=== PATIENT | female | born 1950 | race Two or more races ===

== ENCOUNTER 2019-04-30 10:14 | Emergency (ER) | payer MEDICARE, MEDICAID ==
[~2019-04-30] VITALS: Ht 157.5 cm; Wt 59.0 kg
[~2019-04-30 10:14] MED LIST: ACETAMINOPHEN80 M2 GT; ASCORBIC ACID500 MG GT; ATORVASTATIN CA20 MG GT; CATAPRES0.1 MG GT; DEPAKOTE ER250 MG GT; DOCUSATE SODIU100 MG GT; DUONEB 0.5-3(2.53 ML HHN; FLORANEX GRANU1 EACH GT; JANUVIA25 MG GT; LACTULOSE20 GM/301 GT; METFORMIN HCL1000 M1 GT; MULTI-VITAMIN-1 EACH PO; NEURONTIN100 MG GT; NOVOLIN R100 UNIT/1 SUBQ; SENNA-S TABLET1 EACH GT
--- NOTE | 2019-04-30 10:31 | NUR ---
ED Nurse Note: Pt brought into ED from SNF by ambulance. Ambulance states SNF said pt O2 sat was as low as 77%. Pt current O2 sat is 100% RA and lungs clear to auscultation. VSS. Pt has had perineal/pelvic pain for 4 months 01/21. Pt states burning while urinating. Pt set up on monitor. Pt states she normally uses w/c. Pt has wound abdomen CDI.
[2019-04-30 10:35] VITALS: BP 123/88
[2019-04-30] MEDS ORDERED: VALPROIC A250 MG/51 PO (10:37)
[2019-04-30] MEDS ORDERED: FERROUS SULFAT325 MG ORAL (10:37)
[2019-04-30] MEDS ORDERED: SINEMET 25-1001 EAC1 ORAL (10:37)
[2019-04-30] MEDS ORDERED: FUROSEMIDE40 MG ORAL (10:37)
[2019-04-30] MEDS ORDERED: GLUCAGEN1 M1 IJ (10:37)
[2019-04-30 11:47] LABS: HEMATOCRIT 23.8 % (37.0-47.0); HEMOGLOBIN 7.7 G/DL (12.0-16.0); MEAN CORPUSCULAR VOLUME 93 FL (80-99); PLATELET COUNT 322 K/UL (150-450); RED BLOOD COUNT 2.56 M/UL (4.20-5.40); RED CELL DISTRIBUTION WIDTH 13.4 % (11.6-14.8); WHITE BLOOD COUNT 8.3 K/UL (4.8-10.8)
[2019-04-30 11:59] LABS: ANION GAP 12 mmol/L (5-15); BLOOD UREA NITROGEN 17 mg/dL (7-18); CARBON DIOXIDE 23 MMOL/L (21-32); CHLORIDE 109 MMOL/L (98-107); CREATININE 0.9 MG/DL (0.55-1.30); POTASSIUM 4.7 MMOL/L (3.5-5.1); SODIUM 144 MMOL/L (136-145)
[2019-04-30 12:05] LABS: ALANINE AMINOTRANSFERASE 35 U/L (12-78); ALBUMIN 2.8 G/DL (3.4-5.0); ALBUMIN/GLOBULIN RATIO 0.7 (1.0-2.7); ALKALINE PHOSPHATASE 49 U/L (46-116); ASPARTATE AMINO TRANSFERASE 22 U/L (15-37); BILIRUBIN,TOTAL 0.1 MG/DL (0.2-1.0)
[2019-04-30 13:07] LABS: APPEARANCE,URINE CLEAR; BILIRUBIN, URINE NEGATIVE (NEGATIVE); COLOR,URINE PALE YELLOW; GLUCOSE, URINE (UA) NEGATIVE (NEGATIVE); KETONES,URINE 1+ (NEGATIVE); LEUKOCYTE ESTERASE ,URINE NEGATIVE (NEGATIVE); NITRITE,URINE NEGATIVE (NEGATIVE); PH,URINE 5 (4.5-8.0); PROTEIN,URINE NEGATIVE (NEGATIVE); UROBILINOGEN,URINE NORMAL MG/DL (0.0-1.0)
[2019-04-30] MEDS ORDERED: FLUCONAZOLE100 MG ORAL (13:14)
[2019-04-30] MEDS ORDERED: Fluconazole 150mg tab ORAL ONE (13:15)
--- NOTE | 2019-04-30 13:15 | NUR ---
ED Nurse Note: Report given to Claudia LINDSAY at [facility].
[2019-04-30 13:28] VITALS: BP 114/73
--- NOTE | 2019-04-30 13:30 | NUR ---
ER DISCHARGE NOTE: Patient is cleared to be discharged per ERMD, pt is aox4, on room air, with stable vital signs. pt was given dc and prescription instructions, pt was able to verbalize understanding, pt id band and iv site removed without complications. pt took all belongings. Ambulance [id number] is taking pt to SNF. Report given to Claudia LINDSAY at [facility].
--- NOTE | 2019-04-30 18:11 | Emergency Room Report ---
History of Present Illness General Chief Complaint: Female Urogenital Problems Source: Patient, Medical Record Present Illness HPI 68-year-old female presents ED for evaluation. Brought in by EMS from long-term facility. Per nursing staff patient had an episode of desaturation around 3 AM. Lasted for a few seconds then resolved. Patient satting 100% on room air on arrival. Denies any shortness of breath or chest pain. Denies fevers or chills. Patient does admit to vaginal discharge. States she is been having these symptoms for several months now. 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 Describes itchy sensation. Notes dysuria denies hematuria. Denies abdominal pain. Denies spotting. No other aggravating relieving factors. Denies any other associated symptoms Allergies: Coded Allergies: No Known Allergies (Unverified , 11/08/15) Patient History Past Medical History: HTN, COPD, seizures Past Surgical History: none Pertinent Family History: none Social History: Denies: smoking, alcohol use, drug use Now: No Immunizations: UTD Reviewed Nursing Documentation: PMH: Agreed; PSxH: Agreed Nursing Documentation-PMH Hx Hypertension: Yes Hx COPD: Yes Hx Diabetes: Yes Hx Cancer: No Hx Gastrointestinal Problems: Yes - G tube dysphagia Hx Neurological Problems: Yes Hx Dementia: Yes Hx Seizures: Yes Review of Systems All Other Systems: negative except mentioned in HPI Physical Exam Vital Signs Date Time Temp Pulse Resp B/P (MAP) Pulse Ox O2 Delivery O2 Flow Rate FiO2 04/30/19 10:17 98.1 80 16 120/80 (93) 98 Room Air Sp02 EP Interpretation: reviewed, normal General Appearance: no apparent distress, alert, GCS 15, non-toxic Head: normocephalic, atraumatic Eyes: bilateral eye normal inspection, bilateral eye PERRL ENT: hearing grossly normal, normal pharynx, no angioedema, normal voice Neck: full range of motion, supple/symm/no masses Respiratory: chest non-tender, lungs clear, normal breath sounds, speaking full sentences Cardiovascular #1: regular rate, rhythm, no edema Cardiovascular #2: 2+ carotid (R), 2+ carotid (L), 2+ radial (R), 2+ radial (L) , 2+ dorsalis pedis (R), 2+ dorsalis pedis (L) Gastrointestinal: normal bowel sounds, non tender, soft, non-distended, no guarding, no rebound Rectal: deferred Genitourinary: normal inspection, no CVA tenderness, other - 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 os closed. slight white discharge noted. no CMT. no adnexal tendeness Musculoskeletal: back normal, normal range of motion, gait/station normal, non- tender Neurologic: alert, motor strength/tone normal, oriented x3, sensory intact, responsive, speech normal Psychiatric: judgement/insight normal, memory normal, mood/affect normal, no suicidal/homicidal ideation Reflexes: 3+ bicep (R), 3+ bicep (L), 3+ tricep (R), 3+ tricep (L), 3+ knee (R) , 3+ knee (L) Lymphatic: no adenopathy Medical Decision Making Diagnostic Impression: Primary Impression: Vaginal discharge ER Course Hospital Course 68-year-old female referred to ED for vaginal discharge. Episode of shortness of breath. Asymptomatic now Differential diagnoses include: Cervicitis, UTI, yeast infection, STD Clinical course Patient placed on stretcher in ED. After initial history, physical exam reveals an elderly female in no acute distress. Rolls Baker present. On pelvic exam there is a scant white discharge noted. No CMT. No adnexal tenderness. Collection taken for wet mount. I ordered labs, IV fluids, chest x-ray Labs - no leukocytosis, hemoglobin/hematocrit stable, electrolytes okay, UA negative Wet mount No trichomonas, no clue cells, scant yeast noted chest x-ray No focal consolidation or acute process Patient remains comfortable during ED course. Stable vitals. No episodes of hypoxia. On room air. Discussed with PMD Dr. Rios. He agrees that patient can be safely discharged back to long-term facility. Given Diflucan in ED. Will prescribe Diflucan. diagnosis - vaginal discharge Stable and discharged to SNF with Rx Diflucan. Followup with PMD/EMERGENCY ROOM TECH. Return to ED if symptoms recur or worsen Labs Test 04/30/19 11:22 04/30/19 12:00 White Blood Count 8.3 K/UL (4.8-10.8) Red Blood Count 2.56 M/UL (4.20-5.40) Hemoglobin 7.7 G/DL (12.0-16.0) Hematocrit 23.8 % (37.0-47.0) Mean Corpuscular Volume 93 FL (80-99) Mean Corpuscular Hemoglobin 29.9 PG (27.0-31.0) Mean Corpuscular Hemoglobin Concent 32.1 G/DL (32.0-36.0) Red Cell Distribution Width 13.4 % (11.6-14.8) Platelet Count 322 K/UL (150-450) Mean Platelet Volume 5.4 FL (6.5-10.1) Neutrophils (%) (Auto) % (45.0-75.0) Lymphocytes (%) (Auto) % (20.0-45.0) Monocytes (%) (Auto) % (1.0-10.0) Eosinophils (%) (Auto) % (0.0-3.0) Basophils (%) (Auto) % (0.0-2.0) Differential Total Cells Counted 100 Neutrophils % (Manual) 54 % (45-75) Lymphocytes % (Manual) 41 % (20-45) Monocytes % (Manual) 4 % (1-10) Eosinophils % (Manual) 1 % (0-3) Basophils % (Manual) 0 % (0-2) Band Neutrophils 0 % (0-8) Platelet Estimate Adequate Platelet Morphology Normal Polychromasia 1+ Hypochromasia 1+ Sodium Level 144 MMOL/L (136-145) Potassium Level 4.7 MMOL/L (3.5-5.1) Chloride Level 109 MMOL/L (98-107) Carbon Dioxide Level 23 MMOL/L (21-32) Anion Gap 12 mmol/L (5-15) Blood Urea Nitrogen 17 mg/dL (7-18) Creatinine 0.9 MG/DL (0.55-1.30) Estimat Glomerular Filtration Rate > 60 mL/min (>60) Glucose Level 132 MG/DL (74-106) Calcium Level 9.0 MG/DL (8.5-10.1) Total Bilirubin 0.1 MG/DL (0.2-1.0) Aspartate Amino Transf (AST/SGOT) 22 U/L (15-37) Alanine Aminotransferase (ALT/SGPT) 35 U/L (12-78) Alkaline Phosphatase 49 U/L (46-116) Total Protein 6.6 G/DL (6.4-8.2) Albumin 2.8 G/DL (3.4-5.0) Globulin 3.8 g/dL Albumin/Globulin Ratio 0.7 (1.0-2.7) Lipase 305 U/L (73-393) Urine Color Pale yellow Urine Appearance Clear Urine pH 5 (4.5-8.0) Urine Specific [place] 1.020 (1.005-1.035) Urine Protein Negative (NEGATIVE) Urine Glucose (UA) Negative (NEGATIVE) Urine Ketones 1+ (NEGATIVE) Urine Blood Negative (NEGATIVE) Urine Nitrite Negative (NEGATIVE) Urine Bilirubin Negative (NEGATIVE) Urine Urobilinogen Normal MG/DL (0.0-1.0) Urine Leukocyte Esterase Negative (NEGATIVE) Chest X-Ray Diagnostic Results Chest X-Ray Diagnostic Results : Chest X-Ray Ordered: Yes # of Views/Limited/Complete: 1 View Indication: Shortness of Breath EP Interpretation: Yes Interpretation: no consolidation, no effusion, no pneumothorax, no acute cardiopulmonary disease Impression: No acute disease Electronically Signed by: Electronically signed by Agustin Cruz MD Last Vital Signs Date Time Temp Pulse Resp B/P (MAP) Pulse Ox O2 Delivery O2 Flow Rate FiO2 04/30/19 13:28 98.7 80 19 114/73 100 Room Air Status: improved Disposition: XFER SNF Condition: Stable Scripts Fluconazole (FLUCONAZOLE) 100 Mg Tablet 100 MG ORAL DAILY, #3 TAB 0 Refills Prov: Agustin Cruz MD 04/30/19 Referrals: Johny Williamson MD, Ali MD (PCP) Patient Instructions: Vaginal Yeast Infection, Adult, Vaginitis Agustin Cruz MD Apr 30, 2019 18:11
== END 2019-04-30 13:28 ==
LOC: EDBD 10:14 → EMR 11:10
DX: N89.8 Other specified noninflammatory disorders of vagina (principal); I10 Essential (primary) hypertension; J44.9 Chronic obstructive pulmonary disease, unspecified; E11.9 Type 2 diabetes mellitus without complications; G40.909 Epilepsy, unspecified, not intractable, without status epilepticus; F03.90 Unspecified dementia, unspecified severity, without behavioral disturbance, psychotic disturbance, mood disturbance, and anxiety; Z93.1 Gastrostomy status
CPT/HCPCS: 36415; 71045; 80053; 81003; 83690; 85007; 85025; 87210; 99284

== ENCOUNTER 2019-05-11 23:22 | Inpatient (IN) | payer MEDICARE, MEDICAID ==
[~2019-05-11] VITALS: Ht 154.9 cm; Wt 54.4 kg
[~2019-05-11 23:22] MED LIST changes: +FERROUS SULFAT325 MG ORAL; +FLUCONAZOLE100 MG ORAL; +FUROSEMIDE40 MG ORAL; +GLUCAGEN1 M1 IJ; +SINEMET 25-1001 EAC1 ORAL; +VALPROIC A250 MG/51 PO
--- NOTE | 2019-05-11 23:30 | NUR ---
ED Nurse Note: PT KATELYNN FIRST[facility] FROM [facility] D/T NVD, ABD PAIN X1DAY. PER EMS, PT HAD FEVER OF 103 AT FACILITY AND TYLENOL WAS GIVEN. OT TEMP AT TRIAGE IS 97.7. PT VSS, NAD. ERMD AT BEDSIDE. WILL CONTINUE TO MONITOR PATIENT.
[2019-05-11] MEDS ORDERED: DiphenhydrAMINE 50mg/ml Inj IVP ONE (23:45)
[2019-05-11] MEDS ORDERED: Metoclopramide 10mg/2ml Inj IVP ONE (23:45)
[2019-05-11] MEDS ORDERED: FUROSEMIDE40 MG ORAL (23:49)
[2019-05-11] MEDS ORDERED: CITALOPRAM10 MG/5 M1 ORAL (23:49)
[2019-05-11] MEDS ORDERED: MOM30 ML ORAL (23:49)
[2019-05-11] MEDS ORDERED: HUMALOG100 UNIT/3 SUBQ (23:49)
[2019-05-11] MEDS ORDERED: COLACE100 MG ORAL (23:49)
[2019-05-11] MEDS ORDERED: DULCOLAX10 MG RC (23:49)
[2019-05-11] MEDS ORDERED: MIRALAX17 G2 ORAL (23:49)
[2019-05-11] MEDS ORDERED: AMANTADINE50 MG/5 ML ORAL (23:49)
--- NOTE | 2019-05-11 23:50 | NUR ---
ED Nurse Note: BLOOD AND URINE COLLECTED AND SENT TO LAB.
[2019-05-12] VITALS (7 sets, daily range): BP systolic 94–131; BP diastolic 51–71
--- NOTE | 2019-05-12 | NUR ---
ED Nurse Note: XR AT BEDSIDE.
--- NOTE | 2019-05-12 00:04 | Emergency Room Report ---
History of Present Illness General Chief Complaint: Vomiting Source: Patient, Medical Record, EMS Present Illness HPI Patient presents with vomiting. Began earlier today. She is not been able to keep anything down. The patient has a history of insulin-dependent diabetes. She believes her blood sugars have been okay. She denies abdominal pain. She has been moving her bowels without difficulty. She denies any fevers or chills. No sore throat, chest pain, palpitations, shortness of breath, cough, joint pain , rashes, depression, anxiety, visual changes, dizziness, headache. Last admitted 2015 for sepsis. Charge diagnoses: 1. Sepsis possibly from urinary tract infection. 2. Urinary tract infection with Escherichia coli extended-spectrum beta-lactamase. 3. Seizure disorder. 4. Diabetes mellitus with hyperglycemia. 5. Dysphagia status post percutaneous endoscopic gastrostomy. 6. Chronic encephalopathy. 7. Hyperlipidemia with type 2 diabetes. 8. Elevated liver function tests with ultrasound finding of cholelithiasis and normal bilirubin. 9. Scab on the right ear and stage I decubitus ulcer on the sacral coccygeal area present on admission. Allergies: Coded Allergies: No Known Allergies (Unverified , 11/08/15) Patient History Past Medical History: see triage record, old chart reviewed Past Surgical History: other - Gastrostomy tube Social History: Denies: smoking, alcohol use, drug use Social History Narrative [facility] facility Now: No Reviewed Nursing Documentation: PMH: Agreed; PSxH: Agreed Nursing Documentation-PMH Hx Cardiac Problems: Yes - tachycardia, aterosclerosis of aorta Hx Hypertension: Yes Hx COPD: Yes Hx Diabetes: Yes - anemia Hx Gastrointestinal Problems: Yes - hepatic failure, GERD History Of Psychiatric Problem: Yes - major depression, bipolar Hx Dementia: Yes Hx Seizures: Yes Review of Systems All Other Systems: negative except mentioned in HPI Physical Exam Vital Signs Date Time Temp Pulse Resp B/P (MAP) Pulse Ox O2 Delivery O2 Flow Rate FiO2 05/11/19 23:23 97.7 95 18 127/73 (91) 98 Nasal Cannula 3.0 General Appearance: alert, non-toxic, thin, other - Frail, Chronically Ill Head: normocephalic, atraumatic Eyes: bilateral eye normal inspection, bilateral eye PERRL, bilateral eye EOMI ENT: moist mucus membranes Neck: supple, no meningismus Respiratory: lungs clear, normal breath sounds, no rhonchi, no respiratory distress Cardiovascular #1: regular rate, rhythm, no edema Cardiovascular #2: 2+ radial (R) Gastrointestinal: non tender, soft, decreased bowel sounds Genitourinary: no CVA tenderness Musculoskeletal: no calf tenderness, other - Atrophy Neurologic: alert, sensory intact, motor weakness - Diffuse Psychiatric: mood/affect normal Skin: no rash, Decubitus/Ulcer - Stage I sacrum, warm/dry Medical Decision Making Diagnostic Impression: Primary Impression: Sepsis Qualified Codes: A41.9 - Sepsis, unspecified organism; R65.20 - Severe sepsis without septic shock; N17.9 - Acute kidney failure, unspecified Additional Impressions: UTI (urinary tract infection) Qualified Codes: N39.0 - Urinary tract infection, site not specified Elevated lactic acid level Renal insufficiency Anemia Qualified Codes: D64.9 - Anemia, unspecified Type 2 diabetes mellitus Qualified Codes: E11.9 - Type 2 diabetes mellitus without complications Stage I decubitus ulcer sacrum ER Course Patient presents with vomiting. Differential includes acute myocardial infarction, small bowel obstruction, gastroenteritis, pancreatitis, poisoning amongst others. Evaluation with EKG, chest x-ray, abdominal film and labs. Patient will be treated with IV hydration, Pepcid, Reglan and Benadryl. EKG sinus rhythm with left atrial enlargement and nonspecific ST-T wave changes rate 91. Leukocytosis. Renal insufficiency. Chest x-ray no infiltrates. Hyperglycemia SEPSIS RE-EVALUATION: Lab called with elevated lactic acid. This is a surprise as the patient is been stable vital signs. Immediate ordering of 30 mill per kilogram bolus. As the patient has GI symptoms with antibiotics ordered immediately to cover GI source.v I, Walker Jennings MD, Performed the Sepsis Re- evaluation at 00:15. Improved. Urine late to be sent. Returns TNTC WBC. Levaquin added. 4:10 Level of care increased to stepdown unit due to extremely elevated lactic acid. Laboratory Tests Test 05/11/19 23:56 05/12/19 00:10 05/12/19 01:50 05/12/19 02:45 White Blood Count 18.9 K/UL (4.8-10.8) H Red Blood Count 3.41 M/UL (4.20-5.40) L Hemoglobin 9.6 G/DL (12.0-16.0) L Hematocrit 29.8 % (37.0-47.0) L Mean Corpuscular Volume 87 FL (80-99) Mean Corpuscular Hemoglobin 28.1 PG (27.0-31.0) Mean Corpuscular Hemoglobin Concent 32.2 G/DL (32.0-36.0) Red Cell Distribution Width 14.1 % (11.6-14.8) Platelet Count 463 K/UL (150-450) H Mean Platelet Volume 5.3 FL (6.5-10.1) L Neutrophils (%) (Auto) % (45.0-75.0) Lymphocytes (%) (Auto) % (20.0-45.0) Monocytes (%) (Auto) % (1.0-10.0) Eosinophils (%) (Auto) % (0.0-3.0) Basophils (%) (Auto) % (0.0-2.0) Differential Total Cells Counted 100 Neutrophils % (Manual) 85 % (45-75) H Lymphocytes % (Manual) 10 % (20-45) L Monocytes % (Manual) 5 % (1-10) Eosinophils % (Manual) 0 % (0-3) Basophils % (Manual) 0 % (0-2) Band Neutrophils 0 % (0-8) Platelet Estimate Adequate Platelet Morphology Normal Prothrombin Time 10.0 SEC (9.30-11.50) Prothrombin Time INR 0.9 (0.9-1.1) Activated Partial Thromboplast Time 24 SEC (23-33) Sodium Level 138 MMOL/L (136-145) Potassium Level 5.6 MMOL/L (3.5-5.1) H Chloride Level 97 MMOL/L (98-107) L Carbon Dioxide Level 25 MMOL/L (21-32) Anion Gap 16 mmol/L (5-15) H Blood Urea Nitrogen 47 mg/dL (7-18) H Creatinine 1.5 MG/DL (0.55-1.30) H Estimate Glomerular Filtration Rate 34.5 mL/min (>60) Glucose Level 284 MG/DL (74-106) H Calcium Level 9.1 MG/DL (8.5-10.1) Total Bilirubin 0.1 MG/DL (0.2-1.0) L Aspartate Amino Transferase (AST) 28 U/L (15-37) Alanine Aminotransferase (ALT) 37 U/L (12-78) Alkaline Phosphatase 71 U/L (46-116) Troponin I 0.000 ng/mL (0.000-0.056) Total Protein 7.8 G/DL (6.4-8.2) Albumin 3.3 G/DL (3.4-5.0) L Globulin 4.5 g/dL Albumin/Globulin Ratio 0.7 (1.0-2.7) L Lipase 211 U/L (73-393) Lactic Acid Level 7.50 mmol/L (0.4-2.0) H 6.80 mmol/L (0.66-2.22) H Urine Color Pale yellow Urine Appearance Cloudy Urine pH 5 (4.5-8.0) Urine Specific [place] 1.020 (1.005-1.035) Urine Protein 1+ (NEGATIVE) H Urine Glucose (UA) 1+ (NEGATIVE) H Urine Ketones 2+ (NEGATIVE) H Urine Blood 1+ (NEGATIVE) H Urine Nitrite Negative (NEGATIVE) Urine Bilirubin Negative (NEGATIVE) Urine Urobilinogen Normal MG/DL (0.0-1.0) Urine Leukocyte Esterase 3+ (NEGATIVE) H Urine RBC 2-4 /HPF (0 - 2) H Urine WBC Tntc /HPF (0 - 2) H Urine Squamous Epithelial Cells Many /LPF (NONE/OCC) H Urine Bacteria Moderate /HPF (NONE) H EKG Diagnostic Results Rate: normal Rhythm: NSR ST Segments: no acute changes - Left atrial enlargement Rhythm Strip Diag. Results EP Interpretation: yes Rhythm: NSR, no PVC's, no ectopy Chest X-Ray Diagnostic Results Chest X-Ray Diagnostic Results : Chest X-Ray Ordered: Yes # of Views/Limited/Complete: 1 View Indication: Other EP Interpretation: Yes Interpretation: no consolidation, no effusion, no pneumothorax, other - Aortic calcifications Impression: No acute disease Electronically Signed by: Electronically signed by Walker Jennings MD Last Vital Signs Date Time Temp Pulse Resp B/P (MAP) Pulse Ox O2 Delivery O2 Flow Rate FiO2 05/12/19 20:00 86 05/12/19 20:00 Room Air 05/12/19 20:00 98.9 20 114/57 (76) 99 05/12/19 05:27 3.0 98 Status: improved Disposition: ADMITTED INPATIENT Condition: Serious Walker Jennings MD May 12, 2019 00:04
[2019-05-12 00:19] LABS: HEMATOCRIT 29.8 % (37.0-47.0); HEMOGLOBIN 9.6 G/DL (12.0-16.0); MEAN CORPUSCULAR VOLUME 87 FL (80-99); PLATELET COUNT 463 K/UL (150-450); RED BLOOD COUNT 3.41 M/UL (4.20-5.40); RED CELL DISTRIBUTION WIDTH 14.1 % (11.6-14.8); WHITE BLOOD COUNT 18.9 K/UL (4.8-10.8)
[2019-05-12 00:25] LABS: ANION GAP 16 mmol/L (5-15); BLOOD UREA NITROGEN 47 mg/dL (7-18); CALCIUM 9.1 MG/DL (8.5-10.1); CARBON DIOXIDE 25 MMOL/L (21-32); CHLORIDE 97 MMOL/L (98-107); CREATININE 1.5 MG/DL (0.55-1.30); POTASSIUM 5.6 MMOL/L (3.5-5.1); SODIUM 138 MMOL/L (136-145)
[2019-05-12 00:27] LABS: INR 0.9 (0.9-1.1)
[2019-05-12 00:30] LABS: ALANINE AMINOTRANSFERASE 37 U/L (12-78); ALBUMIN 3.3 G/DL (3.4-5.0); ALBUMIN/GLOBULIN RATIO 0.7 (1.0-2.7); ALKALINE PHOSPHATASE 71 U/L (46-116); ASPARTATE AMINO TRANSFERASE 28 U/L (15-37); BILIRUBIN,TOTAL 0.1 MG/DL (0.2-1.0)
[2019-05-12] MEDS ORDERED: Cefepime HCl 1 GM in D5W 55 ML IVPB ONE (01:00)
--- NOTE | 2019-05-12 01:30 | NUR ---
ED Nurse Note: REFLEX LACTIC SENT TO LAB
[2019-05-12 03:03] LABS: BILIRUBIN, URINE NEGATIVE (NEGATIVE); COLOR,URINE PALE YELLOW; GLUCOSE, URINE (UA) 1+ (NEGATIVE); KETONES,URINE 2+ (NEGATIVE); NITRITE,URINE NEGATIVE (NEGATIVE); PH,URINE 5 (4.5-8.0); PROTEIN,URINE 1+ (NEGATIVE); UROBILINOGEN,URINE NORMAL MG/DL (0.0-1.0)
[2019-05-12 03:21] LABS: APPEARANCE,URINE CLOUDY; LEUKOCYTE ESTERASE ,URINE 3+ (NEGATIVE)
--- NOTE | 2019-05-12 03:30 | NUR ---
ED Nurse Note: PATIENT IS PLACED ON SHANE BED. PT VSS, NAD. WILL CONTINUE TO MONITOR PATIENT.
--- NOTE | 2019-05-12 04:00 | NUR ---
ED Nurse Note: PATIENT IS CALM AND SLEEPING. VSS, NAD. WILL CONTINUE TO MONITOR PATIENT.
--- NOTE | 2019-05-12 07:43 | NUR ---
NURSE NOTES: Received report from NEFTALI Juarez via telephone.
--- NOTE | 2019-05-12 07:58 | NUR ---
TRANSFER TO FLOOR: Patient transferred to SDU as ordered, per Dr Rios. Report given to NEFTALI Rush. Belongings and medications given to receiving nurse. Family and or S/O informed of transfer.
--- NOTE | 2019-05-12 08:05 | NUR ---
NURSE NOTES: Dr Marin at bedside.
--- NOTE | 2019-05-12 08:15 | NUR ---
NURSE NOTES: Received patient via hospital bed from ED, accompanied by RN and on call pharmacy technician. Patient is awake, verbally responsive, able to make needs known. On room air, no respiratory distress noted at this time. Patient denies n/v/d/abd pain. Placed on engine monitor, shows NSR with HR 98. Wound photos taken per protocol. Left AC IV 20g intact and patent. Safety precautions in place, bed locked, alarmed, and in lowest position, side rails up x3, and call light left within reach. Dr Rios contacted for admitting orders, awaiting for call back. Will continue to monitor patient.
--- NOTE | 2019-05-12 08:23 | NUR ---
NURSE NOTES:WOUND CARE NOTES:Pt presented on admission with Moisture intertrigo cleft of buttocks. A 4.6cm x (W)0.4cm slit that is moist with macerated and erythematous borders noted to cleft of buttocks .Scattered satellite lesions in close proximity within cleft of buttocks. Both heels are firm and blanchable. No other skin concerns noted. Pt demonstrated ability to reposition self in bed and has been educated on wound prevention. Pt encouraged to frequently turn ,at least hourly while in bed. Triad paste applied to buttocks. Pt is incontinent and encouraged to notify staff when soiled to minimize exposure to incontinence.Cavilon Skin Barrier applied to both heels and each heel covered with Optifoam drsg and floated off mattress. Tx.Plan: Apply Triad paste to cleft of buttocks with each incontinence care Cover Sacrum with Optifoam drsg to minimize friction. Apply Cavilon Skin Barrier to both heels. Cover each heel with Optifoam drsg. Change every 7 days and prn. Reposition at least every 2hours or as tolerated. Off-load heels with pillow.
--- NOTE | 2019-05-12 09:43 | NUR ---
NURSE NOTES: Dr Rios responded with admitting orders, will enter and will carry out. Addendum: 05/12/19 at 1241 by Kira Duncan RN Dr Rios ordered to d/c home meds. Notified and made aware patient is diabetic.
--- NOTE | 2019-05-12 10:08 | Diagnostic Imaging Report ---
Indication: Abdominal pain Technique: Supine view of the abdomen Comparison: none Findings: Unremarkable bowel gas pattern. No masses or unusual calcifications. Impression: Negative
--- NOTE | 2019-05-12 10:09 | Diagnostic Imaging Report ---
Indication: Abdominal pain Technique: One view of the chest Comparison: 04/30/2019 Findings: The heart size is normal. The lungs and pleural spaces are clear. There are mitral annular calcifications. No significant interim change Impression: No acute process
--- NOTE | 2019-05-12 10:45 | NUR ---
NURSE NOTES: Dr Bianchi at bedside for assessment. No new orders received at this time, will continue to monitor.
--- NOTE | 2019-05-12 11:00 | NUR ---
NURSE NOTES: Dr Calvert and Dr Rios at bedside. No new orders received at this time. Will continue to monitor patient.
--- NOTE | 2019-05-12 12:03 | Diagnostic Imaging Report ---
Indication: Bilateral leg pain Technique: Grayscale and duplex images of the bilateral lower extremity veins Comparison: none Findings: Bilaterally, grayscale and duplex images demonstrate no evidence of intraluminal thrombus. Normal phasic Doppler waveforms, demonstrating normal augmentation response and no evidence of valvular insufficiency. Patent tibial veins and saphenous veins. Normal compressibility Impression: Negative for evidence of lower extremity deep venous thrombosis
--- NOTE | 2019-05-12 13:02 | NUR ---
NURSE NOTES: Dr Olga Martinez present in the unit, notified and made aware of patient's WBC.
[2019-05-12] MEDS ORDERED: Sodium Chloride 550 ML IV SCH (14:00)
--- NOTE | 2019-05-12 14:03 | Consultation ---
Consult Note Consult Note Asked to eval for renal failure- Chief Complaint: Vomiting Patient presents with vomiting. Began earlier today. She is not been able to keep anything down. The patient has a history of insulin-dependent diabetes. She believes her blood sugars have been okay. She denies abdominal pain. She has been moving her bowels without difficulty. She denies any fevers or chills. No Known Allergies (Unverified , 11/08/15) Hx Cardiac Problems: Yes - tachycardia, aterosclerosis of aorta Hx Hypertension: Yes Hx COPD: Yes Hx Diabetes: Yes - anemia Hx Gastrointestinal Problems: Yes - hepatic failure, GERD History Of Psychiatric Problem: Yes - major depression, bipolar Hx Dementia: Yes Hx Seizures: Yes interviewed examined data reviewed . Assessment/Plan Renal failure Acute- dehydration , ? CKD underlying UTI , High Lactic HyperKalemia DM Anemia Hydrate- Anemia castro IV protonix Monitor renal parameters José Miguel Calvert MD May 12, 2019 14:03
[2019-05-12] MEDS: Piperacillin/Tazobactam 3.375 GM in NS 110 ML IVPB SCH ×2 (15:45→23:05)
--- NOTE | 2019-05-12 15:56 | NUR ---
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 97.7 HR 95 RR 18 B/P 127/73 3L NC WBC 18.9 K 5.6 BUN 47 CR 1.5 AGAP 16 UA+PROTEIN,GLUCOSE,KETONES,LEUKOCYTE ESTERASE, EPITH CELL,BACTERIA CXR= NEGATIVE IS: REGLAN IV IV BOLUS NS X 1 LITER ADMITTED TO STEP DOWN STEP DOWN STATUS DCP RETURN TO [place]
--- NOTE | 2019-05-12 18:12 | NUR ---
NURSE NOTES: Patient refused SCD's at this time; patient also removed Purewick and bilateral heel optifoam dressing. Patient refused to have straight cath for urine collection.
--- NOTE | 2019-05-12 18:15 | Consultation ---
DATE OF CONSULTATION: 05/12/2019 INFECTIOUS DISEASE CONSULTATION CONSULTING PHYSICIAN: Rogelio Martinez M.D. PRIMARY ATTENDING: Amelie Rios M.D. REASON FOR CONSULT: UTI. HISTORY OF PRESENT ILLNESS: This is a 68-year-old white female who is a [place] [facility] resident admitted early this morning because of nausea, vomiting. She was found to have leukocytosis of 18,000 and pyuria. The patient states that she could not keep anything for 3 days and currently is hungry. PAST MEDICAL HISTORY: Significant for diabetes mellitus, hypertension, COPD, major depression, hyperlipidemia. Has weakness in the right leg. ALLERGIES: No known drug allergies. MEDICATIONS: Get a dose of cefepime and Levaquin in the ER. Also a dose of Flagyl. Get a dose of metoclopramide, diphenhydramine, and getting Zofran. SOCIAL HISTORY: Single. group home resident. . No history of alcohol, drug abuse, or smoking. CODE STATUS: DNR. REVIEW OF SYSTEMS: No fever. No chills. No coughing. No shortness of breath. Nausea and vomiting resolved. The patient has urinary incontinence. Cannot walk because of weakness in the right leg. PHYSICAL EXAMINATION: VITAL SIGNS: Temperature 98.4, pulse 90, blood pressure 94/52. GENERAL APPEARANCE: No acute distress. HEAD AND NECK: Has no teeth or denture. Has moist mucous membranes. HEART: Normal rate. LUNGS: Clear. ABDOMEN: Soft and nontender. EXTREMITIES: Has no edema. NEUROLOGIC: Awake, alert, oriented. Has tremor in the upper extremity, more on the right side. LABORATORY AND DIAGNOSTIC DATA: Sodium 138, potassium 5.6, chloride 97, BUN 47, creatinine 1.5. Lactic acid is 3.3, coming down from 7.5. UA showed wbc too numerous to count, nitrite negative, leukocyte esterase 2+, bacteria moderate. Chest x-ray, no acute process. Abdominal x-ray also was negative. Venous duplex also showed no DVT. WBC 8.9, hemoglobin 9.6, hematocrit 29.8, platelets 463. IMPRESSION: UTI. The patient has leukocytosis, acute renal failure. Has diabetes mellitus, hypertension, COPD by history, anemia. Has history of UTI with ESBL organism couple of years ago. RECOMMENDATION: Start on Zosyn. We will follow up the cultures. At the end of my exam, I thank Dr. Rios for involving me in the care of this patient. Rogelio Martinez M.D. DR: ISAIAH JOB#: [id number] CC:
--- NOTE | 2019-05-12 18:57 | General Progress Note ---
Assessment/Plan Assessment/Plan: Assessment - N/V - Sepsis - lactic acidosis - Renal failure Recommendations - Abx - IVF - Clear liq - follow labs - Check OB - consider CT and/pelvis Thank you Sangeeta Bianchi MD Subjective Allergies: Coded Allergies: No Known Allergies (Unverified , 11/08/15) Objective Last 24 Hour Vital Signs Date Time Temp Pulse Resp B/P (MAP) Pulse Ox O2 Delivery O2 Flow Rate FiO2 05/12/19 16:00 Room Air 05/12/19 16:00 97.4 88 18 108/62 (77) 99 05/12/19 15:14 85 05/12/19 12:06 86 05/12/19 12:00 98.4 90 18 94/52 (66) 96 05/12/19 12:00 Room Air 05/12/19 08:15 Room Air 05/12/19 08:03 102 05/12/19 08:00 98.4 96 94/51 (65) 05/12/19 08:00 98.4 96 18 94/51 (65) 95 05/12/19 07:58 98.2 91 22 137/84 98 Room Air 05/12/19 05:27 98.3 93 20 118/56 98 Room Air 3.0 98 05/12/19 02:30 98.7 89 20 131/71 98 Room Air 3.0 98 05/12/19 00:18 98.1 92 20 127/67 98 Room Air 05/12/19 00:18 93 20 Room Air 98 05/11/19 23:23 97.7 95 18 127/73 (91) 98 Nasal Cannula 3.0 Intake and Output 05/11/19 05/12/19 19:00 07:00 Intake Total 2600 ml Balance 2600 ml Intake Oral 0 ml IV Total 2600 ml Laboratory Tests 05/11/19 23:56: White Blood Count 18.9H, Red Blood Count 3.41L, Hemoglobin 9.6L, Hematocrit 29.8L, Mean Corpuscular Volume 87, Mean Corpuscular Hemoglobin 28.1, Mean Corpuscular Hemoglobin Concent 32.2, Red Cell Distribution Width 14.1, Platelet Count 463H, Mean Platelet Volume 5.3L, Neutrophils (%) (Auto) , Lymphocytes (%) (Auto) , Monocytes (%) (Auto) , Eosinophils (%) (Auto) , Basophils (%) (Auto) , Differential Total Cells Counted 100, Neutrophils % (Manual) 85H, Lymphocytes % (Manual) 10L, Monocytes % (Manual) 5, Eosinophils % (Manual) 0, Basophils % ( Manual) 0, Band Neutrophils 0, Platelet Estimate Adequate, Platelet Morphology Normal, Prothrombin Time 10.0, Prothromb Time International Ratio 0.9, Activated Partial Thromboplast Time 24, Sodium Level 138, Potassium Level 5.6H, Chloride Level 97L, Carbon Dioxide Level 25, Anion Gap 16H, Blood Urea Nitrogen 47H, Creatinine 1.5H, Estimat Glomerular Filtration Rate 34.5, Glucose Level 284H, Calcium Level 9.1, Total Bilirubin 0.1L, Aspartate Amino Transf (AST/SGOT ) 28, Alanine Aminotransferase (ALT/SGPT) 37, Alkaline Phosphatase 71, Troponin I 0.000, Total Protein 7.8, Albumin 3.3L, Globulin 4.5, Albumin/Globulin Ratio 0.7L, Lipase 211 05/12/19 00:10: Lactic Acid Level 7.50H 05/12/19 01:50: Lactic Acid Level 6.80H 05/12/19 02:45: Urine Color Pale yellow, Urine Appearance Cloudy, Urine pH 5, Urine Specific Pruden 1.020, Urine Protein 1+H, Urine Glucose (UA) 1+H, Urine Ketones 2+H, Urine Blood 1+H, Urine Nitrite Negative, Urine Bilirubin Negative, Urine Urobilinogen Normal, Urine Leukocyte Esterase 3+H, Urine RBC 2-4H, Urine WBC TntcH, Urine Squamous Epithelial Cells ManyH, Urine Bacteria ModerateH 05/12/19 08:50: Lactic Acid Level 3.90H, Carcinoembryonic Antigen [Pending] 05/12/19 10:05: Lactic Acid Level 3.30H 05/12/19 15:55: Lactic Acid Level 3.80H Height (Feet): 5 Height (Inches): 1.00 Weight (Pounds): 120 Sangeeta Bianchi MD May 12, 2019 18:57
--- NOTE | 2019-05-12 19:18 | NUR ---
HAND-OFF: Report given to Leo Contreras RN. Endorsed plan of care. Patient in stable condition.
--- NOTE | 2019-05-12 19:30 | NUR ---
NURSE NOTES: Pt report received from Kira LINDSAY. pt remains stable. pt is alert and oriented times 1, able to follow simple commands. pt is on Room air able to sat at 97, no acute sings symptoms of acute resp distress noted. pt is on public health advisor showing NSR, no acute signs symptoms of acute cardiac distress noted. pt bed is low, locked, armed, bed rails up times 3, call light within reach. will follow plan of care.
[2019-05-12] MEDS: Pantoprazole Inj IVP SCH (20:46)
--- NOTE | 2019-05-12 23:45 | Consultation ---
DATE OF CONSULTATION: 05/12/2019 GASTROENTEROLOGY CONSULTATION CONSULTING PHYSICIAN: Sangeeta Bianchi M.D. REFERRING PHYSICIAN: Aemlie Rios M.D. CHIEF COMPLAINT: I was asked to see this patient by Dr. Amelie Rios for evaluation of vomiting and anemia. HISTORY OF PRESENT ILLNESS: The patient is a pleasant 68-year-old white woman who was brought into the hospital due to vomiting. She was soon, after diagnosis of urinary tract infection, has been placed on antibiotics. The patient states, however, that she has been vomiting intermittently for about four weeks, however, this one occurs only one to twice a week. She has occasional loose stools, but no history of any endoscopy or colonoscopy in this patient. She resides in a snf. Her only abdominal surgery was a tubal ligation. She has a defect in the epigastric area, which typically corresponds to a gastrostomy tube position, but she states this was for a different tube. PAST MEDICAL HISTORY: History of diabetes. FAMILY HISTORY: Positive for great grandfather, having some type of cancer. SOCIAL HISTORY: The patient does not smoke or drink alcohol. REVIEW OF SYSTEMS: Otherwise negative. PHYSICAL EXAMINATION: GENERAL: Elderly woman, seen in her room. HEENT: Normocephalic and atraumatic. Sclerae anicteric. Oropharynx clear. NECK: Supple. CHEST: Clear to auscultation. CARDIAC: Revealed regular rate. ABDOMEN: Soft. surgical defect in the epigastric area, which had healed. EXTREMITIES: Revealed no edema. There was some tremor. LABORATORY DATA: Noted. ASSESSMENT: This patient presents with sepsis, which is presumed to be due to urinary tract infection. She also developed lactic acidosis, which is improving. Her treatment should be supported with IV fluids and antibiotics. I will start a diet and she appears to be better now. Once she tolerates clear liquids today then her diet can be advanced tomorrow. I will check the stool for occult blood. At some point in the future, she should undergo endoscopy and colonoscopy to evaluate the GI tract. Should her symptoms not improve in initial 24 hours of antibiotics and IV fluids, then a CT scan of the abdomen and pelvis can be considered. RECOMMENDATIONS: Per above discussion and per orders from the chart. Thank you for asking me to participate in care this patient. Sangeeta Bianchi M.D. DR: CHARISSE JOB#: [id number] CC: LAVELL
[2019-05-13] VITALS: BP 127/73
--- NOTE | 2019-05-13 01:24 | NUR ---
NURSE NOTES: Called MD HADAZ to report pt feeling short of breath and pt feeling anxious. awaiting call back. awaiting possible new orders. vital signs stable. House super visor Tamika aware.
--- NOTE | 2019-05-13 01:30 | History and Physical Report ---
DATE OF ADMISSION: 05/12/2019 HISTORY OF PRESENT ILLNESS: The patient admitted for multiple reasons that includes vomiting. The patient has been vomiting for two days and also abdominal pain for two days and diarrhea for two days. The patient also had a foul-smelling urine and diarrhea at the [facility]. The patient also has had fever at the [facility], has also been admitted to rule out sepsis as well. Symptoms has been going on for about two days. The patient denies rectal bleeding. The patient's stool has been collected to rule out for C. diff. Denies orthopnea. Denies shortness of breath. Denies wheezing. Denies cough. Denies chest pain. PAST MEDICAL HISTORY: Significant for hyperlipidemia, Parkinson's, mood disorder, constipation, NIDDM. PAST SURGICAL HISTORY: Tubal ligation. SOCIAL HISTORY: Denies history of smoking. Denies history of drug or alcohol abuse. ALLERGIES: No known allergies. MEDICATIONS: Lipitor, bisacodyl, citalopram, Colace, ferrous sulfate, Lasix, insulin, metformin. FAMILY HISTORY: Noncontributory. REVIEW OF SYSTEMS: HEENT: Denies headaches. RESPIRATORY: Denies shortness of breath. Denies cough. CARDIOVASCULAR: Denies chest pain. No orthopnea. GASTROINTESTINAL: Reports vomiting, diarrhea, and abdominal pain for two days. GASTROINTESTINAL: Denies rectal bleeding. CENTRAL NERVOUS SYSTEM: Denies change in speech pattern. PHYSICAL EXAMINATION: VITAL SIGNS: Temperature is 98.4, pulse is 90, blood pressure is 94/52. HEENT: PERRLA. NECK: Supple. No lymphadenopathy CHEST: Clear to auscultation. CARDIOVASCULAR: Regular rate and rhythm. No murmurs or extra sounds. GASTROINTESTINAL: Soft, nontender, nondistended. No organomegaly. EXTREMITIES: No edema. Moves all four extremities. Sensory intact to light touch. Reflexes equal on both sides. LABORATORY DATA: WBC of , hemoglobin 9.6, and platelets of 463. Lactic acid 6.8. ASSESSMENT/PLAN: Sepsis, vomiting, and diarrhea, need to rule out C. difficile as well and causing most of her symptomatology, we need to rule that out. The patient also has fevers at the [facility], we are going to rule out sepsis. I have consulted Dr. Rogelio Martinez, Dr. Calvert, Dr. Khorrami to help with the management of the above-mentioned diagnoses and abnormalities. Amelie Rios M.D. DR: MAYANK JOB#: [id number] CC:
--- NOTE | 2019-05-13 02:22 | NUR ---
NURSE NOTES: Called MD DAVE. requested MD call back to ask for orders. pt is showing signs of anxiety, heart rate elevated to 130, other vital signs stable. awaiting call back.
[2019-05-13 04:00] VITALS: BP 132/81
[2019-05-13 05:50] LABS: BASOPHILS % (AUTO) 0.9 % (0.0-2.0); EOSINOPHILS % (AUTO) 1.3 % (0.0-3.0); HEMOGLOBIN 8.2 G/DL (12.0-16.0); LYMPHOCYTES % (AUTO) 15.7 % (20.0-45.0); MEAN CORPUSCULAR VOLUME 88 FL (80-99); MONOCYTES % (AUTO) 7.2 % (1.0-10.0); PLATELET COUNT 353 K/UL (150-450); RED BLOOD COUNT 2.84 M/UL (4.20-5.40); RED CELL DISTRIBUTION WIDTH 14.2 % (11.6-14.8); WHITE BLOOD COUNT 9.9 K/UL (4.8-10.8)
--- NOTE | 2019-05-13 07:00 | NUR ---
NURSE NOTES: inge from LAB/ CHEM is to redraw lab due to abnormal calcium.
--- NOTE | 2019-05-13 07:25 | NUR ---
NURSE NOTES: Received report from Leo Contreras RN. Patient is awake, verbally responsive, able to make needs known. On room air, no respiratory distress noted at this time. Left AC IV 20g intact and patent with IV fluids infusing at prescribed rate. Safety precautions in place, bed locked, alarmed, and in lowest position, side rails up x3, and call light left within reach. Instructed to call for assistance, verbalized understanding. Will continue to monitor and will continue plan of care.
--- NOTE | 2019-05-13 07:25 | NUR ---
HAND-OFF: Report given to WU Pandey RN. Pt remains stable.
--- NOTE | 2019-05-13 07:26 | NUR ---
NURSE NOTES: Urine collected and sent down to lab by Leo Contreras RN.
--- NOTE | 2019-05-13 07:50 | NUR ---
NURSE NOTES: Patient noted having SOB and restless.Dr Rios contacted for breathing treatment, received new orders. Will carry out.
--- NOTE | 2019-05-13 07:50 | NUR ---
NURSE NOTES: Patient appears restless and anxious at this time; Dr Ybarra contacted. Awaiting for call back/orders. Patient's HOB elevated, still SOB and restless. Reinforced teaching re: relaxation techniques; will continue to monitor patient.
[2019-05-13 08:00] VITALS: BP 165/105
[2019-05-13] MEDS: Pantoprazole Inj IVP SCH (08:09)
[2019-05-13] MEDS: Piperacillin/Tazobactam 3.375 GM in NS 110 ML IVPB SCH ×2 (08:10→16:20)
[2019-05-13] MEDS ORDERED: Albuterol/Ipratropium 3ml neb HHN PRN (08:15)
[2019-05-13] MEDS ORDERED: Morphine Sulfate 2mg/ml Inj(IV/IM USE ONLY) IVP SCH (09:00)
[2019-05-13] MEDS: Albuterol/Ipratropium 3ml neb HHN PRN (09:18)
--- NOTE | 2019-05-13 09:20 | NUR ---
NURSE NOTES: Dr Rios at bedside, notified and made aware of patient's SOB and restlessness. No new orders received at this time. Will continue to monitor.
--- NOTE | 2019-05-13 09:21 | NUR ---
NURSE NOTES: RT at bedside for breathing treatment. Patient remains on Venturi Mask 12L, 50% FiO2.
--- NOTE | 2019-05-13 09:23 | Infectious Diseases Prog Note ---
Assessment/Plan Assessment/Plan IMPRESSION: Pyuria, UTI. Resolved leukocytosis, Acute renal failure. Has diabetes mellitus, hypertension, COPD, anemia. RECOMMENDATION: Continue Zosyn. So far cultures are negative Repeat CXR Subjective ROS Limited/Unobtainable: Yes Constitutional: Reports: other - feels she is dying Respiratory: Reports: shortness of breath Cardiovascular: Denies: chest pain Allergies: Coded Allergies: No Known Allergies (Unverified , 11/08/15) Objective Vital Signs Last 24 Hour Vital Signs Date Time Temp Pulse Resp B/P (MAP) Pulse Ox O2 Delivery O2 Flow Rate FiO2 05/13/19 09:13 123 20 92 Nasal Cannula 3.0 32 135 28 90 05/13/19 08:00 Venturi Mask 05/13/19 04:00 Room Air 05/13/19 04:00 101 05/13/19 04:00 97.3 90 20 132/81 (98) 99 05/13/19 00:00 Room Air 05/13/19 00:00 97.7 80 20 127/73 (91) 100 05/13/19 00:00 93 05/12/19 20:00 86 05/12/19 20:00 Room Air 05/12/19 20:00 98.9 85 20 114/57 (76) 99 05/12/19 16:00 Room Air 05/12/19 16:00 97.4 88 18 108/62 (77) 99 05/12/19 15:14 85 05/12/19 12:06 86 05/12/19 12:00 98.4 90 18 94/52 (66) 96 05/12/19 12:00 Room Air Height (Feet): 5 Height (Inches): 1.00 Weight (Pounds): 120 HEENT: mucous membranes moist Respiratory/Chest: crackles/rales Cardiovascular: tachycardia Abdomen: soft, non tender Extremities: no edema Neurologic/Psychiatric: alert, responsive, other - tremor Microbiology Date/Time Source Procedure Growth Status 05/12/19 00:50 Blood Blood Culture - Preliminary NO GROWTH AFTER 24 HOURS Resulted 05/12/19 00:35 Blood Blood Culture - Preliminary NO GROWTH AFTER 24 HOURS Resulted 05/12/19 02:45 Urine,Clean Catch Urine Culture - Preliminary NO GROWTH Resulted 05/12/19 06:40 Rectum Received Laboratory Tests Test 1/29/20 10:05 05/12/19 15:55 05/12/19 22:20 05/13/19 04:48 Lactic Acid Level 3.30 mmol/L (0.66-2.22) H 3.80 mmol/L (0.4-2.0) H 2.00 mmol/L (0.4-2.0) White Blood Count 9.9 K/UL (4.8-10.8) Red Blood Count 2.84 M/UL (4.20-5.40) L Hemoglobin 8.2 G/DL (12.0-16.0) L Hematocrit 25.0 % (37.0-47.0) L Mean Corpuscular Volume 88 FL (80-99) Mean Corpuscular Hemoglobin 28.8 PG (27.0-31.0) Mean Corpuscular Hemoglobin Concent 32.7 G/DL (32.0-36.0) Red Cell Distribution Width 14.2 % (11.6-14.8) Platelet Count 353 K/UL (150-450) Mean Platelet Volume 5.2 FL (6.5-10.1) L Neutrophils (%) (Auto) 75.0 % (45.0-75.0) Lymphocytes (%) (Auto) 15.7 % (20.0-45.0) L Monocytes (%) (Auto) 7.2 % (1.0-10.0) Eosinophils (%) (Auto) 1.3 % (0.0-3.0) Basophils (%) (Auto) 0.9 % (0.0-2.0) Sodium Level Pending Potassium Level Pending Chloride Level Pending Carbon Dioxide Level Pending Blood Urea Nitrogen Pending Creatinine Pending Estimat Glomerular Filtration Rate Pending Glucose Level Pending Hemoglobin A1c 7.1 % (4.3-6.0) H Calcium Level Pending Iron Level Pending Unsaturated Iron Binding Pending Total Bilirubin Pending Aspartate Amino Transf (AST/SGOT) Pending Alanine Aminotransferase (ALT/SGPT) Pending Alkaline Phosphatase Pending Troponin I 0.037 ng/mL (0.000-0.056) Total Protein Pending Albumin Pending Globulin Pending Triglycerides Level Pending Cholesterol Level Pending LDL Cholesterol Pending HDL Cholesterol Pending Cholesterol/HDL Ratio Pending Cortisol AM Sample Pending Test 05/13/19 07:10 05/13/19 08:30 Urine Eosinophils None seen (NONE SEEN) Urine Random Sodium 85 mmol/L (20-110) Sodium Level Pending Potassium Level Pending Chloride Level Pending Carbon Dioxide Level Pending Blood Urea Nitrogen Pending Creatinine Pending Estimat Glomerular Filtration Rate Pending Glucose Level Pending Uric Acid Pending Calcium Level Pending Phosphorus Level Pending Magnesium Level Pending Iron Level Pending Unsaturated Iron Binding Pending Ferritin Pending Total Bilirubin Pending Gamma Glutamyl Transpeptidase Pending Aspartate Amino Transf (AST/SGOT) Pending Alanine Aminotransferase (ALT/SGPT) Pending Alkaline Phosphatase Pending C-Reactive Protein, Quantitative Pending Pro-B-Type Natriuretic Peptide Pending Total Protein Pending Albumin Pending Globulin Pending Triglycerides Level Pending Cholesterol Level Pending LDL Cholesterol Pending HDL Cholesterol Pending Cholesterol/HDL Ratio Pending Vitamin B12 Level Pending Folate Pending Thyroid Stimulating Hormone (TSH) Pending Current Medications Medications (Trade) Dose Ordered Sig/Tenzin Route PRN Reason Start Time Stop Time Status Last Admin Dose Admin Albuterol/ Ipratropium (Albuterol/ Ipratropium) 3 ml Q4H PRN HHN Shortness of Breath 05/13/19 09:00 05/18/19 08:59 Albuterol/ Ipratropium (Albuterol/ Ipratropium) 3 ml Q4HRT HHN 05/13/19 11:00 05/18/19 10:59 Morphine Sulfate (Morphine Sulfate) 1 mg ONCE IVP 05/13/19 09:00 05/13/19 10:30 05/13/19 09:02 Ondansetron HCl (Zofran) 4 mg Q6H PRN IVP Nausea & Vomiting 05/12/19 09:45 06/11/19 09:44 Pantoprazole (Protonix) 40 mg EVERY 12 HOURS IVP 05/12/19 21:00 06/11/19 20:59 05/13/19 08:09 Piperacillin Sod/ Tazobactam Sod 3.375 gm/Sodium Chloride 110 ml @ 27.5 mls/hr Q8H IVPB 05/12/19 16:00 05/19/19 15:59 05/13/19 08:10 Sodium Chloride 550 ml @ 0 mls/hr Q0M IV 05/12/19 14:00 06/11/19 13:59 Rogelio Martinez MD May 13, 2019 09:23
--- NOTE | 2019-05-13 09:51 | Pulmonology Progress Note ---
Assessment/Plan Assessment/Plan Pulmonary Consultation HPI: The patient is a 68 year old woman, Assisted resident with past medical history of Parkinsons Disease, focal weakness, Diabetes, Mood Disorder, Seizure History, Hyperlipidemia, Constipation admitted with UTI/sepsis, noted to be hypotensive on admission, have significantly elevated Lactic Acid Levels, Positive Urine Ketones, Acute Renal Insufficiency, Anemia. 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 No rectal bleeding noted. 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 Admission EKG note LA enlargement, worsening SOB since admission despite use HHN. BP improved with IV fluids PAST MEDICAL HISTORY: Parkinsons Disease, focal weakness, Diabetes, Mood Disorder, Seizure History, Hyperlipidemia, Constipation, Anemia PAST SURGICAL HISTORY: Tubal ligation. SOCIAL HISTORY: No history of smoking. Denies history of drug or alcohol abuse. ALLERGIES: No known allergies. 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 On antibiotics per ID, HHN, O2 PRN, ISS FAMILY HISTORY: Noncontributory. REVIEW OF SYSTEMS: Negative aside from above PHYSICAL EXAMINATION: VITAL SIGNS NOTED HEENT: NCAT, moist mm. NECK: No lymphadenopathy, no masses CHEST: Basal crackles, occasional rhonchi. CARDIOVASCULAR: Regular rate and rhythm. No murmurs or extra sounds. GASTROINTESTINAL: Soft, nontender, nondistended. No organomegaly. EXTREMITIES: Mild edema. 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, tremor, right arm weaker than left, no seizures, sensation intact ASSESSMENT: Sepsis, vomiting, and diarrhea UTI, possible Pneumonia Constipation Parkinsons Disease Previous h/o focal weakness Diabetes Anemia Mood Disorder Seizure History Hyperlipidemia PLAN: - Diurese PRN - Reduce IVF - HHN - O2 PRN - Echocardiogram - PPX - Antibiotics per ID - [employer] TECHNICIAN Medications - Lantus/ISS given hyperglycemia, Increased AG and Ketones - BiPAP PRN and QHS - ST evaluation of swallow - Monitor labs/ABG PRN EKG: LA enlargement CXR: No acute disease initially, currently: extensive bilateral interstitial and airspace disease, likely pneumonia although edema also possibility. Suspect small left and possible trace right pleural effusions KUB: Normal LE Dupplex: Negative BC : Negative UA: Positive for UTI NPA: >2400 Subjective ROS Limited/Unobtainable: No Allergies: Coded Allergies: No Known Allergies (Unverified , 11/08/15) Objective Last 24 Hour Vital Signs Date Time Temp Pulse Resp B/P (MAP) Pulse Ox O2 Delivery O2 Flow Rate FiO2 05/13/19 09:13 123 20 92 Nasal Cannula 3.0 32 135 28 90 05/13/19 08:00 Venturi Mask 05/13/19 08:00 97.3 122 20 165/105 (125) 96 05/13/19 04:00 Room Air 05/13/19 04:00 101 05/13/19 04:00 97.3 90 20 132/81 (98) 99 05/13/19 00:00 Room Air 05/13/19 00:00 97.7 80 20 127/73 (91) 100 05/13/19 00:00 93 05/12/19 20:00 86 05/12/19 20:00 Room Air 05/12/19 20:00 98.9 85 20 114/57 (76) 99 05/12/19 16:00 Room Air 05/12/19 16:00 97.4 88 18 108/62 (77) 99 05/12/19 15:14 85 05/12/19 12:06 86 05/12/19 12:00 98.4 90 18 94/52 (66) 96 05/12/19 12:00 Room Air Intake and Output 05/12/19 05/13/19 19:00 07:00 Intake Total 906.875 ml 935.0 ml Output Total 300 ml 400 ml Balance 606.875 ml 535.0 ml Intake Oral 500 ml IV Total 406.875 ml 935.0 ml Output Urine Total 300 ml 400 ml # Voids 3 Microbiology Date/Time Source Procedure Growth Status 05/12/19 00:50 Blood Blood Culture - Preliminary NO GROWTH AFTER 24 HOURS Resulted 05/12/19 00:35 Blood Blood Culture - Preliminary NO GROWTH AFTER 24 HOURS Resulted 05/12/19 02:45 Urine,Clean Catch Urine Culture - Preliminary NO GROWTH Resulted 05/12/19 06:40 Rectum Received Laboratory Tests 05/12/19 10:05: Lactic Acid Level 3.30H 05/12/19 15:55: Lactic Acid Level 3.80H 05/12/19 22:20: Lactic Acid Level 2.00 1/30/20 04:48: White Blood Count 9.9, Red Blood Count 2.84L, Hemoglobin 8.2L, Hematocrit 25.0L , Mean Corpuscular Volume 88, Mean Corpuscular Hemoglobin 28.8, Mean Corpuscular Hemoglobin Concent 32.7, Red Cell Distribution Width 14.2, Platelet Count 353, Mean Platelet Volume 5.2L, Neutrophils (%) (Auto) 75.0, Lymphocytes ( %) (Auto) 15.7L, Monocytes (%) (Auto) 7.2, Eosinophils (%) (Auto) 1.3, Basophils (%) (Auto) 0.9, Sodium Level [Pending], Potassium Level [Pending], Chloride Level [Pending], Carbon Dioxide Level [Pending], Blood Urea Nitrogen [ Pending], Creatinine [Pending], Estimat Glomerular Filtration Rate [Pending], Glucose Level [Pending], Hemoglobin A1c 7.1H, Calcium Level [Pending], Iron Level [Pending], Unsaturated Iron Binding [Pending], Total Bilirubin [Pending], Aspartate Amino Transf (AST/SGOT) [Pending], Alanine Aminotransferase (ALT/SGPT ) [Pending], Alkaline Phosphatase [Pending], Troponin I 0.037, Total Protein [ Pending], Albumin [Pending], Globulin [Pending], Triglycerides Level [Pending], Cholesterol Level [Pending], LDL Cholesterol [Pending], HDL Cholesterol [Pending ], Cholesterol/HDL Ratio [Pending], Cortisol AM Sample [Pending] 05/13/19 07:10: Urine Eosinophils None seen, Urine Random Sodium 85 05/13/19 08:30: Sodium Level [Pending], Potassium Level [Pending], Chloride Level [Pending], Carbon Dioxide Level [Pending], Blood Urea Nitrogen [Pending], Creatinine [ Pending], Estimat Glomerular Filtration Rate [Pending], Glucose Level [Pending] , Uric Acid [Pending], Calcium Level [Pending], Phosphorus Level [Pending], Magnesium Level [Pending], Iron Level [Pending], Unsaturated Iron Binding [ Pending], Ferritin [Pending], Total Bilirubin [Pending], Gamma Glutamyl Transpeptidase [Pending], Aspartate Amino Transf (AST/SGOT) [Pending], Alanine Aminotransferase (ALT/SGPT) [Pending], Alkaline Phosphatase [Pending], C- Reactive Protein, Quantitative [Pending], Pro-B-Type Natriuretic Peptide [ Pending], Total Protein [Pending], Albumin [Pending], Globulin [Pending], Triglycerides Level [Pending], Cholesterol Level [Pending], LDL Cholesterol [ Pending], HDL Cholesterol [Pending], Cholesterol/HDL Ratio [Pending], Vitamin B12 Level [Pending], Folate [Pending], Thyroid Stimulating Hormone (TSH) [ Pending] Current Medications Medications (Trade) Dose Ordered Sig/Etnzin Route PRN Reason Start Time Stop Time Status Last Admin Dose Admin Albuterol/ Ipratropium (Albuterol/ Ipratropium) 3 ml Q4H PRN HHN Shortness of Breath 05/13/19 09:00 05/18/19 08:59 05/13/19 09:18 Albuterol/ Ipratropium (Albuterol/ Ipratropium) 3 ml Q4HRT HHN 05/13/19 11:00 05/18/19 10:59 Morphine Sulfate (Morphine Sulfate) 1 mg ONCE IVP 05/13/19 09:00 05/13/19 10:30 05/13/19 09:02 Morphine Sulfate (Morphine Sulfate) 1 mg Q6H PRN IVP For Pain 05/13/19 09:30 05/20/19 09:29 Ondansetron HCl (Zofran) 4 mg Q6H PRN IVP Nausea & Vomiting 05/12/19 09:45 06/11/19 09:44 Pantoprazole (Protonix) 40 mg EVERY 12 HOURS IVP 05/12/19 21:00 06/11/19 20:59 05/13/19 08:09 Piperacillin Sod/ Tazobactam Sod 3.375 gm/Sodium Chloride 110 ml @ 27.5 mls/hr Q8H IVPB 05/12/19 16:00 05/19/19 15:59 05/13/19 08:10 Sodium Chloride 550 ml @ 0 mls/hr Q0M IV 05/12/19 14:00 06/11/19 13:59 Walker Blank MD May 13, 2019 09:51
[2019-05-13 09:53] LABS: ANION GAP 15 mmol/L (5-15); BLOOD UREA NITROGEN 17 mg/dL (7-18); CARBON DIOXIDE 19 MMOL/L (21-32); CHLORIDE 110 MMOL/L (98-107); CREATININE 1.2 MG/DL (0.55-1.30); POTASSIUM 3.9 MMOL/L (3.5-5.1); SODIUM 144 MMOL/L (136-145)
[2019-05-13 09:54] LABS: CALCIUM 7.1 MG/DL (8.5-10.1)
[2019-05-13 10:07] LABS: ALANINE AMINOTRANSFERASE 35 U/L (12-78); ALBUMIN 2.5 G/DL (3.4-5.0); ALBUMIN/GLOBULIN RATIO 0.7 (1.0-2.7); ALKALINE PHOSPHATASE 55 U/L (46-116); ASPARTATE AMINO TRANSFERASE 30 U/L (15-37); BILIRUBIN,TOTAL < 0.1 MG/DL (0.2-1.0); CHOLESTEROL 110 MG/DL (< 200); FERRITIN 20 NG/ML (8-388); GAMMA GLUTAMYL TRANSPEPTIDASE 30 U/L (5-85); HDL CHOLESTEROL 48 MG/DL (40-60); PHOSPHORUS 3.9 MG/DL (2.5-4.9); TRIGLYCERIDES 89 MG/DL (30-150)
--- NOTE | 2019-05-13 10:21 | Nephrology Progress Note ---
Assessment/Plan Problem List: (1) Azotemia (2) Type 2 diabetes mellitus (3) Elevated lactic acid level (4) COPD exacerbation Assessment Renal failure COPD Acute- dehydration , ? CKD underlying UTI , High Lactic HyperKalemia DM Anemia DNR Plan ABG 2D echo DC Hydrate- Lasix one dose Pulm toilet Anemia castro PO protonix Monitor renal parameters Subjective ROS Limited/Unobtainable: No Constitutional: Reports: malaise, weakness Objective Objective Last 24 Hour Vital Signs Date Time Temp Pulse Resp B/P (MAP) Pulse Ox O2 Delivery O2 Flow Rate FiO2 05/13/19 09:13 123 20 92 Nasal Cannula 3.0 32 135 28 90 05/13/19 08:00 Venturi Mask 05/13/19 08:00 97.3 122 20 165/105 (125) 96 05/13/19 07:48 110 05/13/19 04:00 Room Air 05/13/19 04:00 101 05/13/19 04:00 97.3 90 20 132/81 (98) 99 05/13/19 00:00 Room Air 05/13/19 00:00 97.7 80 20 127/73 (91) 100 05/13/19 00:00 93 05/12/19 20:00 86 05/12/19 20:00 Room Air 05/12/19 20:00 98.9 85 20 114/57 (76) 99 05/12/19 16:00 Room Air 05/12/19 16:00 97.4 88 18 108/62 (77) 99 05/12/19 15:14 85 05/12/19 12:06 86 05/12/19 12:00 98.4 90 18 94/52 (66) 96 05/12/19 12:00 Room Air Intake and Output 05/12/19 05/13/19 19:00 07:00 Intake Total 906.875 ml 935.0 ml Output Total 300 ml 400 ml Balance 606.875 ml 535.0 ml Intake Oral 500 ml IV Total 406.875 ml 935.0 ml Output Urine Total 300 ml 400 ml # Voids 3 Laboratory Tests 05/12/19 15:55: Lactic Acid Level 3.80H 05/12/19 22:20: Lactic Acid Level 2.00 05/13/19 04:48: White Blood Count 9.9, Red Blood Count 2.84L, Hemoglobin 8.2L, Hematocrit 25.0L , Mean Corpuscular Volume 88, Mean Corpuscular Hemoglobin 28.8, Mean Corpuscular Hemoglobin Concent 32.7, Red Cell Distribution Width 14.2, Platelet Count 353, Mean Platelet Volume 5.2L, Neutrophils (%) (Auto) 75.0, Lymphocytes ( %) (Auto) 15.7L, Monocytes (%) (Auto) 7.2, Eosinophils (%) (Auto) 1.3, Basophils (%) (Auto) 0.9, Sodium Level [Pending], Potassium Level [Pending], Chloride Level [Pending], Carbon Dioxide Level [Pending], Blood Urea Nitrogen [ Pending], Creatinine [Pending], Estimat Glomerular Filtration Rate [Pending], Glucose Level [Pending], Hemoglobin A1c 7.1H, Calcium Level [Pending], Iron Level [Pending], Unsaturated Iron Binding [Pending], Total Bilirubin [Pending], Aspartate Amino Transf (AST/SGOT) [Pending], Alanine Aminotransferase (ALT/SGPT ) [Pending], Alkaline Phosphatase [Pending], Troponin I 0.037, Total Protein [ Pending], Albumin [Pending], Globulin [Pending], Triglycerides Level [Pending], Cholesterol Level [Pending], LDL Cholesterol [Pending], HDL Cholesterol [Pending ], Cholesterol/HDL Ratio [Pending], Cortisol AM Sample [Pending] 05/13/19 07:10: Urine Eosinophils None seen, Urine Random Sodium 85 05/13/19 08:30: Sodium Level 144, Potassium Level 3.9, Chloride Level 110H, Carbon Dioxide Level 19L, Anion Gap 15, Blood Urea Nitrogen 17, Creatinine 1.2, Estimat Glomerular Filtration Rate 44.7, Glucose Level 401#H, Uric Acid 5.9, Calcium Level 7.1#L, Phosphorus Level 3.9, Magnesium Level 1.6L, Iron Level [Pending], Unsaturated Iron Binding [Pending], Ferritin 20, Total Bilirubin < 0.1L, Gamma Glutamyl Transpeptidase 30, Aspartate Amino Transf (AST/SGOT) 30, Alanine Aminotransferase (ALT/SGPT) 35, Alkaline Phosphatase 55, C-Reactive Protein, Quantitative 0.5, Pro-B-Type Natriuretic Peptide 5424H, Total Protein 6.3L, Albumin 2.5L, Globulin 3.8, Albumin/Globulin Ratio 0.7L, Triglycerides Level 89 , Cholesterol Level 110, LDL Cholesterol 48, HDL Cholesterol 48, Cholesterol/ HDL Ratio 2.3L, Vitamin B12 Level [Pending], Folate [Pending], Thyroid Stimulating Hormone (TSH) 1.697 Height (Feet): 5 Height (Inches): 1.00 Weight (Pounds): 120 General Appearance: mild distress Cardiovascular: tachycardia Respiratory/Chest: decreased breath sounds Abdomen: soft José Miguel Calvert MD May 13, 2019 10:21
[2019-05-13 10:29] LABS: % IRON SATURATION 4 % (15-50); IRON 15 ug/dL (50-175); TOTAL IRON BINDING CAPACITY 368 ug/dL (250-450)
[2019-05-13] MEDS: Albuterol/Ipratropium 3ml neb HHN SCH ×4 (10:57→23:18)
[2019-05-13] MEDS: Nateglinide 60mg tab ORAL SCH ×2 (11:45→16:32)
[2019-05-13 12:00] VITALS: BP 142/63
--- NOTE | 2019-05-13 12:47 | Diagnostic Imaging Report ---
Indication: Shortness of breath Technique: One view of the chest Comparison: 05/11/2019 Findings: Interim development of extensive interstitial and airspace consolidation bilaterally, with particularly dense consolidation in the inferior right upper lobe and right lower lobe. There is probably some pleural fluid on the left and possibly trace pleural fluid on the right. The heart size is normal. Impression: Extensive bilateral interstitial and airspace disease, likely pneumonia although edema also possibility. Suspect small left and possible trace right pleural effusions
--- NOTE | 2019-05-13 12:48 | NUR ---
CASE MANAGEMENT:INITIAL REVIEW 68 YR OLD FEMALE BIBA FROM [facility] CC;VOMITING IS;SEPSIS. ELEVATED LAC ACID. ANEMA. UTI. RENAL INSUFFICIENCY. DM. 98.4 102 22 94/51 98% 3L NC FIO2 @ 98% WBC 18.9 H/H 9.6/29.8 BG 401 CA 7.1 BNP 5424 CXR - NEGATIVE ABD XRAY - NEGATIVE IS;REGLAN IV X1 PEPCID IV X1 BENADRYL IV X1 IVF NS BOLUS X1 ADMITTED TO SDU SDU STATUS DCP;FROM [facility]
--- NOTE | 2019-05-13 13:00 | NUR ---
NURSE NOTES: Dr Blank at bedside. No new orders received at this time, will continue to monitor patient.
--- NOTE | 2019-05-13 13:34 | NUR ---
RADIOLOGY DEPT., CHEST X-RAY DONE.-P.DYE
--- NOTE | 2019-05-13 14:55 | NUR ---
CARDIOLOGY: 2-D ECHO Technically difficult study due to poor acoustical windows. Normal left ventricular chamber size, systolic function and wall motion to extent visualized. Left ventricular ejection fraction estimated to be 55-60%. No evidence of left ventricular hypertrophy . No evidence of pericardial effusion . Mild left atrial enlargement . Right cardiac chamber sizes are within normal limits. Focal aortic valve sclerosis with reduced cusp excursion. Heavy thickened mitral valve leaflets with normal excursion. Mitral annulus and aortic root calcification. Normal pulmonic valve structure. Normal tricuspid valve structure. IVC at normal size with physiologic collapse. A color flow and spectral Doppler study was performed and revealed: Aortic regurgitation. Peak mitral valve gradient of 15 mm Hg and a mean of 7 mmHg. Moderate mitral regurgitation. Mitral diastolic velocities suggest reduced left ventricular relaxation c/w mild LV diastolic dysfunction (Grade I ) Mild tricuspid regurgitation. Tricuspid systolic velocities suggests peak right ventricular systolic pressure of 123mmHg,consistent with severe pulmonary hypertension.
--- NOTE | 2019-05-13 14:58 | NUR ---
NURSE NOTES: Dr Blank at bedside. Addendum: 05/13/19 at 1500 by Kira Duncan RN Please disregard above charting, entered time in error.
[2019-05-13] MEDS ORDERED: NS 275ml ONE (15:00)
[2019-05-13] MEDS ORDERED: Tubing IV Secondary IV ONE (15:00)
[2019-05-13 16:00] VITALS: BP 121/80
--- NOTE | 2019-05-13 19:10 | NUR ---
HAND-OFF: Report given to Kareen Eisenberg RN. Endorsed plan of care. Patient in stable condition.
--- NOTE | 2019-05-13 19:14 | General Progress Note ---
Assessment/Plan Assessment/Plan: Assessment - N/V - improved - Sepsis - improved - lactic acidosis - improved - Renal failure Recommendations - Abx - IVF - Clear liq - advance - follow labs - Check OB - consider CT and/pelvis Subjective Allergies: Coded Allergies: No Known Allergies (Unverified , 11/08/15) Subjective Feels OK no abdominal complaints Objective Last 24 Hour Vital Signs Date Time Temp Pulse Resp B/P (MAP) Pulse Ox O2 Delivery O2 Flow Rate FiO2 05/13/19 16:00 97.8 100 20 121/80 (94) 95 05/13/19 16:00 Venturi Mask 12.0 05/13/19 15:26 104 05/13/19 14:31 96 20 97 Venturi Mask 14.0 55 95 20 95 05/13/19 12:00 97.7 108 20 142/63 (89) 95 05/13/19 12:00 Venturi Mask 05/13/19 11:50 117 05/13/19 10:52 116 24 94 Venturi Mask 14.0 55 114 24 91 05/13/19 09:13 123 20 92 Venturi Mask 15.0 55 135 28 90 05/13/19 08:00 Venturi Mask 05/13/19 08:00 97.3 122 20 165/105 (125) 96 05/13/19 07:48 110 05/13/19 04:00 Room Air 05/13/19 04:00 101 05/13/19 04:00 97.3 90 20 132/81 (98) 99 05/13/19 00:00 Room Air 05/13/19 00:00 97.7 80 20 127/73 (91) 100 05/13/19 00:00 93 05/12/19 20:00 86 05/12/19 20:00 Room Air 05/12/19 20:00 98.9 85 20 114/57 (76) 99 Intake and Output 05/12/19 05/13/19 19:00 07:00 Intake Total 906.875 ml 935.0 ml Output Total 300 ml 400 ml Balance 606.875 ml 535.0 ml Intake Oral 500 ml IV Total 406.875 ml 935.0 ml Output Urine Total 300 ml 400 ml # Voids 3 Laboratory Tests 05/12/19 22:20: Lactic Acid Level 2.00 05/13/19 04:48: White Blood Count 9.9, Red Blood Count 2.84L, Hemoglobin 8.2L, Hematocrit 25.0L , Mean Corpuscular Volume 88, Mean Corpuscular Hemoglobin 28.8, Mean Corpuscular Hemoglobin Concent 32.7, Red Cell Distribution Width 14.2, Platelet Count 353, Mean Platelet Volume 5.2L, Neutrophils (%) (Auto) 75.0, Lymphocytes ( %) (Auto) 15.7L, Monocytes (%) (Auto) 7.2, Eosinophils (%) (Auto) 1.3, Basophils (%) (Auto) 0.9, Sodium Level [Pending], Potassium Level [Pending], Chloride Level [Pending], Carbon Dioxide Level [Pending], Blood Urea Nitrogen [ Pending], Creatinine [Pending], Estimat Glomerular Filtration Rate [Pending], Glucose Level [Pending], Hemoglobin A1c 7.1H, Calcium Level [Pending], Iron Level [Pending], Unsaturated Iron Binding [Pending], Total Bilirubin [Pending], Aspartate Amino Transf (AST/SGOT) [Pending], Alanine Aminotransferase (ALT/SGPT ) [Pending], Alkaline Phosphatase [Pending], Troponin I 0.037, Total Protein [ Pending], Albumin [Pending], Globulin [Pending], Triglycerides Level [Pending], Cholesterol Level [Pending], LDL Cholesterol [Pending], HDL Cholesterol [Pending ], Cholesterol/HDL Ratio [Pending], Cortisol AM Sample 17.4 05/13/19 07:10: Urine Eosinophils None seen, Urine Random Sodium 85 05/13/19 08:30: Sodium Level 144, Potassium Level 3.9, Chloride Level 110H, Carbon Dioxide Level 19L, Blood Urea Nitrogen 17, Creatinine 1.2, Estimat Glomerular Filtration Rate 44.7, Glucose Level 401#H, Calcium Level 7.1#L, Iron Level 15L, Unsaturated Iron Binding 353H, Total Bilirubin < 0.1L, Aspartate Amino Transf ( AST/SGOT) 30, Alanine Aminotransferase (ALT/SGPT) 35, Alkaline Phosphatase 55, Total Protein 6.3L, Albumin 2.5L, Globulin 3.8, Triglycerides Level 89, Cholesterol Level 110, LDL Cholesterol 48, HDL Cholesterol 48, Cholesterol/HDL Ratio 2.3L, Anion Gap 15, Uric Acid 5.9, Phosphorus Level 3.9, Magnesium Level 1.6L, Total Iron Binding Capacity 368, Percent Iron Saturation 4L, Ferritin 20, Gamma Glutamyl Transpeptidase 30, C-Reactive Protein, Quantitative 0.5, Pro-B- Type Natriuretic Peptide 5424H, Albumin/Globulin Ratio 0.7L, Vitamin B12 Level 604, Folate 16.9, Thyroid Stimulating Hormone (TSH) 1.697 05/13/19 10:13: Arterial Blood pH 7.226*L, Arterial Blood Partial Pressure CO2 39.9, Arterial Blood Partial Pressure O2 57.6L, Arterial Blood HCO3 16.2*L, Arterial Blood Oxygen Saturation 83.9*L, Arterial Blood Base Excess -10.6*L, Mando Test Positive Height (Feet): 5 Height (Inches): 1.00 Weight (Pounds): 120 Objective WDWN AA woman NCAT supple CTA RR abd soft NT ND no edema Sangeeta Bianchi MD May 13, 2019 19:14
--- NOTE | 2019-05-13 19:15 | NUR ---
NURSE NOTES: Received report from [facility] RN using SBAR. Patient is awake, able to communicate. on Venturi mask 12L with no SOB. O2 saturation is 98-100%. vs stable. Afebrile. SR on the skull grinder. Denies any pain or discomfort at this time. call light within reach. Bed in lowest position and alarm is on. will continue to monitor.
[2019-05-13 20:00] VITALS: BP 149/81
--- NOTE | 2019-05-13 21:38 | General Progress Note ---
Assessment/Plan Problem List: (1) Constipation ICD Codes: K59.00 - Constipation, unspecified SNOMED: 42157594 (2) Renal insufficiency ICD Codes: N28.9 - Disorder of kidney and ureter, unspecified SNOMED: 771741259, 393045140 (3) COPD exacerbation ICD Codes: J44.1 - Chronic obstructive pulmonary disease with (acute) exacerbation SNOMED: 090049879 (4) UTI (urinary tract infection) ICD Codes: N39.0 - Urinary tract infection, site not specified SNOMED: 97984754 Qualifiers: Qualified Codes: N39.0 - Urinary tract infection, site not specified (5) Hyperlipidemia associated with type 2 diabetes mellitus ICD Codes: E11.69 - Type 2 diabetes mellitus with other specified complication ; E78.5 - Hyperlipidemia, unspecified SNOMED: 450166787, 014651580666 (6) Type 2 diabetes mellitus ICD Codes: E11.9 - Type 2 diabetes mellitus without complications SNOMED: 71895841, 462029355 Qualifiers: Qualified Codes: E11.9 - Type 2 diabetes mellitus without complications (7) Azotemia ICD Codes: R79.89 - Other specified abnormal findings of blood chemistry SNOMED: 407344134 (8) Cholelithiasis ICD Codes: K80.20 - Calculus of gallbladder without cholecystitis without obstruction SNOMED: 097561637 Status: progressing Assessment/Plan: copd pna consulted pulmonary resp insfuff afebrile nac niddm psych Subjective ROS Limited/Unobtainable: Yes Allergies: Coded Allergies: No Known Allergies (Unverified , 11/08/15) Objective Last 24 Hour Vital Signs Date Time Temp Pulse Resp B/P (MAP) Pulse Ox O2 Delivery O2 Flow Rate FiO2 05/13/19 20:00 98.2 87 20 149/81 (103) 96 05/13/19 19:51 96 Venturi Mask 14.0 55 05/13/19 19:48 105 20 99 Venturi Mask 14.0 55 107 20 96 05/13/19 19:43 102 05/13/19 16:00 97.8 100 20 121/80 (94) 95 05/13/19 16:00 Venturi Mask 12.0 05/13/19 15:26 104 05/13/19 14:31 96 20 97 Venturi Mask 14.0 55 95 20 95 05/13/19 12:00 97.7 108 20 142/63 (89) 95 05/13/19 12:00 Venturi Mask 05/13/19 11:50 117 05/13/19 10:52 116 24 94 Venturi Mask 14.0 55 114 24 91 05/13/19 09:13 123 20 92 Venturi Mask 15.0 55 135 28 90 05/13/19 08:00 Venturi Mask 05/13/19 08:00 97.3 122 20 165/105 (125) 96 05/13/19 07:48 110 05/13/19 04:00 Room Air 05/13/19 04:00 101 05/13/19 04:00 97.3 90 20 132/81 (98) 99 05/13/19 00:00 Room Air 05/13/19 00:00 97.7 80 20 127/73 (91) 100 05/13/19 00:00 93 Intake and Output 05/12/19 05/13/19 19:00 07:00 Intake Total 906.875 ml 935.0 ml Output Total 300 ml 400 ml Balance 606.875 ml 535.0 ml Intake Oral 500 ml IV Total 406.875 ml 935.0 ml Output Urine Total 300 ml 400 ml # Voids 3 Laboratory Tests 05/12/19 22:20: Lactic Acid Level 2.00 05/13/19 04:48: White Blood Count 9.9, Red Blood Count 2.84L, Hemoglobin 8.2L, Hematocrit 25.0L , Mean Corpuscular Volume 88, Mean Corpuscular Hemoglobin 28.8, Mean Corpuscular Hemoglobin Concent 32.7, Red Cell Distribution Width 14.2, Platelet Count 353, Mean Platelet Volume 5.2L, Neutrophils (%) (Auto) 75.0, Lymphocytes ( %) (Auto) 15.7L, Monocytes (%) (Auto) 7.2, Eosinophils (%) (Auto) 1.3, Basophils (%) (Auto) 0.9, Sodium Level [Pending], Potassium Level [Pending], Chloride Level [Pending], Carbon Dioxide Level [Pending], Blood Urea Nitrogen [ Pending], Creatinine [Pending], Estimat Glomerular Filtration Rate [Pending], Glucose Level [Pending], Hemoglobin A1c 7.1H, Calcium Level [Pending], Iron Level [Pending], Unsaturated Iron Binding [Pending], Total Bilirubin [Pending], Aspartate Amino Transf (AST/SGOT) [Pending], Alanine Aminotransferase (ALT/SGPT ) [Pending], Alkaline Phosphatase [Pending], Troponin I 0.037, Total Protein [ Pending], Albumin [Pending], Globulin [Pending], Triglycerides Level [Pending], Cholesterol Level [Pending], LDL Cholesterol [Pending], HDL Cholesterol [Pending ], Cholesterol/HDL Ratio [Pending], Cortisol AM Sample 17.4 05/13/19 07:10: Urine Eosinophils None seen, Urine Random Sodium 85 05/13/19 08:30: Sodium Level 144, Potassium Level 3.9, Chloride Level 110H, Carbon Dioxide Level 19L, Blood Urea Nitrogen 17, Creatinine 1.2, Estimat Glomerular Filtration Rate 44.7, Glucose Level 401#H, Calcium Level 7.1#L, Iron Level 15L, Unsaturated Iron Binding 353H, Total Bilirubin < 0.1L, Aspartate Amino Transf ( AST/SGOT) 30, Alanine Aminotransferase (ALT/SGPT) 35, Alkaline Phosphatase 55, Total Protein 6.3L, Albumin 2.5L, Globulin 3.8, Triglycerides Level 89, Cholesterol Level 110, LDL Cholesterol 48, HDL Cholesterol 48, Cholesterol/HDL Ratio 2.3L, Anion Gap 15, Uric Acid 5.9, Phosphorus Level 3.9, Magnesium Level 1.6L, Total Iron Binding Capacity 368, Percent Iron Saturation 4L, Ferritin 20, Gamma Glutamyl Transpeptidase 30, C-Reactive Protein, Quantitative 0.5, Pro-B- Type Natriuretic Peptide 5424H, Albumin/Globulin Ratio 0.7L, Vitamin B12 Level 604, Folate 16.9, Thyroid Stimulating Hormone (TSH) 1.697 05/13/19 10:13: Arterial Blood pH 7.226*L, Arterial Blood Partial Pressure CO2 39.9, Arterial Blood Partial Pressure O2 57.6L, Arterial Blood HCO3 16.2*L, Arterial Blood Oxygen Saturation 83.9*L, Arterial Blood Base Excess -10.6*L, Mando Test Positive Height (Feet): 5 Height (Inches): 1.00 Weight (Pounds): 120 Neck: supple Cardiovascular: normal rate Respiratory/Chest: lungs clear Amelie Rios MD May 13, 2019 21:38
--- NOTE | 2019-05-13 21:55 | NUR ---
NURSE NOTES: Dr. GEIGER called and received new orders. will carry out.
[2019-05-13] MEDS: Levemir Flexpen SUBQ SCH (22:37)
[2019-05-13] MEDS: Morphine Sulfate 2mg/ml Inj(IV/IM USE ONLY) IVP PRN (22:39)
[2019-05-14] VITALS (7 sets, daily range): BP systolic 116–147; BP diastolic 64–94
[2019-05-14] MEDS ORDERED: NovoLOG Insulin Flexpen SUBQ SCH
[2019-05-14] MEDS: Piperacillin/Tazobactam 3.375 GM in NS 110 ML IVPB SCH ×3 (00:21→17:00)
--- NOTE | 2019-05-14 01:30 | NUR ---
NURSE NOTES: Patient is asleep with no respiratory distress noted. vs stable. afebrile. no s/s of pain at this time. keep patient comfortable.
[2019-05-14] MEDS: Albuterol/Ipratropium 3ml neb HHN SCH ×6 (03:19→22:53)
--- NOTE | 2019-05-14 06:08 | Consultation ---
History of Present Illness General Chief Complaint: Vomiting Present Illness Allergies: Coded Allergies: No Known Allergies (Unverified , 11/08/15) Medication History Scheduled Acidophilus/Bulgaricus (Floranex Granules Packet), 1 EACH GT TID, (Reported) Amantadine HCl (Amantadine), 100 MG ORAL TWICE A DAY, (Reported) Ascorbic Acid* (Ascorbic Acid*), 500 MG GT DAILY, (Reported) Atorvastatin Calcium* (Atorvastatin Calcium*), 10 MG GT BEDTIME, (Reported) Carbidopa/Levodopa 25-100 Mg* (Sinemet 25-100 Mg Tablet*), 1 TAB ORAL THREE TIMES A DAY, (Reported) Citalopram Hydrobromide (Citalopram Hbr), 10 MG ORAL DAILY, (Reported) Clonidine Hcl* (Catapres*), 0.1 MG GT EVERY 6 HOURS, (Reported) Docusate Sodium* (Docusate Sodium*), 100 MG GT DAILY, (Reported) Docusate Sodium* (Colace*), 100 MG ORAL THREE TIMES A DAY, (Reported) Ferrous Sulfate* (Ferrous Sulfate*), 325 MG ORAL DAILY, (Reported) Furosemide* (Lasix*), 40 MG ORAL DAILY, (Reported) Furosemide* (Lasix*), 40 MG ORAL DAILY, (Reported) Gabapentin* (Neurontin*), 200 MG GT THREE TIMES A DAY, (Reported) Insulin Regular, Human* (Novolin R*), 0 SUBQ NEEDED, (Reported) Magnesium Hydroxide (Milk of Magnesia), 30 ML ORAL DAILY, (Reported) Metformin Hcl* (Metformin Hcl*), 1,000 MG GT BID, (Reported) Polyethylene Glycol 3350* (Miralax*), 17 GM ORAL DAILY, (Reported) Scheduled PRN Lactulose (Lactulose*), 15 ML GT BID PRN for Constipation, (Reported) Miscellaneous Medications Acetaminophen (Acetaminophen), 160 MG GT, (Reported) Bisacodyl (Dulcolax), 10 MG RC, (Reported) Glucagon,Human Recombinant (Glucagen), 1 MG IJ, (Reported) Insulin Lispro (Humalog), 0 SUBQ, (Reported) Multivit-Min/Iron Fum/Folic AC (Pqnbj-Dettlsj-Dfpsakrt Tablet), 1 EACH PO, ( Reported) Valproate Sodium (Valproic Acid), 250 MG PO, (Reported) Discontinued Medications Divalproex Sodium* (Depakote Er*), 500 MG GT EVERY 12 HOURS, (Reported) Discontinued Reason: MD discontinued med Fluconazole (Fluconazole), 100 MG ORAL DAILY Discontinued Reason: MD discontinued med Ipratropium/Albuterol Sulfate (DuoNeb 0.5-3(2.5)mg/3ml), 3 ML HHN, (Reported) Discontinued Reason: Medication dose changed Sennosides/Docusate Sodium (Senna-S Tablet), 2 EACH GT, (Reported) Discontinued Reason: MD discontinued med Sitagliptin* (Januvia*), 100 MG GT DAILY, (Reported) Discontinued Reason: Medication dose changed Patient History Healthcare decision maker Resuscitation status Advanced Directive on File No Physical Exam Last 24 Hour Vital Signs Date Time Temp Pulse Resp B/P (MAP) Pulse Ox O2 Delivery O2 Flow Rate FiO2 05/14/19 04:00 98.8 103 20 122/77 (92) 98 05/14/19 04:00 Venturi Mask 12.0 05/14/19 04:00 100 05/14/19 03:19 105 20 100 Venturi Mask 14.0 55 103 20 98 05/14/19 00:00 110 05/14/19 00:00 Venturi Mask 12.0 05/14/19 00:00 98.2 106 20 123/74 (90) 96 05/13/19 23:18 107 20 100 Venturi Mask 14.0 55 105 20 99 05/13/19 23:09 98.2 05/13/19 20:00 98.2 87 20 149/81 (103) 96 05/13/19 20:00 Venturi Mask 12.0 05/13/19 19:51 96 Venturi Mask 14.0 55 05/13/19 19:48 105 20 99 Venturi Mask 14.0 55 107 20 96 05/13/19 19:43 102 05/13/19 16:00 97.8 100 20 121/80 (94) 95 05/13/19 16:00 Venturi Mask 12.0 05/13/19 15:26 104 05/13/19 14:31 96 20 97 Venturi Mask 14.0 55 95 20 95 05/13/19 12:00 97.7 108 20 142/63 (89) 95 05/13/19 12:00 Venturi Mask 05/13/19 11:50 117 05/13/19 10:52 116 24 94 Venturi Mask 14.0 55 114 24 91 05/13/19 09:13 123 20 92 Venturi Mask 15.0 55 135 28 90 05/13/19 08:00 Venturi Mask 05/13/19 08:00 97.3 122 20 165/105 (125) 96 05/13/19 07:48 110 Intake and Output 05/13/19 05/14/19 19:00 07:00 Intake Total 665.0 ml Balance 665.0 ml Intake Oral 500 ml IV Total 165.0 ml # Voids 5 Laboratory Tests Test 05/13/19 07:10 05/13/19 08:30 05/13/19 10:13 Urine Eosinophils None seen (NONE SEEN) Urine Random Sodium 85 mmol/L (20-110) Sodium Level 144 MMOL/L (136-145) Potassium Level 3.9 MMOL/L (3.5-5.1) Chloride Level 110 MMOL/L (98-107) H Carbon Dioxide Level 19 MMOL/L (21-32) L Anion Gap 15 mmol/L (5-15) Blood Urea Nitrogen 17 mg/dL (7-18) Creatinine 1.2 MG/DL (0.55-1.30) Estimat Glomerular Filtration Rate 44.7 mL/min (>60) Glucose Level 401 MG/DL (74-106) #H Uric Acid 5.9 MG/DL (2.6-7.2) Calcium Level 7.1 MG/DL (8.5-10.1) #L Phosphorus Level 3.9 MG/DL (2.5-4.9) Magnesium Level 1.6 MG/DL (1.8-2.4) L Iron Level 15 ug/dL (50-175) L Total Iron Binding Capacity 368 ug/dL (250-450) Percent Iron Saturation 4 % (15-50) L Unsaturated Iron Binding 353 ug/dL (112-346) H Ferritin 20 NG/ML (8-388) Total Bilirubin < 0.1 MG/DL (0.2-1.0) L Gamma Glutamyl Transpeptidase 30 U/L (5-85) Aspartate Amino Transf (AST/SGOT) 30 U/L (15-37) Alanine Aminotransferase (ALT/SGPT) 35 U/L (12-78) Alkaline Phosphatase 55 U/L (46-116) C-Reactive Protein, Quantitative 0.5 mg/dL (0.00-0.90) Pro-B-Type Natriuretic Peptide 5424 pg/mL (0-125) H Total Protein 6.3 G/DL (6.4-8.2) L Albumin 2.5 G/DL (3.4-5.0) L Globulin 3.8 g/dL Albumin/Globulin Ratio 0.7 (1.0-2.7) L Triglycerides Level 89 MG/DL (30-150) Cholesterol Level 110 MG/DL (< 200) LDL Cholesterol 48 mg/dL (<100) HDL Cholesterol 48 MG/DL (40-60) Cholesterol/HDL Ratio 2.3 (3.3-4.4) L Vitamin B12 Level 604 PG/ML (193-986) Folate 16.9 NG/ML (8.6-58.9) Thyroid Stimulating Hormone (TSH) 1.697 uiU/mL (0.358-3.740) Arterial Blood pH 7.226 (7.350-7.450) Arterial Blood Partial Pressure CO2 39.9 mmHg (35.0-45.0) Arterial Blood Partial Pressure O2 57.6 mmHg (75.0-100.0) L Arterial Blood HCO3 16.2 mmol/L (22.0-26.0) *L Arterial Blood Oxygen Saturation 83.9 % (95-100) *L Arterial Blood Base Excess -10.6 (-2-2) *L Mando Test Positive Height (Feet): 5 Height (Inches): 1.00 Weight (Pounds): 120 Medications Current Medications Medications (Trade) Dose Ordered Sig/Tenzin Route PRN Reason Start Time Stop Time Status Last Admin Dose Admin Albuterol/ Ipratropium (Albuterol/ Ipratropium) 3 ml Q4H PRN HHN Shortness of Breath 05/13/19 09:00 05/18/19 08:59 05/13/19 09:18 Albuterol/ Ipratropium (Albuterol/ Ipratropium) 3 ml Q4HRT HHN 05/13/19 11:00 05/18/19 10:59 05/14/19 03:19 Dextrose (Dextrose 50%) 25 ml Q30M PRN IV Hypoglycemia 05/13/19 22:00 06/12/19 21:59 Dextrose (Dextrose 50%) 50 ml Q30M PRN IV Hypoglycemia 05/13/19 22:00 06/12/19 21:59 Insulin Aspart (NovoLOG) BEFORE MEALS AND HS SUBQ 05/14/19 06:30 06/13/19 06:29 Insulin Detemir (Levemir) 10 units Q24H SUBQ 05/13/19 22:00 06/12/19 21:59 05/13/19 22:37 Morphine Sulfate (Morphine Sulfate) 1 mg Q6H PRN IVP For Pain 05/13/19 09:30 05/20/19 09:29 05/13/19 22:39 Nateglinide (Starlix) 60 mg TIAC ORAL 05/13/19 11:30 06/12/19 11:29 05/13/19 16:32 Ondansetron HCl (Zofran) 4 mg Q6H PRN IVP Nausea & Vomiting 05/12/19 09:45 06/11/19 09:44 Pantoprazole (Protonix) 40 mg BID ORAL 05/13/19 18:00 06/13/19 08:59 05/13/19 17:11 Piperacillin Sod/ Tazobactam Sod 3.375 gm/Sodium Chloride 110 ml @ 27.5 mls/hr Q8H IVPB 05/12/19 16:00 05/19/19 15:59 05/14/19 00:21 Sodium Chloride 550 ml @ 0 mls/hr Q0M IV 05/12/19 14:00 06/11/19 13:59 Assessment/Plan Assessment/Plan: Hematology Consultation REQ : Amelie Ring RFC: Anemia of iron deficiency DOS: 05/14/19 HPI 68y old female, presents with vomiting. Began earlier today. She is not been able to keep anything down. The patient has a history of insulin-dependent diabetes. She believes her blood sugars have been okay. She denies abdominal pain. She has been moving her bowels without difficulty. She denies any fevers or chills. No sore throat, chest pain, palpitations, shortness of breath , cough, joint pain, rashes, depression, anxiety, visual changes, dizziness, headache. At this time remains anemic, reviewed anemia panel and hgb lower 8.2, ferritin is less than 100, started on iv iron this am. Last admitted 2015 for sepsis. Charge diagnoses: 1. Sepsis possibly from urinary tract infection. 2. Urinary tract infection with Escherichia coli extended-spectrum beta-lactamase. 3. Seizure disorder. 4. Diabetes mellitus with hyperglycemia. 5. Dysphagia status post percutaneous endoscopic gastrostomy. 6. Chronic encephalopathy. 7. Hyperlipidemia with type 2 diabetes. 8. Elevated liver function tests with ultrasound finding of cholelithiasis and normal bilirubin. 9. Scab on the right ear and stage I decubitus ulcer on the sacral coccygeal area present on admission. Coded Allergies: No Known Allergies (Unverified , 11/08/15) Patient History Past Medical History: see triage record, old chart reviewed Past Surgical History: other - Gastrostomy tube Social History: Denies: smoking, alcohol use, drug use Social History Narrative [facility] facility Now: No Reviewed Nursing Documentation: PMH: Agreed; PSxH: Agreed Nursing Documentation-PMH Hx Cardiac Problems: Yes - tachycardia, aterosclerosis of aorta Hx Hypertension: Yes Hx COPD: Yes Hx Diabetes: Yes - anemia Hx Gastrointestinal Problems: Yes - hepatic failure, GERD History Of Psychiatric Problem: Yes - major depression, bipolar Hx Dementia: Yes Hx Seizures: Yes Review of Systems All Other Systems: negative except mentioned in HPI Physical Exam Vitals: reviewed General: alert, non-toxic, thin, other - Frail, Chronically Ill Head: normocephalic, atraumatic Heent: bilateral eye normal inspection, bilateral eye PERRl Respiratory: lungs clear, normal breath sounds, Cardiovascular: regular rate, rhythm, no edema Gi: non tender, soft, decreased bowel sounds Gu: no CVA tenderness Msk: no calf tenderness, + Atrophy Neuro: alert, sensory intact, w motor weakness Psychiatric: mood/affect normal Skin: ++ Du Labs: noted Imaging: reviewed Assessment and Recs: # Anemia of iron deficiency -- hgb remains low, anemia panel reviewed, ferritin is 20 --> start on iv iron x 5 days --> cea is 4.9 --> no hemolysis is seen --> r/o gi bleed, gi is on board # Leukocytosis with Sepsis likely due to uti --> has now improved --> levaquin started # Ryan on admission --> per renal on ivf # Elevated lactic acid level --> sp abx lecquin # Type 2 diabetes mellitus --> acucchecks qac and qhs --> iss, consider endo # Stage I decubitus ulcer sacrum # Dvt ppx scds Appreciate consultation and dw Danie Pradhan MD May 14, 2019 06:08
[2019-05-14] MEDS: Nateglinide 60mg tab ORAL SCH ×3 (06:47→16:37)
[2019-05-14] MEDS: NovoLOG Insulin Flexpen SUBQ SCH ×4 (06:49→21:57)
--- NOTE | 2019-05-14 07:40 | NUR ---
HAND-OFF: Report given to TONEY BARTON RN.stable in conditions.
--- NOTE | 2019-05-14 07:45 | NUR ---
NURSE NOTES: Report received from Kareen LINDSAY.Pt awake,alert noted no resp distress on Venturi Mask 50%FIO2,denies any c/o pain or discomfort S-Tach on the monitor,skin warm and dry,IV site to LAC intact,incontinent of urine and stools,on diaper,SR up x2 HOB elevated,bed lock in lowest position,will continue with plans of care.
[2019-05-14 09:50] LABS: HEMATOCRIT 21.3 % (37.0-47.0); MEAN CORPUSCULAR VOLUME 85 FL (80-99); PLATELET COUNT 300 K/UL (150-450); RED CELL DISTRIBUTION WIDTH 14.1 % (11.6-14.8); WHITE BLOOD COUNT 11.8 K/UL (4.8-10.8)
--- NOTE | 2019-05-14 10:02 | Pulmonology Progress Note ---
Assessment/Plan Assessment/Plan Pulmonary Progress Note HPI: The patient is a 68 year old woman, [facility] resident with past medical history of Parkinsons Disease, focal weakness, Diabetes, Mood Disorder, Seizure History, Hyperlipidemia, Constipation admitted with UTI/sepsis, noted to be hypotensive on admission, have significantly elevated Lactic Acid Levels, Positive Urine Ketones, Acute Renal Insufficiency, Anemia. The patient has been having fevers, vomiting for two days, had c/o abdominal pain and diarrhea for two days DIRECTOR OF COMMUNICATIONS. No rectal bleeding noted. No shortness of breath, orthopnea DIRECTOR OF COMMUNICATIONS. No wheezing, cough or chest pain DIRECTOR OF COMMUNICATIONS. Admission EKG note LA enlargement, worsening SOB since admission despite use HHN. BP improved with IV fluids, being diuresed PRN. ABG improved, Glucose improved on ISS PAST MEDICAL HISTORY: Parkinsons Disease, focal weakness, Diabetes, Mood Disorder, Seizure History, Hyperlipidemia, Constipation, Anemia PAST SURGICAL HISTORY: Tubal ligation. SOCIAL HISTORY: No history of smoking. Denies history of drug or alcohol abuse. ALLERGIES: No known allergies. MEDICATIONS: DIRECTOR OF COMMUNICATIONS: Lipitor, bisacodyl, citalopram, Colace, ferrous sulfate, Lasix, insulin, metformin. On antibiotics per ID, HHN, O2 PRN, ISS FAMILY HISTORY: Noncontributory. REVIEW OF SYSTEMS: Negative aside from above PHYSICAL EXAMINATION: VITAL SIGNS NOTED HEENT: NCAT, moist mm. NECK: No lymphadenopathy, no masses CHEST: Basal crackles, occasional rhonchi. CARDIOVASCULAR: Regular rate and rhythm. No murmurs or extra sounds. GASTROINTESTINAL: Soft, nontender, nondistended. No organomegaly. EXTREMITIES: Mild edema. 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: Priented, tremor, right arm weaker than left, no seizures, sensation intact ASSESSMENT: Sepsis, vomiting, and diarrhea UTI, possible Pneumonia Constipation Parkinsons Disease Previous h/o focal weakness Diabetes Anemia Mood Disorder Seizure History Hyperlipidemia PLAN: - Diurese PRN - Reduce IVF - HHN - O2 PRN - Echocardiogram - PPX - Antibiotics per ID - DIRECTOR OF COMMUNICATIONS Medications - Lantus/ISS given hyperglycemia, Increased AG and Ketones - BiPAP PRN and QHS - ST evaluation of swallow - GI following - Monitor labs/ABG PRN - Heme following for anemia EKG: LA enlargement CXR: No acute disease initially, currently: extensive bilateral interstitial and airspace disease, likely pneumonia although edema also possibility. Suspect small left and possible trace right pleural effusions KUB: Normal LE Dupplex: Negative BC : Negative UA: Positive for UTI NPA: >2400 Subjective ROS Limited/Unobtainable: No Allergies: Coded Allergies: No Known Allergies (Unverified , 11/08/15) Objective Last 24 Hour Vital Signs Date Time Temp Pulse Resp B/P (MAP) Pulse Ox O2 Delivery O2 Flow Rate FiO2 05/14/19 08:00 97.9 107 18 147/73 (97) 94 05/14/19 07:32 113 18 100 Venturi Mask 14.0 55 108 18 98 05/14/19 07:22 98 Venturi Mask 14.0 55 05/14/19 04:00 98.8 103 20 122/77 (92) 98 05/14/19 04:00 Venturi Mask 12.0 05/14/19 04:00 100 05/14/19 03:19 105 20 100 Venturi Mask 14.0 55 103 20 98 05/14/19 00:00 110 05/14/19 00:00 Venturi Mask 12.0 05/14/19 00:00 98.2 106 20 123/74 (90) 96 05/13/19 23:18 107 20 100 Venturi Mask 14.0 55 105 20 99 05/13/19 23:09 98.2 05/13/19 20:00 98.2 87 20 149/81 (103) 96 05/13/19 20:00 Venturi Mask 12.0 05/13/19 19:51 96 Venturi Mask 14.0 55 05/13/19 19:48 105 20 99 Venturi Mask 14.0 55 107 20 96 05/13/19 19:43 102 05/13/19 16:00 97.8 100 20 121/80 (94) 95 05/13/19 16:00 Venturi Mask 12.0 05/13/19 15:26 104 05/13/19 14:31 96 20 97 Venturi Mask 14.0 55 95 20 95 05/13/19 12:00 97.7 108 20 142/63 (89) 95 05/13/19 12:00 Venturi Mask 05/13/19 11:50 117 05/13/19 10:52 116 24 94 Venturi Mask 14.0 55 114 24 91 Intake and Output 05/13/19 05/14/19 19:00 07:00 Intake Total 665.0 ml 310.0 ml Balance 665.0 ml 310.0 ml Intake Oral 500 ml 200 ml IV Total 165.0 ml 110.0 ml # Voids 5 4 Microbiology Date/Time Source Procedure Growth Status 05/12/19 00:50 Blood Blood Culture - Preliminary NO GROWTH AFTER 48 HOURS Resulted 05/12/19 00:35 Blood Blood Culture - Preliminary NO GROWTH AFTER 48 HOURS Resulted 05/12/19 06:40 Nasal Nares MRSA Culture - Final NO METHICILLIN RESISTANT STAPH AUREUS... Complete 05/12/19 02:45 Urine,Clean Catch Urine Culture - Preliminary NO GROWTH AFTER 24 HOURS Resulted 05/12/19 06:40 Rectum VRE Culture - Final NO VANCOMYCIN RESISTANT ENTEROCOCCUS ... Complete 05/12/19 06:40 Rectum - Final NO CARBAPENEM-RESISTANT ENTEROBACTERI... Complete Laboratory Tests 05/13/19 10:13: Arterial Blood pH 7.226*L, Arterial Blood Partial Pressure CO2 39.9, Arterial Blood Partial Pressure O2 57.6L, Arterial Blood HCO3 16.2*L, Arterial Blood Oxygen Saturation 83.9*L, Arterial Blood Base Excess -10.6*L, Mando Test Positive 05/14/19 09:10: Arterial Blood pH 7.481H, Arterial Blood Partial Pressure CO2 33.8L, Arterial Blood Partial Pressure O2 94.0, Arterial Blood HCO3 24.7, Arterial Blood Oxygen Saturation 96.9, Arterial Blood Base Excess 1.2, Mando Test Positive 05/14/19 09:30: White Blood Count 11.8H, Red Blood Count 2.50L, Hemoglobin 7.0L, Hematocrit 21.3L, Mean Corpuscular Volume 85, Mean Corpuscular Hemoglobin 28.0, Mean Corpuscular Hemoglobin Concent 32.9, Red Cell Distribution Width 14.1, Platelet Count 300, Mean Platelet Volume 5.1L, Neutrophils (%) (Auto) , Lymphocytes (%) ( Auto) , Monocytes (%) (Auto) , Eosinophils (%) (Auto) , Basophils (%) (Auto) , Neutrophils % (Manual) [Pending], Lymphocytes % (Manual) [Pending], Platelet Estimate [Pending], Platelet Morphology [Pending], Sodium Level [Pending], Potassium Level [Pending], Chloride Level [Pending], Carbon Dioxide Level [ Pending], Blood Urea Nitrogen [Pending], Creatinine [Pending], Estimat Glomerular Filtration Rate [Pending], Glucose Level [Pending], Calcium Level [ Pending], Phosphorus Level [Pending], Magnesium Level [Pending], Total Bilirubin [Pending], Aspartate Amino Transf (AST/SGOT) [Pending], Alanine Aminotransferase (ALT/SGPT) [Pending], Alkaline Phosphatase [Pending], C- Reactive Protein, Quantitative [Pending], Total Protein [Pending], Albumin [ Pending], Globulin [Pending] Current Medications Medications (Trade) Dose Ordered Sig/Tenzin Route PRN Reason Start Time Stop Time Status Last Admin Dose Admin Albuterol/ Ipratropium (Albuterol/ Ipratropium) 3 ml Q4H PRN HHN Shortness of Breath 05/13/19 09:00 05/18/19 08:59 05/13/19 09:18 Albuterol/ Ipratropium (Albuterol/ Ipratropium) 3 ml Q4HRT HHN 05/13/19 11:00 05/18/19 10:59 05/14/19 07:22 Dextrose (Dextrose 50%) 25 ml Q30M PRN IV Hypoglycemia 05/13/19 22:00 06/12/19 21:59 Dextrose (Dextrose 50%) 50 ml Q30M PRN IV Hypoglycemia 05/13/19 22:00 06/12/19 21:59 Insulin Aspart (NovoLOG) BEFORE MEALS AND HS SUBQ 05/14/19 06:30 06/13/19 06:29 05/14/19 06:49 Insulin Detemir (Levemir) 10 units Q24H SUBQ 05/13/19 22:00 06/12/19 21:59 05/13/19 22:37 Iron Sucrose 100 mg/Sodium Chloride 60 ml @ 240 mls/hr BEDTIME IV 05/14/19 21:00 05/18/19 21:14 Morphine Sulfate (Morphine Sulfate) 1 mg Q6H PRN IVP For Pain 05/13/19 09:30 05/20/19 09:29 05/13/19 22:39 Nateglinide (Starlix) 60 mg TIAC ORAL 05/13/19 11:30 06/12/19 11:29 05/14/19 06:47 Ondansetron HCl (Zofran) 4 mg Q6H PRN IVP Nausea & Vomiting 05/12/19 09:45 06/11/19 09:44 Pantoprazole (Protonix) 40 mg BID ORAL 05/13/19 18:00 06/13/19 08:59 05/14/19 08:55 Piperacillin Sod/ Tazobactam Sod 3.375 gm/Sodium Chloride 110 ml @ 27.5 mls/hr Q8H IVPB 05/12/19 16:00 05/19/19 15:59 05/14/19 08:55 Sodium Chloride 550 ml @ 0 mls/hr Q0M IV 05/12/19 14:00 06/11/19 13:59 Walker Blank MD May 14, 2019 10:02
[2019-05-14 10:12] LABS: ALANINE AMINOTRANSFERASE 34 U/L (12-78); ALBUMIN 2.5 G/DL (3.4-5.0); ALBUMIN/GLOBULIN RATIO 0.7 (1.0-2.7); ALKALINE PHOSPHATASE 44 U/L (46-116); ANION GAP 9 mmol/L (5-15); ASPARTATE AMINO TRANSFERASE 25 U/L (15-37); BILIRUBIN,TOTAL 0.2 MG/DL (0.2-1.0); BLOOD UREA NITROGEN 12 mg/dL (7-18); CALCIUM 7.3 MG/DL (8.5-10.1); CARBON DIOXIDE 29 MMOL/L (21-32); CHLORIDE 107 MMOL/L (98-107); CREATININE 0.9 MG/DL (0.55-1.30); SODIUM 144 MMOL/L (136-145)
--- NOTE | 2019-05-14 10:29 | Infectious Diseases Prog Note ---
Assessment/Plan Assessment/Plan IMPRESSION: Pneumonia Leukocytosis, Acute renal failure. improving diabetes mellitus, hypertension, COPD, anemia. RECOMMENDATION: Continue Zosyn. So far cultures are negative Influenza vaccination Subjective ROS Limited/Unobtainable: No Constitutional: Reports: no symptoms, other - feels better than yesterday Respiratory: Reports: shortness of breath; Denies: dry cough, productive cough Gastrointestinal/Abdominal: Reports: no symptoms Genitourinary: Reports: no symptoms Allergies: Coded Allergies: No Known Allergies (Unverified , 11/08/15) Objective Vital Signs Last 24 Hour Vital Signs Date Time Temp Pulse Resp B/P (MAP) Pulse Ox O2 Delivery O2 Flow Rate FiO2 05/14/19 10:20 101 18 99 Venturi Mask 14.0 55 99 20 96 05/14/19 08:00 Venturi Mask 12.0 05/14/19 08:00 90 05/14/19 08:00 97.9 107 18 147/73 (97) 94 05/14/19 07:32 113 18 100 Venturi Mask 14.0 55 108 18 98 05/14/19 07:22 98 Venturi Mask 14.0 55 05/14/19 04:00 98.8 103 20 122/77 (92) 98 05/14/19 04:00 Venturi Mask 12.0 05/14/19 04:00 100 05/14/19 03:19 105 20 100 Venturi Mask 14.0 55 103 20 98 05/14/19 00:00 110 05/14/19 00:00 Venturi Mask 12.0 05/14/19 00:00 98.2 106 20 123/74 (90) 96 05/13/19 23:18 107 20 100 Venturi Mask 14.0 55 105 20 99 05/13/19 23:09 98.2 05/13/19 20:00 98.2 87 20 149/81 (103) 96 05/13/19 20:00 Venturi Mask 12.0 05/13/19 19:51 96 Venturi Mask 14.0 55 05/13/19 19:48 105 20 99 Venturi Mask 14.0 55 107 20 96 05/13/19 19:43 102 05/13/19 16:00 97.8 100 20 121/80 (94) 95 05/13/19 16:00 Venturi Mask 12.0 05/13/19 15:26 104 05/13/19 14:31 96 20 97 Venturi Mask 14.0 55 95 20 95 05/13/19 12:00 97.7 108 20 142/63 (89) 95 05/13/19 12:00 Venturi Mask 05/13/19 11:50 117 05/13/19 10:52 116 24 94 Venturi Mask 14.0 55 114 24 91 Height (Feet): 5 Height (Inches): 1.00 Weight (Pounds): 120 General Appearance: no acute distress HEENT: mucous membranes moist Respiratory/Chest: lungs clear, other - oxygen by mask Cardiovascular: tachycardia Abdomen: soft, non tender Extremities: no edema Neurologic/Psychiatric: alert, responsive, other - tremor Microbiology Date/Time Source Procedure Growth Status 05/12/19 00:50 Blood Blood Culture - Preliminary NO GROWTH AFTER 48 HOURS Resulted 05/12/19 00:35 Blood Blood Culture - Preliminary NO GROWTH AFTER 48 HOURS Resulted 05/12/19 06:40 Nasal Nares MRSA Culture - Final NO METHICILLIN RESISTANT STAPH AUREUS... Complete 05/12/19 02:45 Urine,Clean Catch Urine Culture - Preliminary NO GROWTH AFTER 24 HOURS Resulted 05/12/19 06:40 Rectum VRE Culture - Final NO VANCOMYCIN RESISTANT ENTEROCOCCUS ... Complete 05/12/19 06:40 Rectum - Final NO CARBAPENEM-RESISTANT ENTEROBACTERI... Complete Laboratory Tests Test 05/14/19 09:10 05/14/19 09:30 Arterial Blood pH 7.481 (7.350-7.450) Arterial Blood Partial Pressure CO2 33.8 mmHg (35.0-45.0) L Arterial Blood Partial Pressure O2 94.0 mmHg (75.0-100.0) Arterial Blood HCO3 24.7 mmol/L (22.0-26.0) Arterial Blood Oxygen Saturation 96.9 % (95-100) Arterial Blood Base Excess 1.2 (-2-2) Mando Test Positive White Blood Count 11.8 K/UL (4.8-10.8) H Red Blood Count 2.50 M/UL (4.20-5.40) L Hemoglobin 7.0 G/DL (12.0-16.0) L Hematocrit 21.3 % (37.0-47.0) L Mean Corpuscular Volume 85 FL (80-99) Mean Corpuscular Hemoglobin 28.0 PG (27.0-31.0) Mean Corpuscular Hemoglobin Concent 32.9 G/DL (32.0-36.0) Red Cell Distribution Width 14.1 % (11.6-14.8) Platelet Count 300 K/UL (150-450) Mean Platelet Volume 5.1 FL (6.5-10.1) L Neutrophils (%) (Auto) % (45.0-75.0) Lymphocytes (%) (Auto) % (20.0-45.0) Monocytes (%) (Auto) % (1.0-10.0) Eosinophils (%) (Auto) % (0.0-3.0) Basophils (%) (Auto) % (0.0-2.0) Differential Total Cells Counted 100 Neutrophils % (Manual) 78 % (45-75) H Lymphocytes % (Manual) 15 % (20-45) L Monocytes % (Manual) 6 % (1-10) Eosinophils % (Manual) 1 % (0-3) Basophils % (Manual) 0 % (0-2) Band Neutrophils 0 % (0-8) Platelet Estimate Adequate Platelet Morphology Normal Hypochromasia 1+ Anisocytosis 1+ Sodium Level 144 MMOL/L (136-145) Potassium Level 3.0 MMOL/L (3.5-5.1) L Chloride Level 107 MMOL/L (98-107) Carbon Dioxide Level 29 MMOL/L (21-32) Anion Gap 9 mmol/L (5-15) Blood Urea Nitrogen 12 mg/dL (7-18) Creatinine 0.9 MG/DL (0.55-1.30) Estimat Glomerular Filtration Rate > 60 mL/min (>60) Glucose Level 173 MG/DL (74-106) #H Calcium Level 7.3 MG/DL (8.5-10.1) L Phosphorus Level 2.0 MG/DL (2.5-4.9) L Magnesium Level 1.4 MG/DL (1.8-2.4) L Total Bilirubin 0.2 MG/DL (0.2-1.0) Aspartate Amino Transf (AST/SGOT) 25 U/L (15-37) Alanine Aminotransferase (ALT/SGPT) 34 U/L (12-78) Alkaline Phosphatase 44 U/L (46-116) L C-Reactive Protein, Quantitative 3.0 mg/dL (0.00-0.90) H Total Protein 6.1 G/DL (6.4-8.2) L Albumin 2.5 G/DL (3.4-5.0) L Globulin 3.6 g/dL Albumin/Globulin Ratio 0.7 (1.0-2.7) L Current Medications Medications (Trade) Dose Ordered Sig/Tenzin Route PRN Reason Start Time Stop Time Status Last Admin Dose Admin Albuterol/ Ipratropium (Albuterol/ Ipratropium) 3 ml Q4H PRN HHN Shortness of Breath 05/13/19 09:00 05/18/19 08:59 05/13/19 09:18 Albuterol/ Ipratropium (Albuterol/ Ipratropium) 3 ml Q4HRT HHN 05/13/19 11:00 05/18/19 10:59 05/14/19 10:10 Dextrose (Dextrose 50%) 25 ml Q30M PRN IV Hypoglycemia 05/13/19 22:00 06/12/19 21:59 Dextrose (Dextrose 50%) 50 ml Q30M PRN IV Hypoglycemia 05/13/19 22:00 06/12/19 21:59 Insulin Aspart (NovoLOG) BEFORE MEALS AND HS SUBQ 05/14/19 06:30 06/13/19 06:29 05/14/19 06:49 Insulin Detemir (Levemir) 10 units Q24H SUBQ 05/13/19 22:00 06/12/19 21:59 05/13/19 22:37 Iron Sucrose 100 mg/Sodium Chloride 60 ml @ 240 mls/hr BEDTIME IV 05/14/19 21:00 05/18/19 21:14 Morphine Sulfate (Morphine Sulfate) 1 mg Q6H PRN IVP For Pain 05/13/19 09:30 05/20/19 09:29 05/13/19 22:39 Nateglinide (Starlix) 60 mg TIAC ORAL 05/13/19 11:30 06/12/19 11:29 05/14/19 06:47 Ondansetron HCl (Zofran) 4 mg Q6H PRN IVP Nausea & Vomiting 05/12/19 09:45 06/11/19 09:44 Pantoprazole (Protonix) 40 mg BID ORAL 05/13/19 18:00 06/13/19 08:59 05/14/19 08:55 Piperacillin Sod/ Tazobactam Sod 3.375 gm/Sodium Chloride 110 ml @ 27.5 mls/hr Q8H IVPB 05/12/19 16:00 05/19/19 15:59 05/14/19 08:55 Sodium Chloride 550 ml @ 0 mls/hr Q0M IV 05/12/19 14:00 06/11/19 13:59 Rogelio Martinez MD May 14, 2019 10:29
--- NOTE | 2019-05-14 11:45 | Nephrology Progress Note ---
Assessment/Plan Problem List: (1) Azotemia (2) Type 2 diabetes mellitus (3) Elevated lactic acid level (4) COPD exacerbation Assessment Renal failure COPD Acute- dehydration , ? CKD underlying UTI , High Lactic HyperKalemia DM Anemia DNR Plan correct mag and K and Phos- ABG noted 2D echo pending DC Hydrate- Lasix one dose Pulm toilet Anemia castro PO protonix Monitor renal parameters Subjective ROS Limited/Unobtainable: No Constitutional: Reports: malaise, weakness Objective Objective Last 24 Hour Vital Signs Date Time Temp Pulse Resp B/P (MAP) Pulse Ox O2 Delivery O2 Flow Rate FiO2 05/14/19 10:20 101 18 99 Venturi Mask 14.0 55 99 20 96 05/14/19 08:00 Venturi Mask 12.0 05/14/19 08:00 90 05/14/19 08:00 97.9 107 18 147/73 (97) 94 05/14/19 07:32 113 18 100 Venturi Mask 14.0 55 108 18 98 05/14/19 07:22 98 Venturi Mask 14.0 55 05/14/19 04:00 98.8 103 20 122/77 (92) 98 05/14/19 04:00 Venturi Mask 12.0 05/14/19 04:00 100 05/14/19 03:19 105 20 100 Venturi Mask 14.0 55 103 20 98 05/14/19 00:00 110 05/14/19 00:00 Venturi Mask 12.0 05/14/19 00:00 98.2 106 20 123/74 (90) 96 05/13/19 23:18 107 20 100 Venturi Mask 14.0 55 105 20 99 05/13/19 23:09 98.2 05/13/19 20:00 98.2 87 20 149/81 (103) 96 05/13/19 20:00 Venturi Mask 12.0 05/13/19 19:51 96 Venturi Mask 14.0 55 05/13/19 19:48 105 20 99 Venturi Mask 14.0 55 107 20 96 05/13/19 19:43 102 05/13/19 16:00 97.8 100 20 121/80 (94) 95 05/13/19 16:00 Venturi Mask 12.0 05/13/19 15:26 104 05/13/19 14:31 96 20 97 Venturi Mask 14.0 55 95 20 95 05/13/19 12:00 97.7 108 20 142/63 (89) 95 05/13/19 12:00 Venturi Mask 05/13/19 11:50 117 Intake and Output 05/13/19 05/14/19 19:00 07:00 Intake Total 665.0 ml 310.0 ml Balance 665.0 ml 310.0 ml Intake Oral 500 ml 200 ml IV Total 165.0 ml 110.0 ml # Voids 5 4 Current Medications Medications (Trade) Dose Ordered Sig/Tenzin Route PRN Reason Start Time Stop Time Status Last Admin Dose Admin Albuterol/ Ipratropium (Albuterol/ Ipratropium) 3 ml Q4H PRN HHN Shortness of Breath 05/13/19 09:00 05/18/19 08:59 05/13/19 09:18 Albuterol/ Ipratropium (Albuterol/ Ipratropium) 3 ml Q4HRT HHN 05/13/19 11:00 05/18/19 10:59 05/14/19 10:10 Dextrose (Dextrose 50%) 25 ml Q30M PRN IV Hypoglycemia 05/13/19 22:00 06/12/19 21:59 Dextrose (Dextrose 50%) 50 ml Q30M PRN IV Hypoglycemia 05/13/19 22:00 06/12/19 21:59 Influenza Virus Vaccine Quadrival (Flu Vaccine) 0.5 ml ONCE ONCE IM 05/14/19 10:30 05/14/19 10:31 UNV Insulin Aspart (NovoLOG) BEFORE MEALS AND HS SUBQ 05/14/19 06:30 06/13/19 06:29 05/14/19 06:49 Insulin Detemir (Levemir) 10 units Q24H SUBQ 05/13/19 22:00 06/12/19 21:59 05/13/19 22:37 Iron Sucrose 100 mg/Sodium Chloride 60 ml @ 240 mls/hr BEDTIME IV 05/14/19 21:00 05/18/19 21:14 Morphine Sulfate (Morphine Sulfate) 1 mg Q6H PRN IVP For Pain 05/13/19 09:30 05/20/19 09:29 05/13/19 22:39 Nateglinide (Starlix) 60 mg TIAC ORAL 05/13/19 11:30 06/12/19 11:29 05/14/19 06:47 Ondansetron HCl (Zofran) 4 mg Q6H PRN IVP Nausea & Vomiting 05/12/19 09:45 06/11/19 09:44 Pantoprazole (Protonix) 40 mg BID ORAL 05/13/19 18:00 06/13/19 08:59 05/14/19 08:55 Piperacillin Sod/ Tazobactam Sod 3.375 gm/Sodium Chloride 110 ml @ 27.5 mls/hr Q8H IVPB 05/12/19 16:00 05/19/19 15:59 05/14/19 08:55 Sodium Chloride 550 ml @ 0 mls/hr Q0M IV 05/12/19 14:00 06/11/19 13:59 Laboratory Tests 05/14/19 09:10: Arterial Blood pH 7.481H, Arterial Blood Partial Pressure CO2 33.8L, Arterial Blood Partial Pressure O2 94.0, Arterial Blood HCO3 24.7, Arterial Blood Oxygen Saturation 96.9, Arterial Blood Base Excess 1.2, Mando Test Positive 05/14/19 09:30: White Blood Count 11.8H, Red Blood Count 2.50L, Hemoglobin 7.0L, Hematocrit 21.3L, Mean Corpuscular Volume 85, Mean Corpuscular Hemoglobin 28.0, Mean Corpuscular Hemoglobin Concent 32.9, Red Cell Distribution Width 14.1, Platelet Count 300, Mean Platelet Volume 5.1L, Neutrophils (%) (Auto) , Lymphocytes (%) ( Auto) , Monocytes (%) (Auto) , Eosinophils (%) (Auto) , Basophils (%) (Auto) , Differential Total Cells Counted 100, Neutrophils % (Manual) 78H, Lymphocytes % (Manual) 15L, Monocytes % (Manual) 6, Eosinophils % (Manual) 1, Basophils % ( Manual) 0, Band Neutrophils 0, Platelet Estimate Adequate, Platelet Morphology Normal, Hypochromasia 1+, Anisocytosis 1+, Sodium Level 144, Potassium Level 3.0L, Chloride Level 107, Carbon Dioxide Level 29, Anion Gap 9, Blood Urea Nitrogen 12, Creatinine 0.9, Estimat Glomerular Filtration Rate > 60, Glucose Level 173#H, Calcium Level 7.3L, Phosphorus Level 2.0L, Magnesium Level 1.4L, Total Bilirubin 0.2, Aspartate Amino Transf (AST/SGOT) 25, Alanine Aminotransferase (ALT/SGPT) 34, Alkaline Phosphatase 44L, C-Reactive Protein, Quantitative 3.0H, Total Protein 6.1L, Albumin 2.5L, Globulin 3.6, Albumin/ Globulin Ratio 0.7L Height (Feet): 5 Height (Inches): 1.00 Weight (Pounds): 120 General Appearance: no apparent distress Cardiovascular: tachycardia Respiratory/Chest: decreased breath sounds Abdomen: distended José Miguel Calvert MD May 14, 2019 11:45
--- NOTE | 2019-05-14 11:45 | NUR ---
CASE MANAGEMENT: REVIEW 05/14/2019 SI:SEPSIS. ELEVATED LACTID ACID.ANEMIA.UTI. RENAL INSUFFICIENCY. DIABETES 97.9 107 18 147/73 VM @12L 94% HGB 7.0 HCT 21.3 WBC 11.8 K 3.0 GLU 173 PHOS 2.0 MAG 1.4 ABG~ pH 7.481 pCO2 33.8 IS:STARLIX TIAC SS INSULIN MAGNESIUM IVPB X4 K-PHOS IVPB X1 NEB TX Q4HRT ZOSYN IV Q8H PROTONIX PO BID VENOFER IV QHS LEVEMIR SUBQ Q24H MORPHINE IV Q6H PRN ~~~~SDU STATUS 2 [place] DCP: FROM [facility]
--- NOTE | 2019-05-14 12:00 | NUR ---
NURSE NOTES: Pt stable noted no distress denies any complaints.
[2019-05-14] MEDS ORDERED: Potassium Phosphate 30 MM in NS 275 ML IV ONE (13:00)
--- NOTE | 2019-05-14 13:37 | NUR ---
BEDSIDE SWALLOW EVALUATION COMPLETED POST CHART REVIEW AND INTERVIEW WITH RN. PATIENT IS A 68 Y.O. FEMALE ADMITTED WITH DX OF PNEUMONIA (S/P FEVER, VOMITING) DYSPHAGIA RISK FACTORS INCLUDE: PARKINSON'S, NEUROPATHY, XEROSTOMIA, PNEUMONIA. PER CURRENT CXR: RIGHT UPPER/LOWER LOBE INFILTRATE PATIENT SEEN IN AM, ALERT, ORIENTED, GOOD HISTORIAN, VERBAL. SHE WAS ASSESSED WITH P.O. TRIALS OF THIN LIQUID PRESENTED VIA CUP/SIP AND IN 5ML AMOUNTS VIA SPOON, AND PUREE (EDENTULOUS). INITIAL IMPRESSION: MILD/MOD OROPHARYNGEAL DYSPHAGIA WITH DELAYS IN ORAL PREPARATION/ORAL TRANSIT AND INITIATION OF PHARYNGEAL PHASE OF SWALLOW. FAIR LARYNGEAL ELEVATION. CLEAR VOCAL QUALITY PRE AND POST SWALLOW. NO OVERT S/S OF ASPIRATION. MOD SILENT ASPIRATION RISK. RECOMMENDATIONS: 1. MODIFIED TEXTURE DIET: PUREE AND THIN LIQUIDS SIP/BY/SIP WITH CUP 2. THIN LIQUIDS, NO STRAWS 3. TOTAL ASSIST WITH MEALS 4. CRUSH CRUSHABLE MEDS/PRESENT IN PUREE 5. VIDEO SWALLOW SOON CAN BE SCHEDULED 6. ST TO FOLLOW FOR DIET TOLERANCE, MBSS, PATIENT/STAFF EDN
--- NOTE | 2019-05-14 15:41 | General Progress Note ---
Assessment/Plan Status: progressing Assessment/Plan: Assessment - N/V - improved - Sepsis - improved - lactic acidosis - improved - Renal failure Recommendations - Abx - IVF - advance to pureed - follow labs - Check OB - consider CT and/pelvis Subjective Allergies: Coded Allergies: No Known Allergies (Unverified , 11/08/15) Subjective Feels OK no abdominal complaints breathing OK ST noted Objective Last 24 Hour Vital Signs Date Time Temp Pulse Resp B/P (MAP) Pulse Ox O2 Delivery O2 Flow Rate FiO2 05/14/19 14:50 97 20 99 Venturi Mask 14.0 55 97 20 96 05/14/19 12:00 98.1 103 20 138/82 (100) 91 05/14/19 12:00 108 05/14/19 12:00 Venturi Mask 12.0 05/14/19 10:20 101 18 99 Venturi Mask 14.0 55 99 20 96 05/14/19 08:00 Venturi Mask 12.0 05/14/19 08:00 90 05/14/19 08:00 97.9 107 18 147/73 (97) 94 05/14/19 07:32 113 18 100 Venturi Mask 14.0 55 108 18 98 05/14/19 07:22 98 Venturi Mask 14.0 55 05/14/19 04:00 98.8 103 20 122/77 (92) 98 05/14/19 04:00 Venturi Mask 12.0 05/14/19 04:00 100 05/14/19 03:19 105 20 100 Venturi Mask 14.0 55 103 20 98 05/14/19 00:00 110 05/14/19 00:00 Venturi Mask 12.0 05/14/19 00:00 98.2 106 20 123/74 (90) 96 05/13/19 23:18 107 20 100 Venturi Mask 14.0 55 105 20 99 05/13/19 23:09 98.2 05/13/19 20:00 98.2 87 20 149/81 (103) 96 05/13/19 20:00 Venturi Mask 12.0 05/13/19 19:51 96 Venturi Mask 14.0 55 05/13/19 19:48 105 20 99 Venturi Mask 14.0 55 107 20 96 05/13/19 19:43 102 05/13/19 16:00 97.8 100 20 121/80 (94) 95 05/13/19 16:00 Venturi Mask 12.0 Intake and Output 05/13/19 05/14/19 19:00 07:00 Intake Total 665.0 ml 310.0 ml Balance 665.0 ml 310.0 ml Intake Oral 500 ml 200 ml IV Total 165.0 ml 110.0 ml # Voids 5 4 Laboratory Tests 05/14/19 09:10: Arterial Blood pH 7.481H, Arterial Blood Partial Pressure CO2 33.8L, Arterial Blood Partial Pressure O2 94.0, Arterial Blood HCO3 24.7, Arterial Blood Oxygen Saturation 96.9, Arterial Blood Base Excess 1.2, Mando Test Positive 05/14/19 09:30: White Blood Count 11.8H, Red Blood Count 2.50L, Hemoglobin 7.0L, Hematocrit 21.3L, Mean Corpuscular Volume 85, Mean Corpuscular Hemoglobin 28.0, Mean Corpuscular Hemoglobin Concent 32.9, Red Cell Distribution Width 14.1, Platelet Count 300, Mean Platelet Volume 5.1L, Neutrophils (%) (Auto) , Lymphocytes (%) ( Auto) , Monocytes (%) (Auto) , Eosinophils (%) (Auto) , Basophils (%) (Auto) , Differential Total Cells Counted 100, Neutrophils % (Manual) 78H, Lymphocytes % (Manual) 15L, Monocytes % (Manual) 6, Eosinophils % (Manual) 1, Basophils % ( Manual) 0, Band Neutrophils 0, Platelet Estimate Adequate, Platelet Morphology Normal, Hypochromasia 1+, Anisocytosis 1+, Sodium Level 144, Potassium Level 3.0L, Chloride Level 107, Carbon Dioxide Level 29, Anion Gap 9, Blood Urea Nitrogen 12, Creatinine 0.9, Estimat Glomerular Filtration Rate > 60, Glucose Level 173#H, Calcium Level 7.3L, Phosphorus Level 2.0L, Magnesium Level 1.4L, Total Bilirubin 0.2, Aspartate Amino Transf (AST/SGOT) 25, Alanine Aminotransferase (ALT/SGPT) 34, Alkaline Phosphatase 44L, C-Reactive Protein, Quantitative 3.0H, Total Protein 6.1L, Albumin 2.5L, Globulin 3.6, Albumin/ Globulin Ratio 0.7L Height (Feet): 5 Height (Inches): 1.00 Weight (Pounds): 120 Objective WDWN AA woman NCAT supple CTA RR abd soft NT ND no edema Sangeeta Bianchi MD May 14, 2019 15:41
[2019-05-14] MEDS: Citalopram Hydrobromide 10mg Tab ORAL SCH (16:49)
--- NOTE | 2019-05-14 18:05 | NUR ---
TRANSFER TO FLOOR: Patient transferred to 2E Tele room 217-2, per bed awake,alert oriented in no distress. Report given to Erendira LINDSAY. Belongings purse with 10 dollar bills and medications given to receiving RN.
--- NOTE | 2019-05-14 18:05 | NUR ---
NURSE NOTES: Received report from NEFTALI Woodson in [place]. Pt brought to room 217-2 via bed, pt is awake, talkative, a/o x4, asking to eat dinner, pt is a 1:1 feeder, pt on venturi Mask 12L, blood consent not signed, RN will obtain, pt has sacral wound, RN will taken photo, pt has noted parkinsons with right arm shaking, IV running Zosyn and KPhos, no c/o pain, vitals obtain, SpO2 88%, RT contacted for treatment Rechecked SpO2 at 95% on Venturi mask 12L Fed pt and obtain consent for blood tx.
--- NOTE | 2019-05-14 19:20 | NUR ---
HAND-OFF: Report given to NEFTALI Farr.
--- NOTE | 2019-05-14 19:30 | Consultation ---
DATE OF CONSULTATION: HISTORY OF PRESENT ILLNESS: This is a 68-year-old female with a history of hyperlipidemia, Parkinson disease, depression, constipation, and diabetic mellitus, who has been admitted to the hospital for medical stabilization. The patient is presenting with anxiety and episodes of agitation. The patient is in respiratory distress. The patient has had a history of depression. PAST PSYCHIATRIC HISTORY: Depressed mood and anxiety. Has been on citalopram as well as valproic acid and Ativan. PAST MEDICAL HISTORY: As above. ALLERGIES: No known drug allergies. SUBSTANCE ABUSE HISTORY: No known history of illicit drug use or alcohol. MENTAL STATUS EXAMINATION: The patient is alert and oriented times self and place. Did not know the date. She knows she is in the hospital and her mood is anxious. Affect is constricted. Congruent with mood. Thought process is concrete. Thought content, no suicidal or homicidal ideation. Cognition is impaired. Insight and judgment is impaired. ASSESSMENT: 1. Major depressive disorder. 2. Mood disorder. PLAN: 1. The patient has been on Depakote outside of the hospital. We restored that. 2. Increased the Celexa to 20 mg in the morning. 3. Avoid prescribing benzodiazepines. Stephanie Ybarra M.D. DR: JANE JOB#: [id number] CC:
--- NOTE | 2019-05-14 20:32 | NUR ---
NURSE NOTES: Received pt from NEFTALI Jones. Pt awake, alert, and talkative. Bed in lowest position. Oxygen on. Will continue to monitor.
--- NOTE | 2019-05-14 21:49 | General Progress Note ---
Assessment/Plan Problem List: (1) Constipation ICD Codes: K59.00 - Constipation, unspecified SNOMED: 61532640 (2) Renal insufficiency ICD Codes: N28.9 - Disorder of kidney and ureter, unspecified SNOMED: 401101262, 960849515 (3) COPD exacerbation ICD Codes: J44.1 - Chronic obstructive pulmonary disease with (acute) exacerbation SNOMED: 185857584 (4) UTI (urinary tract infection) ICD Codes: N39.0 - Urinary tract infection, site not specified SNOMED: 96049635 Qualifiers: Qualified Codes: N39.0 - Urinary tract infection, site not specified (5) Hyperlipidemia associated with type 2 diabetes mellitus ICD Codes: E11.69 - Type 2 diabetes mellitus with other specified complication ; E78.5 - Hyperlipidemia, unspecified SNOMED: 099517585, 065176213155 (6) Type 2 diabetes mellitus ICD Codes: E11.9 - Type 2 diabetes mellitus without complications SNOMED: 62056997, 954760944 Qualifiers: Qualified Codes: E11.9 - Type 2 diabetes mellitus without complications (7) Azotemia ICD Codes: R79.89 - Other specified abnormal findings of blood chemistry SNOMED: 334561769 (8) Cholelithiasis ICD Codes: K80.20 - Calculus of gallbladder without cholecystitis without obstruction SNOMED: 514956894 Status: progressing Assessment/Plan: pna afebrile check sugar azotemia is improving reviewed chart and labs niddm psych Subjective ROS Limited/Unobtainable: Yes Allergies: Coded Allergies: No Known Allergies (Unverified , 11/08/15) Objective Last 24 Hour Vital Signs Date Time Temp Pulse Resp B/P (MAP) Pulse Ox O2 Delivery O2 Flow Rate FiO2 05/14/19 19:34 106 20 97 Venturi Mask 14.0 55 104 20 94 05/14/19 19:34 94 Venturi Mask 14.0 55 05/14/19 18:37 95 05/14/19 18:32 97.9 62 20 116/64 (81) 88 05/14/19 16:00 91 05/14/19 16:00 97.9 80 18 123/94 (104) 94 05/14/19 16:00 Venturi Mask 12.0 05/14/19 14:50 97 20 99 Venturi Mask 14.0 55 97 20 96 05/14/19 12:00 98.1 103 20 138/82 (100) 91 05/14/19 12:00 108 05/14/19 12:00 Venturi Mask 12.0 05/14/19 10:20 101 18 99 Venturi Mask 14.0 55 99 20 96 05/14/19 08:00 Venturi Mask 12.0 05/14/19 08:00 90 05/14/19 08:00 97.9 107 18 147/73 (97) 94 05/14/19 07:32 113 18 100 Venturi Mask 14.0 55 108 18 98 05/14/19 07:22 98 Venturi Mask 14.0 55 05/14/19 04:00 98.8 103 20 122/77 (92) 98 05/14/19 04:00 Venturi Mask 12.0 05/14/19 04:00 100 05/14/19 03:19 105 20 100 Venturi Mask 14.0 55 103 20 98 05/14/19 00:00 110 05/14/19 00:00 Venturi Mask 12.0 05/14/19 00:00 98.2 106 20 123/74 (90) 96 05/13/19 23:18 107 20 100 Venturi Mask 14.0 55 105 20 99 05/13/19 23:09 98.2 Intake and Output 05/13/19 05/14/19 19:00 07:00 Intake Total 665.0 ml 310.0 ml Balance 665.0 ml 310.0 ml Intake Oral 500 ml 200 ml IV Total 165.0 ml 110.0 ml # Voids 5 4 Laboratory Tests 05/14/19 09:10: Arterial Blood pH 7.481H, Arterial Blood Partial Pressure CO2 33.8L, Arterial Blood Partial Pressure O2 94.0, Arterial Blood HCO3 24.7, Arterial Blood Oxygen Saturation 96.9, Arterial Blood Base Excess 1.2, Mando Test Positive 05/14/19 09:30: White Blood Count 11.8H, Red Blood Count 2.50L, Hemoglobin 7.0L, Hematocrit 21.3L, Mean Corpuscular Volume 85, Mean Corpuscular Hemoglobin 28.0, Mean Corpuscular Hemoglobin Concent 32.9, Red Cell Distribution Width 14.1, Platelet Count 300, Mean Platelet Volume 5.1L, Neutrophils (%) (Auto) , Lymphocytes (%) ( Auto) , Monocytes (%) (Auto) , Eosinophils (%) (Auto) , Basophils (%) (Auto) , Differential Total Cells Counted 100, Neutrophils % (Manual) 78H, Lymphocytes % (Manual) 15L, Monocytes % (Manual) 6, Eosinophils % (Manual) 1, Basophils % ( Manual) 0, Band Neutrophils 0, Platelet Estimate Adequate, Platelet Morphology Normal, Hypochromasia 1+, Anisocytosis 1+, Sodium Level 144, Potassium Level 3.0L, Chloride Level 107, Carbon Dioxide Level 29, Anion Gap 9, Blood Urea Nitrogen 12, Creatinine 0.9, Estimat Glomerular Filtration Rate > 60, Glucose Level 173#H, Calcium Level 7.3L, Phosphorus Level 2.0L, Magnesium Level 1.4L, Total Bilirubin 0.2, Aspartate Amino Transf (AST/SGOT) 25, Alanine Aminotransferase (ALT/SGPT) 34, Alkaline Phosphatase 44L, C-Reactive Protein, Quantitative 3.0H, Total Protein 6.1L, Albumin 2.5L, Globulin 3.6, Albumin/ Globulin Ratio 0.7L Height (Feet): 5 Height (Inches): 1.00 Weight (Pounds): 120 Cardiovascular: normal rate Respiratory/Chest: lungs clear Amelie Rios MD May 14, 2019 21:49
[2019-05-14] MEDS: Iron Sucrose 100 MG in NS 55 ML IV SCH (21:57)
[2019-05-14] MEDS: Levemir Flexpen SUBQ SCH (21:58)
[2019-05-14] MEDS: Valproic Acid 250mg/5ml Liquid NG SCH (21:59)
[2019-05-15] VITALS: BP 121/77
[2019-05-15] MEDS: Piperacillin/Tazobactam 3.375 GM in NS 110 ML IVPB SCH ×3 (00:16→17:23)
[2019-05-15] MEDS: Albuterol/Ipratropium 3ml neb HHN SCH ×6 (03:13→22:56)
[2019-05-15 04:00] VITALS: BP 130/69
[2019-05-15] MEDS: Nateglinide 60mg tab ORAL SCH ×3 (06:52→16:30)
[2019-05-15] MEDS: NovoLOG Insulin Flexpen SUBQ SCH ×4 (06:55→21:33)
[2019-05-15 07:26] LABS: BASOPHILS % (AUTO) 0.8 % (0.0-2.0); EOSINOPHILS % (AUTO) 1.2 % (0.0-3.0); HEMATOCRIT 23.8 % (37.0-47.0); HEMOGLOBIN 8.1 G/DL (12.0-16.0); LYMPHOCYTES % (AUTO) 19.4 % (20.0-45.0); MEAN CORPUSCULAR VOLUME 85 FL (80-99); MONOCYTES % (AUTO) 9.2 % (1.0-10.0); NEUTROPHILS % (AUTO) 69.4 % (45.0-75.0); PLATELET COUNT 262 K/UL (150-450); RED CELL DISTRIBUTION WIDTH 13.9 % (11.6-14.8); WHITE BLOOD COUNT 10.7 K/UL (4.8-10.8)
[2019-05-15 07:38] LABS: ALANINE AMINOTRANSFERASE 26 U/L (12-78); ALBUMIN 2.3 G/DL (3.4-5.0); ALBUMIN/GLOBULIN RATIO 0.6 (1.0-2.7); ALKALINE PHOSPHATASE 44 U/L (46-116); ANION GAP 8 mmol/L (5-15); ASPARTATE AMINO TRANSFERASE 25 U/L (15-37); BILIRUBIN,TOTAL 0.3 MG/DL (0.2-1.0); BLOOD UREA NITROGEN 10 mg/dL (7-18); CALCIUM 7.6 MG/DL (8.5-10.1); CARBON DIOXIDE 27 MMOL/L (21-32); CHLORIDE 106 MMOL/L (98-107); CREATININE 0.8 MG/DL (0.55-1.30); PHOSPHORUS 2.7 MG/DL (2.5-4.9); SODIUM 141 MMOL/L (136-145)
--- NOTE | 2019-05-15 07:44 | NUR ---
HAND-OFF: Report given to NEFATLI Kirby. Pt stable.
--- NOTE | 2019-05-15 07:45 | NUR ---
NURSE NOTES: Nurse report given by NEFTALI Farr. Patient's sleeping in bed but easily awake, eyes open spontaneously, AO x 3, denies pain, no s/s of distress or SOB, ion 12L Venturi mask, breathing nonlabored. Bed low and locked, call light within reach, side rails x 3, bed alarm is armed. IV is saline locked, patent and asymptomatic. Will continue to montior.
[2019-05-15 08:00] VITALS: BP 141/80
[2019-05-15] MEDS: Valproic Acid 250mg/5ml Liquid NG SCH ×2 (08:34→21:29)
[2019-05-15] MEDS: Citalopram Hydrobromide 10mg Tab ORAL SCH (08:35)
--- NOTE | 2019-05-15 09:26 | Pulmonology Progress Note ---
Assessment/Plan Assessment/Plan Pulmonary Progress Note HPI: The patient is a 68 year old woman, [facility] resident with past medical history of Parkinsons Disease, focal weakness, Diabetes, Mood Disorder, Seizure History, Hyperlipidemia, Constipation admitted with UTI/sepsis, noted to be hypotensive on admission, have significantly elevated Lactic Acid Levels, Positive Urine Ketones, Acute Renal Insufficiency, Anemia. The patient has been having fevers, vomiting for two days, had c/o abdominal pain and diarrhea for two days [employer]. No rectal bleeding noted. No shortness of breath, orthopnea [employer]. No wheezing, cough or chest pain [employer]. Admission EKG note LA enlargement, worsening SOB since admission despite use HHN. BP improved with IV fluids, being diuresed PRN. ABG improved, Glucose improved on ISS PAST MEDICAL HISTORY: Parkinsons Disease, focal weakness, Diabetes, Mood Disorder, Depression, Seizure History, Hyperlipidemia, Constipation, Anemia PAST SURGICAL HISTORY: Tubal ligation. SOCIAL HISTORY: No history of smoking. Denies history of drug or alcohol abuse. ALLERGIES: No known allergies. MEDICATIONS: [employer]: Lipitor, bisacodyl, citalopram, Colace, ferrous sulfate, Lasix, insulin, metformin. On antibiotics per ID, HHN, O2 PRN, ISS FAMILY HISTORY: Noncontributory. REVIEW OF SYSTEMS: Negative aside from above PHYSICAL EXAMINATION: VITAL SIGNS NOTED HEENT: NCAT, moist mm. NECK: No lymphadenopathy, no masses CHEST: Basal crackles, occasional rhonchi. CARDIOVASCULAR: Regular rate and rhythm. No murmurs or extra sounds. GASTROINTESTINAL: Soft, nontender, nondistended. No organomegaly. EXTREMITIES: Mild edema. 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: Priented, tremor, right arm weaker than left, no seizures, sensation intact ASSESSMENT: Sepsis, vomiting, and diarrhea UTI, possible Pneumonia Constipation Parkinsons Disease Previous h/o focal weakness Diabetes Anemia Mood Disorder - Depression Seizure History Hyperlipidemia PLAN: - Diurese PRN - HHN - O2 PRN - Echocardiogram - PPX - Antibiotics per ID - [employer] Medications - Lantus/ISS given hyperglycemia, Increased AG and Ketones - BiPAP PRN and QHS - ST evaluation of swallow - GI following - Monitor labs/ABG PRN - Heme following for anemia EKG: LA enlargement CXR: No acute disease initially, currently: extensive bilateral interstitial and airspace disease, likely pneumonia although edema also possibility. Suspect small left and possible trace right pleural effusions KUB: Normal LE Dupplex: Negative BC : Negative UA: Positive for UTI NPA: >2400 Subjective ROS Limited/Unobtainable: No Allergies: Coded Allergies: No Known Allergies (Unverified , 11/08/15) Objective Last 24 Hour Vital Signs Date Time Temp Pulse Resp B/P (MAP) Pulse Ox O2 Delivery O2 Flow Rate FiO2 05/15/19 08:00 97.7 95 19 141/80 (100) 97 05/15/19 07:44 96 Venturi Mask 14.0 55 05/15/19 04:00 105 05/15/19 04:00 97.9 89 18 130/69 (89) 97 05/15/19 03:13 107 20 95 Venturi Mask 14.0 55 105 20 92 05/15/19 00:00 97.0 98 18 121/77 (92) 98 05/14/19 22:55 105 20 96 Venturi Mask 14.0 55 103 20 93 05/14/19 21:00 Venturi Mask 12.0 05/14/19 20:00 100 05/14/19 20:00 97.9 105 19 118/68 (85) 97 05/14/19 19:34 106 20 97 Venturi Mask 14.0 55 104 20 94 05/14/19 19:34 94 Venturi Mask 14.0 55 05/14/19 18:37 95 05/14/19 18:32 97.9 62 20 116/64 (81) 88 05/14/19 16:00 91 05/14/19 16:00 97.9 80 18 123/94 (104) 94 05/14/19 16:00 Venturi Mask 12.0 05/14/19 14:50 97 20 99 Venturi Mask 14.0 55 97 20 96 05/14/19 12:00 98.1 103 20 138/82 (100) 91 05/14/19 12:00 108 05/14/19 12:00 Venturi Mask 12.0 05/14/19 10:20 101 18 99 Venturi Mask 14.0 55 99 20 96 Intake and Output 05/14/19 05/15/19 19:00 07:00 Intake Total 600 ml Balance 600 ml Intake Oral 600 ml # Voids 3 2 Microbiology Date/Time Source Procedure Growth Status 05/15/19 03:10 Nasal Nares - Final Complete 05/15/19 03:10 Nasal Nares - Final Complete Laboratory Tests 05/14/19 09:30: White Blood Count 11.8H, Red Blood Count 2.50L, Hemoglobin 7.0L, Hematocrit 21.3L, Mean Corpuscular Volume 85, Mean Corpuscular Hemoglobin 28.0, Mean Corpuscular Hemoglobin Concent 32.9, Red Cell Distribution Width 14.1, Platelet Count 300, Mean Platelet Volume 5.1L, Neutrophils (%) (Auto) , Lymphocytes (%) ( Auto) , Monocytes (%) (Auto) , Eosinophils (%) (Auto) , Basophils (%) (Auto) , Differential Total Cells Counted 100, Neutrophils % (Manual) 78H, Lymphocytes % (Manual) 15L, Monocytes % (Manual) 6, Eosinophils % (Manual) 1, Basophils % ( Manual) 0, Band Neutrophils 0, Platelet Estimate Adequate, Platelet Morphology Normal, Hypochromasia 1+, Anisocytosis 1+, Sodium Level 144, Potassium Level 3.0L, Chloride Level 107, Carbon Dioxide Level 29, Anion Gap 9, Blood Urea Nitrogen 12, Creatinine 0.9, Estimat Glomerular Filtration Rate > 60, Glucose Level 173#H, Calcium Level 7.3L, Phosphorus Level 2.0L, Magnesium Level 1.4L, Total Bilirubin 0.2, Aspartate Amino Transf (AST/SGOT) 25, Alanine Aminotransferase (ALT/SGPT) 34, Alkaline Phosphatase 44L, C-Reactive Protein, Quantitative 3.0H, Total Protein 6.1L, Albumin 2.5L, Globulin 3.6, Albumin/ Globulin Ratio 0.7L 05/15/19 06:40: White Blood Count 10.7, Red Blood Count 2.80L, Hemoglobin 8.1L, Hematocrit 23.8L , Mean Corpuscular Volume 85, Mean Corpuscular Hemoglobin 28.8, Mean Corpuscular Hemoglobin Concent 33.9, Red Cell Distribution Width 13.9, Platelet Count 262, Mean Platelet Volume 5.6L, Neutrophils (%) (Auto) 69.4, Lymphocytes ( %) (Auto) 19.4L, Monocytes (%) (Auto) 9.2, Eosinophils (%) (Auto) 1.2, Basophils (%) (Auto) 0.8, Sodium Level 141, Potassium Level 3.0L, Chloride Level 106, Carbon Dioxide Level 27, Anion Gap 8, Blood Urea Nitrogen 10, Creatinine 0.8, Estimat Glomerular Filtration Rate > 60, Glucose Level 180H, Calcium Level 7.6L, Phosphorus Level 2.7, Magnesium Level 1.9, Total Bilirubin 0.3, Aspartate Amino Transf (AST/SGOT) 25, Alanine Aminotransferase (ALT/SGPT) 26, Alkaline Phosphatase 44L, C-Reactive Protein, Quantitative 5.1H, Total Protein 5.9L, Albumin 2.3L, Globulin 3.6, Albumin/Globulin Ratio 0.6L, Uric Acid 3.4, Pro-B-Type Natriuretic Peptide 9065H Current Medications Medications (Trade) Dose Ordered Sig/Tenzin Route PRN Reason Start Time Stop Time Status Last Admin Dose Admin Albuterol/ Ipratropium (Albuterol/ Ipratropium) 3 ml Q4H PRN HHN Shortness of Breath 05/13/19 09:00 05/18/19 08:59 05/13/19 09:18 Albuterol/ Ipratropium (Albuterol/ Ipratropium) 3 ml Q4HRT HHN 05/13/19 11:00 05/18/19 10:59 05/15/19 03:13 Citalopram Hydrobromide (celeXA) 20 mg DAILY ORAL 05/14/19 15:30 06/13/19 15:29 05/15/19 08:35 Dextrose (Dextrose 50%) 25 ml Q30M PRN IV Hypoglycemia 05/13/19 22:00 06/12/19 21:59 Dextrose (Dextrose 50%) 50 ml Q30M PRN IV Hypoglycemia 05/13/19 22:00 06/12/19 21:59 Insulin Aspart (NovoLOG) BEFORE MEALS AND HS SUBQ 05/14/19 06:30 06/13/19 06:29 05/15/19 06:55 Insulin Detemir (Levemir) 10 units Q24H SUBQ 05/13/19 22:00 06/12/19 21:59 05/14/19 21:58 Iron Sucrose 100 mg/Sodium Chloride 60 ml @ 240 mls/hr BEDTIME IV 05/14/19 21:00 05/18/19 21:14 05/14/19 21:57 Morphine Sulfate (Morphine Sulfate) 1 mg Q6H PRN IVP For Pain 05/13/19 09:30 05/20/19 09:29 05/13/19 22:39 Nateglinide (Starlix) 60 mg TIAC ORAL 05/13/19 11:30 06/12/19 11:29 05/15/19 06:52 Ondansetron HCl (Zofran) 4 mg Q6H PRN IVP Nausea & Vomiting 05/12/19 09:45 06/11/19 09:44 Pantoprazole (Protonix) 40 mg BID ORAL 05/13/19 18:00 06/13/19 08:59 05/15/19 08:34 Piperacillin Sod/ Tazobactam Sod 3.375 gm/Sodium Chloride 110 ml @ 27.5 mls/hr Q8H IVPB 05/12/19 16:00 05/19/19 15:59 05/15/19 08:35 Sodium Chloride 550 ml @ 0 mls/hr Q0M IV 05/12/19 14:00 06/11/19 13:59 Valproic Acid (Depakene) 125 mg EVERY 12 HOURS NG 05/14/19 21:00 06/13/19 20:59 05/15/19 08:34 Walker Blank MD May 15, 2019 09:26
[2019-05-15 12:00] VITALS: BP 126/84
--- NOTE | 2019-05-15 12:41 | Nephrology Progress Note ---
Assessment/Plan Problem List: (1) Azotemia (2) Type 2 diabetes mellitus (3) Elevated lactic acid level (4) COPD exacerbation Assessment Renal failure COPD Acute- dehydration , ? CKD underlying UTI , High Lactic HyperKalemia DM Anemia DNR Plan correct mag and K and Phos- ABG noted 2D echo pending DC Hydrate- Pulm toilet Anemia castro PO protonix Monitor renal parameters Subjective ROS Limited/Unobtainable: No Constitutional: Reports: malaise, weakness Objective Objective Last 24 Hour Vital Signs Date Time Temp Pulse Resp B/P (MAP) Pulse Ox O2 Delivery O2 Flow Rate FiO2 05/15/19 11:07 113 20 94 Venturi Mask 14.0 55 103 22 93 05/15/19 09:00 Venturi Mask 12.0 05/15/19 08:00 90 05/15/19 08:00 97.7 95 19 141/80 (100) 97 05/15/19 07:44 96 Venturi Mask 14.0 55 05/15/19 04:00 105 05/15/19 04:00 97.9 89 18 130/69 (89) 97 05/15/19 03:13 107 20 95 Venturi Mask 14.0 55 105 20 92 05/15/19 00:00 97.0 98 18 121/77 (92) 98 05/14/19 22:55 105 20 96 Venturi Mask 14.0 55 103 20 93 05/14/19 21:00 Venturi Mask 12.0 05/14/19 20:00 100 05/14/19 20:00 97.9 105 19 118/68 (85) 97 05/14/19 19:34 106 20 97 Venturi Mask 14.0 55 104 20 94 05/14/19 19:34 94 Venturi Mask 14.0 55 05/14/19 18:37 95 05/14/19 18:32 97.9 62 20 116/64 (81) 88 05/14/19 16:00 91 05/14/19 16:00 97.9 80 18 123/94 (104) 94 05/14/19 16:00 Venturi Mask 12.0 05/14/19 14:50 97 20 99 Venturi Mask 14.0 55 97 20 96 Intake and Output 05/14/19 05/15/19 19:00 07:00 Intake Total 600 ml Balance 600 ml Intake Oral 600 ml # Voids 3 2 Laboratory Tests 05/15/19 06:40: White Blood Count 10.7, Red Blood Count 2.80L, Hemoglobin 8.1L, Hematocrit 23.8L , Mean Corpuscular Volume 85, Mean Corpuscular Hemoglobin 28.8, Mean Corpuscular Hemoglobin Concent 33.9, Red Cell Distribution Width 13.9, Platelet Count 262, Mean Platelet Volume 5.6L, Neutrophils (%) (Auto) 69.4, Lymphocytes ( %) (Auto) 19.4L, Monocytes (%) (Auto) 9.2, Eosinophils (%) (Auto) 1.2, Basophils (%) (Auto) 0.8, Sodium Level 141, Potassium Level 3.0L, Chloride Level 106, Carbon Dioxide Level 27, Anion Gap 8, Blood Urea Nitrogen 10, Creatinine 0.8, Estimat Glomerular Filtration Rate > 60, Glucose Level 180H, Uric Acid 3.4, Calcium Level 7.6L, Phosphorus Level 2.7, Magnesium Level 1.9, Total Bilirubin 0.3, Aspartate Amino Transf (AST/SGOT) 25, Alanine Aminotransferase (ALT/SGPT) 26, Alkaline Phosphatase 44L, C-Reactive Protein, Quantitative 5.1H, Pro-B-Type Natriuretic Peptide 9065H, Total Protein 5.9L, Albumin 2.3L, Globulin 3.6, Albumin/Globulin Ratio 0.6L Height (Feet): 5 Height (Inches): 1.00 Weight (Pounds): 120 General Appearance: no apparent distress Cardiovascular: tachycardia Respiratory/Chest: decreased breath sounds Abdomen: soft José Miguel Calvert MD May 15, 2019 12:40
[2019-05-15] MEDS: Docusate 100mg cap ORAL SCH ×2 (13:00→17:22)
[2019-05-15] MEDS ORDERED: Tubing Blood Filter IV ONE (14:13)
[2019-05-15] MEDS ORDERED: D5W 275ml ONE (14:13)
[2019-05-15] MEDS ORDERED: Tubing IV Secondary IV ONE (14:13)
[2019-05-15 16:00] VITALS: BP 133/77
--- NOTE | 2019-05-15 16:51 | General Progress Note ---
Assessment/Plan Status: progressing Assessment/Plan: Assessment - N/V - resolved - Sepsis - improved - lactic acidosis - improved - Renal failure - RAD Recommendations - Abx - IVF - po pureed - follow labs - Check OB Subjective Allergies: Coded Allergies: No Known Allergies (Unverified , 11/08/15) Subjective Feels OK tolerating PO c/o some SOB RT called Objective Last 24 Hour Vital Signs Date Time Temp Pulse Resp B/P (MAP) Pulse Ox O2 Delivery O2 Flow Rate FiO2 05/15/19 15:55 114 22 95 Venturi Mask 14.0 55 102 22 92 05/15/19 12:00 99 05/15/19 12:00 97.7 102 21 126/84 (98) 94 05/15/19 11:07 113 20 94 Venturi Mask 14.0 55 103 22 93 05/15/19 09:00 Venturi Mask 12.0 05/15/19 08:00 90 05/15/19 08:00 97.7 95 19 141/80 (100) 97 05/15/19 07:44 96 Venturi Mask 14.0 55 05/15/19 04:00 105 05/15/19 04:00 97.9 89 18 130/69 (89) 97 05/15/19 03:13 107 20 95 Venturi Mask 14.0 55 105 20 92 05/15/19 00:00 97.0 98 18 121/77 (92) 98 05/14/19 22:55 105 20 96 Venturi Mask 14.0 55 103 20 93 05/14/19 21:00 Venturi Mask 12.0 05/14/19 20:00 100 05/14/19 20:00 97.9 105 19 118/68 (85) 97 05/14/19 19:34 106 20 97 Venturi Mask 14.0 55 104 20 94 05/14/19 19:34 94 Venturi Mask 14.0 55 05/14/19 18:37 95 05/14/19 18:32 97.9 62 20 116/64 (81) 88 Intake and Output 05/14/19 05/15/19 19:00 07:00 Intake Total 600 ml Balance 600 ml Intake Oral 600 ml # Voids 3 2 Laboratory Tests 05/15/19 06:40: White Blood Count 10.7, Red Blood Count 2.80L, Hemoglobin 8.1L, Hematocrit 23.8L , Mean Corpuscular Volume 85, Mean Corpuscular Hemoglobin 28.8, Mean Corpuscular Hemoglobin Concent 33.9, Red Cell Distribution Width 13.9, Platelet Count 262, Mean Platelet Volume 5.6L, Neutrophils (%) (Auto) 69.4, Lymphocytes ( %) (Auto) 19.4L, Monocytes (%) (Auto) 9.2, Eosinophils (%) (Auto) 1.2, Basophils (%) (Auto) 0.8, Sodium Level 141, Potassium Level 3.0L, Chloride Level 106, Carbon Dioxide Level 27, Anion Gap 8, Blood Urea Nitrogen 10, Creatinine 0.8, Estimat Glomerular Filtration Rate > 60, Glucose Level 180H, Uric Acid 3.4, Calcium Level 7.6L, Phosphorus Level 2.7, Magnesium Level 1.9, Total Bilirubin 0.3, Aspartate Amino Transf (AST/SGOT) 25, Alanine Aminotransferase (ALT/SGPT) 26, Alkaline Phosphatase 44L, C-Reactive Protein, Quantitative 5.1H, Pro-B-Type Natriuretic Peptide 9065H, Total Protein 5.9L, Albumin 2.3L, Globulin 3.6, Albumin/Globulin Ratio 0.6L Height (Feet): 5 Height (Inches): 1.00 Weight (Pounds): 120 Objective WDWN AA woman NCAT supple Chest - some ronchi and wheeze RR abd soft NT ND no edema Sangeeta Bianchi MD May 15, 2019 16:51
--- NOTE | 2019-05-15 19:34 | NUR ---
HAND-OFF: Report given to NEFTALI Meadows. Patient's stable, plan of care endorsed.
--- NOTE | 2019-05-15 19:45 | NUR ---
NURSE NOTES: Received report from NEFTALI Kirby. Patient is awake lying semi-barrett's; resting comfortably. No signs of acute distress noted; complains of pain. On 12L Venturi Mask saturating at 98%. AOx4; able to make needs known. Checked IV site; patent and flushed. No erythema, bleeding, or infiltration noted. Bed at lowest position, brakes on, siderails up x3. Call light within reach. Will continue to monitor.
[2019-05-15 20:00] VITALS: BP 115/65
[2019-05-15] MEDS: Morphine Sulfate 2mg/ml Inj(IV/IM USE ONLY) IVP PRN (21:29)
[2019-05-15] MEDS: Iron Sucrose 100 MG in NS 55 ML IV SCH (21:29)
[2019-05-15] MEDS: Levemir Flexpen SUBQ SCH (21:33)
--- NOTE | 2019-05-15 22:26 | General Progress Note ---
Assessment/Plan Problem List: (1) Constipation ICD Codes: K59.00 - Constipation, unspecified SNOMED: 49655694 (2) Renal insufficiency ICD Codes: N28.9 - Disorder of kidney and ureter, unspecified SNOMED: 184242985, 525581098 (3) COPD exacerbation ICD Codes: J44.1 - Chronic obstructive pulmonary disease with (acute) exacerbation SNOMED: 743788841 (4) UTI (urinary tract infection) ICD Codes: N39.0 - Urinary tract infection, site not specified SNOMED: 33284160 Qualifiers: Qualified Codes: N39.0 - Urinary tract infection, site not specified (5) Hyperlipidemia associated with type 2 diabetes mellitus ICD Codes: E11.69 - Type 2 diabetes mellitus with other specified complication ; E78.5 - Hyperlipidemia, unspecified SNOMED: 722452500, 749131578565 (6) Type 2 diabetes mellitus ICD Codes: E11.9 - Type 2 diabetes mellitus without complications SNOMED: 78655865, 455847880 Qualifiers: Qualified Codes: E11.9 - Type 2 diabetes mellitus without complications (7) Azotemia ICD Codes: R79.89 - Other specified abnormal findings of blood chemistry SNOMED: 106831520 (8) Cholelithiasis ICD Codes: K80.20 - Calculus of gallbladder without cholecystitis without obstruction SNOMED: 246065498 Status: progressing Assessment/Plan: no vomitting afebrile clinically improvng azotemia is improving reviewed chart and labs niddm psych Subjective ROS Limited/Unobtainable: Yes Allergies: Coded Allergies: No Known Allergies (Unverified , 11/08/15) Objective Last 24 Hour Vital Signs Date Time Temp Pulse Resp B/P (MAP) Pulse Ox O2 Delivery O2 Flow Rate FiO2 05/15/19 19:58 94 Venturi Mask 14.0 55 05/15/19 19:58 108 22 97 Venturi Mask 14.0 55 105 22 94 05/15/19 16:00 110 05/15/19 16:00 97.3 109 21 133/77 (95) 93 05/15/19 15:55 114 22 95 Venturi Mask 14.0 55 102 22 92 05/15/19 12:00 99 05/15/19 12:00 97.7 102 21 126/84 (98) 94 05/15/19 11:07 113 20 94 Venturi Mask 14.0 55 103 22 93 05/15/19 09:00 Venturi Mask 12.0 05/15/19 08:00 90 05/15/19 08:00 97.7 95 19 141/80 (100) 97 05/15/19 07:44 96 Venturi Mask 14.0 55 05/15/19 04:00 105 05/15/19 04:00 97.9 89 18 130/69 (89) 97 05/15/19 03:13 107 20 95 Venturi Mask 14.0 55 105 20 92 05/15/19 00:00 97.0 98 18 121/77 (92) 98 05/14/19 22:55 105 20 96 Venturi Mask 14.0 55 103 20 93 Intake and Output 05/14/19 05/15/19 19:00 07:00 Intake Total 600 ml Balance 600 ml Intake Oral 600 ml # Voids 3 2 Laboratory Tests 05/15/19 06:40: White Blood Count 10.7, Red Blood Count 2.80L, Hemoglobin 8.1L, Hematocrit 23.8L , Mean Corpuscular Volume 85, Mean Corpuscular Hemoglobin 28.8, Mean Corpuscular Hemoglobin Concent 33.9, Red Cell Distribution Width 13.9, Platelet Count 262, Mean Platelet Volume 5.6L, Neutrophils (%) (Auto) 69.4, Lymphocytes ( %) (Auto) 19.4L, Monocytes (%) (Auto) 9.2, Eosinophils (%) (Auto) 1.2, Basophils (%) (Auto) 0.8, Sodium Level 141, Potassium Level 3.0L, Chloride Level 106, Carbon Dioxide Level 27, Anion Gap 8, Blood Urea Nitrogen 10, Creatinine 0.8, Estimat Glomerular Filtration Rate > 60, Glucose Level 180H, Uric Acid 3.4, Calcium Level 7.6L, Phosphorus Level 2.7, Magnesium Level 1.9, Total Bilirubin 0.3, Aspartate Amino Transf (AST/SGOT) 25, Alanine Aminotransferase (ALT/SGPT) 26, Alkaline Phosphatase 44L, C-Reactive Protein, Quantitative 5.1H, Pro-B-Type Natriuretic Peptide 9065H, Total Protein 5.9L, Albumin 2.3L, Globulin 3.6, Albumin/Globulin Ratio 0.6L Height (Feet): 5 Height (Inches): 1.00 Weight (Pounds): 120 Cardiovascular: normal rate Respiratory/Chest: lungs clear Abdomen: soft Amelie Rios MD May 15, 2019 22:26
[2019-05-16] VITALS: BP 113/72
[2019-05-16] MEDS: Piperacillin/Tazobactam 3.375 GM in NS 110 ML IVPB SCH ×3 (00:43→16:16)
[2019-05-16] MEDS: Albuterol/Ipratropium 3ml neb HHN SCH ×7 (02:22→23:48)
[2019-05-16 04:00] VITALS: BP 127/76
--- NOTE | 2019-05-16 04:43 | NUR ---
NURSE NOTES: Patient is asleep lying semi-barrett's; resting comfortably. No signs of acute distress or pain noted at this time. On 12L Venturi Mask.
[2019-05-16] MEDS: NovoLOG Insulin Flexpen SUBQ SCH ×4 (06:10→22:03)
[2019-05-16] MEDS: Nateglinide 60mg tab ORAL SCH ×3 (06:10→17:30)
--- NOTE | 2019-05-16 07:29 | NUR ---
HAND-OFF: Report given to NEFTALI Trujillo. Patient is awake lying semi-barrett's; resting comfortably. On 12L Venturi Mask. In stable condition.
--- NOTE | 2019-05-16 07:35 | NUR ---
NURSE NOTES: Received pt in bed, AAO x 4. On ventury mask 12L. No c/o of pain/distress at this moment. IV on L hand 24g noted. Side rails x 2. Bed in the lowest, locked, and alarm on. Call light within reach. Will continue to monitor
[2019-05-16 08:00] VITALS: BP 124/77
[2019-05-16] MEDS: Docusate 100mg cap ORAL SCH ×3 (08:15→16:56)
[2019-05-16] MEDS: Citalopram Hydrobromide 10mg Tab ORAL SCH (08:15)
[2019-05-16] MEDS: Valproic Acid 250mg/5ml Liquid NG SCH ×2 (08:16→22:04)
[2019-05-16] MEDS ORDERED: Tubing IV Secondary IV ONE (10:04)
--- NOTE | 2019-05-16 10:46 | Pulmonology Progress Note ---
Assessment/Plan Assessment/Plan Pulmonary Progress Note HPI: The patient is a 68 year old woman, Residential resident with past medical history of Parkinsons Disease, focal weakness, Diabetes, Mood Disorder, Seizure History, Hyperlipidemia, Constipation admitted with UTI/sepsis, noted to be hypotensive on admission, have significantly elevated Lactic Acid Levels, Positive Urine Ketones, Acute Renal Insufficiency, Anemia. 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 No rectal bleeding noted. 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 Admission EKG note LA enlargement, worsening SOB since admission despite use HHN. BP improved with IV fluids, being diuresed PRN. ABG improved, Glucose improved on ISS PAST MEDICAL HISTORY: Parkinsons Disease, focal weakness, Diabetes, Mood Disorder, Depression, Seizure History, Hyperlipidemia, Constipation, Anemia PAST SURGICAL HISTORY: Tubal ligation. SOCIAL HISTORY: No history of smoking. Denies history of drug or alcohol abuse. ALLERGIES: No known allergies. 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 On antibiotics per ID, HHN, O2 PRN, ISS FAMILY HISTORY: Noncontributory. REVIEW OF SYSTEMS: Negative aside from above PHYSICAL EXAMINATION: VITAL SIGNS NOTED HEENT: NCAT, moist mm. NECK: No lymphadenopathy, no masses CHEST: Basal crackles, occasional rhonchi. CARDIOVASCULAR: Regular rate and rhythm. No murmurs or extra sounds. GASTROINTESTINAL: Soft, nontender, nondistended. No organomegaly. EXTREMITIES: Mild edema. 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: Priented, tremor, right arm weaker than left, no seizures, sensation intact ASSESSMENT: Sepsis, vomiting, and diarrhea UTI, possible Pneumonia Constipation Parkinsons Disease Previous h/o focal weakness Diabetes Anemia Mood Disorder - Depression Seizure History Hyperlipidemia PLAN: - Diurese PRN - HHN - O2 PRN - Echocardiogram - PPX - Antibiotics per ID - FIELD REPRESENTATIVE/HEALTH EDUCATION Medications - Lantus/ISS given hyperglycemia, Increased AG and Ketones - BiPAP PRN and QHS - ST evaluation of swallow - GI following - Monitor labs/ABG PRN - Heme following for anemia EKG: LA enlargement CXR: No acute disease initially, currently: extensive bilateral interstitial and airspace disease, likely pneumonia although edema also possibility. Suspect small left and possible trace right pleural effusions KUB: Normal LE Dupplex: Negative BC : Negative UA: Positive for UTI NPA: >2400 Subjective ROS Limited/Unobtainable: No Allergies: Coded Allergies: No Known Allergies (Unverified , 11/08/15) Objective Last 24 Hour Vital Signs Date Time Temp Pulse Resp B/P (MAP) Pulse Ox O2 Delivery O2 Flow Rate FiO2 05/16/19 09:36 107 20 97 Venturi Mask 14.0 55 98 22 94 05/16/19 08:27 Venturi Mask 12.0 05/16/19 08:00 97.7 88 19 124/77 (93) 99 05/16/19 08:00 96 05/16/19 06:58 88 16 97 Venturi Mask 14.0 55 90 18 96 05/16/19 06:58 96 Venturi Mask 14.0 55 05/16/19 04:00 90 05/16/19 04:00 97.0 99 20 127/76 (93) 97 05/16/19 02:22 90 18 99 Venturi Mask 14.0 55 94 18 97 05/16/19 00:00 98.9 98 20 113/72 (86) 98 05/16/19 00:00 93 05/15/19 22:56 103 20 98 Venturi Mask 14.0 55 101 20 95 05/15/19 21:00 Venturi Mask 12.0 05/15/19 20:00 99.1 105 20 115/65 (82) 98 05/15/19 20:00 102 05/15/19 19:58 94 Venturi Mask 14.0 55 05/15/19 19:58 108 22 97 Venturi Mask 14.0 55 105 22 94 05/15/19 16:00 110 05/15/19 16:00 97.3 109 21 133/77 (95) 93 05/15/19 15:55 114 22 95 Venturi Mask 14.0 55 102 22 92 05/15/19 12:00 99 05/15/19 12:00 97.7 102 21 126/84 (98) 94 05/15/19 11:07 113 20 94 Venturi Mask 14.0 55 103 22 93 Intake and Output 05/15/19 05/16/19 19:00 07:00 Intake Total 200 ml 170.0 ml Balance 200 ml 170.0 ml Intake Oral 200 ml IV Total 170.0 ml # Voids 1 2 Microbiology Date/Time Source Procedure Growth Status 05/15/19 03:10 Nasal Nares - Final Complete 05/15/19 03:10 Nasal Nares - Final Complete Current Medications Medications (Trade) Dose Ordered Sig/Tenzin Route PRN Reason Start Time Stop Time Status Last Admin Dose Admin Albuterol/ Ipratropium (Albuterol/ Ipratropium) 3 ml Q4H PRN HHN Shortness of Breath 05/13/19 09:00 05/18/19 08:59 05/13/19 09:18 Albuterol/ Ipratropium (Albuterol/ Ipratropium) 3 ml Q4HRT HHN 05/13/19 11:00 05/18/19 10:59 05/16/19 09:36 Citalopram Hydrobromide (celeXA) 20 mg DAILY ORAL 05/14/19 15:30 06/13/19 15:29 05/16/19 08:15 Dextrose (Dextrose 50%) 25 ml Q30M PRN IV Hypoglycemia 05/13/19 22:00 06/12/19 21:59 Dextrose (Dextrose 50%) 50 ml Q30M PRN IV Hypoglycemia 05/13/19 22:00 06/12/19 21:59 Docusate Sodium (Colace) 100 mg THREE TIMES A DAY ORAL 05/15/19 13:00 06/14/19 12:59 05/16/19 08:15 Insulin Aspart (NovoLOG) BEFORE MEALS AND HS SUBQ 05/14/19 06:30 06/13/19 06:29 05/16/19 06:10 Insulin Detemir (Levemir) 10 units Q24H SUBQ 05/13/19 22:00 06/12/19 21:59 05/15/19 21:33 Iron Sucrose 100 mg/Sodium Chloride 60 ml @ 240 mls/hr BEDTIME IV 05/14/19 21:00 05/18/19 21:14 05/15/19 21:29 Morphine Sulfate (Morphine Sulfate) 1 mg Q6H PRN IVP For Pain 05/13/19 09:30 05/20/19 09:29 05/15/19 21:29 Nateglinide (Starlix) 60 mg TIAC ORAL 05/13/19 11:30 06/12/19 11:29 05/16/19 06:10 Ondansetron HCl (Zofran) 4 mg Q6H PRN IVP Nausea & Vomiting 05/12/19 09:45 06/11/19 09:44 Pantoprazole (Protonix) 40 mg BID ORAL 05/13/19 18:00 06/13/19 08:59 05/16/19 08:16 Piperacillin Sod/ Tazobactam Sod 3.375 gm/Sodium Chloride 110 ml @ 27.5 mls/hr Q8H IVPB 05/12/19 16:00 05/19/19 15:59 05/16/19 08:15 Potassium Chloride (K-Dur) 40 meq TWICE A DAY ORAL 05/15/19 11:30 06/14/19 11:29 05/16/19 08:16 Sodium Chloride 550 ml @ 0 mls/hr Q0M IV 05/12/19 14:00 06/11/19 13:59 Valproic Acid (Depakene) 125 mg EVERY 12 HOURS NG 05/14/19 21:00 06/13/19 20:59 05/16/19 08:16 Walker Blank MD May 16, 2019 10:46
[2019-05-16] MEDS: Albuterol/Ipratropium 3ml neb HHN PRN (11:44)
--- NOTE | 2019-05-16 11:58 | Nephrology Progress Note ---
Assessment/Plan Problem List: (1) Azotemia (2) Type 2 diabetes mellitus (3) COPD exacerbation (4) Elevated lactic acid level Assessment Renal failure COPD Acute- dehydration , ? CKD underlying UTI , High Lactic HyperKalemia DM Anemia DNR Plan correct mag and K and Phos- ABG noted 2D echo pending- reordered DC Hydrate- Pulm toilet Anemia castro PO protonix Monitor renal parameters Subjective ROS Limited/Unobtainable: No Constitutional: Reports: malaise, weakness Objective Objective Last 24 Hour Vital Signs Date Time Temp Pulse Resp B/P (MAP) Pulse Ox O2 Delivery O2 Flow Rate FiO2 05/16/19 11:44 110 20 98 Venturi Mask 14.0 55 102 24 90 05/16/19 09:36 107 20 97 Venturi Mask 14.0 55 98 22 94 05/16/19 08:27 Venturi Mask 12.0 05/16/19 08:00 97.7 88 19 124/77 (93) 99 05/16/19 08:00 96 05/16/19 06:58 88 16 97 Venturi Mask 14.0 55 90 18 96 05/16/19 06:58 96 Venturi Mask 14.0 55 05/16/19 04:00 90 05/16/19 04:00 97.0 99 20 127/76 (93) 97 05/16/19 02:22 90 18 99 Venturi Mask 14.0 55 94 18 97 05/16/19 00:00 98.9 98 20 113/72 (86) 98 05/16/19 00:00 93 05/15/19 22:56 103 20 98 Venturi Mask 14.0 55 101 20 95 05/15/19 21:00 Venturi Mask 12.0 05/15/19 20:00 99.1 105 20 115/65 (82) 98 05/15/19 20:00 102 05/15/19 19:58 94 Venturi Mask 14.0 55 05/15/19 19:58 108 22 97 Venturi Mask 14.0 55 105 22 94 05/15/19 16:00 110 05/15/19 16:00 97.3 109 21 133/77 (95) 93 05/15/19 15:55 114 22 95 Venturi Mask 14.0 55 102 22 92 05/15/19 12:00 99 05/15/19 12:00 97.7 102 21 126/84 (98) 94 Intake and Output 05/15/19 05/16/19 19:00 07:00 Intake Total 200 ml 170.0 ml Balance 200 ml 170.0 ml Intake Oral 200 ml IV Total 170.0 ml # Voids 1 2 Height (Feet): 5 Height (Inches): 1.00 Weight (Pounds): 120 General Appearance: mild distress Cardiovascular: tachycardia Respiratory/Chest: decreased breath sounds Abdomen: distended José Miguel Calvert MD May 16, 2019 11:58
[2019-05-16 12:00] VITALS: BP 140/87
[2019-05-16] MEDS ORDERED: Furosemide 40mg tab ORAL SCH (12:00)
--- NOTE | 2019-05-16 13:55 | Infectious Diseases Prog Note ---
Assessment/Plan Assessment/Plan IMPRESSION: Pneumonia Leukocytosis, resolved Acute renal failure. resolved diabetes mellitus, hypertension, COPD, anemia. RECOMMENDATION: Continue Zosyn. Subjective ROS Limited/Unobtainable: Yes Constitutional: Reports: other - feels better Respiratory: Reports: shortness of breath Cardiovascular: Reports: no symptoms Gastrointestinal/Abdominal: Reports: no symptoms Genitourinary: Reports: no symptoms Allergies: Coded Allergies: No Known Allergies (Unverified , 11/08/15) Objective Vital Signs Last 24 Hour Vital Signs Date Time Temp Pulse Resp B/P (MAP) Pulse Ox O2 Delivery O2 Flow Rate FiO2 05/16/19 12:00 98.0 99 19 140/87 (104) 99 05/16/19 12:00 102 05/16/19 11:44 110 20 98 Venturi Mask 14.0 55 102 24 90 05/16/19 09:36 107 20 97 Venturi Mask 14.0 55 98 22 94 05/16/19 08:27 Venturi Mask 12.0 05/16/19 08:00 97.7 88 19 124/77 (93) 99 05/16/19 08:00 96 05/16/19 06:58 88 16 97 Venturi Mask 14.0 55 90 18 96 05/16/19 06:58 96 Venturi Mask 14.0 55 05/16/19 04:00 90 05/16/19 04:00 97.0 99 20 127/76 (93) 97 05/16/19 02:22 90 18 99 Venturi Mask 14.0 55 94 18 97 05/16/19 00:00 98.9 98 20 113/72 (86) 98 05/16/19 00:00 93 05/15/19 22:56 103 20 98 Venturi Mask 14.0 55 101 20 95 05/15/19 21:00 Venturi Mask 12.0 05/15/19 20:00 99.1 105 20 115/65 (82) 98 05/15/19 20:00 102 05/15/19 19:58 94 Venturi Mask 14.0 55 05/15/19 19:58 108 22 97 Venturi Mask 14.0 55 105 22 94 05/15/19 16:00 110 05/15/19 16:00 97.3 109 21 133/77 (95) 93 05/15/19 15:55 114 22 95 Venturi Mask 14.0 55 102 22 92 Height (Feet): 5 Height (Inches): 1.00 Weight (Pounds): 120 General Appearance: no acute distress HEENT: mucous membranes moist Respiratory/Chest: lungs clear Cardiovascular: tachycardia Abdomen: soft, non tender Extremities: no edema Neurologic/Psychiatric: alert, responsive Microbiology Date/Time Source Procedure Growth Status 05/15/19 03:10 Nasal Nares - Final Complete 05/15/19 03:10 Nasal Nares - Final Complete Current Medications Medications (Trade) Dose Ordered Sig/Tenzin Route PRN Reason Start Time Stop Time Status Last Admin Dose Admin Albuterol/ Ipratropium (Albuterol/ Ipratropium) 3 ml Q4H PRN HHN Shortness of Breath 05/13/19 09:00 05/18/19 08:59 05/16/19 11:44 Albuterol/ Ipratropium (Albuterol/ Ipratropium) 3 ml Q4HRT HHN 05/13/19 11:00 05/18/19 10:59 05/16/19 11:44 Citalopram Hydrobromide (celeXA) 20 mg DAILY ORAL 05/14/19 15:30 06/13/19 15:29 05/16/19 08:15 Dextrose (Dextrose 50%) 25 ml Q30M PRN IV Hypoglycemia 05/13/19 22:00 06/12/19 21:59 Dextrose (Dextrose 50%) 50 ml Q30M PRN IV Hypoglycemia 05/13/19 22:00 06/12/19 21:59 Docusate Sodium (Colace) 100 mg THREE TIMES A DAY ORAL 05/15/19 13:00 06/14/19 12:59 05/16/19 08:15 Insulin Aspart (NovoLOG) BEFORE MEALS AND HS SUBQ 05/14/19 06:30 06/13/19 06:29 05/16/19 11:29 Insulin Detemir (Levemir) 10 units Q24H SUBQ 05/13/19 22:00 06/12/19 21:59 05/15/19 21:33 Iron Sucrose 100 mg/Sodium Chloride 60 ml @ 240 mls/hr BEDTIME IV 05/14/19 21:00 05/18/19 21:14 05/15/19 21:29 Morphine Sulfate (Morphine Sulfate) 1 mg Q6H PRN IVP For Pain 05/13/19 09:30 05/20/19 09:29 05/15/19 21:29 Nateglinide (Starlix) 60 mg TIAC ORAL 05/13/19 11:30 06/12/19 11:29 05/16/19 11:29 Ondansetron HCl (Zofran) 4 mg Q6H PRN IVP Nausea & Vomiting 05/12/19 09:45 06/11/19 09:44 Pantoprazole (Protonix) 40 mg BID ORAL 05/13/19 18:00 06/13/19 08:59 05/16/19 08:16 Piperacillin Sod/ Tazobactam Sod 3.375 gm/Sodium Chloride 110 ml @ 27.5 mls/hr Q8H IVPB 05/12/19 16:00 05/19/19 15:59 05/16/19 08:15 Potassium Chloride (K-Dur) 40 meq TWICE A DAY ORAL 05/15/19 11:30 06/14/19 11:29 05/16/19 08:16 Sodium Chloride 550 ml @ 0 mls/hr Q0M IV 05/12/19 14:00 06/11/19 13:59 Valproic Acid (Depakene) 125 mg EVERY 12 HOURS NG 05/14/19 21:00 06/13/19 20:59 05/16/19 08:16 Rogelio Martinez MD May 16, 2019 13:55
--- NOTE | 2019-05-16 15:21 | General Progress Note ---
Assessment/Plan Status: progressing Assessment/Plan: Assessment - N/V - resolved - Sepsis - improved - lactic acidosis - improved - Renal failure - RAD Recommendations - Abx - IVF - po pureed - follow labs - Check OB Subjective Allergies: Coded Allergies: No Known Allergies (Unverified , 11/08/15) Subjective Feels OK tolerating PO Breathing better Objective Last 24 Hour Vital Signs Date Time Temp Pulse Resp B/P (MAP) Pulse Ox O2 Delivery O2 Flow Rate FiO2 05/16/19 12:00 98.0 99 19 140/87 (104) 99 05/16/19 12:00 102 05/16/19 11:44 110 20 98 Venturi Mask 14.0 55 102 24 90 05/16/19 09:36 107 20 97 Venturi Mask 14.0 55 98 22 94 05/16/19 08:27 Venturi Mask 12.0 05/16/19 08:00 97.7 88 19 124/77 (93) 99 05/16/19 08:00 96 05/16/19 06:58 88 16 97 Venturi Mask 14.0 55 90 18 96 05/16/19 06:58 96 Venturi Mask 14.0 55 05/16/19 04:00 90 05/16/19 04:00 97.0 99 20 127/76 (93) 97 05/16/19 02:22 90 18 99 Venturi Mask 14.0 55 94 18 97 05/16/19 00:00 98.9 98 20 113/72 (86) 98 05/16/19 00:00 93 05/15/19 22:56 103 20 98 Venturi Mask 14.0 55 101 20 95 05/15/19 21:00 Venturi Mask 12.0 05/15/19 20:00 99.1 105 20 115/65 (82) 98 05/15/19 20:00 102 05/15/19 19:58 94 Venturi Mask 14.0 55 05/15/19 19:58 108 22 97 Venturi Mask 14.0 55 105 22 94 05/15/19 16:00 110 05/15/19 16:00 97.3 109 21 133/77 (95) 93 05/15/19 15:55 114 22 95 Venturi Mask 14.0 55 102 22 92 Intake and Output 05/15/19 05/16/19 19:00 07:00 Intake Total 200 ml 170.0 ml Balance 200 ml 170.0 ml Intake Oral 200 ml IV Total 170.0 ml # Voids 1 2 Height (Feet): 5 Height (Inches): 1.00 Weight (Pounds): 120 Objective WDWN AA woman NCAT supple Chest - some ronchi and wheeze RR abd soft NT ND no edema Sangeeta Bianchi MD May 16, 2019 15:21
[2019-05-16 16:00] VITALS: BP 120/76
--- NOTE | 2019-05-16 19:24 | NUR ---
HAND-OFF: Report given to NEFTALI Meadows.
--- NOTE | 2019-05-16 19:35 | NUR ---
NURSE NOTES: Received report from NEFTALI Trujillo. Patient is awake lying semi-barrett's; resting comfortably. No signs of acute distress noted; denies pain at this time. On 12L Venturi Mask saturating at 96%. AOx4; able to make needs known. Checked IV site; patent and flushed. No erythema, bleeding, or infiltration noted. Bed at lowest position, brakes on, siderails up x3. Call light within reach. Will continue to monitor.
[2019-05-16 20:00] VITALS: BP 133/79
--- NOTE | 2019-05-16 20:23 | Hematology/Onc Progress Note ---
Assessment/Plan Assessment/Plan Assessment and Recs: # Anemia of iron deficiency -- hgb remains low, anemia panel reviewed, ferritin is 20 --> start on iv iron x 5 days --> cea is 4.9 --> no hemolysis is seen --> r/o gi bleed, gi is on board --> blood tx: 1 unit on 05/15, # Leukocytosis with Sepsis likely due to uti --> has now improved --> levaquin started-->zosyn # Ryan on admission --> per renal on ivf # Elevated lactic acid level --> sp abx lecquin # Type 2 diabetes mellitus --> acucchecks qac and qhs --> iss, consider endo # Stage I decubitus ulcer sacrum # Dvt ppx scds Appreciate consultation and dw Rn Subjective Allergies: Coded Allergies: No Known Allergies (Unverified , 11/08/15) Subjective 05/16: awake ad alert, v mask, s/p blood, on iv iron Objective Objective Current Medications Medications (Trade) Dose Ordered Sig/Tenzin Route PRN Reason Start Time Stop Time Status Last Admin Dose Admin Albuterol/ Ipratropium (Albuterol/ Ipratropium) 3 ml Q4H PRN HHN Shortness of Breath 05/13/19 09:00 05/18/19 08:59 05/16/19 11:44 Albuterol/ Ipratropium (Albuterol/ Ipratropium) 3 ml Q4HRT HHN 05/13/19 11:00 05/18/19 10:59 05/16/19 15:18 Citalopram Hydrobromide (celeXA) 20 mg DAILY ORAL 05/14/19 15:30 06/13/19 15:29 05/16/19 08:15 Dextrose (Dextrose 50%) 25 ml Q30M PRN IV Hypoglycemia 05/13/19 22:00 06/12/19 21:59 Dextrose (Dextrose 50%) 50 ml Q30M PRN IV Hypoglycemia 05/13/19 22:00 06/12/19 21:59 Docusate Sodium (Colace) 100 mg THREE TIMES A DAY ORAL 05/15/19 13:00 06/14/19 12:59 05/16/19 08:15 Insulin Aspart (NovoLOG) BEFORE MEALS AND HS SUBQ 05/14/19 06:30 06/13/19 06:29 05/16/19 16:18 Insulin Detemir (Levemir) 10 units Q24H SUBQ 05/13/19 22:00 06/12/19 21:59 05/15/19 21:33 Iron Sucrose 100 mg/Sodium Chloride 60 ml @ 240 mls/hr BEDTIME IV 05/14/19 21:00 05/18/19 21:14 05/15/19 21:29 Morphine Sulfate (Morphine Sulfate) 1 mg Q6H PRN IVP For Pain 05/13/19 09:30 05/20/19 09:29 05/15/19 21:29 Nateglinide (Starlix) 60 mg TIAC ORAL 05/13/19 11:30 06/12/19 11:29 05/16/19 17:30 Ondansetron HCl (Zofran) 4 mg Q6H PRN IVP Nausea & Vomiting 05/12/19 09:45 06/11/19 09:44 Pantoprazole (Protonix) 40 mg BID ORAL 05/13/19 18:00 06/13/19 08:59 05/16/19 17:30 Piperacillin Sod/ Tazobactam Sod 3.375 gm/Sodium Chloride 110 ml @ 27.5 mls/hr Q8H IVPB 05/12/19 16:00 05/19/19 15:59 05/16/19 16:16 Potassium Chloride (K-Dur) 40 meq TWICE A DAY ORAL 05/15/19 11:30 06/14/19 11:29 05/16/19 17:30 Sodium Chloride 550 ml @ 0 mls/hr Q0M IV 05/12/19 14:00 06/11/19 13:59 Valproic Acid (Depakene) 125 mg EVERY 12 HOURS NG 05/14/19 21:00 06/13/19 20:59 05/16/19 08:16 Last 24 Hour Vital Signs Date Time Temp Pulse Resp B/P (MAP) Pulse Ox O2 Delivery O2 Flow Rate FiO2 05/16/19 16:00 98.1 91 18 120/76 (91) 99 05/16/19 16:00 100 05/16/19 15:18 107 20 98 Venturi Mask 14.0 55 94 20 92 05/16/19 12:00 98.0 99 19 140/87 (104) 99 05/16/19 12:00 102 05/16/19 11:44 110 20 98 Venturi Mask 14.0 55 102 24 90 05/16/19 09:36 107 20 97 Venturi Mask 14.0 55 98 22 94 05/16/19 08:27 Venturi Mask 12.0 05/16/19 08:00 97.7 88 19 124/77 (93) 99 05/16/19 08:00 96 05/16/19 06:58 88 16 97 Venturi Mask 14.0 55 90 18 96 05/16/19 06:58 96 Venturi Mask 14.0 55 05/16/19 04:00 90 05/16/19 04:00 97.0 99 20 127/76 (93) 97 05/16/19 02:22 90 18 99 Venturi Mask 14.0 55 94 18 97 05/16/19 00:00 98.9 98 20 113/72 (86) 98 05/16/19 00:00 93 05/15/19 22:56 103 20 98 Venturi Mask 14.0 55 101 20 95 05/15/19 21:00 Venturi Mask 12.0 05/15/19 20:00 99.1 105 20 115/65 (82) 98 05/15/19 20:00 102 05/15/19 19:58 94 Venturi Mask 14.0 55 05/15/19 19:58 108 22 97 Venturi Mask 14.0 55 105 22 94 05/15/19 16:00 110 05/15/19 16:00 97.3 109 21 133/77 (95) 93 05/15/19 15:55 114 22 95 Venturi Mask 14.0 55 102 22 92 05/15/19 12:00 99 05/15/19 12:00 97.7 102 21 126/84 (98) 94 05/15/19 11:07 113 20 94 Venturi Mask 14.0 55 103 22 93 05/15/19 09:00 Venturi Mask 12.0 05/15/19 08:00 90 05/15/19 08:00 97.7 95 19 141/80 (100) 97 05/15/19 07:44 96 Venturi Mask 14.0 55 05/15/19 04:00 105 2/1/20 04:00 97.9 89 18 130/69 (89) 97 05/15/19 03:13 107 20 95 Venturi Mask 14.0 55 105 20 92 05/15/19 00:00 97.0 98 18 121/77 (92) 98 05/14/19 22:55 105 20 96 Venturi Mask 14.0 55 103 20 93 05/14/19 21:00 Venturi Mask 12.0 Intake and Output 05/15/19 05/16/19 19:00 07:00 Intake Total 200 ml 170.0 ml Balance 200 ml 170.0 ml Intake Oral 200 ml IV Total 170.0 ml # Voids 1 2 Labs Test 05/14/19 09:10 05/14/19 09:30 05/15/19 06:40 Arterial Blood pH 7.481 (7.350-7.450) Arterial Blood Partial Pressure CO2 33.8 mmHg (35.0-45.0) Arterial Blood Partial Pressure O2 94.0 mmHg (75.0-100.0) Arterial Blood HCO3 24.7 mmol/L (22.0-26.0) Arterial Blood Oxygen Saturation 96.9 % (95-100) Arterial Blood Base Excess 1.2 (-2-2) Mando Test Positive White Blood Count 11.8 K/UL (4.8-10.8) 10.7 K/UL (4.8-10.8) Red Blood Count 2.50 M/UL (4.20-5.40) 2.80 M/UL (4.20-5.40) Hemoglobin 7.0 G/DL (12.0-16.0) 8.1 G/DL (12.0-16.0) Hematocrit 21.3 % (37.0-47.0) 23.8 % (37.0-47.0) Mean Corpuscular Volume 85 FL (80-99) 85 FL (80-99) Mean Corpuscular Hemoglobin 28.0 PG (27.0-31.0) 28.8 PG (27.0-31.0) Mean Corpuscular Hemoglobin Concent 32.9 G/DL (32.0-36.0) 33.9 G/DL (32.0-36.0) Red Cell Distribution Width 14.1 % (11.6-14.8) 13.9 % (11.6-14.8) Platelet Count 300 K/UL (150-450) 262 K/UL (150-450) Mean Platelet Volume 5.1 FL (6.5-10.1) 5.6 FL (6.5-10.1) Neutrophils (%) (Auto) % (45.0-75.0) 69.4 % (45.0-75.0) Lymphocytes (%) (Auto) % (20.0-45.0) 19.4 % (20.0-45.0) Monocytes (%) (Auto) % (1.0-10.0) 9.2 % (1.0-10.0) Eosinophils (%) (Auto) % (0.0-3.0) 1.2 % (0.0-3.0) Basophils (%) (Auto) % (0.0-2.0) 0.8 % (0.0-2.0) Differential Total Cells Counted 100 Neutrophils % (Manual) 78 % (45-75) Lymphocytes % (Manual) 15 % (20-45) Monocytes % (Manual) 6 % (1-10) Eosinophils % (Manual) 1 % (0-3) Basophils % (Manual) 0 % (0-2) Band Neutrophils 0 % (0-8) Platelet Estimate Adequate Platelet Morphology Normal Hypochromasia 1+ Anisocytosis 1+ Sodium Level 144 MMOL/L (136-145) 141 MMOL/L (136-145) Potassium Level 3.0 MMOL/L (3.5-5.1) 3.0 MMOL/L (3.5-5.1) Chloride Level 107 MMOL/L (98-107) 106 MMOL/L (98-107) Carbon Dioxide Level 29 MMOL/L (21-32) 27 MMOL/L (21-32) Anion Gap 9 mmol/L (5-15) 8 mmol/L (5-15) Blood Urea Nitrogen 12 mg/dL (7-18) 10 mg/dL (7-18) Creatinine 0.9 MG/DL (0.55-1.30) 0.8 MG/DL (0.55-1.30) Estimat Glomerular Filtration Rate > 60 mL/min (>60) > 60 mL/min (>60) Glucose Level 173 MG/DL (74-106) 180 MG/DL (74-106) Calcium Level 7.3 MG/DL (8.5-10.1) 7.6 MG/DL (8.5-10.1) Phosphorus Level 2.0 MG/DL (2.5-4.9) 2.7 MG/DL (2.5-4.9) Magnesium Level 1.4 MG/DL (1.8-2.4) 1.9 MG/DL (1.8-2.4) Total Bilirubin 0.2 MG/DL (0.2-1.0) 0.3 MG/DL (0.2-1.0) Aspartate Amino Transf (AST/SGOT) 25 U/L (15-37) 25 U/L (15-37) Alanine Aminotransferase (ALT/SGPT) 34 U/L (12-78) 26 U/L (12-78) Alkaline Phosphatase 44 U/L (46-116) 44 U/L (46-116) C-Reactive Protein, Quantitative 3.0 mg/dL (0.00-0.90) 5.1 mg/dL (0.00-0.90) Total Protein 6.1 G/DL (6.4-8.2) 5.9 G/DL (6.4-8.2) Albumin 2.5 G/DL (3.4-5.0) 2.3 G/DL (3.4-5.0) Globulin 3.6 g/dL 3.6 g/dL Albumin/Globulin Ratio 0.7 (1.0-2.7) 0.6 (1.0-2.7) Uric Acid 3.4 MG/DL (2.6-7.2) Pro-B-Type Natriuretic Peptide 9065 pg/mL (0-125) Height (Feet): 5 Height (Inches): 1.00 Weight (Pounds): 120 Objective Physical Exam Vitals: reviewed General: alert, non-toxic, thin, other - Frail, Chronically Ill Head: normocephalic, atraumatic Heent: bilateral eye normal inspection, bilateral eye PERRl Respiratory: lungs clear, normal breath sounds, V mask++ Cardiovascular: regular rate, rhythm, no edema Gi: non tender, soft, decreased bowel sounds Gu: no CVA tenderness Msk: no calf tenderness, + Atrophy Neuro: alert, sensory intact, w motor weakness Psychiatric: mood/affect normal Skin: ++ Danie Jackson MD May 16, 2019 20:23
--- NOTE | 2019-05-16 21:33 | General Progress Note ---
Assessment/Plan Problem List: (1) Constipation ICD Codes: K59.00 - Constipation, unspecified SNOMED: 15597163 (2) Renal insufficiency ICD Codes: N28.9 - Disorder of kidney and ureter, unspecified SNOMED: 716871294, 725495090 (3) COPD exacerbation ICD Codes: J44.1 - Chronic obstructive pulmonary disease with (acute) exacerbation SNOMED: 073053510 (4) UTI (urinary tract infection) ICD Codes: N39.0 - Urinary tract infection, site not specified SNOMED: 69657059 Qualifiers: Qualified Codes: N39.0 - Urinary tract infection, site not specified (5) Hyperlipidemia associated with type 2 diabetes mellitus ICD Codes: E11.69 - Type 2 diabetes mellitus with other specified complication ; E78.5 - Hyperlipidemia, unspecified SNOMED: 931125812, 800856941519 (6) Type 2 diabetes mellitus ICD Codes: E11.9 - Type 2 diabetes mellitus without complications SNOMED: 92658599, 445113305 Qualifiers: Qualified Codes: E11.9 - Type 2 diabetes mellitus without complications (7) Azotemia ICD Codes: R79.89 - Other specified abnormal findings of blood chemistry SNOMED: 712020984 (8) Cholelithiasis ICD Codes: K80.20 - Calculus of gallbladder without cholecystitis without obstruction SNOMED: 794837712 Status: progressing Assessment/Plan: no vomitting niddm low k.replacment per renal no abdominal pain reviewed chart and labs Subjective ROS Limited/Unobtainable: Yes Allergies: Coded Allergies: No Known Allergies (Unverified , 11/08/15) Objective Last 24 Hour Vital Signs Date Time Temp Pulse Resp B/P (MAP) Pulse Ox O2 Delivery O2 Flow Rate FiO2 05/16/19 16:00 98.1 91 18 120/76 (91) 99 05/16/19 16:00 100 05/16/19 15:18 107 20 98 Venturi Mask 14.0 55 94 20 92 05/16/19 12:00 98.0 99 19 140/87 (104) 99 05/16/19 12:00 102 05/16/19 11:44 110 20 98 Venturi Mask 14.0 55 102 24 90 05/16/19 09:36 107 20 97 Venturi Mask 14.0 55 98 22 94 05/16/19 08:27 Venturi Mask 12.0 05/16/19 08:00 97.7 88 19 124/77 (93) 99 05/16/19 08:00 96 05/16/19 06:58 88 16 97 Venturi Mask 14.0 55 90 18 96 05/16/19 06:58 96 Venturi Mask 14.0 55 05/16/19 04:00 90 05/16/19 04:00 97.0 99 20 127/76 (93) 97 05/16/19 02:22 90 18 99 Venturi Mask 14.0 55 94 18 97 05/16/19 00:00 98.9 98 20 113/72 (86) 98 05/16/19 00:00 93 05/15/19 22:56 103 20 98 Venturi Mask 14.0 55 101 20 95 Intake and Output 05/15/19 05/16/19 18:59 06:59 Intake Total 200 ml 170.0 ml Balance 200 ml 170.0 ml Intake Oral 200 ml IV Total 170.0 ml # Voids 1 2 Height (Feet): 5 Height (Inches): 1.00 Weight (Pounds): 120 Respiratory/Chest: lungs clear Abdomen: soft Amelie Rios MD May 16, 2019 21:32
[2019-05-16] MEDS: Levemir Flexpen SUBQ SCH (22:03)
[2019-05-16] MEDS: Iron Sucrose 100 MG in NS 55 ML IV SCH (22:04)
[2019-05-17] VITALS: BP 139/88
[2019-05-17] MEDS: Piperacillin/Tazobactam 3.375 GM in NS 110 ML IVPB SCH ×4 (00:26→23:32)
--- NOTE | 2019-05-17 03:16 | NUR ---
NURSE NOTES: Patient is asleep lying semi-barrett's; resting comfortably. No signs of acute distress or pain noted at this time. On 14L Venturi Mask.
[2019-05-17] MEDS: Albuterol/Ipratropium 3ml neb HHN SCH ×6 (03:21→23:42)
[2019-05-17 04:00] VITALS: BP 136/86
[2019-05-17] MEDS: Nateglinide 60mg tab ORAL SCH ×3 (06:25→17:07)
[2019-05-17] MEDS: NovoLOG Insulin Flexpen SUBQ SCH ×4 (06:26→21:02)
--- NOTE | 2019-05-17 07:05 | NUR ---
HAND-OFF: Report given to NEFTALI Trujillo. Patient is asleep lying semi-barrett's; resting comfortably. On 14L Venturi Mask. In stable condition.
--- NOTE | 2019-05-17 07:08 | NUR ---
NURSE NOTES: Received pt in bed, sleeping. On venturi mask 14L/min. No s/s of distress/pain. IV on L hand 24g noted. Side rails x2. Bed in the lowest, locked, and alarm on. Call light within reach. Will continue to monitor
[2019-05-17 07:13] LABS: ALANINE AMINOTRANSFERASE 23 U/L (12-78); ALBUMIN 2.2 G/DL (3.4-5.0); ALBUMIN/GLOBULIN RATIO 0.6 (1.0-2.7); ALKALINE PHOSPHATASE 44 U/L (46-116); ANION GAP 7 mmol/L (5-15); ASPARTATE AMINO TRANSFERASE 21 U/L (15-37); BASOPHILS % (AUTO) 0.9 % (0.0-2.0); BILIRUBIN,TOTAL 0.3 MG/DL (0.2-1.0); BLOOD UREA NITROGEN 11 mg/dL (7-18); CARBON DIOXIDE 29 MMOL/L (21-32); CHLORIDE 112 MMOL/L (98-107); HEMATOCRIT 23.9 % (37.0-47.0); LYMPHOCYTES % (AUTO) 25.9 % (20.0-45.0); MEAN CORPUSCULAR VOLUME 86 FL (80-99); NEUTROPHILS % (AUTO) 58.2 % (45.0-75.0); PLATELET COUNT 288 K/UL (150-450); POTASSIUM 4.8 MMOL/L (3.5-5.1); RED BLOOD COUNT 2.77 M/UL (4.20-5.40); RED CELL DISTRIBUTION WIDTH 15.4 % (11.6-14.8); SODIUM 148 MMOL/L (136-145); WHITE BLOOD COUNT 10.2 K/UL (4.8-10.8)
[2019-05-17 08:00] VITALS: BP 156/85
--- NOTE | 2019-05-17 08:48 | Hematology/Onc Progress Note ---
Assessment/Plan Assessment/Plan Assessment and Recs: # Anemia of iron deficiency -- hgb remains low, anemia panel reviewed, ferritin is 20 --> start on iv iron x 5 days --> cea is 4.9 --> no hemolysis is seen --> r/o gi bleed, gi is on board --> blood tx: 1 unit on 05/15, --> hgb was 8 # Leukocytosis with Sepsis likely due to uti --> has now improved --> levaquin started-->zosyn # Ryan on admission --> per renal on ivf # Elevated lactic acid level --> sp abx lecquin # Type 2 diabetes mellitus --> acucchecks qac and qhs --> iss, consider endo # Stage I decubitus ulcer sacrum # Dvt ppx scds Appreciate consultation and dw Rn Subjective Constitutional: Denies: no symptoms, chills, fever, malaise, weakness, other HEENT: Denies: no symptoms, eye pain, blurred vision, tearing, double vision, ear pain, ear discharge, nose pain, nose congestion, throat pain, throat swelling, mouth pain, mouth swelling, other Cardiovascular: Denies: no symptoms, chest pain, edema, irregular heart rate, lightheadedness, palpitations, syncope, other Respiratory: Denies: no symptoms, cough, shortness of breath, SOB with excertion, SOB at rest, sputum, wheezing, other Gastrointestinal/Abdominal: Denies: no symptoms, abdomen distended, abdominal pain, black stools, tarry stools, blood in stool, constipated, diarrhea, difficulty swallowing, nausea, poor appetite, poor fluid intake, rectal bleeding , vomiting, other Genitourinary: Denies: no symptoms, burning, discharge, frequency, flank pain, hematuria, incontinence, pain, urgency, other Neurologic/Psychiatric: Denies: no symptoms, anxiety, depressed, emotional problems, headache, numbness, paresthesia, pre-existing deficit, seizure, tingling, tremors, weakness, other Endocrine: Denies: no symptoms, excessive sweating, flushing, intolerance to cold, intolerance to heat, increased hunger, increased thirst, increased urine, unexplained weight gain, unexplained weight loss, other Allergies: Coded Allergies: No Known Allergies (Unverified , 11/08/15) Subjective 05/16: awake ad alert, v mask, s/p blood, on iv iron 05/17: no bleeding or chills noted, hgb remains stable, at hgb 8 Objective Objective Current Medications Medications (Trade) Dose Ordered Sig/Tenzin Route PRN Reason Start Time Stop Time Status Last Admin Dose Admin Albuterol/ Ipratropium (Albuterol/ Ipratropium) 3 ml Q4H PRN HHN Shortness of Breath 05/13/19 09:00 05/18/19 08:59 05/16/19 11:44 Albuterol/ Ipratropium (Albuterol/ Ipratropium) 3 ml Q4HRT HHN 05/13/19 11:00 05/18/19 10:59 05/17/19 07:35 Citalopram Hydrobromide (celeXA) 20 mg DAILY ORAL 05/14/19 15:30 06/13/19 15:29 05/16/19 08:15 Dextrose (Dextrose 50%) 25 ml Q30M PRN IV Hypoglycemia 05/13/19 22:00 06/12/19 21:59 Dextrose (Dextrose 50%) 50 ml Q30M PRN IV Hypoglycemia 05/13/19 22:00 06/12/19 21:59 Docusate Sodium (Colace) 100 mg THREE TIMES A DAY ORAL 05/15/19 13:00 06/14/19 12:59 05/16/19 08:15 Insulin Aspart (NovoLOG) BEFORE MEALS AND HS SUBQ 05/14/19 06:30 06/13/19 06:29 05/17/19 06:26 Insulin Detemir (Levemir) 10 units Q24H SUBQ 05/13/19 22:00 06/12/19 21:59 05/16/19 22:03 Iron Sucrose 100 mg/Sodium Chloride 60 ml @ 240 mls/hr BEDTIME IV 05/14/19 21:00 05/18/19 21:14 05/16/19 22:04 Magnesium Sulfate 100 ml @ 100 mls/hr Q1H IVPB 05/17/19 08:30 05/17/19 12:29 Morphine Sulfate (Morphine Sulfate) 1 mg Q6H PRN IVP For Pain 05/13/19 09:30 05/20/19 09:29 05/15/19 21:29 Nateglinide (Starlix) 60 mg TIAC ORAL 05/13/19 11:30 06/12/19 11:29 05/17/19 06:25 Ondansetron HCl (Zofran) 4 mg Q6H PRN IVP Nausea & Vomiting 05/12/19 09:45 06/11/19 09:44 05/16/19 22:04 Pantoprazole (Protonix) 40 mg BID ORAL 05/13/19 18:00 06/13/19 08:59 05/16/19 17:30 Piperacillin Sod/ Tazobactam Sod 3.375 gm/Sodium Chloride 110 ml @ 27.5 mls/hr Q8H IVPB 05/12/19 16:00 05/19/19 15:59 05/17/19 00:26 Potassium Chloride (K-Dur) 40 meq TWICE A DAY ORAL 05/15/19 11:30 06/14/19 11:29 05/16/19 17:30 Sodium Chloride 550 ml @ 0 mls/hr Q0M IV 05/12/19 14:00 06/11/19 13:59 Valproic Acid (Depakene) 125 mg EVERY 12 HOURS NG 05/14/19 21:00 06/13/19 20:59 05/16/19 22:04 Last 24 Hour Vital Signs Date Time Temp Pulse Resp B/P (MAP) Pulse Ox O2 Delivery O2 Flow Rate FiO2 05/17/19 08:00 97.4 89 20 156/85 (108) 98 05/17/19 07:45 95 18 100 Venturi Mask 14.0 55 94 18 98 05/17/19 07:45 98 Venturi Mask 14.0 55 05/17/19 04:00 98.1 99 18 136/86 (103) 96 05/17/19 04:00 93 05/17/19 03:23 100 17 100 Venturi Mask 14.0 55 94 18 99 05/17/19 00:00 97.6 103 18 139/88 (105) 98 05/17/19 00:00 92 05/16/19 23:48 106 17 97 Venturi Mask 14.0 55 104 18 94 05/16/19 21:15 84 Venturi Mask 55 05/16/19 21:00 Venturi Mask 14.0 05/16/19 20:00 111 05/16/19 20:00 97.2 100 20 133/79 (97) 98 05/16/19 16:00 98.1 91 18 120/76 (91) 99 05/16/19 16:00 100 05/16/19 15:18 107 20 98 Venturi Mask 14.0 55 94 20 92 05/16/19 12:00 98.0 99 19 140/87 (104) 99 05/16/19 12:00 102 05/16/19 11:44 110 20 98 Venturi Mask 14.0 55 102 24 90 05/16/19 09:36 107 20 97 Venturi Mask 14.0 55 98 22 94 05/16/19 08:27 Venturi Mask 12.0 05/16/19 08:00 97.7 88 19 124/77 (93) 99 05/16/19 08:00 96 05/16/19 06:58 88 16 97 Venturi Mask 14.0 55 90 18 96 05/16/19 06:58 96 Venturi Mask 14.0 55 05/16/19 04:00 90 05/16/19 04:00 97.0 99 20 127/76 (93) 97 05/16/19 02:22 90 18 99 Venturi Mask 14.0 55 94 18 97 05/16/19 00:00 98.9 98 20 113/72 (86) 98 05/16/19 00:00 93 05/15/19 22:56 103 20 98 Venturi Mask 14.0 55 101 20 95 05/15/19 21:00 Venturi Mask 12.0 05/15/19 20:00 99.1 105 20 115/65 (82) 98 05/15/19 20:00 102 05/15/19 19:58 94 Venturi Mask 14.0 55 05/15/19 19:58 108 22 97 Venturi Mask 14.0 55 105 22 94 05/15/19 16:00 110 05/15/19 16:00 97.3 109 21 133/77 (95) 93 05/15/19 15:55 114 22 95 Venturi Mask 14.0 55 102 22 92 05/15/19 12:00 99 05/15/19 12:00 97.7 102 21 126/84 (98) 94 05/15/19 11:07 113 20 94 Venturi Mask 14.0 55 103 22 93 05/15/19 09:00 Venturi Mask 12.0 Intake and Output 05/16/19 05/17/19 19:00 07:00 Intake Total 857.5 ml 170.0 ml Balance 857.5 ml 170.0 ml Intake Oral 775 ml IV Total 82.5 ml 170.0 ml # Voids 4 # Bowel Movements 2 Labs Test 05/14/19 09:10 05/14/19 09:30 05/15/19 06:40 05/17/19 06:35 Arterial Blood pH 7.481 (7.350-7.450) Arterial Blood Partial Pressure CO2 33.8 mmHg (35.0-45.0) Arterial Blood Partial Pressure O2 94.0 mmHg (75.0-100.0) Arterial Blood HCO3 24.7 mmol/L (22.0-26.0) Arterial Blood Oxygen Saturation 96.9 % (95-100) Arterial Blood Base Excess 1.2 (-2-2) Mando Test Positive White Blood Count 11.8 K/UL (4.8-10.8) 10.7 K/UL (4.8-10.8) 10.2 K/UL (4.8-10.8) Red Blood Count 2.50 M/UL (4.20-5.40) 2.80 M/UL (4.20-5.40) 2.77 M/UL (4.20-5.40) Hemoglobin 7.0 G/DL (12.0-16.0) 8.1 G/DL (12.0-16.0) 8.0 G/DL (12.0-16.0) Hematocrit 21.3 % (37.0-47.0) 23.8 % (37.0-47.0) 23.9 % (37.0-47.0) Mean Corpuscular Volume 85 FL (80-99) 85 FL (80-99) 86 FL (80-99) Mean Corpuscular Hemoglobin 28.0 PG (27.0-31.0) 28.8 PG (27.0-31.0) 28.9 PG (27.0-31.0) Mean Corpuscular Hemoglobin Concent 32.9 G/DL (32.0-36.0) 33.9 G/DL (32.0-36.0) 33.5 G/DL (32.0-36.0) Red Cell Distribution Width 14.1 % (11.6-14.8) 13.9 % (11.6-14.8) 15.4 % (11.6-14.8) Platelet Count 300 K/UL (150-450) 262 K/UL (150-450) 288 K/UL (150-450) Mean Platelet Volume 5.1 FL (6.5-10.1) 5.6 FL (6.5-10.1) 5.4 FL (6.5-10.1) Neutrophils (%) (Auto) % (45.0-75.0) 69.4 % (45.0-75.0) 58.2 % (45.0-75.0) Lymphocytes (%) (Auto) % (20.0-45.0) 19.4 % (20.0-45.0) 25.9 % (20.0-45.0) Monocytes (%) (Auto) % (1.0-10.0) 9.2 % (1.0-10.0) 11.0 % (1.0-10.0) Eosinophils (%) (Auto) % (0.0-3.0) 1.2 % (0.0-3.0) 4.0 % (0.0-3.0) Basophils (%) (Auto) % (0.0-2.0) 0.8 % (0.0-2.0) 0.9 % (0.0-2.0) Differential Total Cells Counted 100 Neutrophils % (Manual) 78 % (45-75) Lymphocytes % (Manual) 15 % (20-45) Monocytes % (Manual) 6 % (1-10) Eosinophils % (Manual) 1 % (0-3) Basophils % (Manual) 0 % (0-2) Band Neutrophils 0 % (0-8) Platelet Estimate Adequate Platelet Morphology Normal Hypochromasia 1+ Anisocytosis 1+ Sodium Level 144 MMOL/L (136-145) 141 MMOL/L (136-145) 148 MMOL/L (136-145) Potassium Level 3.0 MMOL/L (3.5-5.1) 3.0 MMOL/L (3.5-5.1) 4.8 MMOL/L (3.5-5.1) Chloride Level 107 MMOL/L (98-107) 106 MMOL/L (98-107) 112 MMOL/L (98-107) Carbon Dioxide Level 29 MMOL/L (21-32) 27 MMOL/L (21-32) 29 MMOL/L (21-32) Anion Gap 9 mmol/L (5-15) 8 mmol/L (5-15) 7 mmol/L (5-15) Blood Urea Nitrogen 12 mg/dL (7-18) 10 mg/dL (7-18) 11 mg/dL (7-18) Creatinine 0.9 MG/DL (0.55-1.30) 0.8 MG/DL (0.55-1.30) 1.0 MG/DL (0.55-1.30) Estimat Glomerular Filtration Rate > 60 mL/min (>60) > 60 mL/min (>60) 55.1 mL/min (>60) Glucose Level 173 MG/DL (74-106) 180 MG/DL (74-106) 149 MG/DL (74-106) Calcium Level 7.3 MG/DL (8.5-10.1) 7.6 MG/DL (8.5-10.1) 8.0 MG/DL (8.5-10.1) Phosphorus Level 2.0 MG/DL (2.5-4.9) 2.7 MG/DL (2.5-4.9) 3.0 MG/DL (2.5-4.9) Magnesium Level 1.4 MG/DL (1.8-2.4) 1.9 MG/DL (1.8-2.4) 1.5 MG/DL (1.8-2.4) Total Bilirubin 0.2 MG/DL (0.2-1.0) 0.3 MG/DL (0.2-1.0) 0.3 MG/DL (0.2-1.0) Aspartate Amino Transf (AST/SGOT) 25 U/L (15-37) 25 U/L (15-37) 21 U/L (15-37) Alanine Aminotransferase (ALT/SGPT) 34 U/L (12-78) 26 U/L (12-78) 23 U/L (12-78) Alkaline Phosphatase 44 U/L (46-116) 44 U/L (46-116) 44 U/L (46-116) C-Reactive Protein, Quantitative 3.0 mg/dL (0.00-0.90) 5.1 mg/dL (0.00-0.90) 2.6 mg/dL (0.00-0.90) Total Protein 6.1 G/DL (6.4-8.2) 5.9 G/DL (6.4-8.2) 6.1 G/DL (6.4-8.2) Albumin 2.5 G/DL (3.4-5.0) 2.3 G/DL (3.4-5.0) 2.2 G/DL (3.4-5.0) Globulin 3.6 g/dL 3.6 g/dL 3.9 g/dL Albumin/Globulin Ratio 0.7 (1.0-2.7) 0.6 (1.0-2.7) 0.6 (1.0-2.7) Uric Acid 3.4 MG/DL (2.6-7.2) Pro-B-Type Natriuretic Peptide 9065 pg/mL (0-125) 8978 pg/mL (0-125) Height (Feet): 5 Height (Inches): 1.00 Weight (Pounds): 120 Objective Physical Exam Vitals: reviewed General: alert, non-toxic, thin, other - Frail, Chronically Ill Head: normocephalic, atraumatic Heent: bilateral eye normal inspection, bilateral eye PERRl Respiratory: lungs clear, normal breath sounds, V mask++ Cardiovascular: regular rate, rhythm, no edema Gi: non tender, soft, decreased bowel sounds Gu: no CVA tenderness Msk: no calf tenderness, + Atrophy Neuro: alert, sensory intact, w motor weakness Psychiatric: mood/affect normal Skin: ++ Danie Jackson MD May 17, 2019 08:48
[2019-05-17] MEDS: Docusate 100mg cap ORAL SCH ×3 (09:00→16:41)
[2019-05-17] MEDS: Citalopram Hydrobromide 10mg Tab ORAL SCH (09:26)
[2019-05-17] MEDS: Valproic Acid 250mg/5ml Liquid NG SCH ×2 (09:27→20:59)
--- NOTE | 2019-05-17 10:05 | Pulmonology Progress Note ---
Assessment/Plan Assessment/Plan Pulmonary Progress Note HPI: The patient is a 68 year old woman, [place] resident with past medical history of Parkinsons Disease, focal weakness, Diabetes, Mood Disorder, Seizure History, Hyperlipidemia, Constipation admitted with UTI/sepsis, noted to be hypotensive on admission, have significantly elevated Lactic Acid Levels, Positive Urine Ketones, Acute Renal Insufficiency, Anemia. The patient has been having fevers, vomiting for two days, had c/o abdominal pain and diarrhea for two days [employer]. No rectal bleeding noted. No shortness of breath, orthopnea [employer]. No wheezing, cough or chest pain [employer]. Admission EKG note LA enlargement, worsening SOB since admission despite use HHN. BP improved with IV fluids, being diuresed PRN. ABG improved, Glucose improved on ISS On puree diet per SR evaluation, remains on 55% venturi mask Fluid overloaded with significantly elevated BNP level PAST MEDICAL HISTORY: Parkinsons Disease, focal weakness, Diabetes, Mood Disorder, Depression, Seizure History, Hyperlipidemia, Constipation, Anemia PAST SURGICAL HISTORY: Tubal ligation. SOCIAL HISTORY: No history of smoking. Denies history of drug or alcohol abuse. ALLERGIES: No known allergies. 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 On antibiotics per ID, HHN, O2 PRN, ISS FAMILY HISTORY: Noncontributory. REVIEW OF SYSTEMS: Negative aside from above PHYSICAL EXAMINATION: VITAL SIGNS NOTED HEENT: NCAT, moist mm. NECK: No lymphadenopathy, no masses CHEST: Reduced basal BS. CARDIOVASCULAR: Regular rate and rhythm. No murmurs or extra sounds. GASTROINTESTINAL: Soft, nontender, nondistended. No organomegaly. EXTREMITIES: Mild edema. 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 [employer]: Priented, tremor, right arm weaker than left, no seizures, sensation intact ASSESSMENT: Sepsis, vomiting, and diarrhea Volume overloaded Pneumonia - possible aspiration On modified diet H/o constipation Parkinsons Disease Previous h/o focal weakness Diabetes on ISS Anemia Mood Disorder - Depression Seizure History Hyperlipidemia PLAN: - Diurese PRN - Lasix 20mg IV Q12 - Not on maintenance IVF - Repeat NPA level - CXR - HHN - O2 PRN - wean as possible, prefers FM - does not like NC O2, current FIO2 55% - Echocardiogram still pending - PPX - Antibiotics per ID - [employer]ING [employer]ER Medications - Lantus/ISS given hyperglycemia, Increased AG and Ketones now improved - BiPAP PRN and QHS - ST evaluation of swallow noted - GI following - Monitor labs/ABG PRN - Heme following for anemia DW RN/PMD EKG: LA enlargement CXR: No acute disease initially, currently: extensive bilateral interstitial and airspace disease, likely pneumonia although edema also possibility. Suspect small left and possible trace right pleural effusions KUB: Normal LE Dupplex: Negative BC : Negative UA: Positive for UTI NPA: >2400 Subjective ROS Limited/Unobtainable: No Allergies: Coded Allergies: No Known Allergies (Unverified , 11/08/15) Objective Last 24 Hour Vital Signs Date Time Temp Pulse Resp B/P (MAP) Pulse Ox O2 Delivery O2 Flow Rate FiO2 05/17/19 08:00 97.4 89 20 156/85 (108) 98 05/17/19 07:45 95 18 100 Venturi Mask 14.0 55 94 18 98 05/17/19 07:45 98 Venturi Mask 14.0 55 05/17/19 04:00 98.1 99 18 136/86 (103) 96 05/17/19 04:00 93 05/17/19 03:23 100 17 100 Venturi Mask 14.0 55 94 18 99 05/17/19 00:00 97.6 103 18 139/88 (105) 98 05/17/19 00:00 92 05/16/19 23:48 106 17 97 Venturi Mask 14.0 55 104 18 94 05/16/19 21:15 84 Venturi Mask 55 05/16/19 21:00 Venturi Mask 14.0 05/16/19 20:00 111 05/16/19 20:00 97.2 100 20 133/79 (97) 98 05/16/19 16:00 98.1 91 18 120/76 (91) 99 05/16/19 16:00 100 05/16/19 15:18 107 20 98 Venturi Mask 14.0 55 94 20 92 05/16/19 12:00 98.0 99 19 140/87 (104) 99 05/16/19 12:00 102 05/16/19 11:44 110 20 98 Venturi Mask 14.0 55 102 24 90 Intake and Output 05/16/19 05/17/19 19:00 07:00 Intake Total 857.5 ml 170.0 ml Balance 857.5 ml 170.0 ml Intake Oral 775 ml IV Total 82.5 ml 170.0 ml # Voids 4 # Bowel Movements 2 Microbiology Date/Time Source Procedure Growth Status 05/15/19 03:10 Nasal Nares - Final Complete 05/15/19 03:10 Nasal Nares - Final Complete Laboratory Tests 05/17/19 06:35: White Blood Count 10.2, Red Blood Count 2.77L, Hemoglobin 8.0L, Hematocrit 23.9L , Mean Corpuscular Volume 86, Mean Corpuscular Hemoglobin 28.9, Mean Corpuscular Hemoglobin Concent 33.5, Red Cell Distribution Width 15.4H, Platelet Count 288, Mean Platelet Volume 5.4L, Neutrophils (%) (Auto) 58.2, Lymphocytes (%) (Auto) 25.9, Monocytes (%) (Auto) 11.0H, Eosinophils (%) (Auto) 4.0H, Basophils (%) (Auto) 0.9, Sodium Level 148H, Potassium Level 4.8, Chloride Level 112H, Carbon Dioxide Level 29, Anion Gap 7, Blood Urea Nitrogen 11, Creatinine 1.0, Estimat Glomerular Filtration Rate 55.1, Glucose Level 149H , Calcium Level 8.0L, Phosphorus Level 3.0, Magnesium Level 1.5L, Total Bilirubin 0.3, Aspartate Amino Transf (AST/SGOT) 21, Alanine Aminotransferase ( ALT/SGPT) 23, Alkaline Phosphatase 44L, C-Reactive Protein, Quantitative 2.6H, Pro-B-Type Natriuretic Peptide 8978H, Total Protein 6.1L, Albumin 2.2L, Globulin 3.9, Albumin/Globulin Ratio 0.6L Current Medications Medications (Trade) Dose Ordered Sig/Tenzin Route PRN Reason Start Time Stop Time Status Last Admin Dose Admin Albuterol/ Ipratropium (Albuterol/ Ipratropium) 3 ml Q4H PRN N Shortness of Breath 05/13/19 09:00 05/18/19 08:59 05/16/19 11:44 Albuterol/ Ipratropium (Albuterol/ Ipratropium) 3 ml Q4HRT HHN 05/13/19 11:00 05/18/19 10:59 05/17/19 07:35 Citalopram Hydrobromide (celeXA) 20 mg DAILY ORAL 05/14/19 15:30 06/13/19 15:29 05/17/19 09:26 Dextrose (Dextrose 50%) 25 ml Q30M PRN IV Hypoglycemia 05/13/19 22:00 06/12/19 21:59 Dextrose (Dextrose 50%) 50 ml Q30M PRN IV Hypoglycemia 05/13/19 22:00 06/12/19 21:59 Docusate Sodium (Colace) 100 mg THREE TIMES A DAY ORAL 05/15/19 13:00 06/14/19 12:59 05/16/19 08:15 Insulin Aspart (NovoLOG) BEFORE MEALS AND HS SUBQ 05/14/19 06:30 06/13/19 06:29 05/17/19 06:26 Insulin Detemir (Levemir) 10 units Q24H SUBQ 05/13/19 22:00 06/12/19 21:59 05/16/19 22:03 Iron Sucrose 100 mg/Sodium Chloride 60 ml @ 240 mls/hr BEDTIME IV 05/14/19 21:00 05/18/19 21:14 05/16/19 22:04 Magnesium Sulfate 100 ml @ 100 mls/hr Q1H IVPB 05/17/19 08:30 05/17/19 12:29 05/17/19 09:25 Morphine Sulfate (Morphine Sulfate) 1 mg Q6H PRN IVP For Pain 05/13/19 09:30 05/20/19 09:29 05/15/19 21:29 Nateglinide (Starlix) 60 mg TIAC ORAL 05/13/19 11:30 06/12/19 11:29 05/17/19 06:25 Ondansetron HCl (Zofran) 4 mg Q6H PRN IVP Nausea & Vomiting 05/12/19 09:45 06/11/19 09:44 05/16/19 22:04 Pantoprazole (Protonix) 40 mg BID ORAL 05/13/19 18:00 06/13/19 08:59 05/17/19 09:26 Piperacillin Sod/ Tazobactam Sod 3.375 gm/Sodium Chloride 110 ml @ 27.5 mls/hr Q8H IVPB 05/12/19 16:00 05/19/19 15:59 05/17/19 09:36 Potassium Chloride (K-Dur) 40 meq TWICE A DAY ORAL 05/15/19 11:30 06/14/19 11:29 05/17/19 09:26 Sodium Chloride 550 ml @ 0 mls/hr Q0M IV 05/12/19 14:00 06/11/19 13:59 Valproic Acid (Depakene) 125 mg EVERY 12 HOURS NG 05/14/19 21:00 06/13/19 20:59 05/17/19 09:27 Walker Blank MD May 17, 2019 10:05
--- NOTE | 2019-05-17 10:23 | Cardiac Electrophysiology PN ---
Subjective Subjective [id number] Objective Last 24 Hour Vital Signs Date Time Temp Pulse Resp B/P (MAP) Pulse Ox O2 Delivery O2 Flow Rate FiO2 05/17/19 08:00 97.4 89 20 156/85 (108) 98 05/17/19 07:45 95 18 100 Venturi Mask 14.0 55 94 18 98 05/17/19 07:45 98 Venturi Mask 14.0 55 05/17/19 04:00 98.1 99 18 136/86 (103) 96 05/17/19 04:00 93 05/17/19 03:23 100 17 100 Venturi Mask 14.0 55 94 18 99 05/17/19 00:00 97.6 103 18 139/88 (105) 98 05/17/19 00:00 92 05/16/19 23:48 106 17 97 Venturi Mask 14.0 55 104 18 94 05/16/19 21:15 84 Venturi Mask 55 05/16/19 21:00 Venturi Mask 14.0 05/16/19 20:00 111 05/16/19 20:00 97.2 100 20 133/79 (97) 98 05/16/19 16:00 98.1 91 18 120/76 (91) 99 05/16/19 16:00 100 05/16/19 15:18 107 20 98 Venturi Mask 14.0 55 94 20 92 05/16/19 12:00 98.0 99 19 140/87 (104) 99 05/16/19 12:00 102 05/16/19 11:44 110 20 98 Venturi Mask 14.0 55 102 24 90 Intake and Output 05/16/19 05/17/19 19:00 07:00 Intake Total 857.5 ml 170.0 ml Balance 857.5 ml 170.0 ml Intake Oral 775 ml IV Total 82.5 ml 170.0 ml # Voids 4 # Bowel Movements 2 Laboratory Tests Test 05/17/19 06:35 White Blood Count 10.2 K/UL (4.8-10.8) Red Blood Count 2.77 M/UL (4.20-5.40) L Hemoglobin 8.0 G/DL (12.0-16.0) L Hematocrit 23.9 % (37.0-47.0) L Mean Corpuscular Volume 86 FL (80-99) Mean Corpuscular Hemoglobin 28.9 PG (27.0-31.0) Mean Corpuscular Hemoglobin Concent 33.5 G/DL (32.0-36.0) Red Cell Distribution Width 15.4 % (11.6-14.8) H Platelet Count 288 K/UL (150-450) Mean Platelet Volume 5.4 FL (6.5-10.1) L Neutrophils (%) (Auto) 58.2 % (45.0-75.0) Lymphocytes (%) (Auto) 25.9 % (20.0-45.0) Monocytes (%) (Auto) 11.0 % (1.0-10.0) H Eosinophils (%) (Auto) 4.0 % (0.0-3.0) H Basophils (%) (Auto) 0.9 % (0.0-2.0) Sodium Level 148 MMOL/L (136-145) H Potassium Level 4.8 MMOL/L (3.5-5.1) Chloride Level 112 MMOL/L (98-107) H Carbon Dioxide Level 29 MMOL/L (21-32) Anion Gap 7 mmol/L (5-15) Blood Urea Nitrogen 11 mg/dL (7-18) Creatinine 1.0 MG/DL (0.55-1.30) Estimat Glomerular Filtration Rate 55.1 mL/min (>60) Glucose Level 149 MG/DL (74-106) H Calcium Level 8.0 MG/DL (8.5-10.1) L Phosphorus Level 3.0 MG/DL (2.5-4.9) Magnesium Level 1.5 MG/DL (1.8-2.4) L Total Bilirubin 0.3 MG/DL (0.2-1.0) Aspartate Amino Transf (AST/SGOT) 21 U/L (15-37) Alanine Aminotransferase (ALT/SGPT) 23 U/L (12-78) Alkaline Phosphatase 44 U/L (46-116) L C-Reactive Protein, Quantitative 2.6 mg/dL (0.00-0.90) H Pro-B-Type Natriuretic Peptide 8978 pg/mL (0-125) H Total Protein 6.1 G/DL (6.4-8.2) L Albumin 2.2 G/DL (3.4-5.0) L Globulin 3.9 g/dL Albumin/Globulin Ratio 0.6 (1.0-2.7) L Microbiology Date/Time Source Procedure Growth Status 05/15/19 03:10 Nasal Nares - Final Complete 05/15/19 03:10 Nasal Nares - Final Complete Noe Galdamez MD May 17, 2019 10:23
--- NOTE | 2019-05-17 10:50 | Nephrology Progress Note ---
Assessment/Plan Problem List: (1) Azotemia (2) Type 2 diabetes mellitus (3) COPD exacerbation (4) Elevated lactic acid level (5) Pulmonary hypertension Assessment: severe Assessment Renal failure COPD Acute- dehydration , ? CKD underlying UTI , High Lactic HyperKalemia DM Anemia DNR Plan correct mag and K and Phos- On Lasix and Sildenafil now ABG noted 2D echo noted- Pulm HTN DC Hydrate- Pulm toilet Anemia castro PO protonix Monitor renal parameters Subjective ROS Limited/Unobtainable: No Constitutional: Reports: malaise Objective Objective Last 24 Hour Vital Signs Date Time Temp Pulse Resp B/P (MAP) Pulse Ox O2 Delivery O2 Flow Rate FiO2 05/17/19 09:00 Venturi Mask 14.0 05/17/19 08:00 91 05/17/19 08:00 97.4 89 20 156/85 (108) 98 05/17/19 07:45 95 18 100 Venturi Mask 14.0 55 94 18 98 05/17/19 07:45 98 Venturi Mask 14.0 55 05/17/19 04:00 98.1 99 18 136/86 (103) 96 05/17/19 04:00 93 05/17/19 03:23 100 17 100 Venturi Mask 14.0 55 94 18 99 05/17/19 00:00 97.6 103 18 139/88 (105) 98 05/17/19 00:00 92 05/16/19 23:48 106 17 97 Venturi Mask 14.0 55 104 18 94 05/16/19 21:15 84 Venturi Mask 55 05/16/19 21:00 Venturi Mask 14.0 05/16/19 20:00 111 05/16/19 20:00 97.2 100 20 133/79 (97) 98 05/16/19 16:00 98.1 91 18 120/76 (91) 99 05/16/19 16:00 100 05/16/19 15:18 107 20 98 Venturi Mask 14.0 55 94 20 92 05/16/19 12:00 98.0 99 19 140/87 (104) 99 05/16/19 12:00 102 05/16/19 11:44 110 20 98 Venturi Mask 14.0 55 102 24 90 Intake and Output 05/16/19 05/17/19 19:00 07:00 Intake Total 857.5 ml 170.0 ml Balance 857.5 ml 170.0 ml Intake Oral 775 ml IV Total 82.5 ml 170.0 ml # Voids 4 # Bowel Movements 2 Laboratory Tests 05/17/19 06:35: White Blood Count 10.2, Red Blood Count 2.77L, Hemoglobin 8.0L, Hematocrit 23.9L , Mean Corpuscular Volume 86, Mean Corpuscular Hemoglobin 28.9, Mean Corpuscular Hemoglobin Concent 33.5, Red Cell Distribution Width 15.4H, Platelet Count 288, Mean Platelet Volume 5.4L, Neutrophils (%) (Auto) 58.2, Lymphocytes (%) (Auto) 25.9, Monocytes (%) (Auto) 11.0H, Eosinophils (%) (Auto) 4.0H, Basophils (%) (Auto) 0.9, Sodium Level 148H, Potassium Level 4.8, Chloride Level 112H, Carbon Dioxide Level 29, Anion Gap 7, Blood Urea Nitrogen 11, Creatinine 1.0, Estimat Glomerular Filtration Rate 55.1, Glucose Level 149H , Calcium Level 8.0L, Phosphorus Level 3.0, Magnesium Level 1.5L, Total Bilirubin 0.3, Aspartate Amino Transf (AST/SGOT) 21, Alanine Aminotransferase ( ALT/SGPT) 23, Alkaline Phosphatase 44L, C-Reactive Protein, Quantitative 2.6H, Pro-B-Type Natriuretic Peptide 8978H, Total Protein 6.1L, Albumin 2.2L, Globulin 3.9, Albumin/Globulin Ratio 0.6L Height (Feet): 5 Height (Inches): 1.00 Weight (Pounds): 120 General Appearance: mild distress Cardiovascular: tachycardia Respiratory/Chest: decreased breath sounds Abdomen: distended José Miguel Calvert MD May 17, 2019 10:50
[2019-05-17 12:00] VITALS: BP 129/86
--- NOTE | 2019-05-17 12:11 | Infectious Diseases Prog Note ---
Assessment/Plan Assessment/Plan IMPRESSION: Pneumonia Leukocytosis, resolved Acute renal failure. resolved diabetes mellitus, hypertension, COPD, anemia. RECOMMENDATION: Continue Zosyn. Subjective ROS Limited/Unobtainable: No Constitutional: Reports: other - Dosen't feel good Respiratory: Reports: shortness of breath; Denies: dry cough, productive cough Cardiovascular: Reports: no symptoms Gastrointestinal/Abdominal: Reports: no symptoms Genitourinary: Reports: no symptoms Allergies: Coded Allergies: No Known Allergies (Unverified , 11/08/15) Objective Vital Signs Last 24 Hour Vital Signs Date Time Temp Pulse Resp B/P (MAP) Pulse Ox O2 Delivery O2 Flow Rate FiO2 05/17/19 11:31 103 18 95 Venturi Mask 14.0 55 88 18 97 05/17/19 09:00 Venturi Mask 14.0 05/17/19 08:00 91 05/17/19 08:00 97.4 89 20 156/85 (108) 98 05/17/19 07:45 95 18 100 Venturi Mask 14.0 55 94 18 98 05/17/19 07:45 98 Venturi Mask 14.0 55 05/17/19 04:00 98.1 99 18 136/86 (103) 96 05/17/19 04:00 93 05/17/19 03:23 100 17 100 Venturi Mask 14.0 55 94 18 99 05/17/19 00:00 97.6 103 18 139/88 (105) 98 05/17/19 00:00 92 05/16/19 23:48 106 17 97 Venturi Mask 14.0 55 104 18 94 05/16/19 21:15 84 Venturi Mask 55 05/16/19 21:00 Venturi Mask 14.0 05/16/19 20:00 111 05/16/19 20:00 97.2 100 20 133/79 (97) 98 05/16/19 16:00 98.1 91 18 120/76 (91) 99 05/16/19 16:00 100 05/16/19 15:18 107 20 98 Venturi Mask 14.0 55 94 20 92 Height (Feet): 5 Height (Inches): 1.00 Weight (Pounds): 120 HEENT: mucous membranes moist Respiratory/Chest: lungs clear, other - oxygen by mask Cardiovascular: tachycardia Abdomen: soft, non tender Extremities: no edema Neurologic/Psychiatric: alert, responsive Microbiology Date/Time Source Procedure Growth Status 05/15/19 03:10 Nasal Nares - Final Complete 05/15/19 03:10 Nasal Nares - Final Complete Laboratory Tests Test 05/17/19 06:35 White Blood Count 10.2 K/UL (4.8-10.8) Red Blood Count 2.77 M/UL (4.20-5.40) L Hemoglobin 8.0 G/DL (12.0-16.0) L Hematocrit 23.9 % (37.0-47.0) L Mean Corpuscular Volume 86 FL (80-99) Mean Corpuscular Hemoglobin 28.9 PG (27.0-31.0) Mean Corpuscular Hemoglobin Concent 33.5 G/DL (32.0-36.0) Red Cell Distribution Width 15.4 % (11.6-14.8) H Platelet Count 288 K/UL (150-450) Mean Platelet Volume 5.4 FL (6.5-10.1) L Neutrophils (%) (Auto) 58.2 % (45.0-75.0) Lymphocytes (%) (Auto) 25.9 % (20.0-45.0) Monocytes (%) (Auto) 11.0 % (1.0-10.0) H Eosinophils (%) (Auto) 4.0 % (0.0-3.0) H Basophils (%) (Auto) 0.9 % (0.0-2.0) Sodium Level 148 MMOL/L (136-145) H Potassium Level 4.8 MMOL/L (3.5-5.1) Chloride Level 112 MMOL/L (98-107) H Carbon Dioxide Level 29 MMOL/L (21-32) Anion Gap 7 mmol/L (5-15) Blood Urea Nitrogen 11 mg/dL (7-18) Creatinine 1.0 MG/DL (0.55-1.30) Estimat Glomerular Filtration Rate 55.1 mL/min (>60) Glucose Level 149 MG/DL (74-106) H Calcium Level 8.0 MG/DL (8.5-10.1) L Phosphorus Level 3.0 MG/DL (2.5-4.9) Magnesium Level 1.5 MG/DL (1.8-2.4) L Total Bilirubin 0.3 MG/DL (0.2-1.0) Aspartate Amino Transf (AST/SGOT) 21 U/L (15-37) Alanine Aminotransferase (ALT/SGPT) 23 U/L (12-78) Alkaline Phosphatase 44 U/L (46-116) L C-Reactive Protein, Quantitative 2.6 mg/dL (0.00-0.90) H Pro-B-Type Natriuretic Peptide 8978 pg/mL (0-125) H Total Protein 6.1 G/DL (6.4-8.2) L Albumin 2.2 G/DL (3.4-5.0) L Globulin 3.9 g/dL Albumin/Globulin Ratio 0.6 (1.0-2.7) L Current Medications Medications (Trade) Dose Ordered Sig/Tenzin Route PRN Reason Start Time Stop Time Status Last Admin Dose Admin Albuterol/ Ipratropium (Albuterol/ Ipratropium) 3 ml Q4H PRN HHN Shortness of Breath 05/13/19 09:00 05/18/19 08:59 05/16/19 11:44 Albuterol/ Ipratropium (Albuterol/ Ipratropium) 3 ml Q4HRT HHN 05/13/19 11:00 05/18/19 10:59 05/17/19 11:21 Citalopram Hydrobromide (celeXA) 20 mg DAILY ORAL 05/14/19 15:30 06/13/19 15:29 05/17/19 09:26 Dextrose (Dextrose 50%) 25 ml Q30M PRN IV Hypoglycemia 05/13/19 22:00 06/12/19 21:59 Dextrose (Dextrose 50%) 50 ml Q30M PRN IV Hypoglycemia 05/13/19 22:00 06/12/19 21:59 Docusate Sodium (Colace) 100 mg THREE TIMES A DAY ORAL 05/15/19 13:00 06/14/19 12:59 05/16/19 08:15 Furosemide (Lasix) 40 mg EVERY 12 HOURS IV 05/17/19 10:30 06/16/19 10:29 05/17/19 10:36 Insulin Aspart (NovoLOG) BEFORE MEALS AND HS SUBQ 05/14/19 06:30 06/13/19 06:29 05/17/19 06:26 Insulin Detemir (Levemir) 10 units Q24H SUBQ 05/13/19 22:00 06/12/19 21:59 05/16/19 22:03 Iron Sucrose 100 mg/Sodium Chloride 60 ml @ 240 mls/hr BEDTIME IV 05/14/19 21:00 05/18/19 21:14 05/16/19 22:04 Magnesium Sulfate 100 ml @ 100 mls/hr Q1H IVPB 05/17/19 08:30 05/17/19 12:29 05/17/19 11:35 Morphine Sulfate (Morphine Sulfate) 1 mg Q6H PRN IVP For Pain 05/13/19 09:30 05/20/19 09:29 05/15/19 21:29 Nateglinide (Starlix) 60 mg TIAC ORAL 05/13/19 11:30 06/12/19 11:29 05/17/19 11:32 Ondansetron HCl (Zofran) 4 mg Q6H PRN IVP Nausea & Vomiting 05/12/19 09:45 06/11/19 09:44 05/16/19 22:04 Pantoprazole (Protonix) 40 mg BID ORAL 05/13/19 18:00 06/13/19 08:59 05/17/19 09:26 Piperacillin Sod/ Tazobactam Sod 3.375 gm/Sodium Chloride 110 ml @ 27.5 mls/hr Q8H IVPB 05/12/19 16:00 05/19/19 15:59 05/17/19 09:36 Potassium Chloride (K-Dur) 40 meq TWICE A DAY ORAL 05/15/19 11:30 06/14/19 11:29 05/17/19 09:26 Sildenafil Citrate (Revatio) 20 mg THREE TIMES A DAY ORAL 05/17/19 13:00 06/16/19 12:59 Valproic Acid (Depakene) 125 mg EVERY 12 HOURS NG 05/14/19 21:00 06/13/19 20:59 05/17/19 09:27 Rogelio Martinez MD May 17, 2019 12:11
--- NOTE | 2019-05-17 13:03 | NUR ---
CASE MANAGEMENT: REVIEW 05/17/2019 SI:SEPSIS. ELEVATED LACTID ACID.ANEMIA.UTI. PLEURAL EFFUSION RENAL INSUFFICIENCY. DIABETES 97.4 89 20 156/85 98% ON VENTURI MASK 14 L H/H 8.0/23.9 NA+ 148 CL-112 BG 149 CA+8.0 MG 1.5 ALK-PHOS 44 BNP 8978 C-REC PROT. 2.6 IS:IV ZOSYN Q8HR IV MG SULFATE X4BAGS IV LASIX BID DEPAKENE NG BID K-DUR PO BID IV VENOFER QHS X 5BAGS STARLIX PO TIAC NOVOLOG SQ AC&HS LEVEMIR SQ Q24HR ALBUTEROL HHN Q4HR \: 2E TELE UNIT DCP: FROM [facility] PLAN: REPEAT CHEST X-RAY
[2019-05-17] MEDS: Revatio 20mg tab ORAL SCH ×2 (14:05→17:07)
[2019-05-17 16:00] VITALS: BP 121/65
--- NOTE | 2019-05-17 16:31 | Diagnostic Imaging Report ---
Indication: Dyspnea Comparison: 05/13/2019 A single view chest radiograph was obtained. Findings: Extensive interstitial opacities present bilaterally. Airspace disease also demonstrated at the lung bases and right upper lobe. Heart size remains stable. There is a left pleural effusion. IMPRESSION: No change from the prior examination.
--- NOTE | 2019-05-17 19:20 | NUR ---
NURSE NOTES: Received report from NEFTALI Chan. Patient is awake, lying in semi barrett's; resting comfortably. A/OX4. Denies pain at this time. No signs of acute distress noted. On venturi mask FiO2 55% @ 14LPM. Checked IV site and flushed. No erythema, bleeding or infiltration noted. On padded siderails for seizure precaution. Bed at lowest position, brakes on, siderailsx3. Call light within reach. Will continue to monitor.
--- NOTE | 2019-05-17 19:21 | NUR ---
HAND-OFF: Report given to NEFTALI Floyd.
[2019-05-17 20:00] VITALS: BP 132/88
--- NOTE | 2019-05-17 21:00 | Consultation ---
DATE OF CONSULTATION: 05/17/2019 CARDIOLOGY CONSULTATION CONSULTING PHYSICIAN: Noe Galdamez M.D. REFERRING PHYSICIAN: Amelie Rios M.D. REASON FOR CONSULTATION: Shortness of breath. HISTORY OF PRESENT ILLNESS: The patient is a 68-year-old lady with a history of hypertension, COPD, and severe pulmonary hypertension as well as diabetes, who was admitted on May 12 for diarrhea and vomiting. The patient has been short of breath and Cardiology consultation was obtained for further evaluation and management. The patient is still needing high oxygen. REVIEW OF SYSTEMS: Negative other than what was mentioned in history of present illness. PAST MEDICAL HISTORY: As mentioned above. PAST SURGICAL HISTORY: Tubal ligation. SOCIAL HISTORY: Does not smoke or drink alcohol. ALLERGIES: No known drug allergies. PHYSICAL EXAMINATION: VITAL SIGNS: Show blood pressure 153/85, pulse 89, respirations 18, and temperature 97.4. HEAD AND NECK: Shows positive JVD. LUNGS: Coarse rhonchi. CARDIOVASCULAR: Shows regular S1 and S2 with no gallop. ABDOMEN: Soft. EXTREMITIES: No pitting edema. LABORATORY AND DIAGNOSTIC DATA: Her echocardiogram showed EF of 55% to 60% with severe pulmonary hypertension with PA pressure of 123, moderate MR, and diastolic dysfunction. EKG showed sinus rhythm. Her labs show white count of 10.2, hemoglobin 8, hematocrit 24, and platelet count of 288,000. Sodium 140, potassium 4.8, BUN of 11, and creatinine of 1. Glucose of 149. BNP is 9000. Mildly elevated troponin. ASSESSMENT AND PLAN: 1. Shortness of breath, likely due to the patient's severe pulmonary hypertension as well as congestive heart failure with diastolic dysfunction. BNP is 9000. We will start the patient on Lasix 40 mg IV twice a day. The patient may benefit from sildenafil 20 mg three times a day for pulmonary hypertension as well. 2. Severe pulmonary hypertension with PA pressure of 123. 3. COPD, on oxygen. Evaluation by Dr. Blank. 4. Pneumonia, leukocytosis, and diabetes. 5. Anemia. Thank you very much, Dr. Rios, for allowing me to participate in the care of this patient. Please do not hesitate to contact me for any questions regarding my evaluation. Noe Galdamez M.D. DR: SANJAY JOB#: [id number] CC:
[2019-05-17] MEDS: Iron Sucrose 100 MG in NS 55 ML IV SCH (21:01)
[2019-05-17] MEDS: Levemir Flexpen SUBQ SCH (21:03)
--- NOTE | 2019-05-17 21:20 | General Progress Note ---
Assessment/Plan Status: progressing Assessment/Plan: Assessment - N/V - resolved - Sepsis - improved - lactic acidosis - improved - Renal failure - RAD Recommendations - Abx - IVF - po pureed - follow labs - Check OB Subjective Allergies: Coded Allergies: No Known Allergies (Unverified , 11/08/15) Subjective Feels OK tolerating PO Breathing better Objective Last 24 Hour Vital Signs Date Time Temp Pulse Resp B/P (MAP) Pulse Ox O2 Delivery O2 Flow Rate FiO2 05/17/19 19:52 84 18 97 Venturi Mask 14.0 55 05/17/19 19:42 86 18 96 Venturi Mask 14.0 55 05/17/19 19:42 96 Venturi Mask 14.0 55 05/17/19 16:00 96.6 86 19 121/65 (83) 96 05/17/19 16:00 87 05/17/19 15:43 88 18 96 Venturi Mask 14.0 55 80 18 95 05/17/19 12:00 98.1 108 18 129/86 (100) 91 05/17/19 12:00 100 05/17/19 11:31 103 18 95 Venturi Mask 14.0 55 88 18 97 05/17/19 09:00 Venturi Mask 14.0 05/17/19 08:00 91 05/17/19 08:00 97.4 89 20 156/85 (108) 98 05/17/19 07:45 95 18 100 Venturi Mask 14.0 55 94 18 98 05/17/19 07:45 98 Venturi Mask 14.0 55 05/17/19 04:00 98.1 99 18 136/86 (103) 96 05/17/19 04:00 93 05/17/19 03:23 100 17 100 Venturi Mask 14.0 55 94 18 99 05/17/19 00:00 97.6 103 18 139/88 (105) 98 05/17/19 00:00 92 05/16/19 23:48 106 17 97 Venturi Mask 14.0 55 104 18 94 Intake and Output 05/16/19 05/17/19 19:00 07:00 Intake Total 857.5 ml 170.0 ml Balance 857.5 ml 170.0 ml Intake Oral 775 ml IV Total 82.5 ml 170.0 ml # Voids 4 # Bowel Movements 2 Laboratory Tests 05/17/19 06:35: White Blood Count 10.2, Red Blood Count 2.77L, Hemoglobin 8.0L, Hematocrit 23.9L , Mean Corpuscular Volume 86, Mean Corpuscular Hemoglobin 28.9, Mean Corpuscular Hemoglobin Concent 33.5, Red Cell Distribution Width 15.4H, Platelet Count 288, Mean Platelet Volume 5.4L, Neutrophils (%) (Auto) 58.2, Lymphocytes (%) (Auto) 25.9, Monocytes (%) (Auto) 11.0H, Eosinophils (%) (Auto) 4.0H, Basophils (%) (Auto) 0.9, Sodium Level 148H, Potassium Level 4.8, Chloride Level 112H, Carbon Dioxide Level 29, Anion Gap 7, Blood Urea Nitrogen 11, Creatinine 1.0, Estimat Glomerular Filtration Rate 55.1, Glucose Level 149H , Calcium Level 8.0L, Phosphorus Level 3.0, Magnesium Level 1.5L, Total Bilirubin 0.3, Aspartate Amino Transf (AST/SGOT) 21, Alanine Aminotransferase ( ALT/SGPT) 23, Alkaline Phosphatase 44L, C-Reactive Protein, Quantitative 2.6H, Pro-B-Type Natriuretic Peptide 8978H, Total Protein 6.1L, Albumin 2.2L, Globulin 3.9, Albumin/Globulin Ratio 0.6L Height (Feet): 5 Height (Inches): 1.00 Weight (Pounds): 120 Objective WDWN AA woman NCAT supple Chest - some ronchi and wheeze RR abd soft NT ND no edema Sangeeta Bianchi MD May 17, 2019 21:20
--- NOTE | 2019-05-17 21:55 | General Progress Note ---
Assessment/Plan Problem List: (1) Constipation ICD Codes: K59.00 - Constipation, unspecified SNOMED: 35659889 (2) Renal insufficiency ICD Codes: N28.9 - Disorder of kidney and ureter, unspecified SNOMED: 020042564, 158930291 (3) COPD exacerbation ICD Codes: J44.1 - Chronic obstructive pulmonary disease with (acute) exacerbation SNOMED: 055570055 (4) UTI (urinary tract infection) ICD Codes: N39.0 - Urinary tract infection, site not specified SNOMED: 37223846 Qualifiers: Qualified Codes: N39.0 - Urinary tract infection, site not specified (5) Hyperlipidemia associated with type 2 diabetes mellitus ICD Codes: E11.69 - Type 2 diabetes mellitus with other specified complication ; E78.5 - Hyperlipidemia, unspecified SNOMED: 750248891, 794709921151 (6) Type 2 diabetes mellitus ICD Codes: E11.9 - Type 2 diabetes mellitus without complications SNOMED: 16673390, 458710865 Qualifiers: Qualified Codes: E11.9 - Type 2 diabetes mellitus without complications (7) Azotemia ICD Codes: R79.89 - Other specified abnormal findings of blood chemistry SNOMED: 149423691 (8) Cholelithiasis ICD Codes: K80.20 - Calculus of gallbladder without cholecystitis without obstruction SNOMED: 554409480 Status: progressing, unchanged Assessment/Plan: no vomitting niddm low k.replacment per renal ON HIGH OXYGEN NONREBREATHER severe pulm htn discussed w pulmonary and cardiology at length Subjective Respiratory: Reports: shortness of breath Allergies: Coded Allergies: No Known Allergies (Unverified , 11/08/15) Objective Last 24 Hour Vital Signs Date Time Temp Pulse Resp B/P (MAP) Pulse Ox O2 Delivery O2 Flow Rate FiO2 05/17/19 21:00 Venturi Mask 14.0 05/17/19 20:00 98.1 86 20 132/88 (103) 95 05/17/19 20:00 85 05/17/19 19:52 84 18 97 Venturi Mask 14.0 55 05/17/19 19:42 86 18 96 Venturi Mask 14.0 55 05/17/19 19:42 96 Venturi Mask 14.0 55 05/17/19 16:00 96.6 86 19 121/65 (83) 96 05/17/19 16:00 87 05/17/19 15:43 88 18 96 Venturi Mask 14.0 55 80 18 95 05/17/19 12:00 98.1 108 18 129/86 (100) 91 05/17/19 12:00 100 05/17/19 11:31 103 18 95 Venturi Mask 14.0 55 88 18 97 05/17/19 09:00 Venturi Mask 14.0 05/17/19 08:00 91 05/17/19 08:00 97.4 89 20 156/85 (108) 98 05/17/19 07:45 95 18 100 Venturi Mask 14.0 55 94 18 98 05/17/19 07:45 98 Venturi Mask 14.0 55 05/17/19 04:00 98.1 99 18 136/86 (103) 96 05/17/19 04:00 93 05/17/19 03:23 100 17 100 Venturi Mask 14.0 55 94 18 99 05/17/19 00:00 97.6 103 18 139/88 (105) 98 05/17/19 00:00 92 05/16/19 23:48 106 17 97 Venturi Mask 14.0 55 104 18 94 Intake and Output 05/16/19 05/17/19 19:00 07:00 Intake Total 857.5 ml 170.0 ml Balance 857.5 ml 170.0 ml Intake Oral 775 ml IV Total 82.5 ml 170.0 ml # Voids 4 # Bowel Movements 2 Laboratory Tests 05/17/19 06:35: White Blood Count 10.2, Red Blood Count 2.77L, Hemoglobin 8.0L, Hematocrit 23.9L , Mean Corpuscular Volume 86, Mean Corpuscular Hemoglobin 28.9, Mean Corpuscular Hemoglobin Concent 33.5, Red Cell Distribution Width 15.4H, Platelet Count 288, Mean Platelet Volume 5.4L, Neutrophils (%) (Auto) 58.2, Lymphocytes (%) (Auto) 25.9, Monocytes (%) (Auto) 11.0H, Eosinophils (%) (Auto) 4.0H, Basophils (%) (Auto) 0.9, Sodium Level 148H, Potassium Level 4.8, Chloride Level 112H, Carbon Dioxide Level 29, Anion Gap 7, Blood Urea Nitrogen 11, Creatinine 1.0, Estimat Glomerular Filtration Rate 55.1, Glucose Level 149H , Calcium Level 8.0L, Phosphorus Level 3.0, Magnesium Level 1.5L, Total Bilirubin 0.3, Aspartate Amino Transf (AST/SGOT) 21, Alanine Aminotransferase ( ALT/SGPT) 23, Alkaline Phosphatase 44L, C-Reactive Protein, Quantitative 2.6H, Pro-B-Type Natriuretic Peptide 8978H, Total Protein 6.1L, Albumin 2.2L, Globulin 3.9, Albumin/Globulin Ratio 0.6L Height (Feet): 5 Height (Inches): 1.00 Weight (Pounds): 120 Cardiovascular: normal rate Respiratory/Chest: lungs clear Amelie Rios MD May 17, 2019 21:55
[2019-05-18] VITALS: BP 122/60
--- NOTE | 2019-05-18 01:51 | NUR ---
NURSE NOTES: Resting throughout the night. No significant change of condition noted. Will continue to monitor.
--- NOTE | 2019-05-18 02:30 | Progress Note ---
DATE: 05/17/2019 SUBJECTIVE: The patient is in no acute distress. Has anxiety. Able to answer the questions appropriately. No behavior issues noted. Sleep appetite is adequate. MENTAL STATUS EXAMINATION: The patient is alert and oriented times self, place, situation, and date. Mood is depressed and anxious. Affect is constricted. Congruent with mood. Thought process is concrete. Thought content, no suicidal or homicidal ideation. ASSESSMENT: Major depressive disorder. PLAN: 1. Celexa 20 mg in the morning. 2. Valproic acid 125 mg b.i.d. 3. Provide the patient with reality orientation and supportive therapy. Stephanie Ybarra M.D. DR: JANE JOB#: [id number] CC:
[2019-05-18] MEDS: Albuterol/Ipratropium 3ml neb HHN SCH ×5 (03:25→22:57)
[2019-05-18 04:00] VITALS: BP 123/61
[2019-05-18] MEDS: NovoLOG Insulin Flexpen SUBQ SCH ×4 (05:43→21:00)
[2019-05-18] MEDS: Nateglinide 60mg tab ORAL SCH ×3 (05:44→17:33)
--- NOTE | 2019-05-18 07:00 | NUR ---
HAND-OFF: Report given to NEFTALI Chan. Plan of care endorsed.
--- NOTE | 2019-05-18 07:01 | Hematology/Onc Progress Note ---
Assessment/Plan Assessment/Plan Assessment and Recs: # Anemia of iron deficiency -- hgb remains low, anemia panel reviewed, ferritin is 20 --> start on iv iron x 5 days --> cea is 4.9 --> no hemolysis is seen --> r/o gi bleed, gi is on board --> blood tx: 1 unit on 05/15, --> hgb was 8.1-->8 # Leukocytosis with Sepsis likely due to uti --> has now improved --> levaquin started-->zosyn # Ryan on admission --> per renal on ivf # Elevated lactic acid level --> sp abx lecquin # Type 2 diabetes mellitus --> acucchecks qac and qhs --> iss, consider endo # Stage I decubitus ulcer sacrum # Dvt ppx scds Appreciate consultation and dw Rn Subjective Constitutional: Denies: no symptoms, chills, fever, malaise, weakness, other HEENT: Denies: no symptoms, eye pain, blurred vision, tearing, double vision, ear pain, ear discharge, nose pain, nose congestion, throat pain, throat swelling, mouth pain, mouth swelling, other Cardiovascular: Denies: no symptoms, chest pain, edema, irregular heart rate, lightheadedness, palpitations, syncope, other Gastrointestinal/Abdominal: Denies: no symptoms, abdomen distended, abdominal pain, black stools, tarry stools, blood in stool, constipated, diarrhea, difficulty swallowing, nausea, poor appetite, poor fluid intake, rectal bleeding , vomiting, other Genitourinary: Denies: no symptoms, burning, discharge, frequency, flank pain, hematuria, incontinence, pain, urgency, other Neurologic/Psychiatric: Denies: no symptoms, anxiety, depressed, emotional problems, headache, numbness, paresthesia, pre-existing deficit, seizure, tingling, tremors, weakness, other Endocrine: Denies: no symptoms, excessive sweating, flushing, intolerance to cold, intolerance to heat, increased hunger, increased thirst, increased urine, unexplained weight gain, unexplained weight loss, other Hematologic/Lymphatic: Denies: no symptoms, anemia, easy bleeding, easy bruising, adenopathy, other Allergies: Coded Allergies: No Known Allergies (Unverified , 11/08/15) Subjective 05/16: awake ad alert, v mask, s/p blood, on iv iron 05/17: no bleeding or chills noted, hgb remains stable, at hgb 8 05/18: remains on celexa, no bleeding, no chills, cbc reordered, no rxn to iv iron Objective Objective Current Medications Medications (Trade) Dose Ordered Sig/Tenzin Route PRN Reason Start Time Stop Time Status Last Admin Dose Admin Albuterol/ Ipratropium (Albuterol/ Ipratropium) 3 ml Q4H PRN HHN Shortness of Breath 05/13/19 09:00 05/18/19 08:59 05/16/19 11:44 Albuterol/ Ipratropium (Albuterol/ Ipratropium) 3 ml Q4HRT HHN 05/13/19 11:00 05/18/19 10:59 05/18/19 03:25 Citalopram Hydrobromide (celeXA) 20 mg DAILY ORAL 05/14/19 15:30 06/13/19 15:29 05/17/19 09:26 Dextrose (Dextrose 50%) 25 ml Q30M PRN IV Hypoglycemia 05/13/19 22:00 06/12/19 21:59 Dextrose (Dextrose 50%) 50 ml Q30M PRN IV Hypoglycemia 05/13/19 22:00 06/12/19 21:59 Docusate Sodium (Colace) 100 mg THREE TIMES A DAY ORAL 05/15/19 13:00 06/14/19 12:59 05/16/19 08:15 Furosemide (Lasix) 40 mg EVERY 12 HOURS IV 05/17/19 10:30 06/16/19 10:29 05/17/19 20:55 Insulin Aspart (NovoLOG) BEFORE MEALS AND HS SUBQ 05/14/19 06:30 06/13/19 06:29 05/17/19 21:02 Insulin Detemir (Levemir) 10 units Q24H SUBQ 05/13/19 22:00 06/12/19 21:59 05/17/19 21:03 Iron Sucrose 100 mg/Sodium Chloride 60 ml @ 240 mls/hr BEDTIME IV 05/14/19 21:00 05/18/19 21:14 05/17/19 21:01 Morphine Sulfate (Morphine Sulfate) 1 mg Q6H PRN IVP For Pain 05/13/19 09:30 05/20/19 09:29 05/15/19 21:29 Nateglinide (Starlix) 60 mg TIAC ORAL 05/13/19 11:30 06/12/19 11:29 05/18/19 05:44 Ondansetron HCl (Zofran) 4 mg Q6H PRN IVP Nausea & Vomiting 05/12/19 09:45 06/11/19 09:44 05/16/19 22:04 Pantoprazole (Protonix) 40 mg BID ORAL 05/13/19 18:00 06/13/19 08:59 05/17/19 17:07 Piperacillin Sod/ Tazobactam Sod 3.375 gm/Sodium Chloride 110 ml @ 27.5 mls/hr Q8H IVPB 05/12/19 16:00 05/19/19 15:59 05/17/19 23:32 Potassium Chloride (K-Dur) 40 meq TWICE A DAY ORAL 05/15/19 11:30 06/14/19 11:29 05/17/19 17:07 Sildenafil Citrate (Revatio) 20 mg THREE TIMES A DAY ORAL 05/17/19 13:00 06/16/19 12:59 05/17/19 17:07 Valproic Acid (Depakene) 125 mg EVERY 12 HOURS NG 05/14/19 21:00 06/13/19 20:59 05/17/19 20:59 Last 24 Hour Vital Signs Date Time Temp Pulse Resp B/P (MAP) Pulse Ox O2 Delivery O2 Flow Rate FiO2 05/18/19 04:00 97.5 83 20 123/61 (81) 97 05/18/19 04:00 81 05/18/19 03:35 82 18 97 Venturi Mask 14.0 55 05/18/19 03:25 82 18 96 Venturi Mask 14.0 55 05/18/19 00:00 81 05/18/19 00:00 97.7 88 20 122/60 (80) 95 05/17/19 23:52 81 18 98 Venturi Mask 14.0 55 05/17/19 23:42 80 20 97 Venturi Mask 14.0 55 05/17/19 21:00 Venturi Mask 14.0 05/17/19 20:00 98.1 86 20 132/88 (103) 95 05/17/19 20:00 85 05/17/19 19:52 84 18 97 Venturi Mask 14.0 55 05/17/19 19:42 86 18 96 Venturi Mask 14.0 55 05/17/19 19:42 96 Venturi Mask 14.0 55 05/17/19 16:00 96.6 86 19 121/65 (83) 96 05/17/19 16:00 87 05/17/19 15:43 88 18 96 Venturi Mask 14.0 55 80 18 95 05/17/19 12:00 98.1 108 18 129/86 (100) 91 05/17/19 12:00 100 05/17/19 11:31 103 18 95 Venturi Mask 14.0 55 88 18 97 05/17/19 09:00 Venturi Mask 14.0 05/17/19 08:00 91 05/17/19 08:00 97.4 89 20 156/85 (108) 98 05/17/19 07:45 95 18 100 Venturi Mask 14.0 55 94 18 98 05/17/19 07:45 98 Venturi Mask 14.0 55 05/17/19 04:00 98.1 99 18 136/86 (103) 96 05/17/19 04:00 93 05/17/19 03:23 100 17 100 Venturi Mask 14.0 55 94 18 99 05/17/19 00:00 97.6 103 18 139/88 (105) 98 05/17/19 00:00 92 05/16/19 23:48 106 17 97 Venturi Mask 14.0 55 104 18 94 05/16/19 21:15 84 Venturi Mask 55 05/16/19 21:00 Venturi Mask 14.0 05/16/19 20:00 111 05/16/19 20:00 97.2 100 20 133/79 (97) 98 05/16/19 16:00 98.1 91 18 120/76 (91) 99 05/16/19 16:00 100 05/16/19 15:18 107 20 98 Venturi Mask 14.0 55 94 20 92 05/16/19 12:00 98.0 99 19 140/87 (104) 99 05/16/19 12:00 102 05/16/19 11:44 110 20 98 Venturi Mask 14.0 55 102 24 90 05/16/19 09:36 107 20 97 Venturi Mask 14.0 55 98 22 94 05/16/19 08:27 Venturi Mask 12.0 05/16/19 08:00 97.7 88 19 124/77 (93) 99 05/16/19 08:00 96 Intake and Output 05/17/19 05/18/19 19:00 07:00 Intake Total 257.5 ml 120 ml Output Total 1200 ml Balance -942.5 ml 120 ml Intake Oral 120 ml 120 ml IV Total 137.5 ml Output Urine Total 1200 ml # Voids 6 2 Labs Test 05/17/19 06:35 White Blood Count 10.2 K/UL (4.8-10.8) Red Blood Count 2.77 M/UL (4.20-5.40) Hemoglobin 8.0 G/DL (12.0-16.0) Hematocrit 23.9 % (37.0-47.0) Mean Corpuscular Volume 86 FL (80-99) Mean Corpuscular Hemoglobin 28.9 PG (27.0-31.0) Mean Corpuscular Hemoglobin Concent 33.5 G/DL (32.0-36.0) Red Cell Distribution Width 15.4 % (11.6-14.8) Platelet Count 288 K/UL (150-450) Mean Platelet Volume 5.4 FL (6.5-10.1) Neutrophils (%) (Auto) 58.2 % (45.0-75.0) Lymphocytes (%) (Auto) 25.9 % (20.0-45.0) Monocytes (%) (Auto) 11.0 % (1.0-10.0) Eosinophils (%) (Auto) 4.0 % (0.0-3.0) Basophils (%) (Auto) 0.9 % (0.0-2.0) Sodium Level 148 MMOL/L (136-145) Potassium Level 4.8 MMOL/L (3.5-5.1) Chloride Level 112 MMOL/L (98-107) Carbon Dioxide Level 29 MMOL/L (21-32) Anion Gap 7 mmol/L (5-15) Blood Urea Nitrogen 11 mg/dL (7-18) Creatinine 1.0 MG/DL (0.55-1.30) Estimat Glomerular Filtration Rate 55.1 mL/min (>60) Glucose Level 149 MG/DL (74-106) Calcium Level 8.0 MG/DL (8.5-10.1) Phosphorus Level 3.0 MG/DL (2.5-4.9) Magnesium Level 1.5 MG/DL (1.8-2.4) Total Bilirubin 0.3 MG/DL (0.2-1.0) Aspartate Amino Transf (AST/SGOT) 21 U/L (15-37) Alanine Aminotransferase (ALT/SGPT) 23 U/L (12-78) Alkaline Phosphatase 44 U/L (46-116) C-Reactive Protein, Quantitative 2.6 mg/dL (0.00-0.90) Pro-B-Type Natriuretic Peptide 8978 pg/mL (0-125) Total Protein 6.1 G/DL (6.4-8.2) Albumin 2.2 G/DL (3.4-5.0) Globulin 3.9 g/dL Albumin/Globulin Ratio 0.6 (1.0-2.7) Height (Feet): 5 Height (Inches): 1.00 Weight (Pounds): 120 Objective Physical Exam Vitals: reviewed General: alert, non-toxic, thin, other - Frail, Chronically Ill Head: normocephalic, atraumatic Heent: bilateral eye normal inspection, bilateral eye PERRl Respiratory: lungs clear, normal breath sounds, V mask++ Cardiovascular: regular rate, rhythm, no edema Gi: non tender, soft, decreased bowel sounds Gu: no CVA tenderness Msk: no calf tenderness, + Atrophy Neuro: alert, sensory intact, w motor weakness Psychiatric: mood/affect normal Skin: ++ Danie Jackson MD May 18, 2019 07:01
[2019-05-18 07:24] LABS: EOSINOPHILS % (AUTO) 6.1 % (0.0-3.0); HEMATOCRIT 24.9 % (37.0-47.0); HEMOGLOBIN 8.5 G/DL (12.0-16.0); LYMPHOCYTES % (AUTO) 23.8 % (20.0-45.0); MEAN CORPUSCULAR VOLUME 86 FL (80-99); MONOCYTES % (AUTO) 10.8 % (1.0-10.0); NEUTROPHILS % (AUTO) 58.2 % (45.0-75.0); PLATELET COUNT 312 K/UL (150-450); RED CELL DISTRIBUTION WIDTH 15.5 % (11.6-14.8); WHITE BLOOD COUNT 10.3 K/UL (4.8-10.8)
--- NOTE | 2019-05-18 07:29 | NUR ---
NURSE NOTES: Received pt in bed, AAO x4. On venturi mask 14L/min. No c/o of pain/distress at this moment. IV on RFA 22g intact and patent, with SL. Side rails padded for seizure precaution. Bed in the lowest, locked, and alarm on. Call light within reach. Will continue to monitor.
--- NOTE | 2019-05-18 07:32 | Pulmonology Progress Note ---
Assessment/Plan Assessment/Plan Pulmonary Progress Note HPI: The patient is a 68 year old woman, [facility] resident with past medical history of Parkinsons Disease, focal weakness, Diabetes, Mood Disorder, Seizure History, Hyperlipidemia, Constipation admitted with UTI/sepsis, noted to be hypotensive on admission, have significantly elevated Lactic Acid Levels, Positive Urine Ketones, Acute Renal Insufficiency, Anemia. The patient has been having fevers, vomiting for two days, had c/o abdominal pain and diarrhea for two days MANAGEMENT NURSE RN. No rectal bleeding noted. No shortness of breath, orthopnea MANAGEMENT NURSE RN. No wheezing, cough or chest pain MANAGEMENT NURSE RN. Admission EKG note LA enlargement, worsening SOB since admission despite use HHN. BP improved with IV fluids, being diuresed PRN. ABG improved, Glucose improved on ISS On puree diet per SR evaluation, remains on 55% venturi mask Fluid overloaded with significantly elevated BNP level, severe pulmonary hypertension as well as congestive heart failure with diastolic dysfunction. BNP is 9000. On Lasix, sildenafil 20 mg three times a day - Cardiology following PAST MEDICAL HISTORY: Parkinsons Disease, focal weakness, Diabetes, Mood Disorder, Depression, Seizure History, Hyperlipidemia, Constipation, Anemia PAST SURGICAL HISTORY: Tubal ligation. SOCIAL HISTORY: No history of smoking. Denies history of drug or alcohol abuse. ALLERGIES: No known allergies. MEDICATIONS: MANAGEMENT NURSE RN: Lipitor, bisacodyl, citalopram, Colace, ferrous sulfate, Lasix, insulin, metformin. On antibiotics per ID, HHN, O2 PRN, ISS FAMILY HISTORY: Noncontributory. REVIEW OF SYSTEMS: Negative aside from above PHYSICAL EXAMINATION: VITAL SIGNS NOTED HEENT: NCAT, moist mm. NECK: No lymphadenopathy, no masses CHEST: Reduced basal BS. CARDIOVASCULAR: Regular rate and rhythm. No murmurs or extra sounds. GASTROINTESTINAL: Soft, nontender, nondistended. No organomegaly. EXTREMITIES: Mild edema. 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: Priented, tremor, right arm weaker than left, no seizures, sensation intact ASSESSMENT: Sepsis, vomiting, and diarrhea Diastolic Dysfunction Severe Pulm HTN Volume overloaded Pneumonia - possible aspiration On modified diet H/o constipation Parkinsons Disease Previous h/o focal weakness Diabetes on ISS Anemia Mood Disorder - Depression Seizure History Hyperlipidemia PLAN: - Diurese - Sildenafil - VQ pending - CXR - HHN - O2 PRN - wean as possible, prefers FM - does not like NC O2, current FIO2 55% - PPX - Antibiotics per ID - MANAGEMENT NURSE RN Medications - Lantus/ISS given hyperglycemia, Increased AG and Ketones now improved - BiPAP PRN and QHS - ST evaluation of swallow noted - GI following - Monitor labs/ABG PRN - Heme following for anemia DW RN/PMD EKG: LA enlargement CXR: No acute disease initially, currently: extensive bilateral interstitial and airspace disease, likely pneumonia although edema also possibility. Suspect small left and possible trace right pleural effusions KUB: Normal LE Dupplex: Negative BC : Negative UA: Positive for UTI Subjective ROS Limited/Unobtainable: No Allergies: Coded Allergies: No Known Allergies (Unverified , 11/08/15) Objective Last 24 Hour Vital Signs Date Time Temp Pulse Resp B/P (MAP) Pulse Ox O2 Delivery O2 Flow Rate FiO2 05/18/19 04:00 97.5 83 20 123/61 (81) 97 05/18/19 04:00 81 05/18/19 03:35 82 18 97 Venturi Mask 14.0 55 05/18/19 03:25 82 18 96 Venturi Mask 14.0 55 05/18/19 00:00 81 05/18/19 00:00 97.7 88 20 122/60 (80) 95 05/17/19 23:52 81 18 98 Venturi Mask 14.0 55 05/17/19 23:42 80 20 97 Venturi Mask 14.0 55 05/17/19 21:00 Venturi Mask 14.0 05/17/19 20:00 98.1 86 20 132/88 (103) 95 05/17/19 20:00 85 05/17/19 19:52 84 18 97 Venturi Mask 14.0 55 05/17/19 19:42 86 18 96 Venturi Mask 14.0 55 05/17/19 19:42 96 Venturi Mask 14.0 55 05/17/19 16:00 96.6 86 19 121/65 (83) 96 05/17/19 16:00 87 05/17/19 15:43 88 18 96 Venturi Mask 14.0 55 80 18 95 05/17/19 12:00 98.1 108 18 129/86 (100) 91 05/17/19 12:00 100 05/17/19 11:31 103 18 95 Venturi Mask 14.0 55 88 18 97 2/3/20 09:00 Venturi Mask 14.0 05/17/19 08:00 91 05/17/19 08:00 97.4 89 20 156/85 (108) 98 05/17/19 07:45 95 18 100 Venturi Mask 14.0 55 94 18 98 05/17/19 07:45 98 Venturi Mask 14.0 55 Intake and Output 05/17/19 05/18/19 19:00 07:00 Intake Total 257.5 ml 120 ml Output Total 1200 ml Balance -942.5 ml 120 ml Intake Oral 120 ml 120 ml IV Total 137.5 ml Output Urine Total 1200 ml # Voids 6 2 Laboratory Tests 05/18/19 06:45: White Blood Count [Pending], Red Blood Count [Pending], Hemoglobin [Pending], Hematocrit [Pending], Mean Corpuscular Volume [Pending], Mean Corpuscular Hemoglobin [Pending], Mean Corpuscular Hemoglobin Concent [Pending], Red Cell Distribution Width [Pending], Platelet Count [Pending], Mean Platelet Volume [ Pending], Neutrophils (%) (Auto) [Pending], Lymphocytes (%) (Auto) [Pending], Monocytes (%) (Auto) [Pending], Eosinophils (%) (Auto) [Pending], Basophils (%) (Auto) [Pending], Sodium Level [Pending], Potassium Level [Pending], Chloride Level [Pending], Carbon Dioxide Level [Pending], Blood Urea Nitrogen [Pending], Creatinine [Pending], Estimat Glomerular Filtration Rate [Pending], Glucose Level [Pending], Calcium Level [Pending], Phosphorus Level [Pending], Magnesium Level [Pending], Total Bilirubin [Pending], Direct Bilirubin [Pending], Aspartate Amino Transf (AST/SGOT) [Pending], Alanine Aminotransferase (ALT/SGPT ) [Pending], Alkaline Phosphatase [Pending], C-Reactive Protein, Quantitative [ Pending], Pro-B-Type Natriuretic Peptide [Pending], Total Protein [Pending], Albumin [Pending] Current Medications Medications (Trade) Dose Ordered Sig/Tenzin Route PRN Reason Start Time Stop Time Status Last Admin Dose Admin Albuterol/ Ipratropium (Albuterol/ Ipratropium) 3 ml Q4H PRN HHN Shortness of Breath 05/13/19 09:00 05/18/19 08:59 05/16/19 11:44 Albuterol/ Ipratropium (Albuterol/ Ipratropium) 3 ml Q4HRT HHN 05/13/19 11:00 05/18/19 10:59 05/18/19 03:25 Citalopram Hydrobromide (celeXA) 20 mg DAILY ORAL 05/14/19 15:30 06/13/19 15:29 05/17/19 09:26 Dextrose (Dextrose 50%) 25 ml Q30M PRN IV Hypoglycemia 05/13/19 22:00 06/12/19 21:59 Dextrose (Dextrose 50%) 50 ml Q30M PRN IV Hypoglycemia 05/13/19 22:00 06/12/19 21:59 Docusate Sodium (Colace) 100 mg THREE TIMES A DAY ORAL 05/15/19 13:00 06/14/19 12:59 05/16/19 08:15 Furosemide (Lasix) 40 mg EVERY 12 HOURS IV 05/17/19 10:30 06/16/19 10:29 05/17/19 20:55 Insulin Aspart (NovoLOG) BEFORE MEALS AND HS SUBQ 05/14/19 06:30 06/13/19 06:29 05/17/19 21:02 Insulin Detemir (Levemir) 10 units Q24H SUBQ 05/13/19 22:00 06/12/19 21:59 05/17/19 21:03 Iron Sucrose 100 mg/Sodium Chloride 60 ml @ 240 mls/hr BEDTIME IV 05/14/19 21:00 05/18/19 21:14 05/17/19 21:01 Morphine Sulfate (Morphine Sulfate) 1 mg Q6H PRN IVP For Pain 05/13/19 09:30 05/20/19 09:29 05/15/19 21:29 Nateglinide (Starlix) 60 mg TIAC ORAL 05/13/19 11:30 06/12/19 11:29 05/18/19 05:44 Ondansetron HCl (Zofran) 4 mg Q6H PRN IVP Nausea & Vomiting 05/12/19 09:45 06/11/19 09:44 05/16/19 22:04 Pantoprazole (Protonix) 40 mg BID ORAL 05/13/19 18:00 06/13/19 08:59 05/17/19 17:07 Piperacillin Sod/ Tazobactam Sod 3.375 gm/Sodium Chloride 110 ml @ 27.5 mls/hr Q8H IVPB 05/12/19 16:00 05/19/19 15:59 05/17/19 23:32 Potassium Chloride (K-Dur) 40 meq TWICE A DAY ORAL 05/15/19 11:30 06/14/19 11:29 05/17/19 17:07 Sildenafil Citrate (Revatio) 20 mg THREE TIMES A DAY ORAL 05/17/19 13:00 06/16/19 12:59 05/17/19 17:07 Valproic Acid (Depakene) 125 mg EVERY 12 HOURS NG 05/14/19 21:00 06/13/19 20:59 05/17/19 20:59 Walker Blank MD May 18, 2019 07:32
--- NOTE | 2019-05-18 07:44 | Cardiac Electrophysiology PN ---
Assessment/Plan Assessment/Plan 1. Shortness of breath, likely due to the patient's severe pulmonary hypertension as well as congestive heart failure with diastolic dysfunction.EF 55%. BNP is 9000. On Lasix 40 mg IV twice a day. Also started on sildenafil 20 mg three times a day for pulmonary hypertension as well. 2. Severe pulmonary hypertension with PA pressure of 123.On Sildenefil 20 tid 3. COPD, on oxygen. Evaluation by Dr. Blank. 4. Pneumonia, leukocytosis, and diabetes. 5. Anemia. PATRICK RN Subjective Subjective No CP in SR in 80s. Still on Oxygen Objective Last 24 Hour Vital Signs Date Time Temp Pulse Resp B/P (MAP) Pulse Ox O2 Delivery O2 Flow Rate FiO2 05/18/19 04:00 97.5 83 20 123/61 (81) 97 05/18/19 04:00 81 05/18/19 03:35 82 18 97 Venturi Mask 14.0 55 05/18/19 03:25 82 18 96 Venturi Mask 14.0 55 05/18/19 00:00 81 05/18/19 00:00 97.7 88 20 122/60 (80) 95 05/17/19 23:52 81 18 98 Venturi Mask 14.0 55 05/17/19 23:42 80 20 97 Venturi Mask 14.0 55 05/17/19 21:00 Venturi Mask 14.0 05/17/19 20:00 98.1 86 20 132/88 (103) 95 05/17/19 20:00 85 05/17/19 19:52 84 18 97 Venturi Mask 14.0 55 05/17/19 19:42 86 18 96 Venturi Mask 14.0 55 05/17/19 19:42 96 Venturi Mask 14.0 55 05/17/19 16:00 96.6 86 19 121/65 (83) 96 05/17/19 16:00 87 05/17/19 15:43 88 18 96 Venturi Mask 14.0 55 80 18 95 05/17/19 12:00 98.1 108 18 129/86 (100) 91 05/17/19 12:00 100 05/17/19 11:31 103 18 95 Venturi Mask 14.0 55 88 18 97 05/17/19 09:00 Venturi Mask 14.0 05/17/19 08:00 91 05/17/19 08:00 97.4 89 20 156/85 (108) 98 05/17/19 07:45 95 18 100 Venturi Mask 14.0 55 94 18 98 05/17/19 07:45 98 Venturi Mask 14.0 55 Intake and Output 05/17/19 05/18/19 19:00 07:00 Intake Total 257.5 ml 120 ml Output Total 1200 ml Balance -942.5 ml 120 ml Intake Oral 120 ml 120 ml IV Total 137.5 ml Output Urine Total 1200 ml # Voids 6 2 Laboratory Tests Test 05/18/19 06:45 White Blood Count 10.3 K/UL (4.8-10.8) Red Blood Count 2.90 M/UL (4.20-5.40) L Hemoglobin 8.5 G/DL (12.0-16.0) L Hematocrit 24.9 % (37.0-47.0) L Mean Corpuscular Volume 86 FL (80-99) Mean Corpuscular Hemoglobin 29.4 PG (27.0-31.0) Mean Corpuscular Hemoglobin Concent 34.3 G/DL (32.0-36.0) Red Cell Distribution Width 15.5 % (11.6-14.8) H Platelet Count 312 K/UL (150-450) Mean Platelet Volume 5.8 FL (6.5-10.1) L Neutrophils (%) (Auto) 58.2 % (45.0-75.0) Lymphocytes (%) (Auto) 23.8 % (20.0-45.0) Monocytes (%) (Auto) 10.8 % (1.0-10.0) H Eosinophils (%) (Auto) 6.1 % (0.0-3.0) H Basophils (%) (Auto) 1.0 % (0.0-2.0) Sodium Level Pending Potassium Level Pending Chloride Level Pending Carbon Dioxide Level Pending Blood Urea Nitrogen Pending Creatinine Pending Estimat Glomerular Filtration Rate Pending Glucose Level Pending Calcium Level Pending Phosphorus Level Pending Magnesium Level Pending Total Bilirubin Pending Direct Bilirubin Pending Aspartate Amino Transf (AST/SGOT) Pending Alanine Aminotransferase (ALT/SGPT) Pending Alkaline Phosphatase Pending C-Reactive Protein, Quantitative Pending Pro-B-Type Natriuretic Peptide Pending Total Protein Pending Albumin Pending Objective HEAD AND NECK: Shows positive JVD. LUNGS: Coarse rhonchi. CARDIOVASCULAR: Shows regular S1 and S2 with no gallop. ABDOMEN: Soft. EXTREMITIES: No pitting edema. Noe Galdamez MD May 18, 2019 07:44
--- NOTE | 2019-05-18 07:45 | Cardiac Electrophysiology PN ---
Assessment/Plan Assessment/Plan 1. Shortness of breath, likely due to the patient's severe pulmonary hypertension as well as congestive heart failure with diastolic dysfunction.EF 55%. BNP is 9000. On Lasix 40 mg IV twice a day. Also started on sildenafil 20 mg three times a day for pulmonary hypertension as well. VQ scan pending today 2. Severe pulmonary hypertension with PA pressure of 123.On Sildenefil 20 tid 3. COPD, on oxygen. Evaluation by Dr. Blank. 4. Pneumonia, leukocytosis, and diabetes. 5. Anemia. PATRICK RN Subjective Subjective No CP in SR in 80s. Still on Oxygen. VQ scan pending today Objective Last 24 Hour Vital Signs Date Time Temp Pulse Resp B/P (MAP) Pulse Ox O2 Delivery O2 Flow Rate FiO2 05/18/19 04:00 97.5 83 20 123/61 (81) 97 05/18/19 04:00 81 05/18/19 03:35 82 18 97 Venturi Mask 14.0 55 05/18/19 03:25 82 18 96 Venturi Mask 14.0 55 05/18/19 00:00 81 05/18/19 00:00 97.7 88 20 122/60 (80) 95 05/17/19 23:52 81 18 98 Venturi Mask 14.0 55 05/17/19 23:42 80 20 97 Venturi Mask 14.0 55 05/17/19 21:00 Venturi Mask 14.0 05/17/19 20:00 98.1 86 20 132/88 (103) 95 05/17/19 20:00 85 05/17/19 19:52 84 18 97 Venturi Mask 14.0 55 05/17/19 19:42 86 18 96 Venturi Mask 14.0 55 05/17/19 19:42 96 Venturi Mask 14.0 55 05/17/19 16:00 96.6 86 19 121/65 (83) 96 05/17/19 16:00 87 05/17/19 15:43 88 18 96 Venturi Mask 14.0 55 80 18 95 05/17/19 12:00 98.1 108 18 129/86 (100) 91 05/17/19 12:00 100 05/17/19 11:31 103 18 95 Venturi Mask 14.0 55 88 18 97 05/17/19 09:00 Venturi Mask 14.0 05/17/19 08:00 91 05/17/19 08:00 97.4 89 20 156/85 (108) 98 Intake and Output 05/17/19 05/18/19 19:00 07:00 Intake Total 257.5 ml 120 ml Output Total 1200 ml Balance -942.5 ml 120 ml Intake Oral 120 ml 120 ml IV Total 137.5 ml Output Urine Total 1200 ml # Voids 6 2 Laboratory Tests Test 05/18/19 06:45 White Blood Count 10.3 K/UL (4.8-10.8) Red Blood Count 2.90 M/UL (4.20-5.40) L Hemoglobin 8.5 G/DL (12.0-16.0) L Hematocrit 24.9 % (37.0-47.0) L Mean Corpuscular Volume 86 FL (80-99) Mean Corpuscular Hemoglobin 29.4 PG (27.0-31.0) Mean Corpuscular Hemoglobin Concent 34.3 G/DL (32.0-36.0) Red Cell Distribution Width 15.5 % (11.6-14.8) H Platelet Count 312 K/UL (150-450) Mean Platelet Volume 5.8 FL (6.5-10.1) L Neutrophils (%) (Auto) 58.2 % (45.0-75.0) Lymphocytes (%) (Auto) 23.8 % (20.0-45.0) Monocytes (%) (Auto) 10.8 % (1.0-10.0) H Eosinophils (%) (Auto) 6.1 % (0.0-3.0) H Basophils (%) (Auto) 1.0 % (0.0-2.0) Sodium Level Pending Potassium Level Pending Chloride Level Pending Carbon Dioxide Level Pending Blood Urea Nitrogen Pending Creatinine Pending Estimat Glomerular Filtration Rate Pending Glucose Level Pending Calcium Level Pending Phosphorus Level Pending Magnesium Level Pending Total Bilirubin Pending Direct Bilirubin Pending Aspartate Amino Transf (AST/SGOT) Pending Alanine Aminotransferase (ALT/SGPT) Pending Alkaline Phosphatase Pending C-Reactive Protein, Quantitative Pending Pro-B-Type Natriuretic Peptide Pending Total Protein Pending Albumin Pending Objective HEAD AND NECK: Shows positive JVD. LUNGS: Coarse rhonchi. CARDIOVASCULAR: Shows regular S1 and S2 with no gallop. ABDOMEN: Soft. EXTREMITIES: No pitting edema. Noe Galdamez MD May 18, 2019 07:45
[2019-05-18 07:58] LABS: ANION GAP 6 mmol/L (5-15); BLOOD UREA NITROGEN 11 mg/dL (7-18); CALCIUM 8.6 MG/DL (8.5-10.1); CARBON DIOXIDE 31 MMOL/L (21-32); CHLORIDE 104 MMOL/L (98-107); POTASSIUM 4.6 MMOL/L (3.5-5.1); SODIUM 141 MMOL/L (136-145)
[2019-05-18 08:00] VITALS: BP 130/74
[2019-05-18] MEDS: Piperacillin/Tazobactam 3.375 GM in NS 110 ML IVPB SCH ×2 (08:00→17:34)
[2019-05-18 08:24] LABS: ALANINE AMINOTRANSFERASE 27 U/L (12-78); ALBUMIN 2.3 G/DL (3.4-5.0); ALKALINE PHOSPHATASE 42 U/L (46-116); ASPARTATE AMINO TRANSFERASE 26 U/L (15-37); BILIRUBIN,DIRECT < 0.1 MG/DL (0.0-0.3); BILIRUBIN,TOTAL 0.3 MG/DL (0.2-1.0); PHOSPHORUS 4.7 MG/DL (2.5-4.9)
[2019-05-18] MEDS: Citalopram Hydrobromide 10mg Tab ORAL SCH (08:49)
[2019-05-18] MEDS: Docusate 100mg cap ORAL SCH ×3 (08:49→17:33)
[2019-05-18] MEDS: Valproic Acid 250mg/5ml Liquid NG SCH ×2 (08:49→21:36)
[2019-05-18] MEDS: Revatio 20mg tab ORAL SCH ×3 (08:49→17:33)
--- NOTE | 2019-05-18 10:00 | NUR ---
NURSE NOTES: Pt off unit for VQ scan
--- NOTE | 2019-05-18 11:04 | NUR ---
NM Lung V/Q scan complete.
--- NOTE | 2019-05-18 11:27 | NUR ---
NURSE NOTES: Pt is back on fl
[2019-05-18] MEDS ORDERED: Albuterol/Ipratropium 3ml neb HHN PRN (11:30)
--- NOTE | 2019-05-18 11:56 | Infectious Diseases Prog Note ---
Assessment/Plan Assessment/Plan IMPRESSION: Pneumonia Leukocytosis, resolved Acute renal failure. resolved diabetes mellitus, hypertension, COPD, anemia. Sever pulmonary hypertension RECOMMENDATION: Continue Zosyn until tomorrow Will f/u Ventilation/ perfusion scan Subjective ROS Limited/Unobtainable: No Constitutional: Reports: no symptoms Respiratory: Reports: shortness of breath Gastrointestinal/Abdominal: Reports: no symptoms Genitourinary: Reports: no symptoms Allergies: Coded Allergies: No Known Allergies (Unverified , 11/08/15) Objective Vital Signs Last 24 Hour Vital Signs Date Time Temp Pulse Resp B/P (MAP) Pulse Ox O2 Delivery O2 Flow Rate FiO2 05/18/19 08:35 Venturi Mask 14.0 05/18/19 08:02 87 20 97 Venturi Mask 14.0 55 84 20 92 05/18/19 08:02 92 Venturi Mask 14.0 55 05/18/19 08:00 77 05/18/19 08:00 97.3 88 22 130/74 (92) 97 05/18/19 04:00 97.5 83 20 123/61 (81) 97 05/18/19 04:00 81 05/18/19 03:35 82 18 97 Venturi Mask 14.0 55 05/18/19 03:25 82 18 96 Venturi Mask 14.0 55 05/18/19 00:00 81 05/18/19 00:00 97.7 88 20 122/60 (80) 95 05/17/19 23:52 81 18 98 Venturi Mask 14.0 55 05/17/19 23:42 80 20 97 Venturi Mask 14.0 55 05/17/19 21:00 Venturi Mask 14.0 05/17/19 20:00 98.1 86 20 132/88 (103) 95 05/17/19 20:00 85 05/17/19 19:52 84 18 97 Venturi Mask 14.0 55 05/17/19 19:42 86 18 96 Venturi Mask 14.0 55 05/17/19 19:42 96 Venturi Mask 14.0 55 05/17/19 16:00 96.6 86 19 121/65 (83) 96 05/17/19 16:00 87 05/17/19 15:43 88 18 96 Venturi Mask 14.0 55 80 18 95 05/17/19 12:00 98.1 108 18 129/86 (100) 91 05/17/19 12:00 100 Height (Feet): 5 Height (Inches): 1.00 Weight (Pounds): 120 General Appearance: no acute distress HEENT: mucous membranes moist Respiratory/Chest: lungs clear, other - oxygen by mask Cardiovascular: normal rate Abdomen: soft, non tender Extremities: no edema Neurologic/Psychiatric: alert, oriented x 3, responsive Laboratory Tests Test 05/18/19 06:45 White Blood Count 10.3 K/UL (4.8-10.8) Red Blood Count 2.90 M/UL (4.20-5.40) L Hemoglobin 8.5 G/DL (12.0-16.0) L Hematocrit 24.9 % (37.0-47.0) L Mean Corpuscular Volume 86 FL (80-99) Mean Corpuscular Hemoglobin 29.4 PG (27.0-31.0) Mean Corpuscular Hemoglobin Concent 34.3 G/DL (32.0-36.0) Red Cell Distribution Width 15.5 % (11.6-14.8) H Platelet Count 312 K/UL (150-450) Mean Platelet Volume 5.8 FL (6.5-10.1) L Neutrophils (%) (Auto) 58.2 % (45.0-75.0) Lymphocytes (%) (Auto) 23.8 % (20.0-45.0) Monocytes (%) (Auto) 10.8 % (1.0-10.0) H Eosinophils (%) (Auto) 6.1 % (0.0-3.0) H Basophils (%) (Auto) 1.0 % (0.0-2.0) Sodium Level 141 MMOL/L (136-145) Potassium Level 4.6 MMOL/L (3.5-5.1) Chloride Level 104 MMOL/L (98-107) Carbon Dioxide Level 31 MMOL/L (21-32) Anion Gap 6 mmol/L (5-15) Blood Urea Nitrogen 11 mg/dL (7-18) Creatinine 1.0 MG/DL (0.55-1.30) Estimat Glomerular Filtration Rate 55.1 mL/min (>60) Glucose Level 115 MG/DL (74-106) H Calcium Level 8.6 MG/DL (8.5-10.1) Phosphorus Level 4.7 MG/DL (2.5-4.9) Magnesium Level 1.8 MG/DL (1.8-2.4) Total Bilirubin 0.3 MG/DL (0.2-1.0) Direct Bilirubin < 0.1 MG/DL (0.0-0.3) Aspartate Amino Transf (AST/SGOT) 26 U/L (15-37) Alanine Aminotransferase (ALT/SGPT) 27 U/L (12-78) Alkaline Phosphatase 42 U/L (46-116) L C-Reactive Protein, Quantitative 1.2 mg/dL (0.00-0.90) H Pro-B-Type Natriuretic Peptide 5183 pg/mL (0-125) H Total Protein 6.0 G/DL (6.4-8.2) L Albumin 2.3 G/DL (3.4-5.0) L Current Medications Medications (Trade) Dose Ordered Sig/Tenzin Route PRN Reason Start Time Stop Time Status Last Admin Dose Admin Albuterol/ Ipratropium (Albuterol/ Ipratropium) 3 ml Q4H PRN HHN Shortness of Breath 05/18/19 11:30 05/23/19 11:29 Albuterol/ Ipratropium (Albuterol/ Ipratropium) 3 ml Q4HRT HHN 05/18/19 15:00 05/23/19 14:59 Citalopram Hydrobromide (celeXA) 20 mg DAILY ORAL 05/14/19 15:30 06/13/19 15:29 05/18/19 08:49 Dextrose (Dextrose 50%) 25 ml Q30M PRN IV Hypoglycemia 05/13/19 22:00 06/12/19 21:59 Dextrose (Dextrose 50%) 50 ml Q30M PRN IV Hypoglycemia 05/13/19 22:00 06/12/19 21:59 Docusate Sodium (Colace) 100 mg THREE TIMES A DAY ORAL 05/15/19 13:00 06/14/19 12:59 05/18/19 08:49 Furosemide (Lasix) 40 mg EVERY 12 HOURS IV 05/17/19 10:30 06/16/19 10:29 05/18/19 08:50 Insulin Aspart (NovoLOG) BEFORE MEALS AND HS SUBQ 05/14/19 06:30 06/13/19 06:29 05/17/19 21:02 Insulin Detemir (Levemir) 10 units Q24H SUBQ 05/13/19 22:00 06/12/19 21:59 05/17/19 21:03 Iron Sucrose 100 mg/Sodium Chloride 60 ml @ 240 mls/hr BEDTIME IV 05/14/19 21:00 05/18/19 21:14 05/17/19 21:01 Morphine Sulfate (Morphine Sulfate) 1 mg Q6H PRN IVP For Pain 05/13/19 09:30 05/20/19 09:29 05/15/19 21:29 Nateglinide (Starlix) 60 mg TIAC ORAL 05/13/19 11:30 06/12/19 11:29 05/18/19 05:44 Ondansetron HCl (Zofran) 4 mg Q6H PRN IVP Nausea & Vomiting 05/12/19 09:45 06/11/19 09:44 05/16/19 22:04 Pantoprazole (Protonix) 40 mg BID ORAL 05/13/19 18:00 06/13/19 08:59 05/18/19 08:49 Piperacillin Sod/ Tazobactam Sod 3.375 gm/Sodium Chloride 110 ml @ 27.5 mls/hr Q8H IVPB 05/12/19 16:00 05/19/19 15:59 05/18/19 08:00 Potassium Chloride (K-Dur) 40 meq TWICE A DAY ORAL 05/15/19 11:30 06/14/19 11:29 05/18/19 08:50 Sildenafil Citrate (Revatio) 20 mg THREE TIMES A DAY ORAL 05/17/19 13:00 06/16/19 12:59 05/18/19 08:49 Valproic Acid (Depakene) 125 mg EVERY 12 HOURS NG 05/14/19 21:00 06/13/19 20:59 05/18/19 08:49 Rogelio Martinez MD May 18, 2019 11:56
[2019-05-18 12:00] VITALS: BP 122/73
--- NOTE | 2019-05-18 13:28 | Nephrology Progress Note ---
Assessment/Plan Problem List: (1) Azotemia (2) Type 2 diabetes mellitus (3) COPD exacerbation (4) Elevated lactic acid level (5) Pulmonary hypertension Assessment: severe Assessment Renal failure COPD Acute- dehydration , ? CKD underlying UTI , High Lactic HyperKalemia DM Anemia DNR Plan correct mag and K and Phos- On Lasix and Sildenafil now ABG noted 2D echo noted- Pulm HTN DC Hydrate- Pulm toilet Anemia castro PO protonix Monitor renal parameters Subjective ROS Limited/Unobtainable: No Constitutional: Reports: malaise Objective Objective Last 24 Hour Vital Signs Date Time Temp Pulse Resp B/P (MAP) Pulse Ox O2 Delivery O2 Flow Rate FiO2 05/18/19 12:00 96.6 83 18 122/73 (89) 98 05/18/19 08:35 Venturi Mask 14.0 05/18/19 08:02 87 20 97 Venturi Mask 14.0 55 84 20 92 05/18/19 08:02 92 Venturi Mask 14.0 55 05/18/19 08:00 77 05/18/19 08:00 97.3 88 22 130/74 (92) 97 05/18/19 04:00 97.5 83 20 123/61 (81) 97 05/18/19 04:00 81 05/18/19 03:35 82 18 97 Venturi Mask 14.0 55 05/18/19 03:25 82 18 96 Venturi Mask 14.0 55 05/18/19 00:00 81 05/18/19 00:00 97.7 88 20 122/60 (80) 95 05/17/19 23:52 81 18 98 Venturi Mask 14.0 55 05/17/19 23:42 80 20 97 Venturi Mask 14.0 55 05/17/19 21:00 Venturi Mask 14.0 05/17/19 20:00 98.1 86 20 132/88 (103) 95 05/17/19 20:00 85 05/17/19 19:52 84 18 97 Venturi Mask 14.0 55 05/17/19 19:42 86 18 96 Venturi Mask 14.0 55 05/17/19 19:42 96 Venturi Mask 14.0 55 05/17/19 16:00 96.6 86 19 121/65 (83) 96 05/17/19 16:00 87 05/17/19 15:43 88 18 96 Venturi Mask 14.0 55 80 18 95 Intake and Output 05/17/19 05/18/19 19:00 07:00 Intake Total 257.5 ml 120 ml Output Total 1200 ml Balance -942.5 ml 120 ml Intake Oral 120 ml 120 ml IV Total 137.5 ml Output Urine Total 1200 ml # Voids 6 2 Current Medications Medications (Trade) Dose Ordered Sig/Tenzin Route PRN Reason Start Time Stop Time Status Last Admin Dose Admin Albuterol/ Ipratropium (Albuterol/ Ipratropium) 3 ml Q4H PRN HHN Shortness of Breath 05/18/19 11:30 05/23/19 11:29 Albuterol/ Ipratropium (Albuterol/ Ipratropium) 3 ml Q4HRT HHN 05/18/19 15:00 05/23/19 14:59 Citalopram Hydrobromide (celeXA) 20 mg DAILY ORAL 05/14/19 15:30 06/13/19 15:29 05/18/19 08:49 Dextrose (Dextrose 50%) 25 ml Q30M PRN IV Hypoglycemia 05/13/19 22:00 06/12/19 21:59 Dextrose (Dextrose 50%) 50 ml Q30M PRN IV Hypoglycemia 05/13/19 22:00 06/12/19 21:59 Docusate Sodium (Colace) 100 mg THREE TIMES A DAY ORAL 05/15/19 13:00 06/14/19 12:59 05/18/19 08:49 Furosemide (Lasix) 40 mg EVERY 12 HOURS IV 05/17/19 10:30 06/16/19 10:29 05/18/19 08:50 Insulin Aspart (NovoLOG) BEFORE MEALS AND HS SUBQ 05/14/19 06:30 06/13/19 06:29 05/17/19 21:02 Insulin Detemir (Levemir) 10 units Q24H SUBQ 05/13/19 22:00 06/12/19 21:59 05/17/19 21:03 Iron Sucrose 100 mg/Sodium Chloride 60 ml @ 240 mls/hr BEDTIME IV 05/14/19 21:00 05/18/19 21:14 05/17/19 21:01 Morphine Sulfate (Morphine Sulfate) 1 mg Q6H PRN IVP For Pain 05/13/19 09:30 05/20/19 09:29 05/15/19 21:29 Nateglinide (Starlix) 60 mg TIAC ORAL 05/13/19 11:30 06/12/19 11:29 05/18/19 05:44 Ondansetron HCl (Zofran) 4 mg Q6H PRN IVP Nausea & Vomiting 05/12/19 09:45 06/11/19 09:44 05/16/19 22:04 Pantoprazole (Protonix) 40 mg BID ORAL 05/13/19 18:00 06/13/19 08:59 05/18/19 08:49 Piperacillin Sod/ Tazobactam Sod 3.375 gm/Sodium Chloride 110 ml @ 27.5 mls/hr Q8H IVPB 05/12/19 16:00 05/19/19 15:59 05/18/19 08:00 Potassium Chloride (K-Dur) 40 meq TWICE A DAY ORAL 05/15/19 11:30 06/14/19 11:29 05/18/19 08:50 Sildenafil Citrate (Revatio) 20 mg THREE TIMES A DAY ORAL 05/17/19 13:00 06/16/19 12:59 05/18/19 08:49 Valproic Acid (Depakene) 125 mg EVERY 12 HOURS NG 05/14/19 21:00 06/13/19 20:59 05/18/19 08:49 Laboratory Tests 05/18/19 06:45: White Blood Count 10.3, Red Blood Count 2.90L, Hemoglobin 8.5L, Hematocrit 24.9L , Mean Corpuscular Volume 86, Mean Corpuscular Hemoglobin 29.4, Mean Corpuscular Hemoglobin Concent 34.3, Red Cell Distribution Width 15.5H, Platelet Count 312, Mean Platelet Volume 5.8L, Neutrophils (%) (Auto) 58.2, Lymphocytes (%) (Auto) 23.8, Monocytes (%) (Auto) 10.8H, Eosinophils (%) (Auto) 6.1H, Basophils (%) (Auto) 1.0, Sodium Level 141, Potassium Level 4.6, Chloride Level 104, Carbon Dioxide Level 31, Anion Gap 6, Blood Urea Nitrogen 11, Creatinine 1.0, Estimat Glomerular Filtration Rate 55.1, Glucose Level 115H, Calcium Level 8.6, Phosphorus Level 4.7, Magnesium Level 1.8, Total Bilirubin 0.3, Direct Bilirubin < 0.1, Aspartate Amino Transf (AST/SGOT) 26, Alanine Aminotransferase (ALT/SGPT) 27, Alkaline Phosphatase 42L, C-Reactive Protein, Quantitative 1.2H, Pro-B-Type Natriuretic Peptide 5183H, Total Protein 6.0L, Albumin 2.3L Height (Feet): 5 Height (Inches): 1.00 Weight (Pounds): 120 General Appearance: no apparent distress, lethargic Cardiovascular: normal rate Respiratory/Chest: decreased breath sounds Abdomen: distended José Miguel Calvert MD May 18, 2019 13:28
--- NOTE | 2019-05-18 13:41 | Diagnostic Imaging Report ---
Indication: Chest pain Technique: A ventilation/perfusion scan was performed. Ventilation was performed utilizing 42 mCi of Technetium 99m-DTPA. Perfusion was performed with 5 mCi of technetium 99m-MAA injected intravenously. Multiple side by side projections obtained. Findings: Ventilation and perfusion are markedly heterogeneous. There are perfusion uptakes particularly within the right lung corresponding to large infiltrates on chest x-ray. By definition the study is in the intermediate category for pulmonary embolus. Impression: Intermediate probability for pulmonary embolus. Recommend CTA Interpretation of findings are based on MAXINE barnes (2006).
[2019-05-18] MEDS ORDERED: Omnipaque 350 100ml vial INJ PRN (15:45)
[2019-05-18 16:00] VITALS: BP 130/74
--- NOTE | 2019-05-18 17:24 | General Progress Note ---
Assessment/Plan Status: progressing, unchanged Assessment/Plan: Assessment - N/V - resolved - Sepsis - improved - lactic acidosis - improved - Renal failure - RAD Recommendations - Abx - IVF - po pureed - follow labs - Check OB Subjective Allergies: Coded Allergies: No Known Allergies (Unverified , 11/08/15) Subjective Feels OK tolerating PO Breathing OK Objective Last 24 Hour Vital Signs Date Time Temp Pulse Resp B/P (MAP) Pulse Ox O2 Delivery O2 Flow Rate FiO2 05/18/19 15:10 80 20 98 Venturi Mask 14.0 55 80 20 94 05/18/19 12:00 96.6 83 18 122/73 (89) 98 05/18/19 12:00 81 05/18/19 08:35 Venturi Mask 14.0 05/18/19 08:02 87 20 97 Venturi Mask 14.0 55 84 20 92 05/18/19 08:02 92 Venturi Mask 14.0 55 05/18/19 08:00 77 05/18/19 08:00 97.3 88 22 130/74 (92) 97 05/18/19 04:00 97.5 83 20 123/61 (81) 97 05/18/19 04:00 81 05/18/19 03:35 82 18 97 Venturi Mask 14.0 55 05/18/19 03:25 82 18 96 Venturi Mask 14.0 55 05/18/19 00:00 81 05/18/19 00:00 97.7 88 20 122/60 (80) 95 05/17/19 23:52 81 18 98 Venturi Mask 14.0 55 05/17/19 23:42 80 20 97 Venturi Mask 14.0 55 05/17/19 21:00 Venturi Mask 14.0 05/17/19 20:00 98.1 86 20 132/88 (103) 95 05/17/19 20:00 85 05/17/19 19:52 84 18 97 Venturi Mask 14.0 55 05/17/19 19:42 86 18 96 Venturi Mask 14.0 55 05/17/19 19:42 96 Venturi Mask 14.0 55 Intake and Output 05/17/19 05/18/19 19:00 07:00 Intake Total 257.5 ml 120 ml Output Total 1200 ml Balance -942.5 ml 120 ml Intake Oral 120 ml 120 ml IV Total 137.5 ml Output Urine Total 1200 ml # Voids 6 2 Laboratory Tests 05/18/19 06:45: White Blood Count 10.3, Red Blood Count 2.90L, Hemoglobin 8.5L, Hematocrit 24.9L , Mean Corpuscular Volume 86, Mean Corpuscular Hemoglobin 29.4, Mean Corpuscular Hemoglobin Concent 34.3, Red Cell Distribution Width 15.5H, Platelet Count 312, Mean Platelet Volume 5.8L, Neutrophils (%) (Auto) 58.2, Lymphocytes (%) (Auto) 23.8, Monocytes (%) (Auto) 10.8H, Eosinophils (%) (Auto) 6.1H, Basophils (%) (Auto) 1.0, Sodium Level 141, Potassium Level 4.6, Chloride Level 104, Carbon Dioxide Level 31, Anion Gap 6, Blood Urea Nitrogen 11, Creatinine 1.0, Estimat Glomerular Filtration Rate 55.1, Glucose Level 115H, Calcium Level 8.6, Phosphorus Level 4.7, Magnesium Level 1.8, Total Bilirubin 0.3, Direct Bilirubin < 0.1, Aspartate Amino Transf (AST/SGOT) 26, Alanine Aminotransferase (ALT/SGPT) 27, Alkaline Phosphatase 42L, C-Reactive Protein, Quantitative 1.2H, Pro-B-Type Natriuretic Peptide 5183H, Total Protein 6.0L, Albumin 2.3L Height (Feet): 5 Height (Inches): 1.00 Weight (Pounds): 120 Objective WDWN AA woman NCAT supple Chest - some ronchi and wheeze RR abd soft NT ND no edema Sangeeta Bianchi MD May 18, 2019 17:24
--- NOTE | 2019-05-18 19:00 | NUR ---
NURSE NOTES: Received report from NEFTALI Chan. Patient is awake, lying in semi barrett's; resting comfortably. A/Ox4. Denies pain at this time. No signs of acute distress noted. Checked IV site and flushed. No erythema, bleeding or infiltration noted. On venturi mask FiO 45%. On padded siderails for seizure precaution. Bed at lowest position, brakes on, [id number]. Call light within reach. Will continue to monitor.
--- NOTE | 2019-05-18 19:24 | NUR ---
HAND-OFF: Report given to NEFTALI Floyd.
[2019-05-18 20:00] VITALS: BP 114/70
--- NOTE | 2019-05-18 21:27 | General Progress Note ---
Assessment/Plan Problem List: (1) Constipation ICD Codes: K59.00 - Constipation, unspecified SNOMED: 38246566 (2) Renal insufficiency ICD Codes: N28.9 - Disorder of kidney and ureter, unspecified SNOMED: 217301896, 447458474 (3) COPD exacerbation ICD Codes: J44.1 - Chronic obstructive pulmonary disease with (acute) exacerbation SNOMED: 755436464 (4) UTI (urinary tract infection) ICD Codes: N39.0 - Urinary tract infection, site not specified SNOMED: 11747864 Qualifiers: Qualified Codes: N39.0 - Urinary tract infection, site not specified (5) Hyperlipidemia associated with type 2 diabetes mellitus ICD Codes: E11.69 - Type 2 diabetes mellitus with other specified complication ; E78.5 - Hyperlipidemia, unspecified SNOMED: 297588558, 305261900622 (6) Type 2 diabetes mellitus ICD Codes: E11.9 - Type 2 diabetes mellitus without complications SNOMED: 49957671, 117292918 Qualifiers: Qualified Codes: E11.9 - Type 2 diabetes mellitus without complications (7) Azotemia ICD Codes: R79.89 - Other specified abnormal findings of blood chemistry SNOMED: 419188420 (8) Cholelithiasis ICD Codes: K80.20 - Calculus of gallbladder without cholecystitis without obstruction SNOMED: 534794171 Status: progressing, unchanged Assessment/Plan: still has dyspnea check sugars afebrile on high oxygen severe pulm htn discussed w pulmonary and cardiology at length Subjective Respiratory: Reports: shortness of breath Allergies: Coded Allergies: No Known Allergies (Unverified , 11/08/15) Objective Last 24 Hour Vital Signs Date Time Temp Pulse Resp B/P (MAP) Pulse Ox O2 Delivery O2 Flow Rate FiO2 05/18/19 20:28 88 20 96 Venturi Mask 10.0 45 85 18 94 05/18/19 16:00 82 05/18/19 16:00 96.9 87 18 130/74 (92) 99 05/18/19 15:10 80 20 98 Venturi Mask 14.0 55 80 20 94 05/18/19 12:00 96.6 83 18 122/73 (89) 98 05/18/19 12:00 81 05/18/19 08:35 Venturi Mask 14.0 05/18/19 08:02 87 20 97 Venturi Mask 14.0 55 84 20 92 05/18/19 08:02 92 Venturi Mask 14.0 55 05/18/19 08:00 77 05/18/19 08:00 97.3 88 22 130/74 (92) 97 05/18/19 04:00 97.5 83 20 123/61 (81) 97 05/18/19 04:00 81 05/18/19 03:35 82 18 97 Venturi Mask 14.0 55 05/18/19 03:25 82 18 96 Venturi Mask 14.0 55 05/18/19 00:00 81 05/18/19 00:00 97.7 88 20 122/60 (80) 95 05/17/19 23:52 81 18 98 Venturi Mask 14.0 55 05/17/19 23:42 80 20 97 Venturi Mask 14.0 55 Intake and Output 05/17/19 05/18/19 18:59 06:59 Intake Total 257.5 ml 120 ml Output Total 1200 ml Balance -942.5 ml 120 ml Intake Oral 120 ml 120 ml IV Total 137.5 ml Output Urine Total 1200 ml # Voids 6 2 Laboratory Tests 05/18/19 06:45: White Blood Count 10.3, Red Blood Count 2.90L, Hemoglobin 8.5L, Hematocrit 24.9L , Mean Corpuscular Volume 86, Mean Corpuscular Hemoglobin 29.4, Mean Corpuscular Hemoglobin Concent 34.3, Red Cell Distribution Width 15.5H, Platelet Count 312, Mean Platelet Volume 5.8L, Neutrophils (%) (Auto) 58.2, Lymphocytes (%) (Auto) 23.8, Monocytes (%) (Auto) 10.8H, Eosinophils (%) (Auto) 6.1H, Basophils (%) (Auto) 1.0, Sodium Level 141, Potassium Level 4.6, Chloride Level 104, Carbon Dioxide Level 31, Anion Gap 6, Blood Urea Nitrogen 11, Creatinine 1.0, Estimat Glomerular Filtration Rate 55.1, Glucose Level 115H, Calcium Level 8.6, Phosphorus Level 4.7, Magnesium Level 1.8, Total Bilirubin 0.3, Direct Bilirubin < 0.1, Aspartate Amino Transf (AST/SGOT) 26, Alanine Aminotransferase (ALT/SGPT) 27, Alkaline Phosphatase 42L, C-Reactive Protein, Quantitative 1.2H, Pro-B-Type Natriuretic Peptide 5183H, Total Protein 6.0L, Albumin 2.3L Height (Feet): 5 Height (Inches): 1.00 Weight (Pounds): 120 Neck: supple Respiratory/Chest: lungs clear Amelie Rios MD May 18, 2019 21:27
[2019-05-18] MEDS: Iron Sucrose 100 MG in NS 55 ML IV SCH (21:36)
[2019-05-18] MEDS: Levemir Flexpen SUBQ SCH (21:38)
[2019-05-19] VITALS: BP 116/69
[2019-05-19] MEDS: Piperacillin/Tazobactam 3.375 GM in NS 110 ML IVPB SCH ×2 (00:14→08:00)
--- NOTE | 2019-05-19 03:09 | NUR ---
NURSE NOTES: Resting throughout the night. No significant change of condition noted. Will continue to monitor.
[2019-05-19] MEDS: Albuterol/Ipratropium 3ml neb HHN SCH ×6 (03:36→23:40)
[2019-05-19 04:00] VITALS: BP 120/50
[2019-05-19] MEDS: Nateglinide 60mg tab ORAL SCH ×3 (06:21→16:41)
[2019-05-19] MEDS: NovoLOG Insulin Flexpen SUBQ SCH ×4 (06:30→21:53)
[2019-05-19 06:53] LABS: BASOPHILS % (AUTO) 1.3 % (0.0-2.0); EOSINOPHILS % (AUTO) 5.3 % (0.0-3.0); HEMOGLOBIN 9.5 G/DL (12.0-16.0); LYMPHOCYTES % (AUTO) 26.2 % (20.0-45.0); MEAN CORPUSCULAR VOLUME 86 FL (80-99); MONOCYTES % (AUTO) 11.8 % (1.0-10.0); NEUTROPHILS % (AUTO) 55.4 % (45.0-75.0); PLATELET COUNT 338 K/UL (150-450); RED BLOOD COUNT 3.24 M/UL (4.20-5.40); RED CELL DISTRIBUTION WIDTH 17.5 % (11.6-14.8); WHITE BLOOD COUNT 9.3 K/UL (4.8-10.8)
--- NOTE | 2019-05-19 07:15 | NUR ---
HAND-OFF: Report given to NEFTALI Rodriguez. Plan of care endorsed.
[2019-05-19 07:53] LABS: ALANINE AMINOTRANSFERASE 25 U/L (12-78); ALBUMIN 2.4 G/DL (3.4-5.0); ALBUMIN/GLOBULIN RATIO 0.6 (1.0-2.7); ALKALINE PHOSPHATASE 43 U/L (46-116); ANION GAP 6 mmol/L (5-15); ASPARTATE AMINO TRANSFERASE 28 U/L (15-37); BILIRUBIN,TOTAL 0.2 MG/DL (0.2-1.0); BLOOD UREA NITROGEN 13 mg/dL (7-18); CALCIUM 9.2 MG/DL (8.5-10.1); CARBON DIOXIDE 33 MMOL/L (21-32); CHLORIDE 103 MMOL/L (98-107); CREATININE 1.2 MG/DL (0.55-1.30); PHOSPHORUS 5.2 MG/DL (2.5-4.9); POTASSIUM 5.1 MMOL/L (3.5-5.1); SODIUM 142 MMOL/L (136-145)
[2019-05-19 08:00] VITALS: BP 146/80
[2019-05-19] MEDS: Valproic Acid 250mg/5ml Liquid NG SCH ×2 (08:58→21:40)
[2019-05-19] MEDS: Docusate 100mg cap ORAL SCH ×2 (08:59→13:19)
[2019-05-19] MEDS: Citalopram Hydrobromide 10mg Tab ORAL SCH (09:00)
[2019-05-19] MEDS: Revatio 20mg tab ORAL SCH ×3 (09:00→17:16)
[2019-05-19] MEDS ORDERED: Tubing IV Secondary IV ONE (10:21)
[2019-05-19] MEDS ORDERED: NS 275ml ONE (10:21)
--- NOTE | 2019-05-19 10:34 | Infectious Diseases Prog Note ---
Assessment/Plan Assessment/Plan IMPRESSION: Pneumonia treated Leukocytosis, resolved Acute renal failure. resolved diabetes mellitus, hypertension, COPD, anemia. Sever pulmonary hypertension RECOMMENDATION: Discontinue Zosyn Indeterminant Ventilation/ perfusion scan Subjective ROS Limited/Unobtainable: No Constitutional: Reports: no symptoms, other - feels better Respiratory: Reports: no symptoms Gastrointestinal/Abdominal: Reports: no symptoms Genitourinary: Reports: no symptoms Allergies: Coded Allergies: No Known Allergies (Unverified , 11/08/15) Objective Vital Signs Last 24 Hour Vital Signs Date Time Temp Pulse Resp B/P (MAP) Pulse Ox O2 Delivery O2 Flow Rate FiO2 05/19/19 10:16 77 18 98 Venturi Mask 10.0 45 75 16 95 05/19/19 08:11 96 Venturi Mask 10.0 45 05/19/19 08:00 97.1 83 18 146/80 (102) 95 05/19/19 07:48 81 05/19/19 07:45 84 16 97 Venturi Mask 10.0 45 81 14 96 05/19/19 07:38 Venturi Mask 14.0 05/19/19 04:00 97.1 85 18 120/50 (73) 95 05/19/19 04:00 79 05/19/19 03:46 82 18 96 Venturi Mask 10.0 45 05/19/19 03:36 82 18 96 Venturi Mask 10.0 45 05/19/19 00:00 97.6 84 18 116/69 (85) 97 05/19/19 00:00 82 05/18/19 22:58 81 18 96 Venturi Mask 10.0 45 80 18 95 05/18/19 21:00 Venturi Mask 14.0 05/18/19 20:28 88 20 96 Venturi Mask 10.0 45 85 18 94 05/18/19 20:00 97.7 86 17 114/70 (85) 97 05/18/19 20:00 83 05/18/19 20:00 94 Venturi Mask 10.0 45 05/18/19 16:00 82 05/18/19 16:00 96.9 87 18 130/74 (92) 99 05/18/19 15:10 80 20 98 Venturi Mask 14.0 55 80 20 94 05/18/19 12:00 96.6 83 18 122/73 (89) 98 05/18/19 12:00 81 Height (Feet): 5 Height (Inches): 1.00 Weight (Pounds): 120 General Appearance: no acute distress HEENT: mucous membranes moist Respiratory/Chest: decreased breath sounds, other - oxygen by mask Cardiovascular: normal rate Abdomen: soft, non tender Extremities: no edema Neurologic/Psychiatric: alert, responsive Laboratory Tests Test 05/19/19 06:28 White Blood Count 9.3 K/UL (4.8-10.8) Red Blood Count 3.24 M/UL (4.20-5.40) L Hemoglobin 9.5 G/DL (12.0-16.0) L Hematocrit 28.0 % (37.0-47.0) L Mean Corpuscular Volume 86 FL (80-99) Mean Corpuscular Hemoglobin 29.2 PG (27.0-31.0) Mean Corpuscular Hemoglobin Concent 33.8 G/DL (32.0-36.0) Red Cell Distribution Width 17.5 % (11.6-14.8) H Platelet Count 338 K/UL (150-450) Mean Platelet Volume 5.2 FL (6.5-10.1) L Neutrophils (%) (Auto) 55.4 % (45.0-75.0) Lymphocytes (%) (Auto) 26.2 % (20.0-45.0) Monocytes (%) (Auto) 11.8 % (1.0-10.0) H Eosinophils (%) (Auto) 5.3 % (0.0-3.0) H Basophils (%) (Auto) 1.3 % (0.0-2.0) Sodium Level 142 MMOL/L (136-145) Potassium Level 5.1 MMOL/L (3.5-5.1) Chloride Level 103 MMOL/L (98-107) Carbon Dioxide Level 33 MMOL/L (21-32) H Anion Gap 6 mmol/L (5-15) Blood Urea Nitrogen 13 mg/dL (7-18) Creatinine 1.2 MG/DL (0.55-1.30) Estimat Glomerular Filtration Rate 44.7 mL/min (>60) Glucose Level 141 MG/DL (74-106) H Calcium Level 9.2 MG/DL (8.5-10.1) Phosphorus Level 5.2 MG/DL (2.5-4.9) H Magnesium Level 1.6 MG/DL (1.8-2.4) L Total Bilirubin 0.2 MG/DL (0.2-1.0) Aspartate Amino Transf (AST/SGOT) 28 U/L (15-37) Alanine Aminotransferase (ALT/SGPT) 25 U/L (12-78) Alkaline Phosphatase 43 U/L (46-116) L C-Reactive Protein, Quantitative 1.0 mg/dL (0.00-0.90) H Pro-B-Type Natriuretic Peptide 2542 pg/mL (0-125) H Total Protein 6.6 G/DL (6.4-8.2) Albumin 2.4 G/DL (3.4-5.0) L Globulin 4.2 g/dL Albumin/Globulin Ratio 0.6 (1.0-2.7) L Current Medications Medications (Trade) Dose Ordered Sig/Tenzin Route PRN Reason Start Time Stop Time Status Last Admin Dose Admin Albuterol/ Ipratropium (Albuterol/ Ipratropium) 3 ml Q4H PRN HHN Shortness of Breath 05/18/19 11:30 05/23/19 11:29 Albuterol/ Ipratropium (Albuterol/ Ipratropium) 3 ml Q4HRT HHN 05/18/19 15:00 05/23/19 14:59 05/19/19 10:16 Citalopram Hydrobromide (celeXA) 20 mg DAILY ORAL 05/14/19 15:30 06/13/19 15:29 05/19/19 09:00 Dextrose (Dextrose 50%) 25 ml Q30M PRN IV Hypoglycemia 05/13/19 22:00 06/12/19 21:59 Dextrose (Dextrose 50%) 50 ml Q30M PRN IV Hypoglycemia 05/13/19 22:00 06/12/19 21:59 Docusate Sodium (Colace) 100 mg THREE TIMES A DAY ORAL 05/15/19 13:00 06/14/19 12:59 05/19/19 08:59 Furosemide (Lasix) 40 mg EVERY 12 HOURS IV 05/17/19 10:30 06/16/19 10:29 05/19/19 08:59 Insulin Aspart (NovoLOG) BEFORE MEALS AND HS SUBQ 05/14/19 06:30 06/13/19 06:29 05/18/19 17:35 Insulin Detemir (Levemir) 10 units Q24H SUBQ 05/13/19 22:00 06/12/19 21:59 05/18/19 21:38 Iohexol (Omnipaque) 100 mg NOW PRN INJ Radiology Procedure 05/18/19 15:45 05/20/19 15:42 Magnesium Sulfate 100 ml @ 100 mls/hr Q1H IVPB 05/19/19 10:00 05/19/19 11:59 Morphine Sulfate (Morphine Sulfate) 1 mg Q6H PRN IVP For Pain 05/13/19 09:30 05/20/19 09:29 05/15/19 21:29 Nateglinide (Starlix) 60 mg TIAC ORAL 05/13/19 11:30 06/12/19 11:29 05/19/19 06:21 Ondansetron HCl (Zofran) 4 mg Q6H PRN IVP Nausea & Vomiting 05/12/19 09:45 06/11/19 09:44 05/16/19 22:04 Pantoprazole (Protonix) 40 mg BID ORAL 05/13/19 18:00 06/13/19 08:59 05/19/19 09:00 Piperacillin Sod/ Tazobactam Sod 3.375 gm/Sodium Chloride 110 ml @ 27.5 mls/hr Q8H IVPB 05/12/19 16:00 05/19/19 23:00 05/19/19 00:14 Sildenafil Citrate (Revatio) 20 mg THREE TIMES A DAY ORAL 05/17/19 13:00 06/16/19 12:59 05/19/19 09:00 Valproic Acid (Depakene) 125 mg EVERY 12 HOURS NG 05/14/19 21:00 06/13/19 20:59 05/19/19 08:58 Rogelio Martinez MD May 19, 2019 10:34
--- NOTE | 2019-05-19 11:52 | Cardiac Electrophysiology PN ---
Assessment/Plan Assessment/Plan 1. Shortness of breath, likely due to the patient's severe pulmonary hypertension and CHF due to diastolic dysfunction.EF 55%. BNP is 9000. On Lasix 40 mg IV twice a day and sildenafil 20 mg three times a day for pulmonary hypertension as well. VQ scan intermediate probability. Getting Chest CT angio today. 2. Severe pulmonary hypertension with PA pressure of 123.On Sildenefil [address] Blank 3. COPD, on oxygen. Evaluation by Dr. Blank. 4. Pneumonia, leukocytosis, and diabetes. 5. Anemia. DW RN Subjective Subjective No CP in SR in 80s. Still on Oxygen. VQ scan yesterday was intermediate probability. Scheduled for CT chest to R/O PE Objective Last 24 Hour Vital Signs Date Time Temp Pulse Resp B/P (MAP) Pulse Ox O2 Delivery O2 Flow Rate FiO2 05/19/19 10:16 77 18 98 Venturi Mask 10.0 45 75 16 95 05/19/19 08:11 96 Venturi Mask 10.0 45 05/19/19 08:00 97.1 83 18 146/80 (102) 95 05/19/19 07:48 81 05/19/19 07:45 84 16 97 Venturi Mask 10.0 45 81 14 96 05/19/19 07:38 Venturi Mask 14.0 05/19/19 04:00 97.1 85 18 120/50 (73) 95 05/19/19 04:00 79 05/19/19 03:46 82 18 96 Venturi Mask 10.0 45 05/19/19 03:36 82 18 96 Venturi Mask 10.0 45 05/19/19 00:00 97.6 84 18 116/69 (85) 97 05/19/19 00:00 82 05/18/19 22:58 81 18 96 Venturi Mask 10.0 45 80 18 95 05/18/19 21:00 Venturi Mask 14.0 05/18/19 20:28 88 20 96 Venturi Mask 10.0 45 85 18 94 05/18/19 20:00 97.7 86 17 114/70 (85) 97 05/18/19 20:00 83 05/18/19 20:00 94 Venturi Mask 10.0 45 05/18/19 16:00 82 05/18/19 16:00 96.9 87 18 130/74 (92) 99 05/18/19 15:10 80 20 98 Venturi Mask 14.0 55 80 20 94 05/18/19 12:00 96.6 83 18 122/73 (89) 98 05/18/19 12:00 81 Intake and Output 05/18/19 05/19/19 19:00 07:00 Intake Total 840 ml 300 ml Balance 840 ml 300 ml Intake Oral 840 ml 300 ml # Voids 6 2 # Bowel Movements 1 Laboratory Tests Test 05/19/19 06:28 White Blood Count 9.3 K/UL (4.8-10.8) Red Blood Count 3.24 M/UL (4.20-5.40) L Hemoglobin 9.5 G/DL (12.0-16.0) L Hematocrit 28.0 % (37.0-47.0) L Mean Corpuscular Volume 86 FL (80-99) Mean Corpuscular Hemoglobin 29.2 PG (27.0-31.0) Mean Corpuscular Hemoglobin Concent 33.8 G/DL (32.0-36.0) Red Cell Distribution Width 17.5 % (11.6-14.8) H Platelet Count 338 K/UL (150-450) Mean Platelet Volume 5.2 FL (6.5-10.1) L Neutrophils (%) (Auto) 55.4 % (45.0-75.0) Lymphocytes (%) (Auto) 26.2 % (20.0-45.0) Monocytes (%) (Auto) 11.8 % (1.0-10.0) H Eosinophils (%) (Auto) 5.3 % (0.0-3.0) H Basophils (%) (Auto) 1.3 % (0.0-2.0) Sodium Level 142 MMOL/L (136-145) Potassium Level 5.1 MMOL/L (3.5-5.1) Chloride Level 103 MMOL/L (98-107) Carbon Dioxide Level 33 MMOL/L (21-32) H Anion Gap 6 mmol/L (5-15) Blood Urea Nitrogen 13 mg/dL (7-18) Creatinine 1.2 MG/DL (0.55-1.30) Estimat Glomerular Filtration Rate 44.7 mL/min (>60) Glucose Level 141 MG/DL (74-106) H Calcium Level 9.2 MG/DL (8.5-10.1) Phosphorus Level 5.2 MG/DL (2.5-4.9) H Magnesium Level 1.6 MG/DL (1.8-2.4) L Total Bilirubin 0.2 MG/DL (0.2-1.0) Aspartate Amino Transf (AST/SGOT) 28 U/L (15-37) Alanine Aminotransferase (ALT/SGPT) 25 U/L (12-78) Alkaline Phosphatase 43 U/L (46-116) L C-Reactive Protein, Quantitative 1.0 mg/dL (0.00-0.90) H Pro-B-Type Natriuretic Peptide 2542 pg/mL (0-125) H Total Protein 6.6 G/DL (6.4-8.2) Albumin 2.4 G/DL (3.4-5.0) L Globulin 4.2 g/dL Albumin/Globulin Ratio 0.6 (1.0-2.7) L Objective HEAD AND NECK: Shows positive JVD. LUNGS: Coarse rhonchi. CARDIOVASCULAR: Shows regular S1 and S2 with no gallop. ABDOMEN: Soft. EXTREMITIES: No pitting edema. Noe Galdamez MD May 19, 2019 11:52
[2019-05-19 12:00] VITALS: BP 118/66
--- NOTE | 2019-05-19 12:36 | Nephrology Progress Note ---
Assessment/Plan Problem List: (1) Azotemia (2) Type 2 diabetes mellitus (3) COPD exacerbation (4) Elevated lactic acid level (5) Pulmonary hypertension Assessment: severe Assessment Renal failure COPD Acute- dehydration , ? CKD underlying UTI , High Lactic HyperKalemia DM Anemia DNR Plan correct mag and K and Phos- On Lasix and Sildenafil now ABG noted 2D echo noted- Pulm HTN DC Hydrate- Pulm toilet Anemia castro PO protonix Monitor renal parameters Subjective ROS Limited/Unobtainable: No Constitutional: Reports: malaise Objective Objective Last 24 Hour Vital Signs Date Time Temp Pulse Resp B/P (MAP) Pulse Ox O2 Delivery O2 Flow Rate FiO2 05/19/19 10:16 77 18 98 Venturi Mask 10.0 45 75 16 95 05/19/19 08:11 96 Venturi Mask 10.0 45 05/19/19 08:00 97.1 83 18 146/80 (102) 95 05/19/19 07:48 81 05/19/19 07:45 84 16 97 Venturi Mask 10.0 45 81 14 96 05/19/19 07:38 Venturi Mask 14.0 05/19/19 04:00 97.1 85 18 120/50 (73) 95 05/19/19 04:00 79 05/19/19 03:46 82 18 96 Venturi Mask 10.0 45 05/19/19 03:36 82 18 96 Venturi Mask 10.0 45 05/19/19 00:00 97.6 84 18 116/69 (85) 97 05/19/19 00:00 82 05/18/19 22:58 81 18 96 Venturi Mask 10.0 45 80 18 95 05/18/19 21:00 Venturi Mask 14.0 05/18/19 20:28 88 20 96 Venturi Mask 10.0 45 85 18 94 05/18/19 20:00 97.7 86 17 114/70 (85) 97 05/18/19 20:00 83 05/18/19 20:00 94 Venturi Mask 10.0 45 05/18/19 16:00 82 05/18/19 16:00 96.9 87 18 130/74 (92) 99 05/18/19 15:10 80 20 98 Venturi Mask 14.0 55 80 20 94 Intake and Output 05/18/19 05/19/19 19:00 07:00 Intake Total 840 ml 300 ml Balance 840 ml 300 ml Intake Oral 840 ml 300 ml # Voids 6 2 # Bowel Movements 1 Laboratory Tests 05/19/19 06:28: White Blood Count 9.3, Red Blood Count 3.24L, Hemoglobin 9.5L, Hematocrit 28.0L , Mean Corpuscular Volume 86, Mean Corpuscular Hemoglobin 29.2, Mean Corpuscular Hemoglobin Concent 33.8, Red Cell Distribution Width 17.5H, Platelet Count 338, Mean Platelet Volume 5.2L, Neutrophils (%) (Auto) 55.4, Lymphocytes (%) (Auto) 26.2, Monocytes (%) (Auto) 11.8H, Eosinophils (%) (Auto) 5.3H, Basophils (%) (Auto) 1.3, Sodium Level 142, Potassium Level 5.1, Chloride Level 103, Carbon Dioxide Level 33H, Anion Gap 6, Blood Urea Nitrogen 13, Creatinine 1.2, Estimat Glomerular Filtration Rate 44.7, Glucose Level 141H, Calcium Level 9.2, Phosphorus Level 5.2H, Magnesium Level 1.6L, Total Bilirubin 0.2, Aspartate Amino Transf (AST/SGOT) 28, Alanine Aminotransferase (ALT/SGPT) 25, Alkaline Phosphatase 43L, C-Reactive Protein, Quantitative 1.0H, Pro-B-Type Natriuretic Peptide 2542H, Total Protein 6.6, Albumin 2.4L, Globulin 4.2, Albumin/Globulin Ratio 0.6L Height (Feet): 5 Height (Inches): 1.00 Weight (Pounds): 120 General Appearance: no apparent distress Respiratory/Chest: decreased breath sounds Abdomen: distended José Miguel Calvert MD May 19, 2019 12:36
--- NOTE | 2019-05-19 13:25 | NUR ---
RD ASSESSMENT & RECOMMENDATIONS SEE CARE ACTIVITY FOR COMPLETE ASSESSMENT DAILY ESTIMATED NEEDS: Needs based on Cardiac, 54kg 25-30 kcals/kg 5732-8191 total kcals 1-1.3 g protein/kg 54-70 g total protein 25-30 mL/kg 4860-3077 total fluid mLs NUTRITION DIAGNOSIS: * Swallowing difficulty R/T dysphagia, h/o Parkinson's disease as evidenced by seen by [employer] w/ rec for pureed moist, thin liquids. * Altered nutrition related lab values R/T diabetes, CHF as evidenced by elev BGs and POC glu (130 138 283 138), A1C of 7.1, elev BNP (2542). CURRENT DIET:REGULAR, pureed moist w/ thin liquids PO DIET RECOMMENDATIONS: CCHO LOW, LOW NA/ texture per [employer] ADDITIONAL RECOMMENDATIONS: * Calibrated bedscale wt for accurate CBW * Monitor lytes closely w/ Lasix, replete as needed (mag low) * Monitor glycemic control- on NISS + Levemir + oral hypoglycemic * Monitor PO tolerance: admitted w/ c/o N/V/D, now resolved.
--- NOTE | 2019-05-19 14:19 | Hematology/Onc Progress Note ---
Assessment/Plan Assessment/Plan Assessment and Recs: # Anemia of iron deficiency -- hgb remains low, anemia panel reviewed, ferritin is 20 --> start on iv iron x 5 days --> cea is 4.9 --> no hemolysis is seen --> r/o gi bleed, gi is on board --> blood tx: 1 unit on 05/15, --> hgb was 8.1-->8->9.5 # Leukocytosis with Sepsis likely due to uti --> has now improved --> levaquin started-->zosyn # Ryan on admission --> per renal on ivf # Elevated lactic acid level --> sp abx lecquin # Type 2 diabetes mellitus --> acucchecks qac and qhs --> iss, consider endo # Stage I decubitus ulcer sacrum # Dvt ppx scds Appreciate consultation and dw Rn Subjective HEENT: Denies: no symptoms, eye pain, blurred vision, tearing, double vision, ear pain, ear discharge, nose pain, nose congestion, throat pain, throat swelling, mouth pain, mouth swelling, other Cardiovascular: Denies: no symptoms, chest pain, edema, irregular heart rate, lightheadedness, palpitations, syncope, other Respiratory: Denies: no symptoms, cough, shortness of breath, SOB with excertion, SOB at rest, sputum, wheezing, other Endocrine: Denies: no symptoms, excessive sweating, flushing, intolerance to cold, intolerance to heat, increased hunger, increased thirst, increased urine, unexplained weight gain, unexplained weight loss, other Allergies: Coded Allergies: No Known Allergies (Unverified , 11/08/15) Subjective 2/2: awake ad alert, v mask, s/p blood, on iv iron 2/3: no bleeding or chills noted, hgb remains stable, at hgb 8 2: remains on celexa, no bleeding, no chills, cbc reordered, no rxn to iv iron 05/19: is getting ct of the chest with angio, no bleeding or chills Objective Objective Current Medications Medications (Trade) Dose Ordered Sig/Tenzin Route PRN Reason Start Time Stop Time Status Last Admin Dose Admin Albuterol/ Ipratropium (Albuterol/ Ipratropium) 3 ml Q4H PRN HHN Shortness of Breath 05/18/19 11:30 05/23/19 11:29 Albuterol/ Ipratropium (Albuterol/ Ipratropium) 3 ml Q4HRT HHN 05/18/19 15:00 05/23/19 14:59 05/19/19 10:16 Citalopram Hydrobromide (celeXA) 20 mg DAILY ORAL 05/14/19 15:30 06/13/19 15:29 05/19/19 09:00 Dextrose (Dextrose 50%) 25 ml Q30M PRN IV Hypoglycemia 05/13/19 22:00 06/12/19 21:59 Dextrose (Dextrose 50%) 50 ml Q30M PRN IV Hypoglycemia 05/13/19 22:00 06/12/19 21:59 Docusate Sodium (Colace) 100 mg THREE TIMES A DAY ORAL 05/15/19 13:00 06/14/19 12:59 05/19/19 13:19 Furosemide (Lasix) 40 mg EVERY 12 HOURS IV 05/17/19 10:30 06/16/19 10:29 05/19/19 08:59 Insulin Aspart (NovoLOG) BEFORE MEALS AND HS SUBQ 05/14/19 06:30 06/13/19 06:29 05/19/19 11:54 Insulin Detemir (Levemir) 10 units Q24H SUBQ 05/13/19 22:00 06/12/19 21:59 05/18/19 21:38 Iohexol (Omnipaque) 100 mg NOW PRN INJ Radiology Procedure 05/18/19 15:45 05/20/19 15:42 Morphine Sulfate (Morphine Sulfate) 1 mg Q6H PRN IVP For Pain 05/13/19 09:30 05/20/19 09:29 05/15/19 21:29 Nateglinide (Starlix) 60 mg TIAC ORAL 05/13/19 11:30 06/12/19 11:29 05/19/19 11:54 Ondansetron HCl (Zofran) 4 mg Q6H PRN IVP Nausea & Vomiting 05/12/19 09:45 06/11/19 09:44 05/16/19 22:04 Pantoprazole (Protonix) 40 mg BID ORAL 05/13/19 18:00 06/13/19 08:59 05/19/19 09:00 Sildenafil Citrate (Revatio) 20 mg THREE TIMES A DAY ORAL 05/17/19 13:00 06/16/19 12:59 05/19/19 13:19 Valproic Acid (Depakene) 125 mg EVERY 12 HOURS NG 05/14/19 21:00 06/13/19 20:59 05/19/19 08:58 Last 24 Hour Vital Signs Date Time Temp Pulse Resp B/P (MAP) Pulse Ox O2 Delivery O2 Flow Rate FiO2 05/19/19 12:00 97.7 87 18 118/66 (83) 95 05/19/19 11:24 80 05/19/19 10:16 77 18 98 Venturi Mask 10.0 45 75 16 95 05/19/19 08:11 96 Venturi Mask 10.0 45 05/19/19 08:00 97.1 83 18 146/80 (102) 95 05/19/19 07:48 81 05/19/19 07:45 84 16 97 Venturi Mask 10.0 45 81 14 96 05/19/19 07:38 Venturi Mask 14.0 05/19/19 04:00 97.1 85 18 120/50 (73) 95 05/19/19 04:00 79 05/19/19 03:46 82 18 96 Venturi Mask 10.0 45 05/19/19 03:36 82 18 96 Venturi Mask 10.0 45 05/19/19 00:00 97.6 84 18 116/69 (85) 97 05/19/19 00:00 82 05/18/19 22:58 81 18 96 Venturi Mask 10.0 45 80 18 95 05/18/19 21:00 Venturi Mask 14.0 05/18/19 20:28 88 20 96 Venturi Mask 10.0 45 85 18 94 05/18/19 20:00 97.7 86 17 114/70 (85) 97 05/18/19 20:00 83 05/18/19 20:00 94 Venturi Mask 10.0 45 05/18/19 16:00 82 05/18/19 16:00 96.9 87 18 130/74 (92) 99 05/18/19 15:10 80 20 98 Venturi Mask 14.0 55 80 20 94 05/18/19 12:00 96.6 83 18 122/73 (89) 98 05/18/19 12:00 81 05/18/19 08:35 Venturi Mask 14.0 05/18/19 08:02 87 20 97 Venturi Mask 14.0 55 84 20 92 05/18/19 08:02 92 Venturi Mask 14.0 55 05/18/19 08:00 77 05/18/19 08:00 97.3 88 22 130/74 (92) 97 05/18/19 04:00 97.5 83 20 123/61 (81) 97 05/18/19 04:00 81 05/18/19 03:35 82 18 97 Venturi Mask 14.0 55 05/18/19 03:25 82 18 96 Venturi Mask 14.0 55 05/18/19 00:00 81 05/18/19 00:00 97.7 88 20 122/60 (80) 95 05/17/19 23:52 81 18 98 Venturi Mask 14.0 55 05/17/19 23:42 80 20 97 Venturi Mask 14.0 55 05/17/19 21:00 Venturi Mask 14.0 05/17/19 20:00 98.1 86 20 132/88 (103) 95 05/17/19 20:00 85 05/17/19 19:52 84 18 97 Venturi Mask 14.0 55 05/17/19 19:42 86 18 96 Venturi Mask 14.0 55 05/17/19 19:42 96 Venturi Mask 14.0 55 05/17/19 16:00 96.6 86 19 121/65 (83) 96 05/17/19 16:00 87 05/17/19 15:43 88 18 96 Venturi Mask 14.0 55 80 18 95 Intake and Output 05/18/19 05/19/19 19:00 07:00 Intake Total 840 ml 300 ml Balance 840 ml 300 ml Intake Oral 840 ml 300 ml # Voids 6 2 # Bowel Movements 1 Labs Test 05/17/19 06:35 05/18/19 06:45 05/19/19 06:28 White Blood Count 10.2 K/UL (4.8-10.8) 10.3 K/UL (4.8-10.8) 9.3 K/UL (4.8-10.8) Red Blood Count 2.77 M/UL (4.20-5.40) 2.90 M/UL (4.20-5.40) 3.24 M/UL (4.20-5.40) Hemoglobin 8.0 G/DL (12.0-16.0) 8.5 G/DL (12.0-16.0) 9.5 G/DL (12.0-16.0) Hematocrit 23.9 % (37.0-47.0) 24.9 % (37.0-47.0) 28.0 % (37.0-47.0) Mean Corpuscular Volume 86 FL (80-99) 86 FL (80-99) 86 FL (80-99) Mean Corpuscular Hemoglobin 28.9 PG (27.0-31.0) 29.4 PG (27.0-31.0) 29.2 PG (27.0-31.0) Mean Corpuscular Hemoglobin Concent 33.5 G/DL (32.0-36.0) 34.3 G/DL (32.0-36.0) 33.8 G/DL (32.0-36.0) Red Cell Distribution Width 15.4 % (11.6-14.8) 15.5 % (11.6-14.8) 17.5 % (11.6-14.8) Platelet Count 288 K/UL (150-450) 312 K/UL (150-450) 338 K/UL (150-450) Mean Platelet Volume 5.4 FL (6.5-10.1) 5.8 FL (6.5-10.1) 5.2 FL (6.5-10.1) Neutrophils (%) (Auto) 58.2 % (45.0-75.0) 58.2 % (45.0-75.0) 55.4 % (45.0-75.0) Lymphocytes (%) (Auto) 25.9 % (20.0-45.0) 23.8 % (20.0-45.0) 26.2 % (20.0-45.0) Monocytes (%) (Auto) 11.0 % (1.0-10.0) 10.8 % (1.0-10.0) 11.8 % (1.0-10.0) Eosinophils (%) (Auto) 4.0 % (0.0-3.0) 6.1 % (0.0-3.0) 5.3 % (0.0-3.0) Basophils (%) (Auto) 0.9 % (0.0-2.0) 1.0 % (0.0-2.0) 1.3 % (0.0-2.0) Sodium Level 148 MMOL/L (136-145) 141 MMOL/L (136-145) 142 MMOL/L (136-145) Potassium Level 4.8 MMOL/L (3.5-5.1) 4.6 MMOL/L (3.5-5.1) 5.1 MMOL/L (3.5-5.1) Chloride Level 112 MMOL/L (98-107) 104 MMOL/L (98-107) 103 MMOL/L (98-107) Carbon Dioxide Level 29 MMOL/L (21-32) 31 MMOL/L (21-32) 33 MMOL/L (21-32) Anion Gap 7 mmol/L (5-15) 6 mmol/L (5-15) 6 mmol/L (5-15) Blood Urea Nitrogen 11 mg/dL (7-18) 11 mg/dL (7-18) 13 mg/dL (7-18) Creatinine 1.0 MG/DL (0.55-1.30) 1.0 MG/DL (0.55-1.30) 1.2 MG/DL (0.55-1.30) Estimat Glomerular Filtration Rate 55.1 mL/min (>60) 55.1 mL/min (>60) 44.7 mL/min (>60) Glucose Level 149 MG/DL (74-106) 115 MG/DL (74-106) 141 MG/DL (74-106) Calcium Level 8.0 MG/DL (8.5-10.1) 8.6 MG/DL (8.5-10.1) 9.2 MG/DL (8.5-10.1) Phosphorus Level 3.0 MG/DL (2.5-4.9) 4.7 MG/DL (2.5-4.9) 5.2 MG/DL (2.5-4.9) Magnesium Level 1.5 MG/DL (1.8-2.4) 1.8 MG/DL (1.8-2.4) 1.6 MG/DL (1.8-2.4) Total Bilirubin 0.3 MG/DL (0.2-1.0) 0.3 MG/DL (0.2-1.0) 0.2 MG/DL (0.2-1.0) Aspartate Amino Transf (AST/SGOT) 21 U/L (15-37) 26 U/L (15-37) 28 U/L (15-37) Alanine Aminotransferase (ALT/SGPT) 23 U/L (12-78) 27 U/L (12-78) 25 U/L (12-78) Alkaline Phosphatase 44 U/L (46-116) 42 U/L (46-116) 43 U/L (46-116) C-Reactive Protein, Quantitative 2.6 mg/dL (0.00-0.90) 1.2 mg/dL (0.00-0.90) 1.0 mg/dL (0.00-0.90) Pro-B-Type Natriuretic Peptide 8978 pg/mL (0-125) 5183 pg/mL (0-125) 2542 pg/mL (0-125) Total Protein 6.1 G/DL (6.4-8.2) 6.0 G/DL (6.4-8.2) 6.6 G/DL (6.4-8.2) Albumin 2.2 G/DL (3.4-5.0) 2.3 G/DL (3.4-5.0) 2.4 G/DL (3.4-5.0) Globulin 3.9 g/dL 4.2 g/dL Albumin/Globulin Ratio 0.6 (1.0-2.7) 0.6 (1.0-2.7) Direct Bilirubin < 0.1 MG/DL (0.0-0.3) Height (Feet): 5 Height (Inches): 1.00 Weight (Pounds): 120 Objective Physical Exam Vitals: reviewed General: alert, non-toxic, thin, other - Frail, Chronically Ill Head: normocephalic, atraumatic Heent: bilateral eye normal inspection, bilateral eye PERRl Respiratory: lungs clear, normal breath sounds, V mask++ Cardiovascular: regular rate, rhythm, no edema Gi: non tender, soft, decreased bowel sounds Gu: no CVA tenderness Msk: no calf tenderness, + Atrophy Neuro: alert, sensory intact, w motor weakness Psychiatric: mood/affect normal Skin: ++ Danie Jackson MD May 19, 2019 14:19
[2019-05-19 16:00] VITALS: BP 148/99
[2019-05-19] MEDS: Docusate 100mg/10ml Liq ORAL SCH (17:16)
--- NOTE | 2019-05-19 18:01 | Pulmonology Progress Note ---
Assessment/Plan Assessment/Plan Pulmonary Progress Note HPI: The patient is a 68 year old woman, [facility] resident with past medical history of Parkinsons Disease, focal weakness, Diabetes, Mood Disorder, Seizure History, Hyperlipidemia, Constipation admitted with UTI/sepsis, noted to be hypotensive on admission, have significantly elevated Lactic Acid Levels, Positive Urine Ketones, Acute Renal Insufficiency, Anemia. The patient has been having fevers, vomiting for two days, had c/o abdominal pain and diarrhea for two days [employer]. No rectal bleeding noted. No shortness of breath, orthopnea [employer]. No wheezing, cough or chest pain [employer]. Admission EKG note LA enlargement, worsening SOB since admission despite use HHN. BP improved with IV fluids, being diuresed PRN. ABG improved, Glucose improved on ISS On puree diet per SR evaluation, remains on venturi mask Fluid overloaded with significantly elevated BNP level, severe pulmonary hypertension as well as congestive heart failure with diastolic dysfunction. BNP is 9000. On Lasix, sildenafil 20 mg three times a day - Cardiology following VQ scan: Intermediate probability for pulmonary embolus. Recommend CTA PAST MEDICAL HISTORY: Parkinsons Disease, focal weakness, Diabetes, Mood Disorder, Depression, Seizure History, Hyperlipidemia, Constipation, Anemia PAST SURGICAL HISTORY: Tubal ligation. SOCIAL HISTORY: No history of smoking. Denies history of drug or alcohol abuse. ALLERGIES: No known allergies. MEDICATIONS: [employer]: Lipitor, bisacodyl, citalopram, Colace, ferrous sulfate, Lasix, insulin, metformin. On antibiotics per ID, HHN, O2 PRN, ISS FAMILY HISTORY: Noncontributory. REVIEW OF SYSTEMS: Negative aside from above PHYSICAL EXAMINATION: VITAL SIGNS NOTED HEENT: NCAT, moist mm. NECK: No lymphadenopathy, no masses CHEST: Reduced basal BS. CARDIOVASCULAR: Regular rate and rhythm. No murmurs or extra sounds. GASTROINTESTINAL: Soft, nontender, nondistended. No organomegaly. EXTREMITIES: Mild edema. 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: Priented, tremor, right arm weaker than left, no seizures, sensation intact ASSESSMENT: Sepsis, vomiting, and diarrhea Diastolic Dysfunction Severe Pulm HTN Volume overloaded Pneumonia - possible aspiration On modified diet H/o constipation Parkinsons Disease Previous h/o focal weakness Diabetes on ISS Anemia Mood Disorder - Depression Seizure History Hyperlipidemia PLAN: - Diurese - Sildenafil - VQ pending - CXR - HHN - O2 PRN - wean as possible, prefers FM - does not like NC O2, current FIO2 55% - PPX - Antibiotics per ID - [employer] Medications - Lantus/ISS given hyperglycemia, Increased AG and Ketones now improved - BiPAP PRN and QHS - ST evaluation of swallow noted - GI following - Monitor labs/ABG PRN - Heme following for anemia - CTA DW RN/PMD EKG: LA enlargement CXR: No acute disease initially, currently: extensive bilateral interstitial and airspace disease, likely pneumonia although edema also possibility. Suspect small left and possible trace right pleural effusions KUB: Normal LE Dupplex: Negative VQ scan: Intermediate probability for pulmonary embolus. Recommend CTA BC : Negative UA: Positive for UTI Subjective ROS Limited/Unobtainable: No Allergies: Coded Allergies: No Known Allergies (Unverified , 11/08/15) Objective Last 24 Hour Vital Signs Date Time Temp Pulse Resp B/P (MAP) Pulse Ox O2 Delivery O2 Flow Rate FiO2 05/19/19 16:00 97.7 82 18 148/99 (115) 95 05/19/19 15:54 110 20 97 Venturi Mask 10.0 45 113 22 94 05/19/19 15:12 73 05/19/19 12:00 97.7 87 18 118/66 (83) 95 05/19/19 11:24 80 05/19/19 10:16 77 18 98 Venturi Mask 10.0 45 75 16 95 05/19/19 08:11 96 Venturi Mask 10.0 45 05/19/19 08:00 97.1 83 18 146/80 (102) 95 05/19/19 07:48 81 05/19/19 07:45 84 16 97 Venturi Mask 10.0 45 81 14 96 05/19/19 07:38 Venturi Mask 14.0 05/19/19 04:00 97.1 85 18 120/50 (73) 95 05/19/19 04:00 79 05/19/19 03:46 82 18 96 Venturi Mask 10.0 45 05/19/19 03:36 82 18 96 Venturi Mask 10.0 45 05/19/19 00:00 97.6 84 18 116/69 (85) 97 05/19/19 00:00 82 05/18/19 22:58 81 18 96 Venturi Mask 10.0 45 80 18 95 05/18/19 21:00 Venturi Mask 14.0 05/18/19 20:28 88 20 96 Venturi Mask 10.0 45 85 18 94 05/18/19 20:00 97.7 86 17 114/70 (85) 97 05/18/19 20:00 83 05/18/19 20:00 94 Venturi Mask 10.0 45 Intake and Output 05/18/19 05/19/19 19:00 07:00 Intake Total 840 ml 300 ml Balance 840 ml 300 ml Intake Oral 840 ml 300 ml # Voids 6 2 # Bowel Movements 1 Laboratory Tests 05/19/19 06:28: White Blood Count 9.3, Red Blood Count 3.24L, Hemoglobin 9.5L, Hematocrit 28.0L , Mean Corpuscular Volume 86, Mean Corpuscular Hemoglobin 29.2, Mean Corpuscular Hemoglobin Concent 33.8, Red Cell Distribution Width 17.5H, Platelet Count 338, Mean Platelet Volume 5.2L, Neutrophils (%) (Auto) 55.4, Lymphocytes (%) (Auto) 26.2, Monocytes (%) (Auto) 11.8H, Eosinophils (%) (Auto) 5.3H, Basophils (%) (Auto) 1.3, Sodium Level 142, Potassium Level 5.1, Chloride Level 103, Carbon Dioxide Level 33H, Anion Gap 6, Blood Urea Nitrogen 13, Creatinine 1.2, Estimat Glomerular Filtration Rate 44.7, Glucose Level 141H, Calcium Level 9.2, Phosphorus Level 5.2H, Magnesium Level 1.6L, Total Bilirubin 0.2, Aspartate Amino Transf (AST/SGOT) 28, Alanine Aminotransferase (ALT/SGPT) 25, Alkaline Phosphatase 43L, C-Reactive Protein, Quantitative 1.0H, Pro-B-Type Natriuretic Peptide 2542H, Total Protein 6.6, Albumin 2.4L, Globulin 4.2, Albumin/Globulin Ratio 0.6L Current Medications Medications (Trade) Dose Ordered Sig/Tenzin Route PRN Reason Start Time Stop Time Status Last Admin Dose Admin Albuterol/ Ipratropium (Albuterol/ Ipratropium) 3 ml Q4H PRN HHN Shortness of Breath 05/18/19 11:30 05/23/19 11:29 Albuterol/ Ipratropium (Albuterol/ Ipratropium) 3 ml Q4HRT HHN 05/18/19 15:00 05/23/19 14:59 05/19/19 15:54 Citalopram Hydrobromide (celeXA) 20 mg DAILY ORAL 05/14/19 15:30 06/13/19 15:29 05/19/19 09:00 Dextrose (Dextrose 50%) 25 ml Q30M PRN IV Hypoglycemia 05/13/19 22:00 06/12/19 21:59 Dextrose (Dextrose 50%) 50 ml Q30M PRN IV Hypoglycemia 05/13/19 22:00 06/12/19 21:59 Docusate Sodium (Colace) 100 mg THREE TIMES A DAY ORAL 05/19/19 18:00 06/18/19 17:59 05/19/19 17:16 Furosemide (Lasix) 40 mg EVERY 12 HOURS IV 05/17/19 10:30 06/16/19 10:29 05/19/19 08:59 Insulin Aspart (NovoLOG) BEFORE MEALS AND HS SUBQ 05/14/19 06:30 06/13/19 06:29 05/19/19 16:44 Insulin Detemir (Levemir) 10 units Q24H SUBQ 05/13/19 22:00 06/12/19 21:59 05/18/19 21:38 Iohexol (Omnipaque) 100 mg NOW PRN INJ Radiology Procedure 05/18/19 15:45 05/20/19 15:42 Morphine Sulfate (Morphine Sulfate) 1 mg Q6H PRN IVP For Pain 05/13/19 09:30 05/20/19 09:29 05/15/19 21:29 Nateglinide (Starlix) 60 mg TIAC ORAL 05/13/19 11:30 06/12/19 11:29 05/19/19 16:41 Ondansetron HCl (Zofran) 4 mg Q6H PRN IVP Nausea & Vomiting 05/12/19 09:45 06/11/19 09:44 05/16/19 22:04 Pantoprazole (Protonix) 40 mg BID ORAL 05/13/19 18:00 06/13/19 08:59 05/19/19 17:15 Sildenafil Citrate (Revatio) 20 mg THREE TIMES A DAY ORAL 05/17/19 13:00 3/4/20 12:59 05/19/19 17:16 Valproic Acid (Depakene) 125 mg EVERY 12 HOURS NG 05/14/19 21:00 06/13/19 20:59 05/19/19 08:58 Walker Blank MD May 19, 2019 18:01
--- NOTE | 2019-05-19 19:25 | NUR ---
HAND-OFF: Report given to FELICITY LINDSAY.
--- NOTE | 2019-05-19 19:30 | NUR ---
NURSE NOTES: Received patient from Michael LINDSAY. Patient in bed, on 4L NC, no signs of respiratory distress. Bed in low position, locked, bed alarm on, call light within reach.
--- NOTE | 2019-05-19 20:00 | General Progress Note ---
Assessment/Plan Status: progressing, unchanged Assessment/Plan: Assessment - N/V - resolved - Sepsis - improved - lactic acidosis - improved - Renal failure - RAD - anemia Recommendations - Abx - IVF - po pureed - follow labs - Check OB Subjective Allergies: Coded Allergies: No Known Allergies (Unverified , 11/08/15) Subjective Feels OK tolerating PO Breathing OK Objective Last 24 Hour Vital Signs Date Time Temp Pulse Resp B/P (MAP) Pulse Ox O2 Delivery O2 Flow Rate FiO2 05/19/19 19:51 88 05/19/19 16:00 97.7 82 18 148/99 (115) 95 05/19/19 15:54 110 20 97 Venturi Mask 10.0 45 113 22 94 05/19/19 15:12 73 05/19/19 12:00 97.7 87 18 118/66 (83) 95 05/19/19 11:24 80 05/19/19 10:16 77 18 98 Venturi Mask 10.0 45 75 16 95 05/19/19 08:11 96 Venturi Mask 10.0 45 05/19/19 08:00 97.1 83 18 146/80 (102) 95 05/19/19 07:48 81 05/19/19 07:45 84 16 97 Venturi Mask 10.0 45 81 14 96 05/19/19 07:38 Venturi Mask 14.0 05/19/19 04:00 97.1 85 18 120/50 (73) 95 05/19/19 04:00 79 05/19/19 03:46 82 18 96 Venturi Mask 10.0 45 05/19/19 03:36 82 18 96 Venturi Mask 10.0 45 05/19/19 00:00 97.6 84 18 116/69 (85) 97 05/19/19 00:00 82 05/18/19 22:58 81 18 96 Venturi Mask 10.0 45 80 18 95 05/18/19 21:00 Venturi Mask 14.0 05/18/19 20:28 88 20 96 Venturi Mask 10.0 45 85 18 94 05/18/19 20:00 97.7 86 17 114/70 (85) 97 05/18/19 20:00 83 05/18/19 20:00 94 Venturi Mask 10.0 45 Intake and Output 05/18/19 05/19/19 18:59 06:59 Intake Total 840 ml 300 ml Balance 840 ml 300 ml Intake Oral 840 ml 300 ml # Voids 6 2 # Bowel Movements 1 Laboratory Tests 05/19/19 06:28: White Blood Count 9.3, Red Blood Count 3.24L, Hemoglobin 9.5L, Hematocrit 28.0L , Mean Corpuscular Volume 86, Mean Corpuscular Hemoglobin 29.2, Mean Corpuscular Hemoglobin Concent 33.8, Red Cell Distribution Width 17.5H, Platelet Count 338, Mean Platelet Volume 5.2L, Neutrophils (%) (Auto) 55.4, Lymphocytes (%) (Auto) 26.2, Monocytes (%) (Auto) 11.8H, Eosinophils (%) (Auto) 5.3H, Basophils (%) (Auto) 1.3, Sodium Level 142, Potassium Level 5.1, Chloride Level 103, Carbon Dioxide Level 33H, Anion Gap 6, Blood Urea Nitrogen 13, Creatinine 1.2, Estimat Glomerular Filtration Rate 44.7, Glucose Level 141H, Calcium Level 9.2, Phosphorus Level 5.2H, Magnesium Level 1.6L, Total Bilirubin 0.2, Aspartate Amino Transf (AST/SGOT) 28, Alanine Aminotransferase (ALT/SGPT) 25, Alkaline Phosphatase 43L, C-Reactive Protein, Quantitative 1.0H, Pro-B-Type Natriuretic Peptide 2542H, Total Protein 6.6, Albumin 2.4L, Globulin 4.2, Albumin/Globulin Ratio 0.6L Height (Feet): 5 Height (Inches): 1.00 Weight (Pounds): 120 Objective WDWN AA woman NCAT supple Chest - some ronchi and wheeze RR abd soft NT ND no edema Sangeeta Bianchi MD May 19, 2019 20:00
[2019-05-19 20:20] VITALS: BP 120/80
--- NOTE | 2019-05-19 20:40 | General Progress Note ---
Assessment/Plan Problem List: (1) Constipation ICD Codes: K59.00 - Constipation, unspecified SNOMED: 90202508 (2) Renal insufficiency ICD Codes: N28.9 - Disorder of kidney and ureter, unspecified SNOMED: 945532950, 819628275 (3) COPD exacerbation ICD Codes: J44.1 - Chronic obstructive pulmonary disease with (acute) exacerbation SNOMED: 010097094 (4) UTI (urinary tract infection) ICD Codes: N39.0 - Urinary tract infection, site not specified SNOMED: 53970145 Qualifiers: Qualified Codes: N39.0 - Urinary tract infection, site not specified (5) Hyperlipidemia associated with type 2 diabetes mellitus ICD Codes: E11.69 - Type 2 diabetes mellitus with other specified complication ; E78.5 - Hyperlipidemia, unspecified SNOMED: 184922277, 798050310265 (6) Type 2 diabetes mellitus ICD Codes: E11.9 - Type 2 diabetes mellitus without complications SNOMED: 60698665, 374402276 Qualifiers: Qualified Codes: E11.9 - Type 2 diabetes mellitus without complications (7) Azotemia ICD Codes: R79.89 - Other specified abnormal findings of blood chemistry SNOMED: 828512969 (8) Cholelithiasis ICD Codes: K80.20 - Calculus of gallbladder without cholecystitis without obstruction SNOMED: 633110874 Status: progressing, unchanged Assessment/Plan: niddm psych patient on nonrebreather severe pulm htn treatment per cardiology and pulmonary afebrile check sugar discussed w pulmonary and cardiology at length Subjective ROS Limited/Unobtainable: Yes Allergies: Coded Allergies: No Known Allergies (Unverified , 11/08/15) Objective Last 24 Hour Vital Signs Date Time Temp Pulse Resp B/P (MAP) Pulse Ox O2 Delivery O2 Flow Rate FiO2 05/19/19 20:20 97.7 90 18 120/80 (93) 93 05/19/19 20:16 Nasal Cannula 4.0 05/19/19 19:57 95 Nasal Cannula 4.0 36 05/19/19 19:57 89 20 98 Nasal Cannula 4.0 36 86 20 95 05/19/19 19:51 88 05/19/19 16:00 97.7 82 18 148/99 (115) 95 05/19/19 15:54 110 20 97 Venturi Mask 10.0 45 113 22 94 05/19/19 15:12 73 05/19/19 12:00 97.7 87 18 118/66 (83) 95 05/19/19 11:24 80 05/19/19 10:16 77 18 98 Venturi Mask 10.0 45 75 16 95 05/19/19 08:11 96 Venturi Mask 10.0 45 05/19/19 08:00 97.1 83 18 146/80 (102) 95 05/19/19 07:48 81 05/19/19 07:45 84 16 97 Venturi Mask 10.0 45 81 14 96 05/19/19 07:38 Venturi Mask 14.0 05/19/19 04:00 97.1 85 18 120/50 (73) 95 05/19/19 04:00 79 05/19/19 03:46 82 18 96 Venturi Mask 10.0 45 05/19/19 03:36 82 18 96 Venturi Mask 10.0 45 05/19/19 00:00 97.6 84 18 116/69 (85) 97 05/19/19 00:00 82 05/18/19 22:58 81 18 96 Venturi Mask 10.0 45 80 18 95 05/18/19 21:00 Venturi Mask 14.0 Intake and Output 05/18/19 05/19/19 19:00 07:00 Intake Total 840 ml 300 ml Balance 840 ml 300 ml Intake Oral 840 ml 300 ml # Voids 6 2 # Bowel Movements 1 Laboratory Tests 05/19/19 06:28: White Blood Count 9.3, Red Blood Count 3.24L, Hemoglobin 9.5L, Hematocrit 28.0L , Mean Corpuscular Volume 86, Mean Corpuscular Hemoglobin 29.2, Mean Corpuscular Hemoglobin Concent 33.8, Red Cell Distribution Width 17.5H, Platelet Count 338, Mean Platelet Volume 5.2L, Neutrophils (%) (Auto) 55.4, Lymphocytes (%) (Auto) 26.2, Monocytes (%) (Auto) 11.8H, Eosinophils (%) (Auto) 5.3H, Basophils (%) (Auto) 1.3, Sodium Level 142, Potassium Level 5.1, Chloride Level 103, Carbon Dioxide Level 33H, Anion Gap 6, Blood Urea Nitrogen 13, Creatinine 1.2, Estimat Glomerular Filtration Rate 44.7, Glucose Level 141H, Calcium Level 9.2, Phosphorus Level 5.2H, Magnesium Level 1.6L, Total Bilirubin 0.2, Aspartate Amino Transf (AST/SGOT) 28, Alanine Aminotransferase (ALT/SGPT) 25, Alkaline Phosphatase 43L, C-Reactive Protein, Quantitative 1.0H, Pro-B-Type Natriuretic Peptide 2542H, Total Protein 6.6, Albumin 2.4L, Globulin 4.2, Albumin/Globulin Ratio 0.6L Height (Feet): 5 Height (Inches): 1.00 Weight (Pounds): 120 Cardiovascular: normal rate Respiratory/Chest: lungs clear Abdomen: soft Amelie Rios MD May 19, 2019 20:40
[2019-05-19] MEDS: Levemir Flexpen SUBQ SCH (21:53)
[2019-05-20] VITALS: BP 136/82
--- NOTE | 2019-05-20 02:15 | Progress Note ---
DATE: 05/19/2019 SUBJECTIVE: The patient is in bed. No behavior issues. Anxiety. MENTAL STATUS EXAMINATION: Alert and oriented times self, place, and situation. Mood is neutral. Affect is full range. Congruent with mood. Thought process is linear and goal oriented. Thought content, no SI or HI. Cognition is intact. Insight and judgment is fair. ASSESSMENT: Major depressive disorder. PLAN: 1. Celexa 20 mg. 2. Depakote. 3. Provide the patient with reality orientation and supportive therapy. Stephanie Ybarra M.D. DR: JANE JOB#: [id number] CC: LAVELL
[2019-05-20] MEDS: Albuterol/Ipratropium 3ml neb HHN SCH ×6 (03:48→23:15)
[2019-05-20 04:00] VITALS: BP 125/77
[2019-05-20] MEDS: NovoLOG Insulin Flexpen SUBQ SCH ×4 (05:39→21:07)
[2019-05-20] MEDS: Nateglinide 60mg tab ORAL SCH ×3 (05:40→17:07)
--- NOTE | 2019-05-20 05:42 | Hematology/Onc Progress Note ---
Assessment/Plan Assessment/Plan Assessment and Recs: # Anemia of iron deficiency -- hgb remains low, anemia panel reviewed, ferritin is 20 --> start on iv iron x 5 days --> cea is 4.9 --> no hemolysis is seen --> r/o gi bleed, gi is on board --> blood tx: 1 unit on 05/15, --> hgb was 8.1-->8->9.5 # Leukocytosis with Sepsis likely due to uti --> has now improved --> levaquin started-->zosyn-->now off # Ryan on admission --> per renal on ivf # Elevated lactic acid level --> sp abx lecquin # Type 2 diabetes mellitus --> acucchecks qac and qhs --> iss, consider endo # Stage I decubitus ulcer sacrum # Dvt ppx scds Appreciate consultation and dw Rn Subjective HEENT: Denies: no symptoms, eye pain, blurred vision, tearing, double vision, ear pain, ear discharge, nose pain, nose congestion, throat pain, throat swelling, mouth pain, mouth swelling, other Cardiovascular: Denies: no symptoms, chest pain, edema, irregular heart rate, lightheadedness, palpitations, syncope, other Respiratory: Denies: no symptoms, cough, shortness of breath, SOB with excertion, SOB at rest, sputum, wheezing, other Gastrointestinal/Abdominal: Denies: no symptoms, abdomen distended, abdominal pain, black stools, tarry stools, blood in stool, constipated, diarrhea, difficulty swallowing, nausea, poor appetite, poor fluid intake, rectal bleeding , vomiting, other Genitourinary: Denies: no symptoms, burning, discharge, frequency, flank pain, hematuria, incontinence, pain, urgency, other Neurologic/Psychiatric: Denies: no symptoms, anxiety, depressed, emotional problems, headache, numbness, paresthesia, pre-existing deficit, seizure, tingling, tremors, weakness, other Endocrine: Denies: no symptoms, excessive sweating, flushing, intolerance to cold, intolerance to heat, increased hunger, increased thirst, increased urine, unexplained weight gain, unexplained weight loss, other Allergies: Coded Allergies: No Known Allergies (Unverified , 11/08/15) Subjective 05/16: awake ad alert, v mask, s/p blood, on iv iron 05/17: no bleeding or chills noted, hgb remains stable, at hgb 8 05/18: remains on celexa, no bleeding, no chills, cbc reordered, no rxn to iv iron 05/19: is getting ct of the chest with angio, no bleeding or chills 05/20: on 4l nc is pending cta, no bleeding, no night sweats Objective Objective Current Medications Medications (Trade) Dose Ordered Sig/Tenzin Route PRN Reason Start Time Stop Time Status Last Admin Dose Admin Albuterol/ Ipratropium (Albuterol/ Ipratropium) 3 ml Q4H PRN HHN Shortness of Breath 05/18/19 11:30 05/23/19 11:29 Albuterol/ Ipratropium (Albuterol/ Ipratropium) 3 ml Q4HRT HHN 05/18/19 15:00 05/23/19 14:59 05/20/19 03:48 Citalopram Hydrobromide (celeXA) 20 mg DAILY ORAL 05/14/19 15:30 06/13/19 15:29 05/19/19 09:00 Dextrose (Dextrose 50%) 25 ml Q30M PRN IV Hypoglycemia 05/13/19 22:00 06/12/19 21:59 Dextrose (Dextrose 50%) 50 ml Q30M PRN IV Hypoglycemia 05/13/19 22:00 06/12/19 21:59 Docusate Sodium (Colace) 100 mg THREE TIMES A DAY ORAL 05/19/19 18:00 06/18/19 17:59 05/19/19 17:16 Furosemide (Lasix) 40 mg EVERY 12 HOURS IV 05/17/19 10:30 06/16/19 10:29 05/19/19 21:39 Insulin Aspart (NovoLOG) BEFORE MEALS AND HS SUBQ 05/14/19 06:30 06/13/19 06:29 05/19/19 21:53 Insulin Detemir (Levemir) 10 units Q24H SUBQ 05/13/19 22:00 06/12/19 21:59 05/19/19 21:53 Iohexol (Omnipaque) 100 mg NOW PRN INJ Radiology Procedure 05/18/19 15:45 05/20/19 15:42 Morphine Sulfate (Morphine Sulfate) 1 mg Q6H PRN IVP For Pain 05/13/19 09:30 05/20/19 09:29 05/15/19 21:29 Nateglinide (Starlix) 60 mg TIAC ORAL 05/13/19 11:30 06/12/19 11:29 05/19/19 16:41 Ondansetron HCl (Zofran) 4 mg Q6H PRN IVP Nausea & Vomiting 05/12/19 09:45 06/11/19 09:44 05/16/19 22:04 Pantoprazole (Protonix) 40 mg BID ORAL 05/13/19 18:00 06/13/19 08:59 05/19/19 17:15 Sildenafil Citrate (Revatio) 20 mg THREE TIMES A DAY ORAL 05/17/19 13:00 06/16/19 12:59 05/19/19 17:16 Valproic Acid (Depakene) 125 mg EVERY 12 HOURS NG 05/14/19 21:00 06/13/19 20:59 05/19/19 21:40 Last 24 Hour Vital Signs Date Time Temp Pulse Resp B/P (MAP) Pulse Ox O2 Delivery O2 Flow Rate FiO2 05/20/19 04:00 97.3 82 18 125/77 (93) 96 05/20/19 04:00 81 05/20/19 03:48 89 20 100 Nasal Cannula 4.0 36 87 20 98 05/20/19 00:00 87 05/20/19 00:00 97.5 95 18 136/82 (100) 97 05/19/19 23:40 88 20 100 Nasal Cannula 4.0 36 87 20 95 05/19/19 20:20 97.7 90 18 120/80 (93) 93 05/19/19 20:16 Nasal Cannula 4.0 05/19/19 19:57 95 Nasal Cannula 4.0 36 05/19/19 19:57 89 20 98 Nasal Cannula 4.0 36 86 20 95 05/19/19 19:51 88 05/19/19 16:00 97.7 82 18 148/99 (115) 95 05/19/19 15:54 110 20 97 Venturi Mask 10.0 45 113 22 94 05/19/19 15:12 73 05/19/19 12:00 97.7 87 18 118/66 (83) 95 05/19/19 11:24 80 05/19/19 10:16 77 18 98 Venturi Mask 10.0 45 75 16 95 05/19/19 08:11 96 Venturi Mask 10.0 45 05/19/19 08:00 97.1 83 18 146/80 (102) 95 05/19/19 07:48 81 05/19/19 07:45 84 16 97 Venturi Mask 10.0 45 81 14 96 05/19/19 07:38 Venturi Mask 14.0 05/19/19 04:00 97.1 85 18 120/50 (73) 95 05/19/19 04:00 79 05/19/19 03:46 82 18 96 Venturi Mask 10.0 45 05/19/19 03:36 82 18 96 Venturi Mask 10.0 45 05/19/19 00:00 97.6 84 18 116/69 (85) 97 05/19/19 00:00 82 05/18/19 22:58 81 18 96 Venturi Mask 10.0 45 80 18 95 05/18/19 21:00 Venturi Mask 14.0 05/18/19 20:28 88 20 96 Venturi Mask 10.0 45 85 18 94 05/18/19 20:00 97.7 86 17 114/70 (85) 97 05/18/19 20:00 83 05/18/19 20:00 94 Venturi Mask 10.0 45 05/18/19 16:00 82 05/18/19 16:00 96.9 87 18 130/74 (92) 99 05/18/19 15:10 80 20 98 Venturi Mask 14.0 55 80 20 94 05/18/19 12:00 96.6 83 18 122/73 (89) 98 05/18/19 12:00 81 05/18/19 08:35 Venturi Mask 14.0 05/18/19 08:02 87 20 97 Venturi Mask 14.0 55 84 20 92 05/18/19 08:02 92 Venturi Mask 14.0 55 05/18/19 08:00 77 05/18/19 08:00 97.3 88 22 130/74 (92) 97 Intake and Output 05/19/19 05/20/19 19:00 07:00 Intake Total 1520 ml Balance 1520 ml Intake Oral 1520 ml # Voids 4 Labs Test 05/17/19 06:35 05/18/19 06:45 05/19/19 06:28 White Blood Count 10.2 K/UL (4.8-10.8) 10.3 K/UL (4.8-10.8) 9.3 K/UL (4.8-10.8) Red Blood Count 2.77 M/UL (4.20-5.40) 2.90 M/UL (4.20-5.40) 3.24 M/UL (4.20-5.40) Hemoglobin 8.0 G/DL (12.0-16.0) 8.5 G/DL (12.0-16.0) 9.5 G/DL (12.0-16.0) Hematocrit 23.9 % (37.0-47.0) 24.9 % (37.0-47.0) 28.0 % (37.0-47.0) Mean Corpuscular Volume 86 FL (80-99) 86 FL (80-99) 86 FL (80-99) Mean Corpuscular Hemoglobin 28.9 PG (27.0-31.0) 29.4 PG (27.0-31.0) 29.2 PG (27.0-31.0) Mean Corpuscular Hemoglobin Concent 33.5 G/DL (32.0-36.0) 34.3 G/DL (32.0-36.0) 33.8 G/DL (32.0-36.0) Red Cell Distribution Width 15.4 % (11.6-14.8) 15.5 % (11.6-14.8) 17.5 % (11.6-14.8) Platelet Count 288 K/UL (150-450) 312 K/UL (150-450) 338 K/UL (150-450) Mean Platelet Volume 5.4 FL (6.5-10.1) 5.8 FL (6.5-10.1) 5.2 FL (6.5-10.1) Neutrophils (%) (Auto) 58.2 % (45.0-75.0) 58.2 % (45.0-75.0) 55.4 % (45.0-75.0) Lymphocytes (%) (Auto) 25.9 % (20.0-45.0) 23.8 % (20.0-45.0) 26.2 % (20.0-45.0) Monocytes (%) (Auto) 11.0 % (1.0-10.0) 10.8 % (1.0-10.0) 11.8 % (1.0-10.0) Eosinophils (%) (Auto) 4.0 % (0.0-3.0) 6.1 % (0.0-3.0) 5.3 % (0.0-3.0) Basophils (%) (Auto) 0.9 % (0.0-2.0) 1.0 % (0.0-2.0) 1.3 % (0.0-2.0) Sodium Level 148 MMOL/L (136-145) 141 MMOL/L (136-145) 142 MMOL/L (136-145) Potassium Level 4.8 MMOL/L (3.5-5.1) 4.6 MMOL/L (3.5-5.1) 5.1 MMOL/L (3.5-5.1) Chloride Level 112 MMOL/L (98-107) 104 MMOL/L (98-107) 103 MMOL/L (98-107) Carbon Dioxide Level 29 MMOL/L (21-32) 31 MMOL/L (21-32) 33 MMOL/L (21-32) Anion Gap 7 mmol/L (5-15) 6 mmol/L (5-15) 6 mmol/L (5-15) Blood Urea Nitrogen 11 mg/dL (7-18) 11 mg/dL (7-18) 13 mg/dL (7-18) Creatinine 1.0 MG/DL (0.55-1.30) 1.0 MG/DL (0.55-1.30) 1.2 MG/DL (0.55-1.30) Estimat Glomerular Filtration Rate 55.1 mL/min (>60) 55.1 mL/min (>60) 44.7 mL/min (>60) Glucose Level 149 MG/DL (74-106) 115 MG/DL (74-106) 141 MG/DL (74-106) Calcium Level 8.0 MG/DL (8.5-10.1) 8.6 MG/DL (8.5-10.1) 9.2 MG/DL (8.5-10.1) Phosphorus Level 3.0 MG/DL (2.5-4.9) 4.7 MG/DL (2.5-4.9) 5.2 MG/DL (2.5-4.9) Magnesium Level 1.5 MG/DL (1.8-2.4) 1.8 MG/DL (1.8-2.4) 1.6 MG/DL (1.8-2.4) Total Bilirubin 0.3 MG/DL (0.2-1.0) 0.3 MG/DL (0.2-1.0) 0.2 MG/DL (0.2-1.0) Aspartate Amino Transf (AST/SGOT) 21 U/L (15-37) 26 U/L (15-37) 28 U/L (15-37) Alanine Aminotransferase (ALT/SGPT) 23 U/L (12-78) 27 U/L (12-78) 25 U/L (12-78) Alkaline Phosphatase 44 U/L (46-116) 42 U/L (46-116) 43 U/L (46-116) C-Reactive Protein, Quantitative 2.6 mg/dL (0.00-0.90) 1.2 mg/dL (0.00-0.90) 1.0 mg/dL (0.00-0.90) Pro-B-Type Natriuretic Peptide 8978 pg/mL (0-125) 5183 pg/mL (0-125) 2542 pg/mL (0-125) Total Protein 6.1 G/DL (6.4-8.2) 6.0 G/DL (6.4-8.2) 6.6 G/DL (6.4-8.2) Albumin 2.2 G/DL (3.4-5.0) 2.3 G/DL (3.4-5.0) 2.4 G/DL (3.4-5.0) Globulin 3.9 g/dL 4.2 g/dL Albumin/Globulin Ratio 0.6 (1.0-2.7) 0.6 (1.0-2.7) Direct Bilirubin < 0.1 MG/DL (0.0-0.3) Height (Feet): 5 Height (Inches): 1.00 Weight (Pounds): 120 Objective Physical Exam Vitals: reviewed General: alert, non-toxic, thin, other - Frail, Chronically Ill Head: normocephalic, atraumatic Heent: bilateral eye normal inspection, bilateral eye PERRl Respiratory: lungs clear, normal breath sounds, V mask++ Cardiovascular: regular rate, rhythm, no edema Gi: non tender, soft, decreased bowel sounds Gu: no CVA tenderness Msk: no calf tenderness, + Atrophy Neuro: alert, sensory intact, w motor weakness Psychiatric: mood/affect normal Skin: ++ Danie Jackson MD May 20, 2019 05:42
[2019-05-20 08:00] VITALS: BP 158/92
[2019-05-20] MEDS: Citalopram Hydrobromide 10mg Tab ORAL SCH (08:22)
[2019-05-20] MEDS: Docusate 100mg/10ml Liq ORAL SCH ×3 (08:22→17:08)
[2019-05-20] MEDS: Revatio 20mg tab ORAL SCH ×3 (08:22→17:07)
[2019-05-20] MEDS: Valproic Acid 250mg/5ml Liquid NG SCH ×2 (08:22→21:05)
--- NOTE | 2019-05-20 09:23 | Cardiac Electrophysiology PN ---
Assessment/Plan Assessment/Plan 1. Shortness of breath, likely due to the patient's severe pulmonary hypertension and CHF due to diastolic dysfunction.EF 55%. BNP is 9000. On Lasix 40 mg IV bid and sildenafil 20 mg tid for pulmonary hypertension as well. VQ scan intermediate probability. Chest CT angio results pending 2. Severe pulmonary hypertension with PA pressure of 123.On Sildenefil [address] Blank 3. COPD, on oxygen. Evaluation by Dr. Blank. 4. Pneumonia, leukocytosis, and diabetes. 5. Anemia. PATRICK RN and Dr Blank Subjective Subjective No CP in SR in 80s. VQ scan was intermediate probability and had CT chest to R /O PE but results pending Objective Last 24 Hour Vital Signs Date Time Temp Pulse Resp B/P (MAP) Pulse Ox O2 Delivery O2 Flow Rate FiO2 05/20/19 08:00 97.3 81 18 158/92 (114) 96 05/20/19 07:55 79 18 99 Nasal Cannula 4.0 36 76 16 93 05/20/19 07:55 96 Nasal Cannula 4.0 36 05/20/19 04:00 97.3 82 18 125/77 (93) 96 05/20/19 04:00 81 05/20/19 03:48 89 20 100 Nasal Cannula 4.0 36 87 20 98 05/20/19 00:00 87 05/20/19 00:00 97.5 95 18 136/82 (100) 97 05/19/19 23:40 88 20 100 Nasal Cannula 4.0 36 87 20 95 05/19/19 20:20 97.7 90 18 120/80 (93) 93 05/19/19 20:16 Nasal Cannula 4.0 05/19/19 19:57 95 Nasal Cannula 4.0 36 05/19/19 19:57 89 20 98 Nasal Cannula 4.0 36 86 20 95 05/19/19 19:51 88 05/19/19 16:00 97.7 82 18 148/99 (115) 95 05/19/19 15:54 110 20 97 Venturi Mask 10.0 45 113 22 94 05/19/19 15:12 73 05/19/19 12:00 97.7 87 18 118/66 (83) 95 05/19/19 11:24 80 05/19/19 10:16 77 18 98 Venturi Mask 10.0 45 75 16 95 Intake and Output 05/19/19 05/20/19 19:00 07:00 Intake Total 1520 ml Output Total 1100 ml Balance 1520 ml -1100 ml Intake Oral 1520 ml Output Urine Total 1100 ml # Voids 4 Objective HEAD AND NECK: Shows positive JVD. LUNGS: Coarse rhonchi. CARDIOVASCULAR: Shows regular S1 and S2 with no gallop. ABDOMEN: Soft. EXTREMITIES: No pitting edema. Noe Galdamez MD May 20, 2019 09:23
--- NOTE | 2019-05-20 09:43 | Diagnostic Imaging Report ---
Indication: Chest pain Technique: Continuous helical transaxial imaging of the chest was obtained from the thoracic inlet to the upper abdomen during rapid intravenous contrast administration. Arterial phase of enhancement obtained. Coronal 2-D reformats were also obtained and maximum intensity projection images in multiple planes. Study obtained in a Siemens sensation [address] Automatic Exposure Control was utilized. Total Dose length Product (DLP): 605.[address] Dose Index Volume (CTDIvol): 42 mGy Comparison: None Findings: There are small bilateral pleural effusions associated posterior basal atelectasis. Small nodes are demonstrated within the pulmonary harshad and there are nodes in the mediastinum especially in the aortopulmonary window. These could be inflammatory or neoplastic. Clinical clinical correlation is needed. Aorta is normal in caliber with no evidence of aneurysm or dissection. There is some calcification of the wall consistent with atherosclerotic disease. The pulmonary artery opacified well. There are no filling defects to suggest pulmonary embolus. The heart is unremarkable. There is a small hiatal hernia. On chest x-ray, the right upper lobe appeared relatively clear dating back to 05/11/2019. On 05/13/2019, chest x-ray showed rather abrupt development of bilateral interstitial and alveolar disease the differential for which included pulmonary edema and interstitial pneumonitis or pneumonia. Subsequent chest x-ray on 05/17/2019 showed persistent disease, with a predominant interstitial component and some alveolar disease in the right upper lobe. The current CT evaluation shows abnormal interstitial densities and groundglass opacities demonstrated within the right upper lobe interspersed with areas of cystic change. The cysts are variable in size but generally small measuring less than a centimeter with majority of the cysts measuring the order of 2 to 3 mm. This is predominating in the right upper lobe but there are scattered cysts throughout both lungs involving mostly the upper lobes bilaterally. IMPRESSION: No evidence of pulmonary embolus, aortic dissection or aneurysm. Primarily interstitial appearing infiltrate present within the right upper lobe. Findings presumably on the basis of pneumonia. Cystic changes noted bilaterally with predominant involvement of the right upper lobe in the area of infiltrate. These may be pre-existing or associated with the pneumonia. Follow-up is recommended. Small lymph nodes within the mediastinum or pulmonary harshad likely inflammatory. Atherosclerotic disease. Small bilateral pleural effusions. Small hiatal hernia The CT scanner at [facility] is accredited by the [employer] and the scans are performed using dose optimization techniques as appropriate to a performed exam including Automatic Exposure control.
--- NOTE | 2019-05-20 10:51 | Nephrology Progress Note ---
Assessment/Plan Problem List: (1) Azotemia (2) Type 2 diabetes mellitus (3) COPD exacerbation (4) Elevated lactic acid level (5) Pulmonary hypertension Assessment: severe Assessment Renal failure COPD Acute- dehydration , ? CKD underlying UTI , High Lactic HyperKalemia DM Anemia DNR Plan correct mag and K and Phos- On Lasix and Sildenafil now ABG noted 2D echo noted- Pulm HTN DC Hydrate- Pulm toilet Anemia castro PO protonix Monitor renal parameters Subjective ROS Limited/Unobtainable: No Constitutional: Reports: malaise Objective Objective Last 24 Hour Vital Signs Date Time Temp Pulse Resp B/P (MAP) Pulse Ox O2 Delivery O2 Flow Rate FiO2 05/20/19 09:00 Nasal Cannula 4.0 05/20/19 08:00 97.3 81 18 158/92 (114) 96 05/20/19 07:55 79 18 99 Nasal Cannula 4.0 36 76 16 93 05/20/19 07:55 96 Nasal Cannula 4.0 36 05/20/19 07:47 84 05/20/19 04:00 97.3 82 18 125/77 (93) 96 05/20/19 04:00 81 05/20/19 03:48 89 20 100 Nasal Cannula 4.0 36 87 20 98 05/20/19 00:00 87 05/20/19 00:00 97.5 95 18 136/82 (100) 97 05/19/19 23:40 88 20 100 Nasal Cannula 4.0 36 87 20 95 05/19/19 20:20 97.7 90 18 120/80 (93) 93 05/19/19 20:16 Nasal Cannula 4.0 05/19/19 19:57 95 Nasal Cannula 4.0 36 05/19/19 19:57 89 20 98 Nasal Cannula 4.0 36 86 20 95 05/19/19 19:51 88 05/19/19 16:00 97.7 82 18 148/99 (115) 95 05/19/19 15:54 110 20 97 Venturi Mask 10.0 45 113 22 94 05/19/19 15:12 73 05/19/19 12:00 97.7 87 18 118/66 (83) 95 05/19/19 11:24 80 Intake and Output 05/19/19 05/20/19 19:00 07:00 Intake Total 1520 ml 140 ml Output Total 1100 ml Balance 1520 ml -960 ml Intake Oral 1520 ml 140 ml Output Urine Total 1100 ml # Voids 4 Height (Feet): 5 Height (Inches): 1.00 Weight (Pounds): 120 General Appearance: no apparent distress Cardiovascular: normal rate Respiratory/Chest: decreased breath sounds Abdomen: soft José Miguel Calvert MD May 20, 2019 10:51
--- NOTE | 2019-05-20 11:09 | General Progress Note ---
Assessment/Plan Status: progressing, unchanged Assessment/Plan: Assessment - N/V - resolved - Sepsis - improved - lactic acidosis - improved - Renal failure - RAD - anemia Recommendations - Abx - IVF - po pureed - follow labs - Check OB Subjective Allergies: Coded Allergies: No Known Allergies (Unverified , 11/08/15) Subjective Feels OK tolerating PO Breathing OK Objective Last 24 Hour Vital Signs Date Time Temp Pulse Resp B/P (MAP) Pulse Ox O2 Delivery O2 Flow Rate FiO2 05/20/19 09:00 Nasal Cannula 4.0 05/20/19 08:00 97.3 81 18 158/92 (114) 96 05/20/19 07:55 79 18 99 Nasal Cannula 4.0 36 76 16 93 05/20/19 07:55 96 Nasal Cannula 4.0 36 05/20/19 07:47 84 05/20/19 04:00 97.3 82 18 125/77 (93) 96 05/20/19 04:00 81 05/20/19 03:48 89 20 100 Nasal Cannula 4.0 36 87 20 98 05/20/19 00:00 87 05/20/19 00:00 97.5 95 18 136/82 (100) 97 05/19/19 23:40 88 20 100 Nasal Cannula 4.0 36 87 20 95 05/19/19 20:20 97.7 90 18 120/80 (93) 93 05/19/19 20:16 Nasal Cannula 4.0 05/19/19 19:57 95 Nasal Cannula 4.0 36 05/19/19 19:57 89 20 98 Nasal Cannula 4.0 36 86 20 95 05/19/19 19:51 88 05/19/19 16:00 97.7 82 18 148/99 (115) 95 05/19/19 15:54 110 20 97 Venturi Mask 10.0 45 113 22 94 05/19/19 15:12 73 05/19/19 12:00 97.7 87 18 118/66 (83) 95 05/19/19 11:24 80 Intake and Output 05/19/19 05/20/19 19:00 07:00 Intake Total 1520 ml 140 ml Output Total 1100 ml Balance 1520 ml -960 ml Intake Oral 1520 ml 140 ml Output Urine Total 1100 ml # Voids 4 Height (Feet): 5 Height (Inches): 1.00 Weight (Pounds): 120 Objective WDWN AA woman NCAT supple Chest - some ronchi and wheeze RR abd soft NT ND no edema Sangeeta Bianchi MD May 20, 2019 11:09
[2019-05-20 12:00] VITALS: BP 136/78
--- NOTE | 2019-05-20 12:00 | Infectious Diseases Prog Note ---
Assessment/Plan Assessment/Plan IMPRESSION: Pneumonia treated Leukocytosis, resolved Acute renal failure. resolved diabetes mellitus, hypertension, COPD, anemia. Sever pulmonary hypertension RECOMMENDATION: Observe off antibiotic CT angiogram : no PE Subjective ROS Limited/Unobtainable: Yes Constitutional: Reports: no symptoms Respiratory: Reports: no symptoms Gastrointestinal/Abdominal: Reports: no symptoms Genitourinary: Reports: no symptoms Allergies: Coded Allergies: No Known Allergies (Unverified , 11/08/15) Objective Vital Signs Last 24 Hour Vital Signs Date Time Temp Pulse Resp B/P (MAP) Pulse Ox O2 Delivery O2 Flow Rate FiO2 05/20/19 09:00 Nasal Cannula 4.0 05/20/19 08:00 97.3 81 18 158/92 (114) 96 05/20/19 07:55 79 18 99 Nasal Cannula 4.0 36 76 16 93 05/20/19 07:55 96 Nasal Cannula 4.0 36 05/20/19 07:47 84 05/20/19 04:00 97.3 82 18 125/77 (93) 96 05/20/19 04:00 81 05/20/19 03:48 89 20 100 Nasal Cannula 4.0 36 87 20 98 05/20/19 00:00 87 05/20/19 00:00 97.5 95 18 136/82 (100) 97 05/19/19 23:40 88 20 100 Nasal Cannula 4.0 36 87 20 95 05/19/19 20:20 97.7 90 18 120/80 (93) 93 05/19/19 20:16 Nasal Cannula 4.0 05/19/19 19:57 95 Nasal Cannula 4.0 36 05/19/19 19:57 89 20 98 Nasal Cannula 4.0 36 86 20 95 05/19/19 19:51 88 05/19/19 16:00 97.7 82 18 148/99 (115) 95 05/19/19 15:54 110 20 97 Venturi Mask 10.0 45 113 22 94 05/19/19 15:12 73 05/19/19 12:00 97.7 87 18 118/66 (83) 95 Height (Feet): 5 Height (Inches): 1.00 Weight (Pounds): 120 General Appearance: no acute distress HEENT: mucous membranes moist Respiratory/Chest: lungs clear, other - oxygen by nasal cannula Cardiovascular: normal rate Abdomen: soft, non tender Extremities: no edema Neurologic/Psychiatric: alert, responsive, other - tremor Current Medications Medications (Trade) Dose Ordered Sig/Tenzin Route PRN Reason Start Time Stop Time Status Last Admin Dose Admin Albuterol/ Ipratropium (Albuterol/ Ipratropium) 3 ml Q4H PRN HHN Shortness of Breath 05/18/19 11:30 05/23/19 11:29 Albuterol/ Ipratropium (Albuterol/ Ipratropium) 3 ml Q4HRT HHN 05/18/19 15:00 05/23/19 14:59 05/20/19 07:55 Citalopram Hydrobromide (celeXA) 20 mg DAILY ORAL 05/14/19 15:30 06/13/19 15:29 05/20/19 08:22 Dextrose (Dextrose 50%) 25 ml Q30M PRN IV Hypoglycemia 05/13/19 22:00 06/12/19 21:59 Dextrose (Dextrose 50%) 50 ml Q30M PRN IV Hypoglycemia 05/13/19 22:00 06/12/19 21:59 Docusate Sodium (Colace) 100 mg THREE TIMES A DAY ORAL 05/19/19 18:00 06/18/19 17:59 05/20/19 08:22 Furosemide (Lasix) 40 mg EVERY 12 HOURS IV 05/17/19 10:30 06/16/19 10:29 05/20/19 08:23 Insulin Aspart (NovoLOG) BEFORE MEALS AND HS SUBQ 05/14/19 06:30 06/13/19 06:29 05/20/19 11:35 Insulin Detemir (Levemir) 10 units Q24H SUBQ 05/13/19 22:00 06/12/19 21:59 05/19/19 21:53 Iohexol (Omnipaque) 100 mg NOW PRN INJ Radiology Procedure 05/18/19 15:45 05/20/19 15:42 Nateglinide (Starlix) 60 mg TIAC ORAL 05/13/19 11:30 06/12/19 11:29 05/20/19 11:05 Ondansetron HCl (Zofran) 4 mg Q6H PRN IVP Nausea & Vomiting 05/12/19 09:45 06/11/19 09:44 05/16/19 22:04 Pantoprazole (Protonix) 40 mg BID ORAL 05/13/19 18:00 06/13/19 08:59 05/20/19 08:22 Sildenafil Citrate (Revatio) 20 mg THREE TIMES A DAY ORAL 05/17/19 13:00 06/16/19 12:59 05/20/19 08:22 Valproic Acid (Depakene) 125 mg EVERY 12 HOURS NG 05/14/19 21:00 06/13/19 20:59 05/20/19 08:22 Rogelio Martinez MD May 20, 2019 12:00
--- NOTE | 2019-05-20 14:36 | NUR ---
CASE MANAGEMENT: REVIEW 05/20/2019 SI:PULMONARY HTN . SEPSIS. ELEVATED LACTID ACID.ANEMIA.UTI. PLEURAL EFFUSION RENAL INSUFFICIENCY. DIABETES 97.3 81 18 136/78 96% ON NC 4L FiO2 36 IS:IV LASIX BID PROTONIX PO BID REVATIO PO TID DEPAKENE NG BID K-DUR PO BID IV VENOFER QHS X 5BAGS STARLIX PO TIAC NOVOLOG SQ AC&HS LEVEMIR SQ Q24HR ALBUTEROL HHN Q4HR \: 2E TELE UNIT DCP: FROM [facility] PLAN: CONT TREATMENT OF SEVERE PULMONARY HTN CONT TREATMENT WITH CARDIO
[2019-05-20 16:00] VITALS: BP 123/70
--- NOTE | 2019-05-20 16:24 | NUR ---
NURSE NOTES:WOUND CARE FOLLOW-UP NOTES:Moisture Intertrigo sacral cleft noted on initial assessment has resolved has resolved.. Skin is clean, pink and dry. Pt denied pain when palpated.Both heels are soft but easily blanchable. No new skin concerns noted.All wound prevention protocols continued as care planned.
--- NOTE | 2019-05-20 17:45 | Progress Note ---
DATE: 05/20/2019 SUBJECTIVE: The patient is doing well. Compliant with medication. No behavior issues noted. Depressed. MENTAL STATUS EXAMINATION: The patient is alert, oriented times self, place, situation, and date. Mood is neutral. Affect is constricted, congruent with mood. Thought process is linear and goal oriented. Thought content, no suicidal or homicidal ideation. ASSESSMENT: Major depressive disorder. PLAN: 1. Celexa 20 mg. 2. Depakote. 3. Provide the patient with reality orientation. Stephanie Ybarra M.D. DR: HERIBERTO JOB#: [id number] CC: LAVELL
--- NOTE | 2019-05-20 19:30 | NUR ---
NURSE NOTES: REceived report from NEFTALI Rodriguez. Patient was laying in bed resting. There were no apparent signs of distress or pain. AO x3. Bedrest on 4 L Nasal Cannula. Checked Iv site, patent and flushed. No signs of erythema, bleeding or infiltration noted. Bed at lowest position with brakes on and siderails up x3. Call light within reach. Will continue plan of care.
--- NOTE | 2019-05-20 19:32 | NUR ---
HAND-OFF: Report given to HANH LINDSAY.
[2019-05-20 20:00] VITALS: BP 113/67
[2019-05-20] MEDS: Levemir Flexpen SUBQ SCH (21:08)
--- NOTE | 2019-05-20 21:23 | Pulmonology Progress Note ---
Assessment/Plan Assessment/Plan Pulmonary Progress Note HPI: The patient is a 68 year old woman, Senior Living resident with past medical history of Parkinsons Disease, focal weakness, Diabetes, Mood Disorder, Seizure History, Hyperlipidemia, Constipation admitted with UTI/sepsis, noted to be hypotensive on admission, have significantly elevated Lactic Acid Levels, Positive Urine Ketones, Acute Renal Insufficiency, Anemia. The patient has been having fevers, vomiting for two days, had c/o abdominal pain and diarrhea for two days [employer]. No rectal bleeding noted. No shortness of breath, orthopnea [employer]. No wheezing, cough or chest pain [employer]. ABG improved, Glucose improved on ISS On puree diet per SR evaluation, NC O2 5L/min Fluid overloaded with significantly elevated BNP level, severe pulmonary hypertension as well as congestive heart failure with diastolic dysfunction. BNP is 9000. On Lasix, sildenafil 20 mg three times a day - Cardiology following VQ scan: Intermediate probability for pulmonary embolus. CTA: No evidence of pulmonary embolus, aortic dissection or aneurysm. Primarily interstitial appearing infiltrate present within the right upper lobe. Findings presumably on the basis of pneumonia. Cystic changes noted bilaterally with predominant involvement of the right upper lobe in the area of infiltrate. These may be pre-existing or associated with the pneumonia. PAST MEDICAL HISTORY: Parkinsons Disease, focal weakness, Diabetes, Mood Disorder, Depression, Seizure History, Hyperlipidemia, Constipation, Anemia PAST SURGICAL HISTORY: Tubal ligation. SOCIAL HISTORY: No history of smoking. Denies history of drug or alcohol abuse. ALLERGIES: No known allergies. MEDICATIONS: [employer]: Lipitor, bisacodyl, citalopram, Colace, ferrous sulfate, Lasix, insulin, metformin. On antibiotics per ID, HHN, O2 PRN, ISS FAMILY HISTORY: Noncontributory. REVIEW OF SYSTEMS: Negative aside from above PHYSICAL EXAMINATION: VITAL SIGNS NOTED HEENT: NCAT, moist mm. NECK: No lymphadenopathy, no masses CHEST: Reduced basal BS. CARDIOVASCULAR: Regular rate and rhythm. No murmurs or extra sounds. GASTROINTESTINAL: Soft, nontender, nondistended. No organomegaly. EXTREMITIES: Mild edema. 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 [employer]LET [employer] POSITIONER: Priented, tremor, right arm weaker than left, no seizures, sensation intact ASSESSMENT: Sepsis, vomiting, and diarrhea Diastolic Dysfunction Severe Pulm HTN Volume overload improving with diuresis Pneumonia - possible aspiration Cystuc changes in region of pneumonia will need to be followed as out patient On modified diet H/o constipation Parkinsons Disease Previous h/o focal weakness Diabetes on ISS Anemia Mood Disorder - Depression - Psychiatry following Seizure History Hyperlipidemia PLAN: - Diurese - Sildenafil - VQ pending - CXR - HHN - O2 PRN - wean as possible, prefers FM - does not like NC O2, current FIO2 55% - PPX - Antibiotics per ID - [employer] Medications - Lantus/ISS given hyperglycemia, Increased AG and Ketones now improved - BiPAP PRN and QHS - ST evaluation of swallow noted - GI following - Monitor labs/ABG PRN - Heme following for anemia - CTA DW RN/PMD EKG: LA enlargement CXR: No acute disease initially, currently: extensive bilateral interstitial and airspace disease, likely pneumonia although edema also possibility. Suspect small left and possible trace right pleural effusions KUB: Normal LE Dupplex: Negative VQ scan: Intermediate probability for pulmonary embolus. CTA: No evidence of pulmonary embolus, aortic dissection or aneurysm. Primarily interstitial appearing infiltrate present within the right upper lobe. Findings presumably on the basis of pneumonia. Cystic changes noted bilaterally with predominant involvement of the right upper lobe in the area of infiltrate. These may be pre-existing or associated with the pneumonia. BC : Negative UA: Positive for UTI Subjective ROS Limited/Unobtainable: No Allergies: Coded Allergies: No Known Allergies (Unverified , 11/08/15) Objective Last 24 Hour Vital Signs Date Time Temp Pulse Resp B/P (MAP) Pulse Ox O2 Delivery O2 Flow Rate FiO2 05/20/19 19:15 91 18 100 Nasal Cannula 4.0 36 90 16 99 05/20/19 19:15 99 Nasal Cannula 4.0 36 05/20/19 16:39 88 05/20/19 16:00 97.3 80 18 123/70 (87) 96 05/20/19 15:32 74 18 99 Nasal Cannula 4.0 36 71 14 95 05/20/19 12:22 78 18 100 Nasal Cannula 4.0 36 75 16 94 05/20/19 12:00 97.3 81 18 136/78 (97) 96 05/20/19 11:45 80 05/20/19 09:00 Nasal Cannula 4.0 05/20/19 08:00 97.3 81 18 158/92 (114) 96 05/20/19 07:55 79 18 99 Nasal Cannula 4.0 36 76 16 93 05/20/19 07:55 96 Nasal Cannula 4.0 36 05/20/19 07:47 84 05/20/19 04:00 97.3 82 18 125/77 (93) 96 05/20/19 04:00 81 05/20/19 03:48 89 20 100 Nasal Cannula 4.0 36 87 20 98 05/20/19 00:00 87 05/20/19 00:00 97.5 95 18 136/82 (100) 97 05/19/19 23:40 88 20 100 Nasal Cannula 4.0 36 87 20 95 Intake and Output 05/19/19 05/20/19 19:00 07:00 Intake Total 1520 ml 140 ml Output Total 1100 ml Balance 1520 ml -960 ml Intake Oral 1520 ml 140 ml Output Urine Total 1100 ml # Voids 4 Current Medications Medications (Trade) Dose Ordered Sig/Tenzin Route PRN Reason Start Time Stop Time Status Last Admin Dose Admin Albuterol/ Ipratropium (Albuterol/ Ipratropium) 3 ml Q4H PRN HHN Shortness of Breath 05/18/19 11:30 05/23/19 11:29 Albuterol/ Ipratropium (Albuterol/ Ipratropium) 3 ml Q4HRT HHN 05/18/19 15:00 05/23/19 14:59 05/20/19 19:18 Citalopram Hydrobromide (celeXA) 20 mg DAILY ORAL 05/14/19 15:30 06/13/19 15:29 05/20/19 08:22 Dextrose (Dextrose 50%) 25 ml Q30M PRN IV Hypoglycemia 05/13/19 22:00 06/12/19 21:59 Dextrose (Dextrose 50%) 50 ml Q30M PRN IV Hypoglycemia 05/13/19 22:00 06/12/19 21:59 Docusate Sodium (Colace) 100 mg THREE TIMES A DAY ORAL 05/19/19 18:00 06/18/19 17:59 05/20/19 17:08 Furosemide (Lasix) 40 mg EVERY 12 HOURS IV 05/17/19 10:30 06/16/19 10:29 05/20/19 21:06 Insulin Aspart (NovoLOG) BEFORE MEALS AND HS SUBQ 05/14/19 06:30 06/13/19 06:29 05/20/19 21:07 Insulin Detemir (Levemir) 10 units Q24H SUBQ 05/13/19 22:00 06/12/19 21:59 05/20/19 21:08 Nateglinide (Starlix) 60 mg TIAC ORAL 05/13/19 11:30 06/12/19 11:29 05/20/19 17:07 Ondansetron HCl (Zofran) 4 mg Q6H PRN IVP Nausea & Vomiting 05/12/19 09:45 06/11/19 09:44 05/16/19 22:04 Pantoprazole (Protonix) 40 mg BID ORAL 05/13/19 18:00 06/13/19 08:59 05/20/19 17:08 Sildenafil Citrate (Revatio) 20 mg THREE TIMES A DAY ORAL 05/17/19 13:00 06/16/19 12:59 05/20/19 17:07 Valproic Acid (Depakene) 125 mg EVERY 12 HOURS NG 05/14/19 21:00 06/13/19 20:59 05/20/19 21:05 Walker Blank MD May 20, 2019 21:23
--- NOTE | 2019-05-20 21:46 | General Progress Note ---
Assessment/Plan Problem List: (1) Constipation ICD Codes: K59.00 - Constipation, unspecified SNOMED: 00368410 (2) Renal insufficiency ICD Codes: N28.9 - Disorder of kidney and ureter, unspecified SNOMED: 143277981, 272357838 (3) COPD exacerbation ICD Codes: J44.1 - Chronic obstructive pulmonary disease with (acute) exacerbation SNOMED: 043038705 (4) UTI (urinary tract infection) ICD Codes: N39.0 - Urinary tract infection, site not specified SNOMED: 81661992 Qualifiers: Qualified Codes: N39.0 - Urinary tract infection, site not specified (5) Hyperlipidemia associated with type 2 diabetes mellitus ICD Codes: E11.69 - Type 2 diabetes mellitus with other specified complication ; E78.5 - Hyperlipidemia, unspecified SNOMED: 468731592, 343985636554 (6) Type 2 diabetes mellitus ICD Codes: E11.9 - Type 2 diabetes mellitus without complications SNOMED: 08214626, 211136753 Qualifiers: Qualified Codes: E11.9 - Type 2 diabetes mellitus without complications (7) Azotemia ICD Codes: R79.89 - Other specified abnormal findings of blood chemistry SNOMED: 134449681 (8) Cholelithiasis ICD Codes: K80.20 - Calculus of gallbladder without cholecystitis without obstruction SNOMED: 813558428 Status: progressing, unchanged Assessment/Plan: still on oxygen lyte abnormality severe pulm htn treatment per cardiology and pulmonary afebrile check suga Subjective Respiratory: Reports: shortness of breath Allergies: Coded Allergies: No Known Allergies (Unverified , 11/08/15) Objective Last 24 Hour Vital Signs Date Time Temp Pulse Resp B/P (MAP) Pulse Ox O2 Delivery O2 Flow Rate FiO2 05/20/19 19:15 91 18 100 Nasal Cannula 4.0 36 90 16 99 05/20/19 19:15 99 Nasal Cannula 4.0 36 05/20/19 16:39 88 05/20/19 16:00 97.3 80 18 123/70 (87) 96 05/20/19 15:32 74 18 99 Nasal Cannula 4.0 36 71 14 95 05/20/19 12:22 78 18 100 Nasal Cannula 4.0 36 75 16 94 05/20/19 12:00 97.3 81 18 136/78 (97) 96 05/20/19 11:45 80 2/6/20 09:00 Nasal Cannula 4.0 05/20/19 08:00 97.3 81 18 158/92 (114) 96 05/20/19 07:55 79 18 99 Nasal Cannula 4.0 36 76 16 93 05/20/19 07:55 96 Nasal Cannula 4.0 36 05/20/19 07:47 84 05/20/19 04:00 97.3 82 18 125/77 (93) 96 05/20/19 04:00 81 05/20/19 03:48 89 20 100 Nasal Cannula 4.0 36 87 20 98 05/20/19 00:00 87 05/20/19 00:00 97.5 95 18 136/82 (100) 97 05/19/19 23:40 88 20 100 Nasal Cannula 4.0 36 87 20 95 Intake and Output 05/19/19 05/20/19 19:00 07:00 Intake Total 1520 ml 140 ml Output Total 1100 ml Balance 1520 ml -960 ml Intake Oral 1520 ml 140 ml Output Urine Total 1100 ml # Voids 4 Height (Feet): 5 Height (Inches): 1.00 Weight (Pounds): 120 Cardiovascular: normal rate Respiratory/Chest: lungs clear Amelie Rios MD May 20, 2019 21:46
[2019-05-21] VITALS: BP 129/66
[2019-05-21] MEDS: Albuterol/Ipratropium 3ml neb HHN SCH ×6 (02:38→23:10)
--- NOTE | 2019-05-21 03:47 | NUR ---
NURSE NOTES: Patient is asleep lying semi-barrett's; resting comfortably. No signs of acute distress or pain noted at this time. On 4L nasal cannula.
[2019-05-21 04:00] VITALS: BP 111/59
[2019-05-21] MEDS: NovoLOG Insulin Flexpen SUBQ SCH ×4 (06:30→21:00)
[2019-05-21] MEDS: Nateglinide 60mg tab ORAL SCH ×3 (06:36→17:04)
[2019-05-21 06:37] LABS: BASOPHILS % (AUTO) 1.1 % (0.0-2.0); EOSINOPHILS % (AUTO) 4.2 % (0.0-3.0); HEMATOCRIT 25.3 % (37.0-47.0); HEMOGLOBIN 8.4 G/DL (12.0-16.0); LYMPHOCYTES % (AUTO) 33.7 % (20.0-45.0); MEAN CORPUSCULAR VOLUME 89 FL (80-99); MONOCYTES % (AUTO) 11.5 % (1.0-10.0); NEUTROPHILS % (AUTO) 49.6 % (45.0-75.0); PLATELET COUNT 346 K/UL (150-450); RED BLOOD COUNT 2.83 M/UL (4.20-5.40); RED CELL DISTRIBUTION WIDTH 18.6 % (11.6-14.8); WHITE BLOOD COUNT 10.5 K/UL (4.8-10.8)
[2019-05-21 07:12] LABS: ALANINE AMINOTRANSFERASE 37 U/L (12-78); ALBUMIN 2.4 G/DL (3.4-5.0); ALBUMIN/GLOBULIN RATIO 0.6 (1.0-2.7); ALKALINE PHOSPHATASE 51 U/L (46-116); ANION GAP 5 mmol/L (5-15); ASPARTATE AMINO TRANSFERASE 49 U/L (15-37); BILIRUBIN,TOTAL 0.2 MG/DL (0.2-1.0); BLOOD UREA NITROGEN 28 mg/dL (7-18); CALCIUM 8.6 MG/DL (8.5-10.1); CARBON DIOXIDE 35 MMOL/L (21-32); CHLORIDE 100 MMOL/L (98-107); CREATININE 1.5 MG/DL (0.55-1.30); PHOSPHORUS 3.8 MG/DL (2.5-4.9); SODIUM 140 MMOL/L (136-145)
--- NOTE | 2019-05-21 07:34 | NUR ---
HAND-OFF: Report given to NEFTALI Cherry.Patient is awake, lying high fowlers, receiving breathing treatment in stable condition.
[2019-05-21 08:00] VITALS: BP 133/84
--- NOTE | 2019-05-21 09:30 | NUR ---
CASE MANAGEMENT: REVIEW 05/21/2019 SI:PULMONARY HTN . SEPSIS. ELEVATED LACTID ACID.ANEMIA.UTI. PLEURAL EFFUSION RENAL INSUFFICIENCY. DIABETES 98.1 87 18 133/84 100% ON NC 4L FiO2 36 WBC 8.4/25.3 BNP 1050 CO2 35 BUN 28 CREAT 1.5 BG 139 URIC ACID 7.4 AST 49 IS:IV MAG SULFATE X3 BAGS (STILL RUNNING FROM 05/20/19) IV LASIX BID PROTONIX PO BID REVATIO PO TID CELEXA PO QD DEPAKENE NG BID K-DUR PO BID IV VENOFER QHS X 5BAGS STARLIX PO TIAC NOVOLOG SQ AC&HS LEVEMIR SQ Q24HR ALBUTEROL HHN Q4HR \: 2E TELE UNIT DCP: FROM [facility] PLAN: CONT TREATMENT OF SEVERE PULMONARY HTN CONT TREATMENT WITH CARDIO
[2019-05-21] MEDS: Revatio 20mg tab ORAL SCH ×3 (09:35→17:04)
[2019-05-21] MEDS: Citalopram Hydrobromide 10mg Tab ORAL SCH (09:35)
[2019-05-21] MEDS: Docusate 100mg/10ml Liq ORAL SCH ×3 (09:35→17:04)
[2019-05-21] MEDS: Valproic Acid 250mg/5ml Liquid NG SCH ×2 (09:35→21:35)
--- NOTE | 2019-05-21 10:02 | Cardiac Electrophysiology PN ---
Assessment/Plan Assessment/Plan 1. Shortness of breath, likely due to the patient's severe pulmonary hypertension and CHF due to diastolic dysfunction.EF 55%. BNP is 9000. On Lasix 40 mg IV bid and sildenafil 20 mg tid for pulmonary hypertension as well. VQ scan intermediate probability. Chest CT angio no PE or dissection 2. Severe pulmonary hypertension with PA pressure of 123. On Sildenefil 20 tid. TAYLOR Blank 3. COPD, on oxygen. Evaluation by Dr. Blank. 4. Pneumonia, leukocytosis, and diabetes. 5. Anemia. DW RN Subjective Subjective No CP in SR in 80s. VQ scan was intermediate probability and had CT chest that showed no PE or dissection Objective Last 24 Hour Vital Signs Date Time Temp Pulse Resp B/P (MAP) Pulse Ox O2 Delivery O2 Flow Rate FiO2 05/21/19 08:00 98.1 87 18 133/84 (100) 100 05/21/19 07:32 88 16 99 Nasal Cannula 4.0 36 82 16 98 05/21/19 07:31 98 Nasal Cannula 4.0 36 05/21/19 04:00 98.4 91 16 111/59 (76) 99 05/21/19 04:00 89 05/21/19 02:38 89 18 100 Nasal Cannula 4.0 36 92 16 99 05/21/19 00:00 95 05/21/19 00:00 98.0 100 16 129/66 (87) 98 05/20/19 23:15 91 18 98 Nasal Cannula 4.0 36 93 16 94 05/20/19 21:00 Nasal Cannula 4.0 05/20/19 20:00 90 05/20/19 20:00 98.9 98 18 113/67 (82) 100 05/20/19 19:15 91 18 100 Nasal Cannula 4.0 36 90 16 99 05/20/19 19:15 99 Nasal Cannula 4.0 36 05/20/19 16:39 88 05/20/19 16:00 97.3 80 18 123/70 (87) 96 05/20/19 15:32 74 18 99 Nasal Cannula 4.0 36 71 14 95 05/20/19 12:22 78 18 100 Nasal Cannula 4.0 36 75 16 94 05/20/19 12:00 97.3 81 18 136/78 (97) 96 2/6/20 11:45 80 Intake and Output 05/20/19 05/21/19 19:00 07:00 Intake Total 1100 ml Output Total 500 ml Balance 1100 ml -500 ml Intake Oral 800 ml IV Total 300 ml Output Urine Total 500 ml # Voids 2 2 Laboratory Tests Test 05/21/19 05:45 White Blood Count 10.5 K/UL (4.8-10.8) Red Blood Count 2.83 M/UL (4.20-5.40) L Hemoglobin 8.4 G/DL (12.0-16.0) L Hematocrit 25.3 % (37.0-47.0) L Mean Corpuscular Volume 89 FL (80-99) Mean Corpuscular Hemoglobin 29.6 PG (27.0-31.0) Mean Corpuscular Hemoglobin Concent 33.2 G/DL (32.0-36.0) Red Cell Distribution Width 18.6 % (11.6-14.8) H Platelet Count 346 K/UL (150-450) Mean Platelet Volume 5.2 FL (6.5-10.1) L Neutrophils (%) (Auto) 49.6 % (45.0-75.0) Lymphocytes (%) (Auto) 33.7 % (20.0-45.0) Monocytes (%) (Auto) 11.5 % (1.0-10.0) H Eosinophils (%) (Auto) 4.2 % (0.0-3.0) H Basophils (%) (Auto) 1.1 % (0.0-2.0) Sodium Level 140 MMOL/L (136-145) Potassium Level 4.0 MMOL/L (3.5-5.1) Chloride Level 100 MMOL/L (98-107) Carbon Dioxide Level 35 MMOL/L (21-32) H Anion Gap 5 mmol/L (5-15) Blood Urea Nitrogen 28 mg/dL (7-18) H Creatinine 1.5 MG/DL (0.55-1.30) H Estimat Glomerular Filtration Rate 34.5 mL/min (>60) Glucose Level 139 MG/DL (74-106) H Uric Acid 7.4 MG/DL (2.6-7.2) H Calcium Level 8.6 MG/DL (8.5-10.1) Phosphorus Level 3.8 MG/DL (2.5-4.9) Magnesium Level 2.2 MG/DL (1.8-2.4) Total Bilirubin 0.2 MG/DL (0.2-1.0) Aspartate Amino Transf (AST/SGOT) 49 U/L (15-37) H Alanine Aminotransferase (ALT/SGPT) 37 U/L (12-78) Alkaline Phosphatase 51 U/L (46-116) C-Reactive Protein, Quantitative < 0.4 mg/dL (0.00-0.90) Pro-B-Type Natriuretic Peptide 1050 pg/mL (0-125) H Total Protein 6.6 G/DL (6.4-8.2) Albumin 2.4 G/DL (3.4-5.0) L Globulin 4.2 g/dL Albumin/Globulin Ratio 0.6 (1.0-2.7) L Objective HEAD AND NECK: Mild JVD. LUNGS: Coarse rhonchi.Decreased breath sounds CARDIOVASCULAR: Shows regular S1 and S2 with no gallop. ABDOMEN: Soft. EXTREMITIES: No pitting edema. Noe Galdamez MD May 21, 2019 10:02
--- NOTE | 2019-05-21 10:50 | Infectious Diseases Prog Note ---
Assessment/Plan Assessment/Plan IMPRESSION: Pneumonia treated Leukocytosis, resolved Acute renal failure. resolved diabetes mellitus, hypertension, COPD, anemia. Sever pulmonary hypertension RECOMMENDATION: Observe off antibiotic CT angiogram : no PE Subjective ROS Limited/Unobtainable: No Constitutional: Reports: no symptoms Respiratory: Reports: no symptoms Gastrointestinal/Abdominal: Reports: no symptoms Genitourinary: Reports: no symptoms Allergies: Coded Allergies: No Known Allergies (Unverified , 11/08/15) Objective Vital Signs Last 24 Hour Vital Signs Date Time Temp Pulse Resp B/P (MAP) Pulse Ox O2 Delivery O2 Flow Rate FiO2 05/21/19 10:20 82 14 98 Nasal Cannula 4.0 36 78 14 96 05/21/19 08:00 98.1 87 18 133/84 (100) 100 05/21/19 07:32 88 16 99 Nasal Cannula 4.0 36 82 16 98 05/21/19 07:31 98 Nasal Cannula 4.0 36 05/21/19 04:00 98.4 91 16 111/59 (76) 99 05/21/19 04:00 89 05/21/19 02:38 89 18 100 Nasal Cannula 4.0 36 92 16 99 05/21/19 00:00 95 05/21/19 00:00 98.0 100 16 129/66 (87) 98 05/20/19 23:15 91 18 98 Nasal Cannula 4.0 36 93 16 94 05/20/19 21:00 Nasal Cannula 4.0 05/20/19 20:00 90 05/20/19 20:00 98.9 98 18 113/67 (82) 100 05/20/19 19:15 91 18 100 Nasal Cannula 4.0 36 90 16 99 05/20/19 19:15 99 Nasal Cannula 4.0 36 05/20/19 16:39 88 05/20/19 16:00 97.3 80 18 123/70 (87) 96 05/20/19 15:32 74 18 99 Nasal Cannula 4.0 36 71 14 95 05/20/19 12:22 78 18 100 Nasal Cannula 4.0 36 75 16 94 05/20/19 12:00 97.3 81 18 136/78 (97) 96 05/20/19 11:45 80 Height (Feet): 5 Height (Inches): 1.00 Weight (Pounds): 120 General Appearance: no acute distress HEENT: mucous membranes moist Respiratory/Chest: lungs clear, other - oxygen by nasal cannula Cardiovascular: normal rate Abdomen: soft, non tender Extremities: no edema Neurologic/Psychiatric: alert, responsive, other - tremors Laboratory Tests Test 05/21/19 05:45 White Blood Count 10.5 K/UL (4.8-10.8) Red Blood Count 2.83 M/UL (4.20-5.40) L Hemoglobin 8.4 G/DL (12.0-16.0) L Hematocrit 25.3 % (37.0-47.0) L Mean Corpuscular Volume 89 FL (80-99) Mean Corpuscular Hemoglobin 29.6 PG (27.0-31.0) Mean Corpuscular Hemoglobin Concent 33.2 G/DL (32.0-36.0) Red Cell Distribution Width 18.6 % (11.6-14.8) H Platelet Count 346 K/UL (150-450) Mean Platelet Volume 5.2 FL (6.5-10.1) L Neutrophils (%) (Auto) 49.6 % (45.0-75.0) Lymphocytes (%) (Auto) 33.7 % (20.0-45.0) Monocytes (%) (Auto) 11.5 % (1.0-10.0) H Eosinophils (%) (Auto) 4.2 % (0.0-3.0) H Basophils (%) (Auto) 1.1 % (0.0-2.0) Sodium Level 140 MMOL/L (136-145) Potassium Level 4.0 MMOL/L (3.5-5.1) Chloride Level 100 MMOL/L (98-107) Carbon Dioxide Level 35 MMOL/L (21-32) H Anion Gap 5 mmol/L (5-15) Blood Urea Nitrogen 28 mg/dL (7-18) H Creatinine 1.5 MG/DL (0.55-1.30) H Estimat Glomerular Filtration Rate 34.5 mL/min (>60) Glucose Level 139 MG/DL (74-106) H Uric Acid 7.4 MG/DL (2.6-7.2) H Calcium Level 8.6 MG/DL (8.5-10.1) Phosphorus Level 3.8 MG/DL (2.5-4.9) Magnesium Level 2.2 MG/DL (1.8-2.4) Total Bilirubin 0.2 MG/DL (0.2-1.0) Aspartate Amino Transf (AST/SGOT) 49 U/L (15-37) H Alanine Aminotransferase (ALT/SGPT) 37 U/L (12-78) Alkaline Phosphatase 51 U/L (46-116) C-Reactive Protein, Quantitative < 0.4 mg/dL (0.00-0.90) Pro-B-Type Natriuretic Peptide 1050 pg/mL (0-125) H Total Protein 6.6 G/DL (6.4-8.2) Albumin 2.4 G/DL (3.4-5.0) L Globulin 4.2 g/dL Albumin/Globulin Ratio 0.6 (1.0-2.7) L Current Medications Medications (Trade) Dose Ordered Sig/Tenzin Route PRN Reason Start Time Stop Time Status Last Admin Dose Admin Albuterol/ Ipratropium (Albuterol/ Ipratropium) 3 ml Q4H PRN HHN Shortness of Breath 05/18/19 11:30 05/23/19 11:29 Albuterol/ Ipratropium (Albuterol/ Ipratropium) 3 ml Q4HRT HHN 05/18/19 15:00 05/23/19 14:59 05/21/19 10:20 Citalopram Hydrobromide (celeXA) 20 mg DAILY ORAL 05/14/19 15:30 06/13/19 15:29 05/21/19 09:35 Dextrose (Dextrose 50%) 25 ml Q30M PRN IV Hypoglycemia 05/13/19 22:00 06/12/19 21:59 Dextrose (Dextrose 50%) 50 ml Q30M PRN IV Hypoglycemia 05/13/19 22:00 06/12/19 21:59 Docusate Sodium (Colace) 100 mg THREE TIMES A DAY ORAL 05/19/19 18:00 06/18/19 17:59 05/21/19 09:35 Furosemide (Lasix) 40 mg EVERY 12 HOURS IV 05/17/19 10:30 06/16/19 10:29 05/21/19 09:34 Insulin Aspart (NovoLOG) BEFORE MEALS AND HS SUBQ 05/14/19 06:30 06/13/19 06:29 05/20/19 21:07 Insulin Detemir (Levemir) 10 units Q24H SUBQ 05/13/19 22:00 06/12/19 21:59 05/20/19 21:08 Nateglinide (Starlix) 60 mg TIAC ORAL 05/13/19 11:30 06/12/19 11:29 05/21/19 06:36 Ondansetron HCl (Zofran) 4 mg Q6H PRN IVP Nausea & Vomiting 05/12/19 09:45 06/11/19 09:44 05/16/19 22:04 Pantoprazole (Protonix) 40 mg BID ORAL 05/13/19 18:00 06/13/19 08:59 05/21/19 09:35 Sildenafil Citrate (Revatio) 20 mg THREE TIMES A DAY ORAL 05/17/19 13:00 06/16/19 12:59 05/21/19 09:35 Valproic Acid (Depakene) 125 mg EVERY 12 HOURS NG 05/14/19 21:00 06/13/19 20:59 05/21/19 09:35 Rogelio Martinez MD May 21, 2019 10:50
--- NOTE | 2019-05-21 11:41 | Nephrology Progress Note ---
Assessment/Plan Problem List: (1) Azotemia (2) Type 2 diabetes mellitus (3) COPD exacerbation (4) Elevated lactic acid level (5) Pulmonary hypertension Assessment: severe Assessment Renal failure COPD Acute- dehydration , ? CKD underlying UTI , High Lactic HyperKalemia DM Anemia DNR Plan correct mag and K and Phos- On Lasix IV and Sildenafil now ABG noted 2D echo noted- Pulm HTN DC Hydrate- Pulm toilet Anemia castro PO protonix Monitor renal parameters Subjective ROS Limited/Unobtainable: No Constitutional: Reports: malaise, other - overall feels better Objective Objective Last 24 Hour Vital Signs Date Time Temp Pulse Resp B/P (MAP) Pulse Ox O2 Delivery O2 Flow Rate FiO2 05/21/19 10:20 82 14 98 Nasal Cannula 4.0 36 78 14 96 05/21/19 09:00 Nasal Cannula 4.0 05/21/19 08:00 87 05/21/19 08:00 98.1 87 18 133/84 (100) 100 05/21/19 07:32 88 16 99 Nasal Cannula 4.0 36 82 16 98 05/21/19 07:31 98 Nasal Cannula 4.0 36 05/21/19 04:00 98.4 91 16 111/59 (76) 99 05/21/19 04:00 89 05/21/19 02:38 89 18 100 Nasal Cannula 4.0 36 92 16 99 05/21/19 00:00 95 05/21/19 00:00 98.0 100 16 129/66 (87) 98 05/20/19 23:15 91 18 98 Nasal Cannula 4.0 36 93 16 94 05/20/19 21:00 Nasal Cannula 4.0 05/20/19 20:00 90 05/20/19 20:00 98.9 98 18 113/67 (82) 100 05/20/19 19:15 91 18 100 Nasal Cannula 4.0 36 90 16 99 05/20/19 19:15 99 Nasal Cannula 4.0 36 05/20/19 16:39 88 05/20/19 16:00 97.3 80 18 123/70 (87) 96 05/20/19 15:32 74 18 99 Nasal Cannula 4.0 36 71 14 95 05/20/19 12:22 78 18 100 Nasal Cannula 4.0 36 75 16 94 05/20/19 12:00 97.3 81 18 136/78 (97) 96 05/20/19 11:45 80 Intake and Output 05/20/19 05/21/19 18:59 06:59 Intake Total 1240 ml Output Total 500 ml Balance 1240 ml -500 ml Intake Oral 940 ml IV Total 300 ml Output Urine Total 500 ml # Voids 2 2 Current Medications Medications (Trade) Dose Ordered Sig/Tenzin Route PRN Reason Start Time Stop Time Status Last Admin Dose Admin Albuterol/ Ipratropium (Albuterol/ Ipratropium) 3 ml Q4H PRN HHN Shortness of Breath 05/18/19 11:30 05/23/19 11:29 Albuterol/ Ipratropium (Albuterol/ Ipratropium) 3 ml Q4HRT HHN 05/18/19 15:00 05/23/19 14:59 05/21/19 10:20 Citalopram Hydrobromide (celeXA) 20 mg DAILY ORAL 05/14/19 15:30 06/13/19 15:29 05/21/19 09:35 Dextrose (Dextrose 50%) 25 ml Q30M PRN IV Hypoglycemia 05/13/19 22:00 06/12/19 21:59 Dextrose (Dextrose 50%) 50 ml Q30M PRN IV Hypoglycemia 05/13/19 22:00 06/12/19 21:59 Docusate Sodium (Colace) 100 mg THREE TIMES A DAY ORAL 05/19/19 18:00 06/18/19 17:59 05/21/19 09:35 Furosemide (Lasix) 40 mg EVERY 12 HOURS IV 05/17/19 10:30 06/16/19 10:29 05/21/19 09:34 Insulin Aspart (NovoLOG) BEFORE MEALS AND HS SUBQ 05/14/19 06:30 06/13/19 06:29 05/20/19 21:07 Insulin Detemir (Levemir) 10 units Q24H SUBQ 05/13/19 22:00 06/12/19 21:59 05/20/19 21:08 Nateglinide (Starlix) 60 mg TIAC ORAL 05/13/19 11:30 06/12/19 11:29 05/21/19 06:36 Ondansetron HCl (Zofran) 4 mg Q6H PRN IVP Nausea & Vomiting 05/12/19 09:45 06/11/19 09:44 05/16/19 22:04 Pantoprazole (Protonix) 40 mg BID ORAL 05/13/19 18:00 06/13/19 08:59 05/21/19 09:35 Sildenafil Citrate (Revatio) 20 mg THREE TIMES A DAY ORAL 05/17/19 13:00 06/16/19 12:59 05/21/19 09:35 Valproic Acid (Depakene) 125 mg EVERY 12 HOURS NG 05/14/19 21:00 06/13/19 20:59 05/21/19 09:35 Laboratory Tests 05/21/19 05:45: White Blood Count 10.5, Red Blood Count 2.83L, Hemoglobin 8.4L, Hematocrit 25.3L , Mean Corpuscular Volume 89, Mean Corpuscular Hemoglobin 29.6, Mean Corpuscular Hemoglobin Concent 33.2, Red Cell Distribution Width 18.6H, Platelet Count 346, Mean Platelet Volume 5.2L, Neutrophils (%) (Auto) 49.6, Lymphocytes (%) (Auto) 33.7, Monocytes (%) (Auto) 11.5H, Eosinophils (%) (Auto) 4.2H, Basophils (%) (Auto) 1.1, Sodium Level 140, Potassium Level 4.0, Chloride Level 100, Carbon Dioxide Level 35H, Anion Gap 5, Blood Urea Nitrogen 28H, Creatinine 1.5H, Estimat Glomerular Filtration Rate 34.5, Glucose Level 139H, Uric Acid 7.4H, Calcium Level 8.6, Phosphorus Level 3.8, Magnesium Level 2.2, Total Bilirubin 0.2, Aspartate Amino Transf (AST/SGOT) 49H, Alanine Aminotransferase (ALT/SGPT) 37, Alkaline Phosphatase 51, C-Reactive Protein, Quantitative < 0.4, Pro-B-Type Natriuretic Peptide 1050H, Total Protein 6.6, Albumin 2.4L, Globulin 4.2, Albumin/Globulin Ratio 0.6L Height (Feet): 5 Height (Inches): 1.00 Weight (Pounds): 120 General Appearance: no apparent distress Cardiovascular: normal rate - -82 rate Respiratory/Chest: decreased breath sounds Abdomen: soft José Miguel Calvert MD May 21, 2019 11:41
[2019-05-21 12:00] VITALS: BP 107/58
--- NOTE | 2019-05-21 14:14 | General Progress Note ---
Assessment/Plan Status: progressing, unchanged Assessment/Plan: Assessment - N/V - resolved - Sepsis - improved - lactic acidosis - improved - Renal failure - RAD - anemia Recommendations - Abx - IVF - po pureed - follow labs - Check OB Subjective Allergies: Coded Allergies: No Known Allergies (Unverified , 11/08/15) Subjective Feels OK tolerating PO Breathing OK Objective Last 24 Hour Vital Signs Date Time Temp Pulse Resp B/P (MAP) Pulse Ox O2 Delivery O2 Flow Rate FiO2 05/21/19 12:00 83 05/21/19 12:00 96.6 81 18 107/58 (74) 98 05/21/19 10:20 82 14 98 Nasal Cannula 4.0 36 78 14 96 05/21/19 09:00 Nasal Cannula 4.0 05/21/19 08:00 87 05/21/19 08:00 98.1 87 18 133/84 (100) 100 05/21/19 07:32 88 16 99 Nasal Cannula 4.0 36 82 16 98 05/21/19 07:31 98 Nasal Cannula 4.0 36 05/21/19 04:00 98.4 91 16 111/59 (76) 99 05/21/19 04:00 89 05/21/19 02:38 89 18 100 Nasal Cannula 4.0 36 92 16 99 05/21/19 00:00 95 05/21/19 00:00 98.0 100 16 129/66 (87) 98 05/20/19 23:15 91 18 98 Nasal Cannula 4.0 36 93 16 94 05/20/19 21:00 Nasal Cannula 4.0 05/20/19 20:00 90 05/20/19 20:00 98.9 98 18 113/67 (82) 100 05/20/19 19:15 91 18 100 Nasal Cannula 4.0 36 90 16 99 05/20/19 19:15 99 Nasal Cannula 4.0 36 05/20/19 16:39 88 05/20/19 16:00 97.3 80 18 123/70 (87) 96 05/20/19 15:32 74 18 99 Nasal Cannula 4.0 36 71 14 95 Intake and Output 05/20/19 05/21/19 19:00 07:00 Intake Total 1100 ml Output Total 500 ml Balance 1100 ml -500 ml Intake Oral 800 ml IV Total 300 ml Output Urine Total 500 ml # Voids 2 2 Laboratory Tests 2/7/20 05:45: White Blood Count 10.5, Red Blood Count 2.83L, Hemoglobin 8.4L, Hematocrit 25.3L , Mean Corpuscular Volume 89, Mean Corpuscular Hemoglobin 29.6, Mean Corpuscular Hemoglobin Concent 33.2, Red Cell Distribution Width 18.6H, Platelet Count 346, Mean Platelet Volume 5.2L, Neutrophils (%) (Auto) 49.6, Lymphocytes (%) (Auto) 33.7, Monocytes (%) (Auto) 11.5H, Eosinophils (%) (Auto) 4.2H, Basophils (%) (Auto) 1.1, Sodium Level 140, Potassium Level 4.0, Chloride Level 100, Carbon Dioxide Level 35H, Anion Gap 5, Blood Urea Nitrogen 28H, Creatinine 1.5H, Estimat Glomerular Filtration Rate 34.5, Glucose Level 139H, Uric Acid 7.4H, Calcium Level 8.6, Phosphorus Level 3.8, Magnesium Level 2.2, Total Bilirubin 0.2, Aspartate Amino Transf (AST/SGOT) 49H, Alanine Aminotransferase (ALT/SGPT) 37, Alkaline Phosphatase 51, C-Reactive Protein, Quantitative < 0.4, Pro-B-Type Natriuretic Peptide 1050H, Total Protein 6.6, Albumin 2.4L, Globulin 4.2, Albumin/Globulin Ratio 0.6L Height (Feet): 5 Height (Inches): 1.00 Weight (Pounds): 120 Objective WDWN AA woman NCAT supple Chest - some ronchi and wheeze RR abd soft NT ND no edema Sangeeta Bianchi MD May 21, 2019 14:14
--- NOTE | 2019-05-21 14:50 | Pulmonology Progress Note ---
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 No rectal bleeding noted. No shortness of breath, orthopnea BEVEL POLISHER. No wheezing, cough or chest pain BEVEL POLISHER. ABG improved, Glucose improved on ISS On puree diet per SR evaluation, NC O2 5L/min Fluid overloaded with significantly elevated BNP level, severe pulmonary hypertension as well as congestive heart failure with diastolic dysfunction. BNP is 9000. On Lasix, sildenafil 20 mg three times a day - Cardiology following No new complaints VQ scan: Intermediate probability for pulmonary embolus. CTA: No evidence of pulmonary embolus, aortic dissection or aneurysm. Primarily interstitial appearing infiltrate present within the right upper lobe. Findings presumably on the basis of pneumonia. Cystic changes noted bilaterally with predominant involvement of the right upper lobe in the area of infiltrate. These may be pre-existing or associated with the pneumonia. PAST MEDICAL HISTORY: Parkinsons Disease, focal weakness, Diabetes, Mood Disorder, Depression, Seizure History, Hyperlipidemia, Constipation, Anemia PAST SURGICAL HISTORY: Tubal ligation. SOCIAL HISTORY: No history of smoking. Denies history of drug or alcohol abuse. ALLERGIES: No known allergies. MEDICATIONS: BEVEL POLISHER: Lipitor, bisacodyl, citalopram, Colace, ferrous sulfate, Lasix, insulin, metformin. On antibiotics per ID, HHN, O2 PRN, ISS FAMILY HISTORY: Noncontributory. REVIEW OF SYSTEMS: Negative aside from above PHYSICAL EXAMINATION: VITAL SIGNS NOTED HEENT: NCAT, moist mm. NECK: No lymphadenopathy, no masses CHEST: Reduced basal BS. CARDIOVASCULAR: Regular rate and rhythm. No murmurs or extra sounds. GASTROINTESTINAL: Soft, nontender, nondistended. No organomegaly. EXTREMITIES: Mild edema. 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 PHYSICIAN OFFICE SECRETARY: Priented, tremor, right arm weaker than left, no seizures, sensation intact ASSESSMENT: Sepsis, vomiting, and diarrhea Diastolic Dysfunction Severe Pulm HTN Volume overload improving with diuresis Pneumonia - possible aspiration Cystuc changes in region of pneumonia will need to be followed as out patient On modified diet H/o constipation Parkinsons Disease Previous h/o focal weakness Diabetes on ISS Anemia Mood Disorder - Depression - Psychiatry following Seizure History Hyperlipidemia PLAN: - Diurese - Sildenafil - VQ pending - CXR - HHN - O2 PRN - wean as possible, prefers FM - does not like NC O2, current FIO2 55% - PPX - Antibiotics per ID - BEVEL POLISHER Medications - Lantus/ISS given hyperglycemia, Increased AG and Ketones now improved - BiPAP PRN and QHS - ST evaluation of swallow noted - GI following - Monitor labs/ABG PRN - Heme following for anemia - CTA DW RN/PMD EKG: LA enlargement CXR: No acute disease initially, currently: extensive bilateral interstitial and airspace disease, likely pneumonia although edema also possibility. Suspect small left and possible trace right pleural effusions KUB: Normal LE Dupplex: Negative VQ scan: Intermediate probability for pulmonary embolus. CTA: No evidence of pulmonary embolus, aortic dissection or aneurysm. Primarily interstitial appearing infiltrate present within the right upper lobe. Findings presumably on the basis of pneumonia. Cystic changes noted bilaterally with predominant involvement of the right upper lobe in the area of infiltrate. These may be pre-existing or associated with the pneumonia. BC : Negative UA: Positive for UTI Subjective ROS Limited/Unobtainable: No Allergies: Coded Allergies: No Known Allergies (Unverified , 11/08/15) Objective Last 24 Hour Vital Signs Date Time Temp Pulse Resp B/P (MAP) Pulse Ox O2 Delivery O2 Flow Rate FiO2 05/21/19 12:00 83 05/21/19 12:00 96.6 81 18 107/58 (74) 98 05/21/19 10:20 82 14 98 Nasal Cannula 4.0 36 78 14 96 05/21/19 09:00 Nasal Cannula 4.0 05/21/19 08:00 87 05/21/19 08:00 98.1 87 18 133/84 (100) 100 05/21/19 07:32 88 16 99 Nasal Cannula 4.0 36 82 16 98 05/21/19 07:31 98 Nasal Cannula 4.0 36 05/21/19 04:00 98.4 91 16 111/59 (76) 99 05/21/19 04:00 89 05/21/19 02:38 89 18 100 Nasal Cannula 4.0 36 92 16 99 05/21/19 00:00 95 05/21/19 00:00 98.0 100 16 129/66 (87) 98 05/20/19 23:15 91 18 98 Nasal Cannula 4.0 36 93 16 94 05/20/19 21:00 Nasal Cannula 4.0 05/20/19 20:00 90 05/20/19 20:00 98.9 98 18 113/67 (82) 100 05/20/19 19:15 91 18 100 Nasal Cannula 4.0 36 90 16 99 05/20/19 19:15 99 Nasal Cannula 4.0 36 05/20/19 16:39 88 05/20/19 16:00 97.3 80 18 123/70 (87) 96 05/20/19 15:32 74 18 99 Nasal Cannula 4.0 36 71 14 95 Intake and Output 05/20/19 05/21/19 19:00 07:00 Intake Total 1100 ml Output Total 500 ml Balance 1100 ml -500 ml Intake Oral 800 ml IV Total 300 ml Output Urine Total 500 ml # Voids 2 2 Laboratory Tests 05/21/19 05:45: White Blood Count 10.5, Red Blood Count 2.83L, Hemoglobin 8.4L, Hematocrit 25.3L , Mean Corpuscular Volume 89, Mean Corpuscular Hemoglobin 29.6, Mean Corpuscular Hemoglobin Concent 33.2, Red Cell Distribution Width 18.6H, Platelet Count 346, Mean Platelet Volume 5.2L, Neutrophils (%) (Auto) 49.6, Lymphocytes (%) (Auto) 33.7, Monocytes (%) (Auto) 11.5H, Eosinophils (%) (Auto) 4.2H, Basophils (%) (Auto) 1.1, Sodium Level 140, Potassium Level 4.0, Chloride Level 100, Carbon Dioxide Level 35H, Anion Gap 5, Blood Urea Nitrogen 28H, Creatinine 1.5H, Estimat Glomerular Filtration Rate 34.5, Glucose Level 139H, Uric Acid 7.4H, Calcium Level 8.6, Phosphorus Level 3.8, Magnesium Level 2.2, Total Bilirubin 0.2, Aspartate Amino Transf (AST/SGOT) 49H, Alanine Aminotransferase (ALT/SGPT) 37, Alkaline Phosphatase 51, C-Reactive Protein, Quantitative < 0.4, Pro-B-Type Natriuretic Peptide 1050H, Total Protein 6.6, Albumin 2.4L, Globulin 4.2, Albumin/Globulin Ratio 0.6L Current Medications Medications (Trade) Dose Ordered Sig/Tenzin Route PRN Reason Start Time Stop Time Status Last Admin Dose Admin Albuterol/ Ipratropium (Albuterol/ Ipratropium) 3 ml Q4H PRN HHN Shortness of Breath 05/18/19 11:30 05/23/19 11:29 Albuterol/ Ipratropium (Albuterol/ Ipratropium) 3 ml Q4HRT HHN 05/18/19 15:00 05/23/19 14:59 05/21/19 10:20 Citalopram Hydrobromide (celeXA) 20 mg DAILY ORAL 05/14/19 15:30 06/13/19 15:29 05/21/19 09:35 Dextrose (Dextrose 50%) 25 ml Q30M PRN IV Hypoglycemia 05/13/19 22:00 06/12/19 21:59 Dextrose (Dextrose 50%) 50 ml Q30M PRN IV Hypoglycemia 05/13/19 22:00 06/12/19 21:59 Docusate Sodium (Colace) 100 mg THREE TIMES A DAY ORAL 05/19/19 18:00 06/18/19 17:59 05/21/19 12:33 Furosemide (Lasix) 40 mg EVERY 12 HOURS IV 05/17/19 10:30 06/16/19 10:29 05/21/19 09:34 Insulin Aspart (NovoLOG) BEFORE MEALS AND HS SUBQ 05/14/19 06:30 06/13/19 06:29 05/21/19 12:35 Insulin Detemir (Levemir) 10 units Q24H SUBQ 05/13/19 22:00 06/12/19 21:59 05/20/19 21:08 Nateglinide (Starlix) 60 mg TIAC ORAL 05/13/19 11:30 06/12/19 11:29 05/21/19 12:33 Ondansetron HCl (Zofran) 4 mg Q6H PRN IVP Nausea & Vomiting 05/12/19 09:45 06/11/19 09:44 05/16/19 22:04 Pantoprazole (Protonix) 40 mg BID ORAL 05/13/19 18:00 06/13/19 08:59 05/21/19 09:35 Sildenafil Citrate (Revatio) 20 mg THREE TIMES A DAY ORAL 05/17/19 13:00 06/16/19 12:59 05/21/19 12:33 Valproic Acid (Depakene) 125 mg EVERY 12 HOURS NG 05/14/19 21:00 06/13/19 20:59 05/21/19 09:35 Walker Blank MD May 21, 2019 14:50
[2019-05-21 16:00] VITALS: BP 109/68
--- NOTE | 2019-05-21 16:51 | Hematology/Onc Progress Note ---
Assessment/Plan Assessment/Plan Assessment and Recs: # Anemia of iron deficiency -- hgb remains low, anemia panel reviewed, ferritin is 20 --> start on iv iron x 5 days --> cea is 4.9 --> no hemolysis is seen --> r/o gi bleed, gi is on board --> blood tx: 1 unit on 05/15, --> hgb was 8.1-->8->9.5-->8.4 # Leukocytosis with Sepsis likely due to uti --> has now improved --> levaquin started-->zosyn-->now off # Ryan on admission --> per renal on ivf # Elevated lactic acid level --> sp abx lecquin # Type 2 diabetes mellitus --> acucchecks qac and qhs --> iss, consider endo # Stage I decubitus ulcer sacrum # Dvt ppx scds --> cta negative for pe Appreciate consultation and michael Rn Subjective Allergies: Coded Allergies: No Known Allergies (Unverified , 11/08/15) Subjective 2: awake ad alert, v mask, s/p blood, on iv iron 2: no bleeding or chills noted, hgb remains stable, at hgb 8 2: remains on celexa, no bleeding, no chills, cbc reordered, no rxn to iv iron 2: is getting ct of the chest with angio, no bleeding or chills 05/20: on 4l nc is pending cta, no bleeding, no night sweats 05/21: no acute events, cta negative for pe, off abx Objective Objective Current Medications Medications (Trade) Dose Ordered Sig/Tenzin Route PRN Reason Start Time Stop Time Status Last Admin Dose Admin Albuterol/ Ipratropium (Albuterol/ Ipratropium) 3 ml Q4H PRN HHN Shortness of Breath 05/18/19 11:30 05/23/19 11:29 Albuterol/ Ipratropium (Albuterol/ Ipratropium) 3 ml Q4HRT HHN 05/18/19 15:00 05/23/19 14:59 05/21/19 10:20 Citalopram Hydrobromide (celeXA) 20 mg DAILY ORAL 05/14/19 15:30 06/13/19 15:29 05/21/19 09:35 Dextrose (Dextrose 50%) 25 ml Q30M PRN IV Hypoglycemia 05/13/19 22:00 06/12/19 21:59 Dextrose (Dextrose 50%) 50 ml Q30M PRN IV Hypoglycemia 05/13/19 22:00 06/12/19 21:59 Docusate Sodium (Colace) 100 mg THREE TIMES A DAY ORAL 05/19/19 18:00 06/18/19 17:59 05/21/19 12:33 Furosemide (Lasix) 40 mg EVERY 12 HOURS IV 05/17/19 10:30 06/16/19 10:29 05/21/19 09:34 Insulin Aspart (NovoLOG) BEFORE MEALS AND HS SUBQ 05/14/19 06:30 06/13/19 06:29 05/21/19 12:35 Insulin Detemir (Levemir) 10 units Q24H SUBQ 05/13/19 22:00 06/12/19 21:59 05/20/19 21:08 Nateglinide (Starlix) 60 mg TIAC ORAL 05/13/19 11:30 06/12/19 11:29 05/21/19 12:33 Ondansetron HCl (Zofran) 4 mg Q6H PRN IVP Nausea & Vomiting 05/12/19 09:45 06/11/19 09:44 05/16/19 22:04 Pantoprazole (Protonix) 40 mg BID ORAL 05/13/19 18:00 06/13/19 08:59 05/21/19 09:35 Sildenafil Citrate (Revatio) 20 mg THREE TIMES A DAY ORAL 05/17/19 13:00 06/16/19 12:59 05/21/19 12:33 Valproic Acid (Depakene) 125 mg EVERY 12 HOURS NG 05/14/19 21:00 06/13/19 20:59 05/21/19 09:35 Last 24 Hour Vital Signs Date Time Temp Pulse Resp B/P (MAP) Pulse Ox O2 Delivery O2 Flow Rate FiO2 05/21/19 16:00 84 05/21/19 16:00 98.7 61 19 109/68 (82) 100 05/21/19 12:00 83 05/21/19 12:00 96.6 81 18 107/58 (74) 98 05/21/19 10:20 82 14 98 Nasal Cannula 4.0 36 78 14 96 05/21/19 09:00 Nasal Cannula 4.0 05/21/19 08:00 87 05/21/19 08:00 98.1 87 18 133/84 (100) 100 05/21/19 07:32 88 16 99 Nasal Cannula 4.0 36 82 16 98 05/21/19 07:31 98 Nasal Cannula 4.0 36 05/21/19 04:00 98.4 91 16 111/59 (76) 99 05/21/19 04:00 89 05/21/19 02:38 89 18 100 Nasal Cannula 4.0 36 92 16 99 05/21/19 00:00 95 05/21/19 00:00 98.0 100 16 129/66 (87) 98 05/20/19 23:15 91 18 98 Nasal Cannula 4.0 36 93 16 94 05/20/19 21:00 Nasal Cannula 4.0 05/20/19 20:00 90 05/20/19 20:00 98.9 98 18 113/67 (82) 100 05/20/19 19:15 91 18 100 Nasal Cannula 4.0 36 90 16 99 05/20/19 19:15 99 Nasal Cannula 4.0 36 05/20/19 16:39 88 05/20/19 16:00 97.3 80 18 123/70 (87) 96 05/20/19 15:32 74 18 99 Nasal Cannula 4.0 36 71 14 95 05/20/19 12:22 78 18 100 Nasal Cannula 4.0 36 75 16 94 05/20/19 12:00 97.3 81 18 136/78 (97) 96 05/20/19 11:45 80 05/20/19 09:00 Nasal Cannula 4.0 05/20/19 08:00 97.3 81 18 158/92 (114) 96 05/20/19 07:55 79 18 99 Nasal Cannula 4.0 36 76 16 93 05/20/19 07:55 96 Nasal Cannula 4.0 36 05/20/19 07:47 84 05/20/19 04:00 97.3 82 18 125/77 (93) 96 05/20/19 04:00 81 05/20/19 03:48 89 20 100 Nasal Cannula 4.0 36 87 20 98 05/20/19 00:00 87 05/20/19 00:00 97.5 95 18 136/82 (100) 97 05/19/19 23:40 88 20 100 Nasal Cannula 4.0 36 87 20 95 05/19/19 20:20 97.7 90 18 120/80 (93) 93 05/19/19 20:16 Nasal Cannula 4.0 05/19/19 19:57 95 Nasal Cannula 4.0 36 05/19/19 19:57 89 20 98 Nasal Cannula 4.0 36 86 20 95 05/19/19 19:51 88 Intake and Output 05/20/19 05/21/19 19:00 07:00 Intake Total 1100 ml Output Total 500 ml Balance 1100 ml -500 ml Intake Oral 800 ml IV Total 300 ml Output Urine Total 500 ml # Voids 2 2 Labs Test 05/19/19 06:28 05/21/19 05:45 White Blood Count 9.3 K/UL (4.8-10.8) 10.5 K/UL (4.8-10.8) Red Blood Count 3.24 M/UL (4.20-5.40) 2.83 M/UL (4.20-5.40) Hemoglobin 9.5 G/DL (12.0-16.0) 8.4 G/DL (12.0-16.0) Hematocrit 28.0 % (37.0-47.0) 25.3 % (37.0-47.0) Mean Corpuscular Volume 86 FL (80-99) 89 FL (80-99) Mean Corpuscular Hemoglobin 29.2 PG (27.0-31.0) 29.6 PG (27.0-31.0) Mean Corpuscular Hemoglobin Concent 33.8 G/DL (32.0-36.0) 33.2 G/DL (32.0-36.0) Red Cell Distribution Width 17.5 % (11.6-14.8) 18.6 % (11.6-14.8) Platelet Count 338 K/UL (150-450) 346 K/UL (150-450) Mean Platelet Volume 5.2 FL (6.5-10.1) 5.2 FL (6.5-10.1) Neutrophils (%) (Auto) 55.4 % (45.0-75.0) 49.6 % (45.0-75.0) Lymphocytes (%) (Auto) 26.2 % (20.0-45.0) 33.7 % (20.0-45.0) Monocytes (%) (Auto) 11.8 % (1.0-10.0) 11.5 % (1.0-10.0) Eosinophils (%) (Auto) 5.3 % (0.0-3.0) 4.2 % (0.0-3.0) Basophils (%) (Auto) 1.3 % (0.0-2.0) 1.1 % (0.0-2.0) Sodium Level 142 MMOL/L (136-145) 140 MMOL/L (136-145) Potassium Level 5.1 MMOL/L (3.5-5.1) 4.0 MMOL/L (3.5-5.1) Chloride Level 103 MMOL/L (98-107) 100 MMOL/L (98-107) Carbon Dioxide Level 33 MMOL/L (21-32) 35 MMOL/L (21-32) Anion Gap 6 mmol/L (5-15) 5 mmol/L (5-15) Blood Urea Nitrogen 13 mg/dL (7-18) 28 mg/dL (7-18) Creatinine 1.2 MG/DL (0.55-1.30) 1.5 MG/DL (0.55-1.30) Estimat Glomerular Filtration Rate 44.7 mL/min (>60) 34.5 mL/min (>60) Glucose Level 141 MG/DL (74-106) 139 MG/DL (74-106) Calcium Level 9.2 MG/DL (8.5-10.1) 8.6 MG/DL (8.5-10.1) Phosphorus Level 5.2 MG/DL (2.5-4.9) 3.8 MG/DL (2.5-4.9) Magnesium Level 1.6 MG/DL (1.8-2.4) 2.2 MG/DL (1.8-2.4) Total Bilirubin 0.2 MG/DL (0.2-1.0) 0.2 MG/DL (0.2-1.0) Aspartate Amino Transf (AST/SGOT) 28 U/L (15-37) 49 U/L (15-37) Alanine Aminotransferase (ALT/SGPT) 25 U/L (12-78) 37 U/L (12-78) Alkaline Phosphatase 43 U/L (46-116) 51 U/L (46-116) C-Reactive Protein, Quantitative 1.0 mg/dL (0.00-0.90) < 0.4 mg/dL (0.00-0.90) Pro-B-Type Natriuretic Peptide 2542 pg/mL (0-125) 1050 pg/mL (0-125) Total Protein 6.6 G/DL (6.4-8.2) 6.6 G/DL (6.4-8.2) Albumin 2.4 G/DL (3.4-5.0) 2.4 G/DL (3.4-5.0) Globulin 4.2 g/dL 4.2 g/dL Albumin/Globulin Ratio 0.6 (1.0-2.7) 0.6 (1.0-2.7) Uric Acid 7.4 MG/DL (2.6-7.2) Height (Feet): 5 Height (Inches): 1.00 Weight (Pounds): 120 Objective Physical Exam Vitals: reviewed General: alert, non-toxic, thin, other - Frail, Chronically Ill Head: normocephalic, atraumatic Heent: bilateral eye normal inspection, bilateral eye PERRl Respiratory: lungs clear, normal breath sounds, V mask++ Cardiovascular: regular rate, rhythm, no edema Gi: non tender, soft, decreased bowel sounds Gu: no CVA tenderness Msk: no calf tenderness, + Atrophy Neuro: alert, sensory intact, w motor weakness Psychiatric: mood/affect normal Skin: ++ Danie Jackson MD May 21, 2019 16:51
--- NOTE | 2019-05-21 17:17 | NUR ---
SWALLOW STATUS/WEEKLY SUMMARY PATIENT CLEARED FOR ST INTERVENTION BY NEFTALI [facility]. PATIENT BEING FOLLOWED FOR DYSPHAGIA (SEE INITIAL EVAL FOR DETAILS). GOAL WAS MET THIS WEEK FOR SAFE/SUFFICIENT P.O. INTAKE WITH NO OVERT S/S OF ASPIRATION. (AVG 70% INTAKE OF MEALS) GOAL ALSO MET FOR STAFF TRAINING/WITH/RETURN DEMONSTRATION RELATIVE TO MEALTIME PROTOCOL TO MINIMIZE RISK OF ASPIRATION WHICH IS POSTED AT BEDSIDE PLAN: CONTINUE PER POC.
[2019-05-21 20:00] VITALS: BP 125/73
--- NOTE | 2019-05-21 20:55 | NUR ---
NURSE NOTES: Received patient from Dilip LINDSAY, patient in stable condition, AOx2, denies pain at this time, able to make needs known to a degree, IV sites asymptomatic, intact, side rails padded fro seizure precautions, bed low&locked, side rails upx3, call light within reach, will continue to monitor and reassess
--- NOTE | 2019-05-21 21:10 | General Progress Note ---
Assessment/Plan Problem List: (1) Constipation ICD Codes: K59.00 - Constipation, unspecified SNOMED: 27750617 (2) Renal insufficiency ICD Codes: N28.9 - Disorder of kidney and ureter, unspecified SNOMED: 139090008, 872611795 (3) COPD exacerbation ICD Codes: J44.1 - Chronic obstructive pulmonary disease with (acute) exacerbation SNOMED: 306715253 (4) UTI (urinary tract infection) ICD Codes: N39.0 - Urinary tract infection, site not specified SNOMED: 45718000 Qualifiers: Qualified Codes: N39.0 - Urinary tract infection, site not specified (5) Hyperlipidemia associated with type 2 diabetes mellitus ICD Codes: E11.69 - Type 2 diabetes mellitus with other specified complication ; E78.5 - Hyperlipidemia, unspecified SNOMED: 314517418, 881010205438 (6) Type 2 diabetes mellitus ICD Codes: E11.9 - Type 2 diabetes mellitus without complications SNOMED: 41299040, 035353000 Qualifiers: Qualified Codes: E11.9 - Type 2 diabetes mellitus without complications (7) Azotemia ICD Codes: R79.89 - Other specified abnormal findings of blood chemistry SNOMED: 992237160 (8) Cholelithiasis ICD Codes: K80.20 - Calculus of gallbladder without cholecystitis without obstruction SNOMED: 339467471 Status: progressing, unchanged Assessment/Plan: off oxygen sob improving afebrile niddm psych pt severe pulm htn Subjective ROS Limited/Unobtainable: Yes Allergies: Coded Allergies: No Known Allergies (Unverified , 11/08/15) Objective Last 24 Hour Vital Signs Date Time Temp Pulse Resp B/P (MAP) Pulse Ox O2 Delivery O2 Flow Rate FiO2 05/21/19 18:57 98 Nasal Cannula 2.0 28 05/21/19 18:54 84 18 100 Nasal Cannula 4.0 36 88 16 98 05/21/19 16:00 84 05/21/19 16:00 98.7 61 19 109/68 (82) 100 05/21/19 12:00 83 05/21/19 12:00 96.6 81 18 107/58 (74) 98 05/21/19 10:20 82 14 98 Nasal Cannula 4.0 36 78 14 96 05/21/19 09:00 Nasal Cannula 4.0 2/7/20 08:00 87 05/21/19 08:00 98.1 87 18 133/84 (100) 100 05/21/19 07:32 88 16 99 Nasal Cannula 4.0 36 82 16 98 05/21/19 07:31 98 Nasal Cannula 4.0 36 05/21/19 04:00 98.4 91 16 111/59 (76) 99 05/21/19 04:00 89 05/21/19 02:38 89 18 100 Nasal Cannula 4.0 36 92 16 99 05/21/19 00:00 95 05/21/19 00:00 98.0 100 16 129/66 (87) 98 05/20/19 23:15 91 18 98 Nasal Cannula 4.0 36 93 16 94 Intake and Output 05/20/19 05/21/19 19:00 07:00 Intake Total 1100 ml Output Total 500 ml Balance 1100 ml -500 ml Intake Oral 800 ml IV Total 300 ml Output Urine Total 500 ml # Voids 2 2 Laboratory Tests 05/21/19 05:45: White Blood Count 10.5, Red Blood Count 2.83L, Hemoglobin 8.4L, Hematocrit 25.3L , Mean Corpuscular Volume 89, Mean Corpuscular Hemoglobin 29.6, Mean Corpuscular Hemoglobin Concent 33.2, Red Cell Distribution Width 18.6H, Platelet Count 346, Mean Platelet Volume 5.2L, Neutrophils (%) (Auto) 49.6, Lymphocytes (%) (Auto) 33.7, Monocytes (%) (Auto) 11.5H, Eosinophils (%) (Auto) 4.2H, Basophils (%) (Auto) 1.1, Sodium Level 140, Potassium Level 4.0, Chloride Level 100, Carbon Dioxide Level 35H, Anion Gap 5, Blood Urea Nitrogen 28H, Creatinine 1.5H, Estimat Glomerular Filtration Rate 34.5, Glucose Level 139H, Uric Acid 7.4H, Calcium Level 8.6, Phosphorus Level 3.8, Magnesium Level 2.2, Total Bilirubin 0.2, Aspartate Amino Transf (AST/SGOT) 49H, Alanine Aminotransferase (ALT/SGPT) 37, Alkaline Phosphatase 51, C-Reactive Protein, Quantitative < 0.4, Pro-B-Type Natriuretic Peptide 1050H, Total Protein 6.6, Albumin 2.4L, Globulin 4.2, Albumin/Globulin Ratio 0.6L Height (Feet): 5 Height (Inches): 1.00 Weight (Pounds): 120 Neck: supple Cardiovascular: normal rate Respiratory/Chest: lungs clear Amelie Rios MD May 21, 2019 21:10
[2019-05-21] MEDS: Levemir Flexpen SUBQ SCH (21:42)
--- NOTE | 2019-05-21 22:00 | Progress Note ---
DATE: 05/21/2019 SUBJECTIVE: The patient is in bed. Continues to have episodes of anxiety. Overall manageable. No behavior issues noted. Calm and cooperative. MENTAL STATUS EXAMINATION: The patient is alert, oriented times self, place. He did not know the date. Mood is anxious. Affect is constricted, congruent with mood. Thought process is concrete. Thought content, no suicidal or homicidal ideation. ASSESSMENT: Stable. PLAN: 1. We will continue current medications. 2. Provide the patient with reality orientation and supportive therapy. Stephanie Ybarra M.D. DR: HERIBERTO JOB#: [id number] CC:
[2019-05-22] VITALS: BP 130/82
[2019-05-22] MEDS: Albuterol/Ipratropium 3ml neb HHN SCH ×6 (03:04→23:08)
[2019-05-22 04:00] VITALS: BP 139/73
[2019-05-22] MEDS: NovoLOG Insulin Flexpen SUBQ SCH ×4 (06:24→21:06)
[2019-05-22] MEDS: Nateglinide 60mg tab ORAL SCH ×3 (06:24→17:11)
--- NOTE | 2019-05-22 06:47 | General Progress Note ---
Assessment/Plan Status: progressing, unchanged Assessment/Plan: Assessment/Plan Status: progressing, unchanged Assessment/Plan: Assessment - N/V - resolved - Sepsis - improved - lactic acidosis - improved - Renal failure - RAD - anemia Recommendations - Abx - IVF - po pureed - follow labs - Check OB Subjective ROS Limited/Unobtainable: No Allergies: Coded Allergies: No Known Allergies (Unverified , 11/08/15) Objective Last 24 Hour Vital Signs Date Time Temp Pulse Resp B/P (MAP) Pulse Ox O2 Delivery O2 Flow Rate FiO2 05/22/19 04:00 86 05/22/19 04:00 98.7 93 20 139/73 (95) 96 05/22/19 03:04 78 17 100 Nasal Cannula 4.0 36 81 14 98 05/22/19 00:16 91 05/22/19 00:00 98.6 92 18 130/82 (98) 95 05/21/19 23:10 84 16 100 Nasal Cannula 4.0 36 85 16 98 05/21/19 21:00 Nasal Cannula 4.0 05/21/19 20:00 98.1 95 18 125/73 (90) 100 05/21/19 20:00 95 05/21/19 18:57 98 Nasal Cannula 2.0 28 05/21/19 18:54 84 18 100 Nasal Cannula 4.0 36 88 16 98 05/21/19 16:00 84 05/21/19 16:00 98.7 61 19 109/68 (82) 100 05/21/19 12:00 83 05/21/19 12:00 96.6 81 18 107/58 (74) 98 05/21/19 10:20 82 14 98 Nasal Cannula 4.0 36 78 14 96 05/21/19 09:00 Nasal Cannula 4.0 05/21/19 08:00 87 05/21/19 08:00 98.1 87 18 133/84 (100) 100 05/21/19 07:32 88 16 99 Nasal Cannula 4.0 36 82 16 98 05/21/19 07:31 98 Nasal Cannula 4.0 36 Intake and Output 05/21/19 05/22/19 19:00 07:00 Intake Total 1800 ml Output Total 800 ml 800 ml Balance -800 ml 1000 ml Intake Oral 800 ml IV Total 1000 ml Output Urine Total 800 ml 800 ml # Voids 2 2 # Bowel Movements 1 Height (Feet): 5 Height (Inches): 1.00 Weight (Pounds): 120 General Appearance: alert EENT: normal ENT inspection Neck: supple Cardiovascular: normal rate Respiratory/Chest: decreased breath sounds Abdomen: normal bowel sounds, non tender, soft Extremities: non-tender Isaias Tamez MD May 22, 2019 06:47
[2019-05-22 07:12] LABS: BASOPHILS % (AUTO) 1.4 % (0.0-2.0); EOSINOPHILS % (AUTO) 4.5 % (0.0-3.0); HEMATOCRIT 24.9 % (37.0-47.0); HEMOGLOBIN 8.2 G/DL (12.0-16.0); MEAN CORPUSCULAR VOLUME 91 FL (80-99); MONOCYTES % (AUTO) 9.1 % (1.0-10.0); PLATELET COUNT 377 K/UL (150-450); RED BLOOD COUNT 2.73 M/UL (4.20-5.40); RED CELL DISTRIBUTION WIDTH 19.5 % (11.6-14.8); WHITE BLOOD COUNT 11.7 K/UL (4.8-10.8)
--- NOTE | 2019-05-22 07:48 | NUR ---
HAND-OFF: Report given to NEFTALI Puri patient in stable condition,plan of care endorsed.
[2019-05-22 07:53] LABS: ALANINE AMINOTRANSFERASE 39 U/L (12-78); ALBUMIN 2.6 G/DL (3.4-5.0); ALBUMIN/GLOBULIN RATIO 0.7 (1.0-2.7); ALKALINE PHOSPHATASE 49 U/L (46-116); ANION GAP 5 mmol/L (5-15); ASPARTATE AMINO TRANSFERASE 53 U/L (15-37); BILIRUBIN,TOTAL < 0.1 MG/DL (0.2-1.0); BLOOD UREA NITROGEN 27 mg/dL (7-18); CALCIUM 8.8 MG/DL (8.5-10.1); CARBON DIOXIDE 34 MMOL/L (21-32); CHLORIDE 102 MMOL/L (98-107); CREATININE 1.2 MG/DL (0.55-1.30); PHOSPHORUS 4.1 MG/DL (2.5-4.9); POTASSIUM 4.4 MMOL/L (3.5-5.1); SODIUM 141 MMOL/L (136-145)
[2019-05-22 08:00] VITALS: BP 130/78
--- NOTE | 2019-05-22 08:15 | NUR ---
NURSE NOTES: Received patient from Juan Malone. Patient is awake in bed verbally responsive. No complain of pain or discomfort at this time. Fall/Aspiration/seizure precautions in place. call regan within patients reach. will follow.
[2019-05-22] MEDS: Citalopram Hydrobromide 10mg Tab ORAL SCH (09:24)
[2019-05-22] MEDS: Revatio 20mg tab ORAL SCH ×3 (09:24→17:11)
[2019-05-22] MEDS: Docusate 100mg/10ml Liq ORAL SCH ×3 (09:24→17:11)
[2019-05-22] MEDS: Valproic Acid 250mg/5ml Liquid NG SCH ×2 (09:24→21:04)
--- NOTE | 2019-05-22 09:40 | Nephrology Progress Note ---
Assessment/Plan Problem List: (1) Azotemia (2) Type 2 diabetes mellitus (3) COPD exacerbation (4) Elevated lactic acid level (5) Pulmonary hypertension Assessment: severe Assessment Renal failure COPD Acute- dehydration , ? CKD underlying UTI , High Lactic HyperKalemia DM Anemia DNR Plan correct mag and K and Phos- On Lasix IV and Sildenafil now ABG noted 2D echo noted- Pulm HTN DC Hydrate- Pulm toilet Anemia castro PO protonix Monitor renal parameters Subjective ROS Limited/Unobtainable: No Constitutional: Reports: malaise Objective Objective Last 24 Hour Vital Signs Date Time Temp Pulse Resp B/P (MAP) Pulse Ox O2 Delivery O2 Flow Rate FiO2 05/22/19 08:00 97.6 109 21 130/78 (95) 95 05/22/19 06:55 79 15 100 Nasal Cannula 4.0 36 83 16 98 05/22/19 06:45 100 Nasal Cannula 4.0 36 05/22/19 04:00 86 05/22/19 04:00 98.7 93 20 139/73 (95) 96 05/22/19 03:04 78 17 100 Nasal Cannula 4.0 36 81 14 98 05/22/19 00:16 91 05/22/19 00:00 98.6 92 18 130/82 (98) 95 05/21/19 23:10 84 16 100 Nasal Cannula 4.0 36 85 16 98 05/21/19 21:00 Nasal Cannula 4.0 05/21/19 20:00 98.1 95 18 125/73 (90) 100 05/21/19 20:00 95 05/21/19 18:57 98 Nasal Cannula 2.0 28 05/21/19 18:54 84 18 100 Nasal Cannula 4.0 36 88 16 98 05/21/19 16:00 84 05/21/19 16:00 98.7 61 19 109/68 (82) 100 05/21/19 12:00 83 05/21/19 12:00 96.6 81 18 107/58 (74) 98 05/21/19 10:20 82 14 98 Nasal Cannula 4.0 36 78 14 96 Intake and Output 05/21/19 05/22/19 19:00 07:00 Intake Total 1800 ml Output Total 800 ml 800 ml Balance -800 ml 1000 ml Intake Oral 800 ml IV Total 1000 ml Output Urine Total 800 ml 800 ml # Voids 2 2 # Bowel Movements 1 Laboratory Tests 05/22/19 06:05: White Blood Count 11.7H, Red Blood Count 2.73L, Hemoglobin 8.2L, Hematocrit 24.9L, Mean Corpuscular Volume 91, Mean Corpuscular Hemoglobin 30.1, Mean Corpuscular Hemoglobin Concent 33.0, Red Cell Distribution Width 19.5H, Platelet Count 377, Mean Platelet Volume 5.5L, Neutrophils (%) (Auto) 54.0, Lymphocytes (%) (Auto) 31.0, Monocytes (%) (Auto) 9.1, Eosinophils (%) (Auto) 4.5H, Basophils (%) (Auto) 1.4, Sodium Level 141, Potassium Level 4.4, Chloride Level 102, Carbon Dioxide Level 34H, Anion Gap 5, Blood Urea Nitrogen 27H, Creatinine 1.2, Estimat Glomerular Filtration Rate 44.7, Glucose Level 164H, Uric Acid 8.5H, Calcium Level 8.8, Phosphorus Level 4.1, Magnesium Level 2.0, Total Bilirubin < 0.1L, Aspartate Amino Transf (AST/SGOT) 53H, Alanine Aminotransferase (ALT/SGPT) 39, Alkaline Phosphatase 49, C-Reactive Protein, Quantitative < 0.4, Pro-B-Type Natriuretic Peptide 857H, Total Protein 6.4, Albumin 2.6L, Globulin 3.8, Albumin/Globulin Ratio 0.7L Height (Feet): 5 Height (Inches): 1.00 Weight (Pounds): 120 General Appearance: no apparent distress Cardiovascular: tachycardia Respiratory/Chest: decreased breath sounds Objective no change José Miguel Calvert MD May 22, 2019 09:40
[2019-05-22 12:00] VITALS: BP 123/86
--- NOTE | 2019-05-22 13:30 | Cardiac Electrophysiology PN ---
Assessment/Plan Assessment/Plan 1. Shortness of breath due to severe pulmonary hypertension and CHF due to diastolic dysfunction.EF 55%. BNP is 9000. Decrease Lasix to 40 mg po daily and sildenafil 20 mg tid for pulmonary hypertension as well. VQ scan intermediate probability. Chest CT angio no PE or dissection 2. Severe pulmonary hypertension with PA pressure of 123. On Sildenefil 20 tid. TAYLOR Blank 3. COPD, on oxygen. Evaluation by Dr. Blank. 4. Pneumonia, leukocytosis, and diabetes. 5. Anemia. DW RN Subjective Subjective No CP in SR in 80s. VQ scan was intermediate probability and had CT chest that showed no PE or dissection Comfortable in NAD. DC planning. RN at bedside Objective Last 24 Hour Vital Signs Date Time Temp Pulse Resp B/P (MAP) Pulse Ox O2 Delivery O2 Flow Rate FiO2 05/22/19 12:00 98.7 95 20 123/86 (98) 97 05/22/19 10:27 69 16 99 Nasal Cannula 2.0 28 64 14 97 05/22/19 09:00 92 05/22/19 09:00 Nasal Cannula 4.0 05/22/19 08:00 97.6 109 21 130/78 (95) 95 05/22/19 06:55 79 15 100 Nasal Cannula 4.0 36 83 16 98 05/22/19 06:45 100 Nasal Cannula 4.0 36 05/22/19 04:00 86 05/22/19 04:00 98.7 93 20 139/73 (95) 96 05/22/19 03:04 78 17 100 Nasal Cannula 4.0 36 81 14 98 05/22/19 00:16 91 05/22/19 00:00 98.6 92 18 130/82 (98) 95 05/21/19 23:10 84 16 100 Nasal Cannula 4.0 36 85 16 98 05/21/19 21:00 Nasal Cannula 4.0 05/21/19 20:00 98.1 95 18 125/73 (90) 100 05/21/19 20:00 95 05/21/19 18:57 98 Nasal Cannula 2.0 28 05/21/19 18:54 84 18 100 Nasal Cannula 4.0 36 88 16 98 05/21/19 16:00 84 05/21/19 16:00 98.7 61 19 109/68 (82) 100 Intake and Output 05/21/19 05/22/19 19:00 07:00 Intake Total 1800 ml Output Total 800 ml 800 ml Balance -800 ml 1000 ml Intake Oral 800 ml IV Total 1000 ml Output Urine Total 800 ml 800 ml # Voids 2 2 # Bowel Movements 1 Laboratory Tests Test 05/22/19 06:05 White Blood Count 11.7 K/UL (4.8-10.8) H Red Blood Count 2.73 M/UL (4.20-5.40) L Hemoglobin 8.2 G/DL (12.0-16.0) L Hematocrit 24.9 % (37.0-47.0) L Mean Corpuscular Volume 91 FL (80-99) Mean Corpuscular Hemoglobin 30.1 PG (27.0-31.0) Mean Corpuscular Hemoglobin Concent 33.0 G/DL (32.0-36.0) Red Cell Distribution Width 19.5 % (11.6-14.8) H Platelet Count 377 K/UL (150-450) Mean Platelet Volume 5.5 FL (6.5-10.1) L Neutrophils (%) (Auto) 54.0 % (45.0-75.0) Lymphocytes (%) (Auto) 31.0 % (20.0-45.0) Monocytes (%) (Auto) 9.1 % (1.0-10.0) Eosinophils (%) (Auto) 4.5 % (0.0-3.0) H Basophils (%) (Auto) 1.4 % (0.0-2.0) Sodium Level 141 MMOL/L (136-145) Potassium Level 4.4 MMOL/L (3.5-5.1) Chloride Level 102 MMOL/L (98-107) Carbon Dioxide Level 34 MMOL/L (21-32) H Anion Gap 5 mmol/L (5-15) Blood Urea Nitrogen 27 mg/dL (7-18) H Creatinine 1.2 MG/DL (0.55-1.30) Estimat Glomerular Filtration Rate 44.7 mL/min (>60) Glucose Level 164 MG/DL (74-106) H Uric Acid 8.5 MG/DL (2.6-7.2) H Calcium Level 8.8 MG/DL (8.5-10.1) Phosphorus Level 4.1 MG/DL (2.5-4.9) Magnesium Level 2.0 MG/DL (1.8-2.4) Total Bilirubin < 0.1 MG/DL (0.2-1.0) L Aspartate Amino Transf (AST/SGOT) 53 U/L (15-37) H Alanine Aminotransferase (ALT/SGPT) 39 U/L (12-78) Alkaline Phosphatase 49 U/L (46-116) C-Reactive Protein, Quantitative < 0.4 mg/dL (0.00-0.90) Pro-B-Type Natriuretic Peptide 857 pg/mL (0-125) H Total Protein 6.4 G/DL (6.4-8.2) Albumin 2.6 G/DL (3.4-5.0) L Globulin 3.8 g/dL Albumin/Globulin Ratio 0.7 (1.0-2.7) L Objective HEAD AND NECK: Mild JVD. LUNGS: Coarse rhonchi.Decreased breath sounds CARDIOVASCULAR: Shows regular S1 and S2 with no gallop. ABDOMEN: Soft. EXTREMITIES: No pitting edema. Noe Galdamez MD May 22, 2019 13:30
[2019-05-22 16:00] VITALS: BP 135/96
--- NOTE | 2019-05-22 16:45 | General Progress Note ---
Assessment/Plan Problem List: (1) Constipation ICD Codes: K59.00 - Constipation, unspecified SNOMED: 33977973 (2) Renal insufficiency ICD Codes: N28.9 - Disorder of kidney and ureter, unspecified SNOMED: 362349478, 617942773 (3) COPD exacerbation ICD Codes: J44.1 - Chronic obstructive pulmonary disease with (acute) exacerbation SNOMED: 657191985 (4) UTI (urinary tract infection) ICD Codes: N39.0 - Urinary tract infection, site not specified SNOMED: 63908519 Qualifiers: Qualified Codes: N39.0 - Urinary tract infection, site not specified (5) Hyperlipidemia associated with type 2 diabetes mellitus ICD Codes: E11.69 - Type 2 diabetes mellitus with other specified complication ; E78.5 - Hyperlipidemia, unspecified SNOMED: 122509018, 913522074038 (6) Type 2 diabetes mellitus ICD Codes: E11.9 - Type 2 diabetes mellitus without complications SNOMED: 96512584, 054904277 Qualifiers: Qualified Codes: E11.9 - Type 2 diabetes mellitus without complications (7) Azotemia ICD Codes: R79.89 - Other specified abnormal findings of blood chemistry SNOMED: 508206071 (8) Cholelithiasis ICD Codes: K80.20 - Calculus of gallbladder without cholecystitis without obstruction SNOMED: 686190846 Status: progressing, unchanged Assessment/Plan: reviewed chart and labs azotemia no acute events niddm psych pt severe pulm htn Subjective ROS Limited/Unobtainable: Yes Allergies: Coded Allergies: No Known Allergies (Unverified , 11/08/15) Objective Last 24 Hour Vital Signs Date Time Temp Pulse Resp B/P (MAP) Pulse Ox O2 Delivery O2 Flow Rate FiO2 05/22/19 16:00 97.1 111 21 135/96 (109) 97 05/22/19 14:45 86 16 100 Nasal Cannula 2.0 28 88 16 96 05/22/19 12:00 98.7 95 20 123/86 (98) 97 05/22/19 12:00 84 05/22/19 10:27 69 16 99 Nasal Cannula 2.0 28 64 14 97 05/22/19 09:00 92 05/22/19 09:00 Nasal Cannula 4.0 05/22/19 08:00 97.6 109 21 130/78 (95) 95 05/22/19 06:55 79 15 100 Nasal Cannula 4.0 36 83 16 98 05/22/19 06:45 100 Nasal Cannula 4.0 36 05/22/19 04:00 86 05/22/19 04:00 98.7 93 20 139/73 (95) 96 05/22/19 03:04 78 17 100 Nasal Cannula 4.0 36 81 14 98 05/22/19 00:16 91 05/22/19 00:00 98.6 92 18 130/82 (98) 95 05/21/19 23:10 84 16 100 Nasal Cannula 4.0 36 85 16 98 05/21/19 21:00 Nasal Cannula 4.0 05/21/19 20:00 98.1 95 18 125/73 (90) 100 05/21/19 20:00 95 05/21/19 18:57 98 Nasal Cannula 2.0 28 05/21/19 18:54 84 18 100 Nasal Cannula 4.0 36 88 16 98 Intake and Output 05/21/19 05/22/19 19:00 07:00 Intake Total 1800 ml Output Total 800 ml 800 ml Balance -800 ml 1000 ml Intake Oral 800 ml IV Total 1000 ml Output Urine Total 800 ml 800 ml # Voids 2 2 # Bowel Movements 1 Laboratory Tests 05/22/19 06:05: White Blood Count 11.7H, Red Blood Count 2.73L, Hemoglobin 8.2L, Hematocrit 24.9L, Mean Corpuscular Volume 91, Mean Corpuscular Hemoglobin 30.1, Mean Corpuscular Hemoglobin Concent 33.0, Red Cell Distribution Width 19.5H, Platelet Count 377, Mean Platelet Volume 5.5L, Neutrophils (%) (Auto) 54.0, Lymphocytes (%) (Auto) 31.0, Monocytes (%) (Auto) 9.1, Eosinophils (%) (Auto) 4.5H, Basophils (%) (Auto) 1.4, Sodium Level 141, Potassium Level 4.4, Chloride Level 102, Carbon Dioxide Level 34H, Anion Gap 5, Blood Urea Nitrogen 27H, Creatinine 1.2, Estimat Glomerular Filtration Rate 44.7, Glucose Level 164H, Uric Acid 8.5H, Calcium Level 8.8, Phosphorus Level 4.1, Magnesium Level 2.0, Total Bilirubin < 0.1L, Aspartate Amino Transf (AST/SGOT) 53H, Alanine Aminotransferase (ALT/SGPT) 39, Alkaline Phosphatase 49, C-Reactive Protein, Quantitative < 0.4, Pro-B-Type Natriuretic Peptide 857H, Total Protein 6.4, Albumin 2.6L, Globulin 3.8, Albumin/Globulin Ratio 0.7L Height (Feet): 5 Height (Inches): 1.00 Weight (Pounds): 120 Cardiovascular: normal rate Respiratory/Chest: lungs clear Abdomen: soft Amelie Rios MD May 22, 2019 16:45
--- NOTE | 2019-05-22 19:25 | NUR ---
NURSE NOTES: Received patient from NEFTALI Puri, patient in stable condition, AOx2, denies pain at this time, able to make needs known to a degree, IV sites asymptomatic, intact, side rails padded fro seizure precautions, bed low&locked, side rails upx3, call light within reach, will continue to monitor and reassess
--- NOTE | 2019-05-22 19:29 | NUR ---
HAND-OFF: Report given to Juan Malone. Plan of care endorsed.
--- NOTE | 2019-05-22 19:41 | Pulmonology Progress Note ---
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 The patient has been having fevers, vomiting for two days, had c/o abdominal pain and diarrhea for two days AIRLINE HOSTESS. No rectal bleeding noted. No shortness of breath, orthopnea AIRLINE HOSTESS. No wheezing, cough or chest pain AIRLINE HOSTESS. ABG improved, Glucose improved on ISS On puree diet per SR evaluation, NC O2 2L/min Fluid overloaded on admission with significantly elevated BNP level, severe pulmonary hypertension as well as congestive heart failure with diastolic dysfunction. Significantly improved on Lasix, sildenafil 20 mg three times a day - Cardiology following No new complaints VQ scan: Intermediate probability for pulmonary embolus. CTA: No evidence of pulmonary embolus, aortic dissection or aneurysm. Primarily interstitial appearing infiltrate present within the right upper lobe. Findings presumably on the basis of pneumonia. Cystic changes noted bilaterally with predominant involvement of the right upper lobe in the area of infiltrate. These may be pre-existing or associated with the pneumonia. PAST MEDICAL HISTORY: Parkinsons Disease, focal weakness, Diabetes, Mood Disorder, Depression, Seizure History, Hyperlipidemia, Constipation, Anemia PAST SURGICAL HISTORY: Tubal ligation. SOCIAL HISTORY: No history of smoking. Denies history of drug or alcohol abuse. ALLERGIES: No known allergies. MEDICATIONS: AIRLINE HOSTESS: Lipitor, bisacodyl, citalopram, Colace, ferrous sulfate, Lasix, insulin, metformin. On antibiotics per ID, HHN, O2 PRN, ISS FAMILY HISTORY: Noncontributory. REVIEW OF SYSTEMS: Negative aside from above PHYSICAL EXAMINATION: VITAL SIGNS NOTED HEENT: NCAT, moist mm. NECK: No lymphadenopathy, no masses CHEST: Reduced basal BS. CARDIOVASCULAR: Regular rate and rhythm. No murmurs or extra sounds. GASTROINTESTINAL: Soft, nontender, nondistended. No organomegaly. EXTREMITIES: Mild edema. 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 RADIO REPORTER: Priented, tremor, right arm weaker than left, no seizures, sensation intact ASSESSMENT: Sepsis, vomiting, and diarrhea Diastolic Dysfunction Severe Pulm HTN Volume overload improving with diuresis Pneumonia - possible aspiration Cystuc changes in region of pneumonia will need to be followed as out patient On modified diet H/o constipation Parkinsons Disease Previous h/o focal weakness Diabetes on ISS Anemia Mood Disorder - Depression - Psychiatry following Seizure History Hyperlipidemia PLAN: - Diurese - Sildenafil - HHN - O2 PRN - wean as possible - PPX - Antibiotics per ID - AIRLINE HOSTESS Medications - Lantus/ISS d - BiPAP PRN and QHS - ST evaluation of swallow noted - GI following - Monitor labs/ABG PRN - Heme following for anemia - CTA DW RN/PMD EKG: LA enlargement CXR: No acute disease initially, currently: extensive bilateral interstitial and airspace disease, likely pneumonia although edema also possibility. Suspect small left and possible trace right pleural effusions KUB: Normal LE Dupplex: Negative VQ scan: Intermediate probability for pulmonary embolus. CTA: No evidence of pulmonary embolus, aortic dissection or aneurysm. Primarily interstitial appearing infiltrate present within the right upper lobe. Findings presumably on the basis of pneumonia. Cystic changes noted bilaterally with predominant involvement of the right upper lobe in the area of infiltrate. These may be pre-existing or associated with the pneumonia. BC : Negative UA: Positive for UTI Subjective ROS Limited/Unobtainable: No Allergies: Coded Allergies: No Known Allergies (Unverified , 11/08/15) Objective Last 24 Hour Vital Signs Date Time Temp Pulse Resp B/P (MAP) Pulse Ox O2 Delivery O2 Flow Rate FiO2 05/22/19 19:34 91 Room Air 21 05/22/19 19:34 94 16 97 Nasal Cannula 2.0 28 91 16 91 05/22/19 16:00 97.1 111 21 135/96 (109) 97 05/22/19 16:00 87 05/22/19 14:45 86 16 100 Nasal Cannula 2.0 28 88 16 96 05/22/19 12:00 98.7 95 20 123/86 (98) 97 05/22/19 12:00 84 05/22/19 10:27 69 16 99 Nasal Cannula 2.0 28 64 14 97 05/22/19 09:00 92 05/22/19 09:00 Nasal Cannula 4.0 05/22/19 08:00 97.6 109 21 130/78 (95) 95 05/22/19 06:55 79 15 100 Nasal Cannula 4.0 36 83 16 98 05/22/19 06:45 100 Nasal Cannula 4.0 36 05/22/19 04:00 86 05/22/19 04:00 98.7 93 20 139/73 (95) 96 05/22/19 03:04 78 17 100 Nasal Cannula 4.0 36 81 14 98 05/22/19 00:16 91 05/22/19 00:00 98.6 92 18 130/82 (98) 95 05/21/19 23:10 84 16 100 Nasal Cannula 4.0 36 85 16 98 05/21/19 21:00 Nasal Cannula 4.0 05/21/19 20:00 98.1 95 18 125/73 (90) 100 05/21/19 20:00 95 Intake and Output 05/21/19 05/22/19 19:00 07:00 Intake Total 1800 ml Output Total 800 ml 800 ml Balance -800 ml 1000 ml Intake Oral 800 ml IV Total 1000 ml Output Urine Total 800 ml 800 ml # Voids 2 2 # Bowel Movements 1 Laboratory Tests 05/22/19 06:05: White Blood Count 11.7H, Red Blood Count 2.73L, Hemoglobin 8.2L, Hematocrit 24.9L, Mean Corpuscular Volume 91, Mean Corpuscular Hemoglobin 30.1, Mean Corpuscular Hemoglobin Concent 33.0, Red Cell Distribution Width 19.5H, Platelet Count 377, Mean Platelet Volume 5.5L, Neutrophils (%) (Auto) 54.0, Lymphocytes (%) (Auto) 31.0, Monocytes (%) (Auto) 9.1, Eosinophils (%) (Auto) 4.5H, Basophils (%) (Auto) 1.4, Sodium Level 141, Potassium Level 4.4, Chloride Level 102, Carbon Dioxide Level 34H, Anion Gap 5, Blood Urea Nitrogen 27H, Creatinine 1.2, Estimat Glomerular Filtration Rate 44.7, Glucose Level 164H, Uric Acid 8.5H, Calcium Level 8.8, Phosphorus Level 4.1, Magnesium Level 2.0, Total Bilirubin < 0.1L, Aspartate Amino Transf (AST/SGOT) 53H, Alanine Aminotransferase (ALT/SGPT) 39, Alkaline Phosphatase 49, C-Reactive Protein, Quantitative < 0.4, Pro-B-Type Natriuretic Peptide 857H, Total Protein 6.4, Albumin 2.6L, Globulin 3.8, Albumin/Globulin Ratio 0.7L Current Medications Medications (Trade) Dose Ordered Sig/Tenzin Route PRN Reason Start Time Stop Time Status Last Admin Dose Admin Albuterol/ Ipratropium (Albuterol/ Ipratropium) 3 ml Q4H PRN HHN Shortness of Breath 05/18/19 11:30 05/23/19 11:29 Albuterol/ Ipratropium (Albuterol/ Ipratropium) 3 ml Q4HRT HHN 05/18/19 15:00 05/23/19 14:59 05/22/19 19:33 Citalopram Hydrobromide (celeXA) 20 mg DAILY ORAL 05/14/19 15:30 06/13/19 15:29 05/22/19 09:24 Dextrose (Dextrose 50%) 25 ml Q30M PRN IV Hypoglycemia 05/13/19 22:00 06/12/19 21:59 Dextrose (Dextrose 50%) 50 ml Q30M PRN IV Hypoglycemia 05/13/19 22:00 06/12/19 21:59 Docusate Sodium (Colace) 100 mg THREE TIMES A DAY ORAL 05/19/19 18:00 06/18/19 17:59 05/22/19 17:11 Furosemide (Lasix) 40 mg DAILY ORAL 05/23/19 09:00 06/22/19 08:59 Insulin Aspart (NovoLOG) BEFORE MEALS AND HS SUBQ 05/14/19 06:30 06/13/19 06:29 05/22/19 17:15 Insulin Detemir (Levemir) 10 units Q24H SUBQ 05/13/19 22:00 06/12/19 21:59 05/21/19 21:42 Nateglinide (Starlix) 60 mg TIAC ORAL 05/13/19 11:30 06/12/19 11:29 05/22/19 17:11 Ondansetron HCl (Zofran) 4 mg Q6H PRN IVP Nausea & Vomiting 05/12/19 09:45 06/11/19 09:44 05/16/19 22:04 Pantoprazole (Protonix) 40 mg BID ORAL 05/13/19 18:00 06/13/19 08:59 05/22/19 17:11 Sildenafil Citrate (Revatio) 20 mg THREE TIMES A DAY ORAL 05/17/19 13:00 06/16/19 12:59 05/22/19 17:11 Valproic Acid (Depakene) 125 mg EVERY 12 HOURS NG 05/14/19 21:00 06/13/19 20:59 05/22/19 09:24 Walker Blank MD May 22, 2019 19:41
[2019-05-22 20:00] VITALS: BP 100/71
[2019-05-22] MEDS: Levemir Flexpen SUBQ SCH (21:05)
[2019-05-23] VITALS: BP 144/76
[2019-05-23] MEDS: Albuterol/Ipratropium 3ml neb HHN SCH ×3 (02:55→11:38)
[2019-05-23 04:00] VITALS: BP 134/79
[2019-05-23] MEDS: Nateglinide 60mg tab ORAL SCH ×3 (06:11→17:45)
[2019-05-23] MEDS: NovoLOG Insulin Flexpen SUBQ SCH ×4 (06:30→21:07)
--- NOTE | 2019-05-23 07:14 | NUR ---
HAND-OFF: Report given to NEFTALI Puri patient in stable condition, plan of care endorsed.
--- NOTE | 2019-05-23 07:20 | NUR ---
HAND-OFF: Report given to NEFTALI Puri patient in stable condition, plan of care endorsed.
--- NOTE | 2019-05-23 07:46 | NUR ---
NURSE NOTES: Received patient from Juan Malone. Patient is awake lying comfortably in bed. No complain of plain or discomfort at this time. Fall/Aspiration/seizure precautions in place and will be observe throughout this shift. Will follow.
[2019-05-23 08:00] VITALS: BP 136/88
--- NOTE | 2019-05-23 08:26 | General Progress Note ---
Assessment/Plan Status: progressing, unchanged Assessment/Plan: Assessment/Plan Status: progressing, unchanged Assessment/Plan: Assessment - N/V - resolved - Sepsis - improved - lactic acidosis - improved - Renal failure - RAD - anemia Recommendations - Abx - IVF - po pureed - follow labs - Check OB -add miralax and dulcolax Subjective ROS Limited/Unobtainable: No Allergies: Coded Allergies: No Known Allergies (Unverified , 11/08/15) Objective Last 24 Hour Vital Signs Date Time Temp Pulse Resp B/P (MAP) Pulse Ox O2 Delivery O2 Flow Rate FiO2 05/23/19 08:00 97.2 86 20 136/88 (104) 96 05/23/19 07:59 84 20 99 Nasal Cannula 3.0 32 86 20 96 05/23/19 07:58 96 Nasal Cannula 3.0 32 05/23/19 04:00 97.0 93 20 134/79 (97) 99 05/23/19 04:00 86 05/23/19 02:56 86 16 100 Nasal Cannula 2.0 28 83 18 98 05/23/19 00:00 90 05/23/19 00:00 97.9 92 20 144/76 (98) 99 05/22/19 23:08 96 16 100 Nasal Cannula 2.0 28 94 18 97 05/22/19 21:00 Nasal Cannula 4.0 05/22/19 20:00 97.3 93 18 100/71 (81) 100 05/22/19 20:00 88 05/22/19 19:34 91 Room Air 21 05/22/19 19:34 94 16 97 Nasal Cannula 2.0 28 91 16 91 05/22/19 16:00 97.1 111 21 135/96 (109) 97 05/22/19 16:00 87 05/22/19 14:45 86 16 100 Nasal Cannula 2.0 28 88 16 96 05/22/19 12:00 98.7 95 20 123/86 (98) 97 05/22/19 12:00 84 05/22/19 10:27 69 16 99 Nasal Cannula 2.0 28 64 14 97 05/22/19 09:00 92 05/22/19 09:00 Nasal Cannula 4.0 Intake and Output 05/22/19 05/23/19 19:00 07:00 Intake Total 1200 ml Balance 1200 ml Intake Oral 1200 ml # Voids 3 Laboratory Tests 05/23/19 06:53: White Blood Count [Pending], Red Blood Count [Pending], Hemoglobin [Pending], Hematocrit [Pending], Mean Corpuscular Volume [Pending], Mean Corpuscular Hemoglobin [Pending], Mean Corpuscular Hemoglobin Concent [Pending], Red Cell Distribution Width [Pending], Platelet Count [Pending], Mean Platelet Volume [ Pending], Neutrophils (%) (Auto) [Pending], Lymphocytes (%) (Auto) [Pending], Monocytes (%) (Auto) [Pending], Eosinophils (%) (Auto) [Pending], Basophils (%) (Auto) [Pending], Sodium Level [Pending], Potassium Level [Pending], Chloride Level [Pending], Carbon Dioxide Level [Pending], Blood Urea Nitrogen [Pending], Creatinine [Pending], Estimat Glomerular Filtration Rate [Pending], Glucose Level [Pending], Calcium Level [Pending] Height (Feet): 5 Height (Inches): 1.00 Weight (Pounds): 120 General Appearance: no apparent distress EENT: normal ENT inspection Neck: normal alignment Cardiovascular: normal rate Respiratory/Chest: decreased breath sounds Abdomen: normal bowel sounds, non tender, soft Extremities: non-tender Isaias Tamez MD May 23, 2019 08:26
[2019-05-23 08:35] LABS: HEMATOCRIT 23.5 % (37.0-47.0); HEMOGLOBIN 7.7 G/DL (12.0-16.0); MEAN CORPUSCULAR VOLUME 92 FL (80-99); PLATELET COUNT 365 K/UL (150-450); RED BLOOD COUNT 2.56 M/UL (4.20-5.40); RED CELL DISTRIBUTION WIDTH 19.4 % (11.6-14.8); WHITE BLOOD COUNT 10.4 K/UL (4.8-10.8)
[2019-05-23 08:43] LABS: ANION GAP 4 mmol/L (5-15); BLOOD UREA NITROGEN 28 mg/dL (7-18); CALCIUM 9.3 MG/DL (8.5-10.1); CARBON DIOXIDE 36 MMOL/L (21-32); CHLORIDE 103 MMOL/L (98-107); CREATININE 1.1 MG/DL (0.55-1.30); POTASSIUM 3.7 MMOL/L (3.5-5.1); SODIUM 143 MMOL/L (136-145)
[2019-05-23] MEDS: Docusate 100mg/10ml Liq ORAL SCH ×3 (08:48→17:45)
[2019-05-23] MEDS: Furosemide 40mg tab ORAL SCH (08:48)
[2019-05-23] MEDS: Valproic Acid 250mg/5ml Liquid NG SCH ×2 (08:48→21:05)
[2019-05-23] MEDS: Revatio 20mg tab ORAL SCH ×3 (08:48→17:45)
[2019-05-23] MEDS: Citalopram Hydrobromide 10mg Tab ORAL SCH (08:49)
--- NOTE | 2019-05-23 11:02 | Infectious Diseases Prog Note ---
Assessment/Plan Assessment/Plan IMPRESSION: Pneumonia treated Leukocytosis, resolved Acute renal failure. resolved diabetes mellitus, hypertension, COPD, anemia. Sever pulmonary hypertension RECOMMENDATION: Observe off antibiotic CT angiogram : no PE Subjective ROS Limited/Unobtainable: No Constitutional: Reports: no symptoms Respiratory: Reports: no symptoms Cardiovascular: Reports: no symptoms Gastrointestinal/Abdominal: Reports: no symptoms Genitourinary: Reports: no symptoms Allergies: Coded Allergies: No Known Allergies (Unverified , 11/08/15) Objective Vital Signs Last 24 Hour Vital Signs Date Time Temp Pulse Resp B/P (MAP) Pulse Ox O2 Delivery O2 Flow Rate FiO2 05/23/19 08:00 97.2 86 20 136/88 (104) 96 05/23/19 08:00 92 05/23/19 07:59 84 20 99 Nasal Cannula 3.0 32 86 20 96 05/23/19 07:58 96 Nasal Cannula 3.0 32 05/23/19 04:00 97.0 93 20 134/79 (97) 99 05/23/19 04:00 86 05/23/19 02:56 86 16 100 Nasal Cannula 2.0 28 83 18 98 05/23/19 00:00 90 05/23/19 00:00 97.9 92 20 144/76 (98) 99 05/22/19 23:08 96 16 100 Nasal Cannula 2.0 28 94 18 97 05/22/19 21:00 Nasal Cannula 4.0 05/22/19 20:00 97.3 93 18 100/71 (81) 100 05/22/19 20:00 88 05/22/19 19:34 91 Room Air 21 05/22/19 19:34 94 16 97 Nasal Cannula 2.0 28 91 16 91 05/22/19 16:00 97.1 111 21 135/96 (109) 97 05/22/19 16:00 87 05/22/19 14:45 86 16 100 Nasal Cannula 2.0 28 88 16 96 05/22/19 12:00 98.7 95 20 123/86 (98) 97 05/22/19 12:00 84 Height (Feet): 5 Height (Inches): 1.00 Weight (Pounds): 120 General Appearance: no acute distress HEENT: mucous membranes moist Respiratory/Chest: lungs clear, other - oxygen by nasal cannula Cardiovascular: normal rate Abdomen: soft, non tender Extremities: no edema Neurologic/Psychiatric: alert, responsive Laboratory Tests Test 05/23/19 06:53 White Blood Count 10.4 K/UL (4.8-10.8) Red Blood Count 2.56 M/UL (4.20-5.40) L Hemoglobin 7.7 G/DL (12.0-16.0) L Hematocrit 23.5 % (37.0-47.0) L Mean Corpuscular Volume 92 FL (80-99) Mean Corpuscular Hemoglobin 30.0 PG (27.0-31.0) Mean Corpuscular Hemoglobin Concent 32.7 G/DL (32.0-36.0) Red Cell Distribution Width 19.4 % (11.6-14.8) H Platelet Count 365 K/UL (150-450) Mean Platelet Volume 5.5 FL (6.5-10.1) L Neutrophils (%) (Auto) % (45.0-75.0) Lymphocytes (%) (Auto) % (20.0-45.0) Monocytes (%) (Auto) % (1.0-10.0) Eosinophils (%) (Auto) % (0.0-3.0) Basophils (%) (Auto) % (0.0-2.0) Differential Total Cells Counted 100 Neutrophils % (Manual) 66 % (45-75) Lymphocytes % (Manual) 25 % (20-45) Monocytes % (Manual) 4 % (1-10) Eosinophils % (Manual) 5 % (0-3) H Basophils % (Manual) 0 % (0-2) Band Neutrophils 0 % (0-8) Platelet Estimate Adequate Platelet Morphology Normal Hypochromasia 1+ Anisocytosis 1+ Sodium Level 143 MMOL/L (136-145) Potassium Level 3.7 MMOL/L (3.5-5.1) Chloride Level 103 MMOL/L (98-107) Carbon Dioxide Level 36 MMOL/L (21-32) H Anion Gap 4 mmol/L (5-15) L Blood Urea Nitrogen 28 mg/dL (7-18) H Creatinine 1.1 MG/DL (0.55-1.30) Estimat Glomerular Filtration Rate 49.4 mL/min (>60) Glucose Level 136 MG/DL (74-106) H Calcium Level 9.3 MG/DL (8.5-10.1) Current Medications Medications (Trade) Dose Ordered Sig/Tenzin Route PRN Reason Start Time Stop Time Status Last Admin Dose Admin Albuterol/ Ipratropium (Albuterol/ Ipratropium) 3 ml Q4H PRN HHN Shortness of Breath 05/18/19 11:30 05/23/19 11:29 Albuterol/ Ipratropium (Albuterol/ Ipratropium) 3 ml Q4HRT HHN 05/18/19 15:00 05/23/19 14:59 05/23/19 07:00 Citalopram Hydrobromide (celeXA) 20 mg DAILY ORAL 05/14/19 15:30 06/13/19 15:29 05/23/19 08:49 Dextrose (Dextrose 50%) 25 ml Q30M PRN IV Hypoglycemia 05/13/19 22:00 06/12/19 21:59 Dextrose (Dextrose 50%) 50 ml Q30M PRN IV Hypoglycemia 05/13/19 22:00 06/12/19 21:59 Docusate Sodium (Colace) 100 mg THREE TIMES A DAY ORAL 05/19/19 18:00 06/18/19 17:59 05/23/19 08:48 Furosemide (Lasix) 40 mg DAILY ORAL 05/23/19 09:00 06/22/19 08:59 05/23/19 08:48 Insulin Aspart (NovoLOG) BEFORE MEALS AND HS SUBQ 05/14/19 06:30 06/13/19 06:29 05/22/19 21:06 Insulin Detemir (Levemir) 10 units Q24H SUBQ 05/13/19 22:00 06/12/19 21:59 05/22/19 21:05 Nateglinide (Starlix) 60 mg TIAC ORAL 05/13/19 11:30 06/12/19 11:29 05/23/19 06:11 Ondansetron HCl (Zofran) 4 mg Q6H PRN IVP Nausea & Vomiting 05/12/19 09:45 06/11/19 09:44 05/16/19 22:04 Pantoprazole (Protonix) 40 mg BID ORAL 05/13/19 18:00 06/13/19 08:59 05/23/19 08:49 Polyethylene Glycol (Miralax) 17 gm BEDTIME ORAL 05/23/19 21:00 06/22/19 20:59 Sildenafil Citrate (Revatio) 20 mg THREE TIMES A DAY ORAL 05/17/19 13:00 06/16/19 12:59 05/23/19 08:48 Valproic Acid (Depakene) 125 mg EVERY 12 HOURS NG 05/14/19 21:00 06/13/19 20:59 05/23/19 08:48 Rogelio Martinez MD May 23, 2019 11:02
[2019-05-23 12:00] VITALS: BP 120/60
--- NOTE | 2019-05-23 12:42 | Nephrology Progress Note ---
Assessment/Plan Problem List: (1) Azotemia (2) Type 2 diabetes mellitus (3) COPD exacerbation (4) Elevated lactic acid level (5) Pulmonary hypertension Assessment: severe Assessment Renal failure COPD Acute- dehydration , ? CKD underlying UTI , High Lactic HyperKalemia DM Anemia DNR Plan correct mag and K and Phos- On Lasix IV and Sildenafil now ABG noted 2D echo noted- Pulm HTN DC Hydrate- Pulm toilet Anemia castro PO protonix Monitor renal parameters Subjective ROS Limited/Unobtainable: No Constitutional: Reports: malaise Objective Objective Last 24 Hour Vital Signs Date Time Temp Pulse Resp B/P (MAP) Pulse Ox O2 Delivery O2 Flow Rate FiO2 05/23/19 12:00 98.1 88 17 120/60 (80) 94 05/23/19 11:31 72 20 98 Nasal Cannula 2.0 28 71 20 94 05/23/19 09:00 Nasal Cannula 4.0 05/23/19 08:00 97.2 86 20 136/88 (104) 96 05/23/19 08:00 92 05/23/19 07:59 84 20 99 Nasal Cannula 3.0 32 86 20 96 05/23/19 07:58 96 Nasal Cannula 3.0 32 05/23/19 04:00 97.0 93 20 134/79 (97) 99 05/23/19 04:00 86 05/23/19 02:56 86 16 100 Nasal Cannula 2.0 28 83 18 98 05/23/19 00:00 90 05/23/19 00:00 97.9 92 20 144/76 (98) 99 05/22/19 23:08 96 16 100 Nasal Cannula 2.0 28 94 18 97 05/22/19 21:00 Nasal Cannula 4.0 05/22/19 20:00 97.3 93 18 100/71 (81) 100 05/22/19 20:00 88 05/22/19 19:34 91 Room Air 21 05/22/19 19:34 94 16 97 Nasal Cannula 2.0 28 91 16 91 05/22/19 16:00 97.1 111 21 135/96 (109) 97 05/22/19 16:00 87 05/22/19 14:45 86 16 100 Nasal Cannula 2.0 28 88 16 96 Intake and Output 05/22/19 05/23/19 19:00 07:00 Intake Total 1200 ml Balance 1200 ml Intake Oral 1200 ml # Voids 3 Current Medications Medications (Trade) Dose Ordered Sig/Tenzin Route PRN Reason Start Time Stop Time Status Last Admin Dose Admin Albuterol/ Ipratropium (Albuterol/ Ipratropium) 3 ml Q4HRT HHN 05/18/19 15:00 05/23/19 14:59 05/23/19 11:38 Citalopram Hydrobromide (celeXA) 20 mg DAILY ORAL 05/14/19 15:30 06/13/19 15:29 05/23/19 08:49 Dextrose (Dextrose 50%) 25 ml Q30M PRN IV Hypoglycemia 05/13/19 22:00 06/12/19 21:59 Dextrose (Dextrose 50%) 50 ml Q30M PRN IV Hypoglycemia 05/13/19 22:00 06/12/19 21:59 Docusate Sodium (Colace) 100 mg THREE TIMES A DAY ORAL 05/19/19 18:00 06/18/19 17:59 05/23/19 12:31 Furosemide (Lasix) 40 mg DAILY ORAL 05/23/19 09:00 06/22/19 08:59 05/23/19 08:48 Insulin Aspart (NovoLOG) BEFORE MEALS AND HS SUBQ 05/14/19 06:30 06/13/19 06:29 05/23/19 12:28 Insulin Detemir (Levemir) 10 units Q24H SUBQ 05/13/19 22:00 06/12/19 21:59 05/22/19 21:05 Nateglinide (Starlix) 60 mg TIAC ORAL 05/13/19 11:30 06/12/19 11:29 05/23/19 12:31 Ondansetron HCl (Zofran) 4 mg Q6H PRN IVP Nausea & Vomiting 05/12/19 09:45 06/11/19 09:44 05/16/19 22:04 Pantoprazole (Protonix) 40 mg BID ORAL 05/13/19 18:00 06/13/19 08:59 05/23/19 08:49 Polyethylene Glycol (Miralax) 17 gm BEDTIME ORAL 05/23/19 21:00 06/22/19 20:59 Sildenafil Citrate (Revatio) 20 mg THREE TIMES A DAY ORAL 05/17/19 13:00 06/16/19 12:59 05/23/19 12:31 Valproic Acid (Depakene) 125 mg EVERY 12 HOURS NG 05/14/19 21:00 06/13/19 20:59 05/23/19 08:48 Laboratory Tests 05/23/19 06:53: White Blood Count 10.4, Red Blood Count 2.56L, Hemoglobin 7.7L, Hematocrit 23.5L , Mean Corpuscular Volume 92, Mean Corpuscular Hemoglobin 30.0, Mean Corpuscular Hemoglobin Concent 32.7, Red Cell Distribution Width 19.4H, Platelet Count 365, Mean Platelet Volume 5.5L, Neutrophils (%) (Auto) , Lymphocytes (%) (Auto) , Monocytes (%) (Auto) , Eosinophils (%) (Auto) , Basophils (%) (Auto) , Differential Total Cells Counted 100, Neutrophils % ( Manual) 66, Lymphocytes % (Manual) 25, Monocytes % (Manual) 4, Eosinophils % ( Manual) 5H, Basophils % (Manual) 0, Band Neutrophils 0, Platelet Estimate Adequate, Platelet Morphology Normal, Hypochromasia 1+, Anisocytosis 1+, Sodium Level 143, Potassium Level 3.7, Chloride Level 103, Carbon Dioxide Level 36H, Anion Gap 4L, Blood Urea Nitrogen 28H, Creatinine 1.1, Estimat Glomerular Filtration Rate 49.4, Glucose Level 136H, Calcium Level 9.3 Height (Feet): 5 Height (Inches): 1.00 Weight (Pounds): 120 General Appearance: no apparent distress Cardiovascular: normal rate Respiratory/Chest: decreased breath sounds Abdomen: soft Objective no change José Miguel Calvert MD May 23, 2019 12:42
--- NOTE | 2019-05-23 13:13 | General Progress Note ---
Assessment/Plan Problem List: (1) Constipation ICD Codes: K59.00 - Constipation, unspecified SNOMED: 79626153 (2) Renal insufficiency ICD Codes: N28.9 - Disorder of kidney and ureter, unspecified SNOMED: 325484885, 048250900 (3) COPD exacerbation ICD Codes: J44.1 - Chronic obstructive pulmonary disease with (acute) exacerbation SNOMED: 222998495 (4) UTI (urinary tract infection) ICD Codes: N39.0 - Urinary tract infection, site not specified SNOMED: 59027902 Qualifiers: Qualified Codes: N39.0 - Urinary tract infection, site not specified (5) Hyperlipidemia associated with type 2 diabetes mellitus ICD Codes: E11.69 - Type 2 diabetes mellitus with other specified complication ; E78.5 - Hyperlipidemia, unspecified SNOMED: 308818809, 119583720811 (6) Type 2 diabetes mellitus ICD Codes: E11.9 - Type 2 diabetes mellitus without complications SNOMED: 25185020, 468613262 Qualifiers: Qualified Codes: E11.9 - Type 2 diabetes mellitus without complications (7) Azotemia ICD Codes: R79.89 - Other specified abnormal findings of blood chemistry SNOMED: 972676599 (8) Cholelithiasis ICD Codes: K80.20 - Calculus of gallbladder without cholecystitis without obstruction SNOMED: 832269488 Status: progressing, unchanged Assessment/Plan: consitipation azotemia niddm psych pt severe pulm htn no sob uti improving reviewed chart and labs Subjective ROS Limited/Unobtainable: Yes Allergies: Coded Allergies: No Known Allergies (Unverified , 11/08/15) Objective Last 24 Hour Vital Signs Date Time Temp Pulse Resp B/P (MAP) Pulse Ox O2 Delivery O2 Flow Rate FiO2 05/23/19 12:00 98.1 88 17 120/60 (80) 94 05/23/19 11:31 72 20 98 Nasal Cannula 2.0 28 71 20 94 05/23/19 09:00 Nasal Cannula 4.0 05/23/19 08:00 97.2 86 20 136/88 (104) 96 05/23/19 08:00 92 05/23/19 07:59 84 20 99 Nasal Cannula 3.0 32 86 20 96 05/23/19 07:58 96 Nasal Cannula 3.0 32 05/23/19 04:00 97.0 93 20 134/79 (97) 99 05/23/19 04:00 86 05/23/19 02:56 86 16 100 Nasal Cannula 2.0 28 83 18 98 05/23/19 00:00 90 05/23/19 00:00 97.9 92 20 144/76 (98) 99 05/22/19 23:08 96 16 100 Nasal Cannula 2.0 28 94 18 97 05/22/19 21:00 Nasal Cannula 4.0 05/22/19 20:00 97.3 93 18 100/71 (81) 100 05/22/19 20:00 88 05/22/19 19:34 91 Room Air 21 05/22/19 19:34 94 16 97 Nasal Cannula 2.0 28 91 16 91 05/22/19 16:00 97.1 111 21 135/96 (109) 97 05/22/19 16:00 87 05/22/19 14:45 86 16 100 Nasal Cannula 2.0 28 88 16 96 Intake and Output 05/22/19 05/23/19 19:00 07:00 Intake Total 1200 ml Balance 1200 ml Intake Oral 1200 ml # Voids 3 Laboratory Tests 05/23/19 06:53: White Blood Count 10.4, Red Blood Count 2.56L, Hemoglobin 7.7L, Hematocrit 23.5L , Mean Corpuscular Volume 92, Mean Corpuscular Hemoglobin 30.0, Mean Corpuscular Hemoglobin Concent 32.7, Red Cell Distribution Width 19.4H, Platelet Count 365, Mean Platelet Volume 5.5L, Neutrophils (%) (Auto) , Lymphocytes (%) (Auto) , Monocytes (%) (Auto) , Eosinophils (%) (Auto) , Basophils (%) (Auto) , Differential Total Cells Counted 100, Neutrophils % ( Manual) 66, Lymphocytes % (Manual) 25, Monocytes % (Manual) 4, Eosinophils % ( Manual) 5H, Basophils % (Manual) 0, Band Neutrophils 0, Platelet Estimate Adequate, Platelet Morphology Normal, Hypochromasia 1+, Anisocytosis 1+, Sodium Level 143, Potassium Level 3.7, Chloride Level 103, Carbon Dioxide Level 36H, Anion Gap 4L, Blood Urea Nitrogen 28H, Creatinine 1.1, Estimat Glomerular Filtration Rate 49.4, Glucose Level 136H, Calcium Level 9.3 Height (Feet): 5 Height (Inches): 1.00 Weight (Pounds): 120 Neck: supple Cardiovascular: normal rate Respiratory/Chest: lungs clear Abdomen: soft Amelie Rios MD May 23, 2019 13:13
--- NOTE | 2019-05-23 13:59 | Hematology/Onc Progress Note ---
Assessment/Plan Assessment/Plan Assessment and Recs: # Anemia of iron deficiency -- hgb remains low, anemia panel reviewed, ferritin is 20 --> start on iv iron x 5 days --> cea is 4.9 --> no hemolysis is seen --> r/o gi bleed, gi is on board --> blood tx: 1 unit on 05/15, --> hgb was 8.1-->8->9.5-->8.4 # Leukocytosis with Sepsis likely due to uti --> has now improved --> levaquin started-->zosyn-->now off # Ryan on admission --> per renal on ivf # Elevated lactic acid level --> sp abx lecquin # Type 2 diabetes mellitus --> acucchecks qac and qhs --> iss, consider endo # Stage I decubitus ulcer sacrum # Dvt ppx scds --> cta negative for pe Appreciate consultation and michael Rn Subjective Allergies: Coded Allergies: No Known Allergies (Unverified , 11/08/15) Subjective 2: awake and alert, v mask, s/p blood, on iv iron 2: no bleeding or chills noted, hgb remains stable, at hgb 8 05/18: remains on celexa, no bleeding, no chills, cbc reordered, no rxn to iv iron 05/19: is getting ct of the chest with angio, no bleeding or chills 05/20: on 4l nc is pending cta, no bleeding, no night sweats 05/21: no acute events, cta negative for pe, off abx 05/23: no acute distress, nc, hgb 7.7, repeat cbc tomorrow Objective Objective Current Medications Medications (Trade) Dose Ordered Sig/Tenzin Route PRN Reason Start Time Stop Time Status Last Admin Dose Admin Albuterol/ Ipratropium (Albuterol/ Ipratropium) 3 ml Q4HRT HHN 05/18/19 15:00 05/23/19 14:59 05/23/19 11:38 Citalopram Hydrobromide (celeXA) 20 mg DAILY ORAL 05/14/19 15:30 06/13/19 15:29 05/23/19 08:49 Dextrose (Dextrose 50%) 25 ml Q30M PRN IV Hypoglycemia 05/13/19 22:00 06/12/19 21:59 Dextrose (Dextrose 50%) 50 ml Q30M PRN IV Hypoglycemia 05/13/19 22:00 06/12/19 21:59 Docusate Sodium (Colace) 100 mg THREE TIMES A DAY ORAL 05/19/19 18:00 06/18/19 17:59 05/23/19 12:31 Furosemide (Lasix) 40 mg DAILY ORAL 05/23/19 09:00 06/22/19 08:59 05/23/19 08:48 Insulin Aspart (NovoLOG) BEFORE MEALS AND HS SUBQ 05/14/19 06:30 06/13/19 06:29 05/23/19 12:28 Insulin Detemir (Levemir) 10 units Q24H SUBQ 05/13/19 22:00 06/12/19 21:59 05/22/19 21:05 Nateglinide (Starlix) 60 mg TIAC ORAL 05/13/19 11:30 06/12/19 11:29 05/23/19 12:31 Ondansetron HCl (Zofran) 4 mg Q6H PRN IVP Nausea & Vomiting 05/12/19 09:45 06/11/19 09:44 05/16/19 22:04 Pantoprazole (Protonix) 40 mg BID ORAL 05/13/19 18:00 06/13/19 08:59 05/23/19 08:49 Polyethylene Glycol (Miralax) 17 gm BEDTIME ORAL 05/23/19 21:00 06/22/19 20:59 Sildenafil Citrate (Revatio) 20 mg THREE TIMES A DAY ORAL 05/17/19 13:00 06/16/19 12:59 05/23/19 12:31 Valproic Acid (Depakene) 125 mg EVERY 12 HOURS NG 05/14/19 21:00 06/13/19 20:59 05/23/19 08:48 Last 24 Hour Vital Signs Date Time Temp Pulse Resp B/P (MAP) Pulse Ox O2 Delivery O2 Flow Rate FiO2 05/23/19 12:00 98.1 88 17 120/60 (80) 94 05/23/19 12:00 85 05/23/19 11:31 72 20 98 Nasal Cannula 2.0 28 71 20 94 05/23/19 09:00 Nasal Cannula 4.0 05/23/19 08:00 97.2 86 20 136/88 (104) 96 05/23/19 08:00 92 05/23/19 07:59 84 20 99 Nasal Cannula 3.0 32 86 20 96 05/23/19 07:58 96 Nasal Cannula 3.0 32 05/23/19 04:00 97.0 93 20 134/79 (97) 99 05/23/19 04:00 86 05/23/19 02:56 86 16 100 Nasal Cannula 2.0 28 83 18 98 05/23/19 00:00 90 05/23/19 00:00 97.9 92 20 144/76 (98) 99 05/22/19 23:08 96 16 100 Nasal Cannula 2.0 28 94 18 97 05/22/19 21:00 Nasal Cannula 4.0 05/22/19 20:00 97.3 93 18 100/71 (81) 100 05/22/19 20:00 88 05/22/19 19:34 91 Room Air 21 05/22/19 19:34 94 16 97 Nasal Cannula 2.0 28 91 16 91 05/22/19 16:00 97.1 111 21 135/96 (109) 97 05/22/19 16:00 87 05/22/19 14:45 86 16 100 Nasal Cannula 2.0 28 88 16 96 05/22/19 12:00 98.7 95 20 123/86 (98) 97 05/22/19 12:00 84 05/22/19 10:27 69 16 99 Nasal Cannula 2.0 28 64 14 97 05/22/19 09:00 92 05/22/19 09:00 Nasal Cannula 4.0 05/22/19 08:00 97.6 109 21 130/78 (95) 95 05/22/19 06:55 79 15 100 Nasal Cannula 4.0 36 83 16 98 05/22/19 06:45 100 Nasal Cannula 4.0 36 05/22/19 04:00 86 05/22/19 04:00 98.7 93 20 139/73 (95) 96 05/22/19 03:04 78 17 100 Nasal Cannula 4.0 36 81 14 98 05/22/19 00:16 91 05/22/19 00:00 98.6 92 18 130/82 (98) 95 2/7/20 23:10 84 16 100 Nasal Cannula 4.0 36 85 16 98 05/21/19 21:00 Nasal Cannula 4.0 05/21/19 20:00 98.1 95 18 125/73 (90) 100 05/21/19 20:00 95 05/21/19 18:57 98 Nasal Cannula 2.0 28 05/21/19 18:54 84 18 100 Nasal Cannula 4.0 36 88 16 98 05/21/19 16:00 84 05/21/19 16:00 98.7 61 19 109/68 (82) 100 Intake and Output 05/22/19 05/23/19 19:00 07:00 Intake Total 1200 ml Balance 1200 ml Intake Oral 1200 ml # Voids 3 Labs Test 05/21/19 05:45 05/22/19 06:05 05/23/19 06:53 White Blood Count 10.5 K/UL (4.8-10.8) 11.7 K/UL (4.8-10.8) 10.4 K/UL (4.8-10.8) Red Blood Count 2.83 M/UL (4.20-5.40) 2.73 M/UL (4.20-5.40) 2.56 M/UL (4.20-5.40) Hemoglobin 8.4 G/DL (12.0-16.0) 8.2 G/DL (12.0-16.0) 7.7 G/DL (12.0-16.0) Hematocrit 25.3 % (37.0-47.0) 24.9 % (37.0-47.0) 23.5 % (37.0-47.0) Mean Corpuscular Volume 89 FL (80-99) 91 FL (80-99) 92 FL (80-99) Mean Corpuscular Hemoglobin 29.6 PG (27.0-31.0) 30.1 PG (27.0-31.0) 30.0 PG (27.0-31.0) Mean Corpuscular Hemoglobin Concent 33.2 G/DL (32.0-36.0) 33.0 G/DL (32.0-36.0) 32.7 G/DL (32.0-36.0) Red Cell Distribution Width 18.6 % (11.6-14.8) 19.5 % (11.6-14.8) 19.4 % (11.6-14.8) Platelet Count 346 K/UL (150-450) 377 K/UL (150-450) 365 K/UL (150-450) Mean Platelet Volume 5.2 FL (6.5-10.1) 5.5 FL (6.5-10.1) 5.5 FL (6.5-10.1) Neutrophils (%) (Auto) 49.6 % (45.0-75.0) 54.0 % (45.0-75.0) % (45.0-75.0) Lymphocytes (%) (Auto) 33.7 % (20.0-45.0) 31.0 % (20.0-45.0) % (20.0-45.0) Monocytes (%) (Auto) 11.5 % (1.0-10.0) 9.1 % (1.0-10.0) % (1.0-10.0) Eosinophils (%) (Auto) 4.2 % (0.0-3.0) 4.5 % (0.0-3.0) % (0.0-3.0) Basophils (%) (Auto) 1.1 % (0.0-2.0) 1.4 % (0.0-2.0) % (0.0-2.0) Sodium Level 140 MMOL/L (136-145) 141 MMOL/L (136-145) 143 MMOL/L (136-145) Potassium Level 4.0 MMOL/L (3.5-5.1) 4.4 MMOL/L (3.5-5.1) 3.7 MMOL/L (3.5-5.1) Chloride Level 100 MMOL/L (98-107) 102 MMOL/L (98-107) 103 MMOL/L (98-107) Carbon Dioxide Level 35 MMOL/L (21-32) 34 MMOL/L (21-32) 36 MMOL/L (21-32) Anion Gap 5 mmol/L (5-15) 5 mmol/L (5-15) 4 mmol/L (5-15) Blood Urea Nitrogen 28 mg/dL (7-18) 27 mg/dL (7-18) 28 mg/dL (7-18) Creatinine 1.5 MG/DL (0.55-1.30) 1.2 MG/DL (0.55-1.30) 1.1 MG/DL (0.55-1.30) Estimat Glomerular Filtration Rate 34.5 mL/min (>60) 44.7 mL/min (>60) 49.4 mL/min (>60) Glucose Level 139 MG/DL (74-106) 164 MG/DL (74-106) 136 MG/DL (74-106) Uric Acid 7.4 MG/DL (2.6-7.2) 8.5 MG/DL (2.6-7.2) Calcium Level 8.6 MG/DL (8.5-10.1) 8.8 MG/DL (8.5-10.1) 9.3 MG/DL (8.5-10.1) Phosphorus Level 3.8 MG/DL (2.5-4.9) 4.1 MG/DL (2.5-4.9) Magnesium Level 2.2 MG/DL (1.8-2.4) 2.0 MG/DL (1.8-2.4) Total Bilirubin 0.2 MG/DL (0.2-1.0) < 0.1 MG/DL (0.2-1.0) Aspartate Amino Transf (AST/SGOT) 49 U/L (15-37) 53 U/L (15-37) Alanine Aminotransferase (ALT/SGPT) 37 U/L (12-78) 39 U/L (12-78) Alkaline Phosphatase 51 U/L (46-116) 49 U/L (46-116) C-Reactive Protein, Quantitative < 0.4 mg/dL (0.00-0.90) < 0.4 mg/dL (0.00-0.90) Pro-B-Type Natriuretic Peptide 1050 pg/mL (0-125) 857 pg/mL (0-125) Total Protein 6.6 G/DL (6.4-8.2) 6.4 G/DL (6.4-8.2) Albumin 2.4 G/DL (3.4-5.0) 2.6 G/DL (3.4-5.0) Globulin 4.2 g/dL 3.8 g/dL Albumin/Globulin Ratio 0.6 (1.0-2.7) 0.7 (1.0-2.7) Differential Total Cells Counted 100 Neutrophils % (Manual) 66 % (45-75) Lymphocytes % (Manual) 25 % (20-45) Monocytes % (Manual) 4 % (1-10) Eosinophils % (Manual) 5 % (0-3) Basophils % (Manual) 0 % (0-2) Band Neutrophils 0 % (0-8) Platelet Estimate Adequate Platelet Morphology Normal Hypochromasia 1+ Anisocytosis 1+ Height (Feet): 5 Height (Inches): 1.00 Weight (Pounds): 120 Objective Physical Exam Vitals: reviewed General: alert, non-toxic, thin, other - Frail, Chronically Ill Head: normocephalic, atraumatic Heent: bilateral eye normal inspection, bilateral eye PERRl Respiratory: lungs clear, normal breath sounds, V mask++ Cardiovascular: regular rate, rhythm, no edema Gi: non tender, soft, decreased bowel sounds Gu: no CVA tenderness Msk: no calf tenderness, + Atrophy Neuro: alert, sensory intact, w motor weakness Psychiatric: mood/affect normal Skin: ++ Danie Jackson MD May 23, 2019 13:59
[2019-05-23 16:00] VITALS: BP 132/74
--- NOTE | 2019-05-23 19:13 | NUR ---
HAND-OFF: Report given to Juan Malone. Plan of care endorsed.
[2019-05-23 20:00] VITALS: BP 109/56
--- NOTE | 2019-05-23 20:47 | Pulmonology Progress Note ---
Assessment/Plan Assessment/Plan Pulmonary Progress Note HPI: The patient is a 68 year old woman, Group Home resident with past medical history of Parkinsons Disease, focal weakness, Diabetes, Mood Disorder, Seizure History, Hyperlipidemia, Constipation admitted with UTI/sepsis, noted to be hypotensive on admission, have significantly elevated Lactic Acid Levels, Positive Urine Ketones, Acute Renal Insufficiency, Anemia. The patient has been having fevers, vomiting for two days, had c/o abdominal pain and diarrhea for two days ACCESS TECH. No rectal bleeding noted. No shortness of breath, orthopnea ACCESS TECH. No wheezing, cough or chest pain ACCESS TECH. ABG improved, Glucose improved on ISS On puree diet per SR evaluation, NC O2 2L/min Fluid overloaded on admission with significantly elevated BNP level, severe pulmonary hypertension as well as congestive heart failure with diastolic dysfunction. Significantly improved on Lasix, sildenafil 20 mg three times a day - Cardiology following No new complaints VQ scan: Intermediate probability for pulmonary embolus. CTA: No evidence of pulmonary embolus, aortic dissection or aneurysm. Primarily interstitial appearing infiltrate present within the right upper lobe. Findings presumably on the basis of pneumonia. Cystic changes noted bilaterally with predominant involvement of the right upper lobe in the area of infiltrate. These may be pre-existing or associated with the pneumonia. PAST MEDICAL HISTORY: Parkinsons Disease, focal weakness, Diabetes, Mood Disorder, Depression, Seizure History, Hyperlipidemia, Constipation, Anemia PAST SURGICAL HISTORY: Tubal ligation. SOCIAL HISTORY: No history of smoking. Denies history of drug or alcohol abuse. ALLERGIES: No known allergies. MEDICATIONS: ACCESS TECH: Lipitor, bisacodyl, citalopram, Colace, ferrous sulfate, Lasix, insulin, metformin. On antibiotics per ID, HHN, O2 PRN, ISS FAMILY HISTORY: Noncontributory. REVIEW OF SYSTEMS: Negative aside from above PHYSICAL EXAMINATION: VITAL SIGNS NOTED HEENT: NCAT, moist mm. NECK: No lymphadenopathy, no masses CHEST: Reduced basal BS. CARDIOVASCULAR: Regular rate and rhythm. No murmurs or extra sounds. GASTROINTESTINAL: Soft, nontender, nondistended. No organomegaly. EXTREMITIES: Mild edema. 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 [employer]: Priented, tremor, right arm weaker than left, no seizures, sensation intact ASSESSMENT: Sepsis, vomiting, and diarrhea Diastolic Dysfunction Severe Pulm HTN Volume overload improving with diuresis Pneumonia - possible aspiration Cystuc changes in region of pneumonia will need to be followed as out patient On modified diet H/o constipation Parkinsons Disease Previous h/o focal weakness Diabetes on ISS Anemia Mood Disorder - Depression - Psychiatry following Seizure History Hyperlipidemia PLAN: - Diurese - Sildenafil - HHN - O2 PRN - wean as possible - currently 2L/min - PPX - Antibiotics per ID - ACCESS TECH Medications - Lantus/ISS d - BiPAP PRN and QHS - ST evaluation of swallow noted - GI following - Monitor labs/ABG PRN - Heme following for anemia - CTA DW RN/PMD EKG: LA enlargement CXR: No acute disease initially, currently: extensive bilateral interstitial and airspace disease, likely pneumonia although edema also possibility. Suspect small left and possible trace right pleural effusions KUB: Normal LE Dupplex: Negative VQ scan: Intermediate probability for pulmonary embolus. CTA: No evidence of pulmonary embolus, aortic dissection or aneurysm. Primarily interstitial appearing infiltrate present within the right upper lobe. Findings presumably on the basis of pneumonia. Cystic changes noted bilaterally with predominant involvement of the right upper lobe in the area of infiltrate. These may be pre-existing or associated with the pneumonia. BC : Negative UA: Positive for UTI Subjective ROS Limited/Unobtainable: No Allergies: Coded Allergies: No Known Allergies (Unverified , 11/08/15) Objective Last 24 Hour Vital Signs Date Time Temp Pulse Resp B/P (MAP) Pulse Ox O2 Delivery O2 Flow Rate FiO2 05/23/19 16:00 63 05/23/19 16:00 98.2 89 18 132/74 (93) 98 05/23/19 15:28 Nasal Cannula 4.0 05/23/19 12:00 98.1 88 17 120/60 (80) 94 05/23/19 12:00 85 05/23/19 11:31 72 20 98 Nasal Cannula 2.0 28 71 20 94 05/23/19 09:00 Nasal Cannula 4.0 05/23/19 08:00 97.2 86 20 136/88 (104) 96 05/23/19 08:00 92 05/23/19 07:59 84 20 99 Nasal Cannula 3.0 32 86 20 96 05/23/19 07:58 96 Nasal Cannula 3.0 32 05/23/19 04:00 97.0 93 20 134/79 (97) 99 05/23/19 04:00 86 05/23/19 02:56 86 16 100 Nasal Cannula 2.0 28 83 18 98 05/23/19 00:00 90 05/23/19 00:00 97.9 92 20 144/76 (98) 99 05/22/19 23:08 96 16 100 Nasal Cannula 2.0 28 94 18 97 05/22/19 21:00 Nasal Cannula 4.0 Intake and Output 05/22/19 05/23/19 19:00 07:00 Intake Total 1200 ml Balance 1200 ml Intake Oral 1200 ml # Voids 3 Laboratory Tests 05/23/19 06:53: White Blood Count 10.4, Red Blood Count 2.56L, Hemoglobin 7.7L, Hematocrit 23.5L , Mean Corpuscular Volume 92, Mean Corpuscular Hemoglobin 30.0, Mean Corpuscular Hemoglobin Concent 32.7, Red Cell Distribution Width 19.4H, Platelet Count 365, Mean Platelet Volume 5.5L, Neutrophils (%) (Auto) , Lymphocytes (%) (Auto) , Monocytes (%) (Auto) , Eosinophils (%) (Auto) , Basophils (%) (Auto) , Differential Total Cells Counted 100, Neutrophils % ( Manual) 66, Lymphocytes % (Manual) 25, Monocytes % (Manual) 4, Eosinophils % ( Manual) 5H, Basophils % (Manual) 0, Band Neutrophils 0, Platelet Estimate Adequate, Platelet Morphology Normal, Hypochromasia 1+, Anisocytosis 1+, Sodium Level 143, Potassium Level 3.7, Chloride Level 103, Carbon Dioxide Level 36H, Anion Gap 4L, Blood Urea Nitrogen 28H, Creatinine 1.1, Estimat Glomerular Filtration Rate 49.4, Glucose Level 136H, Calcium Level 9.3 Current Medications Medications (Trade) Dose Ordered Sig/Tenzin Route PRN Reason Start Time Stop Time Status Last Admin Dose Admin Citalopram Hydrobromide (celeXA) 20 mg DAILY ORAL 05/14/19 15:30 06/13/19 15:29 05/23/19 08:49 Dextrose (Dextrose 50%) 25 ml Q30M PRN IV Hypoglycemia 05/13/19 22:00 06/12/19 21:59 Dextrose (Dextrose 50%) 50 ml Q30M PRN IV Hypoglycemia 05/13/19 22:00 06/12/19 21:59 Docusate Sodium (Colace) 100 mg THREE TIMES A DAY ORAL 05/19/19 18:00 06/18/19 17:59 05/23/19 17:45 Furosemide (Lasix) 40 mg DAILY ORAL 05/23/19 09:00 06/22/19 08:59 05/23/19 08:48 Insulin Aspart (NovoLOG) BEFORE MEALS AND HS SUBQ 05/14/19 06:30 06/13/19 06:29 05/23/19 17:47 Insulin Detemir (Levemir) 10 units Q24H SUBQ 05/13/19 22:00 06/12/19 21:59 05/22/19 21:05 Nateglinide (Starlix) 60 mg TIAC ORAL 05/13/19 11:30 06/12/19 11:29 05/23/19 17:45 Ondansetron HCl (Zofran) 4 mg Q6H PRN IVP Nausea & Vomiting 05/12/19 09:45 06/11/19 09:44 05/16/19 22:04 Pantoprazole (Protonix) 40 mg BID ORAL 05/13/19 18:00 06/13/19 08:59 05/23/19 17:45 Polyethylene Glycol (Miralax) 17 gm BEDTIME ORAL 05/23/19 21:00 06/22/19 20:59 Sildenafil Citrate (Revatio) 20 mg THREE TIMES A DAY ORAL 05/17/19 13:00 06/16/19 12:59 05/23/19 17:45 Valproic Acid (Depakene) 125 mg EVERY 12 HOURS NG 05/14/19 21:00 06/13/19 20:59 05/23/19 08:48 Walker Blank MD May 23, 2019 20:46
[2019-05-23] MEDS ORDERED: Miralax 17gm pkt ORAL SCH (21:00)
[2019-05-23] MEDS: Levemir Flexpen SUBQ SCH (21:08)
[2019-05-24] VITALS: BP 116/65
[2019-05-24 04:00] VITALS: BP 125/70
[2019-05-24] MEDS: Nateglinide 60mg tab ORAL SCH ×2 (06:05→11:59)
--- NOTE | 2019-05-24 06:30 | NUR ---
NURSE NOTES: Patient scratched both forearms and caused skin tears on both forearms with minimal bleeding. Wound nurse here assessed the patient and ordered Versatel One and silvasorb gel. Clean both forearms with saline and carried out the order. Endorsed to day nurse.
[2019-05-24] MEDS: NovoLOG Insulin Flexpen SUBQ SCH ×2 (06:32→11:30)
--- NOTE | 2019-05-24 07:30 | NUR ---
NURSE NOTES: Received pt from HALEY RN, Pt is awake and alert, pt has NC 3LMP, Pt has intact iv access LH 22G and LAC 20G SL. Dr OCONNOR visited pt and checked the purpuras on bilateral forearms, ordered Benadryl, noted and carried out. is aware about HB and other lab results and V/S, no new order to RN. Pt is on continues heart monitoring. all needs attended, bed is locked and is in the lowest position, call light within easy reach. will continue to monitor.
[2019-05-24 08:00] VITALS: BP 121/66
--- NOTE | 2019-05-24 09:01 | Nephrology Progress Note ---
Assessment/Plan Problem List: (1) Azotemia (2) Type 2 diabetes mellitus (3) COPD exacerbation (4) Elevated lactic acid level (5) Pulmonary hypertension Assessment: severe Assessment Renal failure COPD Acute- dehydration , ? CKD underlying UTI , High Lactic HyperKalemia DM Anemia DNR Plan no labs today correct mag and K and Phos- On Lasix IV and Sildenafil now ABG noted 2D echo noted- Pulm HTN DC Hydrate- Pulm toilet Anemia castro PO protonix Monitor renal parameters Subjective ROS Limited/Unobtainable: No Constitutional: Reports: malaise Objective Objective Last 24 Hour Vital Signs Date Time Temp Pulse Resp B/P (MAP) Pulse Ox O2 Delivery O2 Flow Rate FiO2 05/24/19 04:00 84 05/24/19 04:00 97.7 80 16 125/70 (88) 99 05/24/19 00:00 81 05/24/19 00:00 97.9 82 19 116/65 (82) 96 05/23/19 21:00 Nasal Cannula 4.0 05/23/19 20:46 97 Nasal Cannula 3.0 32 05/23/19 20:00 98.4 87 16 109/56 (73) 95 05/23/19 20:00 90 05/23/19 16:00 63 05/23/19 16:00 98.2 89 18 132/74 (93) 98 05/23/19 15:28 Nasal Cannula 4.0 05/23/19 12:00 98.1 88 17 120/60 (80) 94 05/23/19 12:00 85 05/23/19 11:31 72 20 98 Nasal Cannula 2.0 28 71 20 94 Intake and Output 05/23/19 05/24/19 19:00 07:00 Intake Total 200 ml Output Total 0 ml Balance 200 ml 0 ml Intake Oral 200 ml Output Urine Total 0 ml # Voids 5 Current Medications Medications (Trade) Dose Ordered Sig/Tenzin Route PRN Reason Start Time Stop Time Status Last Admin Dose Admin Citalopram Hydrobromide (celeXA) 20 mg DAILY ORAL 05/14/19 15:30 06/13/19 15:29 05/23/19 08:49 Dextrose (Dextrose 50%) 25 ml Q30M PRN IV Hypoglycemia 05/13/19 22:00 06/12/19 21:59 Dextrose (Dextrose 50%) 50 ml Q30M PRN IV Hypoglycemia 05/13/19 22:00 06/12/19 21:59 Diphenhydramine HCl (Benadryl) 50 mg Q12H PRN ORAL Itching 05/24/19 08:00 06/23/19 07:59 Docusate Sodium (Colace) 100 mg THREE TIMES A DAY ORAL 05/19/19 18:00 06/18/19 17:59 05/23/19 17:45 Furosemide (Lasix) 40 mg DAILY ORAL 05/23/19 09:00 06/22/19 08:59 05/23/19 08:48 Insulin Aspart (NovoLOG) BEFORE MEALS AND HS SUBQ 05/14/19 06:30 06/13/19 06:29 05/24/19 06:32 Insulin Detemir (Levemir) 10 units Q24H SUBQ 05/13/19 22:00 06/12/19 21:59 05/23/19 21:08 Nateglinide (Starlix) 60 mg TIAC ORAL 05/13/19 11:30 06/12/19 11:29 05/24/19 06:05 Ondansetron HCl (Zofran) 4 mg Q6H PRN IVP Nausea & Vomiting 05/12/19 09:45 06/11/19 09:44 05/16/19 22:04 Pantoprazole (Protonix) 40 mg BID ORAL 05/13/19 18:00 06/13/19 08:59 05/23/19 17:45 Polyethylene Glycol (Miralax) 17 gm BEDTIME ORAL 05/23/19 21:00 06/22/19 20:59 05/23/19 21:05 Sildenafil Citrate (Revatio) 20 mg THREE TIMES A DAY ORAL 05/17/19 13:00 06/16/19 12:59 05/23/19 17:45 Valproic Acid (Depakene) 125 mg EVERY 12 HOURS NG 05/14/19 21:00 06/13/19 20:59 05/23/19 21:05 Height (Feet): 5 Height (Inches): 1.00 Weight (Pounds): 120 General Appearance: no apparent distress Objective no change José Miguel Calvert MD May 24, 2019 09:01
[2019-05-24] MEDS: Docusate 100mg/10ml Liq ORAL SCH ×2 (09:12→12:00)
[2019-05-24] MEDS: Valproic Acid 250mg/5ml Liquid NG SCH (09:13)
[2019-05-24] MEDS: Furosemide 40mg tab ORAL SCH (09:13)
[2019-05-24] MEDS: Citalopram Hydrobromide 10mg Tab ORAL SCH (09:13)
[2019-05-24] MEDS: Revatio 20mg tab ORAL SCH ×2 (09:13→12:00)
--- NOTE | 2019-05-24 09:37 | Pulmonology Progress Note ---
Assessment/Plan Assessment/Plan Pulmonary Progress Note HPI: The patient is a 68 year old woman, [facility] with past medical history of Parkinsons Disease, focal weakness, Diabetes, Mood Disorder, Seizure History, Hyperlipidemia, Constipation admitted with UTI/sepsis, noted to be hypotensive on admission, have significantly elevated Lactic Acid Levels, Positive Urine Ketones, Acute Renal Insufficiency, Anemia. The patient has been having fevers, vomiting for two days, had c/o abdominal pain and diarrhea for two days CUTTER HELPER. No rectal bleeding noted. No shortness of breath, orthopnea CUTTER HELPER. No wheezing, cough or chest pain CUTTER HELPER. ABG improved, Glucose improved on ISS On puree diet per ST, NC O2 2L/min Fluid overloaded on admission with significantly elevated BNP level, severe pulmonary hypertension as well as congestive heart failure with diastolic dysfunction. Significantly improved on Lasix, sildenafil 20 mg three times a day - Cardiology following No new complaints VQ scan: Intermediate probability for pulmonary embolus. CTA: No evidence of pulmonary embolus, aortic dissection or aneurysm. Primarily interstitial appearing infiltrate present within the right upper lobe. Findings presumably on the basis of pneumonia. Cystic changes noted bilaterally with predominant involvement of the right upper lobe in the area of infiltrate. These may be pre-existing or associated with the pneumonia. PAST MEDICAL HISTORY: Parkinsons Disease, focal weakness, Diabetes, Mood Disorder, Depression, Seizure History, Hyperlipidemia, Constipation, Anemia PAST SURGICAL HISTORY: Tubal ligation. SOCIAL HISTORY: No history of smoking. Denies history of drug or alcohol abuse. ALLERGIES: No known allergies. MEDICATIONS: CUTTER HELPER: Lipitor, bisacodyl, citalopram, Colace, ferrous sulfate, Lasix, insulin, metformin. On antibiotics per ID, HHN, O2 PRN, ISS FAMILY HISTORY: Noncontributory. REVIEW OF SYSTEMS: Negative aside from above PHYSICAL EXAMINATION: VITAL SIGNS NOTED HEENT: NCAT, moist mm. NECK: No lymphadenopathy, no masses CHEST: Reduced basal BS. CARDIOVASCULAR: Regular rate and rhythm. No murmurs or extra sounds. GASTROINTESTINAL: Soft, nontender, nondistended. No organomegaly. EXTREMITIES: Mild edema. 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 ONLINE COMMUNICATIONS MANAGER: Priented, tremor, right arm weaker than left, no seizures, sensation intact ASSESSMENT: Pneumonia Abnormal swallow Diastolic Dysfunction Congestive Heart Failure Severe Pulm HTN - no PE on CTA Volume overload improved with diuresis Cystuc changes in region of pneumonia will need to be followed as out patient On modified diet per ST H/o constipation Parkinsons Disease Previous h/o focal weakness Diabetes on ISS Anemia Mood Disorder - Depression - Psychiatry following Seizure History Hyperlipidemia PLAN: - Diurese per Cardiology - Sildenafil - HHN - O2 PRN - wean as possible - currently 2L/min - PPX - Antibiotics per ID - CUTTER HELPER Medications - Lantus/ISS d - BiPAP PRN and QHS - ST evaluation of swallow noted - GI following - Monitor labs - Heme following for anemia - CTA DW RN Seen earlier EKG: LA enlargement CXR: No acute disease initially, currently: extensive bilateral interstitial and airspace disease, likely pneumonia although edema also possibility. Suspect small left and possible trace right pleural effusions KUB: Normal LE Dupplex: Negative VQ scan: Intermediate probability for pulmonary embolus. CTA: No evidence of pulmonary embolus, aortic dissection or aneurysm. Primarily interstitial appearing infiltrate present within the right upper lobe. Findings presumably on the basis of pneumonia. Cystic changes noted bilaterally with predominant involvement of the right upper lobe in the area of infiltrate. These may be pre-existing or associated with the pneumonia. BC : Negative UA: Positive for UTI Subjective ROS Limited/Unobtainable: No Allergies: Coded Allergies: No Known Allergies (Unverified , 11/08/15) Objective Last 24 Hour Vital Signs Date Time Temp Pulse Resp B/P (MAP) Pulse Ox O2 Delivery O2 Flow Rate FiO2 05/24/19 07:42 74 05/24/19 04:00 84 05/24/19 04:00 97.7 80 16 125/70 (88) 99 05/24/19 00:00 81 05/24/19 00:00 97.9 82 19 116/65 (82) 96 05/23/19 21:00 Nasal Cannula 4.0 05/23/19 20:46 97 Nasal Cannula 3.0 32 05/23/19 20:00 98.4 87 16 109/56 (73) 95 05/23/19 20:00 90 05/23/19 16:00 63 05/23/19 16:00 98.2 89 18 132/74 (93) 98 05/23/19 15:28 Nasal Cannula 4.0 05/23/19 12:00 98.1 88 17 120/60 (80) 94 05/23/19 12:00 85 05/23/19 11:31 72 20 98 Nasal Cannula 2.0 28 71 20 94 Intake and Output 05/23/19 05/24/19 19:00 07:00 Intake Total 200 ml Output Total 0 ml Balance 200 ml 0 ml Intake Oral 200 ml Output Urine Total 0 ml # Voids 5 Current Medications Medications (Trade) Dose Ordered Sig/Tenzin Route PRN Reason Start Time Stop Time Status Last Admin Dose Admin Citalopram Hydrobromide (celeXA) 20 mg DAILY ORAL 05/14/19 15:30 06/13/19 15:29 05/24/19 09:13 Dextrose (Dextrose 50%) 25 ml Q30M PRN IV Hypoglycemia 05/13/19 22:00 06/12/19 21:59 Dextrose (Dextrose 50%) 50 ml Q30M PRN IV Hypoglycemia 05/13/19 22:00 06/12/19 21:59 Diphenhydramine HCl (Benadryl) 50 mg Q12H PRN ORAL Itching 05/24/19 08:00 06/23/19 07:59 05/24/19 09:13 Docusate Sodium (Colace) 100 mg THREE TIMES A DAY ORAL 05/19/19 18:00 06/18/19 17:59 05/24/19 09:12 Furosemide (Lasix) 40 mg DAILY ORAL 05/23/19 09:00 06/22/19 08:59 05/24/19 09:13 Insulin Aspart (NovoLOG) BEFORE MEALS AND HS SUBQ 05/14/19 06:30 06/13/19 06:29 05/24/19 06:32 Insulin Detemir (Levemir) 10 units Q24H SUBQ 05/13/19 22:00 06/12/19 21:59 05/23/19 21:08 Nateglinide (Starlix) 60 mg TIAC ORAL 05/13/19 11:30 06/12/19 11:29 05/24/19 06:05 Ondansetron HCl (Zofran) 4 mg Q6H PRN IVP Nausea & Vomiting 05/12/19 09:45 06/11/19 09:44 05/16/19 22:04 Pantoprazole (Protonix) 40 mg BID ORAL 05/13/19 18:00 06/13/19 08:59 05/24/19 09:13 Polyethylene Glycol (Miralax) 17 gm BEDTIME ORAL 2/9/20 21:00 06/22/19 20:59 05/23/19 21:05 Sildenafil Citrate (Revatio) 20 mg THREE TIMES A DAY ORAL 05/17/19 13:00 06/16/19 12:59 05/24/19 09:13 Valproic Acid (Depakene) 125 mg EVERY 12 HOURS NG 05/14/19 21:00 06/13/19 20:59 05/24/19 09:13 Walker Blank MD May 24, 2019 09:37
--- NOTE | 2019-05-24 10:08 | Cardiac Electrophysiology PN ---
Assessment/Plan Assessment/Plan 1. Shortness of breath due to severe pulmonary hypertension and CHF due to diastolic dysfunction.EF 55%. BNP is 9000. Continue Lasix 40 mg po daily and sildenafil 20 mg tid VQ scan intermediate probability. Chest CT angio no PE or dissection 2. Severe pulmonary hypertension with PA pressure of 123. On Sildenefil 20 tid. TAYLOR Blank 3. COPD, on oxygen. Evaluation by Dr. Blank. 4. Pneumonia, leukocytosis, and diabetes. 5. Anemia. PATRICK RN OK to DC from cardiac standpoint Subjective Subjective No CP in SR in 80s. VQ scan was intermediate probability but CT chest showed no PE or dissection Comfortable in NAD. Objective Last 24 Hour Vital Signs Date Time Temp Pulse Resp B/P (MAP) Pulse Ox O2 Delivery O2 Flow Rate FiO2 05/24/19 09:00 Nasal Cannula 4.0 05/24/19 07:42 74 05/24/19 04:00 84 05/24/19 04:00 97.7 80 16 125/70 (88) 99 05/24/19 00:00 81 05/24/19 00:00 97.9 82 19 116/65 (82) 96 05/23/19 21:00 Nasal Cannula 4.0 05/23/19 20:46 97 Nasal Cannula 3.0 32 05/23/19 20:00 98.4 87 16 109/56 (73) 95 05/23/19 20:00 90 05/23/19 16:00 63 05/23/19 16:00 98.2 89 18 132/74 (93) 98 05/23/19 15:28 Nasal Cannula 4.0 05/23/19 12:00 98.1 88 17 120/60 (80) 94 05/23/19 12:00 85 05/23/19 11:31 72 20 98 Nasal Cannula 2.0 28 71 20 94 Intake and Output 05/23/19 05/24/19 19:00 07:00 Intake Total 200 ml Output Total 0 ml Balance 200 ml 0 ml Intake Oral 200 ml Output Urine Total 0 ml # Voids 5 Objective HEAD AND NECK: Mild JVD. LUNGS: Coarse rhonchi.Decreased breath sounds CARDIOVASCULAR: Shows regular S1 and S2 with no gallop. ABDOMEN: Soft. EXTREMITIES: No pitting edema. Noe Galdamez MD May 24, 2019 10:08
--- NOTE | 2019-05-24 10:10 | Infectious Diseases Prog Note ---
Assessment/Plan Assessment/Plan IMPRESSION: Pneumonia treated Leukocytosis, resolved Acute renal failure. resolved diabetes mellitus, hypertension, COPD, anemia. Sever pulmonary hypertension RECOMMENDATION: Observe off antibiotic Subjective ROS Limited/Unobtainable: No Constitutional: Reports: no symptoms Respiratory: Reports: no symptoms Gastrointestinal/Abdominal: Reports: no symptoms Genitourinary: Reports: no symptoms Allergies: Coded Allergies: No Known Allergies (Unverified , 11/08/15) Objective Vital Signs Last 24 Hour Vital Signs Date Time Temp Pulse Resp B/P (MAP) Pulse Ox O2 Delivery O2 Flow Rate FiO2 05/24/19 09:00 Nasal Cannula 4.0 05/24/19 07:42 74 05/24/19 04:00 84 05/24/19 04:00 97.7 80 16 125/70 (88) 99 05/24/19 00:00 81 05/24/19 00:00 97.9 82 19 116/65 (82) 96 05/23/19 21:00 Nasal Cannula 4.0 05/23/19 20:46 97 Nasal Cannula 3.0 32 05/23/19 20:00 98.4 87 16 109/56 (73) 95 05/23/19 20:00 90 05/23/19 16:00 63 05/23/19 16:00 98.2 89 18 132/74 (93) 98 05/23/19 15:28 Nasal Cannula 4.0 05/23/19 12:00 98.1 88 17 120/60 (80) 94 05/23/19 12:00 85 05/23/19 11:31 72 20 98 Nasal Cannula 2.0 28 71 20 94 Height (Feet): 5 Height (Inches): 1.00 Weight (Pounds): 120 General Appearance: no acute distress HEENT: mucous membranes moist Respiratory/Chest: lungs clear, other - oxygen by nasal cannula Cardiovascular: normal rate Abdomen: soft, non tender Extremities: no edema Neurologic/Psychiatric: alert, responsive Current Medications Medications (Trade) Dose Ordered Sig/Tenzin Route PRN Reason Start Time Stop Time Status Last Admin Dose Admin Citalopram Hydrobromide (celeXA) 20 mg DAILY ORAL 05/14/19 15:30 06/13/19 15:29 05/24/19 09:13 Dextrose (Dextrose 50%) 25 ml Q30M PRN IV Hypoglycemia 05/13/19 22:00 06/12/19 21:59 Dextrose (Dextrose 50%) 50 ml Q30M PRN IV Hypoglycemia 05/13/19 22:00 06/12/19 21:59 Diphenhydramine HCl (Benadryl) 50 mg Q12H PRN ORAL Itching 05/24/19 08:00 06/23/19 07:59 05/24/19 09:13 Docusate Sodium (Colace) 100 mg THREE TIMES A DAY ORAL 05/19/19 18:00 06/18/19 17:59 05/24/19 09:12 Furosemide (Lasix) 40 mg DAILY ORAL 05/23/19 09:00 06/22/19 08:59 05/24/19 09:13 Insulin Aspart (NovoLOG) BEFORE MEALS AND HS SUBQ 05/14/19 06:30 06/13/19 06:29 05/24/19 06:32 Insulin Detemir (Levemir) 10 units Q24H SUBQ 05/13/19 22:00 06/12/19 21:59 05/23/19 21:08 Nateglinide (Starlix) 60 mg TIAC ORAL 05/13/19 11:30 06/12/19 11:29 05/24/19 06:05 Ondansetron HCl (Zofran) 4 mg Q6H PRN IVP Nausea & Vomiting 05/12/19 09:45 06/11/19 09:44 05/16/19 22:04 Pantoprazole (Protonix) 40 mg BID ORAL 05/13/19 18:00 06/13/19 08:59 05/24/19 09:13 Polyethylene Glycol (Miralax) 17 gm BEDTIME ORAL 05/23/19 21:00 06/22/19 20:59 05/23/19 21:05 Sildenafil Citrate (Revatio) 20 mg THREE TIMES A DAY ORAL 05/17/19 13:00 06/16/19 12:59 05/24/19 09:13 Valproic Acid (Depakene) 125 mg EVERY 12 HOURS NG 05/14/19 21:00 06/13/19 20:59 05/24/19 09:13 Rogelio Martinez MD May 24, 2019 10:10
[2019-05-24] MEDS ORDERED: DEPAKENE L250 MG/5 M GT (11:53)
[2019-05-24] MEDS ORDERED: PROTONIX40 MG ORAL (11:54)
[2019-05-24] MEDS ORDERED: STARLIX60 MG ORAL (11:55)
[2019-05-24] MEDS ORDERED: FUROSEMIDE40 MG ORAL (11:56)
[2019-05-24 12:00] VITALS: BP 119/71
[2019-05-24] MEDS ORDERED: CELEXA20 MG ORAL (12:00)
[2019-05-24] MEDS ORDERED: LEVEMIR FL100 UNIT/1 SUBQ (12:12)
[2019-05-24] MEDS ORDERED: NOVOLOG100 UNITS1 (12:13)
--- NOTE | 2019-05-24 12:42 | NUR ---
DISCHARGE PLANNED: PATIENT IS RETURNING TO [facility] T: [phone] FOR NURSE TO NURSE REPORT ROOM 7B [facility] PICKUP TIME 230PM NO FAMILY ON FACE-SHEET TO CONTACT
[2019-05-24] MEDS ORDERED: D5NS 1000ml IV ONE (14:59)
--- NOTE | 2019-05-24 15:07 | NUR ---
NURSE NOTES: pt has D/C order, all discharge assessments and instructions done, pt is stable, V/S stable, pt has a pillow and a reading glasses with her, report given to [facility] NEFTALI IBARRA, no family involved, iv access D/C, [id number] picture from sacral and uploaded, still dressing on both hands due to purpura. pt left hospital with accompany ambulance personnel.
--- NOTE | 2019-05-24 19:01 | Hematology/Onc Progress Note ---
Assessment/Plan Assessment/Plan Assessment and Recs: # Anemia of iron deficiency -- hgb remains low, anemia panel reviewed, ferritin is 20 --> start on iv iron x 5 days --> cea is 4.9 --> no hemolysis is seen --> r/o gi bleed, gi is on board --> blood tx: 1 unit on 05/15, --> hgb was 8.1-->8->9.5-->8.4 # Leukocytosis with Sepsis likely due to uti --> has now improved --> levaquin started-->zosyn-->now off # Ryan on admission --> per renal on ivf # Elevated lactic acid level --> sp abx lecquin # Type 2 diabetes mellitus --> acucchecks qac and qhs --> iss, consider endo # Stage I decubitus ulcer sacrum # Dvt ppx scds --> cta negative for pe Appreciate consultation and michael Rn Subjective Allergies: Coded Allergies: No Known Allergies (Unverified , 11/08/15) Subjective 05/16: awake and alert, v mask, s/p blood, on iv iron 2: no bleeding or chills noted, hgb remains stable, at hgb 8 05/18: remains on celexa, no bleeding, no chills, cbc reordered, no rxn to iv iron 05/19: is getting ct of the chest with angio, no bleeding or chills 05/20: on 4l nc is pending cta, no bleeding, no night sweats 05/21: no acute events, cta negative for pe, off abx 05/23: no acute distress, nc, hgb 7.7, repeat cbc tomorrow 05/24: forearms examined, no acute distress, stable for dc Objective Objective Last 24 Hour Vital Signs Date Time Temp Pulse Resp B/P (MAP) Pulse Ox O2 Delivery O2 Flow Rate FiO2 05/24/19 12:00 98.4 78 18 119/71 (87) 96 05/24/19 11:47 80 05/24/19 09:00 Nasal Cannula 4.0 05/24/19 08:00 98.0 77 17 121/66 (84) 98 05/24/19 07:42 74 05/24/19 04:00 84 05/24/19 04:00 97.7 80 16 125/70 (88) 99 05/24/19 00:00 81 05/24/19 00:00 97.9 82 19 116/65 (82) 96 05/23/19 21:00 Nasal Cannula 4.0 05/23/19 20:46 97 Nasal Cannula 3.0 32 05/23/19 20:00 98.4 87 16 109/56 (73) 95 05/23/19 20:00 90 05/23/19 16:00 63 05/23/19 16:00 98.2 89 18 132/74 (93) 98 05/23/19 15:28 Nasal Cannula 4.0 05/23/19 12:00 98.1 88 17 120/60 (80) 94 05/23/19 12:00 85 05/23/19 11:31 72 20 98 Nasal Cannula 2.0 28 71 20 94 05/23/19 09:00 Nasal Cannula 4.0 05/23/19 08:00 97.2 86 20 136/88 (104) 96 05/23/19 08:00 92 05/23/19 07:59 84 20 99 Nasal Cannula 3.0 32 86 20 96 05/23/19 07:58 96 Nasal Cannula 3.0 32 05/23/19 04:00 97.0 93 20 134/79 (97) 99 05/23/19 04:00 86 05/23/19 02:56 86 16 100 Nasal Cannula 2.0 28 83 18 98 05/23/19 00:00 90 05/23/19 00:00 97.9 92 20 144/76 (98) 99 05/22/19 23:08 96 16 100 Nasal Cannula 2.0 28 94 18 97 05/22/19 21:00 Nasal Cannula 4.0 05/22/19 20:00 97.3 93 18 100/71 (81) 100 05/22/19 20:00 88 05/22/19 19:34 91 Room Air 21 05/22/19 19:34 94 16 97 Nasal Cannula 2.0 28 91 16 91 Intake and Output 05/23/19 05/24/19 19:00 07:00 Intake Total 200 ml Output Total 0 ml Balance 200 ml 0 ml Intake Oral 200 ml Output Urine Total 0 ml # Voids 5 Labs Test 05/22/19 06:05 05/23/19 06:53 White Blood Count 11.7 K/UL (4.8-10.8) 10.4 K/UL (4.8-10.8) Red Blood Count 2.73 M/UL (4.20-5.40) 2.56 M/UL (4.20-5.40) Hemoglobin 8.2 G/DL (12.0-16.0) 7.7 G/DL (12.0-16.0) Hematocrit 24.9 % (37.0-47.0) 23.5 % (37.0-47.0) Mean Corpuscular Volume 91 FL (80-99) 92 FL (80-99) Mean Corpuscular Hemoglobin 30.1 PG (27.0-31.0) 30.0 PG (27.0-31.0) Mean Corpuscular Hemoglobin Concent 33.0 G/DL (32.0-36.0) 32.7 G/DL (32.0-36.0) Red Cell Distribution Width 19.5 % (11.6-14.8) 19.4 % (11.6-14.8) Platelet Count 377 K/UL (150-450) 365 K/UL (150-450) Mean Platelet Volume 5.5 FL (6.5-10.1) 5.5 FL (6.5-10.1) Neutrophils (%) (Auto) 54.0 % (45.0-75.0) % (45.0-75.0) Lymphocytes (%) (Auto) 31.0 % (20.0-45.0) % (20.0-45.0) Monocytes (%) (Auto) 9.1 % (1.0-10.0) % (1.0-10.0) Eosinophils (%) (Auto) 4.5 % (0.0-3.0) % (0.0-3.0) Basophils (%) (Auto) 1.4 % (0.0-2.0) % (0.0-2.0) Sodium Level 141 MMOL/L (136-145) 143 MMOL/L (136-145) Potassium Level 4.4 MMOL/L (3.5-5.1) 3.7 MMOL/L (3.5-5.1) Chloride Level 102 MMOL/L (98-107) 103 MMOL/L (98-107) Carbon Dioxide Level 34 MMOL/L (21-32) 36 MMOL/L (21-32) Anion Gap 5 mmol/L (5-15) 4 mmol/L (5-15) Blood Urea Nitrogen 27 mg/dL (7-18) 28 mg/dL (7-18) Creatinine 1.2 MG/DL (0.55-1.30) 1.1 MG/DL (0.55-1.30) Estimat Glomerular Filtration Rate 44.7 mL/min (>60) 49.4 mL/min (>60) Glucose Level 164 MG/DL (74-106) 136 MG/DL (74-106) Uric Acid 8.5 MG/DL (2.6-7.2) Calcium Level 8.8 MG/DL (8.5-10.1) 9.3 MG/DL (8.5-10.1) Phosphorus Level 4.1 MG/DL (2.5-4.9) Magnesium Level 2.0 MG/DL (1.8-2.4) Total Bilirubin < 0.1 MG/DL (0.2-1.0) Aspartate Amino Transf (AST/SGOT) 53 U/L (15-37) Alanine Aminotransferase (ALT/SGPT) 39 U/L (12-78) Alkaline Phosphatase 49 U/L (46-116) C-Reactive Protein, Quantitative < 0.4 mg/dL (0.00-0.90) Pro-B-Type Natriuretic Peptide 857 pg/mL (0-125) Total Protein 6.4 G/DL (6.4-8.2) Albumin 2.6 G/DL (3.4-5.0) Globulin 3.8 g/dL Albumin/Globulin Ratio 0.7 (1.0-2.7) Differential Total Cells Counted 100 Neutrophils % (Manual) 66 % (45-75) Lymphocytes % (Manual) 25 % (20-45) Monocytes % (Manual) 4 % (1-10) Eosinophils % (Manual) 5 % (0-3) Basophils % (Manual) 0 % (0-2) Band Neutrophils 0 % (0-8) Platelet Estimate Adequate Platelet Morphology Normal Hypochromasia 1+ Anisocytosis 1+ Height (Feet): 5 Height (Inches): 1.00 Weight (Pounds): 120 Objective Physical Exam Vitals: reviewed General: alert, non-toxic, thin, other - Frail, Chronically Ill Head: normocephalic, atraumatic Heent: bilateral eye normal inspection, bilateral eye PERRl Respiratory: lungs clear, normal breath sounds, V mask++ Cardiovascular: regular rate, rhythm, no edema Gi: non tender, soft, decreased bowel sounds Gu: no CVA tenderness Msk: no calf tenderness, + Atrophy Neuro: alert, sensory intact, w motor weakness Psychiatric: mood/affect normal Skin: ++ Danie Jackson MD May 24, 2019 19:01
--- NOTE | 2019-05-24 22:37 | General Progress Note ---
Assessment/Plan Status: progressing, unchanged Assessment/Plan: Assessment - N/V - resolved - Sepsis - improved - lactic acidosis - improved - Renal failure - RAD - anemia Recommendations - Abx - IVF - po pureed - follow labs - Check OB Subjective Allergies: Coded Allergies: No Known Allergies (Unverified , 11/08/15) Subjective Feels OK seen early am tolerating PO Breathing OK for discharge today Objective Last 24 Hour Vital Signs Date Time Temp Pulse Resp B/P (MAP) Pulse Ox O2 Delivery O2 Flow Rate FiO2 05/24/19 12:00 98.4 78 18 119/71 (87) 96 05/24/19 11:47 80 05/24/19 09:00 Nasal Cannula 4.0 05/24/19 08:00 98.0 77 17 121/66 (84) 98 05/24/19 07:42 74 05/24/19 04:00 84 05/24/19 04:00 97.7 80 16 125/70 (88) 99 05/24/19 00:00 81 05/24/19 00:00 97.9 82 19 116/65 (82) 96 Intake and Output 05/23/19 05/24/19 19:00 07:00 Intake Total 200 ml Output Total 0 ml Balance 200 ml 0 ml Intake Oral 200 ml Output Urine Total 0 ml # Voids 5 Height (Feet): 5 Height (Inches): 1.00 Weight (Pounds): 120 Objective WDWN AA woman NCAT supple Chest - some ronchi and wheeze RR abd soft NT ND no edema Sangeeta Bianchi MD May 24, 2019 22:37
--- NOTE | 2019-05-27 08:17 | Discharge Summary ---
Discharge Summary Discharge Summary _ DATE OF ADMISSION: 05/12/2019 DATE OF DISCHARGE: 05/24/2019 DISCHARGED BY: Dr. Rios REASON FOR ADMISSION: 68 years old female with past medical history of diabetes mellitus, hyperlipidemia, dysphagia, feeding by G-tube, encephalopathy, presented after vomiting episode. Patient was not able to keep any food or fluids down. Patient with DNR/DNI status. Laboratory work-up revealed evidence of renal insufficiency, leukocytosis, anemia and elevated lactic acid. Potassium 5.6. Troponin negative .EKG revealed sinus rhythm with left atrial enlargement. Urinalysis revealed evidence of possible UTI. Patient started on IV hydration. Pepcid, Reglan and Benadryl provided. Septic work-up initiated. Patient was admitted for further management. CONSULTANTS cardiology Dr Ann pulmonary Dr. Blank ID specialist Dr. Singh GI specialist Dr. Bianchi rn l and d Dr. Calvert jewelry store manager/oncologist Dr. Marin psychiatrist [facility] COURSE: Patient admitted to telemetry floor. Patient started on IV fluids and empiric antibiotics as per ID specialist recommendation. Blood cultures were negative. Influenza swab test was negative. Urine culture revealed lactobacillus species with a colony count 10-20 only. Venous duplex bilateral lower extremity revealed no evidence of acute DVT. VQ scan revealed intermediate probability for pulmonary emboli. Subsequently CTA of the chest was done, which revealed no evidence of pulmonary emboli, aortic dissection or aneurysm. Primarily interstitial appearing infiltrate in the right upper lobe presumably on the basis of pneumonia. Supplemental oxygen provided and titrated to keep pulse oximetry above 92%. Nebulizing treatment with bronchodilator provided as needed. DVT prophylaxis provided. BiPAP was on board as needed and at at bedtime. Patient was followed-up with a chest x-ray. Patient was treated for pneumonia and completed treatment while in the hospital. Leukocytosis resolved, no fevers. Echocardiogram revealed preserved ejection fraction of 55 to 60% with no evidence of wall motion abnormality. No evidence of left ventricular hypertrophy. Moderate mitral regurgitation. Right ventricular systolic pressure of 123 consistent with severe pulmonary hypertension. Patient started on sildenafil. Per cardiology , shortness of breath was due to CHF with diastolic dysfunction . Patient started on IV diuresis with close monitoring of volumes and cardiorenal parameters. Volume overload was improved with diuresis. Diuretic subsequently changed to oral route. Patient noted to have cystic changes in the region of pneumonia . As per sales and marketing specialist patient will need to be followed up as outpatient. Bedside swallow evaluation was abnormal. Diet texture provided as per speech therapist recommendation with strict aspiration/reflux precaution. Blood sugar was managed with sliding scale of insulin. Diabetic diet provided. Hemoglobin A1c 7.1 . Renal parameters and electrolytes were closely monitored, electrolytes corrected as needed , and nephrotoxins were avoided . Prior to discharge BUN from 47 down to 28 and creatinine from 1.5 down to 1.1 . All electrolytes were corrected and stable prior to discharge. Per rn l and d , patient had acute kidney injury most likely due to dehydration and probably underlying chronic kidney disease. GI prophylaxis provided . Symptomatic treatment for nausea and vomiting provid. All symptoms resolved. Bowel regimen instituted. Hemoglobin and hematocrit were closely monitored with goal to keep hemoglobin above 7. Anemia work-up was consistent with anemia of iron deficiency. Patient received IV Venofer or 5 days as per jewelry store manager recommendation. Follow-up with hemoglobin /hematocrit as outpatient. Per psychiatrist , patient had major depressive disorder. Celexa was increased to 20 mg in the morning. Reality orientation and supportive therapy provided. Patient clinically stabilized and was ready for transfer to senior living facility for continuation of care. FINAL DIAGNOSES: Severe pulmonary hypertension CHF with diastolic dysfunction Volume overload Pneumonia Leukocytosis Acute kidney injury due to dehydration on probable underlying chronic kidney disease COPD Nausea and vomiting -resolved Constipation Diabetes mellitus Anemia of iron deficiency Dysphagia Hyperkalemia -resolved Major depressive disorder. DISCHARGE MEDICATIONS: See Medication Reconciliation list. DISCHARGE INSTRUCTIONS: Patient was discharged to the senior living facility. Follow up with medical doctor at the facility. I have been assigned to dictate discharge summary for this account. I was not involved in the patient's management. Patti Durham NP May 27, 2019 08:17
== END 2019-05-24 15:00 | DRG 871 ==
LOC: EDBD 23:22 → EDUNIT# 23:22 → EMR 23:44 → 2W 05-12 00:15 → EDBEDREQSVC 05-12 00:57 → EDBEDREQ 05-12 03:53 → 2W 05-12 12:43 → 2E 05-14 18:08
PROC: 30233N1 Transfusion of Nonautologous Red Blood Cells into Peripheral Vein, Percutaneous Approach (ICD-10-PCS; principal; 2019-05-15)
DX: A41.9 Sepsis, unspecified organism (principal); J69.0 Pneumonitis due to inhalation of food and vomit; N39.0 Urinary tract infection, site not specified; N17.9 Acute kidney failure, unspecified; J44.1 Chronic obstructive pulmonary disease with (acute) exacerbation; E87.2 Acidosis; R65.20 Severe sepsis without septic shock; E86.0 Dehydration; E11.69 Type 2 diabetes mellitus with other specified complication; E11.65 Type 2 diabetes mellitus with hyperglycemia; D50.9 Iron deficiency anemia, unspecified; E87.5 Hyperkalemia; K59.00 Constipation, unspecified; Z66 Do not resuscitate; E11.22 Type 2 diabetes mellitus with diabetic chronic kidney disease; I12.9 Hypertensive chronic kidney disease with stage 1 through stage 4 chronic kidney disease, or unspecified chronic kidney disease; N18.9 Chronic kidney disease, unspecified; D72.829 Elevated white blood cell count, unspecified; G40.909 Epilepsy, unspecified, not intractable, without status epilepticus; K80.20 Calculus of gallbladder without cholecystitis without obstruction; G20 Parkinson's disease; R13.10 Dysphagia, unspecified; L89.151 Pressure ulcer of sacral region, stage 1; I27.20 Pulmonary hypertension, unspecified; E78.5 Hyperlipidemia, unspecified; I70.0 Atherosclerosis of aorta; K21.9 Gastro-esophageal reflux disease without esophagitis; F03.90 Unspecified dementia, unspecified severity, without behavioral disturbance, psychotic disturbance, mood disturbance, and anxiety; F32.9 Major depressive disorder, single episode, unspecified; F39 Unspecified mood [affective] disorder; Z79.4 Long term (current) use of insulin; Z87.440 Personal history of urinary (tract) infections; Z86.19 Personal history of other infectious and parasitic diseases; Z93.1 Gastrostomy status; Z23 Encounter for immunization
CPT/HCPCS: 36415; 36600; 71045; 71275; 74018; 78579; 78580; 80048; 80053; 80061; 80076; 81003; 82378; 82533; 82607; 82728; 82746; 82803; 82962; 82977; 83036; 83540; 83550; 83605; 83690; 83735; 83880; 84100; 84300; 84443; 84484; 84550; 85007; 85025; 85610; 85730; 86140; 86710; 86850; 86900; 86901; 86920; 87040; 87081; 87086; 89050; 90689; 93005; 93306; 93970; 94640; 96361; 96365; 96368; 96375; 99285; A9503; J1815; J2405; J2765; J7030; J7620; J8499; S5561

== ENCOUNTER 2019-09-16 18:03 | Inpatient (IN) | payer MEDICARE, MEDICAID ==
[~2019-09-16] VITALS: Ht 165.1 cm; Wt 59.0 kg
[~2019-09-16 18:03] MED LIST changes: +AMANTADINE50 MG/5 ML ORAL; +CELEXA20 MG ORAL; +CITALOPRAM10 MG/5 M1 ORAL; +COLACE100 MG ORAL; +DEPAKENE L250 MG/5 M GT; +DULCOLAX10 MG RC; +HUMALOG100 UNIT/3 SUBQ; +LEVEMIR FL100 UNIT/1 SUBQ; +MIRALAX17 G2 ORAL; +MOM30 ML ORAL; +NOVOLOG100 UNITS1; +PROTONIX40 MG ORAL; +STARLIX60 MG ORAL
[2019-09-16] MEDS ORDERED: CITALOPRAM HBR20 M1 ORAL (18:15)
[2019-09-16] MEDS ORDERED: VITAMIN C500 M1 ORAL (18:15)
[2019-09-16] MEDS ORDERED: VALPROIC ACID250 MG PO (18:15)
[2019-09-16] MEDS ORDERED: VIRT-CAPS SOFTGE1 MG PO (18:15)
--- NOTE | 2019-09-16 18:16 | NUR ---
ED Nurse Note: Dr Mcmahon notified of rectal temp of 103.5 F.
--- NOTE | 2019-09-16 18:19 | NUR ---
ED Nurse Note: Pt brought in by ambulance from [facility] d/t altered mental status. Baseline A+Ox3. Pt A+Ox1 upon arrival. Last well known time around noon today. Temp 103.5 rectally. O2 saturation 91% on room air. 2 L NC applied, pt now 97%. All other vitals stable as documented. Pt hot to touch. Respirations even and unlabored. Sacral and buttocks redness noted.
[2019-09-16] MEDS ORDERED: Acetaminophen 650 MG SUPP RECTAL ONE ×2 (18:21→18:30)
[2019-09-16 18:30] VITALS: BP 127/65
--- NOTE | 2019-09-16 18:32 | Emergency Room Report ---
History of Present Illness General Chief Complaint: Altered Level of Consciousness Source: Medical Record Present Illness HPI Disclaimer: Please note that this report is being documented using [employer] technology. This can lead to erroneous entry secondary to incorrect interpretation by the dictating instrument. HPI: 68-year-old female history of diabetes, liver disease, metabolic encephalopathy, presented from [facility] due to altered mental status. Apparently patient was at her normal state approximately 6 hours ago and then on a reassessment for dinnertime patient seem altered. Kos was checked and was elevated. Patient presented by EMS. On arrival patient alert to name only and unable to provide any further history. There is no report of fever cough or shortness of breath nausea or vomiting however patient was febrile on arrival. PMH: PSH: Reviewed Social Hx: Allergies: Coded Allergies: No Known Allergies (Unverified , 11/08/15) COVID-19 Screening Contact w/high risk pt: No Recent Travel to affected area: No Experienced COVID-19 symptoms?: Yes COVID-19 symptoms experienced: Fever (T>100.4F or >38C) COVID-19 Testing performed SKIN FORMER: No Patient History Reviewed Nursing Documentation: PMH: Agreed; PSxH: Agreed Nursing Documentation-PMH Past Medical History: No History, Except For Hx Cardiac Problems: Yes - Hyperlipidemia, Atherosclerosis Hx Hypertension: Yes Hx COPD: Yes Hx Diabetes: Yes - acute pancreatitis Hx Gastrointestinal Problems: Yes - hepatic failure, GERD Hx Dementia: Yes Hx Seizures: Yes Hx Weakness: Yes Review of Systems All Other Systems: limited - Due to baseline altered mental status Physical Exam Vital Signs Date Time Temp Pulse Resp B/P (MAP) Pulse Ox O2 Delivery O2 Flow Rate FiO2 09/16/19 18:04 103.5 97 20 150/111 (124) 94 Room Air Sp02 EP Interpretation: reviewed, normal General Appearance: no apparent distress, Chronically Ill Head: normocephalic, atraumatic Eyes: bilateral eye PERRL, bilateral eye EOMI ENT: hearing grossly normal, moist mucus membranes Neck: full range of motion, supple Respiratory: lungs clear, normal breath sounds, no rhonchi, no respiratory distress, no retraction, no wheezing Cardiovascular #1: normal peripheral pulses, regular rate, rhythm, no murmur Gastrointestinal: non tender, soft, non-distended, no guarding Neurologic: alert, no focal defects, other - alert and oriented x 1, moves all extremities. Skin: warm/dry, pallor Medical Decision Making Diagnostic Impression: Primary Impression: Altered level of consciousness Additional Impressions: UTI (urinary tract infection) Rule out COVID-19 ER Course MDM: 68-year-old female presented for altered mental status. Differential included UTI, pneumonia, metabolic encephalopathy, coronavirus infection to name a few. She did present from a [facility] facility. Febrile on arrival. Mildly hypoxic. Clinical course-IV, IV fluids, laboratory studies ordered. Urinalysis was consistent with infection. Rocephin given. Patient did come from a [facility] facility with a fever and O2 sat of 94% so I also ordered coronavirus testing. Labs - Laboratory Tests Test 09/17/19 04:00 09/18/19 08:05 White Blood Count 12.1 K/UL (4.8-10.8) H 10.3 K/UL (4.8-10.8) Red Blood Count 3.30 M/UL (4.20-5.40) L 3.10 M/UL (4.20-5.40) L Hemoglobin 10.3 G/DL (12.0-16.0) L 9.5 G/DL (12.0-16.0) L Hematocrit 29.5 % (37.0-47.0) L 27.5 % (37.0-47.0) L Mean Corpuscular Volume 89 FL (80-99) 89 FL (80-99) Mean Corpuscular Hemoglobin 31.2 PG (27.0-31.0) H 30.7 PG (27.0-31.0) Mean Corpuscular Hemoglobin Concent 34.9 G/DL (32.0-36.0) 34.6 G/DL (32.0-36.0) Red Cell Distribution Width 11.0 % (11.6-14.8) L 10.9 % (11.6-14.8) L Platelet Count 270 K/UL (150-450) 262 K/UL (150-450) Mean Platelet Volume 4.6 FL (6.5-10.1) L 5.3 FL (6.5-10.1) L Neutrophils (%) (Auto) 60.4 % (45.0-75.0) 66.2 % (45.0-75.0) Lymphocytes (%) (Auto) 26.8 % (20.0-45.0) 20.3 % (20.0-45.0) Monocytes (%) (Auto) 10.8 % (1.0-10.0) H 11.7 % (1.0-10.0) H Eosinophils (%) (Auto) 1.0 % (0.0-3.0) 1.1 % (0.0-3.0) Basophils (%) (Auto) 1.0 % (0.0-2.0) 0.6 % (0.0-2.0) Sodium Level 142 MMOL/L (136-145) 137 MMOL/L (136-145) Potassium Level 3.7 MMOL/L (3.5-5.1) 3.9 MMOL/L (3.5-5.1) Chloride Level 103 MMOL/L (98-107) 102 MMOL/L (98-107) Carbon Dioxide Level 32 MMOL/L (21-32) 28 MMOL/L (21-32) Anion Gap 7 mmol/L (5-15) 7 mmol/L (5-15) Blood Urea Nitrogen 36 mg/dL (7-18) H 23 mg/dL (7-18) H Creatinine 1.6 MG/DL (0.55-1.30) H 1.2 MG/DL (0.55-1.30) Estimated Glomerular Filtration Rate 32.1 mL/min (>60) 44.7 mL/min (>60) Glucose Level 280 MG/DL (74-106) H 226 MG/DL (74-106) H Hemoglobin A1c 8.9 % (4.3-6.0) H Uric Acid 9.0 MG/DL (2.6-7.2) H 7.2 MG/DL (2.6-7.2) Calcium Level 8.3 MG/DL (8.5-10.1) L 8.2 MG/DL (8.5-10.1) L Phosphorus Level 4.3 MG/DL (2.5-4.9) 2.7 MG/DL (2.5-4.9) Magnesium Level 2.0 MG/DL (1.8-2.4) 1.9 MG/DL (1.8-2.4) Iron Level 12 ug/dL (50-175) L Total Iron Binding Capacity 315 ug/dL (250-450) Percent Iron Saturation 4 % (15-50) L Unsaturated Iron Binding 303 ug/dL (112-346) Ferritin 104 NG/ML (8-388) Total Bilirubin 0.2 MG/DL (0.2-1.0) 0.1 MG/DL (0.2-1.0) L Aspartate Amino Transferase (AST) 30 U/L (15-37) 36 U/L (15-37) Alanine Aminotransferase (ALT) 25 U/L (12-78) 29 U/L (12-78) Alkaline Phosphatase 60 U/L (46-116) 47 U/L (46-116) Total Creatine Kinase 68 U/L (26-308) Total Protein 6.7 G/DL (6.4-8.2) 6.8 G/DL (6.4-8.2) Albumin 2.5 G/DL (3.4-5.0) L 2.5 G/DL (3.4-5.0) L Globulin 4.2 g/dL 4.3 g/dL Albumin/Globulin Ratio 0.6 (1.0-2.7) L 0.6 (1.0-2.7) L Triglycerides Level 160 MG/DL (30-150) H Cholesterol Level 154 MG/DL (< 200) LDL Cholesterol 89 mg/dL (<100) HDL Cholesterol 47 MG/DL (40-60) Cholesterol/HDL Ratio 3.3 (3.3-4.4) Vitamin B12 Level 564 PG/ML (193-986) Folate 19.0 NG/ML (8.6-58.9) Thyroid Stimulating Hormone (TSH) 0.723 uiU/mL (0.358-3.740) Troponin I 0.003 ng/mL (0.000-0.056) C-Reactive Protein, Quantitative 3.8 mg/dL (0.00-0.90) H Pro-B-Type Natriuretic Peptide 3009 pg/mL (0-125) H Plan-patient will be admitted to the telemetry floor under isolation for further care. Patient admitted under her primary care doctor. EKG Diagnostic Results Rate: normal Rhythm: NSR ST Segments: no acute changes Other Impression Right bundle branch block, left atrial enlargement, abnormal EKG Rhythm Strip Diag. Results EP Interpretation: yes Rate: 95 Rhythm: NSR, no ectopy Last Vital Signs Date Time Temp Pulse Resp B/P (MAP) Pulse Ox O2 Delivery O2 Flow Rate FiO2 09/16/19 18:04 103.5 97 20 150/111 (124) 94 Room Air Disposition: ADMITTED INPATIENT Condition: Serious Meño Mcmahon M.D. Sep 16, 2019 18:32
--- NOTE | 2019-09-16 18:38 | NUR ---
ED Nurse Note: blood, urine, and swabs sent to lab
[2019-09-16 18:50] LABS: BASOPHILS % (AUTO) 0.6 % (0.0-2.0); EOSINOPHILS % (AUTO) 0.4 % (0.0-3.0); HEMATOCRIT 31.9 % (37.0-47.0); LYMPHOCYTES % (AUTO) 14.9 % (20.0-45.0); MEAN CORPUSCULAR VOLUME 96 FL (80-99); MONOCYTES % (AUTO) 13.3 % (1.0-10.0); NEUTROPHILS % (AUTO) 70.8 % (45.0-75.0); PLATELET COUNT 289 K/UL (150-450); RED BLOOD COUNT 3.31 M/UL (4.20-5.40); RED CELL DISTRIBUTION WIDTH 12.2 % (11.6-14.8); WHITE BLOOD COUNT 14.4 K/UL (4.8-10.8)
[2019-09-16 18:51] LABS: APPEARANCE,URINE TURBID; BILIRUBIN, URINE NEGATIVE (NEGATIVE); COLOR,URINE PALE YELLOW; GLUCOSE, URINE (UA) NEGATIVE (NEGATIVE); KETONES,URINE NEGATIVE (NEGATIVE); LEUKOCYTE ESTERASE ,URINE 3+ (NEGATIVE); NITRITE,URINE NEGATIVE (NEGATIVE); PH,URINE 5 (4.5-8.0); PROTEIN,URINE 3+ (NEGATIVE); UROBILINOGEN,URINE NORMAL MG/DL (0.0-1.0)
--- NOTE | 2019-09-16 19:02 | NUR ---
HAND-OFF: Report given to NEFTALI bean. Pt in stable condition; plan of care endorsed.
[2019-09-16 19:03] LABS: ANION GAP 9 mmol/L (5-15); BLOOD UREA NITROGEN 36 mg/dL (7-18); CALCIUM 9.1 MG/DL (8.5-10.1); CARBON DIOXIDE 33 MMOL/L (21-32); CHLORIDE 98 MMOL/L (98-107); CREATININE 1.8 MG/DL (0.55-1.30); POTASSIUM 3.8 MMOL/L (3.5-5.1); SODIUM 140 MMOL/L (136-145)
[2019-09-16 19:04] LABS: INR 0.9 (0.9-1.1)
--- NOTE | 2019-09-16 19:05 | NUR ---
ED Nurse Note: received report from Sofía LINDSAY
[2019-09-16 19:10] VITALS: BP 103/61
[2019-09-16 19:16] LABS: ALANINE AMINOTRANSFERASE 29 U/L (12-78); ALBUMIN/GLOBULIN RATIO 0.6 (1.0-2.7); ALKALINE PHOSPHATASE 63 U/L (46-116); ASPARTATE AMINO TRANSFERASE 29 U/L (15-37); BILIRUBIN,TOTAL 0.2 MG/DL (0.2-1.0); CKMB 0.6 NG/ML (0.0-3.6); CREATINE KINASE 65 U/L (26-308)
[2019-09-16 20:45] VITALS: BP 98/65
--- NOTE | 2019-09-16 20:55 | NUR ---
ED Nurse Note: GAVE REPORT TO HARRY LINDSAY. PER HARRY, REQUESTED ATBX PRIOR TO TRANSFER. WILL ADMINISTER MED PRIOR TO TRASPORT. ERMD AWARE.
[2019-09-16] MEDS ORDERED: cefTRIAXone 1 GM in D5W 55 ML IVPB ONE (21:15)
--- NOTE | 2019-09-16 21:15 | NUR ---
TRANSFER TO FLOOR: Patient transferred to [facility] via rney in stable condition per transport 19 protocol as ordered, per dr. Rios. Report given to Xiomy LINDSAY. Belongings sent with patient
--- NOTE | 2019-09-16 21:30 | NUR ---
NURSE NOTES: Received report from NEFTALI Hooks. Patient trsnferred from ER to room 214-2 via gurney. Patient is awake, alert and oriented x 3. Oriented to room and telemetry unit. Placed maxillofacial prosthetics dentist and shows maxillofacial prosthetics dentist with no chest pain nor any discomfort noted at this time. Patient is on oxygen via nasal cannula @ 2Lpm with no SOB reported saturating 95%. Safety measures are in placed, bed in lowest and lock position, bed alarm is on, side rails up x 2. Call light and bedside table within reach. Will call MD for admission orders.
[2019-09-16 21:35] VITALS: BP 98/52
--- NOTE | 2019-09-16 22:25 | NUR ---
NURSE NOTES: Called Dr. Rios and left a message to get admission orders, awaiting for call back.
[2019-09-17] VITALS: BP 105/73
[2019-09-17 04:00] VITALS: BP 114/75
[2019-09-17 05:32] LABS: HEMATOCRIT 29.5 % (37.0-47.0); HEMOGLOBIN 10.3 G/DL (12.0-16.0); LYMPHOCYTES % (AUTO) 26.8 % (20.0-45.0); MEAN CORPUSCULAR VOLUME 89 FL (80-99); MONOCYTES % (AUTO) 10.8 % (1.0-10.0); NEUTROPHILS % (AUTO) 60.4 % (45.0-75.0); PLATELET COUNT 270 K/UL (150-450); WHITE BLOOD COUNT 12.1 K/UL (4.8-10.8)
[2019-09-17 05:51] LABS: ALANINE AMINOTRANSFERASE 25 U/L (12-78); ALBUMIN 2.5 G/DL (3.4-5.0); ALBUMIN/GLOBULIN RATIO 0.6 (1.0-2.7); ALKALINE PHOSPHATASE 60 U/L (46-116); ANION GAP 7 mmol/L (5-15); ASPARTATE AMINO TRANSFERASE 30 U/L (15-37); BILIRUBIN,TOTAL 0.2 MG/DL (0.2-1.0); BLOOD UREA NITROGEN 36 mg/dL (7-18); CALCIUM 8.3 MG/DL (8.5-10.1); CARBON DIOXIDE 32 MMOL/L (21-32); CHLORIDE 103 MMOL/L (98-107); CREATININE 1.6 MG/DL (0.55-1.30); POTASSIUM 3.7 MMOL/L (3.5-5.1); SODIUM 142 MMOL/L (136-145)
--- NOTE | 2019-09-17 07:30 | NUR ---
NURSE NOTES: Received pt from NEFTALI Dover, pt is awake and alert, pt has NC 1LMP. pt is on continues heart monitoring. pt has intact iv access LAC 20G SL. all needs attended, bed is locked and is in the lowest position, call light within easy reach. will continue to monitor.
--- NOTE | 2019-09-17 07:32 | NUR ---
HAND-OFF: Report given to NEFTALI Dumont Patient is in stable condition, no complaints of pain nor any discomfort. Plan of care endorsed.
[2019-09-17] MEDS: NovoLOG Insulin Flexpen SUBQ SCH ×4 (07:37→21:01)
[2019-09-17 08:00] VITALS: BP 139/77
[2019-09-17 08:02] LABS: CHOLESTEROL 154 MG/DL (< 200); HDL CHOLESTEROL 47 MG/DL (40-60); TRIGLYCERIDES 160 MG/DL (30-150)
[2019-09-17 08:17] LABS: CREATINE KINASE 68 U/L (26-308); FERRITIN 104 NG/ML (8-388); PHOSPHORUS 4.3 MG/DL (2.5-4.9)
--- NOTE | 2019-09-17 08:32 | Consultation ---
Consult Note Consult Note I am asked to evaluate the patient at the request of Dr. Rios for renal failure. Patient seen in room 214. Patient is confused and poor historian. Patient was examined Data was reviewed Patient is known to me from her previous admissions here at [facility]. Her last admission in May 2019 was reviewed. In the last admission the patient was discharged with creatinine of 1.1 Emergency room note: HPI: 68-year-old female history of diabetes, liver disease, metabolic encephalopathy, presented from shelter facility due to altered mental status. Apparently patient was at her normal state approximately 6 hours ago and then on a reassessment for dinnertime patient seem altered. Kos was checked and was elevated. Patient presented by EMS. On arrival patient alert to name only and unable to provide any further history. There is no report of fever cough or shortness of breath nausea or vomiting however patient was febrile on arrival. No Known Allergies (Unverified , 11/08/15) COVID-19 Screening Contact w/high risk pt: No Recent Travel to affected area: No Experienced COVID-19 symptoms?: Yes COVID-19 symptoms experienced: Fever (T>100.4F or >38C) COVID-19 Testing performed WRINGER AND SETTER: No Past Medical History: No History, Except For Hx Cardiac Problems: Yes - Hyperlipidemia, Atherosclerosis Hx Hypertension: Yes Hx COPD: Yes Hx Diabetes: Yes - acute pancreatitis Hx Gastrointestinal Problems: Yes - hepatic failure, GERD Hx Dementia: Yes Hx Seizures: Yes Hx Weakness: Yes . Assessment/Plan Acute renal failure, most likely dehydration Will watch for underlying chronic kidney disease. Anemia, etiology to be identified Toxic metabolic encephalopathy on presentation Diabetes mellitus [id number] with hemoglobin A1c of 8.9 History of COPD History of pulmonary hypertension History of UTI, evidence of UTI on this admission Patient currently full code however on previous admission was DNR Suggestions: Slow hydration Monitor renal parameters Monitor electrolytes Keep the blood pressure and blood sugar in check Urine studies Antibiotics as needed Per consultants I spent an additional 36 minutes on review of medical records including prior hospital records,consult notes, progress notes, procedures ,imaging labs, hemodynamics, and other clinical documentation. José Miguel Calvert MD Sep 17, 2019 08:32
[2019-09-17 09:33] LABS: % IRON SATURATION 4 % (15-50); IRON 12 ug/dL (50-175); TOTAL IRON BINDING CAPACITY 315 ug/dL (250-450)
[2019-09-17] MEDS: Nateglinide 60mg tab ORAL SCH ×3 (09:35→17:00)
[2019-09-17] MEDS: Docusate 100mg cap ORAL SCH ×3 (09:35→17:00)
[2019-09-17] MEDS: Levodopa/Carbidopa 25/100 tab ORAL SCH ×3 (09:35→17:00)
--- NOTE | 2019-09-17 09:41 | Diagnostic Imaging Report ---
Indication: Shortness of breath Technique: One view of the chest Comparison: To 07/02/2019 Findings: Lungs and pleural spaces are clear. Heart size is normal. Studies are demonstrated infiltrates are no longer evident Impression: No acute process
--- NOTE | 2019-09-17 10:47 | Cardiac Electrophysiology PN ---
Subjective Subjective [id number] Objective Last 24 Hour Vital Signs Date Time Temp Pulse Resp B/P (MAP) Pulse Ox O2 Delivery O2 Flow Rate FiO2 09/17/19 08:00 97.1 94 19 139/77 (97) 95 09/17/19 07:53 92 09/17/19 04:00 99.2 89 19 114/75 (88) 97 09/17/19 04:00 78 09/17/19 00:00 99.4 78 19 105/73 (84) 95 09/17/19 00:00 72 09/16/19 21:35 99.1 65 19 98/52 (67) 95 09/16/19 21:18 79 09/16/19 21:18 Nasal Cannula 2.0 09/16/19 21:15 99.0 85 20 98/65 98 Nasal Cannula 2.0 09/16/19 20:45 100.8 85 20 98/65 98 Nasal Cannula 2.0 09/16/19 19:10 102.1 87 20 103/61 97 Nasal Cannula 2.0 09/16/19 19:08 102.1 09/16/19 18:30 103.5 94 20 127/65 97 Nasal Cannula 2.0 09/16/19 18:30 94 20 Room Air 09/16/19 18:04 103.5 97 20 150/111 (124) 94 Room Air Intake and Output 09/16/19 09/17/19 19:00 07:00 Output Total 100 ml Balance -100 ml Output Urine Total 100 ml Laboratory Tests Test 09/16/19 18:04 09/16/19 18:14 09/16/19 18:30 09/17/19 04:00 Ammonia < 10 umol/L (11-32) L Lactic Acid Level 2.00 mmol/L (0.4-2.0) White Blood Count 14.4 K/UL (4.8-10.8) H 12.1 K/UL (4.8-10.8) H Red Blood Count 3.31 M/UL (4.20-5.40) L 3.30 M/UL (4.20-5.40) L Hemoglobin 10.0 G/DL (12.0-16.0) L 10.3 G/DL (12.0-16.0) L Hematocrit 31.9 % (37.0-47.0) L 29.5 % (37.0-47.0) L Mean Corpuscular Volume 96 FL (80-99) 89 FL (80-99) Mean Corpuscular Hemoglobin 30.2 PG (27.0-31.0) 31.2 PG (27.0-31.0) H Mean Corpuscular Hemoglobin Concent 31.3 G/DL (32.0-36.0) L 34.9 G/DL (32.0-36.0) Red Cell Distribution Width 12.2 % (11.6-14.8) 11.0 % (11.6-14.8) L Platelet Count 289 K/UL (150-450) 270 K/UL (150-450) Mean Platelet Volume 5.3 FL (6.5-10.1) L 4.6 FL (6.5-10.1) L Neutrophils (%) (Auto) 70.8 % (45.0-75.0) 60.4 % (45.0-75.0) Lymphocytes (%) (Auto) 14.9 % (20.0-45.0) L 26.8 % (20.0-45.0) Monocytes (%) (Auto) 13.3 % (1.0-10.0) H 10.8 % (1.0-10.0) H Eosinophils (%) (Auto) 0.4 % (0.0-3.0) 1.0 % (0.0-3.0) Basophils (%) (Auto) 0.6 % (0.0-2.0) 1.0 % (0.0-2.0) Prothrombin Time 10.1 SEC (9.30-11.50) Prothromb Time International Ratio 0.9 (0.9-1.1) Activated Partial Thromboplast Time 26 SEC (23-33) Urine Color Pale yellow Urine Appearance Turbid Urine pH 5 (4.5-8.0) Urine Specific [place] 1.015 (1.005-1.035) Urine Protein 3+ (NEGATIVE) H Urine Glucose (UA) Negative (NEGATIVE) Urine Ketones Negative (NEGATIVE) Urine Blood 4+ (NEGATIVE) H Urine Nitrite Negative (NEGATIVE) Urine Bilirubin Negative (NEGATIVE) Urine Urobilinogen Normal MG/DL (0.0-1.0) Urine Leukocyte Esterase 3+ (NEGATIVE) H Urine RBC 20-30 /HPF (0 - 2) H Urine WBC Tntc /HPF (0 - 2) H Urine Squamous Epithelial Cells Few /LPF (NONE/OCC) Urine Bacteria Many /HPF (NONE) H Sodium Level 140 MMOL/L (136-145) 142 MMOL/L (136-145) Potassium Level 3.8 MMOL/L (3.5-5.1) 3.7 MMOL/L (3.5-5.1) Chloride Level 98 MMOL/L (98-107) 103 MMOL/L (98-107) Carbon Dioxide Level 33 MMOL/L (21-32) H 32 MMOL/L (21-32) Anion Gap 9 mmol/L (5-15) 7 mmol/L (5-15) Blood Urea Nitrogen 36 mg/dL (7-18) H 36 mg/dL (7-18) H Creatinine 1.8 MG/DL (0.55-1.30) H 1.6 MG/DL (0.55-1.30) H Estimat Glomerular Filtration Rate 28.0 mL/min (>60) 32.1 mL/min (>60) Glucose Level 226 MG/DL (74-106) H 280 MG/DL (74-106) H Calcium Level 9.1 MG/DL (8.5-10.1) 8.3 MG/DL (8.5-10.1) L Magnesium Level 2.0 MG/DL (1.8-2.4) 2.0 MG/DL (1.8-2.4) Total Bilirubin 0.2 MG/DL (0.2-1.0) 0.2 MG/DL (0.2-1.0) Aspartate Amino Transf (AST/SGOT) 29 U/L (15-37) 30 U/L (15-37) Alanine Aminotransferase (ALT/SGPT) 29 U/L (12-78) 25 U/L (12-78) Alkaline Phosphatase 63 U/L (46-116) 60 U/L (46-116) Total Creatine Kinase 65 U/L (26-308) 68 U/L (26-308) Creatine Kinase MB 0.6 NG/ML (0.0-3.6) Creatine Kinase MB Relative Index 0.9 Troponin I 0.000 ng/mL (0.000-0.056) Total Protein 8.0 G/DL (6.4-8.2) 6.7 G/DL (6.4-8.2) Albumin 3.0 G/DL (3.4-5.0) L 2.5 G/DL (3.4-5.0) L Globulin 5.0 g/dL 4.2 g/dL Albumin/Globulin Ratio 0.6 (1.0-2.7) L 0.6 (1.0-2.7) L Hemoglobin A1c 8.9 % (4.3-6.0) H Uric Acid 9.0 MG/DL (2.6-7.2) H Phosphorus Level 4.3 MG/DL (2.5-4.9) Iron Level 12 ug/dL (50-175) L Total Iron Binding Capacity 315 ug/dL (250-450) Percent Iron Saturation 4 % (15-50) L Unsaturated Iron Binding 303 ug/dL (112-346) Ferritin 104 NG/ML (8-388) Triglycerides Level 160 MG/DL (30-150) H Cholesterol Level 154 MG/DL (< 200) LDL Cholesterol 89 mg/dL (<100) HDL Cholesterol 47 MG/DL (40-60) Cholesterol/HDL Ratio 3.3 (3.3-4.4) Vitamin B12 Level 564 PG/ML (193-986) Folate 19.0 NG/ML (8.6-58.9) Thyroid Stimulating Hormone (TSH) 0.723 uiU/mL (0.358-3.740) Microbiology Date/Time Source Procedure Growth Status 09/16/19 18:30 Nasopharynx Coronavirus COVID-19 PCR ([facility]) - Final Complete 09/16/19 18:30 Urine,Clean Catch Urine Culture - Preliminary Gram Negative Patrick Resulted Noe Galdamez MD Sep 17, 2019 10:47
--- NOTE | 2019-09-17 11:04 | Consultation ---
History of Present Illness General Chief Complaint: Altered Level of Consciousness Present Illness Allergies: Coded Allergies: No Known Allergies (Unverified , 11/08/15) Medication History Scheduled Acidophilus/Bulgaricus (Floranex Granules Packet), 1 EACH GT TID, (Reported) Amantadine HCl (Amantadine), 100 MG ORAL TWICE A DAY, (Reported) Ascorbic Acid* (Ascorbic Acid*), 500 MG GT DAILY, (Reported) Ascorbic Acid* (Vitamin C*), 500 MG ORAL DAILY, (Reported) Atorvastatin Calcium* (Atorvastatin Calcium*), 10 MG GT BEDTIME, (Reported) Carbidopa/Levodopa 25-100 Mg* (Sinemet 25-100 Mg Tablet*), 1 TAB ORAL THREE TIMES A DAY, (Reported) Citalopram Hydrobromide (Citalopram Hbr), 10 MG ORAL DAILY, (Reported) Citalopram Hydrobromide* (Celexa*), 20 MG ORAL DAILY, (Reported) Citalopram Hydrobromide* (Citalopram Hbr*), 20 MG ORAL DAILY, (Reported) Clonidine Hcl* (Catapres*), 0.1 MG GT EVERY 6 HOURS, (Reported) Docusate Sodium* (Docusate Sodium*), 100 MG GT DAILY, (Reported) Docusate Sodium* (Colace*), 100 MG ORAL THREE TIMES A DAY, (Reported) Ferrous Sulfate* (Ferrous Sulfate*), 325 MG ORAL DAILY, (Reported) Furosemide* (Lasix*), 40 MG ORAL DAILY, (Reported) Furosemide* (Lasix*), 40 MG ORAL DAILY, (Reported) Furosemide* (Lasix*), 40 MG ORAL DAILY, (Reported) Gabapentin* (Neurontin*), 200 MG GT THREE TIMES A DAY, (Reported) Insulin Regular, Human* (Novolin R*), 0 SUBQ NEEDED, (Reported) Magnesium Hydroxide (Milk of Magnesia), 30 ML ORAL DAILY, (Reported) Metformin Hcl* (Metformin Hcl*), 1,000 MG GT BID, (Reported) Nateglinide* (Starlix*), 60 MG ORAL THREE TIMES A DAY, (Reported) Pantoprazole* (Protonix*), 40 MG ORAL EVERY 12 HOURS, (Reported) Polyethylene Glycol 3350* (Miralax*), 17 GM ORAL DAILY, (Reported) Valproic Acid (Valproic Acid), 125 MG GT EVERY 12 HOURS, (Reported) Scheduled PRN Lactulose (Lactulose*), 15 ML GT BID PRN for Constipation, (Reported) Miscellaneous Medications Acetaminophen (Acetaminophen), 160 MG GT, (Reported) B Complex & C No.20/Folic Acid (Virt-Caps Softgel), 1 MG PO, (Reported) Bisacodyl (Dulcolax), 10 MG RC, (Reported) Glucagon,Human Recombinant (Glucagen), 1 MG IJ, (Reported) Insulin Aspart (Novolog Flexpen), (Reported) Insulin Detemir (Levemir Flexpen), 10 SUBQ, (Reported) Insulin Lispro (Humalog), 0 SUBQ, (Reported) Multivit-Min/Iron Fum/Folic AC (Qjtyp-Dwpnfik-Xkxounkh Tablet), 1 EACH PO, ( Reported) Valproate Sodium (Valproic Acid), 250 MG PO, (Reported) Valproic Acid (Valproic Acid), 500 MG PO, (Reported) Patient History Healthcare decision maker Resuscitation status Advanced Directive on File Physical Exam Last 24 Hour Vital Signs Date Time Temp Pulse Resp B/P (MAP) Pulse Ox O2 Delivery O2 Flow Rate FiO2 09/17/19 08:00 97.1 94 19 139/77 (97) 95 09/17/19 07:53 92 09/17/19 04:00 99.2 89 19 114/75 (88) 97 09/17/19 04:00 78 09/17/19 00:00 99.4 78 19 105/73 (84) 95 09/17/19 00:00 72 09/16/19 21:35 99.1 65 19 98/52 (67) 95 09/16/19 21:18 79 09/16/19 21:18 Nasal Cannula 2.0 09/16/19 21:15 99.0 85 20 98/65 98 Nasal Cannula 2.0 09/16/19 20:45 100.8 85 20 98/65 98 Nasal Cannula 2.0 09/16/19 19:10 102.1 87 20 103/61 97 Nasal Cannula 2.0 09/16/19 19:08 102.1 09/16/19 18:30 103.5 94 20 127/65 97 Nasal Cannula 2.0 09/16/19 18:30 94 20 Room Air 09/16/19 18:04 103.5 97 20 150/111 (124) 94 Room Air Intake and Output 09/16/19 09/17/19 19:00 07:00 Output Total 100 ml Balance -100 ml Output Urine Total 100 ml Laboratory Tests Test 09/16/19 18:04 09/16/19 18:14 09/16/19 18:30 09/17/19 04:00 Ammonia < 10 umol/L (11-32) L Lactic Acid Level 2.00 mmol/L (0.4-2.0) White Blood Count 14.4 K/UL (4.8-10.8) H 12.1 K/UL (4.8-10.8) H Red Blood Count 3.31 M/UL (4.20-5.40) L 3.30 M/UL (4.20-5.40) L Hemoglobin 10.0 G/DL (12.0-16.0) L 10.3 G/DL (12.0-16.0) L Hematocrit 31.9 % (37.0-47.0) L 29.5 % (37.0-47.0) L Mean Corpuscular Volume 96 FL (80-99) 89 FL (80-99) Mean Corpuscular Hemoglobin 30.2 PG (27.0-31.0) 31.2 PG (27.0-31.0) H Mean Corpuscular Hemoglobin Concent 31.3 G/DL (32.0-36.0) L 34.9 G/DL (32.0-36.0) Red Cell Distribution Width 12.2 % (11.6-14.8) 11.0 % (11.6-14.8) L Platelet Count 289 K/UL (150-450) 270 K/UL (150-450) Mean Platelet Volume 5.3 FL (6.5-10.1) L 4.6 FL (6.5-10.1) L Neutrophils (%) (Auto) 70.8 % (45.0-75.0) 60.4 % (45.0-75.0) Lymphocytes (%) (Auto) 14.9 % (20.0-45.0) L 26.8 % (20.0-45.0) Monocytes (%) (Auto) 13.3 % (1.0-10.0) H 10.8 % (1.0-10.0) H Eosinophils (%) (Auto) 0.4 % (0.0-3.0) 1.0 % (0.0-3.0) Basophils (%) (Auto) 0.6 % (0.0-2.0) 1.0 % (0.0-2.0) Prothrombin Time 10.1 SEC (9.30-11.50) Prothromb Time International Ratio 0.9 (0.9-1.1) Activated Partial Thromboplast Time 26 SEC (23-33) Urine Color Pale yellow Urine Appearance Turbid Urine pH 5 (4.5-8.0) Urine Specific Duchesne 1.015 (1.005-1.035) Urine Protein 3+ (NEGATIVE) H Urine Glucose (UA) Negative (NEGATIVE) Urine Ketones Negative (NEGATIVE) Urine Blood 4+ (NEGATIVE) H Urine Nitrite Negative (NEGATIVE) Urine Bilirubin Negative (NEGATIVE) Urine Urobilinogen Normal MG/DL (0.0-1.0) Urine Leukocyte Esterase 3+ (NEGATIVE) H Urine RBC 20-30 /HPF (0 - 2) H Urine WBC Tntc /HPF (0 - 2) H Urine Squamous Epithelial Cells Few /LPF (NONE/OCC) Urine Bacteria Many /HPF (NONE) H Sodium Level 140 MMOL/L (136-145) 142 MMOL/L (136-145) Potassium Level 3.8 MMOL/L (3.5-5.1) 3.7 MMOL/L (3.5-5.1) Chloride Level 98 MMOL/L (98-107) 103 MMOL/L (98-107) Carbon Dioxide Level 33 MMOL/L (21-32) H 32 MMOL/L (21-32) Anion Gap 9 mmol/L (5-15) 7 mmol/L (5-15) Blood Urea Nitrogen 36 mg/dL (7-18) H 36 mg/dL (7-18) H Creatinine 1.8 MG/DL (0.55-1.30) H 1.6 MG/DL (0.55-1.30) H Estimat Glomerular Filtration Rate 28.0 mL/min (>60) 32.1 mL/min (>60) Glucose Level 226 MG/DL (74-106) H 280 MG/DL (74-106) H Calcium Level 9.1 MG/DL (8.5-10.1) 8.3 MG/DL (8.5-10.1) L Magnesium Level 2.0 MG/DL (1.8-2.4) 2.0 MG/DL (1.8-2.4) Total Bilirubin 0.2 MG/DL (0.2-1.0) 0.2 MG/DL (0.2-1.0) Aspartate Amino Transf (AST/SGOT) 29 U/L (15-37) 30 U/L (15-37) Alanine Aminotransferase (ALT/SGPT) 29 U/L (12-78) 25 U/L (12-78) Alkaline Phosphatase 63 U/L (46-116) 60 U/L (46-116) Total Creatine Kinase 65 U/L (26-308) 68 U/L (26-308) Creatine Kinase MB 0.6 NG/ML (0.0-3.6) Creatine Kinase MB Relative Index 0.9 Troponin I 0.000 ng/mL (0.000-0.056) Total Protein 8.0 G/DL (6.4-8.2) 6.7 G/DL (6.4-8.2) Albumin 3.0 G/DL (3.4-5.0) L 2.5 G/DL (3.4-5.0) L Globulin 5.0 g/dL 4.2 g/dL Albumin/Globulin Ratio 0.6 (1.0-2.7) L 0.6 (1.0-2.7) L Hemoglobin A1c 8.9 % (4.3-6.0) H Uric Acid 9.0 MG/DL (2.6-7.2) H Phosphorus Level 4.3 MG/DL (2.5-4.9) Iron Level 12 ug/dL (50-175) L Total Iron Binding Capacity 315 ug/dL (250-450) Percent Iron Saturation 4 % (15-50) L Unsaturated Iron Binding 303 ug/dL (112-346) Ferritin 104 NG/ML (8-388) Triglycerides Level 160 MG/DL (30-150) H Cholesterol Level 154 MG/DL (< 200) LDL Cholesterol 89 mg/dL (<100) HDL Cholesterol 47 MG/DL (40-60) Cholesterol/HDL Ratio 3.3 (3.3-4.4) Vitamin B12 Level 564 PG/ML (193-986) Folate 19.0 NG/ML (8.6-58.9) Thyroid Stimulating Hormone (TSH) 0.723 uiU/mL (0.358-3.740) Microbiology Date/Time Source Procedure Growth Status 09/16/19 18:30 Nasopharynx Coronavirus COVID-19 PCR ([facility]) - Final Complete 09/16/19 18:30 Urine,Clean Catch Urine Culture - Preliminary Gram Negative Patrick Resulted Height (Feet): 5 Height (Inches): 5.00 Weight (Pounds): 140 Medications Current Medications Medications (Trade) Dose Ordered Sig/Tenzin Route PRN Reason Start Time Stop Time Status Last Admin Dose Admin Acetaminophen (Tylenol) 650 mg Q4H PRN ORAL Temp >100.5 09/16/19 23:00 10/16/19 22:59 Atorvastatin Calcium (Lipitor) 10 mg BEDTIME ORAL 09/17/19 21:00 12/16/19 20:59 Carbidopa/Levodopa (Sinemet 25/100) 1 tab THREE TIMES A DAY ORAL 09/17/19 09:00 10/17/19 08:59 09/17/19 09:35 Ceftriaxone Sodium 1 gm/ Dextrose 55 ml @ 110 mls/hr Q24H IVPB 09/17/19 21:00 09/24/19 20:59 Dextrose (Dextrose 50%) 25 ml Q30M PRN IV Hypoglycemia 09/16/19 23:00 12/15/19 22:59 Dextrose (Dextrose 50%) 50 ml Q30M PRN IV Hypoglycemia 09/16/19 23:00 12/15/19 22:59 Docusate Sodium (Colace) 100 mg THREE TIMES A DAY ORAL 09/17/19 09:00 10/17/19 08:59 09/17/19 09:35 Escitalopram Oxalate (Lexapro) 10 mg DAILY ORAL 09/17/19 09:00 10/17/19 08:59 09/17/19 09:35 Insulin Aspart (NovoLOG) BEFORE MEALS AND HS SUBQ 09/17/19 06:30 12/16/19 06:29 09/17/19 07:37 Nateglinide (Starlix) 60 mg THREE TIMES A DAY ORAL 09/17/19 09:00 10/17/19 08:59 09/17/19 09:35 Pantoprazole (Protonix) 40 mg EVERY 12 HOURS ORAL 09/17/19 09:00 10/17/19 08:59 09/17/19 09:35 Sodium Chloride 1,000 ml @ 75 mls/hr [id number] IV 09/17/19 08:45 10/17/19 08:44 09/17/19 09:35 Assessment/Plan Assessment/Plan: Hematology Consultation REQ MD: Amelie Ring RFC: Anemia of iron deficiency DOS: 09/16/2019 HPI 68y old female, presents with vomiting and ams, she is well known to me, with a hx of liver disease and prior adm for similar issues. The patient has a history of insulin-dependent diabetes. She believes her blood sugars have been okay. She denies abdominal pain. She has been moving her bowels without difficulty. She denies any fevers or chills. No sore throat, chest pain, palpitations, shortness of breath, cough, joint pain, rashes, depression, anxiety, visual changes, dizziness, headache. Currently hgb approx 10. Last admitted 2019 for sepsis. Charge diagnoses: 1. Sepsis possibly from urinary tract infection. 2. Urinary tract infection with Escherichia coli extended-spectrum beta-lactamase. 3. Seizure disorder. 4. Diabetes mellitus with hyperglycemia. 5. Dysphagia status post percutaneous endoscopic gastrostomy. 6. Chronic encephalopathy. 7. Hyperlipidemia with type 2 diabetes. 8. Elevated liver function tests with ultrasound finding of cholelithiasis and normal bilirubin. 9. Scab on the right ear and stage I decubitus ulcer on the sacral coccygeal area present on admission. Allergies: No Known Allergies (Unverified , 11/08/15) Patient History Past Medical History: see triage record, old chart reviewed Past Surgical History: other - Gastrostomy tube Social History: Denies: smoking, alcohol use, drug use Social History Narrative nursing home facility Now: No Reviewed Nursing Documentation: PMH: Agreed; PSxH: Agreed Nursing Documentation-PMH Hx Cardiac Problems: Yes - tachycardia, aterosclerosis of aorta Hx Hypertension: Yes Hx COPD: Yes Hx Diabetes: Yes - anemia Hx Gastrointestinal Problems: Yes - hepatic failure, GERD History Of Psychiatric Problem: Yes - major depression, bipolar Hx Dementia: Yes Hx Seizures: Yes Review of Systems All Other Systems: negative except mentioned in HPI Physical Exam Vitals: reviewed General: alert, non-toxic, thin, other - Frail, Chronically Ill Head: normocephalic, atraumatic Heent: bilateral eye normal inspection, bilateral eye PERRl Respiratory: lungs clear, normal breath sounds, Cardiovascular: regular rate, rhythm, no edema Gi: non tender, soft, decreased bowel sounds Gu: no CVA tenderness Msk: no calf tenderness, + Atrophy Neuro: alert, sensory intact, w motor weakness Psychiatric: mood/affect normal Skin: ++ Du Labs: noted Imaging: reviewed Assessment and Recs: # Anemia of iron deficiency -- hgb remains low, anemia panel reviewed, ferritin in prior was 20 --> consider iron as n eeded, if low will order ferritin --> cea is 4.9 --> no hemolysis is seen --> r/o gi bleed, gi is on board # Leukocytosis with Sepsis likely due to uti --> has now improved --> ceftriaxone started --> as per Dr. Martinez # Ryan on admission --> per renal on ivf --> per Dr. Calvert # Elevated lactic acid level --> sp abx lecquin # Type 2 diabetes mellitus --> acucchecks qac and qhs --> iss, consider endo # Stage I decubitus ulcer sacrum # Dvt ppx scds Appreciate consultation and dw Danie Pradhan MD Sep 17, 2019 11:04
[2019-09-17 12:00] VITALS: BP 135/68
--- NOTE | 2019-09-17 14:03 | NUR ---
CASE MANAGEMENT:REVIEW 68 YR OLD FEMALE BIBA FROM [facility] CC; ALOC SI: AMS 103.5 97 20 150/111 91% ON RA WBC+14.4 H/H-10.0/31.9 CO2+33 BUN+36 CR+1.8 IS: 1L NS BOLUS TYLENOL NM IV ROCEPHIN COVID 19 SWAB URINE CX BLOOD CX CHEST XRAY : TO TELEMETRY DCP; FROM [facility] PLAN: ABD US ISOLATION Addendum: 09/17/19 at 1417 by SAMSON ELLIS, BASSAM SIFUENTESN INTERQUAL CRITERIA MET
[2019-09-17 16:00] VITALS: BP 127/69
--- NOTE | 2019-09-17 16:59 | NUR ---
NURSE NOTES:Pt presented on admission with multiple pressure injuries. Non-Blanching erythema with combined red rash noted to Sacrum ,R and L Buttocks. denuded area at cleft. Non-Blanching erythema noted to R and L Heels. Tx.Plan: Apply Triad Paste to Buttocks. Cover Sacral area with Optifoam drsg. Change every 3 days and prn. Apply Cavilon Skin Barrier to both heels. Cover each heel with Optifoam drsg. Change every 7 days and prn. Reposition at least every 2hours or as tolerated. Off-load heels with Pillow.
--- NOTE | 2019-09-17 17:00 | Consultation ---
DATE OF CONSULTATION: 09/17/2019 INFECTIOUS DISEASE CONSULTATION CONSULTING PHYSICIAN: Rogelio Martinez MD. PRIMARY ATTENDING: Amelie Rios MD. REASON FOR CONSULT: UTI. HISTORY OF PRESENT ILLNESS: This is a 68-year-old white female admitted yesterday with altered mental status. Patient had no fever or coughing, but has leukocytosis of 14.4 in the ER. PAST MEDICAL HISTORY: Significant for diabetes mellitus, hypertension, COPD, major depression, anemia, dementia, pulmonary hypertension on diastolic CHF. Patient had an admission to [facility] in April of 2019. ALLERGIES: No known drug allergies. MEDICATIONS: Atorvastatin, ceftriaxone, Lexapro, Starlix, Sinemet, , insulin, Tylenol. SOCIAL HISTORY: [facility] resident. Former smoker. . Has no child. No history of alcohol or drug abuse. REVIEW OF SYSTEMS: Patient has no fever. No chills. No coughing. No shortness of breath. No nausea. No vomiting. No problem passing urine. PHYSICAL EXAMINATION: VITAL SIGNS: Temperature 97.1, pulse 94, blood pressure 139/77. Had fever of 103.5 at the time of admission. GENERAL APPEARANCE: No acute distress. HEAD AND NECK: Getting oxygen by nasal cannula. Has no teeth and no denture. HEART: Normal rate. LUNGS: Clear. ABDOMEN: Soft, nontender. EXTREMITIES: Has no edema. NEUROLOGIC: Awake, alert, responsive. LABORATORY AND DIAGNOSTIC DATA: WBC today is 12.1, hemoglobin 10.3, hematocrit 29.5, platelets 270. Sodium 142, potassium 3.7, chloride 103, bicarb 32, BUN 36, creatinine 1.6, glucose 280. Hemoglobin A1c 8.9. Uric acid is 9. Chest x-ray showed no acute process. UA showed wbc too numerous to count, rbc 20 to 30, bacteria many, nitrite negative. COVID-19 test is negative. Urine culture growing gram-negative rods. IMPRESSION: Sepsis with leukocytosis and fever. Likely has UTI. Has diabetes mellitus with hyperglycemia, history of COPD, hypertension, pulmonary hypertension, diastolic CHF, Parkinson disease, anemia, major depression. RECOMMENDATION: We will continue ceftriaxone. We will order abdominal ultrasound because of recurrent urinary infection. We will follow up the cultures. At the end of my exam, I thank Dr. Rios for involving me in the care of this patient. Rogelio Martinez M.D. DR: ISAIAH JOB#: [id number] CC: LAVELL
--- NOTE | 2019-09-17 17:00 | Consultation ---
DATE OF CONSULTATION: 09/17/2019 CARDIOLOGY CONSULTATION CONSULTING PHYSICIAN: Noe Galdamez MD. REFERRING PHYSICIAN: Amelie Rios MD. REASON FOR CONSULTATION: Management of hypertension and tachycardia. HISTORY OF PRESENT ILLNESS: The patient is a 68-year-old lady with history of diabetes, , metabolic encephalopathy, was brought from the shelter facility for altered mental status. The patient was admitted and had temperature of a 100.4. The patient is admitted to rule out COVID-19. Cardiology consultation was obtained for further evaluation. REVIEW OF SYSTEMS: Negative other than what is mentioned in the history of present illness. PAST MEDICAL HISTORY: As mentioned above. FAMILY HISTORY: Noncontributory. SOCIAL HISTORY: Denies smoking or drinking alcohol. PHYSICAL EXAMINATION: VITAL SIGNS: Blood pressure 139/77, pulse 94, respirations 18, and temperature 97.1. HEAD AND NECK: Showed no JVD. LUNGS: Clear. CARDIOVASCULAR: Shows regular S1 and S2 with no gallop. ABDOMEN: Soft. EXTREMITIES: No pitting edema. LABORATORY AND DIAGNOSTIC DATA: Labs show white count of 12, hemoglobin 10.3, hematocrit 29, and platelet count is 270,000. Sodium 142, potassium is 3.7, BUN of 36, creatinine of 1.6, glucose of 280. Troponin is negative. Triglycerides 160. ASSESSMENT AND PLAN: 1. Hypertension. Keep the patient off antihypertensive agents as the patient was dehydrated and blood pressure was low. 2. Hyperlipidemia, on Lipitor. 3. Fever. The patient to be ruled out for COVID. 4. Diabetes. Thank you very much, Dr. Rios, for allowing me to participate in the care of this patient. Please do not hesitate to contact me for any questions regarding my evaluation. Noe Galdamez M.D. DR: ERLIN JOB#: [id number] CC:
--- NOTE | 2019-09-17 17:00 | NUR ---
NURSE NOTES: ECG done and sent to Dr Fowler, no new order to RN. Will continue to monitor.
--- NOTE | 2019-09-17 17:30 | NUR ---
NURSE NOTES: ABD US done and diet started for pt per Dr Rios, will continue to monitor.
--- NOTE | 2019-09-17 17:52 | NUR ---
[employer] BEDSIDE SWALLOW EVALUATION (Please see care activity section for complete report) PATIENT REFERRED FOR BEDSIDE SWALLOW EVALUATION BY DR. MUNIZ DYSPHAGIA RISK FACTORS FOR THIS 68 Y.O. FEMALE: ACUTE ISSUES: AMS, Anemia, MER, Leukocytosis with Sepsis with leukocytosis likely due to UTI, Fever, Parkinson disease, Major Depression, PIU COVID 19. H/O: COPD, Hepatic failure without coma, acute pancreatitis, hereditary and idiopathic neuropathy, epilepsy, DM2 with hyperglycemia, Dysphagia s/p PEG, Chronic encephalopathy, Major depression, Dementia, pulmonary HTN on diastolic CHF, hyperlipidemia. RELEVANT MEDS: Protonix (GERD). PLOF: Patient previously resided at a senior care facility; previously consume puree solids with thin liquids. RN STATES: Patient did not exhibit any overt s/s of aspiration with puree apple sauce with medication, however, when given thin liquids, Patient observed with immediate overt s/s of aspiration. Therefore, [employer] referred for swallow evaluation. POLST: FULL CODE. VITALS ON 1L NASAL CANNULA: HR: 73; RR: 18; SP02 95% -PATIENT IS ALERT, SEEN AT BEDSIDE, ABLE TO EXPRESS WANTS AND NEEDS VERBALLY, SPEECH AND LANGUAGE INTACT. -ORAL HYGIENE APPEARS SLIGHTLY REDUCED, ORAL MOTOR ROM AND COORDINATION SLIGHTLY SLOW; PATIENT DOES FOLLOW 1-2 STEP COMMANDS WITHOUT CUES. -WHEN ASKED IF PATIENT HAS ANY H/O SWALLOWING DIFFICULTIES, PATIENT STATES NO. SUSPECT PATIENT WITH POOR INSIGHT INTO DEFICITS VERSUS FORGETFUL (PREVIOUSLY ON MODIFIED DIET CONSISTENCY). INITIAL IMPRESSIONS MILD TO MODERATE OROPHARYNGEAL DYSPHAGIA (PHARYNGEAL PHASE APPEARS WORSE VERSUS ORAL PHASE) WITH INCREASED ORAL PREP AND OP TRANSIT TIMES, COMPOUNDED BY H/O COGNITIVE BEHAVIORAL DEFICITS (AMS, PARKINSON DEMENTIA), WITH LARYNGEAL ELEVATION PRESENT UPON PALPATION APPEARS DELAYED. NO OVERT S/S OF ASPIRATION WITH PUREE SOLIDS, NECTAR THICK LIQUIDS (VIA TEASPOON OR CUP) OR THIN LIQUIDS VIA TEASPOON ONLY. PO TRIALS: -Given Thin liquids via teaspoon, no overt s/s of aspiration, laryngeal elevation appears reduced and delayed, multiple swallows noted. -Given Thin Liquids via cup sip, poor oral motor control of larger thin liquid bolus; immediate overt s/s of aspiration via coughing, coughs appear weak and ineffective, SP02 dropped to 92%; SP02 returned to baseline when coughing ceased. -Given Puree Solids via teaspoon, timely A-P transit to BOT, no oral residuals, laryngeal elevation appears reduced and delayed. -PATIENT IS A HIGH RISK FOR ASPIRATION AND POOR PO INTAKE DUE TO H/O DYSPHAGIA AND COGNITIVE BEHAVIORAL DEFICITS (H/O PARKINSON DEMENTIA; AMS) After Patient was given nectar thick liquids, Patient states CLEAR preference against thickened liquids, further, reports not wanting nectar thickened liquids due to taste preference. -PATIENT IS A HIGH RISK FOR POOR PO INTAKE/DEHYDRATION IF GIVEN ONLY NECTAR THICK LIQUIDS PER PATIENT PREFERENCE. RECOMMENDATIONS 1. Diet: Moist Puree with Burney Thick Liquids, OK to given Patient thin liquids via TEASPOON for oral comfort and to assure hydration status. Diet type/supplements per RD. Patient requires 1 to 1 careful handfeeding at a slow rate, no straws. 2. Med Management: As tolerated. 3. [employer] to f/u for dysphagia management and tx 3x a week x 1 week 4. Please assist Patient with oral care BID (+tongue) with suction. [employer] plans to f/u with Patient for diet tolerance, dysphagia therapy, and monitor candidacy for MBSS while in-house. [employer] made RN aware of results, recommendations, and posted aspiration precautions sign above Patient's HOB. Thank you for this referral! [phone] for questions
--- NOTE | 2019-09-17 18:23 | Diagnostic Imaging Report ---
EXAM: US Abdomen Complete CLINICAL HISTORY: INFECT TECHNIQUE: Real-time ultrasound of the abdomen with image documentation. COMPARISON: FINDINGS: Liver: Unremarkable. No mass. No intrahepatic bile duct dilation. Gallbladder: Contracted gallbladder, packed with stones. Gallbladder wall is not well assessed. Drop Hammer Mechanic makes no mention of Vargas sign in the note. Common bile duct: Unremarkable as visualized. No stones. No dilation. Pancreas: Unremarkable as visualized. Kidneys: Unremarkable. No stones. No solid mass. No hydronephrosis. Spleen: Unremarkable. No splenomegaly. Aorta: Unremarkable. No aneurysm. Inferior vena cava: Unremarkable. IMPRESSION: Contracted gallbladder, packed with stones. Gallbladder wall is not well assessed. Drop Hammer Mechanic makes no mention of Vargas sign in the note.
--- NOTE | 2019-09-17 19:41 | NUR ---
HAND-OFF: Report given to NEFTALI Farr. pt is awake and astable, Endorsed plan of care.
--- NOTE | 2019-09-17 19:50 | NUR ---
NURSE NOTES: Received pt from NEFTALI Dumont. Pt awake, alert, and talkative. Bed in lowest position. Call light within reach. Will continue to monitor.
[2019-09-17 20:00] VITALS: BP 116/70
[2019-09-17] MEDS: cefTRIAXone 1 GM in D5W 55 ML IVPB SCH (20:53)
--- NOTE | 2019-09-17 22:45 | History and Physical Report ---
DATE OF ADMISSION: 09/16/2019 HISTORY OF PRESENT ILLNESS: Poor historian. The patient is basically coming in and being admitted for altered mental status. The patient basically denies nausea, vomiting, or diarrhea. The patient feels extremely weak and also the patient is being admitted. Denies nausea, vomiting, or diarrhea. Denies fever or chills. The patient is being admitted for leukocytosis, acute renal failure, urinary tract infection, and rule out COVID. The patient also came in with fever from the [facility]. The patient also was borderline hypoxia and also being admitted for urinary tract infection. PAST MEDICAL HISTORY: Significant for liver disease, GI bleeding, diabetes, history of metabolic encephalopathy, history of hyperlipidemia, cardiac atherosclerosis, history of COPD and hypertension, history of GERD, history of seizure, history of chronic pain syndrome, NIDDM, constipation, and mood disorder as well as Parkinson disease. PAST SURGICAL HISTORY: Denies. FAMILY HISTORY: Noncontributory. SOCIAL HISTORY: Denies history of smoking. Denies history of alcohol abuse. Denies any drug abuse. She comes from a group home. MEDICATIONS: The patient takes vitamin C, docusate, gabapentin, insulin, Protonix, and MiraLAX as well as valproic acid and Protonix. REVIEW OF SYSTEMS: HEENT: Denies headaches. RESPIRATORY: Denies shortness of breath. Denies cough. CARDIOVASCULAR: Denies chest pain. GASTROINTESTINAL: No nausea, vomiting, or diarrhea. EXTREMITIES: Does have some mild pain, feels weak, poor historian. PHYSICAL EXAMINATION: VITAL SIGNS: Temperature is 99.2, pulse is 78, and blood pressure 114/75. HEENT: PERRLA. NECK: Supple. CHEST: Clear to auscultation. CARDIOVASCULAR: Regular rate and rhythm. No murmurs or extra sounds. GASTROINTESTINAL: Soft, nontender, nondistended. No organomegaly. EXTREMITIES: No edema. NEUROLOGICAL: Has generalized weakness. Poor historian. LABORATORY DATA: WBC of 14.4, hemoglobin of 10, platelets of 289. Sodium 140, potassium 3.8, BUN of 36, creatinine 1.6, glucose of 226. ASSESSMENT AND PLAN: 1. Azotemia 2. Dehydration. 3. Rule out COVID. 4. Altered mental status. 5. UTI. 6. Fever. 7. Sepsis. 8. Borderline hypoxia. I have consulted Dr. Ybarra, Dr. Calvert, Dr. Galdamez, and Dr. Rogelio Martinez to help with the management of the above mentioned abnormalities and symptoms and lab abnormalities as well as imaging abnormalities. Antibiotics per Dr. Rogelio Martinez. Amelie Rios M.D. DR: Hayde JOB#: [id number] CC:
[2019-09-18] VITALS: BP 111/71
[2019-09-18 04:00] VITALS: BP 121/72
--- NOTE | 2019-09-18 04:30 | Consultation ---
DATE OF CONSULTATION: 09/17/2019 CONSULTING PHYSICIAN: Stephanie Ybarra MD HISTORY OF PRESENT ILLNESS: The patient is an 86-year-old female with a history of UTI, altered mental status, fever, and hypertension who is coming from [place] and is well known to me. The patient is awake; however, is a poor historian due to cognitive impairment. The patient is waxing and waning consciousness with memory impairment. PAST PSYCHIATRIC HISTORY: Dementia, depression, and anxiety. PAST MEDICAL HISTORY: Significant for diabetic retinopathy and hypertension. ALLERGIES: No known drug allergies. SUBSTANCE ABUSE HISTORY: No known history of illicit drug use or alcohol. MENTAL STATUS EXAMINATION: The patient is alert and oriented times self. Mood is anxious. Affect is flat. Thought process, there is a paucity of thought content. Thought content, no suicidal or homicidal ideation. Cognition is impaired. Insight and judgment are impaired. ASSESSMENT: [place] I Acute encephalopathy. Major depressive disorder. Anxiety disorder. [place] II Deferred. [place] III As above. [place] IV Low. [place] V 20. PLAN: 1. Lexapro 10 mg in the morning. 2. We will continue to follow and readjust the medications. Stephanie Ybarra M.D. DR: MARY JOB#: [id number] CC:
--- NOTE | 2019-09-18 06:17 | NUR ---
NURSE NOTES: Called and left a message with Dr. Rios regarding pts gall stones. awaiting call back for possible consult.
--- NOTE | 2019-09-18 06:42 | Cardiac Electrophysiology PN ---
Assessment/Plan Assessment/Plan 1. Hypertension. Keep the patient off antihypertensive agents as the patient was dehydrated and blood pressure was low. 2. Hyperlipidemia, on Lipitor. 3. Fever and UTI on iv Abx. Ruled out for COVID. 4. Diabetes. 5. Contracted gallbladder, packed with stones by Abd US. TAYLOR GI PATRICK RN Subjective Subjective Feeling better. Getting iv Abx and iv Fluid. No CP or SOB Objective Last 24 Hour Vital Signs Date Time Temp Pulse Resp B/P (MAP) Pulse Ox O2 Delivery O2 Flow Rate FiO2 09/18/19 04:00 84 09/18/19 04:00 98.0 90 18 121/72 (88) 95 09/18/19 00:00 97.4 79 18 111/71 (84) 94 09/18/19 00:00 86 09/17/19 21:00 Nasal Cannula 1.0 09/17/19 20:00 97.4 85 18 116/70 (85) 97 09/17/19 20:00 84 09/17/19 16:00 98.3 79 18 127/69 (88) 96 09/17/19 15:41 89 09/17/19 12:00 98.6 73 18 135/68 (90) 95 09/17/19 11:29 87 09/17/19 09:00 Nasal Cannula 1.0 09/17/19 08:00 97.1 94 19 139/77 (97) 95 09/17/19 07:53 92 Intake and Output 09/17/19 09/18/19 19:00 07:00 Intake Total 675 ml Output Total 700 ml Balance 675 ml -700 ml Intake IV Total 675 ml Output Urine Total 700 ml Microbiology Date/Time Source Procedure Growth Status 09/16/19 18:14 Blood Blood Culture - Preliminary NO GROWTH AFTER 24 HOURS Resulted 09/16/19 18:04 Blood Blood Culture - Preliminary NO GROWTH AFTER 24 HOURS Resulted 09/16/19 18:30 Nasopharynx Coronavirus COVID-19 PCR ([facility]) - Final Complete 09/16/19 18:30 Urine,Clean Catch Urine Culture - Preliminary Gram Negative Patrick Resulted Objective HEAD AND NECK: Showed no JVD. LUNGS: Clear. CARDIOVASCULAR: Shows regular S1 and S2 with no gallop. ABDOMEN: Soft. EXTREMITIES: No pitting edema. Noe Galdamez MD Sep 18, 2019 06:42
[2019-09-18] MEDS: NovoLOG Insulin Flexpen SUBQ SCH ×4 (06:45→21:27)
--- NOTE | 2019-09-18 07:13 | NUR ---
HAND-OFF: Report given to NEFTALI Cline. Pt stable.
--- NOTE | 2019-09-18 07:45 | NUR ---
NURSE NOTES: pt in stable condition, AOx2. pt on registered nurse cardiac, no signs of cardiac or respiratory distress. Bed in lowest position and locked rails padded, bed alarm on . will continue to monitor pt. Pt on [place].
[2019-09-18 08:16] VITALS: BP 121/72
--- NOTE | 2019-09-18 09:00 | NUR ---
NURSE NOTES: Encourage pt to eat, she insist on not eating "Im not hungry". Feed pt a few spoonfulls and juice. will continue to educate and encourage pt.
[2019-09-18] MEDS ORDERED: Tubing IV Secondary IV ONE (09:04)
[2019-09-18] MEDS ORDERED: 1/2 NS 1000ml IV ONE (09:04)
[2019-09-18] MEDS ORDERED: NS 275ml ONE (09:04)
[2019-09-18 09:11] LABS: ALANINE AMINOTRANSFERASE 29 U/L (12-78); ALBUMIN 2.5 G/DL (3.4-5.0); ALBUMIN/GLOBULIN RATIO 0.6 (1.0-2.7); ALKALINE PHOSPHATASE 47 U/L (46-116); ANION GAP 7 mmol/L (5-15); ASPARTATE AMINO TRANSFERASE 36 U/L (15-37); BILIRUBIN,TOTAL 0.1 MG/DL (0.2-1.0); BLOOD UREA NITROGEN 23 mg/dL (7-18); CALCIUM 8.2 MG/DL (8.5-10.1); CARBON DIOXIDE 28 MMOL/L (21-32); CHLORIDE 102 MMOL/L (98-107); CREATININE 1.2 MG/DL (0.55-1.30); PHOSPHORUS 2.7 MG/DL (2.5-4.9); POTASSIUM 3.9 MMOL/L (3.5-5.1); SODIUM 137 MMOL/L (136-145)
[2019-09-18 09:13] LABS: BASOPHILS % (AUTO) 0.6 % (0.0-2.0); EOSINOPHILS % (AUTO) 1.1 % (0.0-3.0); HEMATOCRIT 27.5 % (37.0-47.0); HEMOGLOBIN 9.5 G/DL (12.0-16.0); LYMPHOCYTES % (AUTO) 20.3 % (20.0-45.0); MEAN CORPUSCULAR VOLUME 89 FL (80-99); MONOCYTES % (AUTO) 11.7 % (1.0-10.0); NEUTROPHILS % (AUTO) 66.2 % (45.0-75.0); PLATELET COUNT 262 K/UL (150-450); RED CELL DISTRIBUTION WIDTH 10.9 % (11.6-14.8); WHITE BLOOD COUNT 10.3 K/UL (4.8-10.8)
[2019-09-18] MEDS: Levodopa/Carbidopa 25/100 tab ORAL SCH ×3 (10:10→18:19)
[2019-09-18] MEDS: Docusate 100mg cap ORAL SCH ×3 (10:10→18:18)
[2019-09-18] MEDS: Nateglinide 60mg tab ORAL SCH ×3 (10:10→18:18)
--- NOTE | 2019-09-18 11:20 | Nephrology Progress Note ---
Assessment/Plan Problem List: (1) MER (acute kidney injury) (2) Dehydration (3) Type 2 diabetes mellitus (4) Anemia (5) UTI (urinary tract infection) Assessment Acute renal failure, most likely dehydration Will watch for underlying chronic kidney disease. Anemia, etiology to be identified Toxic metabolic encephalopathy on presentation Diabetes mellitus [id number] with hemoglobin A1c of 8.9 History of COPD History of pulmonary hypertension History of UTI, evidence of UTI on this admission Patient currently full code however on previous admission was DNR Plan Slow hydration Monitor renal parameters Monitor electrolytes Keep the blood pressure and blood sugar in check Urine studies Antibiotics as needed Per consultants Subjective ROS Limited/Unobtainable: No Constitutional: Reports: malaise, weakness Objective Objective Last 24 Hour Vital Signs Date Time Temp Pulse Resp B/P (MAP) Pulse Ox O2 Delivery O2 Flow Rate FiO2 09/18/19 08:20 Nasal Cannula 1.0 09/18/19 08:16 96.3 83 18 121/72 (88) 97 09/18/19 04:00 84 09/18/19 04:00 98.0 90 18 121/72 (88) 95 09/18/19 00:00 97.4 79 18 111/71 (84) 94 09/18/19 00:00 86 09/17/19 21:00 Nasal Cannula 1.0 09/17/19 20:00 97.4 85 18 116/70 (85) 97 09/17/19 20:00 84 09/17/19 16:00 98.3 79 18 127/69 (88) 96 09/17/19 15:41 89 09/17/19 12:00 98.6 73 18 135/68 (90) 95 09/17/19 11:29 87 Intake and Output 09/17/19 09/18/19 19:00 07:00 Intake Total 675 ml Output Total 700 ml Balance 675 ml -700 ml IV Total 675 ml Output Urine Total 700 ml Laboratory Tests 09/18/19 08:05: White Blood Count 10.3, Red Blood Count 3.10L, Hemoglobin 9.5L, Hematocrit 27.5L , Mean Corpuscular Volume 89, Mean Corpuscular Hemoglobin 30.7, Mean Corpuscular Hemoglobin Concent 34.6, Red Cell Distribution Width 10.9L, Platelet Count 262, Mean Platelet Volume 5.3L, Neutrophils (%) (Auto) 66.2, Lymphocytes (%) (Auto) 20.3, Monocytes (%) (Auto) 11.7H, Eosinophils (%) (Auto) 1.1, Basophils (%) (Auto) 0.6, Sodium Level 137, Potassium Level 3.9, Chloride Level 102, Carbon Dioxide Level 28, Anion Gap 7, Blood Urea Nitrogen 23H, Creatinine 1.2, Estimat Glomerular Filtration Rate 44.7, Glucose Level 226H, Uric Acid 7.2, Calcium Level 8.2L, Phosphorus Level 2.7, Magnesium Level 1.9, Total Bilirubin 0.1L, Aspartate Amino Transf (AST/SGOT) 36, Alanine Aminotransferase (ALT/SGPT) 29, Alkaline Phosphatase 47, Troponin I 0.003, C- Reactive Protein, Quantitative 3.8H, Pro-B-Type Natriuretic Peptide 3009H, Total Protein 6.8, Albumin 2.5L, Globulin 4.3, Albumin/Globulin Ratio 0.6L Height (Feet): 5 Height (Inches): 5.00 Weight (Pounds): 140 General Appearance: no apparent distress Cardiovascular: tachycardia Respiratory/Chest: decreased breath sounds Abdomen: soft José Miguel Calvert MD Sep 18, 2019 11:20
[2019-09-18 12:00] VITALS: BP 127/80
[2019-09-18 16:00] VITALS: BP 147/73
--- NOTE | 2019-09-18 19:45 | NUR ---
NURSE NOTES: Received hand-off report from NEFTALI Cline. Received patient lying in bed, high-fowlers position. IV in left antecubital, 20g, patent, intact, and flushed well with 10mL, no complaints of pain or tenderness at site. Prescribed fluids running at prescribed rate. Patient is in stable condition, alert and oriented x1, cardiac leads in place and fermenter wine working, no signs of acute distress noted. Bed in low and locked position, call light within reach, and changed patient gown.
--- NOTE | 2019-09-18 19:45 | NUR ---
HAND-OFF: Report given to Ana/ rn pt in stable condition, eats very little.
--- NOTE | 2019-09-18 19:46 | General Progress Note ---
Assessment/Plan Problem List: (1) Severe sepsis ICD Codes: A41.9 - Sepsis, unspecified organism; R65.20 - Severe sepsis without septic shock SNOMED: 81099241 (2) Constipation ICD Codes: K59.00 - Constipation, unspecified SNOMED: 77631773 (3) Cholelithiasis ICD Codes: K80.20 - Calculus of gallbladder without cholecystitis without obstruction SNOMED: 721226625 (4) Pulmonary hypertension ICD Codes: I27.20 - Pulmonary hypertension, unspecified SNOMED: 21902290 (5) Dehydration ICD Codes: E86.0 - Dehydration SNOMED: 72391834 (6) UTI (urinary tract infection) ICD Codes: N39.0 - Urinary tract infection, site not specified SNOMED: 32478845 (7) Encephalopathy ICD Codes: G93.40 - Encephalopathy, unspecified SNOMED: 91068924, 405066808 (8) Anemia ICD Codes: D64.9 - Anemia, unspecified SNOMED: 516695738 (9) Hyperlipidemia associated with type 2 diabetes mellitus ICD Codes: E11.69 - Type 2 diabetes mellitus with other specified complication ; E78.5 - Hyperlipidemia, unspecified SNOMED: 250924762, 305658304610 (10) Type 2 diabetes mellitus ICD Codes: E11.9 - Type 2 diabetes mellitus without complications SNOMED: 71071902, 347714552 Status: progressing Assessment/Plan: afebrile dm gallstones consulted dr [place] copd resp insuff dm reviewed chart and labs Subjective ROS Limited/Unobtainable: Yes Allergies: Coded Allergies: No Known Allergies (Unverified , 11/08/15) Objective Last 24 Hour Vital Signs Date Time Temp Pulse Resp B/P (MAP) Pulse Ox O2 Delivery O2 Flow Rate FiO2 09/18/19 16:00 96.8 102 18 147/73 (97) 93 09/18/19 12:00 96.6 89 18 127/80 (96) 94 09/18/19 12:00 86 09/18/19 08:20 Nasal Cannula 1.0 09/18/19 08:16 96.3 83 18 121/72 (88) 97 09/18/19 08:00 88 09/18/19 04:00 84 09/18/19 04:00 98.0 90 18 121/72 (88) 95 09/18/19 00:00 97.4 79 18 111/71 (84) 94 09/18/19 00:00 86 09/17/19 21:00 Nasal Cannula 1.0 09/17/19 20:00 97.4 85 18 116/70 (85) 97 09/17/19 20:00 84 Intake and Output 09/17/19 09/18/19 19:00 07:00 Intake Total 675 ml Output Total 700 ml Balance 675 ml -700 ml IV Total 675 ml Output Urine Total 700 ml Laboratory Tests 09/18/19 08:05: White Blood Count 10.3, Red Blood Count 3.10L, Hemoglobin 9.5L, Hematocrit 27.5L , Mean Corpuscular Volume 89, Mean Corpuscular Hemoglobin 30.7, Mean Corpuscular Hemoglobin Concent 34.6, Red Cell Distribution Width 10.9L, Platelet Count 262, Mean Platelet Volume 5.3L, Neutrophils (%) (Auto) 66.2, Lymphocytes (%) (Auto) 20.3, Monocytes (%) (Auto) 11.7H, Eosinophils (%) (Auto) 1.1, Basophils (%) (Auto) 0.6, Sodium Level 137, Potassium Level 3.9, Chloride Level 102, Carbon Dioxide Level 28, Anion Gap 7, Blood Urea Nitrogen 23H, Creatinine 1.2, Estimat Glomerular Filtration Rate 44.7, Glucose Level 226H, Uric Acid 7.2, Calcium Level 8.2L, Phosphorus Level 2.7, Magnesium Level 1.9, Total Bilirubin 0.1L, Aspartate Amino Transf (AST/SGOT) 36, Alanine Aminotransferase (ALT/SGPT) 29, Alkaline Phosphatase 47, Troponin I 0.003, C- Reactive Protein, Quantitative 3.8H, Pro-B-Type Natriuretic Peptide 3009H, Total Protein 6.8, Albumin 2.5L, Globulin 4.3, Albumin/Globulin Ratio 0.6L Height (Feet): 5 Height (Inches): 5.00 Weight (Pounds): 140 Cardiovascular: normal rate Respiratory/Chest: lungs clear Abdomen: soft Amelie Rios MD Sep 18, 2019 19:46
[2019-09-18 20:00] VITALS: BP 145/88
[2019-09-18] MEDS: cefTRIAXone 1 GM in D5W 55 ML IVPB SCH (21:25)
--- NOTE | 2019-09-18 23:47 | Psych Consult Progress Note ---
Psychiatry Progress Note Psychiatry Progress Note Medications Current Medications Medications (Trade) Dose Ordered Sig/Tenzin Route PRN Reason Start Time Stop Time Status Last Admin Dose Admin Acetaminophen (Tylenol) 650 mg Q4H PRN ORAL Temp >100.5 09/16/19 23:00 10/16/19 22:59 Atorvastatin Calcium (Lipitor) 10 mg BEDTIME ORAL 09/17/19 21:00 12/16/19 20:59 09/18/19 21:25 Carbidopa/Levodopa (Sinemet 25/100) 1 tab THREE TIMES A DAY ORAL 09/17/19 09:00 10/17/19 08:59 09/18/19 18:19 Ceftriaxone Sodium 1 gm/ Dextrose 55 ml @ 110 mls/hr Q24H IVPB 09/17/19 21:00 09/24/19 20:59 09/18/19 21:25 Dextrose (Dextrose 50%) 25 ml Q30M PRN IV Hypoglycemia 09/16/19 23:00 12/15/19 22:59 Dextrose (Dextrose 50%) 50 ml Q30M PRN IV Hypoglycemia 09/16/19 23:00 12/15/19 22:59 Docusate Sodium (Colace) 100 mg THREE TIMES A DAY ORAL 09/17/19 09:00 10/17/19 08:59 09/18/19 18:18 Escitalopram Oxalate (Lexapro) 10 mg DAILY ORAL 09/17/19 09:00 10/17/19 08:59 09/18/19 10:10 Insulin Aspart (NovoLOG) BEFORE MEALS AND HS SUBQ 09/17/19 06:30 12/16/19 06:29 09/18/19 21:27 Nateglinide (Starlix) 60 mg THREE TIMES A DAY ORAL 09/17/19 09:00 10/17/19 08:59 09/18/19 18:18 Pantoprazole (Protonix) 40 mg EVERY 12 HOURS ORAL 09/17/19 09:00 10/17/19 08:59 09/18/19 21:25 Sodium Chloride 1,000 ml @ 75 mls/hr [id number] IV 09/17/19 08:45 10/17/19 08:44 09/18/19 11:25 Neurological/Psychiatric: Reports: anxiety, depressed Allergies: Coded Allergies: No Known Allergies (Unverified , 11/08/15) Appearance: no abnormalities noted Behavior Mannerisms: poor eye contact Mental Status Exam - Affect: blunted Additional Comments: alert and oriented times self. Mood is anxious. Affect is flat. Thought process, there is a paucity of thought content. Thought content, no suicidal or homicidal ideation. Cognition is impaired. Insight and judgment are impaired. ASSESSMENT: [place] I Acute encephalopathy. Major depressive disorder. Anxiety disorder. [place] II Deferred. [place] III As above. [place] IV Low. [place] V 20. PLAN: 1. Lexapro 10 mg in the morning. Stephanie Ybarra MD Sep 18, 2019 23:46
[2019-09-19] VITALS (7 sets, daily range): BP systolic 112–151; BP diastolic 66–83
--- NOTE | 2019-09-19 00:30 | NUR ---
NURSE NOTES: Patient experiencing anxiety, source unknown, Dr. Ybarra notified. Lung sounds clear bilaterally in all lung lobes, respirations 28 / min. Head of bed is in high fowlers. Patient on NC at 2L /min. Addendum: 09/19/19 at 0114 by Celia Wren RN BP: 153 / 82, spO2: 91%, HR: 97, RT notified
[2019-09-19] MEDS ORDERED: LORazepam 1mg tab ORAL PRN (01:00)
--- NOTE | 2019-09-19 01:22 | NUR ---
NURSE NOTES: RT has arrived, Venturi mask given, spO2: 90%, 153 / 82, HR: 109, RR: 30
--- NOTE | 2019-09-19 01:30 | NUR ---
NURSE NOTES: Notified Dr. Rios regarding recent vitals, namely spO2 90% and tachycardia. RT suggested Atrovent, and I relayed this over to Dr. Rios, awaiting orders.
--- NOTE | 2019-09-19 03:30 | NUR ---
NURSE NOTES: On venturi mask 14L oxygen, SpO2: 95%, RR: 25, BP: 146 / 85, HR: 103; no apparent signs of acute distress.
--- NOTE | 2019-09-19 06:13 | Hematology/Onc Progress Note ---
Assessment/Plan Assessment/Plan Assessment and Recs: # Anemia of iron deficiency -- hgb remains low, anemia panel reviewed, ferritin in prior was 20 --> consider iron as needed, if low will order ferritin --> cea is 4.9 --> no hemolysis is seen --> r/o gi bleed, gi is on board # Leukocytosis with Sepsis likely due to uti --> has now improved --> abx: ceftriaxone --> as per Dr. Martinez --> urine cx positive # Ryan on admission --> per renal on ivf --> per Dr. Calvert # Elevated lactic acid level --> sp abx lecquin # Type 2 diabetes mellitus --> acucchecks qac and qhs --> iss, consider endo # Stage I decubitus ulcer sacrum # Dvt ppx scds Appreciate consultation and dw Rn Subjective Allergies: Coded Allergies: No Known Allergies (Unverified , 11/08/15) Subjective 09/18 tele, no acute events, nc, labs pending Objective Objective Current Medications Medications (Trade) Dose Ordered Sig/Tenzin Route PRN Reason Start Time Stop Time Status Last Admin Dose Admin Acetaminophen (Tylenol) 650 mg Q4H PRN ORAL Temp >100.5 09/16/19 23:00 10/16/19 22:59 Atorvastatin Calcium (Lipitor) 10 mg BEDTIME ORAL 09/17/19 21:00 12/16/19 20:59 09/18/19 21:25 Carbidopa/Levodopa (Sinemet 25/100) 1 tab THREE TIMES A DAY ORAL 09/17/19 09:00 10/17/19 08:59 09/18/19 18:19 Ceftriaxone Sodium 1 gm/ Dextrose 55 ml @ 110 mls/hr Q24H IVPB 09/17/19 21:00 09/24/19 20:59 09/18/19 21:25 Dextrose (Dextrose 50%) 25 ml Q30M PRN IV Hypoglycemia 09/16/19 23:00 12/15/19 22:59 Dextrose (Dextrose 50%) 50 ml Q30M PRN IV Hypoglycemia 09/16/19 23:00 12/15/19 22:59 Docusate Sodium (Colace) 100 mg THREE TIMES A DAY ORAL 09/17/19 09:00 10/17/19 08:59 09/18/19 18:18 Escitalopram Oxalate (Lexapro) 10 mg DAILY ORAL 09/17/19 09:00 10/17/19 08:59 09/18/19 10:10 Insulin Aspart (NovoLOG) BEFORE MEALS AND HS SUBQ 09/17/19 06:30 12/16/19 06:29 09/18/19 21:27 Lorazepam (Ativan) 1 mg Q6H PRN ORAL For Anxiety 09/19/19 01:00 09/26/19 00:59 Mirtazapine (Remeron) 7.5 mg BEDTIME PRN ORAL INSOMNIA 09/19/19 01:00 12/18/19 00:59 Nateglinide (Starlix) 60 mg THREE TIMES A DAY ORAL 09/17/19 09:00 10/17/19 08:59 09/18/19 18:18 Pantoprazole (Protonix) 40 mg EVERY 12 HOURS ORAL 09/17/19 09:00 10/17/19 08:59 09/18/19 21:25 Sodium Chloride 1,000 ml @ 60 mls/hr [id number] IV 09/19/19 01:30 10/19/19 01:29 09/19/19 01:34 Last 24 Hour Vital Signs Date Time Temp Pulse Resp B/P (MAP) Pulse Ox O2 Delivery O2 Flow Rate FiO2 09/19/19 04:00 98 09/19/19 04:00 97.2 105 18 138/78 (98) 96 09/19/19 00:00 104 09/19/19 00:00 97.9 98 22 143/79 (100) 95 09/18/19 21:00 Nasal Cannula 1.0 09/18/19 20:00 103 09/18/19 20:00 98.1 100 18 145/88 (107) 97 09/18/19 16:00 101 09/18/19 16:00 96.8 102 18 147/73 (97) 93 09/18/19 12:00 96.6 89 18 127/80 (96) 94 09/18/19 12:00 86 09/18/19 08:20 Nasal Cannula 1.0 09/18/19 08:16 96.3 83 18 121/72 (88) 97 09/18/19 08:00 88 09/18/19 04:00 84 09/18/19 04:00 98.0 90 18 121/72 (88) 95 09/18/19 00:00 97.4 79 18 111/71 (84) 94 09/18/19 00:00 86 09/17/19 21:00 Nasal Cannula 1.0 09/17/19 20:00 97.4 85 18 116/70 (85) 97 09/17/19 20:00 84 09/17/19 16:00 98.3 79 18 127/69 (88) 96 09/17/19 15:41 89 09/17/19 12:00 98.6 73 18 135/68 (90) 95 09/17/19 11:29 87 09/17/19 09:00 Nasal Cannula 1.0 09/17/19 08:00 97.1 94 19 139/77 (97) 95 09/17/19 07:53 92 Intake and Output 09/18/19 09/19/19 19:00 07:00 Intake Total 270 ml Balance 270 ml Intake Oral 270 ml # Voids 2 # Bowel Movements 1 1 Labs Test 09/16/19 18:04 09/16/19 18:14 09/16/19 18:30 09/17/19 04:00 Ammonia < 10 umol/L (11-32) Lactic Acid Level 2.00 mmol/L (0.4-2.0) White Blood Count 14.4 K/UL (4.8-10.8) 12.1 K/UL (4.8-10.8) Red Blood Count 3.31 M/UL (4.20-5.40) 3.30 M/UL (4.20-5.40) Hemoglobin 10.0 G/DL (12.0-16.0) 10.3 G/DL (12.0-16.0) Hematocrit 31.9 % (37.0-47.0) 29.5 % (37.0-47.0) Mean Corpuscular Volume 96 FL (80-99) 89 FL (80-99) Mean Corpuscular Hemoglobin 30.2 PG (27.0-31.0) 31.2 PG (27.0-31.0) Mean Corpuscular Hemoglobin Concent 31.3 G/DL (32.0-36.0) 34.9 G/DL (32.0-36.0) Red Cell Distribution Width 12.2 % (11.6-14.8) 11.0 % (11.6-14.8) Platelet Count 289 K/UL (150-450) 270 K/UL (150-450) Mean Platelet Volume 5.3 FL (6.5-10.1) 4.6 FL (6.5-10.1) Neutrophils (%) (Auto) 70.8 % (45.0-75.0) 60.4 % (45.0-75.0) Lymphocytes (%) (Auto) 14.9 % (20.0-45.0) 26.8 % (20.0-45.0) Monocytes (%) (Auto) 13.3 % (1.0-10.0) 10.8 % (1.0-10.0) Eosinophils (%) (Auto) 0.4 % (0.0-3.0) 1.0 % (0.0-3.0) Basophils (%) (Auto) 0.6 % (0.0-2.0) 1.0 % (0.0-2.0) Prothrombin Time 10.1 SEC (9.30-11.50) Prothromb Time International Ratio 0.9 (0.9-1.1) Activated Partial Thromboplast Time 26 SEC (23-33) Urine Color Pale yellow Urine Appearance Turbid Urine pH 5 (4.5-8.0) Urine Specific [place] 1.015 (1.005-1.035) Urine Protein 3+ (NEGATIVE) Urine Glucose (UA) Negative (NEGATIVE) Urine Ketones Negative (NEGATIVE) Urine Blood 4+ (NEGATIVE) Urine Nitrite Negative (NEGATIVE) Urine Bilirubin Negative (NEGATIVE) Urine Urobilinogen Normal MG/DL (0.0-1.0) Urine Leukocyte Esterase 3+ (NEGATIVE) Urine RBC 20-30 /HPF (0 - 2) Urine WBC Tntc /HPF (0 - 2) Urine Squamous Epithelial Cells Few /LPF (NONE/OCC) Urine Bacteria Many /HPF (NONE) Sodium Level 140 MMOL/L (136-145) 142 MMOL/L (136-145) Potassium Level 3.8 MMOL/L (3.5-5.1) 3.7 MMOL/L (3.5-5.1) Chloride Level 98 MMOL/L (98-107) 103 MMOL/L (98-107) Carbon Dioxide Level 33 MMOL/L (21-32) 32 MMOL/L (21-32) Anion Gap 9 mmol/L (5-15) 7 mmol/L (5-15) Blood Urea Nitrogen 36 mg/dL (7-18) 36 mg/dL (7-18) Creatinine 1.8 MG/DL (0.55-1.30) 1.6 MG/DL (0.55-1.30) Estimat Glomerular Filtration Rate 28.0 mL/min (>60) 32.1 mL/min (>60) Glucose Level 226 MG/DL (74-106) 280 MG/DL (74-106) Calcium Level 9.1 MG/DL (8.5-10.1) 8.3 MG/DL (8.5-10.1) Magnesium Level 2.0 MG/DL (1.8-2.4) 2.0 MG/DL (1.8-2.4) Total Bilirubin 0.2 MG/DL (0.2-1.0) 0.2 MG/DL (0.2-1.0) Aspartate Amino Transf (AST/SGOT) 29 U/L (15-37) 30 U/L (15-37) Alanine Aminotransferase (ALT/SGPT) 29 U/L (12-78) 25 U/L (12-78) Alkaline Phosphatase 63 U/L (46-116) 60 U/L (46-116) Total Creatine Kinase 65 U/L (26-308) 68 U/L (26-308) Creatine Kinase MB 0.6 NG/ML (0.0-3.6) Creatine Kinase MB Relative Index 0.9 Troponin I 0.000 ng/mL (0.000-0.056) Total Protein 8.0 G/DL (6.4-8.2) 6.7 G/DL (6.4-8.2) Albumin 3.0 G/DL (3.4-5.0) 2.5 G/DL (3.4-5.0) Globulin 5.0 g/dL 4.2 g/dL Albumin/Globulin Ratio 0.6 (1.0-2.7) 0.6 (1.0-2.7) Hemoglobin A1c 8.9 % (4.3-6.0) Uric Acid 9.0 MG/DL (2.6-7.2) Phosphorus Level 4.3 MG/DL (2.5-4.9) Iron Level 12 ug/dL (50-175) Total Iron Binding Capacity 315 ug/dL (250-450) Percent Iron Saturation 4 % (15-50) Unsaturated Iron Binding 303 ug/dL (112-346) Ferritin 104 NG/ML (8-388) Triglycerides Level 160 MG/DL (30-150) Cholesterol Level 154 MG/DL (< 200) LDL Cholesterol 89 mg/dL (<100) HDL Cholesterol 47 MG/DL (40-60) Cholesterol/HDL Ratio 3.3 (3.3-4.4) Vitamin B12 Level 564 PG/ML (193-986) Folate 19.0 NG/ML (8.6-58.9) Thyroid Stimulating Hormone (TSH) 0.723 uiU/mL (0.358-3.740) Test 09/18/19 08:05 White Blood Count 10.3 K/UL (4.8-10.8) Red Blood Count 3.10 M/UL (4.20-5.40) Hemoglobin 9.5 G/DL (12.0-16.0) Hematocrit 27.5 % (37.0-47.0) Mean Corpuscular Volume 89 FL (80-99) Mean Corpuscular Hemoglobin 30.7 PG (27.0-31.0) Mean Corpuscular Hemoglobin Concent 34.6 G/DL (32.0-36.0) Red Cell Distribution Width 10.9 % (11.6-14.8) Platelet Count 262 K/UL (150-450) Mean Platelet Volume 5.3 FL (6.5-10.1) Neutrophils (%) (Auto) 66.2 % (45.0-75.0) Lymphocytes (%) (Auto) 20.3 % (20.0-45.0) Monocytes (%) (Auto) 11.7 % (1.0-10.0) Eosinophils (%) (Auto) 1.1 % (0.0-3.0) Basophils (%) (Auto) 0.6 % (0.0-2.0) Sodium Level 137 MMOL/L (136-145) Potassium Level 3.9 MMOL/L (3.5-5.1) Chloride Level 102 MMOL/L (98-107) Carbon Dioxide Level 28 MMOL/L (21-32) Anion Gap 7 mmol/L (5-15) Blood Urea Nitrogen 23 mg/dL (7-18) Creatinine 1.2 MG/DL (0.55-1.30) Estimat Glomerular Filtration Rate 44.7 mL/min (>60) Glucose Level 226 MG/DL (74-106) Uric Acid 7.2 MG/DL (2.6-7.2) Calcium Level 8.2 MG/DL (8.5-10.1) Phosphorus Level 2.7 MG/DL (2.5-4.9) Magnesium Level 1.9 MG/DL (1.8-2.4) Total Bilirubin 0.1 MG/DL (0.2-1.0) Aspartate Amino Transf (AST/SGOT) 36 U/L (15-37) Alanine Aminotransferase (ALT/SGPT) 29 U/L (12-78) Alkaline Phosphatase 47 U/L (46-116) Troponin I 0.003 ng/mL (0.000-0.056) C-Reactive Protein, Quantitative 3.8 mg/dL (0.00-0.90) Pro-B-Type Natriuretic Peptide 3009 pg/mL (0-125) Total Protein 6.8 G/DL (6.4-8.2) Albumin 2.5 G/DL (3.4-5.0) Globulin 4.3 g/dL Albumin/Globulin Ratio 0.6 (1.0-2.7) Height (Feet): 5 Height (Inches): 5.00 Weight (Pounds): 140 Objective Physical Exam Vitals: reviewed General: alert, non-toxic, thin, other - Frail, Chronically Ill Head: normocephalic, atraumatic Heent: bilateral eye normal inspection, bilateral eye PERRl Respiratory: lungs clear, normal breath sounds, Cardiovascular: regular rate, rhythm, no edema Gi: non tender, soft, decreased bowel sounds Gu: no CVA tenderness Msk: no calf tenderness, + Atrophy Neuro: alert, sensory intact, w motor weakness Psychiatric: mood/affect normal Skin: ++ Danie Jackson MD Sep 19, 2019 06:13
[2019-09-19] MEDS: NovoLOG Insulin Flexpen SUBQ SCH ×4 (06:33→21:43)
--- NOTE | 2019-09-19 07:10 | NUR ---
HAND-OFF: Report given to NEFTALI Melvin. Patient is resting in semi-fowlers in stable condition. Venturi mask is on at 14L, spO2: 95%, RR: 22, chest rise is even and regular, no acute signs of distress noted. 0.45% normal saline infusing at 60 mL / hr, left AC 20g flushing properly, IV is intact, clean, dry and patent; no induration, no redness, no c/o of pain / tenderness at IV site. Bed alarm activated, bed in low and locked position, call light within reach, cardiac leads in place and desk monitor working. No apparent distress noted..Hand-off report given to NEFTALI Melvin. Patient is resting in semi-fowlers in stable condition. Venturi mask is on at 14L, spO2: 95%, RR: 22, chest rise is even and regular, no acute signs of distress noted. 0.45% normal saline infusing at 60 mL / hr, left AC 20g flushing properly, IV is intact, clean, dry and patent; no induration, no redness, no c/o of pain / tenderness at IV site. Bed alarm activated, bed in low and locked position, call light within reach, cardiac leads in place and desk monitor working. No apparent distress noted.
--- NOTE | 2019-09-19 07:45 | NUR ---
NURSE NOTES: Received report from Celia Layton RN. Patient sitting HOB at 45 degrees, on 14 liters venturi mask saturating at 95 percent, side rails up x 3, side rails padded, bed in lowest position, call light within reach, sleeping, good chest rise, in no apparent distress.
[2019-09-19] MEDS ORDERED: Omnipaque-300 100ml vial INJ PRN (09:00)
[2019-09-19] MEDS: Nateglinide 60mg tab ORAL SCH ×3 (09:53→17:06)
[2019-09-19] MEDS: Docusate 100mg cap ORAL SCH ×3 (09:53→17:06)
[2019-09-19] MEDS: Levodopa/Carbidopa 25/100 tab ORAL SCH ×3 (09:53→17:06)
--- NOTE | 2019-09-19 10:36 | Nephrology Progress Note ---
Assessment/Plan Problem List: (1) MER (acute kidney injury) (2) Dehydration (3) Type 2 diabetes mellitus (4) Anemia (5) UTI (urinary tract infection) Assessment Acute renal failure, most likely dehydration Will watch for underlying chronic kidney disease. Anemia, etiology to be identified Toxic metabolic encephalopathy on presentation Diabetes mellitus [id number] with hemoglobin A1c of 8.9 History of COPD History of pulmonary hypertension History of UTI, evidence of UTI on this admission Patient currently full code however on previous admission was DNR Plan Stop IV hydration. 1 dose of Lasix IV and 1 dose of potassium chloride p.o. ordered. 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 Per orders. Monitor renal parameters Monitor electrolytes Keep the blood pressure and blood sugar in check Urine studies Antibiotics as needed Per consultants Subjective ROS Limited/Unobtainable: No Constitutional: Reports: malaise, weakness Objective Objective Last 24 Hour Vital Signs Date Time Temp Pulse Resp B/P (MAP) Pulse Ox O2 Delivery O2 Flow Rate FiO2 09/19/19 08:00 97.5 90 20 123/73 (90) 96 09/19/19 04:00 98 09/19/19 04:00 97.2 105 18 138/78 (98) 96 09/19/19 00:00 104 09/19/19 00:00 97.9 98 22 143/79 (100) 95 09/18/19 21:00 Nasal Cannula 1.0 09/18/19 20:00 103 09/18/19 20:00 98.1 100 18 145/88 (107) 97 09/18/19 16:00 101 09/18/19 16:00 96.8 102 18 147/73 (97) 93 09/18/19 12:00 96.6 89 18 127/80 (96) 94 09/18/19 12:00 86 Intake and Output 09/18/19 09/19/19 19:00 07:00 Intake Total 270 ml 100 ml Output Total 900 ml Balance 270 ml -800 ml Intake Oral 270 ml 100 ml Output Urine Total 900 ml # Voids 2 # Bowel Movements 1 2 No labs drawn today Height (Feet): 5 Height (Inches): 5.00 Weight (Pounds): 140 General Appearance: mild distress, other - Slightly tachypneic and short of breath Cardiovascular: tachycardia Respiratory/Chest: decreased breath sounds Abdomen: distended Fouladian,José Miguel MD Sep 19, 2019 10:36
--- NOTE | 2019-09-19 11:54 | Cardiac Electrophysiology PN ---
Assessment/Plan Assessment/Plan 1. Hypertension off antihypertensive agents as the patient was dehydrated and blood pressure was low. 2. Hyperlipidemia, on Lipitor. 3. Fever and UTI on iv Abx. Ruled out for COVID. 4. Diabetes. 5. Contracted gallbladder, packed with stones by Abd US. FU GI 6. Respiratory failure, COPD and pulmonary HTN. Getting Chest CT to R/O PE. On Lasix and Ceftriaxone DW RN and Dr Alonzo Subjective Subjective On iv Abx and iv Fluid. Is more SOB and on [address] Chest CT to R/O PE is being done Objective Last 24 Hour Vital Signs Date Time Temp Pulse Resp B/P (MAP) Pulse Ox O2 Delivery O2 Flow Rate FiO2 09/19/19 09:00 Venturi Mask 14.0 09/19/19 08:00 97.5 90 20 123/73 (90) 96 09/19/19 08:00 89 09/19/19 04:00 98 09/19/19 04:00 97.2 105 18 138/78 (98) 96 09/19/19 00:00 104 09/19/19 00:00 97.9 98 22 143/79 (100) 95 09/18/19 21:00 Nasal Cannula 1.0 09/18/19 20:00 103 09/18/19 20:00 98.1 100 18 145/88 (107) 97 09/18/19 16:00 101 09/18/19 16:00 96.8 102 18 147/73 (97) 93 09/18/19 12:00 96.6 89 18 127/80 (96) 94 09/18/19 12:00 86 Intake and Output 09/18/19 09/19/19 19:00 07:00 Intake Total 270 ml 100 ml Output Total 900 ml Balance 270 ml -800 ml Intake Oral 270 ml 100 ml Output Urine Total 900 ml # Voids 2 # Bowel Movements 1 2 Microbiology Date/Time Source Procedure Growth Status 09/16/19 18:14 Blood Blood Culture - Preliminary NO GROWTH AFTER 48 HOURS Resulted 09/16/19 18:04 Blood Blood Culture - Preliminary NO GROWTH AFTER 48 HOURS Resulted 09/16/19 18:30 Nasopharynx Coronavirus COVID-19 PCR ([facility]) - Final Complete 09/16/19 18:30 Urine,Clean Catch Urine Culture - Final Escherichia Coli Complete Objective HEAD AND NECK: No JVD. LUNGS: Clear. CARDIOVASCULAR: Shows regular S1 and S2 with no gallop. ABDOMEN: Soft. EXTREMITIES: No pitting edema. Noe Galdamez MD Sep 19, 2019 11:54
--- NOTE | 2019-09-19 11:58 | Diagnostic Imaging Report ---
EXAM: CT Chest With Intravenous Contrast CLINICAL HISTORY: PULM HTN TECHNIQUE: Axial computed tomography images of the chest with intravenous contrast. CTDI is 23.1 mGy and DLP is 207 mGy-cm. One or more of the following dose reduction techniques were used: automated exposure control, adjustment of the mA and/or kV according to patient size, use of iterative reconstruction technique. COMPARISON: CT chest on 05/19/2019 FINDINGS: Lungs: Patchy densities and ground-glass opacities throughout right greater than left, concerning for an infectious/inflammatory process and/or pulmonary edema. No pulmonary embolus identified. Dependent atelectasis bilaterally. Emphysematous changes. Pleural space: Small bilateral pleural effusions. No pneumothorax. Heart: Prominent mitral annular calcification. Coronary artery calcifications. No significant pericardial effusion. Thyroid: Heterogeneous thyroid with punctate calcification on the right could be further evaluated with nonemergent dedicated ultrasound if clinically indicated. Bones/joints: Unremarkable. No acute fracture. No dislocation. Soft tissues: Unremarkable. Vasculature: Mild prominence of the pulmonary artery is suggestive of pulmonary arterial hypertension. Atherosclerotic changes of the vasculature. No aortic aneurysm or dissection. Lymph nodes: Nonspecific enlarged mediastinal and hilar lymph nodes. Gallbladder and bile ducts: Underdistended gallbladder. IMPRESSION: 1. Patchy densities and ground-glass opacities throughout right greater than left, concerning for an infectious/inflammatory process and/or pulmonary edema. 2. Small bilateral pleural effusions. 3. No pulmonary embolus identified. 4. Mild prominence of the pulmonary artery is suggestive of pulmonary arterial hypertension.
--- NOTE | 2019-09-19 12:00 | Consultation ---
DATE OF CONSULTATION: 09/19/2019 PULMONARY CONSULTATION CONSULTING PHYSICIAN: Cezar Byrne MD. HISTORY OF PRESENT ILLNESS: This is a 68-year-old shelter resident with chronic encephalopathy, was brought to the hospital with worsening mental status. She was admitted on . She was also noted to be febrile. She was managed initially by Cardiology and Internal Medicine. Her initial COVID-19 PCR was negative and a urine culture has grown out E. coli, which is sensitive to all except gentamicin, ampicillin, and Bactrim. In the last 24 hours, the patient's laboratories have gradually improved with less azotemia. Review of her imaging studies have shown that she has clear lung montiel bilaterally. She has been noted to be more hypoxic, although yesterday she was saturating well on nasal oxygen. Currently, she is on a Ventimask. Her respiratory rate is only 20. She is unable to provide any further information. PAST MEDICAL HISTORY: Notable for hypertension, encephalopathy. CURRENT MEDICATIONS: Includes Lipitor, Rocephin, Colace, Lexapro, insulin sliding scale, Sinemet, Ativan, Remeron, Starlix, and Protonix. REVIEW OF SYSTEMS: Not obtainable. PHYSICAL EXAMINATION: GENERAL: Reveals a 68-year-old female. HEENT: Unremarkable. CHEST: Shows diminished breath sounds bilaterally with normal heart sound. ABDOMEN: Soft. EXTREMITIES: There is no appreciable edema. IMPRESSION: 1. Hypoxemia. 2. Diabetes mellitus. 3. Decubitus ulcer, sacrum. 4. UTI. 5. Hypertension. 6. Hyperlipidemia. DISCUSSION: I have reviewed echocardiogram, which shows moderate mitral regurgitation, left ventricular diastolic dysfunction and evidence of mild pulmonary hypertension based on elevated tricuspid systolic velocity. The etiology of her hypoxemia is unclear. I will order duplex lower extremities as well as a CT angio to rule out PE. Continue Ventimask. We will follow carefully. Cezar Byrne M.D. DR: FREDDY JOB#: [id number] CC:
--- NOTE | 2019-09-19 14:10 | Infectious Diseases Prog Note ---
Assessment/Plan Assessment/Plan IMPRESSION: Sepsis with leukocytosis and fever. E. coli UTI. Diabetes mellitus with hyperglycemia, COPD, Hypertension, pulmonary hypertension, Diastolic CHF, Parkinson disease, anemia, major depression. RECOMMENDATION: We will continue ceftriaxone. Subjective ROS Limited/Unobtainable: Yes Constitutional: Reports: no symptoms Respiratory: Reports: no symptoms Gastrointestinal/Abdominal: Reports: no symptoms Genitourinary: Reports: no symptoms Allergies: Coded Allergies: No Known Allergies (Unverified , 11/08/15) Objective Vital Signs Last 24 Hour Vital Signs Date Time Temp Pulse Resp B/P (MAP) Pulse Ox O2 Delivery O2 Flow Rate FiO2 09/19/19 12:00 98.7 97 22 138/66 (90) 97 09/19/19 09:00 Venturi Mask 14.0 09/19/19 08:00 97.5 90 20 123/73 (90) 96 09/19/19 08:00 89 09/19/19 04:00 98 09/19/19 04:00 97.2 105 18 138/78 (98) 96 09/19/19 00:00 104 09/19/19 00:00 97.9 98 22 143/79 (100) 95 09/18/19 21:00 Nasal Cannula 1.0 09/18/19 20:00 103 09/18/19 20:00 98.1 100 18 145/88 (107) 97 09/18/19 16:00 101 09/18/19 16:00 96.8 102 18 147/73 (97) 93 Height (Feet): 5 Height (Inches): 5.00 Weight (Pounds): 140 General Appearance: no acute distress HEENT: mucous membranes moist Respiratory/Chest: lungs clear, other - oxygen by mask Cardiovascular: normal rate Abdomen: soft, non tender Extremities: no edema Neurologic/Psychiatric: alert, responsive Microbiology Date/Time Source Procedure Growth Status 09/16/19 18:14 Blood Blood Culture - Preliminary NO GROWTH AFTER 48 HOURS Resulted 09/16/19 18:04 Blood Blood Culture - Preliminary NO GROWTH AFTER 48 HOURS Resulted 09/16/19 18:30 Nasopharynx Coronavirus COVID-19 PCR ([facility]) - Final Complete 09/16/19 18:30 Urine,Clean Catch Urine Culture - Final Escherichia Coli Complete Current Medications Medications (Trade) Dose Ordered Sig/Tenzin Route PRN Reason Start Time Stop Time Status Last Admin Dose Admin Acetaminophen (Tylenol) 650 mg Q4H PRN ORAL Temp >100.5 09/16/19 23:00 10/16/19 22:59 Atorvastatin Calcium (Lipitor) 10 mg BEDTIME ORAL 09/17/19 21:00 12/16/19 20:59 09/18/19 21:25 Carbidopa/Levodopa (Sinemet 25/100) 1 tab THREE TIMES A DAY ORAL 09/17/19 09:00 10/17/19 08:59 09/19/19 13:15 Ceftriaxone Sodium 1 gm/ Dextrose 55 ml @ 110 mls/hr Q24H IVPB 09/17/19 21:00 09/24/19 20:59 09/18/19 21:25 Dextrose (Dextrose 50%) 25 ml Q30M PRN IV Hypoglycemia 09/16/19 23:00 12/15/19 22:59 Dextrose (Dextrose 50%) 50 ml Q30M PRN IV Hypoglycemia 09/16/19 23:00 12/15/19 22:59 Docusate Sodium (Colace) 100 mg THREE TIMES A DAY ORAL 09/17/19 09:00 10/17/19 08:59 09/19/19 13:15 Escitalopram Oxalate (Lexapro) 10 mg DAILY ORAL 09/17/19 09:00 10/17/19 08:59 09/19/19 09:53 Insulin Aspart (NovoLOG) BEFORE MEALS AND HS SUBQ 09/17/19 06:30 12/16/19 06:29 09/19/19 12:20 Iohexol (OMNIPAQUE-300 100ml) 100 ml ONCE PRN INJ PROCEDURE 09/19/19 09:00 09/21/19 08:59 Lorazepam (Ativan) 1 mg Q6H PRN ORAL For Anxiety 09/19/19 01:00 09/26/19 00:59 Mirtazapine (Remeron) 7.5 mg BEDTIME PRN ORAL INSOMNIA 09/19/19 01:00 12/18/19 00:59 Nateglinide (Starlix) 60 mg THREE TIMES A DAY ORAL 09/17/19 09:00 10/17/19 08:59 09/19/19 13:15 Pantoprazole (Protonix) 40 mg EVERY 12 HOURS ORAL 09/17/19 09:00 10/17/19 08:59 09/19/19 09:53 Rogelio Martinez MD Sep 19, 2019 14:10
--- NOTE | 2019-09-19 14:32 | Diagnostic Imaging Report ---
EXAM: US Duplex Bilateral Lower Extremities Veins CLINICAL HISTORY: DVT TECHNIQUE: Real-time duplex ultrasound scan of the bilateral lower extremity veins integrating B-mode two-dimensional vascular structure, Doppler spectral analysis, color flow Doppler imaging and compression. COMPARISON: Lower extremity venous Doppler on 05/12/2019 FINDINGS: Right deep veins: Unremarkable. No DVT in the right common femoral, femoral, proximal deep femoral or popliteal veins. The veins demonstrate normal color flow, are normally compressible, with normal phasic flow and/or augmentation response. 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 Left deep veins: No DVT in the visualized left common femoral vein and proximal and mid left superficial femoral vein. The rest of the left lower extremity veins not included on this exam. Soft tissues: No acute findings. No popliteal cyst. 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 No deep venous thrombosis identified in the right lower extremity. No DVT in the visualized left common femoral vein and proximal and mid left superficial femoral vein. The rest of the left lower extremity veins not included on this exam.
[2019-09-19] MEDS: Albuterol/Ipratropium 3ml neb HHN PRN (16:31)
--- NOTE | 2019-09-19 19:22 | NUR ---
HAND-OFF: Report given to Steve Gibbs RN. Patient sitting HOB at 45 degrees, awake and alert, watching television, on 14 L Venturi Mask saturating at 93 percent, bed in lowest position, side rails up x 3, call light within reach, in no apparnet distress.
--- NOTE | 2019-09-19 21:31 | General Progress Note ---
Assessment/Plan Problem List: (1) Severe sepsis ICD Codes: A41.9 - Sepsis, unspecified organism; R65.20 - Severe sepsis without septic shock SNOMED: 29491143 (2) Constipation ICD Codes: K59.00 - Constipation, unspecified SNOMED: 06432545 (3) Cholelithiasis ICD Codes: K80.20 - Calculus of gallbladder without cholecystitis without obstruction SNOMED: 181447749 (4) Pulmonary hypertension ICD Codes: I27.20 - Pulmonary hypertension, unspecified SNOMED: 35897263 (5) Dehydration ICD Codes: E86.0 - Dehydration SNOMED: 02336544 (6) UTI (urinary tract infection) ICD Codes: N39.0 - Urinary tract infection, site not specified SNOMED: 17127624 (7) Encephalopathy ICD Codes: G93.40 - Encephalopathy, unspecified SNOMED: 60518558, 070460005 (8) Anemia ICD Codes: D64.9 - Anemia, unspecified SNOMED: 972044604 (9) Hyperlipidemia associated with type 2 diabetes mellitus ICD Codes: E11.69 - Type 2 diabetes mellitus with other specified complication ; E78.5 - Hyperlipidemia, unspecified SNOMED: 319702629, 312633123019 (10) Type 2 diabetes mellitus ICD Codes: E11.9 - Type 2 diabetes mellitus without complications SNOMED: 64828437, 508017495 Status: progressing Assessment/Plan: desatureation.consulted dr yeager r/o Pe r/o dvt imaging showed no PE and no DVT pna on face mask dm gallstones consulted dr [place] copd Subjective Respiratory: Reports: shortness of breath Allergies: Coded Allergies: No Known Allergies (Unverified , 11/08/15) Objective Last 24 Hour Vital Signs Date Time Temp Pulse Resp B/P (MAP) Pulse Ox O2 Delivery O2 Flow Rate FiO2 09/19/19 21:00 Venturi Mask 14.0 09/19/19 20:22 111 24 95 Venturi Mask 12.0 55 09/19/19 20:00 108 09/19/19 20:00 99.8 100 22 151/83 (105) 94 09/19/19 16:32 125 28 95 Venturi Mask 14.0 55 118 26 89 09/19/19 16:00 97 09/19/19 16:00 98.7 97 18 112/69 (83) 96 09/19/19 12:00 97 09/19/19 12:00 98.7 97 22 138/66 (90) 97 09/19/19 09:00 Venturi Mask 14.0 09/19/19 08:00 97.5 90 20 123/73 (90) 96 09/19/19 08:00 89 09/19/19 04:00 98 09/19/19 04:00 97.2 105 18 138/78 (98) 96 09/19/19 00:00 104 09/19/19 00:00 97.9 98 22 143/79 (100) 95 Intake and Output 09/18/19 09/19/19 19:00 07:00 Intake Total 270 ml 100 ml Output Total 900 ml Balance 270 ml -800 ml Intake Oral 270 ml 100 ml Output Urine Total 900 ml # Voids 2 # Bowel Movements 1 2 Height (Feet): 5 Height (Inches): 5.00 Weight (Pounds): 140 Amelie Rios MD Sep 19, 2019 21:31
[2019-09-19] MEDS: cefTRIAXone 1 GM in D5W 55 ML IVPB SCH (21:42)
--- NOTE | 2019-09-19 22:56 | NUR ---
NURSE NOTES: Received report from NEFTALI Wilson. Patient is awake, alert x 2, confused. Kept clean and comfortable. Provided safe environment. Patient is on simple mask, sa02 97%. No s/s of pain or discomfort noted. Bed in low and locked position. No s/s of pain or discomfort noted. IV site noted, no iv fluids infusing. Abdomen is soft and non distended. Noted with sacral/buttock redness. No heel redness, dressing noted. Call light is at bedside. Will continue plan of care.
[2019-09-20 04:00] VITALS: BP 125/76
[2019-09-20] MEDS: NovoLOG Insulin Flexpen SUBQ SCH ×4 (06:02→21:55)
--- NOTE | 2019-09-20 06:50 | NUR ---
NURSE NOTES: Patient had a bowel movement, cleaned.
--- NOTE | 2019-09-20 07:20 | NUR ---
NURSE NOTES: Called Respiratory regarding patient oxygen saturation, call light is at bedside.
--- NOTE | 2019-09-20 07:21 | NUR ---
HAND-OFF: Report given to BASSAM Culver.
--- NOTE | 2019-09-20 07:40 | NUR ---
NURSE NOTES: Received report from NEFTALI Grijalva. Patient is awake, alert x 2, confused. Able to follow commands. Kept clean and comfortable. Provided safe environment. Patient is on venturi mask and desat to 86%. Called RT and FAVIAN arrived and changed the mode to NRB mask. O2 sat increasing to 96%. No s/s of pain or discomfort noted. Bed in low and locked position. No s/s of pain or discomfort noted. IV site patent and intact noted. Abdomen is soft and non-distended. Noted with sacral/buttock redness. repositioned. No heel redness, dressing noted as prophylaxis. bed is int he lowest position. siderails are up x3. Call light is at bedside. Will continue plan of care.
[2019-09-20 08:00] VITALS: BP 139/81
[2019-09-20 08:40] LABS: BASOPHILS % (AUTO) 0.8 % (0.0-2.0); EOSINOPHILS % (AUTO) 0.2 % (0.0-3.0); HEMATOCRIT 27.4 % (37.0-47.0); HEMOGLOBIN 9.5 G/DL (12.0-16.0); LYMPHOCYTES % (AUTO) 12.5 % (20.0-45.0); MEAN CORPUSCULAR VOLUME 88 FL (80-99); NEUTROPHILS % (AUTO) 79.5 % (45.0-75.0); PLATELET COUNT 324 K/UL (150-450); RED BLOOD COUNT 3.11 M/UL (4.20-5.40); WHITE BLOOD COUNT 17.2 K/UL (4.8-10.8)
[2019-09-20] MEDS: Levodopa/Carbidopa 25/100 tab ORAL SCH ×3 (08:54→17:12)
[2019-09-20] MEDS: Docusate 100mg cap ORAL SCH ×3 (08:54→17:12)
[2019-09-20] MEDS: Nateglinide 60mg tab ORAL SCH (08:54)
[2019-09-20 09:00] LABS: ALANINE AMINOTRANSFERASE 26 U/L (12-78); ALBUMIN 2.4 G/DL (3.4-5.0); ALBUMIN/GLOBULIN RATIO 0.5 (1.0-2.7); ALKALINE PHOSPHATASE 50 U/L (46-116); ANION GAP 11 mmol/L (5-15); ASPARTATE AMINO TRANSFERASE 28 U/L (15-37); BILIRUBIN,TOTAL 0.3 MG/DL (0.2-1.0); BLOOD UREA NITROGEN 21 mg/dL (7-18); CALCIUM 8.6 MG/DL (8.5-10.1); CARBON DIOXIDE 25 MMOL/L (21-32); CHLORIDE 100 MMOL/L (98-107); CREATININE 1.6 MG/DL (0.55-1.30); PHOSPHORUS 4.2 MG/DL (2.5-4.9); POTASSIUM 4.6 MMOL/L (3.5-5.1); SODIUM 136 MMOL/L (136-145)
[2019-09-20] MEDS: Albuterol/Ipratropium 3ml neb HHN PRN (09:24)
--- NOTE | 2019-09-20 09:36 | Nephrology Progress Note ---
Assessment/Plan Problem List: (1) MER (acute kidney injury) (2) Dehydration (3) Type 2 diabetes mellitus (4) Anemia (5) UTI (urinary tract infection) Assessment Acute renal failure, most likely dehydration Will watch for underlying chronic kidney disease. Anemia, etiology to be identified Toxic metabolic encephalopathy on presentation Diabetes mellitus [id number] with hemoglobin A1c of 8.9 History of COPD History of pulmonary hypertension History of UTI, evidence of UTI on this admission Patient currently full code however on previous admission was DNR Plan Serum creatinine gonsalo to 1.6. This morning's blood sugar 455. White blood cells gonsalo to over 17,000. Continue to treat underlying infection. Continue per ID and pulmonary. Avoid nephrotoxic's. Continue to monitor renal parameters. Stop IV hydration. 1 dose of Lasix IV and 1 dose of potassium chloride p.o. ordered. Defer management of the underlying pulmonary condition to parks recreation director. Per orders. Monitor renal parameters Monitor electrolytes Keep the blood pressure and blood sugar in check Urine studies Antibiotics as needed Per consultants Subjective ROS Limited/Unobtainable: No Constitutional: Reports: malaise, weakness Objective Objective Last 24 Hour Vital Signs Date Time Temp Pulse Resp B/P (MAP) Pulse Ox O2 Delivery O2 Flow Rate FiO2 09/20/19 09:00 125 24 98 Non-Rebreather 15.0 100 115 24 97 09/20/19 08:00 97.7 109 19 139/81 (100) 97 09/20/19 04:00 98 09/20/19 04:00 98.1 83 17 125/76 (92) 97 09/20/19 00:00 94 09/19/19 23:33 99.1 95 22 120/76 (91) 96 09/19/19 21:00 Simple Mask 14.0 09/19/19 20:22 111 24 95 Venturi Mask 12.0 55 09/19/19 20:00 108 09/19/19 20:00 99.8 100 22 151/83 (105) 94 09/19/19 16:32 125 28 95 Venturi Mask 14.0 55 118 26 89 09/19/19 16:00 97 09/19/19 16:00 98.7 97 18 112/69 (83) 96 09/19/19 12:00 97 09/19/19 12:00 98.7 97 22 138/66 (90) 97 Intake and Output 09/19/19 09/20/19 19:00 07:00 Intake Total 520 ml 535 ml Output Total 850 ml 400 ml Balance -330 ml 135 ml Intake Oral 520 ml 480 ml IV Total 55 ml Output Urine Total 850 ml 400 ml # Voids 1 # Bowel Movements 2 Laboratory Tests 09/20/19 07:30: White Blood Count 17.2H, Red Blood Count 3.11L, Hemoglobin 9.5L, Hematocrit 27.4L, Mean Corpuscular Volume 88, Mean Corpuscular Hemoglobin 30.6, Mean Corpuscular Hemoglobin Concent 34.7, Red Cell Distribution Width 11.0L, Platelet Count 324, Mean Platelet Volume 4.7L, Neutrophils (%) (Auto) 79.5H, Lymphocytes (%) (Auto) 12.5L, Monocytes (%) (Auto) 7.0, Eosinophils (%) (Auto) 0.2, Basophils (%) (Auto) 0.8, Sodium Level 136, Potassium Level 4.6, Chloride Level 100, Carbon Dioxide Level 25, Anion Gap 11, Blood Urea Nitrogen 21H, Creatinine 1.6H, Estimat Glomerular Filtration Rate 32.1, Glucose Level 455H, Calcium Level 8.6, Phosphorus Level 4.2, Magnesium Level 2.0, Total Bilirubin 0.3, Aspartate Amino Transf (AST/SGOT) 28, Alanine Aminotransferase (ALT/SGPT) 26, Alkaline Phosphatase 50, C-Reactive Protein, Quantitative 10.1H, Pro-B-Type Natriuretic Peptide 23167L, Total Protein 7.3, Albumin 2.4L, Globulin 4.9, Albumin/Globulin Ratio 0.5L Height (Feet): 5 Height (Inches): 5.00 Weight (Pounds): 140 General Appearance: mild distress EENT: other - On nonrebreather mask Cardiovascular: tachycardia Respiratory/Chest: decreased breath sounds Abdomen: distended José Miguel Calvert MD Sep 20, 2019 09:36
--- NOTE | 2019-09-20 09:40 | NUR ---
NURSE NOTES: update Dr Rios and Dr Chao regarding BNP result today and WBC result. Patient is asleep with a NRB mask. Kept HOB elevated. calm and resting comfortably. will cont to monitor.
--- NOTE | 2019-09-20 10:26 | Cardiac Electrophysiology PN ---
Assessment/Plan Status Narrative 1. Patchy densities and ground-glass opacities throughout right greater than left, concerning for an infectious/inflammatory process and/or pulmonary edema. 2. Small bilateral pleural effusions. 3. No pulmonary embolus identified. 4. Mild prominence of the pulmonary artery is suggestive of pulmonary arterial hypertension. Assessment/Plan 1. Hypertension off antihypertensive agents 2. Hyperlipidemia, on Lipitor. 3. Fever and UTI on iv Abx. Ruled out for COVID. 4. Diabetes. 5. Contracted gallbladder, packed with stones by Abd US. FU GI 6. Respiratory failure, COPD and pulmonary HTN. Chest CT showed no PE. Start Lasix 4o iv bid DW RN and Dr Alonzo Subjective Subjective On iv Abx. On NRB FM now. Covid is negative. Chest CT no PE.BNP > 79873 Objective Last 24 Hour Vital Signs Date Time Temp Pulse Resp B/P (MAP) Pulse Ox O2 Delivery O2 Flow Rate FiO2 09/20/19 09:30 Non-Rebreather 14.0 09/20/19 09:00 125 24 98 Non-Rebreather 15.0 100 115 24 97 09/20/19 08:00 97.7 109 19 139/81 (100) 97 09/20/19 08:00 126 09/20/19 04:00 98 09/20/19 04:00 98.1 83 17 125/76 (92) 97 09/20/19 00:00 94 09/19/19 23:33 99.1 95 22 120/76 (91) 96 09/19/19 21:00 Simple Mask 14.0 09/19/19 20:22 111 24 95 Venturi Mask 12.0 55 09/19/19 20:00 108 09/19/19 20:00 99.8 100 22 151/83 (105) 94 09/19/19 16:32 125 28 95 Venturi Mask 14.0 55 118 26 89 09/19/19 16:00 97 09/19/19 16:00 98.7 97 18 112/69 (83) 96 09/19/19 12:00 97 09/19/19 12:00 98.7 97 22 138/66 (90) 97 Intake and Output 09/19/19 09/20/19 19:00 07:00 Intake Total 520 ml 535 ml Output Total 850 ml 400 ml Balance -330 ml 135 ml Intake Oral 520 ml 480 ml IV Total 55 ml Output Urine Total 850 ml 400 ml # Voids 1 # Bowel Movements 2 Laboratory Tests Test 09/20/19 07:30 White Blood Count 17.2 K/UL (4.8-10.8) H Red Blood Count 3.11 M/UL (4.20-5.40) L Hemoglobin 9.5 G/DL (12.0-16.0) L Hematocrit 27.4 % (37.0-47.0) L Mean Corpuscular Volume 88 FL (80-99) Mean Corpuscular Hemoglobin 30.6 PG (27.0-31.0) Mean Corpuscular Hemoglobin Concent 34.7 G/DL (32.0-36.0) Red Cell Distribution Width 11.0 % (11.6-14.8) L Platelet Count 324 K/UL (150-450) Mean Platelet Volume 4.7 FL (6.5-10.1) L Neutrophils (%) (Auto) 79.5 % (45.0-75.0) H Lymphocytes (%) (Auto) 12.5 % (20.0-45.0) L Monocytes (%) (Auto) 7.0 % (1.0-10.0) Eosinophils (%) (Auto) 0.2 % (0.0-3.0) Basophils (%) (Auto) 0.8 % (0.0-2.0) Sodium Level 136 MMOL/L (136-145) Potassium Level 4.6 MMOL/L (3.5-5.1) Chloride Level 100 MMOL/L (98-107) Carbon Dioxide Level 25 MMOL/L (21-32) Anion Gap 11 mmol/L (5-15) Blood Urea Nitrogen 21 mg/dL (7-18) H Creatinine 1.6 MG/DL (0.55-1.30) H Estimat Glomerular Filtration Rate 32.1 mL/min (>60) Glucose Level 455 MG/DL (74-106) H Calcium Level 8.6 MG/DL (8.5-10.1) Phosphorus Level 4.2 MG/DL (2.5-4.9) Magnesium Level 2.0 MG/DL (1.8-2.4) Total Bilirubin 0.3 MG/DL (0.2-1.0) Aspartate Amino Transf (AST/SGOT) 28 U/L (15-37) Alanine Aminotransferase (ALT/SGPT) 26 U/L (12-78) Alkaline Phosphatase 50 U/L (46-116) C-Reactive Protein, Quantitative 10.1 mg/dL (0.00-0.90) H Pro-B-Type Natriuretic Peptide 41596 pg/mL (0-125) H Total Protein 7.3 G/DL (6.4-8.2) Albumin 2.4 G/DL (3.4-5.0) L Globulin 4.9 g/dL Albumin/Globulin Ratio 0.5 (1.0-2.7) L Objective HEAD AND NECK: No JVD. LUNGS: Clear. CARDIOVASCULAR: Shows regular S1 and S2 with no gallop. ABDOMEN: Soft. EXTREMITIES: No pitting edema. Noe Galdamez MD Sep 20, 2019 10:26
--- NOTE | 2019-09-20 10:35 | NUR ---
NURSE NOTES: made Dr Byrne made aware re: O2 sat this am. patient is resting comfortable and saturation is stable. new order obtained and entered. will cont to monitor.
--- NOTE | 2019-09-20 10:53 | Pulmonology Progress Note ---
Subjective ROS Limited/Unobtainable: No Interval Events: ABG pending this AM; on NRBM Constitutional: Reports: no symptoms Gastrointestinal/Abdominal: Reports: no symptoms Allergies: Coded Allergies: No Known Allergies (Unverified , 11/08/15) Objective Last 24 Hour Vital Signs Date Time Temp Pulse Resp B/P (MAP) Pulse Ox O2 Delivery O2 Flow Rate FiO2 09/20/19 09:30 Non-Rebreather 14.0 09/20/19 09:00 125 24 98 Non-Rebreather 15.0 100 115 24 97 09/20/19 08:00 97.7 109 19 139/81 (100) 97 09/20/19 08:00 126 09/20/19 04:00 98 09/20/19 04:00 98.1 83 17 125/76 (92) 97 09/20/19 00:00 94 09/19/19 23:33 99.1 95 22 120/76 (91) 96 09/19/19 21:00 Simple Mask 14.0 09/19/19 20:22 111 24 95 Venturi Mask 12.0 55 09/19/19 20:00 108 09/19/19 20:00 99.8 100 22 151/83 (105) 94 09/19/19 16:32 125 28 95 Venturi Mask 14.0 55 118 26 89 09/19/19 16:00 97 09/19/19 16:00 98.7 97 18 112/69 (83) 96 09/19/19 12:00 97 09/19/19 12:00 98.7 97 22 138/66 (90) 97 Intake and Output 09/19/19 09/20/19 19:00 07:00 Intake Total 520 ml 535 ml Output Total 850 ml 400 ml Balance -330 ml 135 ml Intake Oral 520 ml 480 ml IV Total 55 ml Output Urine Total 850 ml 400 ml # Voids 1 # Bowel Movements 2 General Appearance: no acute distress HEENT: normocephalic Respiratory: decreased breath sounds Cardiovascular: normal peripheral pulses, normal rate Abdomen: normal bowel sounds, soft, non tender Extremities: no cyanosis Laboratory Tests 09/20/19 07:30: White Blood Count 17.2H, Red Blood Count 3.11L, Hemoglobin 9.5L, Hematocrit 27.4L, Mean Corpuscular Volume 88, Mean Corpuscular Hemoglobin 30.6, Mean Corpuscular Hemoglobin Concent 34.7, Red Cell Distribution Width 11.0L, Platelet Count 324, Mean Platelet Volume 4.7L, Neutrophils (%) (Auto) 79.5H, Lymphocytes (%) (Auto) 12.5L, Monocytes (%) (Auto) 7.0, Eosinophils (%) (Auto) 0.2, Basophils (%) (Auto) 0.8, Sodium Level 136, Potassium Level 4.6, Chloride Level 100, Carbon Dioxide Level 25, Anion Gap 11, Blood Urea Nitrogen 21H, Creatinine 1.6H, Estimat Glomerular Filtration Rate 32.1, Glucose Level 455H, Calcium Level 8.6, Phosphorus Level 4.2, Magnesium Level 2.0, Total Bilirubin 0.3, Aspartate Amino Transf (AST/SGOT) 28, Alanine Aminotransferase (ALT/SGPT) 26, Alkaline Phosphatase 50, C-Reactive Protein, Quantitative 10.1H, Pro-B-Type Natriuretic Peptide 71257O, Total Protein 7.3, Albumin 2.4L, Globulin 4.9, Albumin/Globulin Ratio 0.5L 09/20/19 10:33: Arterial Blood pH 7.432, Arterial Blood Partial Pressure CO2 38.3, Arterial Blood Partial Pressure O2 98.4, Arterial Blood HCO3 25.0, Arterial Blood Oxygen Saturation 96.9, Arterial Blood Base Excess 0.7, Mando Test Positive Current Medications Medications (Trade) Dose Ordered Sig/Tenzin Route PRN Reason Start Time Stop Time Status Last Admin Dose Admin Acetaminophen (Tylenol) 650 mg Q4H PRN ORAL Temp >100.5 09/16/19 23:00 10/16/19 22:59 Albuterol/ Ipratropium (Albuterol/ Ipratropium) 3 ml Q4H PRN HHN Shortness of Breath 09/19/19 16:30 09/24/19 16:29 09/20/19 09:24 Atorvastatin Calcium (Lipitor) 10 mg BEDTIME ORAL 09/17/19 21:00 12/16/19 20:59 09/19/19 21:41 Carbidopa/Levodopa (Sinemet 25/100) 1 tab THREE TIMES A DAY ORAL 09/17/19 09:00 10/17/19 08:59 09/20/19 08:54 Ceftriaxone Sodium 1 gm/ Dextrose 55 ml @ 110 mls/hr Q24H IVPB 09/17/19 21:00 09/24/19 20:59 09/19/19 21:42 Dextrose (Dextrose 50%) 25 ml Q30M PRN IV Hypoglycemia 09/16/19 23:00 12/15/19 22:59 Dextrose (Dextrose 50%) 50 ml Q30M PRN IV Hypoglycemia 09/16/19 23:00 12/15/19 22:59 Docusate Sodium (Colace) 100 mg THREE TIMES A DAY ORAL 09/17/19 09:00 10/17/19 08:59 09/20/19 08:54 Escitalopram Oxalate (Lexapro) 10 mg DAILY ORAL 09/17/19 09:00 10/17/19 08:59 09/20/19 08:54 Furosemide (Lasix) 40 mg EVERY 12 HOURS IV 09/20/19 21:00 10/20/19 20:59 Insulin Aspart (NovoLOG) BEFORE MEALS AND HS SUBQ 09/17/19 06:30 12/16/19 06:29 09/20/19 06:02 Iohexol (OMNIPAQUE-300 100ml) 100 ml ONCE PRN INJ PROCEDURE 09/19/19 09:00 09/21/19 08:59 Lorazepam (Ativan) 1 mg Q6H PRN ORAL For Anxiety 09/19/19 01:00 09/26/19 00:59 Mirtazapine (Remeron) 7.5 mg BEDTIME PRN ORAL INSOMNIA 09/19/19 01:00 12/18/19 00:59 Nateglinide (Starlix) 120 mg THREE TIMES A DAY ORAL 09/20/19 13:00 10/17/19 08:59 Pantoprazole (Protonix) 40 mg EVERY 12 HOURS ORAL 09/17/19 09:00 10/17/19 08:59 09/20/19 08:54 Assessment/Plan Assessment/Plan IMPRESSION: 1. Hypoxemia. Suspect pneumonia vs pulm edema 2. Diabetes mellitus. 3. Decubitus ulcer, sacrum. 4. UTI. 5. Hypertension. 6. Hyperlipidemia. DISCUSSION: I have reviewed echocardiogram, which shows moderate mitral regurgitation, left ventricular diastolic dysfunction and evidence of mild pulmonary hypertension based on elevated tricuspid systolic velocity. The etiology of her hypoxemia is unclear, however based on CT chest I suspect either pneumonmis or fluuid Will continue to diurese COVID 19 pcr x1 is negative Continue O2 Abx Negative venous duplex lower extremities Valery Lee Omar Syed MD Sep 20, 2019 10:53
--- NOTE | 2019-09-20 11:41 | Hematology/Onc Progress Note ---
Assessment/Plan Assessment/Plan Assessment and Recs: # Anemia of iron deficiency -- hgb remains low, anemia panel reviewed, ferritin in prior was 20 --> consider iron as needed, if low will order ferritin --> cea is 4.9 --> no hemolysis is seen --> r/o gi bleed, gi is on board --> hgb 9.5 # Leukocytosis with Sepsis likely due to uti --> has now improved --> abx: ceftriaxone --> as per Dr. Martinez --> urine cx positive --> wbc 12-->17 # Respiratory failure, r/o chf v copd --> diuresis started prn # Ryan on admission --> per renal on ivf --> per Dr. Calvert # Elevated lactic acid level --> sp abx lecquin # Type 2 diabetes mellitus --> acucchecks qac and qhs --> iss, consider endo # Stage I decubitus ulcer sacrum # Dvt ppx scds Appreciate consultation and michael Rn Subjective Constitutional: Denies: no symptoms, chills, fever, malaise, weakness, other HEENT: Denies: no symptoms, eye pain, blurred vision, tearing, double vision, ear pain, ear discharge, nose pain, nose congestion, throat pain, throat swelling, mouth pain, mouth swelling, other Cardiovascular: Denies: no symptoms, chest pain, edema, irregular heart rate, lightheadedness, palpitations, syncope, other Respiratory: Denies: no symptoms, cough, shortness of breath, SOB with excertion, SOB at rest, sputum, wheezing, other Genitourinary: Denies: no symptoms, burning, discharge, frequency, flank pain, hematuria, incontinence, pain, urgency, other Neurologic/Psychiatric: Denies: no symptoms, anxiety, depressed, emotional problems, headache, numbness, paresthesia, pre-existing deficit, seizure, tingling, tremors, weakness, other Endocrine: Denies: no symptoms, excessive sweating, flushing, intolerance to cold, intolerance to heat, increased hunger, increased thirst, increased urine, unexplained weight gain, unexplained weight loss, other Allergies: Coded Allergies: No Known Allergies (Unverified , 11/08/15) Subjective 09/18 tele, no acute events, nc, labs pending 09/19 labs are reviewed, no bleeding, wbc 17, on abx on diurestic, ct noted Objective Objective Current Medications Medications (Trade) Dose Ordered Sig/Tenzin Route PRN Reason Start Time Stop Time Status Last Admin Dose Admin Acetaminophen (Tylenol) 650 mg Q4H PRN ORAL Temp >100.5 09/16/19 23:00 10/16/19 22:59 Albuterol/ Ipratropium (Albuterol/ Ipratropium) 3 ml Q4H PRN HHN Shortness of Breath 09/19/19 16:30 09/24/19 16:29 09/20/19 09:24 Atorvastatin Calcium (Lipitor) 10 mg BEDTIME ORAL 09/17/19 21:00 12/16/19 20:59 09/19/19 21:41 Carbidopa/Levodopa (Sinemet 25/100) 1 tab THREE TIMES A DAY ORAL 09/17/19 09:00 10/17/19 08:59 09/20/19 08:54 Ceftriaxone Sodium 1 gm/ Dextrose 55 ml @ 110 mls/hr Q24H IVPB 09/17/19 21:00 09/24/19 20:59 09/19/19 21:42 Dextrose (Dextrose 50%) 25 ml Q30M PRN IV Hypoglycemia 09/16/19 23:00 12/15/19 22:59 Dextrose (Dextrose 50%) 50 ml Q30M PRN IV Hypoglycemia 09/16/19 23:00 12/15/19 22:59 Docusate Sodium (Colace) 100 mg THREE TIMES A DAY ORAL 09/17/19 09:00 10/17/19 08:59 09/20/19 08:54 Escitalopram Oxalate (Lexapro) 10 mg DAILY ORAL 09/17/19 09:00 10/17/19 08:59 09/20/19 08:54 Furosemide (Lasix) 40 mg EVERY 12 HOURS IV 09/20/19 21:00 10/20/19 20:59 Insulin Aspart (NovoLOG) BEFORE MEALS AND HS SUBQ 09/17/19 06:30 12/16/19 06:29 09/20/19 06:02 Iohexol (OMNIPAQUE-300 100ml) 100 ml ONCE PRN INJ PROCEDURE 09/19/19 09:00 09/21/19 08:59 Lorazepam (Ativan) 1 mg Q6H PRN ORAL For Anxiety 09/19/19 01:00 09/26/19 00:59 Mirtazapine (Remeron) 7.5 mg BEDTIME PRN ORAL INSOMNIA 09/19/19 01:00 12/18/19 00:59 Nateglinide (Starlix) 120 mg THREE TIMES A DAY ORAL 09/20/19 13:00 10/17/19 08:59 Pantoprazole (Protonix) 40 mg EVERY 12 HOURS ORAL 09/17/19 09:00 10/17/19 08:59 09/20/19 08:54 Last 24 Hour Vital Signs Date Time Temp Pulse Resp B/P (MAP) Pulse Ox O2 Delivery O2 Flow Rate FiO2 09/20/19 09:30 Non-Rebreather 14.0 09/20/19 09:00 125 24 98 Non-Rebreather 15.0 100 115 24 97 09/20/19 08:00 97.7 109 19 139/81 (100) 97 09/20/19 08:00 126 09/20/19 04:00 98 09/20/19 04:00 98.1 83 17 125/76 (92) 97 09/20/19 00:00 94 09/19/19 23:33 99.1 95 22 120/76 (91) 96 09/19/19 21:00 Simple Mask 14.0 09/19/19 20:22 111 24 95 Venturi Mask 12.0 55 09/19/19 20:00 108 09/19/19 20:00 99.8 100 22 151/83 (105) 94 09/19/19 16:32 125 28 95 Venturi Mask 14.0 55 118 26 89 09/19/19 16:00 97 09/19/19 16:00 98.7 97 18 112/69 (83) 96 09/19/19 12:00 97 09/19/19 12:00 98.7 97 22 138/66 (90) 97 09/19/19 09:00 Venturi Mask 14.0 09/19/19 08:00 97.5 90 20 123/73 (90) 96 09/19/19 08:00 89 09/19/19 04:00 98 09/19/19 04:00 97.2 105 18 138/78 (98) 96 09/19/19 00:00 104 09/19/19 00:00 97.9 98 22 143/79 (100) 95 09/18/19 21:00 Nasal Cannula 1.0 09/18/19 20:00 103 09/18/19 20:00 98.1 100 18 145/88 (107) 97 09/18/19 16:00 101 09/18/19 16:00 96.8 102 18 147/73 (97) 93 09/18/19 12:00 96.6 89 18 127/80 (96) 94 09/18/19 12:00 86 Intake and Output 09/19/19 09/20/19 19:00 07:00 Intake Total 520 ml 535 ml Output Total 850 ml 400 ml Balance -330 ml 135 ml Intake Oral 520 ml 480 ml IV Total 55 ml Output Urine Total 850 ml 400 ml # Voids 1 # Bowel Movements 2 Labs Test 09/18/19 08:05 09/20/19 07:30 09/20/19 10:33 White Blood Count 10.3 K/UL (4.8-10.8) 17.2 K/UL (4.8-10.8) Red Blood Count 3.10 M/UL (4.20-5.40) 3.11 M/UL (4.20-5.40) Hemoglobin 9.5 G/DL (12.0-16.0) 9.5 G/DL (12.0-16.0) Hematocrit 27.5 % (37.0-47.0) 27.4 % (37.0-47.0) Mean Corpuscular Volume 89 FL (80-99) 88 FL (80-99) Mean Corpuscular Hemoglobin 30.7 PG (27.0-31.0) 30.6 PG (27.0-31.0) Mean Corpuscular Hemoglobin Concent 34.6 G/DL (32.0-36.0) 34.7 G/DL (32.0-36.0) Red Cell Distribution Width 10.9 % (11.6-14.8) 11.0 % (11.6-14.8) Platelet Count 262 K/UL (150-450) 324 K/UL (150-450) Mean Platelet Volume 5.3 FL (6.5-10.1) 4.7 FL (6.5-10.1) Neutrophils (%) (Auto) 66.2 % (45.0-75.0) 79.5 % (45.0-75.0) Lymphocytes (%) (Auto) 20.3 % (20.0-45.0) 12.5 % (20.0-45.0) Monocytes (%) (Auto) 11.7 % (1.0-10.0) 7.0 % (1.0-10.0) Eosinophils (%) (Auto) 1.1 % (0.0-3.0) 0.2 % (0.0-3.0) Basophils (%) (Auto) 0.6 % (0.0-2.0) 0.8 % (0.0-2.0) Sodium Level 137 MMOL/L (136-145) 136 MMOL/L (136-145) Potassium Level 3.9 MMOL/L (3.5-5.1) 4.6 MMOL/L (3.5-5.1) Chloride Level 102 MMOL/L (98-107) 100 MMOL/L (98-107) Carbon Dioxide Level 28 MMOL/L (21-32) 25 MMOL/L (21-32) Anion Gap 7 mmol/L (5-15) 11 mmol/L (5-15) Blood Urea Nitrogen 23 mg/dL (7-18) 21 mg/dL (7-18) Creatinine 1.2 MG/DL (0.55-1.30) 1.6 MG/DL (0.55-1.30) Estimat Glomerular Filtration Rate 44.7 mL/min (>60) 32.1 mL/min (>60) Glucose Level 226 MG/DL (74-106) 455 MG/DL (74-106) Uric Acid 7.2 MG/DL (2.6-7.2) Calcium Level 8.2 MG/DL (8.5-10.1) 8.6 MG/DL (8.5-10.1) Phosphorus Level 2.7 MG/DL (2.5-4.9) 4.2 MG/DL (2.5-4.9) Magnesium Level 1.9 MG/DL (1.8-2.4) 2.0 MG/DL (1.8-2.4) Total Bilirubin 0.1 MG/DL (0.2-1.0) 0.3 MG/DL (0.2-1.0) Aspartate Amino Transf (AST/SGOT) 36 U/L (15-37) 28 U/L (15-37) Alanine Aminotransferase (ALT/SGPT) 29 U/L (12-78) 26 U/L (12-78) Alkaline Phosphatase 47 U/L (46-116) 50 U/L (46-116) Troponin I 0.003 ng/mL (0.000-0.056) C-Reactive Protein, Quantitative 3.8 mg/dL (0.00-0.90) 10.1 mg/dL (0.00-0.90) Pro-B-Type Natriuretic Peptide 3009 pg/mL (0-125) 08213 pg/mL (0-125) Total Protein 6.8 G/DL (6.4-8.2) 7.3 G/DL (6.4-8.2) Albumin 2.5 G/DL (3.4-5.0) 2.4 G/DL (3.4-5.0) Globulin 4.3 g/dL 4.9 g/dL Albumin/Globulin Ratio 0.6 (1.0-2.7) 0.5 (1.0-2.7) Arterial Blood pH 7.432 (7.350-7.450) Arterial Blood Partial Pressure CO2 38.3 mmHg (35.0-45.0) Arterial Blood Partial Pressure O2 98.4 mmHg (75.0-100.0) Arterial Blood HCO3 25.0 mmol/L (22.0-26.0) Arterial Blood Oxygen Saturation 96.9 % (95-100) Arterial Blood Base Excess 0.7 (-2-2) Mando Test Positive Height (Feet): 5 Height (Inches): 5.00 Weight (Pounds): 140 Objective Physical Exam Vitals: reviewed General: alert, non-toxic, thin, other - Frail, Chronically Ill Head: normocephalic, atraumatic Heent: bilateral eye normal inspection, bilateral eye PERRl Respiratory: lungs clear, normal breath sounds, Cardiovascular: regular rate, rhythm, no edema Gi: non tender, soft, decreased bowel sounds Gu: no CVA tenderness Msk: no calf tenderness, + Atrophy Neuro: alert, sensory intact, w motor weakness Psychiatric: mood/affect normal Skin: ++ Danie Jakcson MD Sep 20, 2019 11:41
[2019-09-20 12:00] VITALS: BP 150/90
--- NOTE | 2019-09-20 12:16 | Infectious Diseases Prog Note ---
Assessment/Plan Assessment/Plan IMPRESSION: Sepsis with leukocytosis and fever. E. coli UTI. Diabetes mellitus with hyperglycemia, COPD, Hypertension, pulmonary hypertension, Diastolic CHF, Parkinson disease, anemia, major depression. RECOMMENDATION: We will continue ceftriaxone. F/U CBC F/U CXR Subjective ROS Limited/Unobtainable: Yes Constitutional: Reports: other Allergies: Coded Allergies: No Known Allergies (Unverified , 11/08/15) Objective Vital Signs Last 24 Hour Vital Signs Date Time Temp Pulse Resp B/P (MAP) Pulse Ox O2 Delivery O2 Flow Rate FiO2 09/20/19 09:30 Non-Rebreather 14.0 09/20/19 09:00 125 24 98 Non-Rebreather 15.0 100 115 24 97 09/20/19 08:00 97.7 109 19 139/81 (100) 97 09/20/19 08:00 126 09/20/19 04:00 98 09/20/19 04:00 98.1 83 17 125/76 (92) 97 09/20/19 00:00 94 09/19/19 23:33 99.1 95 22 120/76 (91) 96 09/19/19 21:00 Simple Mask 14.0 09/19/19 20:22 111 24 95 Venturi Mask 12.0 55 09/19/19 20:00 108 09/19/19 20:00 99.8 100 22 151/83 (105) 94 09/19/19 16:32 125 28 95 Venturi Mask 14.0 55 118 26 89 09/19/19 16:00 97 09/19/19 16:00 98.7 97 18 112/69 (83) 96 Height (Feet): 5 Height (Inches): 5.00 Weight (Pounds): 140 HEENT: mucous membranes moist Respiratory/Chest: lungs clear, other Cardiovascular: tachycardia Abdomen: soft, non tender Extremities: no edema Neurologic/Psychiatric: alert, responsive Laboratory Tests Test 09/20/19 07:30 09/20/19 10:33 White Blood Count 17.2 K/UL (4.8-10.8) H Red Blood Count 3.11 M/UL (4.20-5.40) L Hemoglobin 9.5 G/DL (12.0-16.0) L Hematocrit 27.4 % (37.0-47.0) L Mean Corpuscular Volume 88 FL (80-99) Mean Corpuscular Hemoglobin 30.6 PG (27.0-31.0) Mean Corpuscular Hemoglobin Concent 34.7 G/DL (32.0-36.0) Red Cell Distribution Width 11.0 % (11.6-14.8) L Platelet Count 324 K/UL (150-450) Mean Platelet Volume 4.7 FL (6.5-10.1) L Neutrophils (%) (Auto) 79.5 % (45.0-75.0) H Lymphocytes (%) (Auto) 12.5 % (20.0-45.0) L Monocytes (%) (Auto) 7.0 % (1.0-10.0) Eosinophils (%) (Auto) 0.2 % (0.0-3.0) Basophils (%) (Auto) 0.8 % (0.0-2.0) Sodium Level 136 MMOL/L (136-145) Potassium Level 4.6 MMOL/L (3.5-5.1) Chloride Level 100 MMOL/L (98-107) Carbon Dioxide Level 25 MMOL/L (21-32) Anion Gap 11 mmol/L (5-15) Blood Urea Nitrogen 21 mg/dL (7-18) H Creatinine 1.6 MG/DL (0.55-1.30) H Estimat Glomerular Filtration Rate 32.1 mL/min (>60) Glucose Level 455 MG/DL (74-106) H Calcium Level 8.6 MG/DL (8.5-10.1) Phosphorus Level 4.2 MG/DL (2.5-4.9) Magnesium Level 2.0 MG/DL (1.8-2.4) Total Bilirubin 0.3 MG/DL (0.2-1.0) Aspartate Amino Transf (AST/SGOT) 28 U/L (15-37) Alanine Aminotransferase (ALT/SGPT) 26 U/L (12-78) Alkaline Phosphatase 50 U/L (46-116) C-Reactive Protein, Quantitative 10.1 mg/dL (0.00-0.90) H Pro-B-Type Natriuretic Peptide 11959 pg/mL (0-125) H Total Protein 7.3 G/DL (6.4-8.2) Albumin 2.4 G/DL (3.4-5.0) L Globulin 4.9 g/dL Albumin/Globulin Ratio 0.5 (1.0-2.7) L Arterial Blood pH 7.432 (7.350-7.450) Arterial Blood Partial Pressure CO2 38.3 mmHg (35.0-45.0) Arterial Blood Partial Pressure O2 98.4 mmHg (75.0-100.0) Arterial Blood HCO3 25.0 mmol/L (22.0-26.0) Arterial Blood Oxygen Saturation 96.9 % (95-100) Arterial Blood Base Excess 0.7 (-2-2) Mando Test Positive Current Medications Medications (Trade) Dose Ordered Sig/Tenzin Route PRN Reason Start Time Stop Time Status Last Admin Dose Admin Acetaminophen (Tylenol) 650 mg Q4H PRN ORAL Temp >100.5 09/16/19 23:00 10/16/19 22:59 Albuterol/ Ipratropium (Albuterol/ Ipratropium) 3 ml Q4H PRN HHN Shortness of Breath 09/19/19 16:30 09/24/19 16:29 09/20/19 09:24 Atorvastatin Calcium (Lipitor) 10 mg BEDTIME ORAL 09/17/19 21:00 12/16/19 20:59 09/19/19 21:41 Carbidopa/Levodopa (Sinemet /) 1 tab THREE TIMES A DAY ORAL 09/17/19 09:00 10/17/19 08:59 09/20/19 08:54 Ceftriaxone Sodium 1 gm/ Dextrose 55 ml @ 110 mls/hr Q24H IVPB 09/17/19 21:00 09/24/19 20:59 09/19/19 21:42 Dextrose (Dextrose 50%) 25 ml Q30M PRN IV Hypoglycemia 09/16/19 23:00 12/15/19 22:59 Dextrose (Dextrose 50%) 50 ml Q30M PRN IV Hypoglycemia 09/16/19 23:00 12/15/19 22:59 Docusate Sodium (Colace) 100 mg THREE TIMES A DAY ORAL 09/17/19 09:00 10/17/19 08:59 09/20/19 08:54 Escitalopram Oxalate (Lexapro) 10 mg DAILY ORAL 09/17/19 09:00 10/17/19 08:59 09/20/19 08:54 Furosemide (Lasix) 40 mg EVERY 12 HOURS IV 09/20/19 21:00 10/20/19 20:59 Insulin Aspart (NovoLOG) BEFORE MEALS AND HS SUBQ 09/17/19 06:30 12/16/19 06:29 09/20/19 06:02 Iohexol (OMNIPAQUE-300 100ml) 100 ml ONCE PRN INJ PROCEDURE 09/19/19 09:00 09/21/19 08:59 Lorazepam (Ativan) 1 mg Q6H PRN ORAL For Anxiety 09/19/19 01:00 09/26/19 00:59 Mirtazapine (Remeron) 7.5 mg BEDTIME PRN ORAL INSOMNIA 09/19/19 01:00 12/18/19 00:59 Nateglinide (Starlix) 120 mg THREE TIMES A DAY ORAL 09/20/19 13:00 10/17/19 08:59 Pantoprazole (Protonix) 40 mg EVERY 12 HOURS ORAL 09/17/19 09:00 10/17/19 08:59 09/20/19 08:54 Rogelio Martinez MD Sep 20, 2019 12:16
--- NOTE | 2019-09-20 14:25 | NUR ---
ST NOTES: SWALLOW STATUS UPDATES ON CURRENT CXR 09/19/19. Patchy densities and ground-glass opacities throughout right greater than left, concerning for an infectious/inflammatory process and/or pulmonary edema. 2. Small bilateral pleural effusions. 3. No pulmonary embolus identified. 4. Mild prominence of the pulmonary artery is suggestive of pulmonary arterial hypertension. PER RN, THE PATIENT NOW IS ON NON-REBREATHER 15 LITERS (WAS ON VENTURIMASK YESTERDAY) AND WILL DESATURATE (NOT READY FOR NASAL CANNULA). ALTHOUGH IS IS LESS SAFE TO HAVE PO WITH NON-REBREATHER (NRB), THE PT IS NOT RECEPTIVE TO TEMPORARY NONORAL FEEDINGS (LIKE NGT AND HAD PEG BEFORE PER REPORT). PER FRANCISCO LINDASY, THE PT WILL NOT DESAT WHEN TAKING PO WITH NRB. PATIENT ALERT. PER FRANCISCO LINDSAY, AND CIPRIANO HAN,THE PATIENT IS NOT TAKING MUCH PO INTAKE PUREED. ONLY TAKES A FEW TSP AND THEN REFUSES. INTAKE AT REFUSED X2 AND 50% MAX ON PUREED AND NECTAR THICK LIQUIDS. PER PATIENT, SHE HAS NO APPETITE BUT SHE IS RECEPTIVE TO HIGH CALORIE SUPPLEMENTS ALL FLAVORS. WILL HOLD ON PO TRIALS OF THIN LIQUIDS GIVEN HIGH SILENT ASPIRATION RISK (DEMENTIA, PD (ON SINEMET) AND COPD DIAGNOSES) AND RECENT CHEST/THORAX CTA. ST GAVE PATIENT PO TRIAL OF NECTAR THICK LIQUIDS VIA STRAW AND CUP ONE SIP AT A TIME, NO OVERT ASPIRATION AND RESP RATE STABLE AT 22 BPM. PLAN: CONTINUE WITH CURRENT PUREED AND NECTAR THICK LIQUIDS WITH POSTED ASPIRATION PRECAUTIONS AND ONE TO ONE FEEDING. SEND HIGH SRIRAM SUP PER RD (DM GLUCERNA LIKELY BUT RD NOT AVAILABLE) AND CONSIDER 24 HOUR CALORIE COUNT. CONSIDER APPETITE STIMULANT IF APPROPRIATE. CONSIDER MOD BARIUM SWALLOW STUDY IP OR OP IF DC (NOT AVAILABLE TODAY)
--- NOTE | 2019-09-20 15:15 | NUR ---
CASE MANAGEMENT:REVIEW 09/20/19 SI: HYPOXEMIA. UTI. BILATERAL PLEURAL EFFUSIONS 98.1 113 21 150/90 98% ON 14L VIA NON REBREATHER WBC+17.2 H/H-9.5/27.4 BUN+21 CR+1.6 IS: IV ROCEPHIN Q24 IV LASIX Q12 STARLIX PO TID LEXAPRO PO QD PROTONIX PO Q12 DUONEB HHN Q4HRS PRN : TELEMETRY STATUS DCP: FROM [facility]
[2019-09-20 16:00] VITALS: BP 106/80
--- NOTE | 2019-09-20 16:34 | NUR ---
NURSE NOTES: patient changed back to venturi mask 14L /55FiO2 and o2 sat is between 88-92%. resting and able to verbalize needs. no indications of SOB at the moment. will cont to monitor.
--- NOTE | 2019-09-20 16:38 | NUR ---
NURSE NOTES:WOUND CARE NOTES:Pt presented on admission with Non-Blanching erythema without induration Sacrum, R and L gluteal cheeks extending into R and L ischiums. R heel is boggy with Non-Blanching erythema. L Heel is boggy with Non-Blanching erythema. Tx.Plan: Apply Moisture Barrier Paste to Buttocks. Cover Sacrum with Optifoam drsg. Change every 3 days and prn. Apply Moisture Barrier Paste to surrounding R and L gluteus and bilat ischial tuberosities with each Incontinence care. Cover Bony Prominences as needed with Optifoam drsgs. Apply Cavilon Skin Barrier to to both heels. Cover each heel with Optifoam drsg.Change every 7 days and prn. Reposition at least every 2 hours or as tolerated. Off-load heels with Pillow.
--- NOTE | 2019-09-20 18:14 | NUR ---
NURSE NOTES: patient O2 sat is @ 92% on venturi mask. resting comfortably and able to interact well. Kept HOB elevated. NO significant change in condition. will cont to monitor.
--- NOTE | 2019-09-20 19:04 | NUR ---
NURSE NOTES: Received hand-off report from NEFTALI Lopez. Patient is resting in bed, semi-fowlers. Patient is in stable condition. Left AC 20g IV is intact, dry, clean, patent and flushing well. Changed IV site dressing, cleansed site with alcohol, replaced with transparent dressing. Call light within reach, cardiac leads on, salesperson women's dresses working, bed in low and locked position, bed alarm activated.
--- NOTE | 2019-09-20 19:04 | NUR ---
HAND-OFF: Report given to Mateusz.
[2019-09-20 20:00] VITALS: BP 119/89
[2019-09-20] MEDS: cefTRIAXone 1 GM in D5W 55 ML IVPB SCH (21:51)
--- NOTE | 2019-09-20 22:27 | General Progress Note ---
Assessment/Plan Problem List: (1) Severe sepsis ICD Codes: A41.9 - Sepsis, unspecified organism; R65.20 - Severe sepsis without septic shock SNOMED: 09648951 (2) Constipation ICD Codes: K59.00 - Constipation, unspecified SNOMED: 02967455 (3) Cholelithiasis ICD Codes: K80.20 - Calculus of gallbladder without cholecystitis without obstruction SNOMED: 871954881 (4) Pulmonary hypertension ICD Codes: I27.20 - Pulmonary hypertension, unspecified SNOMED: 88251528 (5) Dehydration ICD Codes: E86.0 - Dehydration SNOMED: 05929473 (6) UTI (urinary tract infection) ICD Codes: N39.0 - Urinary tract infection, site not specified SNOMED: 50057085 (7) Encephalopathy ICD Codes: G93.40 - Encephalopathy, unspecified SNOMED: 14706394, 188120969 (8) Anemia ICD Codes: D64.9 - Anemia, unspecified SNOMED: 904835939 (9) Hyperlipidemia associated with type 2 diabetes mellitus ICD Codes: E11.69 - Type 2 diabetes mellitus with other specified complication ; E78.5 - Hyperlipidemia, unspecified SNOMED: 959634298, 056209685258 (10) Type 2 diabetes mellitus ICD Codes: E11.9 - Type 2 diabetes mellitus without complications SNOMED: 67212695, 577755672 Status: progressing Assessment/Plan: desatureated this am on venturi mask still on venturi greg 14 liter requires high oxygen leukocytosi unastable for dr dr yeager also said is unstable for dc no pe on impaging s/p svt s/p tachypnia on face mask dm gallstones consulted dr [place] [facility] Subjective ROS Limited/Unobtainable: Yes Respiratory: Reports: shortness of breath Allergies: Coded Allergies: No Known Allergies (Unverified , 11/08/15) Objective Last 24 Hour Vital Signs Date Time Temp Pulse Resp B/P (MAP) Pulse Ox O2 Delivery O2 Flow Rate FiO2 09/20/19 20:00 86 09/20/19 20:00 98.9 87 20 119/89 (99) 97 09/20/19 16:00 96.7 102 18 106/80 (89) 98 09/20/19 16:00 84 09/20/19 12:00 93 09/20/19 12:00 98.1 113 21 150/90 (110) 98 09/20/19 09:30 Non-Rebreather 14.0 09/20/19 09:00 125 24 98 Non-Rebreather 15.0 100 115 24 97 09/20/19 08:00 97.7 109 19 139/81 (100) 97 09/20/19 08:00 126 09/20/19 04:00 98 09/20/19 04:00 98.1 83 17 125/76 (92) 97 09/20/19 00:00 94 09/19/19 23:33 99.1 95 22 120/76 (91) 96 Intake and Output 09/19/19 09/20/19 19:00 07:00 Intake Total 520 ml 535 ml Output Total 850 ml 400 ml Balance -330 ml 135 ml Intake Oral 520 ml 480 ml IV Total 55 ml Output Urine Total 850 ml 400 ml # Voids 1 # Bowel Movements 2 Laboratory Tests 09/20/19 07:30: White Blood Count 17.2H, Red Blood Count 3.11L, Hemoglobin 9.5L, Hematocrit 27.4L, Mean Corpuscular Volume 88, Mean Corpuscular Hemoglobin 30.6, Mean Corpuscular Hemoglobin Concent 34.7, Red Cell Distribution Width 11.0L, Platelet Count 324, Mean Platelet Volume 4.7L, Neutrophils (%) (Auto) 79.5H, Lymphocytes (%) (Auto) 12.5L, Monocytes (%) (Auto) 7.0, Eosinophils (%) (Auto) 0.2, Basophils (%) (Auto) 0.8, Sodium Level 136, Potassium Level 4.6, Chloride Level 100, Carbon Dioxide Level 25, Anion Gap 11, Blood Urea Nitrogen 21H, Creatinine 1.6H, Estimat Glomerular Filtration Rate 32.1, Glucose Level 455H, Calcium Level 8.6, Phosphorus Level 4.2, Magnesium Level 2.0, Total Bilirubin 0.3, Aspartate Amino Transf (AST/SGOT) 28, Alanine Aminotransferase (ALT/SGPT) 26, Alkaline Phosphatase 50, C-Reactive Protein, Quantitative 10.1H, Pro-B-Type Natriuretic Peptide 15378U, Total Protein 7.3, Albumin 2.4L, Globulin 4.9, Albumin/Globulin Ratio 0.5L 6/8/20 10:33: Arterial Blood pH 7.432, Arterial Blood Partial Pressure CO2 38.3, Arterial Blood Partial Pressure O2 98.4, Arterial Blood HCO3 25.0, Arterial Blood Oxygen Saturation 96.9, Arterial Blood Base Excess 0.7, Mando Test Positive Height (Feet): 5 Height (Inches): 5.00 Weight (Pounds): 140 Amelie Rios MD Sep 20, 2019 22:27
--- NOTE | 2019-09-20 23:25 | Psych Consult Progress Note ---
Psychiatry Progress Note Psychiatry Progress Note Subjective the pt is somewhat confused with episodes o anxiety Medications Current Medications Medications (Trade) Dose Ordered Sig/Tenzin Route PRN Reason Start Time Stop Time Status Last Admin Dose Admin Acetaminophen (Tylenol) 650 mg Q4H PRN ORAL Temp >100.5 09/16/19 23:00 10/16/19 22:59 Albuterol/ Ipratropium (Albuterol/ Ipratropium) 3 ml Q4H PRN HHN Shortness of Breath 09/19/19 16:30 09/24/19 16:29 09/20/19 09:24 Atorvastatin Calcium (Lipitor) 10 mg BEDTIME ORAL 09/17/19 21:00 12/16/19 20:59 09/20/19 21:49 Carbidopa/Levodopa (Sinemet 25/100) 1 tab THREE TIMES A DAY ORAL 09/17/19 09:00 10/17/19 08:59 09/20/19 17:12 Ceftriaxone Sodium 1 gm/ Dextrose 55 ml @ 110 mls/hr Q24H IVPB 09/17/19 21:00 09/24/19 20:59 09/20/19 21:51 Dextrose (Dextrose 50%) 25 ml Q30M PRN IV Hypoglycemia 09/16/19 23:00 12/15/19 22:59 Dextrose (Dextrose 50%) 50 ml Q30M PRN IV Hypoglycemia 09/16/19 23:00 12/15/19 22:59 Docusate Sodium (Colace) 100 mg THREE TIMES A DAY ORAL 09/17/19 09:00 10/17/19 08:59 09/20/19 17:12 Escitalopram Oxalate (Lexapro) 10 mg DAILY ORAL 09/17/19 09:00 10/17/19 08:59 09/20/19 08:54 Furosemide (Lasix) 40 mg EVERY 12 HOURS IV 09/20/19 21:00 10/20/19 20:59 09/20/19 21:49 Insulin Aspart (NovoLOG) BEFORE MEALS AND HS SUBQ 09/17/19 06:30 12/16/19 06:29 09/20/19 21:55 Iohexol (OMNIPAQUE-300 100ml) 100 ml ONCE PRN INJ PROCEDURE 09/19/19 09:00 09/21/19 08:59 Lorazepam (Ativan) 1 mg Q6H PRN ORAL For Anxiety 09/19/19 01:00 09/26/19 00:59 Mirtazapine (Remeron) 7.5 mg BEDTIME PRN ORAL INSOMNIA 09/19/19 01:00 12/18/19 00:59 Nateglinide (Starlix) 120 mg THREE TIMES A DAY ORAL 09/20/19 13:00 10/17/19 08:59 09/20/19 17:11 Pantoprazole (Protonix) 40 mg EVERY 12 HOURS ORAL 09/17/19 09:00 10/17/19 08:59 09/20/19 21:49 Neurological/Psychiatric: Reports: anxiety Allergies: Coded Allergies: No Known Allergies (Unverified , 11/08/15) Objective Data Height (Feet): 5 Height (Inches): 5.00 Weight (Pounds): 140 General Appearance: alert, confused, agitated Appearance: no abnormalities noted Behavior Mannerisms: poor eye contact Mental Status Exam - Affect: constricted Mental Status Exam - Mood: depressed, anxious Mental Status Exam - Thought P: tangential Mental Status Exam - Suicidal: not present Assessment/Plan Status: progressing Assessment/Plan: alert and oriented times self. Mood is anxious. Affect is flat. Thought process, there is a paucity of thought content. Thought content, no suicidal or homicidal ideation. Cognition is impaired. Insight and judgment are impaired. ASSESSMENT: Buckner I Acute encephalopathy. Major depressive disorder. Anxiety disorder. PLAN: 1. Lexapro 10 mg in the morning 2. remeron 7.5 mg po qhs Stephanie Ybarra MD Sep 20, 2019 23:25
[2019-09-21] VITALS: BP 109/60
[2019-09-21 04:00] VITALS: BP 152/77
[2019-09-21] MEDS: NovoLOG Insulin Flexpen SUBQ SCH ×4 (06:22→20:56)
--- NOTE | 2019-09-21 06:27 | Hematology/Onc Progress Note ---
Assessment/Plan Assessment/Plan Assessment and Recs: # Anemia of iron deficiency -- hgb remains low, anemia panel reviewed, ferritin in prior was 20 --> consider iron as needed, if low will order ferritin --> cea is 4.9 --> no hemolysis is seen --> r/o gi bleed, gi is on board --> hgb 9.5 # Leukocytosis with Sepsis likely due to uti --> has now improved --> abx: ceftriaxone --> as per Dr. Martinez --> urine cx positive --> wbc 12-->17 # Respiratory failure, r/o chf v copd --> diuresis started prn # Ryan on admission --> per renal on ivf --> per Dr. Calvert # Elevated lactic acid level --> sp abx lecquin # Type 2 diabetes mellitus --> acucchecks qac and qhs --> iss, consider endo # Stage I decubitus ulcer sacrum # Dvt ppx scds Appreciate consultation and dw Rn Subjective Allergies: Coded Allergies: No Known Allergies (Unverified , 11/08/15) Subjective 09/18 tele, no acute events, nc, labs pending 09/19 labs are reviewed, no bleeding, wbc 17, on abx on diurestic, ct noted 09/20 tachy, nrb 14L, iv abx, afebrile, labs pending Objective Objective Current Medications Medications (Trade) Dose Ordered Sig/Tenzin Route PRN Reason Start Time Stop Time Status Last Admin Dose Admin Acetaminophen (Tylenol) 650 mg Q4H PRN ORAL Temp >100.5 09/16/19 23:00 10/16/19 22:59 Albuterol/ Ipratropium (Albuterol/ Ipratropium) 3 ml Q4H PRN HHN Shortness of Breath 09/19/19 16:30 09/24/19 16:29 09/20/19 09:24 Atorvastatin Calcium (Lipitor) 10 mg BEDTIME ORAL 09/17/19 21:00 12/16/19 20:59 09/20/19 21:49 Carbidopa/Levodopa (Sinemet 25/100) 1 tab THREE TIMES A DAY ORAL 09/17/19 09:00 10/17/19 08:59 09/20/19 17:12 Ceftriaxone Sodium 1 gm/ Dextrose 55 ml @ 110 mls/hr Q24H IVPB 09/17/19 21:00 09/24/19 20:59 09/20/19 21:51 Dextrose (Dextrose 50%) 25 ml Q30M PRN IV Hypoglycemia 09/16/19 23:00 12/15/19 22:59 Dextrose (Dextrose 50%) 50 ml Q30M PRN IV Hypoglycemia 09/16/19 23:00 12/15/19 22:59 Docusate Sodium (Colace) 100 mg THREE TIMES A DAY ORAL 09/17/19 09:00 10/17/19 08:59 09/20/19 17:12 Escitalopram Oxalate (Lexapro) 10 mg DAILY ORAL 09/17/19 09:00 10/17/19 08:59 09/20/19 08:54 Furosemide (Lasix) 40 mg EVERY 12 HOURS IV 09/20/19 21:00 10/20/19 20:59 09/20/19 21:49 Insulin Aspart (NovoLOG) BEFORE MEALS AND HS SUBQ 09/17/19 06:30 12/16/19 06:29 09/20/19 21:55 Iohexol (OMNIPAQUE-300 100ml) 100 ml ONCE PRN INJ PROCEDURE 09/19/19 09:00 09/21/19 08:59 Lorazepam (Ativan) 1 mg Q6H PRN ORAL For Anxiety 09/19/19 01:00 09/26/19 00:59 Mirtazapine (Remeron) 7.5 mg BEDTIME PRN ORAL INSOMNIA 09/19/19 01:00 12/18/19 00:59 Nateglinide (Starlix) 120 mg THREE TIMES A DAY ORAL 09/20/19 13:00 10/17/19 08:59 09/20/19 17:11 Pantoprazole (Protonix) 40 mg EVERY 12 HOURS ORAL 09/17/19 09:00 10/17/19 08:59 09/20/19 21:49 Last 24 Hour Vital Signs Date Time Temp Pulse Resp B/P (MAP) Pulse Ox O2 Delivery O2 Flow Rate FiO2 09/21/19 04:00 98.5 103 18 152/77 (102) 93 09/21/19 04:00 111 09/21/19 00:00 98.8 88 19 109/60 (76) 98 09/21/19 00:00 85 09/20/19 21:00 Non-Rebreather 14.0 09/20/19 20:00 86 09/20/19 20:00 98.9 87 20 119/89 (99) 97 09/20/19 16:00 96.7 102 18 106/80 (89) 98 09/20/19 16:00 84 09/20/19 12:00 93 09/20/19 12:00 98.1 113 21 150/90 (110) 98 09/20/19 09:30 Non-Rebreather 14.0 09/20/19 09:00 125 24 98 Non-Rebreather 15.0 100 115 24 97 09/20/19 08:00 97.7 109 19 139/81 (100) 97 09/20/19 08:00 126 09/20/19 04:00 98 09/20/19 04:00 98.1 83 17 125/76 (92) 97 09/20/19 00:00 94 09/19/19 23:33 99.1 95 22 120/76 (91) 96 09/19/19 21:00 Simple Mask 14.0 09/19/19 20:22 111 24 95 Venturi Mask 12.0 55 09/19/19 20:00 108 09/19/19 20:00 99.8 100 22 151/83 (105) 94 09/19/19 16:32 125 28 95 Venturi Mask 14.0 55 118 26 89 09/19/19 16:00 97 09/19/19 16:00 98.7 97 18 112/69 (83) 96 09/19/19 12:00 97 09/19/19 12:00 98.7 97 22 138/66 (90) 97 09/19/19 09:00 Venturi Mask 14.0 09/19/19 08:00 97.5 90 20 123/73 (90) 96 09/19/19 08:00 89 Intake and Output 09/20/19 09/21/19 19:00 07:00 Intake Total 500 ml Output Total 750 ml Balance -250 ml Intake Oral 500 ml Output Urine Total 750 ml # Bowel Movements 1 Labs Test 09/18/19 08:05 09/20/19 07:30 09/20/19 10:33 White Blood Count 10.3 K/UL (4.8-10.8) 17.2 K/UL (4.8-10.8) Red Blood Count 3.10 M/UL (4.20-5.40) 3.11 M/UL (4.20-5.40) Hemoglobin 9.5 G/DL (12.0-16.0) 9.5 G/DL (12.0-16.0) Hematocrit 27.5 % (37.0-47.0) 27.4 % (37.0-47.0) Mean Corpuscular Volume 89 FL (80-99) 88 FL (80-99) Mean Corpuscular Hemoglobin 30.7 PG (27.0-31.0) 30.6 PG (27.0-31.0) Mean Corpuscular Hemoglobin Concent 34.6 G/DL (32.0-36.0) 34.7 G/DL (32.0-36.0) Red Cell Distribution Width 10.9 % (11.6-14.8) 11.0 % (11.6-14.8) Platelet Count 262 K/UL (150-450) 324 K/UL (150-450) Mean Platelet Volume 5.3 FL (6.5-10.1) 4.7 FL (6.5-10.1) Neutrophils (%) (Auto) 66.2 % (45.0-75.0) 79.5 % (45.0-75.0) Lymphocytes (%) (Auto) 20.3 % (20.0-45.0) 12.5 % (20.0-45.0) Monocytes (%) (Auto) 11.7 % (1.0-10.0) 7.0 % (1.0-10.0) Eosinophils (%) (Auto) 1.1 % (0.0-3.0) 0.2 % (0.0-3.0) Basophils (%) (Auto) 0.6 % (0.0-2.0) 0.8 % (0.0-2.0) Sodium Level 137 MMOL/L (136-145) 136 MMOL/L (136-145) Potassium Level 3.9 MMOL/L (3.5-5.1) 4.6 MMOL/L (3.5-5.1) Chloride Level 102 MMOL/L (98-107) 100 MMOL/L (98-107) Carbon Dioxide Level 28 MMOL/L (21-32) 25 MMOL/L (21-32) Anion Gap 7 mmol/L (5-15) 11 mmol/L (5-15) Blood Urea Nitrogen 23 mg/dL (7-18) 21 mg/dL (7-18) Creatinine 1.2 MG/DL (0.55-1.30) 1.6 MG/DL (0.55-1.30) Estimat Glomerular Filtration Rate 44.7 mL/min (>60) 32.1 mL/min (>60) Glucose Level 226 MG/DL (74-106) 455 MG/DL (74-106) Uric Acid 7.2 MG/DL (2.6-7.2) Calcium Level 8.2 MG/DL (8.5-10.1) 8.6 MG/DL (8.5-10.1) Phosphorus Level 2.7 MG/DL (2.5-4.9) 4.2 MG/DL (2.5-4.9) Magnesium Level 1.9 MG/DL (1.8-2.4) 2.0 MG/DL (1.8-2.4) Total Bilirubin 0.1 MG/DL (0.2-1.0) 0.3 MG/DL (0.2-1.0) Aspartate Amino Transf (AST/SGOT) 36 U/L (15-37) 28 U/L (15-37) Alanine Aminotransferase (ALT/SGPT) 29 U/L (12-78) 26 U/L (12-78) Alkaline Phosphatase 47 U/L (46-116) 50 U/L (46-116) Troponin I 0.003 ng/mL (0.000-0.056) C-Reactive Protein, Quantitative 3.8 mg/dL (0.00-0.90) 10.1 mg/dL (0.00-0.90) Pro-B-Type Natriuretic Peptide 3009 pg/mL (0-125) 17726 pg/mL (0-125) Total Protein 6.8 G/DL (6.4-8.2) 7.3 G/DL (6.4-8.2) Albumin 2.5 G/DL (3.4-5.0) 2.4 G/DL (3.4-5.0) Globulin 4.3 g/dL 4.9 g/dL Albumin/Globulin Ratio 0.6 (1.0-2.7) 0.5 (1.0-2.7) Arterial Blood pH 7.432 (7.350-7.450) Arterial Blood Partial Pressure CO2 38.3 mmHg (35.0-45.0) Arterial Blood Partial Pressure O2 98.4 mmHg (75.0-100.0) Arterial Blood HCO3 25.0 mmol/L (22.0-26.0) Arterial Blood Oxygen Saturation 96.9 % (95-100) Arterial Blood Base Excess 0.7 (-2-2) Mando Test Positive Height (Feet): 5 Height (Inches): 5.00 Weight (Pounds): 140 Objective Physical Exam Vitals: reviewed General: alert, non-toxic, thin, other - Frail, Chronically Ill Head: normocephalic, atraumatic Heent: bilateral eye normal inspection, bilateral eye PERRl Respiratory: lungs clear, normal breath sounds, Cardiovascular: regular rate, rhythm, no edema Gi: non tender, soft, decreased bowel sounds Gu: no CVA tenderness Msk: no calf tenderness, + Atrophy Neuro: alert, sensory intact, w motor weakness Psychiatric: mood/affect normal Skin: ++ Danie Jackson MD Sep 21, 2019 06:27
[2019-09-21 07:02] LABS: BASOPHILS % (AUTO) 0.8 % (0.0-2.0); EOSINOPHILS % (AUTO) 0.8 % (0.0-3.0); HEMATOCRIT 26.5 % (37.0-47.0); HEMOGLOBIN 9.3 G/DL (12.0-16.0); LYMPHOCYTES % (AUTO) 11.4 % (20.0-45.0); MEAN CORPUSCULAR VOLUME 88 FL (80-99); MONOCYTES % (AUTO) 6.1 % (1.0-10.0); NEUTROPHILS % (AUTO) 80.9 % (45.0-75.0); PLATELET COUNT 318 K/UL (150-450); RED BLOOD COUNT 3.03 M/UL (4.20-5.40); WHITE BLOOD COUNT 14.9 K/UL (4.8-10.8)
--- NOTE | 2019-09-21 07:15 | NUR ---
NURSE NOTES: RECEIVED PATIENT A/A/OX2/3. ABLE TO VERBALIZE NEEDS. NO ACUTE CARDIO-RESP DISTRESS NOTED. DENIES OF PAIN/DISCOMFORT. PATIENT ON VENTURI MASK. 14L/55FIO2. O2 SAT 91-96%. APPEARED TO BE POOR FOOD INTAKE. IV ACCESS PATENT AND INTACT. SALINE LOCK. KEEP HOB ELEVATED FOR ADEQUATE VENTILATION. SCD'S APPLIED AND INPLACED. SIDERAILS ARE PADDED FOR SEIZURES DISORDER. BED IS IN THE LOWEST POSITION. SIDERAILS ARE UP FOR SAFETY. BED LOCK AND BRAKES ENGAGED. WILL CONT TO MONITOR.
[2019-09-21 07:49] LABS: ALANINE AMINOTRANSFERASE 23 U/L (12-78); ALBUMIN 2.5 G/DL (3.4-5.0); ALBUMIN/GLOBULIN RATIO 0.5 (1.0-2.7); ALKALINE PHOSPHATASE 55 U/L (46-116); ANION GAP 12 mmol/L (5-15); ASPARTATE AMINO TRANSFERASE 35 U/L (15-37); BILIRUBIN,TOTAL 0.5 MG/DL (0.2-1.0); BLOOD UREA NITROGEN 27 mg/dL (7-18); CALCIUM 9.1 MG/DL (8.5-10.1); CARBON DIOXIDE 26 MMOL/L (21-32); CHLORIDE 99 MMOL/L (98-107); CREATININE 1.3 MG/DL (0.55-1.30); LACTATE DEHYDROGENASE 308 U/L (81-234); PHOSPHORUS 3.3 MG/DL (2.5-4.9); POTASSIUM 4.3 MMOL/L (3.5-5.1); SODIUM 136 MMOL/L (136-145)
--- NOTE | 2019-09-21 07:50 | NUR ---
HAND-OFF: Report given to NEFTALI Barajas. Plan of care endorsed.
[2019-09-21 07:52] LABS: CREATINE KINASE 67 U/L (26-308)
[2019-09-21 08:00] VITALS: BP 168/86
--- NOTE | 2019-09-21 08:16 | NUR ---
NURSE NOTES: MADE DR SCOTT AWARE OF THE TROPONIN TODAY 0.949. WILL INFORMED DR CHERY WELL. WILL CONT TO MONITOR
--- NOTE | 2019-09-21 08:45 | NUR ---
NURSE NOTES: DR CHERY MADE AWARE OF THE TROP RESULT TODAY. WILL CONT TO MONITOR.
[2019-09-21] MEDS: Docusate 100mg cap ORAL SCH ×3 (08:47→17:14)
[2019-09-21] MEDS: Levodopa/Carbidopa 25/100 tab ORAL SCH ×3 (08:47→17:14)
--- NOTE | 2019-09-21 09:06 | NUR ---
NURSE NOTES: DR SCOTT MADE AWARE OF THE B/P 168/86. NEW ORDER OBTAINED. WILL CONT TO MONITOR. Addendum: 09/21/19 at 1024 by AMPARO GAMBOA LVN KURT CASSIDY GIVEN. WILL RECHECK B/P. WILL CONT TO MONITOR.
[2019-09-21] MEDS: dilTIAZem HCl 30mg tab ORAL SCH ×2 (09:23→17:13)
--- NOTE | 2019-09-21 09:45 | Cardiac Electrophysiology PN ---
Assessment/Plan Status Narrative 1. Patchy densities and ground-glass opacities throughout right greater than left, concerning for an infectious/inflammatory process and/or pulmonary edema. 2. Small bilateral pleural effusions. 3. No pulmonary embolus identified. 4. Mild prominence of the pulmonary artery is suggestive of pulmonary arterial hypertension. Assessment/Plan 1. Hypertension on Lasix 40 iv bid. Add Cardizem 30 bid and prn Clonidine 2. Troponin leak. First 2 troponins were negative. 3rd troponin now mildly elevated that could be due to renal failure/ demand ischemia. Will get stat ECG and repeat troponin. Echo EF 65% 3. Fever and UTI on iv Abx. Ruled out for COVID. 4. Diabetes. 5. Contracted gallbladder, packed with stones by Abd US. FU GI 6. Respiratory failure, COPD and pulmonary HTN. Chest CT showed no PE. On Lasix 4o iv bid 7. Hyperlipidemia, on Lipitor. PATRICK RN and Dr Alonzo Subjective Subjective On iv Abx. On 14 liter Venturi MAsk and 55% Fio2 . Covid is negative. Chest CT no PE. BNP > [address]677. On iv Lasix BP is high Objective Last 24 Hour Vital Signs Date Time Temp Pulse Resp B/P (MAP) Pulse Ox O2 Delivery O2 Flow Rate FiO2 09/21/19 09:23 109 168/86 09/21/19 08:00 99.7 109 21 168/86 (113) 93 09/21/19 04:00 98.5 103 18 152/77 (102) 93 09/21/19 04:00 111 09/21/19 00:00 98.8 88 19 109/60 (76) 98 09/21/19 00:00 85 09/20/19 21:00 Non-Rebreather 14.0 09/20/19 20:00 86 09/20/19 20:00 98.9 87 20 119/89 (99) 97 09/20/19 16:00 96.7 102 18 106/80 (89) 98 09/20/19 16:00 84 09/20/19 12:00 93 09/20/19 12:00 98.1 113 21 150/90 (110) 98 Intake and Output 09/20/19 09/21/19 19:00 07:00 Intake Total 500 ml Output Total 750 ml Balance -250 ml Intake Oral 500 ml Output Urine Total 750 ml # Bowel Movements 1 Laboratory Tests Test 09/20/19 10:33 09/21/19 06:05 Arterial Blood pH 7.432 (7.350-7.450) Arterial Blood Partial Pressure CO2 38.3 mmHg (35.0-45.0) Arterial Blood Partial Pressure O2 98.4 mmHg (75.0-100.0) Arterial Blood HCO3 25.0 mmol/L (22.0-26.0) Arterial Blood Oxygen Saturation 96.9 % (95-100) Arterial Blood Base Excess 0.7 (-2-2) Mando Test Positive White Blood Count 14.9 K/UL (4.8-10.8) H Red Blood Count 3.03 M/UL (4.20-5.40) L Hemoglobin 9.3 G/DL (12.0-16.0) L Hematocrit 26.5 % (37.0-47.0) L Mean Corpuscular Volume 88 FL (80-99) Mean Corpuscular Hemoglobin 30.7 PG (27.0-31.0) Mean Corpuscular Hemoglobin Concent 35.1 G/DL (32.0-36.0) Red Cell Distribution Width 11.0 % (11.6-14.8) L Platelet Count 318 K/UL (150-450) Mean Platelet Volume 5.0 FL (6.5-10.1) L Neutrophils (%) (Auto) 80.9 % (45.0-75.0) H Lymphocytes (%) (Auto) 11.4 % (20.0-45.0) L Monocytes (%) (Auto) 6.1 % (1.0-10.0) Eosinophils (%) (Auto) 0.8 % (0.0-3.0) Basophils (%) (Auto) 0.8 % (0.0-2.0) D-Dimer 3.36 mg/L FEU (0.00-0.49) H Sodium Level 136 MMOL/L (136-145) Potassium Level 4.3 MMOL/L (3.5-5.1) Chloride Level 99 MMOL/L (98-107) Carbon Dioxide Level 26 MMOL/L (21-32) Anion Gap 12 mmol/L (5-15) Blood Urea Nitrogen 27 mg/dL (7-18) H Creatinine 1.3 MG/DL (0.55-1.30) Estimat Glomerular Filtration Rate 40.7 mL/min (>60) Glucose Level 370 MG/DL (74-106) H Uric Acid 7.1 MG/DL (2.6-7.2) Calcium Level 9.1 MG/DL (8.5-10.1) Phosphorus Level 3.3 MG/DL (2.5-4.9) Magnesium Level 2.1 MG/DL (1.8-2.4) Total Bilirubin 0.5 MG/DL (0.2-1.0) Aspartate Amino Transf (AST/SGOT) 35 U/L (15-37) Alanine Aminotransferase (ALT/SGPT) 23 U/L (12-78) Alkaline Phosphatase 55 U/L (46-116) Lactate Dehydrogenase 308 U/L (81-234) H Total Creatine Kinase 67 U/L (26-308) Troponin I 0.949 ng/mL (0.000-0.056) C-Reactive Protein, Quantitative 9.4 mg/dL (0.00-0.90) H Pro-B-Type Natriuretic Peptide 97183 pg/mL (0-125) H Total Protein 7.5 G/DL (6.4-8.2) Albumin 2.5 G/DL (3.4-5.0) L Globulin 5.0 g/dL Albumin/Globulin Ratio 0.5 (1.0-2.7) L Objective HEAD AND NECK: No JVD. LUNGS: Clear. CARDIOVASCULAR: Shows regular S1 and S2 with no gallop. ABDOMEN: Soft. EXTREMITIES: No pitting edema. Noe Galdamez MD Sep 21, 2019 09:45
--- NOTE | 2019-09-21 09:48 | Diagnostic Imaging Report ---
Indication: Shortness of breath Technique: One view of the chest Comparison: 09/16/2019 Findings: Interim development of bilateral reticular interstitial and airspace infiltrates. Heart size is normal. There is now a small left pleural effusion Impression: Bilateral infiltrates, concerning for pneumonia. Small left pleural effusion
--- NOTE | 2019-09-21 09:59 | Nephrology Progress Note ---
Assessment/Plan Problem List: (1) MER (acute kidney injury) (2) Dehydration (3) Type 2 diabetes mellitus (4) Anemia (5) UTI (urinary tract infection) Assessment Acute renal failure, most likely dehydration Will watch for underlying chronic kidney disease. Anemia, etiology to be identified Toxic metabolic encephalopathy on presentation Diabetes mellitus [id number] with hemoglobin A1c of 8.9 History of COPD History of pulmonary hypertension History of UTI, evidence of UTI on this admission Patient currently full code however on previous admission was DNR Plan September 20: Discussed with Dr. Galdamez: Serum creatinine down to 1.3. Troponin I went up. Cardizem started for blood pressure. Patient remains on nonrebreather mask. Continue current management. Previously: Serum creatinine gonsalo to 1.6. This morning's blood sugar 455. White blood cells gonsalo to over 17,000. Continue to treat underlying infection. Continue per ID and pulmonary. Avoid nephrotoxic's. Continue to monitor renal parameters. Stop IV hydration. 1 dose of Lasix IV and 1 dose of potassium chloride p.o. ordered. Defer management of the underlying pulmonary condition to stapler coil unit. Per orders. Monitor renal parameters Monitor electrolytes Keep the blood pressure and blood sugar in check Urine studies Antibiotics as needed Per consultants Subjective ROS Limited/Unobtainable: No Constitutional: Reports: malaise, weakness Objective Objective Last 24 Hour Vital Signs Date Time Temp Pulse Resp B/P (MAP) Pulse Ox O2 Delivery O2 Flow Rate FiO2 09/21/19 09:23 109 168/86 09/21/19 08:00 99.7 109 21 168/86 (113) 93 09/21/19 04:00 98.5 103 18 152/77 (102) 93 09/21/19 04:00 111 09/21/19 00:00 98.8 88 19 109/60 (76) 98 09/21/19 00:00 85 09/20/19 21:00 Non-Rebreather 14.0 09/20/19 20:00 86 09/20/19 20:00 98.9 87 20 119/89 (99) 97 09/20/19 16:00 96.7 102 18 106/80 (89) 98 09/20/19 16:00 84 09/20/19 12:00 93 09/20/19 12:00 98.1 113 21 150/90 (110) 98 Intake and Output 09/20/19 09/21/19 19:00 07:00 Intake Total 500 ml Output Total 750 ml Balance -250 ml Intake Oral 500 ml Output Urine Total 750 ml # Bowel Movements 1 Laboratory Tests 09/20/19 10:33: Arterial Blood pH 7.432, Arterial Blood Partial Pressure CO2 38.3, Arterial Blood Partial Pressure O2 98.4, Arterial Blood HCO3 25.0, Arterial Blood Oxygen Saturation 96.9, Arterial Blood Base Excess 0.7, Mando Test Positive 09/21/19 06:05: White Blood Count 14.9H, Red Blood Count 3.03L, Hemoglobin 9.3L, Hematocrit 26.5L, Mean Corpuscular Volume 88, Mean Corpuscular Hemoglobin 30.7, Mean Corpuscular Hemoglobin Concent 35.1, Red Cell Distribution Width 11.0L, Platelet Count 318, Mean Platelet Volume 5.0L, Neutrophils (%) (Auto) 80.9H, Lymphocytes (%) (Auto) 11.4L, Monocytes (%) (Auto) 6.1, Eosinophils (%) (Auto) 0.8, Basophils (%) (Auto) 0.8, D-Dimer 3.36H, Sodium Level 136, Potassium Level 4.3, Chloride Level 99, Carbon Dioxide Level 26, Anion Gap 12, Blood Urea Nitrogen 27H, Creatinine 1.3, Estimat Glomerular Filtration Rate 40.7, Glucose Level 370H, Uric Acid 7.1, Calcium Level 9.1, Phosphorus Level 3.3, Magnesium Level 2.1, Total Bilirubin 0.5, Aspartate Amino Transf (AST/SGOT) 35, Alanine Aminotransferase (ALT/SGPT) 23, Alkaline Phosphatase 55, Lactate Dehydrogenase 308H, Total Creatine Kinase 67, Troponin I 0.949H, C-Reactive Protein, Quantitative 9.4H, Pro-B-Type Natriuretic Peptide 17995Z, Total Protein 7.5, Albumin 2.5L, Globulin 5.0, Albumin/Globulin Ratio 0.5L Height (Feet): 5 Height (Inches): 5.00 Weight (Pounds): 140 General Appearance: mild distress Cardiovascular: tachycardia, arrhythmia Respiratory/Chest: decreased breath sounds Abdomen: distended José Miguel Calvert MD Sep 21, 2019 09:59
--- NOTE | 2019-09-21 10:29 | NUR ---
RADIOLOGY DEPT., CHEST X-RAY DONE.-P.DYE
--- NOTE | 2019-09-21 10:32 | Pulmonology Progress Note ---
Subjective ROS Limited/Unobtainable: No Interval Events: Remains on NRBM Constitutional: Reports: no symptoms, other HEENT: Repors: no symptoms Respiratory: Reports: shortness of breath Cardiovascular: Reports: no symptoms Gastrointestinal/Abdominal: Reports: no symptoms Allergies: Coded Allergies: No Known Allergies (Unverified , 11/08/15) Objective Last 24 Hour Vital Signs Date Time Temp Pulse Resp B/P (MAP) Pulse Ox O2 Delivery O2 Flow Rate FiO2 09/21/19 09:30 Venturi Mask 09/21/19 09:23 109 168/86 09/21/19 08:00 113 09/21/19 08:00 99.7 109 21 168/86 (113) 93 09/21/19 04:00 98.5 103 18 152/77 (102) 93 09/21/19 04:00 111 09/21/19 00:00 98.8 88 19 109/60 (76) 98 09/21/19 00:00 85 09/20/19 21:00 Non-Rebreather 14.0 09/20/19 20:00 86 09/20/19 20:00 98.9 87 20 119/89 (99) 97 09/20/19 16:00 96.7 102 18 106/80 (89) 98 09/20/19 16:00 84 09/20/19 12:00 93 09/20/19 12:00 98.1 113 21 150/90 (110) 98 Intake and Output 09/20/19 09/21/19 19:00 07:00 Intake Total 500 ml Output Total 750 ml Balance -250 ml Intake Oral 500 ml Output Urine Total 750 ml # Bowel Movements 1 General Appearance: no acute distress HEENT: normocephalic Respiratory: chest wall non-tender, decreased breath sounds Cardiovascular: normal peripheral pulses, normal rate Abdomen: normal bowel sounds, soft, non tender Extremities: no cyanosis Laboratory Tests 09/20/19 10:33: Arterial Blood pH 7.432, Arterial Blood Partial Pressure CO2 38.3, Arterial Blood Partial Pressure O2 98.4, Arterial Blood HCO3 25.0, Arterial Blood Oxygen Saturation 96.9, Arterial Blood Base Excess 0.7, Mando Test Positive 09/21/19 06:05: White Blood Count 14.9H, Red Blood Count 3.03L, Hemoglobin 9.3L, Hematocrit 26.5L, Mean Corpuscular Volume 88, Mean Corpuscular Hemoglobin 30.7, Mean Corpuscular Hemoglobin Concent 35.1, Red Cell Distribution Width 11.0L, Platelet Count 318, Mean Platelet Volume 5.0L, Neutrophils (%) (Auto) 80.9H, Lymphocytes (%) (Auto) 11.4L, Monocytes (%) (Auto) 6.1, Eosinophils (%) (Auto) 0.8, Basophils (%) (Auto) 0.8, D-Dimer 3.36H, Sodium Level 136, Potassium Level 4.3, Chloride Level 99, Carbon Dioxide Level 26, Anion Gap 12, Blood Urea Nitrogen 27H, Creatinine 1.3, Estimat Glomerular Filtration Rate 40.7, Glucose Level 370H, Uric Acid 7.1, Calcium Level 9.1, Phosphorus Level 3.3, Magnesium Level 2.1, Total Bilirubin 0.5, Aspartate Amino Transf (AST/SGOT) 35, Alanine Aminotransferase (ALT/SGPT) 23, Alkaline Phosphatase 55, Lactate Dehydrogenase 308H, Total Creatine Kinase 67, Troponin I 0.949H, C-Reactive Protein, Quantitative 9.4H, Pro-B-Type Natriuretic Peptide 31898G, Total Protein 7.5, Albumin 2.5L, Globulin 5.0, Albumin/Globulin Ratio 0.5L Current Medications Medications (Trade) Dose Ordered Sig/Tenzin Route PRN Reason Start Time Stop Time Status Last Admin Dose Admin Acetaminophen (Tylenol) 650 mg Q4H PRN ORAL Temp >100.5 09/16/19 23:00 10/16/19 22:59 Albuterol/ Ipratropium (Albuterol/ Ipratropium) 3 ml Q4H PRN HHN Shortness of Breath 09/19/19 16:30 09/24/19 16:29 09/20/19 09:24 Atorvastatin Calcium (Lipitor) 10 mg BEDTIME ORAL 09/17/19 21:00 12/16/19 20:59 09/20/19 21:49 Carbidopa/Levodopa (Sinemet 25/100) 1 tab THREE TIMES A DAY ORAL 09/17/19 09:00 10/17/19 08:59 09/21/19 08:47 Ceftriaxone Sodium 1 gm/ Dextrose 55 ml @ 110 mls/hr Q24H IVPB 09/17/19 21:00 09/24/19 20:59 09/20/19 21:51 Clonidine HCl (Catapres Tab) 0.1 mg Q2H PRN ORAL For High Blood Pressure 09/21/19 09:15 12/20/19 09:14 Dextrose (Dextrose 50%) 25 ml Q30M PRN IV Hypoglycemia 09/16/19 23:00 12/15/19 22:59 Dextrose (Dextrose 50%) 50 ml Q30M PRN IV Hypoglycemia 09/16/19 23:00 12/15/19 22:59 Diltiazem HCl (Cardizem) 30 mg BID ORAL 09/21/19 09:15 10/21/19 09:14 09/21/19 09:23 Docusate Sodium (Colace) 100 mg THREE TIMES A DAY ORAL 09/17/19 09:00 10/17/19 08:59 09/21/19 08:47 Escitalopram Oxalate (Lexapro) 10 mg DAILY ORAL 09/17/19 09:00 10/17/19 08:59 09/21/19 08:47 Furosemide (Lasix) 40 mg EVERY 12 HOURS IV 09/20/19 21:00 10/20/19 20:59 09/21/19 08:58 Insulin Aspart (NovoLOG) BEFORE MEALS AND HS SUBQ 09/17/19 06:30 12/16/19 06:29 09/21/19 06:22 Lorazepam (Ativan) 1 mg Q6H PRN ORAL For Anxiety 09/19/19 01:00 09/26/19 00:59 Mirtazapine (Remeron) 7.5 mg BEDTIME PRN ORAL INSOMNIA 09/19/19 01:00 12/18/19 00:59 Nateglinide (Starlix) 120 mg THREE TIMES A DAY ORAL 09/20/19 13:00 10/17/19 08:59 09/21/19 08:47 Pantoprazole (Protonix) 40 mg EVERY 12 HOURS ORAL 09/17/19 09:00 10/17/19 08:59 09/21/19 08:47 Assessment/Plan Assessment/Plan IMPRESSION: 1. Hypoxemia. Suspect pneumonia vs pulm edema 2. Diabetes mellitus. 3. Decubitus ulcer, sacrum. 4. UTI. 5. Hypertension. 6. Hyperlipidemia. DISCUSSION: I have reviewed echocardiogram, which shows moderate mitral regurgitation, left ventricular diastolic dysfunction and evidence of mild pulmonary hypertension based on elevated tricuspid systolic velocity. The etiology of her hypoxemia is unclear, however based on CT chest I suspect either pneumonia or fluid; suspect fluid Will continue to diurese COVID 19 pcr x1 is negative Continue O2 Abx Negative venous duplex lower extremities Valery Lee Omar Syed MD Sep 21, 2019 10:32
--- NOTE | 2019-09-21 10:33 | NUR ---
RD ASSESSMENT & RECOMMENDATIONS SEE CARE ACTIVITY FOR COMPLETE ASSESSMENT DAILY ESTIMATED NEEDS: Needs based on Cardiac, DM, wound, 63.5kg 25-30 kcals/kg 2711-7427 total kcals 1.25-1.5 g protein/kg 79-95 g total protein 25-30 mL/kg 2048-5522 total fluid mLs NUTRITION DIAGNOSIS: * Swallowing difficulty R/T dysphagia, h/o Parkinson's disease as evidenced by seen by [employer] w/ rec for pureed moist, NTL w/ poor intake at this time. * Altered nutrition related lab values R/T diabetes as evidenced by A1C of 8.9, elev BGs ([phone]) and POC glu ([phone]) CURRENT DIET:[facility] MED, pureed moist + NTL + Glucerna TID PO DIET RECOMMENDATIONS: CCHO Med/ texture per [employer] ADDITIONAL RECOMMENDATIONS: * Calibrated bedscale wt for accurate CBW * Monitor lytes closely w/ Lasix, replete as needed * W/ PO intake consistently >50%, rec CCHO LOW, LOW NA diet * Maintain Glucerna TID w/ meals * Consider long acting insulin for improved BG control: BGs 200s-400's * MVI x 1 as supplement and to improve skin integrity * Consider appetite stimulant
--- NOTE | 2019-09-21 11:01 | Infectious Diseases Prog Note ---
Assessment/Plan Assessment/Plan IMPRESSION: Sepsis with leukocytosis and fever. Pneumonia E. coli UTI. Diabetes mellitus with hyperglycemia, COPD, Hypertension, pulmonary hypertension, Diastolic CHF, Parkinson disease, anemia, major depression. RECOMMENDATION: We will continue ceftriaxone. F/U CBC Subjective ROS Limited/Unobtainable: Yes Constitutional: Reports: no symptoms Respiratory: Reports: no symptoms Gastrointestinal/Abdominal: Reports: no symptoms Genitourinary: Reports: no symptoms Allergies: Coded Allergies: No Known Allergies (Unverified , 11/08/15) Objective Vital Signs Last 24 Hour Vital Signs Date Time Temp Pulse Resp B/P (MAP) Pulse Ox O2 Delivery O2 Flow Rate FiO2 09/21/19 09:30 Venturi Mask 09/21/19 09:23 109 168/86 09/21/19 08:00 113 09/21/19 08:00 99.7 109 21 168/86 (113) 93 09/21/19 04:00 98.5 103 18 152/77 (102) 93 09/21/19 04:00 111 09/21/19 00:00 98.8 88 19 109/60 (76) 98 09/21/19 00:00 85 09/20/19 21:00 Non-Rebreather 14.0 09/20/19 20:00 86 09/20/19 20:00 98.9 87 20 119/89 (99) 97 09/20/19 16:00 96.7 102 18 106/80 (89) 98 09/20/19 16:00 84 09/20/19 12:00 93 09/20/19 12:00 98.1 113 21 150/90 (110) 98 Height (Feet): 5 Height (Inches): 5.00 Weight (Pounds): 140 General Appearance: no acute distress HEENT: mucous membranes moist Respiratory/Chest: lungs clear, other - oxygen by mask Cardiovascular: tachycardia Abdomen: soft, non tender Extremities: no edema Neurologic/Psychiatric: alert, responsive Laboratory Tests Test 09/21/19 06:05 White Blood Count 14.9 K/UL (4.8-10.8) H Red Blood Count 3.03 M/UL (4.20-5.40) L Hemoglobin 9.3 G/DL (12.0-16.0) L Hematocrit 26.5 % (37.0-47.0) L Mean Corpuscular Volume 88 FL (80-99) Mean Corpuscular Hemoglobin 30.7 PG (27.0-31.0) Mean Corpuscular Hemoglobin Concent 35.1 G/DL (32.0-36.0) Red Cell Distribution Width 11.0 % (11.6-14.8) L Platelet Count 318 K/UL (150-450) Mean Platelet Volume 5.0 FL (6.5-10.1) L Neutrophils (%) (Auto) 80.9 % (45.0-75.0) H Lymphocytes (%) (Auto) 11.4 % (20.0-45.0) L Monocytes (%) (Auto) 6.1 % (1.0-10.0) Eosinophils (%) (Auto) 0.8 % (0.0-3.0) Basophils (%) (Auto) 0.8 % (0.0-2.0) D-Dimer 3.36 mg/L FEU (0.00-0.49) H Sodium Level 136 MMOL/L (136-145) Potassium Level 4.3 MMOL/L (3.5-5.1) Chloride Level 99 MMOL/L (98-107) Carbon Dioxide Level 26 MMOL/L (21-32) Anion Gap 12 mmol/L (5-15) Blood Urea Nitrogen 27 mg/dL (7-18) H Creatinine 1.3 MG/DL (0.55-1.30) Estimat Glomerular Filtration Rate 40.7 mL/min (>60) Glucose Level 370 MG/DL (74-106) H Uric Acid 7.1 MG/DL (2.6-7.2) Calcium Level 9.1 MG/DL (8.5-10.1) Phosphorus Level 3.3 MG/DL (2.5-4.9) Magnesium Level 2.1 MG/DL (1.8-2.4) Total Bilirubin 0.5 MG/DL (0.2-1.0) Aspartate Amino Transf (AST/SGOT) 35 U/L (15-37) Alanine Aminotransferase (ALT/SGPT) 23 U/L (12-78) Alkaline Phosphatase 55 U/L (46-116) Lactate Dehydrogenase 308 U/L (81-234) H Total Creatine Kinase 67 U/L (26-308) Troponin I 0.949 ng/mL (0.000-0.056) C-Reactive Protein, Quantitative 9.4 mg/dL (0.00-0.90) H Pro-B-Type Natriuretic Peptide 64322 pg/mL (0-125) H Total Protein 7.5 G/DL (6.4-8.2) Albumin 2.5 G/DL (3.4-5.0) L Globulin 5.0 g/dL Albumin/Globulin Ratio 0.5 (1.0-2.7) L Current Medications Medications (Trade) Dose Ordered Sig/Tenzin Route PRN Reason Start Time Stop Time Status Last Admin Dose Admin Acetaminophen (Tylenol) 650 mg Q4H PRN ORAL Temp >100.5 09/16/19 23:00 10/16/19 22:59 Albuterol/ Ipratropium (Albuterol/ Ipratropium) 3 ml Q4H PRN HHN Shortness of Breath 09/19/19 16:30 09/24/19 16:29 09/20/19 09:24 Atorvastatin Calcium (Lipitor) 10 mg BEDTIME ORAL 09/17/19 21:00 12/16/19 20:59 09/20/19 21:49 Carbidopa/Levodopa (Sinemet 25/100) 1 tab THREE TIMES A DAY ORAL 09/17/19 09:00 10/17/19 08:59 09/21/19 08:47 Ceftriaxone Sodium 1 gm/ Dextrose 55 ml @ 110 mls/hr Q24H IVPB 09/17/19 21:00 09/24/19 20:59 09/20/19 21:51 Clonidine HCl (Catapres Tab) 0.1 mg Q2H PRN ORAL For High Blood Pressure 09/21/19 09:15 12/20/19 09:14 Dextrose (Dextrose 50%) 25 ml Q30M PRN IV Hypoglycemia 09/16/19 23:00 12/15/19 22:59 Dextrose (Dextrose 50%) 50 ml Q30M PRN IV Hypoglycemia 09/16/19 23:00 12/15/19 22:59 Diltiazem HCl (Cardizem) 30 mg BID ORAL 09/21/19 09:15 10/21/19 09:14 09/21/19 09:23 Docusate Sodium (Colace) 100 mg THREE TIMES A DAY ORAL 09/17/19 09:00 10/17/19 08:59 09/21/19 08:47 Escitalopram Oxalate (Lexapro) 10 mg DAILY ORAL 09/17/19 09:00 10/17/19 08:59 09/21/19 08:47 Furosemide (Lasix) 40 mg EVERY 12 HOURS IV 09/20/19 21:00 10/20/19 20:59 09/21/19 08:58 Insulin Aspart (NovoLOG) BEFORE MEALS AND HS SUBQ 09/17/19 06:30 12/16/19 06:29 09/21/19 06:22 Lorazepam (Ativan) 1 mg Q6H PRN ORAL For Anxiety 09/19/19 01:00 09/26/19 00:59 Mirtazapine (Remeron) 7.5 mg BEDTIME PRN ORAL INSOMNIA 09/19/19 01:00 12/18/19 00:59 Nateglinide (Starlix) 120 mg THREE TIMES A DAY ORAL 09/20/19 13:00 10/17/19 08:59 09/21/19 08:47 Pantoprazole (Protonix) 40 mg EVERY 12 HOURS ORAL 09/17/19 09:00 10/17/19 08:59 09/21/19 08:47 Rogelio Martinez MD Sep 21, 2019 11:01
[2019-09-21 12:00] VITALS: BP 128/64
[2019-09-21 16:00] VITALS: BP 157/94
--- NOTE | 2019-09-21 19:26 | NUR ---
HAND-OFF: Report given to NEFTALI KISER.
--- NOTE | 2019-09-21 19:30 | NUR ---
NURSE NOTES: Receive a report from BASSAM Barajas. Round is done. Pt is asleep but easily aroused. No acute distress noted. Verbally responsive in Kh[place]. No SOB noted. No wheezing noted. No SOB noted. On 14L Ventri mask, Spo2 97% maintains. Bed bound. Noted right hand resting tremor. On SCDs bilateral. Denies any pain. On periwick for incontinence. Call light within reach. Will continue to monitor.
[2019-09-21 20:00] VITALS: BP 122/93
[2019-09-21] MEDS: cefTRIAXone 1 GM in D5W 55 ML IVPB SCH (20:48)
--- NOTE | 2019-09-21 21:15 | General Progress Note ---
Assessment/Plan Problem List: (1) Severe sepsis ICD Codes: A41.9 - Sepsis, unspecified organism; R65.20 - Severe sepsis without septic shock SNOMED: 47982164 (2) Constipation ICD Codes: K59.00 - Constipation, unspecified SNOMED: 69479842 (3) Cholelithiasis ICD Codes: K80.20 - Calculus of gallbladder without cholecystitis without obstruction SNOMED: 124003325 (4) Pulmonary hypertension ICD Codes: I27.20 - Pulmonary hypertension, unspecified SNOMED: 06386543 (5) Dehydration ICD Codes: E86.0 - Dehydration SNOMED: 24139676 (6) UTI (urinary tract infection) ICD Codes: N39.0 - Urinary tract infection, site not specified SNOMED: 01613842 (7) Encephalopathy ICD Codes: G93.40 - Encephalopathy, unspecified SNOMED: 75134458, 739096341 (8) Anemia ICD Codes: D64.9 - Anemia, unspecified SNOMED: 884081076 (9) Hyperlipidemia associated with type 2 diabetes mellitus ICD Codes: E11.69 - Type 2 diabetes mellitus with other specified complication ; E78.5 - Hyperlipidemia, unspecified SNOMED: 563105058, 697626157603 (10) Type 2 diabetes mellitus ICD Codes: E11.9 - Type 2 diabetes mellitus without complications SNOMED: 83728176, 246269374 Status: progressing Assessment/Plan: no sob no wheezing still on relatively high oxygen check sugar no pe on imaging s/p svt dm gallstones consulted dr [place] copd Subjective ROS Limited/Unobtainable: Yes Allergies: Coded Allergies: No Known Allergies (Unverified , 11/08/15) Objective Last 24 Hour Vital Signs Date Time Temp Pulse Resp B/P (MAP) Pulse Ox O2 Delivery O2 Flow Rate FiO2 09/21/19 17:13 102 157/94 09/21/19 16:00 87 09/21/19 16:00 97.5 102 18 157/94 (115) 99 09/21/19 12:00 99.1 66 18 128/64 (85) 96 09/21/19 12:00 99 09/21/19 09:30 Venturi Mask 09/21/19 09:23 109 168/86 09/21/19 08:00 113 09/21/19 08:00 99.7 109 21 168/86 (113) 93 09/21/19 04:00 98.5 103 18 152/77 (102) 93 09/21/19 04:00 111 09/21/19 00:00 98.8 88 19 109/60 (76) 98 09/21/19 00:00 85 Intake and Output 09/20/19 09/21/19 19:00 07:00 Intake Total 500 ml Output Total 750 ml Balance -250 ml Intake Oral 500 ml Output Urine Total 750 ml # Bowel Movements 1 Laboratory Tests 09/21/19 06:05: White Blood Count 14.9H, Red Blood Count 3.03L, Hemoglobin 9.3L, Hematocrit 26.5L, Mean Corpuscular Volume 88, Mean Corpuscular Hemoglobin 30.7, Mean Corpuscular Hemoglobin Concent 35.1, Red Cell Distribution Width 11.0L, Platelet Count 318, Mean Platelet Volume 5.0L, Neutrophils (%) (Auto) 80.9H, Lymphocytes (%) (Auto) 11.4L, Monocytes (%) (Auto) 6.1, Eosinophils (%) (Auto) 0.8, Basophils (%) (Auto) 0.8, D-Dimer 3.36H, Sodium Level 136, Potassium Level 4.3, Chloride Level 99, Carbon Dioxide Level 26, Anion Gap 12, Blood Urea Nitrogen 27H, Creatinine 1.3, Estimat Glomerular Filtration Rate 40.7, Glucose Level 370H, Uric Acid 7.1, Calcium Level 9.1, Phosphorus Level 3.3, Magnesium Level 2.1, Total Bilirubin 0.5, Aspartate Amino Transf (AST/SGOT) 35, Alanine Aminotransferase (ALT/SGPT) 23, Alkaline Phosphatase 55, Lactate Dehydrogenase 308H, Total Creatine Kinase 67, Troponin I 0.949H, C-Reactive Protein, Quantitative 9.4H, Pro-B-Type Natriuretic Peptide 95828S, Total Protein 7.5, Albumin 2.5L, Globulin 5.0, Albumin/Globulin Ratio 0.5L Height (Feet): 5 Height (Inches): 5.00 Weight (Pounds): 140 Amelie Rios MD Sep 21, 2019 21:15
--- NOTE | 2019-09-21 23:10 | Psych Consult Progress Note ---
Psychiatry Progress Note Psychiatry Progress Note Subjective the pt is more alert and less confused c/o chest discomfort and anxiety Medications Current Medications Medications (Trade) Dose Ordered Sig/Tenzin Route PRN Reason Start Time Stop Time Status Last Admin Dose Admin Acetaminophen (Tylenol) 650 mg Q4H PRN ORAL Temp >100.5 09/16/19 23:00 10/16/19 22:59 Albuterol/ Ipratropium (Albuterol/ Ipratropium) 3 ml Q4H PRN HHN Shortness of Breath 09/19/19 16:30 09/24/19 16:29 09/20/19 09:24 Atorvastatin Calcium (Lipitor) 10 mg BEDTIME ORAL 09/17/19 21:00 12/16/19 20:59 09/21/19 20:49 Carbidopa/Levodopa (Sinemet 25/100) 1 tab THREE TIMES A DAY ORAL 09/17/19 09:00 10/17/19 08:59 09/21/19 17:14 Ceftriaxone Sodium 1 gm/ Dextrose 55 ml @ 110 mls/hr Q24H IVPB 09/17/19 21:00 09/24/19 20:59 09/21/19 20:48 Clonidine HCl (Catapres Tab) 0.1 mg Q2H PRN ORAL For High Blood Pressure 09/21/19 09:15 12/20/19 09:14 Dextrose (Dextrose 50%) 25 ml Q30M PRN IV Hypoglycemia 09/16/19 23:00 12/15/19 22:59 Dextrose (Dextrose 50%) 50 ml Q30M PRN IV Hypoglycemia 09/16/19 23:00 12/15/19 22:59 Diltiazem HCl (Cardizem) 30 mg BID ORAL 09/21/19 09:15 10/21/19 09:14 09/21/19 17:13 Docusate Sodium (Colace) 100 mg THREE TIMES A DAY ORAL 09/17/19 09:00 10/17/19 08:59 09/21/19 17:14 Escitalopram Oxalate (Lexapro) 10 mg DAILY ORAL 09/17/19 09:00 10/17/19 08:59 09/21/19 08:47 Furosemide (Lasix) 40 mg EVERY 12 HOURS IV 09/20/19 21:00 10/20/19 20:59 09/21/19 20:50 Insulin Aspart (NovoLOG) BEFORE MEALS AND HS SUBQ 09/17/19 06:30 12/16/19 06:29 09/21/19 20:56 Lorazepam (Ativan) 1 mg Q6H PRN ORAL For Anxiety 09/19/19 01:00 09/26/19 00:59 Mirtazapine (Remeron) 7.5 mg BEDTIME PRN ORAL INSOMNIA 09/19/19 01:00 12/18/19 00:59 Nateglinide (Starlix) 120 mg THREE TIMES A DAY ORAL 09/20/19 13:00 10/17/19 08:59 09/21/19 17:13 Pantoprazole (Protonix) 40 mg EVERY 12 HOURS ORAL 09/17/19 09:00 10/17/19 08:59 09/21/19 20:48 Allergies: Coded Allergies: No Known Allergies (Unverified , 11/08/15) Objective Data Height (Feet): 5 Height (Inches): 5.00 Weight (Pounds): 140 General Appearance: WD/WN, no apparent distress, alert, alert oriented x3 Appearance: no abnormalities noted Behavior Mannerisms: good eye contact Mental Status Exam - Affect: blunted Mental Status Exam - Mood: anxious Speech: clear Mental Status Exam - Thought P: no abnormalities Mental Status Exam - Suicidal: not present Assessment/Plan Status: progressing Assessment/Plan: alert and oriented times self. Mood is anxious. Affect is flat. Thought process, there is a paucity of thought content. Thought content, no suicidal or homicidal ideation. Cognition is impaired. Insight and judgment are impaired. ASSESSMENT: [place] Acute encephalopathy. Major depressive disorder. Anxiety disorder. PLAN: 1. Lexapro 10 mg in the morning 2. remeron 7.5 mg po qhs Stephanie Ybarra MD Sep 21, 2019 23:10
[2019-09-22] VITALS: BP 114/83
--- NOTE | 2019-09-22 | NUR ---
NURSE NOTES: Skin intact. Remaining opticform on sacral. On position change. Will continue to monitor.
[2019-09-22 04:00] VITALS: BP 119/78
[2019-09-22] MEDS: NovoLOG Insulin Flexpen SUBQ SCH ×4 (06:15→21:00)
--- NOTE | 2019-09-22 07:12 | Hematology/Onc Progress Note ---
Assessment/Plan Assessment/Plan Assessment and Recs: # Anemia of iron deficiency -- hgb remains low, anemia panel reviewed, ferritin in prior was 20 --> consider iron as needed, if low will order ferritin --> cea is 4.9 --> no hemolysis is seen --> r/o gi bleed, gi is on board --> hgb 9.5 # Leukocytosis with Sepsis likely due to uti --> has now improved --> abx: ceftriaxone --> as per Dr. Martinez --> urine cx positive --> wbc 12-->17 --> 09/20 cxr bilat infiltrates # Respiratory failure, r/o chf v copd --> diuresis started prn # Ryan on admission --> per renal on ivf --> per Dr. Clavert # Elevated lactic acid level --> sp abx lecquin # Type 2 diabetes mellitus --> acucchecks qac and qhs --> iss, consider endo # Stage I decubitus ulcer sacrum # Dvt ppx scds Appreciate consultation and dw Rn Subjective Allergies: Coded Allergies: No Known Allergies (Unverified , 11/08/15) Subjective 09/18 tele, no acute events, nc, labs pending 09/19 labs are reviewed, no bleeding, wbc 17, on abx on diurestic, ct noted 09/20 tachy, nrb 14L, iv abx, afebrile, labs pending 09/21 cxr w/ bilat infiltrates, vmask, cftx, no distress Objective Objective Current Medications Medications (Trade) Dose Ordered Sig/Tenzin Route PRN Reason Start Time Stop Time Status Last Admin Dose Admin Acetaminophen (Tylenol) 650 mg Q4H PRN ORAL Temp >100.5 09/16/19 23:00 10/16/19 22:59 Albuterol/ Ipratropium (Albuterol/ Ipratropium) 3 ml Q4H PRN HHN Shortness of Breath 09/19/19 16:30 09/24/19 16:29 09/20/19 09:24 Atorvastatin Calcium (Lipitor) 10 mg BEDTIME ORAL 09/17/19 21:00 12/16/19 20:59 09/21/19 20:49 Carbidopa/Levodopa (Sinemet 25/100) 1 tab THREE TIMES A DAY ORAL 09/17/19 09:00 10/17/19 08:59 09/21/19 17:14 Ceftriaxone Sodium 1 gm/ Dextrose 55 ml @ 110 mls/hr Q24H IVPB 09/17/19 21:00 09/24/19 20:59 09/21/19 20:48 Clonidine HCl (Catapres Tab) 0.1 mg Q2H PRN ORAL For High Blood Pressure 09/21/19 09:15 12/20/19 09:14 Dextrose (Dextrose 50%) 25 ml Q30M PRN IV Hypoglycemia 09/16/19 23:00 12/15/19 22:59 Dextrose (Dextrose 50%) 50 ml Q30M PRN IV Hypoglycemia 09/16/19 23:00 12/15/19 22:59 Diltiazem HCl (Cardizem) 30 mg BID ORAL 09/21/19 09:15 10/21/19 09:14 09/21/19 17:13 Docusate Sodium (Colace) 100 mg THREE TIMES A DAY ORAL 09/17/19 09:00 10/17/19 08:59 09/21/19 17:14 Escitalopram Oxalate (Lexapro) 10 mg DAILY ORAL 09/17/19 09:00 10/17/19 08:59 09/21/19 08:47 Furosemide (Lasix) 40 mg EVERY 12 HOURS IV 09/20/19 21:00 10/20/19 20:59 09/21/19 20:50 Insulin Aspart (NovoLOG) BEFORE MEALS AND HS SUBQ 09/17/19 06:30 12/16/19 06:29 09/22/19 06:15 Lorazepam (Ativan) 1 mg Q6H PRN ORAL For Anxiety 09/19/19 01:00 09/26/19 00:59 Mirtazapine (Remeron) 7.5 mg BEDTIME PRN ORAL INSOMNIA 09/19/19 01:00 12/18/19 00:59 Nateglinide (Starlix) 120 mg THREE TIMES A DAY ORAL 09/20/19 13:00 10/17/19 08:59 09/21/19 17:13 Pantoprazole (Protonix) 40 mg EVERY 12 HOURS ORAL 09/17/19 09:00 10/17/19 08:59 09/21/19 20:48 Last 24 Hour Vital Signs Date Time Temp Pulse Resp B/P (MAP) Pulse Ox O2 Delivery O2 Flow Rate FiO2 09/22/19 04:00 97.5 74 18 119/78 (92) 97 09/22/19 04:00 101 09/22/19 00:00 97.0 80 18 114/83 (93) 98 09/22/19 00:00 92 09/21/19 21:00 Venturi Mask 14.0 09/21/19 20:00 77 09/21/19 20:00 96.9 81 18 122/93 (103) 98 09/21/19 17:13 102 157/94 09/21/19 16:00 87 09/21/19 16:00 97.5 102 18 157/94 (115) 99 09/21/19 12:00 99.1 66 18 128/64 (85) 96 09/21/19 12:00 99 09/21/19 09:30 Venturi Mask 09/21/19 09:23 109 168/86 09/21/19 08:00 113 09/21/19 08:00 99.7 109 21 168/86 (113) 93 09/21/19 04:00 98.5 103 18 152/77 (102) 93 09/21/19 04:00 111 09/21/19 00:00 98.8 88 19 109/60 (76) 98 09/21/19 00:00 85 09/20/19 21:00 Non-Rebreather 14.0 09/20/19 20:00 86 09/20/19 20:00 98.9 87 20 119/89 (99) 97 09/20/19 16:00 96.7 102 18 106/80 (89) 98 09/20/19 16:00 84 09/20/19 12:00 93 09/20/19 12:00 98.1 113 21 150/90 (110) 98 09/20/19 09:30 Non-Rebreather 14.0 09/20/19 09:00 125 24 98 Non-Rebreather 15.0 100 115 24 97 09/20/19 08:00 97.7 109 19 139/81 (100) 97 09/20/19 08:00 126 Intake and Output 09/21/19 09/22/19 19:00 07:00 Output Total 1550 ml Balance -1550 ml Output Urine Total 1550 ml # Bowel Movements 1 1 Labs Test 09/20/19 07:30 09/20/19 10:33 09/21/19 06:05 09/22/19 06:02 White Blood Count 17.2 K/UL (4.8-10.8) 14.9 K/UL (4.8-10.8) Red Blood Count 3.11 M/UL (4.20-5.40) 3.03 M/UL (4.20-5.40) Hemoglobin 9.5 G/DL (12.0-16.0) 9.3 G/DL (12.0-16.0) Hematocrit 27.4 % (37.0-47.0) 26.5 % (37.0-47.0) Mean Corpuscular Volume 88 FL (80-99) 88 FL (80-99) Mean Corpuscular Hemoglobin 30.6 PG (27.0-31.0) 30.7 PG (27.0-31.0) Mean Corpuscular Hemoglobin Concent 34.7 G/DL (32.0-36.0) 35.1 G/DL (32.0-36.0) Red Cell Distribution Width 11.0 % (11.6-14.8) 11.0 % (11.6-14.8) Platelet Count 324 K/UL (150-450) 318 K/UL (150-450) Mean Platelet Volume 4.7 FL (6.5-10.1) 5.0 FL (6.5-10.1) Neutrophils (%) (Auto) 79.5 % (45.0-75.0) 80.9 % (45.0-75.0) Lymphocytes (%) (Auto) 12.5 % (20.0-45.0) 11.4 % (20.0-45.0) Monocytes (%) (Auto) 7.0 % (1.0-10.0) 6.1 % (1.0-10.0) Eosinophils (%) (Auto) 0.2 % (0.0-3.0) 0.8 % (0.0-3.0) Basophils (%) (Auto) 0.8 % (0.0-2.0) 0.8 % (0.0-2.0) Sodium Level 136 MMOL/L (136-145) 136 MMOL/L (136-145) Potassium Level 4.6 MMOL/L (3.5-5.1) 4.3 MMOL/L (3.5-5.1) Chloride Level 100 MMOL/L (98-107) 99 MMOL/L (98-107) Carbon Dioxide Level 25 MMOL/L (21-32) 26 MMOL/L (21-32) Anion Gap 11 mmol/L (5-15) 12 mmol/L (5-15) Blood Urea Nitrogen 21 mg/dL (7-18) 27 mg/dL (7-18) Creatinine 1.6 MG/DL (0.55-1.30) 1.3 MG/DL (0.55-1.30) Estimat Glomerular Filtration Rate 32.1 mL/min (>60) 40.7 mL/min (>60) Glucose Level 455 MG/DL (74-106) 370 MG/DL (74-106) Calcium Level 8.6 MG/DL (8.5-10.1) 9.1 MG/DL (8.5-10.1) Phosphorus Level 4.2 MG/DL (2.5-4.9) 3.3 MG/DL (2.5-4.9) Magnesium Level 2.0 MG/DL (1.8-2.4) 2.1 MG/DL (1.8-2.4) Total Bilirubin 0.3 MG/DL (0.2-1.0) 0.5 MG/DL (0.2-1.0) Aspartate Amino Transf (AST/SGOT) 28 U/L (15-37) 35 U/L (15-37) Alanine Aminotransferase (ALT/SGPT) 26 U/L (12-78) 23 U/L (12-78) Alkaline Phosphatase 50 U/L (46-116) 55 U/L (46-116) C-Reactive Protein, Quantitative 10.1 mg/dL (0.00-0.90) 9.4 mg/dL (0.00-0.90) Pro-B-Type Natriuretic Peptide 78753 pg/mL (0-125) 82420 pg/mL (0-125) Total Protein 7.3 G/DL (6.4-8.2) 7.5 G/DL (6.4-8.2) Albumin 2.4 G/DL (3.4-5.0) 2.5 G/DL (3.4-5.0) Globulin 4.9 g/dL 5.0 g/dL Albumin/Globulin Ratio 0.5 (1.0-2.7) 0.5 (1.0-2.7) Arterial Blood pH 7.432 (7.350-7.450) Arterial Blood Partial Pressure CO2 38.3 mmHg (35.0-45.0) Arterial Blood Partial Pressure O2 98.4 mmHg (75.0-100.0) Arterial Blood HCO3 25.0 mmol/L (22.0-26.0) Arterial Blood Oxygen Saturation 96.9 % (95-100) Arterial Blood Base Excess 0.7 (-2-2) Mando Test Positive D-Dimer 3.36 mg/L FEU (0.00-0.49) Uric Acid 7.1 MG/DL (2.6-7.2) Lactate Dehydrogenase 308 U/L (81-234) Total Creatine Kinase 67 U/L (26-308) Troponin I 0.949 ng/mL (0.000-0.056) Height (Feet): 5 Height (Inches): 5.00 Weight (Pounds): 130 Objective Physical Exam Vitals: reviewed General: alert, non-toxic, thin, other - Frail, Chronically Ill Head: normocephalic, atraumatic Heent: bilateral eye normal inspection, bilateral eye PERRl Respiratory: lungs clear, normal breath sounds, vmask++ Cardiovascular: regular rate, rhythm, no edema Gi: non tender, soft, decreased bowel sounds Gu: no CVA tenderness Msk: no calf tenderness, + Atrophy Neuro: alert, sensory intact, w motor weakness Psychiatric: mood/affect normal Skin: ++ Danie Jackson MD Sep 22, 2019 07:12
--- NOTE | 2019-09-22 07:20 | NUR ---
HAND-OFF: Report given to NEFTALI Renee.
[2019-09-22 07:25] LABS: BASOPHILS % (AUTO) 0.7 % (0.0-2.0); EOSINOPHILS % (AUTO) 1.9 % (0.0-3.0); HEMATOCRIT 29.4 % (37.0-47.0); LYMPHOCYTES % (AUTO) 16.9 % (20.0-45.0); MEAN CORPUSCULAR VOLUME 88 FL (80-99); MONOCYTES % (AUTO) 5.9 % (1.0-10.0); NEUTROPHILS % (AUTO) 74.6 % (45.0-75.0); PLATELET COUNT 422 K/UL (150-450); RED BLOOD COUNT 3.34 M/UL (4.20-5.40); WHITE BLOOD COUNT 11.6 K/UL (4.8-10.8)
--- NOTE | 2019-09-22 07:34 | NUR ---
NURSE NOTES: Receive patient and report from o RN in bed, denies any pain at this time. Patient is on venturi mask 14L, FIO22 AT 55% and saturating well at 98%. Noted optifoam on bony prominencies. IV on LAC is intact, patent and SL. Bed is on lowest position with bedside rails up X3, brakes engaged for safety. Call light is within reach. Will continue with the plan of care.
[2019-09-22 07:42] LABS: ALANINE AMINOTRANSFERASE 20 U/L (12-78); ALBUMIN 2.7 G/DL (3.4-5.0); ALBUMIN/GLOBULIN RATIO 0.5 (1.0-2.7); ALKALINE PHOSPHATASE 53 U/L (46-116); ANION GAP 14 mmol/L (5-15); ASPARTATE AMINO TRANSFERASE 28 U/L (15-37); BILIRUBIN,TOTAL 0.4 MG/DL (0.2-1.0); BLOOD UREA NITROGEN 34 mg/dL (7-18); CALCIUM 9.2 MG/DL (8.5-10.1); CARBON DIOXIDE 27 MMOL/L (21-32); CHLORIDE 101 MMOL/L (98-107); CREATININE 1.4 MG/DL (0.55-1.30); PHOSPHORUS 3.9 MG/DL (2.5-4.9); POTASSIUM 3.7 MMOL/L (3.5-5.1); SODIUM 142 MMOL/L (136-145)
--- NOTE | 2019-09-22 07:42 | Cardiac Electrophysiology PN ---
Assessment/Plan Status Narrative 1. Patchy densities and ground-glass opacities throughout right greater than left, concerning for an infectious/inflammatory process and/or pulmonary edema. 2. Small bilateral pleural effusions. 3. No pulmonary embolus identified. 4. Mild prominence of the pulmonary artery is suggestive of pulmonary arterial hypertension. Assessment/Plan 1. Hypertension on Lasix 40 iv bid, Cardizem 30 bid and prn Clonidine 2. Troponin leak. First 2 troponins were negative. 3rd troponin now mildly elevated that could be due to renal failure/ demand ischemia. Repeat troponin today is pending. Echo EF 65% 3. Fever and UTI on iv Abx. Ruled out for COVID. 4. Diabetes. 5. Contracted gallbladder, packed with stones by Abd US. FU GI 6. Respiratory failure, COPD and pulmonary HTN. Chest CT showed no PE. On Lasix 4o iv bid 7. Hyperlipidemia, on Lipitor. PATRICK RN and Dr Alonzo Subjective Subjective On iv Abx. On 14 liter Venturi Mask and 55% Fio2 Chest CT no PE. BNP > 83973. On iv Lasix Objective Last 24 Hour Vital Signs Date Time Temp Pulse Resp B/P (MAP) Pulse Ox O2 Delivery O2 Flow Rate FiO2 09/22/19 04:00 97.5 74 18 119/78 (92) 97 09/22/19 04:00 101 09/22/19 00:00 97.0 80 18 114/83 (93) 98 09/22/19 00:00 92 09/21/19 21:00 Venturi Mask 14.0 09/21/19 20:00 77 09/21/19 20:00 96.9 81 18 122/93 (103) 98 09/21/19 17:13 102 157/94 09/21/19 16:00 87 09/21/19 16:00 97.5 102 18 157/94 (115) 99 09/21/19 12:00 99.1 66 18 128/64 (85) 96 09/21/19 12:00 99 09/21/19 09:30 Venturi Mask 09/21/19 09:23 109 168/86 09/21/19 08:00 113 09/21/19 08:00 99.7 109 21 168/86 (113) 93 Intake and Output 09/21/19 09/22/19 18:59 06:59 Output Total 1550 ml Balance -1550 ml Output Urine Total 1550 ml # Bowel Movements 1 1 Laboratory Tests Test 09/22/19 06:02 White Blood Count 11.6 K/UL (4.8-10.8) H Red Blood Count 3.34 M/UL (4.20-5.40) L Hemoglobin 10.0 G/DL (12.0-16.0) L Hematocrit 29.4 % (37.0-47.0) L Mean Corpuscular Volume 88 FL (80-99) Mean Corpuscular Hemoglobin 30.0 PG (27.0-31.0) Mean Corpuscular Hemoglobin Concent 34.1 G/DL (32.0-36.0) Red Cell Distribution Width 11.0 % (11.6-14.8) L Platelet Count 422 K/UL (150-450) Mean Platelet Volume 4.7 FL (6.5-10.1) L Neutrophils (%) (Auto) 74.6 % (45.0-75.0) Lymphocytes (%) (Auto) 16.9 % (20.0-45.0) L Monocytes (%) (Auto) 5.9 % (1.0-10.0) Eosinophils (%) (Auto) 1.9 % (0.0-3.0) Basophils (%) (Auto) 0.7 % (0.0-2.0) Sodium Level Pending Potassium Level Pending Chloride Level Pending Carbon Dioxide Level Pending Blood Urea Nitrogen Pending Creatinine Pending Estimat Glomerular Filtration Rate Pending Glucose Level Pending Calcium Level Pending Phosphorus Level Pending Magnesium Level Pending Total Bilirubin Pending Aspartate Amino Transf (AST/SGOT) Pending Alanine Aminotransferase (ALT/SGPT) Pending Alkaline Phosphatase Pending Troponin I Pending C-Reactive Protein, Quantitative Pending Pro-B-Type Natriuretic Peptide Pending Total Protein Pending Albumin Pending Globulin Pending Objective HEAD AND NECK: No JVD. LUNGS: Clear. CARDIOVASCULAR: Shows regular S1 and S2 with no gallop. ABDOMEN: Soft. EXTREMITIES: No pitting edema. Noe Galdamez MD Sep 22, 2019 07:42
[2019-09-22 08:00] VITALS: BP 157/98
[2019-09-22] MEDS: Levodopa/Carbidopa 25/100 tab ORAL SCH ×3 (08:13→17:42)
[2019-09-22] MEDS: dilTIAZem HCl 30mg tab ORAL SCH ×2 (08:21→17:42)
[2019-09-22] MEDS: Docusate 100mg cap ORAL SCH ×3 (08:23→17:42)
--- NOTE | 2019-09-22 10:09 | Nephrology Progress Note ---
Assessment/Plan Problem List: (1) MER (acute kidney injury) (2) Dehydration (3) Type 2 diabetes mellitus (4) Anemia (5) UTI (urinary tract infection) Assessment Acute renal failure, most likely dehydration Will watch for underlying chronic kidney disease. Anemia, etiology to be identified Toxic metabolic encephalopathy on presentation Diabetes mellitus [id number] with hemoglobin A1c of 8.9 History of COPD History of pulmonary hypertension History of UTI, evidence of UTI on this admission Patient currently full code however on previous admission was DNR Plan September 21: Renal parameters stable. Continue per cardiology management. Remains full code and on Venturi mask. Will continue to monitor electrolytes and renal parameters. September 20: Discussed with Dr. Galdamez: Serum creatinine down to 1.3. Troponin I went up. Cardizem started for blood pressure. Patient remains on nonrebreather mask. Continue current management. Previously: Serum creatinine gonsalo to 1.6. This morning's blood sugar 455. White blood cells gonsalo to over 17,000. Continue to treat underlying infection. Continue per ID and pulmonary. Avoid nephrotoxic's. Continue to monitor renal parameters. Stop IV hydration. 1 dose of Lasix IV and 1 dose of potassium chloride p.o. ordered. 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 Per orders. Monitor renal parameters Monitor electrolytes Keep the blood pressure and blood sugar in check Urine studies Antibiotics as needed Per consultants Subjective ROS Limited/Unobtainable: No Constitutional: Reports: malaise, weakness Objective Objective Last 24 Hour Vital Signs Date Time Temp Pulse Resp B/P (MAP) Pulse Ox O2 Delivery O2 Flow Rate FiO2 09/22/19 09:00 Venturi Mask 14.0 09/22/19 08:21 109 160/84 09/22/19 08:00 113 09/22/19 08:00 97.9 113 18 157/98 (117) 98 09/22/19 04:00 97.5 74 18 119/78 (92) 97 09/22/19 04:00 101 09/22/19 00:00 97.0 80 18 114/83 (93) 98 09/22/19 00:00 92 09/21/19 21:00 Venturi Mask 14.0 09/21/19 20:00 77 09/21/19 20:00 96.9 81 18 122/93 (103) 98 09/21/19 17:13 102 157/94 09/21/19 16:00 87 09/21/19 16:00 97.5 102 18 157/94 (115) 99 09/21/19 12:00 99.1 66 18 128/64 (85) 96 09/21/19 12:00 99 Intake and Output 09/21/19 09/22/19 19:00 07:00 Output Total 1550 ml Balance -1550 ml Output Urine Total 1550 ml # Bowel Movements 1 1 Laboratory Tests 09/22/19 06:02: White Blood Count 11.6H, Red Blood Count 3.34L, Hemoglobin 10.0L, Hematocrit 29.4L, Mean Corpuscular Volume 88, Mean Corpuscular Hemoglobin 30.0, Mean Corpuscular Hemoglobin Concent 34.1, Red Cell Distribution Width 11.0L, Platelet Count 422, Mean Platelet Volume 4.7L, Neutrophils (%) (Auto) 74.6, Lymphocytes (%) (Auto) 16.9L, Monocytes (%) (Auto) 5.9, Eosinophils (%) (Auto) 1.9, Basophils (%) (Auto) 0.7, Sodium Level 142, Potassium Level 3.7, Chloride Level 101, Carbon Dioxide Level 27, Anion Gap 14, Blood Urea Nitrogen 34H, Creatinine 1.4H, Estimat Glomerular Filtration Rate 37.4, Glucose Level 377H, Calcium Level 9.2, Phosphorus Level 3.9, Magnesium Level 2.1, Total Bilirubin 0.4, Aspartate Amino Transf (AST/SGOT) 28, Alanine Aminotransferase (ALT/SGPT) 20, Alkaline Phosphatase 53, Troponin I 0.413H, C-Reactive Protein, Quantitative 5.9H, Pro-B-Type Natriuretic Peptide 85346O, Total Protein 7.9, Albumin 2.7L, Globulin 5.2, Albumin/Globulin Ratio 0.5L Height (Feet): 5 Height (Inches): 5.00 Weight (Pounds): 130 General Appearance: mild distress EENT: other - On Venturi mask now Cardiovascular: tachycardia Respiratory/Chest: decreased breath sounds Abdomen: distended José Miguel Calvert MD Sep 22, 2019 10:09
--- NOTE | 2019-09-22 10:53 | Pulmonology Progress Note ---
Subjective ROS Limited/Unobtainable: No Interval Events: Now in ventimask Constitutional: Reports: no symptoms HEENT: Repors: no symptoms Respiratory: Reports: shortness of breath Cardiovascular: Reports: no symptoms Gastrointestinal/Abdominal: Reports: no symptoms Allergies: Coded Allergies: No Known Allergies (Unverified , 11/08/15) Objective Last 24 Hour Vital Signs Date Time Temp Pulse Resp B/P (MAP) Pulse Ox O2 Delivery O2 Flow Rate FiO2 09/22/19 09:00 Venturi Mask 14.0 09/22/19 08:21 109 160/84 09/22/19 08:00 113 09/22/19 08:00 97.9 113 18 157/98 (117) 98 09/22/19 04:00 97.5 74 18 119/78 (92) 97 09/22/19 04:00 101 09/22/19 00:00 97.0 80 18 114/83 (93) 98 09/22/19 00:00 92 09/21/19 21:00 Venturi Mask 14.0 09/21/19 20:00 77 09/21/19 20:00 96.9 81 18 122/93 (103) 98 09/21/19 17:13 102 157/94 09/21/19 16:00 87 09/21/19 16:00 97.5 102 18 157/94 (115) 99 09/21/19 12:00 99.1 66 18 128/64 (85) 96 09/21/19 12:00 99 Intake and Output 09/21/19 09/22/19 19:00 07:00 Output Total 1550 ml Balance -1550 ml Output Urine Total 1550 ml # Bowel Movements 1 1 General Appearance: no acute distress HEENT: normocephalic Respiratory: chest wall non-tender, decreased breath sounds Cardiovascular: normal peripheral pulses, normal rate Abdomen: normal bowel sounds, soft, non tender Extremities: no cyanosis Laboratory Tests 09/22/19 06:02: White Blood Count 11.6H, Red Blood Count 3.34L, Hemoglobin 10.0L, Hematocrit 29.4L, Mean Corpuscular Volume 88, Mean Corpuscular Hemoglobin 30.0, Mean Corpuscular Hemoglobin Concent 34.1, Red Cell Distribution Width 11.0L, Platelet Count 422, Mean Platelet Volume 4.7L, Neutrophils (%) (Auto) 74.6, Lymphocytes (%) (Auto) 16.9L, Monocytes (%) (Auto) 5.9, Eosinophils (%) (Auto) 1.9, Basophils (%) (Auto) 0.7, Sodium Level 142, Potassium Level 3.7, Chloride Level 101, Carbon Dioxide Level 27, Anion Gap 14, Blood Urea Nitrogen 34H, Creatinine 1.4H, Estimat Glomerular Filtration Rate 37.4, Glucose Level 377H, Calcium Level 9.2, Phosphorus Level 3.9, Magnesium Level 2.1, Total Bilirubin 0.4, Aspartate Amino Transf (AST/SGOT) 28, Alanine Aminotransferase (ALT/SGPT) 20, Alkaline Phosphatase 53, Troponin I 0.413H, C-Reactive Protein, Quantitative 5.9H, Pro-B-Type Natriuretic Peptide 69812M, Total Protein 7.9, Albumin 2.7L, Globulin 5.2, Albumin/Globulin Ratio 0.5L Current Medications Medications (Trade) Dose Ordered Sig/Tenzin Route PRN Reason Start Time Stop Time Status Last Admin Dose Admin Acetaminophen (Tylenol) 650 mg Q4H PRN ORAL Temp >100.5 09/16/19 23:00 10/16/19 22:59 Albuterol/ Ipratropium (Albuterol/ Ipratropium) 3 ml Q4H PRN HHN Shortness of Breath 09/19/19 16:30 09/24/19 16:29 09/20/19 09:24 Atorvastatin Calcium (Lipitor) 10 mg BEDTIME ORAL 09/17/19 21:00 12/16/19 20:59 09/21/19 20:49 Carbidopa/Levodopa (Sinemet 25/100) 1 tab THREE TIMES A DAY ORAL 09/17/19 09:00 10/17/19 08:59 09/22/19 08:13 Ceftriaxone Sodium 1 gm/ Dextrose 55 ml @ 110 mls/hr Q24H IVPB 09/17/19 21:00 09/24/19 20:59 09/21/19 20:48 Clonidine HCl (Catapres Tab) 0.1 mg Q2H PRN ORAL For High Blood Pressure 09/21/19 09:15 12/20/19 09:14 Dextrose (Dextrose 50%) 25 ml Q30M PRN IV Hypoglycemia 09/16/19 23:00 12/15/19 22:59 Dextrose (Dextrose 50%) 50 ml Q30M PRN IV Hypoglycemia 09/16/19 23:00 12/15/19 22:59 Diltiazem HCl (Cardizem) 30 mg BID ORAL 09/21/19 09:15 10/21/19 09:14 09/22/19 08:21 Docusate Sodium (Colace) 100 mg THREE TIMES A DAY ORAL 09/17/19 09:00 10/17/19 08:59 09/22/19 08:23 Escitalopram Oxalate (Lexapro) 10 mg DAILY ORAL 09/17/19 09:00 10/17/19 08:59 09/22/19 08:13 Furosemide (Lasix) 40 mg EVERY 12 HOURS IV 09/20/19 21:00 10/20/19 20:59 09/22/19 08:22 Insulin Aspart (NovoLOG) BEFORE MEALS AND HS SUBQ 09/17/19 06:30 12/16/19 06:29 09/22/19 06:15 Lorazepam (Ativan) 1 mg Q6H PRN ORAL For Anxiety 09/19/19 01:00 09/26/19 00:59 Mirtazapine (Remeron) 7.5 mg BEDTIME PRN ORAL INSOMNIA 09/19/19 01:00 12/18/19 00:59 Nateglinide (Starlix) 120 mg THREE TIMES A DAY ORAL 09/20/19 13:00 10/17/19 08:59 09/22/19 08:14 Pantoprazole (Protonix) 40 mg EVERY 12 HOURS ORAL 09/17/19 09:00 10/17/19 08:59 09/22/19 08:13 Assessment/Plan Assessment/Plan IMPRESSION: 1. Hypoxemia. Suspect pulm edema 2. Diabetes mellitus. 3. Decubitus ulcer, sacrum. 4. UTI. 5. Hypertension. 6. Hyperlipidemia. DISCUSSION: Will continue to diurese COVID 19 pcr x1 is negative Continue O2 Abx for UTI Negative venous duplex lower extremities Valery Lee Omar Syed MD Sep 22, 2019 10:53
[2019-09-22 12:00] VITALS: BP 152/89
--- NOTE | 2019-09-22 12:17 | NUR ---
CASE MANAGEMENT:REVIEW 11/22/19 SI: BILATERAL INFILTRATES. HYPOXEMIA. UTI COVID 19 NOT DETECTED 97.9 113 18 157/98 98% ON 14L VIA VENTURI MASK WBC=11.6 H/H-10.0/29.4 BUN+34 CR+1.4 TROPONIN(+) 0.413 IS: IV ROCEPHIN Q24 CARDIZEM PO BID IV LASIX Q12 LEXAPRO PO QD PROTONIX PO QD SINEMET PO TID : TELEMETRY STATUS DCP: PATIENT IS FROM [facility] Addendum: 09/24/19 at 1215 by SAMSON ELLIS, BASSAM SIFUENTESN CORRECTION ABOVE REVIEW IS FOR 09/22/19
--- NOTE | 2019-09-22 14:18 | Infectious Diseases Prog Note ---
Assessment/Plan Assessment/Plan IMPRESSION: Sepsis resolving Pneumonia E. coli UTI. Diabetes mellitus with hyperglycemia, COPD, Hypertension, pulmonary hypertension, Diastolic CHF, Parkinson disease, anemia, major depression. RECOMMENDATION: We will continue ceftriaxone. F/U CBC Subjective ROS Limited/Unobtainable: No Constitutional: Reports: other - feels better Respiratory: Reports: no symptoms Cardiovascular: Reports: no symptoms Gastrointestinal/Abdominal: Reports: no symptoms Genitourinary: Reports: no symptoms Allergies: Coded Allergies: No Known Allergies (Unverified , 11/08/15) Objective Vital Signs Last 24 Hour Vital Signs Date Time Temp Pulse Resp B/P (MAP) Pulse Ox O2 Delivery O2 Flow Rate FiO2 09/22/19 12:00 90 09/22/19 12:00 98.1 87 18 152/89 (110) 97 09/22/19 09:00 Venturi Mask 14.0 09/22/19 08:21 109 160/84 09/22/19 08:00 113 09/22/19 08:00 97.9 113 18 157/98 (117) 98 09/22/19 04:00 97.5 74 18 119/78 (92) 97 09/22/19 04:00 101 09/22/19 00:00 97.0 80 18 114/83 (93) 98 09/22/19 00:00 92 09/21/19 21:00 Venturi Mask 14.0 09/21/19 20:00 77 09/21/19 20:00 96.9 81 18 122/93 (103) 98 09/21/19 17:13 102 157/94 09/21/19 16:00 87 09/21/19 16:00 97.5 102 18 157/94 (115) 99 Height (Feet): 5 Height (Inches): 5.00 Weight (Pounds): 130 General Appearance: no acute distress HEENT: mucous membranes moist Respiratory/Chest: lungs clear, other - oxygen by nasal cannula Cardiovascular: normal rate Abdomen: soft, non tender Extremities: no edema Neurologic/Psychiatric: alert, responsive Laboratory Tests Test 09/22/19 06:02 White Blood Count 11.6 K/UL (4.8-10.8) H Red Blood Count 3.34 M/UL (4.20-5.40) L Hemoglobin 10.0 G/DL (12.0-16.0) L Hematocrit 29.4 % (37.0-47.0) L Mean Corpuscular Volume 88 FL (80-99) Mean Corpuscular Hemoglobin 30.0 PG (27.0-31.0) Mean Corpuscular Hemoglobin Concent 34.1 G/DL (32.0-36.0) Red Cell Distribution Width 11.0 % (11.6-14.8) L Platelet Count 422 K/UL (150-450) Mean Platelet Volume 4.7 FL (6.5-10.1) L Neutrophils (%) (Auto) 74.6 % (45.0-75.0) Lymphocytes (%) (Auto) 16.9 % (20.0-45.0) L Monocytes (%) (Auto) 5.9 % (1.0-10.0) Eosinophils (%) (Auto) 1.9 % (0.0-3.0) Basophils (%) (Auto) 0.7 % (0.0-2.0) Sodium Level 142 MMOL/L (136-145) Potassium Level 3.7 MMOL/L (3.5-5.1) Chloride Level 101 MMOL/L (98-107) Carbon Dioxide Level 27 MMOL/L (21-32) Anion Gap 14 mmol/L (5-15) Blood Urea Nitrogen 34 mg/dL (7-18) H Creatinine 1.4 MG/DL (0.55-1.30) H Estimat Glomerular Filtration Rate 37.4 mL/min (>60) Glucose Level 377 MG/DL (74-106) H Calcium Level 9.2 MG/DL (8.5-10.1) Phosphorus Level 3.9 MG/DL (2.5-4.9) Magnesium Level 2.1 MG/DL (1.8-2.4) Total Bilirubin 0.4 MG/DL (0.2-1.0) Aspartate Amino Transf (AST/SGOT) 28 U/L (15-37) Alanine Aminotransferase (ALT/SGPT) 20 U/L (12-78) Alkaline Phosphatase 53 U/L (46-116) Troponin I 0.413 ng/mL (0.000-0.056) C-Reactive Protein, Quantitative 5.9 mg/dL (0.00-0.90) H Pro-B-Type Natriuretic Peptide 61088 pg/mL (0-125) H Total Protein 7.9 G/DL (6.4-8.2) Albumin 2.7 G/DL (3.4-5.0) L Globulin 5.2 g/dL Albumin/Globulin Ratio 0.5 (1.0-2.7) L Current Medications Medications (Trade) Dose Ordered Sig/Tenzin Route PRN Reason Start Time Stop Time Status Last Admin Dose Admin Acetaminophen (Tylenol) 650 mg Q4H PRN ORAL Temp >100.5 09/16/19 23:00 10/16/19 22:59 Albuterol/ Ipratropium (Albuterol/ Ipratropium) 3 ml Q4H PRN HHN Shortness of Breath 09/19/19 16:30 09/24/19 16:29 09/20/19 09:24 Atorvastatin Calcium (Lipitor) 10 mg BEDTIME ORAL 09/17/19 21:00 12/16/19 20:59 09/21/19 20:49 Carbidopa/Levodopa (Sinemet 25/100) 1 tab THREE TIMES A DAY ORAL 09/17/19 09:00 10/17/19 08:59 09/22/19 12:35 Ceftriaxone Sodium 1 gm/ Dextrose 55 ml @ 110 mls/hr Q24H IVPB 09/17/19 21:00 09/24/19 20:59 09/21/19 20:48 Clonidine HCl (Catapres Tab) 0.1 mg Q2H PRN ORAL For High Blood Pressure 09/21/19 09:15 12/20/19 09:14 Dextrose (Dextrose 50%) 25 ml Q30M PRN IV Hypoglycemia 09/16/19 23:00 12/15/19 22:59 Dextrose (Dextrose 50%) 50 ml Q30M PRN IV Hypoglycemia 09/16/19 23:00 12/15/19 22:59 Diltiazem HCl (Cardizem) 30 mg BID ORAL 09/21/19 09:15 10/21/19 09:14 09/22/19 08:21 Docusate Sodium (Colace) 100 mg THREE TIMES A DAY ORAL 09/17/19 09:00 10/17/19 08:59 09/22/19 12:36 Escitalopram Oxalate (Lexapro) 10 mg DAILY ORAL 09/17/19 09:00 10/17/19 08:59 09/22/19 08:13 Furosemide (Lasix) 40 mg EVERY 12 HOURS IV 09/20/19 21:00 10/20/19 20:59 09/22/19 08:22 Insulin Aspart (NovoLOG) BEFORE MEALS AND HS SUBQ 09/17/19 06:30 12/16/19 06:29 09/22/19 11:26 Lorazepam (Ativan) 1 mg Q6H PRN ORAL For Anxiety 09/19/19 01:00 09/26/19 00:59 Mirtazapine (Remeron) 7.5 mg BEDTIME PRN ORAL INSOMNIA 09/19/19 01:00 12/18/19 00:59 Nateglinide (Starlix) 120 mg THREE TIMES A DAY ORAL 09/20/19 13:00 10/17/19 08:59 09/22/19 12:35 Pantoprazole (Protonix) 40 mg EVERY 12 HOURS ORAL 09/17/19 09:00 10/17/19 08:59 09/22/19 08:13 Rogelio Martinez MD Sep 22, 2019 14:18
--- NOTE | 2019-09-22 15:02 | NUR ---
ST NOTES: SWALLOW STATUS UPDATES ON CURRENT CXR 09/21/19. Findings: Interim development of bilateral reticular interstitial and airspace infiltrates. Heart size is normal. There is now a small left pleural effusion Impression: Bilateral infiltrates, concerning for pneumonia. Small left pleural effusion VITALS ON VENTURI MASK 14 L: HR: 87 RR: 18 SP02 97% Patient with ongoing and poor PO, Patient states not having an appetite. Per RN, no significant overt s/s of aspiration with current diet of Moist Puree and [place] Thick Liquids, given Patients most recent CXR with bilateral infiltrates and concern for PNA, concern for Patients safety with PO intake on Venti mask, however, POLST states no means of alternative nutrition/hydration. PATIENT CONTINUES TO BE A HIGH RISK FOR SILENT ASPIRATION. PLAN: 1. Recommend continuing current diet consistency via 1 to 1 careful handfeeding, Patient does like high calorie supplements. 2. Please assist Patient with oral hygiene BID, RN aware of Patients oral care needs. 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
[2019-09-22 16:00] VITALS: BP 132/83
--- NOTE | 2019-09-22 19:52 | NUR ---
NURSE NOTES: Received patient in bed, awake, alert, oriented x2/3, on venturi mask at 14 liters. IV site is clean dry and intact, aspiration precautions are in place, call light is within reach, bed is lowered, locked, alarm is on, will continue to monitor for comfort and safety.
--- NOTE | 2019-09-22 19:58 | NUR ---
HAND-OFF: Report given to Dee LINDSAY. Patient is in stable condition.
[2019-09-22 20:00] VITALS: BP 140/85
[2019-09-22] MEDS: cefTRIAXone 1 GM in D5W 55 ML IVPB SCH (21:43)
--- NOTE | 2019-09-22 23:15 | General Progress Note ---
Assessment/Plan Problem List: (1) Severe sepsis ICD Codes: A41.9 - Sepsis, unspecified organism; R65.20 - Severe sepsis without septic shock SNOMED: 34899241 (2) Constipation ICD Codes: K59.00 - Constipation, unspecified SNOMED: 26065349 (3) Cholelithiasis ICD Codes: K80.20 - Calculus of gallbladder without cholecystitis without obstruction SNOMED: 082119162 (4) Pulmonary hypertension ICD Codes: I27.20 - Pulmonary hypertension, unspecified SNOMED: 72272267 (5) Dehydration ICD Codes: E86.0 - Dehydration SNOMED: 48484384 (6) UTI (urinary tract infection) ICD Codes: N39.0 - Urinary tract infection, site not specified SNOMED: 19908429 (7) Encephalopathy ICD Codes: G93.40 - Encephalopathy, unspecified SNOMED: 10168419, 896237948 (8) Anemia ICD Codes: D64.9 - Anemia, unspecified SNOMED: 901046291 (9) Hyperlipidemia associated with type 2 diabetes mellitus ICD Codes: E11.69 - Type 2 diabetes mellitus with other specified complication ; E78.5 - Hyperlipidemia, unspecified SNOMED: 351038725, 445019867700 (10) Type 2 diabetes mellitus ICD Codes: E11.9 - Type 2 diabetes mellitus without complications SNOMED: 93944933, 438072991 Status: progressing Assessment/Plan: resp insuff on oxygen no acute events s/p svt azotemia gallstones consulted dr [place] copd Subjective ROS Limited/Unobtainable: Yes Allergies: Coded Allergies: No Known Allergies (Unverified , 11/08/15) Objective Last 24 Hour Vital Signs Date Time Temp Pulse Resp B/P (MAP) Pulse Ox O2 Delivery O2 Flow Rate FiO2 09/22/19 21:29 Venturi Mask 14.0 09/22/19 20:00 99.0 81 18 140/85 (103) 95 09/22/19 17:42 91 132/83 09/22/19 16:00 97.6 91 18 132/83 (99) 97 09/22/19 16:00 91 09/22/19 12:00 90 09/22/19 12:00 98.1 87 18 152/89 (110) 97 09/22/19 09:00 Venturi Mask 14.0 09/22/19 08:21 109 160/84 09/22/19 08:00 113 09/22/19 08:00 97.9 113 18 157/98 (117) 98 09/22/19 04:00 97.5 74 18 119/78 (92) 97 09/22/19 04:00 101 09/22/19 00:00 97.0 80 18 114/83 (93) 98 09/22/19 00:00 92 Intake and Output 09/21/19 09/22/19 19:00 07:00 Output Total 1550 ml Balance -1550 ml Output Urine Total 1550 ml # Bowel Movements 1 1 Laboratory Tests 09/22/19 06:02: White Blood Count 11.6H, Red Blood Count 3.34L, Hemoglobin 10.0L, Hematocrit 29.4L, Mean Corpuscular Volume 88, Mean Corpuscular Hemoglobin 30.0, Mean Corpuscular Hemoglobin Concent 34.1, Red Cell Distribution Width 11.0L, Platelet Count 422, Mean Platelet Volume 4.7L, Neutrophils (%) (Auto) 74.6, Lymphocytes (%) (Auto) 16.9L, Monocytes (%) (Auto) 5.9, Eosinophils (%) (Auto) 1.9, Basophils (%) (Auto) 0.7, Sodium Level 142, Potassium Level 3.7, Chloride Level 101, Carbon Dioxide Level 27, Anion Gap 14, Blood Urea Nitrogen 34H, Creatinine 1.4H, Estimat Glomerular Filtration Rate 37.4, Glucose Level 377H, Calcium Level 9.2, Phosphorus Level 3.9, Magnesium Level 2.1, Total Bilirubin 0.4, Aspartate Amino Transf (AST/SGOT) 28, Alanine Aminotransferase (ALT/SGPT) 20, Alkaline Phosphatase 53, Troponin I 0.413H, C-Reactive Protein, Quantitative 5.9H, Pro-B-Type Natriuretic Peptide 38451Y, Total Protein 7.9, Albumin 2.7L, Globulin 5.2, Albumin/Globulin Ratio 0.5L Height (Feet): 5 Height (Inches): 5.00 Weight (Pounds): 130 Amelie Rios MD Sep 22, 2019 23:15
[2019-09-23] VITALS: BP 140/78
[2019-09-23 04:00] VITALS: BP 138/74
[2019-09-23] MEDS: NovoLOG Insulin Flexpen SUBQ SCH ×4 (05:58→22:53)
[2019-09-23 08:00] VITALS: BP 168/83
--- NOTE | 2019-09-23 08:19 | NUR ---
NURSE NOTES: Received report from Juan Price. Pt A/O x3. No s/s of acute respiratory and cardiac distress. On venturi mask @ 14L. SL on left AC patent and intact. Bed in low position, side rails upx3 and call light within reach. Will continue with plan of care.
[2019-09-23 09:18] LABS: BASOPHILS % (AUTO) 0.4 % (0.0-2.0); EOSINOPHILS % (AUTO) 0.4 % (0.0-3.0); HEMATOCRIT 28.3 % (37.0-47.0); HEMOGLOBIN 9.9 G/DL (12.0-16.0); LYMPHOCYTES % (AUTO) 11.5 % (20.0-45.0); MEAN CORPUSCULAR VOLUME 87 FL (80-99); MONOCYTES % (AUTO) 9.2 % (1.0-10.0); NEUTROPHILS % (AUTO) 78.6 % (45.0-75.0); PLATELET COUNT 442 K/UL (150-450); RED BLOOD COUNT 3.24 M/UL (4.20-5.40); RED CELL DISTRIBUTION WIDTH 11.1 % (11.6-14.8); WHITE BLOOD COUNT 12.8 K/UL (4.8-10.8)
--- NOTE | 2019-09-23 09:30 | Progress Note ---
DATE: 09/22/2019 SUBJECTIVE: The patient is calm in bed, in no acute distress noted. More interactive, forgetful, and still has episodes of agitation. MENTAL STATUS EXAMINATION: The patient is alert and oriented times to self, place, and some insight into the situation. Mood is neutral to anxious. Affect is flat. Thought process, there is a paucity of thought content. Thought content, no suicidal or homicidal ideation. Cognition is impaired. Insight and judgment is impaired. ASSESSMENT: Stable. PLAN: 1. Continue the lorazepam p.r.n. 2. Mirtazapine. 3. Lexapro. 4. Continue to follow and readjust the medications. Stephanie Ybarra M.D. DR: LIZ JOB#: [id number] CC:
[2019-09-23] MEDS: dilTIAZem HCl 30mg tab ORAL SCH ×2 (09:34→18:06)
[2019-09-23] MEDS: Docusate 100mg cap ORAL SCH ×3 (09:34→18:06)
[2019-09-23] MEDS: Levodopa/Carbidopa 25/100 tab ORAL SCH ×3 (09:35→18:06)
[2019-09-23 09:48] LABS: ALANINE AMINOTRANSFERASE 25 U/L (12-78); ALBUMIN 2.8 G/DL (3.4-5.0); ALBUMIN/GLOBULIN RATIO 0.6 (1.0-2.7); ALKALINE PHOSPHATASE 56 U/L (46-116); ANION GAP 9 mmol/L (5-15); ASPARTATE AMINO TRANSFERASE 25 U/L (15-37); BILIRUBIN,TOTAL 0.2 MG/DL (0.2-1.0); BLOOD UREA NITROGEN 36 mg/dL (7-18); CALCIUM 8.9 MG/DL (8.5-10.1); CARBON DIOXIDE 32 MMOL/L (21-32); CHLORIDE 102 MMOL/L (98-107); CREATININE 1.5 MG/DL (0.55-1.30); PHOSPHORUS 3.3 MG/DL (2.5-4.9); POTASSIUM 3.7 MMOL/L (3.5-5.1); SODIUM 143 MMOL/L (136-145)
--- NOTE | 2019-09-23 10:29 | Pulmonology Progress Note ---
Subjective ROS Limited/Unobtainable: Yes Interval Events: Now in ventimask Constitutional: Reports: other - feels better HEENT: Repors: no symptoms Respiratory: Reports: shortness of breath Cardiovascular: Reports: no symptoms Gastrointestinal/Abdominal: Reports: no symptoms Allergies: Coded Allergies: No Known Allergies (Unverified , 11/08/15) Objective Last 24 Hour Vital Signs Date Time Temp Pulse Resp B/P (MAP) Pulse Ox O2 Delivery O2 Flow Rate FiO2 09/23/19 09:34 71 168/83 09/23/19 08:00 96.6 71 18 168/83 (111) 96 09/23/19 04:00 93 09/23/19 04:00 98.1 89 18 138/74 (95) 98 09/23/19 00:00 84 09/23/19 00:00 97.0 89 19 140/78 (98) 98 89 09/22/19 21:29 Venturi Mask 14.0 09/22/19 20:00 78 09/22/19 20:00 99.0 81 18 140/85 (103) 95 09/22/19 17:42 91 132/83 09/22/19 16:00 97.6 91 18 132/83 (99) 97 09/22/19 16:00 91 09/22/19 12:00 90 09/22/19 12:00 98.1 87 18 152/89 (110) 97 Intake and Output 09/22/19 09/23/19 19:00 07:00 Output Total 250 ml Balance -250 ml Output Urine Total 250 ml # Bowel Movements 1 1 General Appearance: no acute distress HEENT: normocephalic Respiratory: chest wall non-tender, decreased breath sounds Cardiovascular: normal peripheral pulses, normal rate Abdomen: normal bowel sounds, soft, non tender Extremities: no cyanosis Laboratory Tests 09/23/19 08:45: White Blood Count 12.8H, Red Blood Count 3.24L, Hemoglobin 9.9L, Hematocrit 28.3L, Mean Corpuscular Volume 87, Mean Corpuscular Hemoglobin 30.4, Mean Corpuscular Hemoglobin Concent 34.8, Red Cell Distribution Width 11.1L, Platelet Count 442, Mean Platelet Volume 4.5L, Neutrophils (%) (Auto) 78.6H, Lymphocytes (%) (Auto) 11.5L, Monocytes (%) (Auto) 9.2, Eosinophils (%) (Auto) 0.4, Basophils (%) (Auto) 0.4, Sodium Level 143, Potassium Level 3.7, Chloride Level 102, Carbon Dioxide Level 32, Anion Gap 9, Blood Urea Nitrogen 36H, Creatinine 1.5H, Estimat Glomerular Filtration Rate 34.5, Glucose Level 427H, Calcium Level 8.9, Phosphorus Level 3.3, Magnesium Level 2.3, Total Bilirubin 0.2, Aspartate Amino Transf (AST/SGOT) 25, Alanine Aminotransferase (ALT/SGPT) 25, Alkaline Phosphatase 56, C-Reactive Protein, Quantitative 3.2H, Pro-B-Type Natriuretic Peptide 6429H, Total Protein 7.7, Albumin 2.8L, Globulin 4.9, Albumin/Globulin Ratio 0.6L Current Medications Medications (Trade) Dose Ordered Sig/Tenzin Route PRN Reason Start Time Stop Time Status Last Admin Dose Admin Acetaminophen (Tylenol) 650 mg Q4H PRN ORAL Temp >100.5 09/16/19 23:00 10/16/19 22:59 Albuterol/ Ipratropium (Albuterol/ Ipratropium) 3 ml Q4H PRN HHN Shortness of Breath 09/19/19 16:30 09/24/19 16:29 09/20/19 09:24 Atorvastatin Calcium (Lipitor) 10 mg BEDTIME ORAL 09/17/19 21:00 12/16/19 20:59 09/22/19 21:39 Carbidopa/Levodopa (Sinemet 25/100) 1 tab THREE TIMES A DAY ORAL 09/17/19 09:00 10/17/19 08:59 09/23/19 09:35 Ceftriaxone Sodium 1 gm/ Dextrose 55 ml @ 110 mls/hr Q24H IVPB 09/17/19 21:00 09/24/19 20:59 09/22/19 21:43 Clonidine HCl (Catapres Tab) 0.1 mg Q2H PRN ORAL For High Blood Pressure 09/21/19 09:15 12/20/19 09:14 Dextrose (Dextrose 50%) 25 ml Q30M PRN IV Hypoglycemia 09/16/19 23:00 12/15/19 22:59 Dextrose (Dextrose 50%) 50 ml Q30M PRN IV Hypoglycemia 09/16/19 23:00 12/15/19 22:59 Diltiazem HCl (Cardizem) 30 mg BID ORAL 09/21/19 09:15 10/21/19 09:14 09/23/19 09:34 Docusate Sodium (Colace) 100 mg THREE TIMES A DAY ORAL 09/17/19 09:00 10/17/19 08:59 09/23/19 09:34 Escitalopram Oxalate (Lexapro) 10 mg DAILY ORAL 09/17/19 09:00 10/17/19 08:59 09/23/19 09:34 Furosemide (Lasix) 40 mg EVERY 12 HOURS IV 09/20/19 21:00 10/20/19 20:59 09/23/19 09:34 Insulin Aspart (NovoLOG) BEFORE MEALS AND HS SUBQ 09/17/19 06:30 12/16/19 06:29 09/23/19 05:58 Lorazepam (Ativan) 1 mg Q6H PRN ORAL For Anxiety 09/19/19 01:00 09/26/19 00:59 Mirtazapine (Remeron) 7.5 mg BEDTIME PRN ORAL INSOMNIA 09/19/19 01:00 12/18/19 00:59 Nateglinide (Starlix) 120 mg THREE TIMES A DAY ORAL 09/20/19 13:00 10/17/19 08:59 09/23/19 09:34 Pantoprazole (Protonix) 40 mg EVERY 12 HOURS ORAL 09/17/19 09:00 10/17/19 08:59 09/23/19 09:35 Assessment/Plan Assessment/Plan IMPRESSION: 1. Hypoxemia. Suspect pulm edema 2. Diabetes mellitus. 3. Decubitus ulcer, sacrum. 4. UTI. 5. Hypertension. 6. Hyperlipidemia. DISCUSSION: Will continue to diurese Is I/O negatuive COVID 19 pcr x1 is negative Continue O2 Abx for UTI Negative venous duplex lower extremities Valery Lee Omar Syed MD Sep 23, 2019 10:29
[2019-09-23 12:00] VITALS: BP 184/87
--- NOTE | 2019-09-23 12:00 | Cardiac Electrophysiology PN ---
Assessment/Plan Status Narrative 1. Patchy densities and ground-glass opacities throughout right greater than left, concerning for an infectious/inflammatory process and/or pulmonary edema. 2. Small bilateral pleural effusions. 3. No pulmonary embolus identified. 4. Mild prominence of the pulmonary artery is suggestive of pulmonary arterial hypertension. Assessment/Plan 1. Hypertension on Lasix 40 iv bid, Cardizem 30 bid and prn Clonidine 2. Troponin leak. First 2 troponins were negative. 3rd troponin now mildly elevated that could be due to renal failure/ demand ischemia. Repeat troponin lower at 0.4. Echo EF 65% 3. Fever and UTI on iv Abx. Ruled out for COVID. 4. Diabetes. 5. Contracted gallbladder, packed with stones by Abd US. FU GI 6. Respiratory failure, COPD and pulmonary HTN. Chest CT showed no PE. On Lasix 4o iv bid 7. Hyperlipidemia, on Lipitor. PATRICK RN and Dr Alonzo Subjective Subjective On iv Abx. On 14 liter Face Mask and 55% Fio2 Chest CT no PE. BNP > 57859. On iv Lasix. BP better with Cardizem. Objective Last 24 Hour Vital Signs Date Time Temp Pulse Resp B/P (MAP) Pulse Ox O2 Delivery O2 Flow Rate FiO2 09/23/19 11:48 184/87 09/23/19 09:34 71 168/83 09/23/19 09:00 Venturi Mask 14.0 09/23/19 08:00 96.6 71 18 168/83 (111) 96 09/23/19 08:00 103 09/23/19 04:00 93 09/23/19 04:00 98.1 89 18 138/74 (95) 98 09/23/19 00:00 84 09/23/19 00:00 97.0 89 19 140/78 (98) 98 89 09/22/19 21:29 Venturi Mask 14.0 09/22/19 20:00 78 09/22/19 20:00 99.0 81 18 140/85 (103) 95 09/22/19 17:42 91 132/83 09/22/19 16:00 97.6 91 18 132/83 (99) 97 09/22/19 16:00 91 09/22/19 12:00 90 09/22/19 12:00 98.1 87 18 152/89 (110) 97 Intake and Output 09/22/19 09/23/19 19:00 07:00 Output Total 250 ml Balance -250 ml Output Urine Total 250 ml # Bowel Movements 1 1 Laboratory Tests Test 09/23/19 08:45 White Blood Count 12.8 K/UL (4.8-10.8) H Red Blood Count 3.24 M/UL (4.20-5.40) L Hemoglobin 9.9 G/DL (12.0-16.0) L Hematocrit 28.3 % (37.0-47.0) L Mean Corpuscular Volume 87 FL (80-99) Mean Corpuscular Hemoglobin 30.4 PG (27.0-31.0) Mean Corpuscular Hemoglobin Concent 34.8 G/DL (32.0-36.0) Red Cell Distribution Width 11.1 % (11.6-14.8) L Platelet Count 442 K/UL (150-450) Mean Platelet Volume 4.5 FL (6.5-10.1) L Neutrophils (%) (Auto) 78.6 % (45.0-75.0) H Lymphocytes (%) (Auto) 11.5 % (20.0-45.0) L Monocytes (%) (Auto) 9.2 % (1.0-10.0) Eosinophils (%) (Auto) 0.4 % (0.0-3.0) Basophils (%) (Auto) 0.4 % (0.0-2.0) Sodium Level 143 MMOL/L (136-145) Potassium Level 3.7 MMOL/L (3.5-5.1) Chloride Level 102 MMOL/L (98-107) Carbon Dioxide Level 32 MMOL/L (21-32) Anion Gap 9 mmol/L (5-15) Blood Urea Nitrogen 36 mg/dL (7-18) H Creatinine 1.5 MG/DL (0.55-1.30) H Estimat Glomerular Filtration Rate 34.5 mL/min (>60) Glucose Level 427 MG/DL (74-106) H Calcium Level 8.9 MG/DL (8.5-10.1) Phosphorus Level 3.3 MG/DL (2.5-4.9) Magnesium Level 2.3 MG/DL (1.8-2.4) Total Bilirubin 0.2 MG/DL (0.2-1.0) Aspartate Amino Transf (AST/SGOT) 25 U/L (15-37) Alanine Aminotransferase (ALT/SGPT) 25 U/L (12-78) Alkaline Phosphatase 56 U/L (46-116) C-Reactive Protein, Quantitative 3.2 mg/dL (0.00-0.90) H Pro-B-Type Natriuretic Peptide 6429 pg/mL (0-125) H Total Protein 7.7 G/DL (6.4-8.2) Albumin 2.8 G/DL (3.4-5.0) L Globulin 4.9 g/dL Albumin/Globulin Ratio 0.6 (1.0-2.7) L Objective HEAD AND NECK: No JVD. LUNGS: Clear. CARDIOVASCULAR: Shows regular S1 and S2 with no gallop. ABDOMEN: Soft. EXTREMITIES: No pitting edema. Noe Galdamez MD Sep 23, 2019 12:00
--- NOTE | 2019-09-23 12:20 | Nephrology Progress Note ---
Assessment/Plan Problem List: (1) MER (acute kidney injury) (2) Dehydration (3) Type 2 diabetes mellitus (4) Anemia (5) UTI (urinary tract infection) Assessment Acute renal failure, most likely dehydration Will watch for underlying chronic kidney disease. Anemia, etiology to be identified Toxic metabolic encephalopathy on presentation Diabetes mellitus [id number] with hemoglobin A1c of 8.9 History of COPD History of pulmonary hypertension History of UTI, evidence of UTI on this admission Patient currently full code however on previous admission was DNR Plan September 22: Serum creatinine slightly higher to 1.5 today. Remains full code and remains on Venturi mask. Continue per cardiology management. September 21: Renal parameters stable. Continue per cardiology management. Remains full code and on Venturi mask. Will continue to monitor electrolytes and renal parameters. September 20: Discussed with Dr. Galdamez: Serum creatinine down to 1.3. Troponin I went up. Cardizem started for blood pressure. Patient remains on nonrebreather mask. Continue current management. Previously: Serum creatinine gonsalo to 1.6. This morning's blood sugar 455. White blood cells gonsalo to over 17,000. Continue to treat underlying infection. Continue per ID and pulmonary. Avoid nephrotoxic's. Continue to monitor renal parameters. Stop IV hydration. 1 dose of Lasix IV and 1 dose of potassium chloride p.o. ordered. Defer management of the underlying pulmonary condition to manager flight. Per orders. Monitor renal parameters Monitor electrolytes Keep the blood pressure and blood sugar in check Urine studies Antibiotics as needed Per consultants Subjective ROS Limited/Unobtainable: No Constitutional: Reports: malaise, weakness Objective Objective Last 24 Hour Vital Signs Date Time Temp Pulse Resp B/P (MAP) Pulse Ox O2 Delivery O2 Flow Rate FiO2 09/23/19 11:48 184/87 09/23/19 09:34 71 168/83 09/23/19 09:00 Venturi Mask 14.0 09/23/19 08:00 96.6 71 18 168/83 (111) 96 09/23/19 08:00 103 09/23/19 04:00 93 09/23/19 04:00 98.1 89 18 138/74 (95) 98 09/23/19 00:00 84 09/23/19 00:00 97.0 89 19 140/78 (98) 98 89 09/22/19 21:29 Venturi Mask 14.0 09/22/19 20:00 78 09/22/19 20:00 99.0 81 18 140/85 (103) 95 09/22/19 17:42 91 132/83 09/22/19 16:00 97.6 91 18 132/83 (99) 97 09/22/19 16:00 91 Intake and Output 09/22/19 09/23/19 19:00 07:00 Output Total 250 ml Balance -250 ml Output Urine Total 250 ml # Bowel Movements 1 1 Laboratory Tests 09/23/19 08:45: White Blood Count 12.8H, Red Blood Count 3.24L, Hemoglobin 9.9L, Hematocrit 28.3L, Mean Corpuscular Volume 87, Mean Corpuscular Hemoglobin 30.4, Mean Corpuscular Hemoglobin Concent 34.8, Red Cell Distribution Width 11.1L, Platelet Count 442, Mean Platelet Volume 4.5L, Neutrophils (%) (Auto) 78.6H, Lymphocytes (%) (Auto) 11.5L, Monocytes (%) (Auto) 9.2, Eosinophils (%) (Auto) 0.4, Basophils (%) (Auto) 0.4, Sodium Level 143, Potassium Level 3.7, Chloride Level 102, Carbon Dioxide Level 32, Anion Gap 9, Blood Urea Nitrogen 36H, Creatinine 1.5H, Estimat Glomerular Filtration Rate 34.5, Glucose Level 427H, Calcium Level 8.9, Phosphorus Level 3.3, Magnesium Level 2.3, Total Bilirubin 0.2, Aspartate Amino Transf (AST/SGOT) 25, Alanine Aminotransferase (ALT/SGPT) 25, Alkaline Phosphatase 56, C-Reactive Protein, Quantitative 3.2H, Pro-B-Type Natriuretic Peptide 6429H, Total Protein 7.7, Albumin 2.8L, Globulin 4.9, Albumin/Globulin Ratio 0.6L Height (Feet): 5 Height (Inches): 5.00 Weight (Pounds): 130 General Appearance: no apparent distress - No change EENT: other - On Venturi mask Cardiovascular: tachycardia, arrhythmia Respiratory/Chest: decreased breath sounds Abdomen: distended José Miguel Calvert MD Sep 23, 2019 12:20
--- NOTE | 2019-09-23 14:25 | Infectious Diseases Prog Note ---
Assessment/Plan Assessment/Plan IMPRESSION: Sepsis resolving Pneumonia E. coli UTI. Diabetes mellitus with hyperglycemia, COPD, Hypertension, pulmonary hypertension, Diastolic CHF, Parkinson disease, anemia, major depression. RECOMMENDATION: We will continue ceftriaxone X 1 day F/U CBC Subjective ROS Limited/Unobtainable: No Constitutional: Reports: no symptoms Respiratory: Reports: no symptoms Cardiovascular: Reports: no symptoms Gastrointestinal/Abdominal: Reports: no symptoms Genitourinary: Reports: no symptoms Allergies: Coded Allergies: No Known Allergies (Unverified , 11/08/15) Objective Vital Signs Last 24 Hour Vital Signs Date Time Temp Pulse Resp B/P (MAP) Pulse Ox O2 Delivery O2 Flow Rate FiO2 09/23/19 12:00 97.5 86 20 184/87 (119) 96 09/23/19 11:48 184/87 09/23/19 09:34 71 168/83 09/23/19 09:00 Venturi Mask 14.0 09/23/19 08:00 96.6 71 18 168/83 (111) 96 09/23/19 08:00 103 09/23/19 04:00 93 09/23/19 04:00 98.1 89 18 138/74 (95) 98 09/23/19 00:00 84 09/23/19 00:00 97.0 89 19 140/78 (98) 98 89 09/22/19 21:29 Venturi Mask 14.0 09/22/19 20:00 78 09/22/19 20:00 99.0 81 18 140/85 (103) 95 09/22/19 17:42 91 132/83 09/22/19 16:00 97.6 91 18 132/83 (99) 97 09/22/19 16:00 91 Height (Feet): 5 Height (Inches): 5.00 Weight (Pounds): 130 General Appearance: no acute distress HEENT: mucous membranes moist Respiratory/Chest: lungs clear, other - oxygen by mask Cardiovascular: normal rate Abdomen: soft, non tender Extremities: no edema Neurologic/Psychiatric: alert, responsive, other - tremor Laboratory Tests Test 09/23/19 08:45 White Blood Count 12.8 K/UL (4.8-10.8) H Red Blood Count 3.24 M/UL (4.20-5.40) L Hemoglobin 9.9 G/DL (12.0-16.0) L Hematocrit 28.3 % (37.0-47.0) L Mean Corpuscular Volume 87 FL (80-99) Mean Corpuscular Hemoglobin 30.4 PG (27.0-31.0) Mean Corpuscular Hemoglobin Concent 34.8 G/DL (32.0-36.0) Red Cell Distribution Width 11.1 % (11.6-14.8) L Platelet Count 442 K/UL (150-450) Mean Platelet Volume 4.5 FL (6.5-10.1) L Neutrophils (%) (Auto) 78.6 % (45.0-75.0) H Lymphocytes (%) (Auto) 11.5 % (20.0-45.0) L Monocytes (%) (Auto) 9.2 % (1.0-10.0) Eosinophils (%) (Auto) 0.4 % (0.0-3.0) Basophils (%) (Auto) 0.4 % (0.0-2.0) Sodium Level 143 MMOL/L (136-145) Potassium Level 3.7 MMOL/L (3.5-5.1) Chloride Level 102 MMOL/L (98-107) Carbon Dioxide Level 32 MMOL/L (21-32) Anion Gap 9 mmol/L (5-15) Blood Urea Nitrogen 36 mg/dL (7-18) H Creatinine 1.5 MG/DL (0.55-1.30) H Estimat Glomerular Filtration Rate 34.5 mL/min (>60) Glucose Level 427 MG/DL (74-106) H Calcium Level 8.9 MG/DL (8.5-10.1) Phosphorus Level 3.3 MG/DL (2.5-4.9) Magnesium Level 2.3 MG/DL (1.8-2.4) Total Bilirubin 0.2 MG/DL (0.2-1.0) Aspartate Amino Transf (AST/SGOT) 25 U/L (15-37) Alanine Aminotransferase (ALT/SGPT) 25 U/L (12-78) Alkaline Phosphatase 56 U/L (46-116) C-Reactive Protein, Quantitative 3.2 mg/dL (0.00-0.90) H Pro-B-Type Natriuretic Peptide 6429 pg/mL (0-125) H Total Protein 7.7 G/DL (6.4-8.2) Albumin 2.8 G/DL (3.4-5.0) L Globulin 4.9 g/dL Albumin/Globulin Ratio 0.6 (1.0-2.7) L Current Medications Medications (Trade) Dose Ordered Sig/Tenzin Route PRN Reason Start Time Stop Time Status Last Admin Dose Admin Acetaminophen (Tylenol) 650 mg Q4H PRN ORAL Temp >100.5 09/16/19 23:00 10/16/19 22:59 Albuterol/ Ipratropium (Albuterol/ Ipratropium) 3 ml Q4H PRN HHN Shortness of Breath 09/19/19 16:30 09/24/19 16:29 09/20/19 09:24 Atorvastatin Calcium (Lipitor) 10 mg BEDTIME ORAL 09/17/19 21:00 12/16/19 20:59 09/22/19 21:39 Carbidopa/Levodopa (Sinemet 25/100) 1 tab THREE TIMES A DAY ORAL 09/17/19 09:00 10/17/19 08:59 09/23/19 12:54 Ceftriaxone Sodium 1 gm/ Dextrose 55 ml @ 110 mls/hr Q24H IVPB 09/17/19 21:00 09/24/19 20:59 09/22/19 21:43 Clonidine HCl (Catapres Tab) 0.1 mg Q2H PRN ORAL For High Blood Pressure 09/21/19 09:15 12/20/19 09:14 09/23/19 11:48 Dextrose (Dextrose 50%) 25 ml Q30M PRN IV Hypoglycemia 09/16/19 23:00 12/15/19 22:59 Dextrose (Dextrose 50%) 50 ml Q30M PRN IV Hypoglycemia 09/16/19 23:00 12/15/19 22:59 Diltiazem HCl (Cardizem) 30 mg BID ORAL 09/21/19 09:15 10/21/19 09:14 09/23/19 09:34 Docusate Sodium (Colace) 100 mg THREE TIMES A DAY ORAL 09/17/19 09:00 10/17/19 08:59 09/23/19 12:54 Escitalopram Oxalate (Lexapro) 10 mg DAILY ORAL 09/17/19 09:00 10/17/19 08:59 09/23/19 09:34 Furosemide (Lasix) 40 mg EVERY 12 HOURS IV 09/20/19 21:00 10/20/19 20:59 09/23/19 09:34 Insulin Aspart (NovoLOG) BEFORE MEALS AND HS SUBQ 09/17/19 06:30 12/16/19 06:29 09/23/19 12:14 Lorazepam (Ativan) 1 mg Q6H PRN ORAL For Anxiety 09/19/19 01:00 09/26/19 00:59 Mirtazapine (Remeron) 7.5 mg BEDTIME PRN ORAL INSOMNIA 09/19/19 01:00 12/18/19 00:59 Nateglinide (Starlix) 120 mg THREE TIMES A DAY ORAL 09/20/19 13:00 10/17/19 08:59 09/23/19 12:54 Pantoprazole (Protonix) 40 mg EVERY 12 HOURS ORAL 09/17/19 09:00 10/17/19 08:59 09/23/19 09:35 Rogelio Martinez MD Sep 23, 2019 14:25
[2019-09-23 16:00] VITALS: BP 139/76
--- NOTE | 2019-09-23 16:08 | Hematology/Onc Progress Note ---
Assessment/Plan Assessment/Plan Assessment and Recs: # Anemia of iron deficiency -- hgb remains low, anemia panel reviewed, ferritin in prior was 20 --> consider iron as needed, if low will order ferritin --> cea is 4.9 --> no hemolysis is seen --> r/o gi bleed, gi is on board --> hgb 9.5->9.9 # Leukocytosis with Sepsis likely due to uti --> has now improved --> abx: ceftriaxone --> as per Dr. Martinez --> urine cx positive --> wbc 12-->17->13 --> 09/20 cxr bilat infiltrates # Respiratory failure, r/o chf v copd --> diuresis started prn # Ryan on admission --> per renal on ivf --> per Dr. Calvert # Elevated lactic acid level --> sp abx lecquin # Type 2 diabetes mellitus --> acucchecks qac and qhs --> iss, consider endo # Stage I decubitus ulcer sacrum # Dvt ppx scds Appreciate consultation and dw Rn Subjective Constitutional: Denies: no symptoms, chills, fever, malaise, weakness, other HEENT: Denies: no symptoms, eye pain, blurred vision, tearing, double vision, ear pain, ear discharge, nose pain, nose congestion, throat pain, throat swelling, mouth pain, mouth swelling, other Cardiovascular: Denies: no symptoms, chest pain, edema, irregular heart rate, lightheadedness, palpitations, syncope, other Respiratory: Denies: no symptoms, cough, shortness of breath, SOB with excertion, SOB at rest, sputum, wheezing, other Gastrointestinal/Abdominal: Denies: no symptoms, abdomen distended, abdominal pain, black stools, tarry stools, blood in stool, constipated, diarrhea, difficulty swallowing, nausea, poor appetite, poor fluid intake, rectal bleeding , vomiting, other Neurologic/Psychiatric: Denies: no symptoms, anxiety, depressed, emotional problems, headache, numbness, paresthesia, pre-existing deficit, seizure, tingling, tremors, weakness, other Hematologic/Lymphatic: Denies: no symptoms, anemia, easy bleeding, easy bruising, adenopathy, other Allergies: Coded Allergies: No Known Allergies (Unverified , 11/08/15) Subjective 09/18 tele, no acute events, nc, labs pending 09/19 labs are reviewed, no bleeding, wbc 17, on abx on diurestic, ct noted 09/20 tachy, nrb 14L, iv abx, afebrile, labs pending 09/21 cxr w/ bilat infiltrates, vmask, cftx, no distress 09/22 remains on venturi mask, labs noted, ctx per id Objective Objective Current Medications Medications (Trade) Dose Ordered Sig/Tenzin Route PRN Reason Start Time Stop Time Status Last Admin Dose Admin Acetaminophen (Tylenol) 650 mg Q4H PRN ORAL Temp >100.5 09/16/19 23:00 10/16/19 22:59 Albuterol/ Ipratropium (Albuterol/ Ipratropium) 3 ml Q4H PRN HHN Shortness of Breath 09/19/19 16:30 09/24/19 16:29 09/20/19 09:24 Atorvastatin Calcium (Lipitor) 10 mg BEDTIME ORAL 09/17/19 21:00 12/16/19 20:59 09/22/19 21:39 Carbidopa/Levodopa (Sinemet 25/100) 1 tab THREE TIMES A DAY ORAL 09/17/19 09:00 10/17/19 08:59 09/23/19 12:54 Ceftriaxone Sodium 1 gm/ Dextrose 55 ml @ 110 mls/hr Q24H IVPB 09/17/19 21:00 09/24/19 20:59 09/22/19 21:43 Clonidine HCl (Catapres Tab) 0.1 mg Q2H PRN ORAL For High Blood Pressure 09/21/19 09:15 12/20/19 09:14 09/23/19 11:48 Dextrose (Dextrose 50%) 25 ml Q30M PRN IV Hypoglycemia 09/16/19 23:00 12/15/19 22:59 Dextrose (Dextrose 50%) 50 ml Q30M PRN IV Hypoglycemia 09/16/19 23:00 12/15/19 22:59 Diltiazem HCl (Cardizem) 30 mg BID ORAL 09/21/19 09:15 10/21/19 09:14 09/23/19 09:34 Docusate Sodium (Colace) 100 mg THREE TIMES A DAY ORAL 09/17/19 09:00 10/17/19 08:59 09/23/19 12:54 Escitalopram Oxalate (Lexapro) 10 mg DAILY ORAL 09/17/19 09:00 10/17/19 08:59 09/23/19 09:34 Furosemide (Lasix) 40 mg EVERY 12 HOURS IV 09/20/19 21:00 10/20/19 20:59 09/23/19 09:34 Insulin Aspart (NovoLOG) BEFORE MEALS AND HS SUBQ 09/17/19 06:30 12/16/19 06:29 09/23/19 12:14 Lorazepam (Ativan) 1 mg Q6H PRN ORAL For Anxiety 09/19/19 01:00 09/26/19 00:59 Mirtazapine (Remeron) 7.5 mg BEDTIME PRN ORAL INSOMNIA 09/19/19 01:00 12/18/19 00:59 Nateglinide (Starlix) 120 mg THREE TIMES A DAY ORAL 09/20/19 13:00 10/17/19 08:59 09/23/19 12:54 Pantoprazole (Protonix) 40 mg EVERY 12 HOURS ORAL 09/17/19 09:00 10/17/19 08:59 09/23/19 09:35 Last 24 Hour Vital Signs Date Time Temp Pulse Resp B/P (MAP) Pulse Ox O2 Delivery O2 Flow Rate FiO2 09/23/19 12:00 97.5 86 20 184/87 (119) 96 09/23/19 12:00 84 09/23/19 11:48 184/87 09/23/19 09:34 71 168/83 09/23/19 09:00 Venturi Mask 14.0 09/23/19 08:00 96.6 71 18 168/83 (111) 96 09/23/19 08:00 103 09/23/19 04:00 93 09/23/19 04:00 98.1 89 18 138/74 (95) 98 09/23/19 00:00 84 09/23/19 00:00 97.0 89 19 140/78 (98) 98 89 09/22/19 21:29 Venturi Mask 14.0 09/22/19 20:00 78 09/22/19 20:00 99.0 81 18 140/85 (103) 95 09/22/19 17:42 91 132/83 09/22/19 16:00 97.6 91 18 132/83 (99) 97 09/22/19 16:00 91 09/22/19 12:00 90 09/22/19 12:00 98.1 87 18 152/89 (110) 97 09/22/19 09:00 Venturi Mask 14.0 09/22/19 08:21 109 160/84 09/22/19 08:00 113 09/22/19 08:00 97.9 113 18 157/98 (117) 98 09/22/19 04:00 97.5 74 18 119/78 (92) 97 09/22/19 04:00 101 09/22/19 00:00 97.0 80 18 114/83 (93) 98 09/22/19 00:00 92 09/21/19 21:00 Venturi Mask 14.0 09/21/19 20:00 77 09/21/19 20:00 96.9 81 18 122/93 (103) 98 09/21/19 17:13 102 157/94 Intake and Output 09/22/19 09/23/19 19:00 07:00 Output Total 250 ml Balance -250 ml Output Urine Total 250 ml # Bowel Movements 1 1 Labs Test 09/21/19 06:05 09/22/19 06:02 09/23/19 08:45 White Blood Count 14.9 K/UL (4.8-10.8) 11.6 K/UL (4.8-10.8) 12.8 K/UL (4.8-10.8) Red Blood Count 3.03 M/UL (4.20-5.40) 3.34 M/UL (4.20-5.40) 3.24 M/UL (4.20-5.40) Hemoglobin 9.3 G/DL (12.0-16.0) 10.0 G/DL (12.0-16.0) 9.9 G/DL (12.0-16.0) Hematocrit 26.5 % (37.0-47.0) 29.4 % (37.0-47.0) 28.3 % (37.0-47.0) Mean Corpuscular Volume 88 FL (80-99) 88 FL (80-99) 87 FL (80-99) Mean Corpuscular Hemoglobin 30.7 PG (27.0-31.0) 30.0 PG (27.0-31.0) 30.4 PG (27.0-31.0) Mean Corpuscular Hemoglobin Concent 35.1 G/DL (32.0-36.0) 34.1 G/DL (32.0-36.0) 34.8 G/DL (32.0-36.0) Red Cell Distribution Width 11.0 % (11.6-14.8) 11.0 % (11.6-14.8) 11.1 % (11.6-14.8) Platelet Count 318 K/UL (150-450) 422 K/UL (150-450) 442 K/UL (150-450) Mean Platelet Volume 5.0 FL (6.5-10.1) 4.7 FL (6.5-10.1) 4.5 FL (6.5-10.1) Neutrophils (%) (Auto) 80.9 % (45.0-75.0) 74.6 % (45.0-75.0) 78.6 % (45.0-75.0) Lymphocytes (%) (Auto) 11.4 % (20.0-45.0) 16.9 % (20.0-45.0) 11.5 % (20.0-45.0) Monocytes (%) (Auto) 6.1 % (1.0-10.0) 5.9 % (1.0-10.0) 9.2 % (1.0-10.0) Eosinophils (%) (Auto) 0.8 % (0.0-3.0) 1.9 % (0.0-3.0) 0.4 % (0.0-3.0) Basophils (%) (Auto) 0.8 % (0.0-2.0) 0.7 % (0.0-2.0) 0.4 % (0.0-2.0) D-Dimer 3.36 mg/L FEU (0.00-0.49) Sodium Level 136 MMOL/L (136-145) 142 MMOL/L (136-145) 143 MMOL/L (136-145) Potassium Level 4.3 MMOL/L (3.5-5.1) 3.7 MMOL/L (3.5-5.1) 3.7 MMOL/L (3.5-5.1) Chloride Level 99 MMOL/L (98-107) 101 MMOL/L (98-107) 102 MMOL/L (98-107) Carbon Dioxide Level 26 MMOL/L (21-32) 27 MMOL/L (21-32) 32 MMOL/L (21-32) Anion Gap 12 mmol/L (5-15) 14 mmol/L (5-15) 9 mmol/L (5-15) Blood Urea Nitrogen 27 mg/dL (7-18) 34 mg/dL (7-18) 36 mg/dL (7-18) Creatinine 1.3 MG/DL (0.55-1.30) 1.4 MG/DL (0.55-1.30) 1.5 MG/DL (0.55-1.30) Estimat Glomerular Filtration Rate 40.7 mL/min (>60) 37.4 mL/min (>60) 34.5 mL/min (>60) Glucose Level 370 MG/DL (74-106) 377 MG/DL (74-106) 427 MG/DL (74-106) Uric Acid 7.1 MG/DL (2.6-7.2) Calcium Level 9.1 MG/DL (8.5-10.1) 9.2 MG/DL (8.5-10.1) 8.9 MG/DL (8.5-10.1) Phosphorus Level 3.3 MG/DL (2.5-4.9) 3.9 MG/DL (2.5-4.9) 3.3 MG/DL (2.5-4.9) Magnesium Level 2.1 MG/DL (1.8-2.4) 2.1 MG/DL (1.8-2.4) 2.3 MG/DL (1.8-2.4) Total Bilirubin 0.5 MG/DL (0.2-1.0) 0.4 MG/DL (0.2-1.0) 0.2 MG/DL (0.2-1.0) Aspartate Amino Transf (AST/SGOT) 35 U/L (15-37) 28 U/L (15-37) 25 U/L (15-37) Alanine Aminotransferase (ALT/SGPT) 23 U/L (12-78) 20 U/L (12-78) 25 U/L (12-78) Alkaline Phosphatase 55 U/L (46-116) 53 U/L (46-116) 56 U/L (46-116) Lactate Dehydrogenase 308 U/L (81-234) Total Creatine Kinase 67 U/L (26-308) Troponin I 0.949 ng/mL (0.000-0.056) 0.413 ng/mL (0.000-0.056) C-Reactive Protein, Quantitative 9.4 mg/dL (0.00-0.90) 5.9 mg/dL (0.00-0.90) 3.2 mg/dL (0.00-0.90) Pro-B-Type Natriuretic Peptide 58184 pg/mL (0-125) 80019 pg/mL (0-125) 6429 pg/mL (0-125) Total Protein 7.5 G/DL (6.4-8.2) 7.9 G/DL (6.4-8.2) 7.7 G/DL (6.4-8.2) Albumin 2.5 G/DL (3.4-5.0) 2.7 G/DL (3.4-5.0) 2.8 G/DL (3.4-5.0) Globulin 5.0 g/dL 5.2 g/dL 4.9 g/dL Albumin/Globulin Ratio 0.5 (1.0-2.7) 0.5 (1.0-2.7) 0.6 (1.0-2.7) Height (Feet): 5 Height (Inches): 5.00 Weight (Pounds): 130 Objective Physical Exam Vitals: reviewed General: alert, non-toxic, thin, other - Frail, Chronically Ill Head: normocephalic, atraumatic Heent: bilateral eye normal inspection, bilateral eye PERRl Respiratory: lungs clear, normal breath sounds, vmask++ Cardiovascular: regular rate, rhythm, no edema Gi: non tender, soft, decreased bowel sounds Gu: no CVA tenderness Msk: no calf tenderness, + Atrophy Neuro: alert, sensory intact, w motor weakness Psychiatric: mood/affect normal Skin: ++ Danie Jackson MD Sep 23, 2019 16:08
--- NOTE | 2019-09-23 16:36 | NUR ---
Patient seen for dysphagia tx session, cleared by NEFTALI Patel. Patient received awake, alert, 0x3, agreeable to ST intervention. She had just completed 100% of her breakfast meal, but she verbally complained "I don't like this food" (referring to the puree texture). Patient edentulous but insists that that is not a relevant factor to her P.O. intake. When presented with P>O. trials of 6 oz nectar thick liquids and 4 oz puree solid. While the patient did not present with overt s/s of aspiration, nevertheless, her current CXR findings are positive for bilateral infiltrates. (See below) UPDATES ON CURRENT CXR 09/21/19. Findings: Interim development of bilateral reticular interstitial and airspace infiltrates. Heart size is normal. There is now a small left pleural effusion Impression: Bilateral infiltrates, concerning for pneumonia. Small left pleural effusion VITALS ON VENTURI MASK 14 L: HR: 81 RR: 18 SP02 97% PATIENT CONTINUES TO BE A HIGH RISK FOR SILENT ASPIRATION. PLAN: 1. Recommend continuing current diet consistency with careful mealtime protocol, 2. Please assist Patient with oral hygiene BID, RN aware of Patients oral care needs. 3. MBSS when possible to rule out silent aspiration. [employer] [phone]
[2019-09-23 20:00] VITALS: BP 112/74
--- NOTE | 2019-09-23 22:01 | General Progress Note ---
Assessment/Plan Problem List: (1) Severe sepsis ICD Codes: A41.9 - Sepsis, unspecified organism; R65.20 - Severe sepsis without septic shock SNOMED: 03790801 (2) Constipation ICD Codes: K59.00 - Constipation, unspecified SNOMED: 06053604 (3) Cholelithiasis ICD Codes: K80.20 - Calculus of gallbladder without cholecystitis without obstruction SNOMED: 326062272 (4) Pulmonary hypertension ICD Codes: I27.20 - Pulmonary hypertension, unspecified SNOMED: 29412677 (5) Dehydration ICD Codes: E86.0 - Dehydration SNOMED: 30692901 (6) UTI (urinary tract infection) ICD Codes: N39.0 - Urinary tract infection, site not specified SNOMED: 45923197 (7) Encephalopathy ICD Codes: G93.40 - Encephalopathy, unspecified SNOMED: 40617355, 474012631 (8) Anemia ICD Codes: D64.9 - Anemia, unspecified SNOMED: 908733106 (9) Hyperlipidemia associated with type 2 diabetes mellitus ICD Codes: E11.69 - Type 2 diabetes mellitus with other specified complication ; E78.5 - Hyperlipidemia, unspecified SNOMED: 479754074, 375379928730 (10) Type 2 diabetes mellitus ICD Codes: E11.9 - Type 2 diabetes mellitus without complications SNOMED: 22153111, 939671512 Status: progressing Assessment/Plan: s/p on face mask needs clearance from pulmonary for dc s/p svt azotemia gallstones copd no wheezing resp insuff Subjective ROS Limited/Unobtainable: Yes Allergies: Coded Allergies: No Known Allergies (Unverified , 11/08/15) Objective Last 24 Hour Vital Signs Date Time Temp Pulse Resp B/P (MAP) Pulse Ox O2 Delivery O2 Flow Rate FiO2 09/23/19 18:06 88 139/76 09/23/19 16:00 97.7 88 18 139/76 (97) 98 09/23/19 16:00 85 09/23/19 12:00 97.5 86 20 184/87 (119) 96 09/23/19 12:00 84 09/23/19 11:48 184/87 09/23/19 09:34 71 168/83 09/23/19 09:00 Venturi Mask 14.0 09/23/19 08:00 96.6 71 18 168/83 (111) 96 09/23/19 08:00 103 09/23/19 04:00 93 09/23/19 04:00 98.1 89 18 138/74 (95) 98 09/23/19 00:00 84 09/23/19 00:00 97.0 89 19 140/78 (98) 98 89 Intake and Output 09/22/19 09/23/19 19:00 07:00 Output Total 250 ml Balance -250 ml Output Urine Total 250 ml # Bowel Movements 1 1 Laboratory Tests 09/23/19 08:45: White Blood Count 12.8H, Red Blood Count 3.24L, Hemoglobin 9.9L, Hematocrit 28.3L, Mean Corpuscular Volume 87, Mean Corpuscular Hemoglobin 30.4, Mean Corpuscular Hemoglobin Concent 34.8, Red Cell Distribution Width 11.1L, Platelet Count 442, Mean Platelet Volume 4.5L, Neutrophils (%) (Auto) 78.6H, Lymphocytes (%) (Auto) 11.5L, Monocytes (%) (Auto) 9.2, Eosinophils (%) (Auto) 0.4, Basophils (%) (Auto) 0.4, Sodium Level 143, Potassium Level 3.7, Chloride Level 102, Carbon Dioxide Level 32, Anion Gap 9, Blood Urea Nitrogen 36H, Creatinine 1.5H, Estimat Glomerular Filtration Rate 34.5, Glucose Level 427H, Calcium Level 8.9, Phosphorus Level 3.3, Magnesium Level 2.3, Total Bilirubin 0.2, Aspartate Amino Transf (AST/SGOT) 25, Alanine Aminotransferase (ALT/SGPT) 25, Alkaline Phosphatase 56, C-Reactive Protein, Quantitative 3.2H, Pro-B-Type Natriuretic Peptide 6429H, Total Protein 7.7, Albumin 2.8L, Globulin 4.9, Albumin/Globulin Ratio 0.6L Height (Feet): 5 Height (Inches): 5.00 Weight (Pounds): 130 Amelie Rios MD Sep 23, 2019 22:01
[2019-09-23] MEDS: cefTRIAXone 1 GM in D5W 55 ML IVPB SCH (22:41)
[2019-09-24] VITALS (7 sets, daily range): BP systolic 115–173; BP diastolic 68–98
--- NOTE | 2019-09-24 05:00 | Progress Note ---
DATE: 09/23/2019 SUBJECTIVE: The patient is in bed. Has some anxiety. Able to answer some questions. Stable at baseline. No behavior issues noted. MENTAL STATUS EXAM: Show alert and oriented x self, place, situation. Mood is anxious. Affect is constricted. Congruent mood. Thought process is concrete. Thought content, no suicidal or homicidal ideation. ASSESSMENT: 1. Anxiety disorder. 2. Depression. PLAN: 1. Continue the Lexapro 10 mg in the morning. 2. Remeron. 3. Ativan as needed. 4. Continue to follow and readjust the medications. Stephanie Ybarra M.D. DR: FLAKO JOB#: [id number] CC: LAVELL
[2019-09-24] MEDS: NovoLOG Insulin Flexpen SUBQ SCH ×4 (05:54→20:44)
--- NOTE | 2019-09-24 07:15 | NUR ---
HAND-OFF: Report given to NEFTALI Diaz. Plan of care endorsed.
--- NOTE | 2019-09-24 08:00 | NUR ---
NURSE NOTES: Pt asleep in bed, breathing easily on venturi mask 55% @ 12 lpm. Vital signs stable with SR @ 87 on monitor. IV access LAC, flushed with 10 ml NS and locked. Purewick in place. Heels protected with optifoam. Bed left in low position, side rails up x 3 and call light left near pt's hand.
--- NOTE | 2019-09-24 08:01 | Hematology/Onc Progress Note ---
Assessment/Plan Assessment/Plan Assessment and Recs: # Anemia of iron deficiency -- hgb remains low, anemia panel reviewed, ferritin in prior was 20 --> consider iron as needed, if low will order ferritin --> cea is 4.9 --> no hemolysis is seen --> r/o gi bleed, gi is on board --> hgb 9.5->9.9 # Leukocytosis with Sepsis likely due to uti --> has now improved --> abx: ceftriaxone --> as per Dr. Martinez --> urine cx positive --> wbc 12-->17->13 --> 09/20 cxr bilat infiltrates # Respiratory failure, r/o chf v copd --> diuresis started prn # Ryan on admission --> per renal on ivf --> per Dr. Calvert # Elevated lactic acid level --> sp abx lecquin # Type 2 diabetes mellitus --> acucchecks qac and qhs --> iss, consider endo # Stage I decubitus ulcer sacrum # Dvt ppx scds Appreciate consultation and dw Rn Subjective Allergies: Coded Allergies: No Known Allergies (Unverified , 11/08/15) Subjective 09/18 tele, no acute events, nc, labs pending 09/19 labs are reviewed, no bleeding, wbc 17, on abx on diurestic, ct noted 09/20 tachy, nrb 14L, iv abx, afebrile, labs pending 09/21 cxr w/ bilat infiltrates, vmask, cftx, no distress 09/22 remains on venturi mask, labs noted, cftx per id 09/23 no new changes, no distress, meds reviewed Objective Objective Current Medications Medications (Trade) Dose Ordered Sig/Tenzin Route PRN Reason Start Time Stop Time Status Last Admin Dose Admin Acetaminophen (Tylenol) 650 mg Q4H PRN ORAL Temp >100.5 09/16/19 23:00 10/16/19 22:59 Albuterol/ Ipratropium (Albuterol/ Ipratropium) 3 ml Q4H PRN HHN Shortness of Breath 09/19/19 16:30 09/24/19 16:29 09/20/19 09:24 Atorvastatin Calcium (Lipitor) 10 mg BEDTIME ORAL 09/17/19 21:00 9/3/20 20:59 09/23/19 22:41 Carbidopa/Levodopa (Sinemet 25/100) 1 tab THREE TIMES A DAY ORAL 09/17/19 09:00 10/17/19 08:59 09/23/19 18:06 Ceftriaxone Sodium 1 gm/ Dextrose 55 ml @ 110 mls/hr Q24H IVPB 09/17/19 21:00 09/24/19 20:59 09/23/19 22:41 Clonidine HCl (Catapres Tab) 0.1 mg Q2H PRN ORAL For High Blood Pressure 09/21/19 09:15 12/20/19 09:14 09/23/19 11:48 Dextrose (Dextrose 50%) 25 ml Q30M PRN IV Hypoglycemia 09/16/19 23:00 12/15/19 22:59 Dextrose (Dextrose 50%) 50 ml Q30M PRN IV Hypoglycemia 09/16/19 23:00 12/15/19 22:59 Diltiazem HCl (Cardizem) 30 mg BID ORAL 09/21/19 09:15 10/21/19 09:14 09/23/19 18:06 Docusate Sodium (Colace) 100 mg THREE TIMES A DAY ORAL 09/17/19 09:00 10/17/19 08:59 09/23/19 18:06 Escitalopram Oxalate (Lexapro) 10 mg DAILY ORAL 09/17/19 09:00 10/17/19 08:59 09/23/19 09:34 Furosemide (Lasix) 40 mg EVERY 12 HOURS IV 09/20/19 21:00 10/20/19 20:59 09/23/19 22:41 Insulin Aspart (NovoLOG) BEFORE MEALS AND HS SUBQ 09/17/19 06:30 12/16/19 06:29 09/24/19 05:54 Lorazepam (Ativan) 1 mg Q6H PRN ORAL For Anxiety 09/19/19 01:00 09/26/19 00:59 Mirtazapine (Remeron) 7.5 mg BEDTIME PRN ORAL INSOMNIA 09/19/19 01:00 12/18/19 00:59 Nateglinide (Starlix) 120 mg THREE TIMES A DAY ORAL 09/20/19 13:00 10/17/19 08:59 09/23/19 18:06 Pantoprazole (Protonix) 40 mg EVERY 12 HOURS ORAL 09/17/19 09:00 10/17/19 08:59 09/23/19 22:41 Last 24 Hour Vital Signs Date Time Temp Pulse Resp B/P (MAP) Pulse Ox O2 Delivery O2 Flow Rate FiO2 09/24/19 04:00 87 09/24/19 04:00 97.8 87 20 115/76 (89) 96 09/24/19 00:00 97.7 98 20 131/74 (93) 97 09/24/19 00:00 73 09/23/19 21:15 76 16 98 Venturi Mask 14.0 55 09/23/19 21:00 Venturi Mask 14.0 09/23/19 20:00 77 09/23/19 20:00 97.5 98 20 112/74 (87) 98 09/23/19 18:06 88 139/76 09/23/19 16:00 97.7 88 18 139/76 (97) 98 09/23/19 16:00 85 09/23/19 12:00 97.5 86 20 184/87 (119) 96 09/23/19 12:00 84 09/23/19 11:48 184/87 09/23/19 09:34 71 168/83 09/23/19 09:00 Venturi Mask 14.0 09/23/19 08:00 96.6 71 18 168/83 (111) 96 09/23/19 08:00 103 09/23/19 04:00 93 09/23/19 04:00 98.1 89 18 138/74 (95) 98 09/23/19 00:00 84 09/23/19 00:00 97.0 89 19 140/78 (98) 98 89 09/22/19 21:29 Venturi Mask 14.0 09/22/19 20:00 78 09/22/19 20:00 99.0 81 18 140/85 (103) 95 09/22/19 17:42 91 132/83 09/22/19 16:00 97.6 91 18 132/83 (99) 97 09/22/19 16:00 91 09/22/19 12:00 90 09/22/19 12:00 98.1 87 18 152/89 (110) 97 09/22/19 09:00 Venturi Mask 14.0 09/22/19 08:21 109 160/84 09/22/19 08:00 113 09/22/19 08:00 97.9 113 18 157/98 (117) 98 Intake and Output 09/23/19 09/24/19 19:00 07:00 Intake Total 140 ml Output Total 600 ml Balance 140 ml -600 ml Intake Oral 140 ml Output Urine Total 600 ml # Bowel Movements 1 1 Labs Test 09/22/19 06:02 09/23/19 08:45 White Blood Count 11.6 K/UL (4.8-10.8) 12.8 K/UL (4.8-10.8) Red Blood Count 3.34 M/UL (4.20-5.40) 3.24 M/UL (4.20-5.40) Hemoglobin 10.0 G/DL (12.0-16.0) 9.9 G/DL (12.0-16.0) Hematocrit 29.4 % (37.0-47.0) 28.3 % (37.0-47.0) Mean Corpuscular Volume 88 FL (80-99) 87 FL (80-99) Mean Corpuscular Hemoglobin 30.0 PG (27.0-31.0) 30.4 PG (27.0-31.0) Mean Corpuscular Hemoglobin Concent 34.1 G/DL (32.0-36.0) 34.8 G/DL (32.0-36.0) Red Cell Distribution Width 11.0 % (11.6-14.8) 11.1 % (11.6-14.8) Platelet Count 422 K/UL (150-450) 442 K/UL (150-450) Mean Platelet Volume 4.7 FL (6.5-10.1) 4.5 FL (6.5-10.1) Neutrophils (%) (Auto) 74.6 % (45.0-75.0) 78.6 % (45.0-75.0) Lymphocytes (%) (Auto) 16.9 % (20.0-45.0) 11.5 % (20.0-45.0) Monocytes (%) (Auto) 5.9 % (1.0-10.0) 9.2 % (1.0-10.0) Eosinophils (%) (Auto) 1.9 % (0.0-3.0) 0.4 % (0.0-3.0) Basophils (%) (Auto) 0.7 % (0.0-2.0) 0.4 % (0.0-2.0) Sodium Level 142 MMOL/L (136-145) 143 MMOL/L (136-145) Potassium Level 3.7 MMOL/L (3.5-5.1) 3.7 MMOL/L (3.5-5.1) Chloride Level 101 MMOL/L (98-107) 102 MMOL/L (98-107) Carbon Dioxide Level 27 MMOL/L (21-32) 32 MMOL/L (21-32) Anion Gap 14 mmol/L (5-15) 9 mmol/L (5-15) Blood Urea Nitrogen 34 mg/dL (7-18) 36 mg/dL (7-18) Creatinine 1.4 MG/DL (0.55-1.30) 1.5 MG/DL (0.55-1.30) Estimat Glomerular Filtration Rate 37.4 mL/min (>60) 34.5 mL/min (>60) Glucose Level 377 MG/DL (74-106) 427 MG/DL (74-106) Calcium Level 9.2 MG/DL (8.5-10.1) 8.9 MG/DL (8.5-10.1) Phosphorus Level 3.9 MG/DL (2.5-4.9) 3.3 MG/DL (2.5-4.9) Magnesium Level 2.1 MG/DL (1.8-2.4) 2.3 MG/DL (1.8-2.4) Total Bilirubin 0.4 MG/DL (0.2-1.0) 0.2 MG/DL (0.2-1.0) Aspartate Amino Transf (AST/SGOT) 28 U/L (15-37) 25 U/L (15-37) Alanine Aminotransferase (ALT/SGPT) 20 U/L (12-78) 25 U/L (12-78) Alkaline Phosphatase 53 U/L (46-116) 56 U/L (46-116) Troponin I 0.413 ng/mL (0.000-0.056) C-Reactive Protein, Quantitative 5.9 mg/dL (0.00-0.90) 3.2 mg/dL (0.00-0.90) Pro-B-Type Natriuretic Peptide 88173 pg/mL (0-125) 6429 pg/mL (0-125) Total Protein 7.9 G/DL (6.4-8.2) 7.7 G/DL (6.4-8.2) Albumin 2.7 G/DL (3.4-5.0) 2.8 G/DL (3.4-5.0) Globulin 5.2 g/dL 4.9 g/dL Albumin/Globulin Ratio 0.5 (1.0-2.7) 0.6 (1.0-2.7) Height (Feet): 5 Height (Inches): 5.00 Weight (Pounds): 130 Objective Physical Exam Vitals: reviewed General: alert, non-toxic, thin, other - Frail, Chronically Ill Head: normocephalic, atraumatic Heent: bilateral eye normal inspection, bilateral eye PERRl Respiratory: lungs clear, normal breath sounds, vmask++ Cardiovascular: regular rate, rhythm, no edema Gi: non tender, soft, decreased bowel sounds Gu: no CVA tenderness Msk: no calf tenderness, + Atrophy Neuro: alert, sensory intact, w motor weakness Psychiatric: mood/affect normal Skin: ++ Danie Jackson MD Sep 24, 2019 08:01
[2019-09-24] MEDS: Docusate 100mg cap ORAL SCH ×3 (08:48→16:57)
[2019-09-24] MEDS: Levodopa/Carbidopa 25/100 tab ORAL SCH ×3 (08:48→16:57)
[2019-09-24] MEDS: dilTIAZem HCl 30mg tab ORAL SCH ×2 (08:48→13:49)
--- NOTE | 2019-09-24 10:32 | NUR ---
RADIOLOGY DEPT., CHEST X-RAY DONE.-P.DYE
--- NOTE | 2019-09-24 11:14 | Pulmonology Progress Note ---
Subjective ROS Limited/Unobtainable: Yes Interval Events: Now in ventimask Constitutional: Reports: no symptoms HEENT: Repors: no symptoms Respiratory: Reports: shortness of breath Cardiovascular: Reports: no symptoms Gastrointestinal/Abdominal: Reports: no symptoms Allergies: Coded Allergies: No Known Allergies (Unverified , 11/08/15) Objective Last 24 Hour Vital Signs Date Time Temp Pulse Resp B/P (MAP) Pulse Ox O2 Delivery O2 Flow Rate FiO2 09/24/19 09:46 Venturi Mask 14.0 09/24/19 08:48 87 115/76 09/24/19 08:00 98.6 92 22 160/68 (98) 98 09/24/19 07:00 87 16 96 Venturi Mask 14.0 55 09/24/19 04:00 87 09/24/19 04:00 97.8 87 20 115/76 (89) 96 09/24/19 00:00 97.7 98 20 131/74 (93) 97 09/24/19 00:00 73 09/23/19 21:15 76 16 98 Venturi Mask 14.0 55 09/23/19 21:00 Venturi Mask 14.0 09/23/19 20:00 77 09/23/19 20:00 97.5 98 20 112/74 (87) 98 09/23/19 18:06 88 139/76 09/23/19 16:00 97.7 88 18 139/76 (97) 98 09/23/19 16:00 85 09/23/19 12:00 97.5 86 20 184/87 (119) 96 09/23/19 12:00 84 09/23/19 11:48 184/87 Intake and Output 09/23/19 09/24/19 19:00 07:00 Intake Total 140 ml Output Total 600 ml Balance 140 ml -600 ml Intake Oral 140 ml Output Urine Total 600 ml # Bowel Movements 1 1 General Appearance: no acute distress HEENT: normocephalic Respiratory: chest wall non-tender, decreased breath sounds Cardiovascular: normal peripheral pulses, normal rate Abdomen: normal bowel sounds, soft, non tender Extremities: no cyanosis Current Medications Medications (Trade) Dose Ordered Sig/Tenzin Route PRN Reason Start Time Stop Time Status Last Admin Dose Admin Acetaminophen (Tylenol) 650 mg Q4H PRN ORAL Temp >100.5 09/16/19 23:00 10/16/19 22:59 Albuterol/ Ipratropium (Albuterol/ Ipratropium) 3 ml Q4H PRN HHN Shortness of Breath 09/19/19 16:30 09/24/19 16:29 09/20/19 09:24 Atorvastatin Calcium (Lipitor) 10 mg BEDTIME ORAL 09/17/19 21:00 12/16/19 20:59 09/23/19 22:41 Carbidopa/Levodopa (Sinemet 25/100) 1 tab THREE TIMES A DAY ORAL 09/17/19 09:00 10/17/19 08:59 09/24/19 08:48 Ceftriaxone Sodium 1 gm/ Dextrose 55 ml @ 110 mls/hr Q24H IVPB 09/17/19 21:00 09/24/19 20:59 09/23/19 22:41 Clonidine HCl (Catapres Tab) 0.1 mg Q2H PRN ORAL For High Blood Pressure 09/21/19 09:15 12/20/19 09:14 09/23/19 11:48 Dextrose (Dextrose 50%) 25 ml Q30M PRN IV Hypoglycemia 09/16/19 23:00 12/15/19 22:59 Dextrose (Dextrose 50%) 50 ml Q30M PRN IV Hypoglycemia 09/16/19 23:00 12/15/19 22:59 Diltiazem HCl (Cardizem) 30 mg BID ORAL 09/21/19 09:15 10/21/19 09:14 09/24/19 08:48 Docusate Sodium (Colace) 100 mg THREE TIMES A DAY ORAL 09/17/19 09:00 10/17/19 08:59 09/24/19 08:48 Escitalopram Oxalate (Lexapro) 10 mg DAILY ORAL 09/17/19 09:00 10/17/19 08:59 09/24/19 08:48 Furosemide (Lasix) 40 mg EVERY 12 HOURS IV 09/20/19 21:00 10/20/19 20:59 09/24/19 08:48 Insulin Aspart (NovoLOG) BEFORE MEALS AND HS SUBQ 09/17/19 06:30 12/16/19 06:29 09/24/19 05:54 Lorazepam (Ativan) 1 mg Q6H PRN ORAL For Anxiety 09/19/19 01:00 09/26/19 00:59 Mirtazapine (Remeron) 7.5 mg BEDTIME PRN ORAL INSOMNIA 09/19/19 01:00 12/18/19 00:59 Nateglinide (Starlix) 120 mg THREE TIMES A DAY ORAL 09/20/19 13:00 10/17/19 08:59 09/24/19 08:49 Pantoprazole (Protonix) 40 mg EVERY 12 HOURS ORAL 09/17/19 09:00 10/17/19 08:59 09/24/19 08:48 Assessment/Plan Assessment/Plan IMPRESSION: 1. Hypoxemia. Suspect pulm edema 2. Diabetes mellitus. 3. Decubitus ulcer, sacrum. 4. UTI. 5. Hypertension. 6. Hyperlipidemia. DISCUSSION: Will continue to diurese Has lost 5kg in weight Is I/O negatuive COVID 19 pcr x1 is negative Continue O2 Abx for UTI Negative venous duplex lower extremities Dc planning to SNF once she is on lower FiO2 Valery Lee Omar Syed MD Sep 24, 2019 11:14
--- NOTE | 2019-09-24 11:23 | Diagnostic Imaging Report ---
Indication: Shortness of breath Technique: One view of the chest Comparison: 09/21/2019 Findings: Lungs and pleural spaces are clear. Heart size is normal. Bilateral infiltrates previously demonstrated have resolved in the interim. Impression: Interim resolution of previously demonstrated bilateral infiltrates versus edema. No definite acute process currently
--- NOTE | 2019-09-24 11:43 | Cardiac Electrophysiology PN ---
Assessment/Plan Status Narrative 1. Patchy densities and ground-glass opacities throughout right greater than left, concerning for an infectious/inflammatory process and/or pulmonary edema. 2. Small bilateral pleural effusions. 3. No pulmonary embolus identified. 4. Mild prominence of the pulmonary artery is suggestive of pulmonary arterial hypertension. Assessment/Plan 1. Hypertension on Lasix 40 iv bid, Cardizem 30 bid and prn Clonidine 2. Troponin leak. First 2 troponins were negative. 3rd troponin now mildly elevated and repeat troponin lower at 0.4. Echo EF 65% 3. Fever and UTI on iv Abx. Ruled out for COVID. 4. Diabetes. 5. Contracted gallbladder, packed with stones by Abd US. FU GI 6. Respiratory failure, COPD and pulmonary HTN. Chest CT showed no PE. On Lasix 4o iv bid 7. Hyperlipidemia, on Lipitor. PATRICK RN and Dr Alonzo Subjective Subjective On Face Mask and 55% Fio2 Chest CT no PE. BNP > 73091. On iv Lasix. BP better with Cardizem.In SR Objective Last 24 Hour Vital Signs Date Time Temp Pulse Resp B/P (MAP) Pulse Ox O2 Delivery O2 Flow Rate FiO2 09/24/19 09:46 Venturi Mask 14.0 09/24/19 08:48 87 115/76 09/24/19 08:00 89 09/24/19 08:00 98.6 92 22 160/68 (98) 98 09/24/19 07:00 87 16 96 Venturi Mask 14.0 55 09/24/19 04:00 87 09/24/19 04:00 97.8 87 20 115/76 (89) 96 09/24/19 00:00 97.7 98 20 131/74 (93) 97 09/24/19 00:00 73 09/23/19 21:15 76 16 98 Venturi Mask 14.0 55 09/23/19 21:00 Venturi Mask 14.0 09/23/19 20:00 77 09/23/19 20:00 97.5 98 20 112/74 (87) 98 09/23/19 18:06 88 139/76 09/23/19 16:00 97.7 88 18 139/76 (97) 98 09/23/19 16:00 85 09/23/19 12:00 97.5 86 20 184/87 (119) 96 09/23/19 12:00 84 09/23/19 11:48 184/87 Intake and Output 09/23/19 09/24/19 19:00 07:00 Intake Total 140 ml Output Total 600 ml Balance 140 ml -600 ml Intake Oral 140 ml Output Urine Total 600 ml # Bowel Movements 1 1 Objective HEAD AND NECK: No JVD. LUNGS: Clear. CARDIOVASCULAR: Regular S1 and S2 with no gallop. ABDOMEN: Soft. EXTREMITIES: No pitting edema. Noe Galdamez MD Sep 24, 2019 11:43
--- NOTE | 2019-09-24 12:07 | NUR ---
RD ASSESSMENT & RECOMMENDATIONS SEE CARE ACTIVITY FOR COMPLETE ASSESSMENT DAILY ESTIMATED NEEDS: Needs based on Cardiac, DM, wound. 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 CURRENT DIET:CCHO MED, pureed moist + NTL + Glucerna TID PO DIET RECOMMENDATIONS: CCHO LOW/ texture per WR[employer] KNITTING MACHINE OPERATOR ADDITIONAL RECOMMENDATIONS: * Calibrated bedscale wt for accurate CBW * Monitor lytes closely w/ Lasix, replete as needed * W/ PO intake consistently >50%, rec CCHO LOW, LOW NA diet * Maintain Glucerna TID w/ meals w/ poor + variable intake * Consider long acting insulin for improved BG control: BGs 200s-400's * MVI x 1 as supplement and to improve skin integrity * Consider appetite stimulant
--- NOTE | 2019-09-24 12:17 | NUR ---
CASE MANAGEMENT:REVIEW 09/24/19 SI: BILATERAL INFILTRATES. HYPOXEMIA. UTI COVID 19 NOT DETECTED 98.6 92 22 160/68 98% ON 6L/35% VIA VENTURI MASK WBC+12.8 H/H-9.9/28.3 BUN+36 CR+1.45 IS: IV ROCEPHIN Q24 CARDIZEM PO BID IV LASIX Q12 LEXAPRO PO QD PROTONIX PO QD SINEMET PO TID : TELEMETRY STATUS DCP: PATIENT IS FROM [facility] PLAN: VIDEO SWALLOW
--- NOTE | 2019-09-24 12:32 | NUR ---
DISCHARGE PLANNING PATIENT IS FROM [facility] NOT READY FOR DISCHARGE: WEANING OXYGEN ~ NOW ON 6L @ 35% FIO2 VIA VENTURI MASK MUST BE ON NASAL CANNULA TO RETURN TO SNF
--- NOTE | 2019-09-24 14:11 | Nephrology Progress Note ---
Assessment/Plan Problem List: (1) MER (acute kidney injury) (2) Dehydration (3) Type 2 diabetes mellitus (4) Anemia (5) UTI (urinary tract infection) Assessment Acute renal failure, most likely dehydration Will watch for underlying chronic kidney disease. Anemia, etiology to be identified Toxic metabolic encephalopathy on presentation Diabetes mellitus [id number] with hemoglobin A1c of 8.9 History of COPD History of pulmonary hypertension History of UTI, evidence of UTI on this admission Patient currently full code however on previous admission was DNR Plan September 23: No labs today. Cardiology note appreciated. Medication reviewed. Will check lab tomorrow. Continue per consultants. September 22: Serum creatinine slightly higher to 1.5 today. Remains full code and remains on Venturi mask. Continue per cardiology management. September 21: Renal parameters stable. Continue per cardiology management. Remains full code and on Venturi mask. Will continue to monitor electrolytes and renal parameters. September 20: Discussed with Dr. Galdamez: Serum creatinine down to 1.3. Troponin I went up. Cardizem started for blood pressure. Patient remains on nonrebreather mask. Continue current management. Previously: Serum creatinine gonsalo to 1.6. This morning's blood sugar 455. White blood cells gonsalo to over 17,000. Continue to treat underlying infection. Continue per ID and pulmonary. Avoid nephrotoxic's. Continue to monitor renal parameters. Stop IV hydration. 1 dose of Lasix IV and 1 dose of potassium chloride p.o. ordered. Defer management of the underlying pulmonary condition to buttermaker. Per orders. Monitor renal parameters Monitor electrolytes Keep the blood pressure and blood sugar in check Urine studies Antibiotics as needed Per consultants Subjective ROS Limited/Unobtainable: No Constitutional: Reports: malaise, weakness Objective Objective Last 24 Hour Vital Signs Date Time Temp Pulse Resp B/P (MAP) Pulse Ox O2 Delivery O2 Flow Rate FiO2 09/24/19 13:49 87 115/76 09/24/19 12:26 Venturi Mask 6.0 09/24/19 09:46 Venturi Mask 14.0 09/24/19 08:48 87 115/76 09/24/19 08:00 89 09/24/19 08:00 98.6 92 22 160/68 (98) 98 09/24/19 07:00 87 16 96 Venturi Mask 14.0 55 09/24/19 04:00 87 09/24/19 04:00 97.8 87 20 115/76 (89) 96 09/24/19 00:00 97.7 98 20 131/74 (93) 97 09/24/19 00:00 73 09/23/19 21:15 76 16 98 Venturi Mask 14.0 55 09/23/19 21:00 Venturi Mask 14.0 09/23/19 20:00 77 09/23/19 20:00 97.5 98 20 112/74 (87) 98 09/23/19 18:06 88 139/76 09/23/19 16:00 97.7 88 18 139/76 (97) 98 09/23/19 16:00 85 Intake and Output 09/23/19 09/24/19 19:00 07:00 Intake Total 140 ml Output Total 600 ml Balance 140 ml -600 ml Intake Oral 140 ml Output Urine Total 600 ml # Bowel Movements 1 1 No labs done today Height (Feet): 5 Height (Inches): 5.00 Weight (Pounds): 130 General Appearance: no apparent distress EENT: other - On Venturi mask Cardiovascular: tachycardia Respiratory/Chest: decreased breath sounds Abdomen: distended José Miguel Calvert MD Sep 24, 2019 14:11
--- NOTE | 2019-09-24 14:20 | NUR ---
SAWING AND ASSEMBLY SUPERVISOR MBSS RESULTS COMPLETED MBSS WITH PATIENT, COMPLETE REPORT IN CARE ACTIVITY SECTION INITIAL IMPRESSIONS Mild to Moderate Oropharyngeal Dysphagia (oral phase worse versus pharyngeal phase) with prolonged oral prep and oropharyngeal transit times due to sensorimotor deficits and compounded by cognitive behavioral deficits fatigue, and reduced respiratory strength. THIN LIQUIDS TSP: No radiographic evidence of aspiration or penetration. STRAW: Flash penetration before the swallow above the level of the vocal cords due to delayed swallow and late/incomplete closure of laryngeal vestibule. No remaining residuals. No radiographic evidence of aspiration. NECTAR THICK LIQUIDS: PAS 1 TSP: No radiographic evidence of aspiration or penetration. Pharyngeal residuals worse with nectar thick liquids versus thin liquids. PUREE/PUDDING THICK: PAS 1 TSP: No evidence of aspiration or penetration, reduced and prolonged A-P transit to BOT, albeit functional. MASTICATED SOLIDS: Prolonged and ineffective mastication of soft solids, multiple attempts to re-collect bolus in oral cavity due to disorganized tongue movement. Patient required liquid rinse to facilitate clearance, however, pieces of un-chewed food remaining in oral cavity which patient was unable to masticate and spit out. HAS ASPIRATION RISK AND REDUCED SWALLOW EFFICIENCY DUE TO THE FOLLOWING DEFICITS: Oral Impairment: Lip Closure Tongue Control Bolus preparation/mastication Bolus transport/lingual motion Oral residue Pharyngeal Impairment: Initiation of pharyngeal swallow Soft palate elevation Laryngeal elevation (LE) Laryngeal vestibular closure Tongue base retraction Pharyngeal residue Decrease pharyngeal sensation ESOPHAGEAL PHASE: Grossly functional, view limited to lateral due to Patient positioning. TRIAL TX: Patient benefits from intermittent verbal cues to re-swallow. No further modifications attempted/indicated. RECOMMENDATIONS: 1. Moist Puree with Thin Liquids via 1 to 1 hand feeding for encouragement and assistance with self-feeding. 2. SAWING AND ASSEMBLY SUPERVISOR plans to f/u for diet tolerance and dysphagia tx/management. SAWING AND ASSEMBLY SUPERVISOR PLANS TO CONTINUE TO F/U WITH PATIENT WHILE IN HOUSE FOR DIET TOLERANCE AND DYSPHAGIA TX/MANAGEMENT SAWING AND ASSEMBLY SUPERVISOR [id number]
[2019-09-24] MEDS ORDERED: Varibar Honey 250ml MC PRN (14:45)
[2019-09-24] MEDS ORDERED: Varibar Pudding 230ml MC PRN (14:45)
[2019-09-24] MEDS ORDERED: Varibar Nectar 240ml MC PRN (14:45)
--- NOTE | 2019-09-24 16:41 | General Progress Note ---
Assessment/Plan Problem List: (1) Severe sepsis ICD Codes: A41.9 - Sepsis, unspecified organism; R65.20 - Severe sepsis without septic shock SNOMED: 91607093 (2) Constipation ICD Codes: K59.00 - Constipation, unspecified SNOMED: 33694233 (3) Cholelithiasis ICD Codes: K80.20 - Calculus of gallbladder without cholecystitis without obstruction SNOMED: 050323802 (4) Pulmonary hypertension ICD Codes: I27.20 - Pulmonary hypertension, unspecified SNOMED: 87275237 (5) Dehydration ICD Codes: E86.0 - Dehydration SNOMED: 08367108 (6) UTI (urinary tract infection) ICD Codes: N39.0 - Urinary tract infection, site not specified SNOMED: 22451646 (7) Encephalopathy ICD Codes: G93.40 - Encephalopathy, unspecified SNOMED: 09614514, 067107630 (8) Anemia ICD Codes: D64.9 - Anemia, unspecified SNOMED: 470224521 (9) Hyperlipidemia associated with type 2 diabetes mellitus ICD Codes: E11.69 - Type 2 diabetes mellitus with other specified complication ; E78.5 - Hyperlipidemia, unspecified SNOMED: 373647794, 142843028299 (10) Type 2 diabetes mellitus ICD Codes: E11.9 - Type 2 diabetes mellitus without complications SNOMED: 10417932, 680462310 Status: progressing Assessment/Plan: still on face mask and high oxygen dr yeager didnt clear pt for dc copd resp insuff prn wheezing niddm htn poor respiratory reserve Subjective ROS Limited/Unobtainable: Yes Allergies: Coded Allergies: No Known Allergies (Unverified , 11/08/15) Objective Last 24 Hour Vital Signs Date Time Temp Pulse Resp B/P (MAP) Pulse Ox O2 Delivery O2 Flow Rate FiO2 09/24/19 13:49 87 115/76 09/24/19 12:26 Venturi Mask 6.0 09/24/19 12:00 97.5 85 20 149/80 (103) 98 09/24/19 12:00 85 09/24/19 09:46 Venturi Mask 14.0 09/24/19 08:48 87 115/76 09/24/19 08:00 89 09/24/19 08:00 98.6 92 22 160/68 (98) 98 09/24/19 07:00 87 16 96 Venturi Mask 14.0 55 09/24/19 04:00 87 09/24/19 04:00 97.8 87 20 115/76 (89) 96 09/24/19 00:00 97.7 98 20 131/74 (93) 97 09/24/19 00:00 73 09/23/19 21:15 76 16 98 Venturi Mask 14.0 55 09/23/19 21:00 Venturi Mask 14.0 09/23/19 20:00 77 09/23/19 20:00 97.5 98 20 112/74 (87) 98 09/23/19 18:06 88 139/76 Intake and Output 09/23/19 09/24/19 19:00 07:00 Intake Total 140 ml Output Total 600 ml Balance 140 ml -600 ml Intake Oral 140 ml Output Urine Total 600 ml # Bowel Movements 1 1 Height (Feet): 5 Height (Inches): 5.00 Weight (Pounds): 130 Amelie Rios MD Sep 24, 2019 16:41
--- NOTE | 2019-09-24 19:35 | NUR ---
NURSE NOTES: Pt received from NEFTALI Diaz alert and oriented x2 to name and place with no acute s/s of distress noted. On 6L Venturi Mask at 35% FiO2, saturating at 94%. domain architect - Sinus Rhythm. Redness noted on Sacrum, optifoam intact, re-applied triad for protection. Bilateral heel non-blanchable redness noted, optifoam intact for protection. Bed in lowest position, call light and belongings within reach.
--- NOTE | 2019-09-24 22:15 | NUR ---
NURSE NOTES: Bed bath given, linens changed and elva-care done. Redness noted on sacral and bilateral heels. Calazime applied to sacral and perineal area for protection, optifoam applied to sacrum and bilateral heels for protection. Patient able to self-reposition. Heels elevated.
[2019-09-25] VITALS: BP 164/90
--- NOTE | 2019-09-25 01:06 | NUR ---
NURSE NOTES: Pt had BM - black tarry stool, with notable black fluid leaking from NGT site. Bed bath provided, linens changed, and calazime applied to perineal and groin areas for skin protection. Heels elevated and patient reposition as needed. RN stopped Gtube feed and assessed residual - 125 ml. Paused NGTube feed, no abdominal distention noted. Addendum: 09/25/19 at 0108 by Jessee Anne RN Charted under wrong patient.
--- NOTE | 2019-09-25 02:50 | NUR ---
NURSE NOTES: Pt weaned off of Venturi Mask, able to tolerate room air at 94% with no acute s/s of distress noted.
[2019-09-25 04:00] VITALS: BP 140/87
[2019-09-25] MEDS: NovoLOG Insulin Flexpen SUBQ SCH ×5 (05:57→21:00)
--- NOTE | 2019-09-25 07:01 | Pulmonology Progress Note ---
Subjective ROS Limited/Unobtainable: Yes Interval Events: Now in ventimask Constitutional: Reports: no symptoms HEENT: Repors: no symptoms Respiratory: Reports: shortness of breath Cardiovascular: Reports: no symptoms Gastrointestinal/Abdominal: Reports: no symptoms Allergies: Coded Allergies: No Known Allergies (Unverified , 11/08/15) Objective Last 24 Hour Vital Signs Date Time Temp Pulse Resp B/P (MAP) Pulse Ox O2 Delivery O2 Flow Rate FiO2 09/25/19 04:00 98.8 82 20 140/87 (104) 96 09/25/19 04:00 87 09/25/19 00:23 84 16 97 Venturi Mask 6.0 35 09/25/19 00:23 84 16 97 Venturi Mask 6.0 35 09/25/19 00:00 80 09/25/19 00:00 98.4 81 20 164/90 (114) 98 09/24/19 22:00 87 152/78 (102) 09/24/19 21:00 Venturi Mask 6.0 09/24/19 20:42 173/92 09/24/19 20:00 79 09/24/19 20:00 98.8 85 18 173/98 (123) 96 09/24/19 16:00 87 09/24/19 16:00 98.1 87 20 146/83 (104) 97 09/24/19 13:49 87 115/76 09/24/19 12:26 Venturi Mask 6.0 09/24/19 12:00 97.5 85 20 149/80 (103) 98 09/24/19 12:00 85 09/24/19 09:46 Venturi Mask 14.0 09/24/19 08:48 87 115/76 09/24/19 08:00 89 09/24/19 08:00 98.6 92 22 160/68 (98) 98 Intake and Output 09/24/19 09/25/19 19:00 07:00 Intake Total 1200 ml 200 ml Balance 1200 ml 200 ml Intake Oral 1200 ml 200 ml # Voids 7 5 General Appearance: no acute distress HEENT: normocephalic Respiratory: chest wall non-tender, decreased breath sounds Cardiovascular: normal peripheral pulses, normal rate Abdomen: normal bowel sounds, soft, non tender Extremities: no cyanosis Current Medications Medications (Trade) Dose Ordered Sig/Tenzin Route PRN Reason Start Time Stop Time Status Last Admin Dose Admin Acetaminophen (Tylenol) 650 mg Q4H PRN ORAL Temp >100.5 09/16/19 23:00 10/16/19 22:59 Atorvastatin Calcium (Lipitor) 10 mg BEDTIME ORAL 09/17/19 21:00 12/16/19 20:59 09/24/19 20:43 Barium Sulfate (Varibar Honey) 250 ml NOW PRN RAD 09/24/19 14:45 09/27/19 14:30 Barium Sulfate (Varibar [place]) 240 ml NOW PRN MC RAD 09/24/19 14:45 09/27/19 14:30 Barium Sulfate (Varibar Pudding) 230 ml NOW PRN RAD 09/24/19 14:45 09/27/19 14:30 Carbidopa/Levodopa (Sinemet 25/100) 1 tab THREE TIMES A DAY ORAL 09/17/19 09:00 10/17/19 08:59 09/24/19 16:57 Clonidine HCl (Catapres Tab) 0.1 mg Q2H PRN ORAL For High Blood Pressure 09/21/19 09:15 12/20/19 09:14 09/24/19 20:42 Dextrose (Dextrose 50%) 25 ml Q30M PRN IV Hypoglycemia 09/16/19 23:00 12/15/19 22:59 Dextrose (Dextrose 50%) 50 ml Q30M PRN IV Hypoglycemia 09/16/19 23:00 12/15/19 22:59 Diltiazem HCl (Cardizem) 30 mg BID ORAL 09/21/19 09:15 10/21/19 09:14 09/24/19 13:49 Docusate Sodium (Colace) 100 mg THREE TIMES A DAY ORAL 09/17/19 09:00 10/17/19 08:59 09/24/19 16:57 Escitalopram Oxalate (Lexapro) 10 mg DAILY ORAL 09/17/19 09:00 10/17/19 08:59 09/24/19 08:48 Furosemide (Lasix) 40 mg EVERY 12 HOURS IV 09/20/19 21:00 10/20/19 20:59 09/24/19 20:43 Insulin Aspart (NovoLOG) BEFORE MEALS AND HS SUBQ 09/17/19 06:30 12/16/19 06:29 09/25/19 05:57 Lorazepam (Ativan) 1 mg Q6H PRN ORAL For Anxiety 09/19/19 01:00 09/26/19 00:59 Mirtazapine (Remeron) 7.5 mg BEDTIME PRN ORAL INSOMNIA 09/19/19 01:00 12/18/19 00:59 Nateglinide (Starlix) 120 mg THREE TIMES A DAY ORAL 09/20/19 13:00 10/17/19 08:59 09/24/19 16:57 Pantoprazole (Protonix) 40 mg EVERY 12 HOURS ORAL 09/17/19 09:00 10/17/19 08:59 09/24/19 20:42 Assessment/Plan Assessment/Plan IMPRESSION: 1. Hypoxemia. Suspect pulm edema 2. Diabetes mellitus. 3. Decubitus ulcer, sacrum. 4. UTI. 5. Hypertension. 6. Hyperlipidemia. DISCUSSION: Will continue to diurese Has lost 5kg in weight Is I/O negatuive COVID 19 pcr x1 is negative Continue O2 Abx for UTI Negative venous duplex lower extremities Dc planning to SNF once she is on lower FiO2 Valery Lee Omar Syed MD Sep 25, 2019 07:01
--- NOTE | 2019-09-25 07:10 | NUR ---
HAND-OFF: Report given to NEFTALI Diaz.
--- NOTE | 2019-09-25 08:00 | NUR ---
NURSE NOTES: Pt awake/alert in bed, breathing easily on room air, denies SOB and denies pain at this time. Vital signs stable with SR @ 95 on monitor. IV access LAC, flushed with 10 ml NS and locked. Purewick in place. Heels protected with optifoam. Bed left in low position, side rails up x 3 and call light left near pt's hand.
[2019-09-25 08:12] VITALS: BP 174/94
[2019-09-25 08:49] LABS: HEMOGLOBIN 11.5 G/DL (12.0-16.0); MEAN CORPUSCULAR VOLUME 94 FL (80-99); PLATELET COUNT 451 K/UL (150-450); RED BLOOD COUNT 3.84 M/UL (4.20-5.40); RED CELL DISTRIBUTION WIDTH 11.3 % (11.6-14.8)
--- NOTE | 2019-09-25 09:10 | Nephrology Progress Note ---
Assessment/Plan Problem List: (1) MER (acute kidney injury) (2) Dehydration (3) Type 2 diabetes mellitus (4) Anemia (5) UTI (urinary tract infection) Assessment Acute renal failure, most likely dehydration Will watch for underlying chronic kidney disease. Anemia, etiology to be identified Toxic metabolic encephalopathy on presentation Diabetes mellitus [id number] with hemoglobin A1c of 8.9 History of COPD History of pulmonary hypertension History of UTI, evidence of UTI on this admission Patient currently full code however on previous admission was DNR Plan September 24: Today's labs still pending. Continue per consultants. We will aim to correct electrolyte abnormalities. September 23: No labs today. Cardiology note appreciated. Medication reviewed. Will check lab tomorrow. Continue per consultants. September 22: Serum creatinine slightly higher to 1.5 today. Remains full code and remains on Venturi mask. Continue per cardiology management. September 21: Renal parameters stable. Continue per cardiology management. Remains full code and on Venturi mask. Will continue to monitor electrolytes and renal parameters. September 20: Discussed with Dr. Galdamez: Serum creatinine down to 1.3. Troponin I went up. Cardizem started for blood pressure. Patient remains on nonrebreather mask. Continue current management. Previously: Serum creatinine gonsalo to 1.6. This morning's blood sugar 455. White blood cells gonsalo to over 17,000. Continue to treat underlying infection. Continue per ID and pulmonary. Avoid nephrotoxic's. Continue to monitor renal parameters. Stop IV hydration. 1 dose of Lasix IV and 1 dose of potassium chloride p.o. ordered. Defer management of the underlying pulmonary condition to emergency worker. Per orders. Monitor renal parameters Monitor electrolytes Keep the blood pressure and blood sugar in check Urine studies Antibiotics as needed Per consultants Subjective ROS Limited/Unobtainable: Yes Constitutional: Reports: malaise, weakness Objective Objective Last 24 Hour Vital Signs Date Time Temp Pulse Resp B/P (MAP) Pulse Ox O2 Delivery O2 Flow Rate FiO2 09/25/19 08:43 102 09/25/19 08:41 Venturi Mask 6.0 09/25/19 08:12 97.7 97 18 174/94 (120) 97 09/25/19 04:00 98.8 82 20 140/87 (104) 96 09/25/19 04:00 87 09/25/19 00:23 84 16 97 Venturi Mask 6.0 35 09/25/19 00:23 84 16 97 Venturi Mask 6.0 35 09/25/19 00:00 80 09/25/19 00:00 98.4 81 20 164/90 (114) 98 09/24/19 22:00 87 152/78 (102) 09/24/19 21:00 Venturi Mask 6.0 09/24/19 20:42 173/92 09/24/19 20:00 79 09/24/19 20:00 98.8 85 18 173/98 (123) 96 09/24/19 16:00 87 09/24/19 16:00 98.1 87 20 146/83 (104) 97 09/24/19 13:49 87 115/76 09/24/19 12:26 Venturi Mask 6.0 09/24/19 12:00 97.5 85 20 149/80 (103) 98 09/24/19 12:00 85 09/24/19 09:46 Venturi Mask 14.0 Intake and Output 09/24/19 09/25/19 19:00 07:00 Intake Total 1200 ml 200 ml Balance 1200 ml 200 ml Intake Oral 1200 ml 200 ml # Voids 7 5 Laboratory Tests 09/25/19 07:35: White Blood Count [Pending], Red Blood Count [Pending], Hemoglobin [Pending], Hematocrit [Pending], Mean Corpuscular Volume [Pending], Mean Corpuscular Hemoglobin [Pending], Mean Corpuscular Hemoglobin Concent [Pending], Red Cell Distribution Width [Pending], Platelet Count [Pending], Mean Platelet Volume [ Pending], Neutrophils (%) (Auto) [Pending], Lymphocytes (%) (Auto) [Pending], Monocytes (%) (Auto) [Pending], Eosinophils (%) (Auto) [Pending], Basophils (%) (Auto) [Pending], Sodium Level [Pending], Potassium Level [Pending], Chloride Level [Pending], Carbon Dioxide Level [Pending], Blood Urea Nitrogen [Pending], Creatinine [Pending], Estimat Glomerular Filtration Rate [Pending], Glucose Level [Pending], Calcium Level [Pending], Phosphorus Level [Pending], Magnesium Level [Pending], Total Bilirubin [Pending], Aspartate Amino Transf (AST/SGOT) [ Pending], Alanine Aminotransferase (ALT/SGPT) [Pending], Alkaline Phosphatase [ Pending], C-Reactive Protein, Quantitative [Pending], Pro-B-Type Natriuretic Peptide [Pending], Total Protein [Pending], Albumin [Pending], Globulin [Pending ] Height (Feet): 5 Height (Inches): 5.00 Weight (Pounds): 130 General Appearance: mild distress EENT: other - Has a Venturi mask Cardiovascular: tachycardia Respiratory/Chest: decreased breath sounds Abdomen: distended José Miguel Calvert MD Sep 25, 2019 09:10
[2019-09-25] MEDS: Levodopa/Carbidopa 25/100 tab ORAL SCH ×3 (09:14→18:01)
[2019-09-25] MEDS: Docusate 100mg cap ORAL SCH ×3 (09:14→18:01)
[2019-09-25] MEDS: dilTIAZem HCl 30mg tab ORAL SCH ×2 (09:14→18:01)
--- NOTE | 2019-09-25 09:24 | General Progress Note ---
Assessment/Plan Problem List: (1) Severe sepsis ICD Codes: A41.9 - Sepsis, unspecified organism; R65.20 - Severe sepsis without septic shock SNOMED: 49032711 (2) Constipation ICD Codes: K59.00 - Constipation, unspecified SNOMED: 95528269 (3) Cholelithiasis ICD Codes: K80.20 - Calculus of gallbladder without cholecystitis without obstruction SNOMED: 917630623 (4) Pulmonary hypertension ICD Codes: I27.20 - Pulmonary hypertension, unspecified SNOMED: 28310605 (5) Dehydration ICD Codes: E86.0 - Dehydration SNOMED: 21437560 (6) UTI (urinary tract infection) ICD Codes: N39.0 - Urinary tract infection, site not specified SNOMED: 34633197 (7) Encephalopathy ICD Codes: G93.40 - Encephalopathy, unspecified SNOMED: 56736631, 710042240 (8) Anemia ICD Codes: D64.9 - Anemia, unspecified SNOMED: 882979209 (9) Hyperlipidemia associated with type 2 diabetes mellitus ICD Codes: E11.69 - Type 2 diabetes mellitus with other specified complication ; E78.5 - Hyperlipidemia, unspecified SNOMED: 923666844, 015154740361 (10) Type 2 diabetes mellitus ICD Codes: E11.9 - Type 2 diabetes mellitus without complications SNOMED: 33111827, 010565317 Status: progressing Assessment/Plan: awaiting clearance from dr yeager to tn since still on high flow oxygen niddm htn poor respiratory reserve copd prn wheezing cri is stable Subjective ROS Limited/Unobtainable: Yes Allergies: Coded Allergies: No Known Allergies (Unverified , 11/08/15) Objective Last 24 Hour Vital Signs Date Time Temp Pulse Resp B/P (MAP) Pulse Ox O2 Delivery O2 Flow Rate FiO2 09/25/19 09:14 102 174/94 09/25/19 08:43 102 09/25/19 08:41 Venturi Mask 6.0 09/25/19 08:12 97.7 97 18 174/94 (120) 97 09/25/19 04:00 98.8 82 20 140/87 (104) 96 09/25/19 04:00 87 09/25/19 00:23 84 16 97 Venturi Mask 6.0 35 09/25/19 00:23 84 16 97 Venturi Mask 6.0 35 09/25/19 00:00 80 09/25/19 00:00 98.4 81 20 164/90 (114) 98 09/24/19 22:00 87 152/78 (102) 09/24/19 21:00 Venturi Mask 6.0 09/24/19 20:42 173/92 09/24/19 20:00 79 09/24/19 20:00 98.8 85 18 173/98 (123) 96 09/24/19 16:00 87 09/24/19 16:00 98.1 87 20 146/83 (104) 97 09/24/19 13:49 87 115/76 09/24/19 12:26 Venturi Mask 6.0 09/24/19 12:00 97.5 85 20 149/80 (103) 98 09/24/19 12:00 85 09/24/19 09:46 Venturi Mask 14.0 Intake and Output 09/24/19 09/25/19 19:00 07:00 Intake Total 1200 ml 200 ml Balance 1200 ml 200 ml Intake Oral 1200 ml 200 ml # Voids 7 5 Laboratory Tests 09/25/19 07:35: White Blood Count [Pending], Red Blood Count [Pending], Hemoglobin [Pending], Hematocrit [Pending], Mean Corpuscular Volume [Pending], Mean Corpuscular Hemoglobin [Pending], Mean Corpuscular Hemoglobin Concent [Pending], Red Cell Distribution Width [Pending], Platelet Count [Pending], Mean Platelet Volume [ Pending], Neutrophils (%) (Auto) [Pending], Lymphocytes (%) (Auto) [Pending], Monocytes (%) (Auto) [Pending], Eosinophils (%) (Auto) [Pending], Basophils (%) (Auto) [Pending], Sodium Level [Pending], Potassium Level [Pending], Chloride Level [Pending], Carbon Dioxide Level [Pending], Blood Urea Nitrogen [Pending], Creatinine [Pending], Estimat Glomerular Filtration Rate [Pending], Glucose Level [Pending], Calcium Level [Pending], Phosphorus Level [Pending], Magnesium Level [Pending], Total Bilirubin [Pending], Aspartate Amino Transf (AST/SGOT) [ Pending], Alanine Aminotransferase (ALT/SGPT) [Pending], Alkaline Phosphatase [ Pending], C-Reactive Protein, Quantitative [Pending], Pro-B-Type Natriuretic Peptide [Pending], Total Protein [Pending], Albumin [Pending], Globulin [Pending ] Height (Feet): 5 Height (Inches): 5.00 Weight (Pounds): 130 Amelie Rios MD Sep 25, 2019 09:24
[2019-09-25 09:59] LABS: ALANINE AMINOTRANSFERASE 30 U/L (12-78); ALBUMIN 3.3 G/DL (3.4-5.0); ALBUMIN/GLOBULIN RATIO 0.6 (1.0-2.7); ALKALINE PHOSPHATASE 56 U/L (46-116); ANION GAP 7 mmol/L (5-15); ASPARTATE AMINO TRANSFERASE 29 U/L (15-37); BILIRUBIN,TOTAL 0.2 MG/DL (0.2-1.0); BLOOD UREA NITROGEN 41 mg/dL (7-18); CALCIUM 9.5 MG/DL (8.5-10.1); CARBON DIOXIDE 37 MMOL/L (21-32); CHLORIDE 104 MMOL/L (98-107); CREATININE 1.7 MG/DL (0.55-1.30); PHOSPHORUS 3.5 MG/DL (2.5-4.9); POTASSIUM 3.5 MMOL/L (3.5-5.1); SODIUM 148 MMOL/L (136-145)
[2019-09-25 11:56] VITALS: BP 153/73
--- NOTE | 2019-09-25 13:02 | NUR ---
NURSE NOTES: Call placed to Dr Munoz. Message left on voice mail.
--- NOTE | 2019-09-25 13:25 | NUR ---
NURSE NOTES: Dr Munoz returned call. Orders received and read back.
[2019-09-25] MEDS ORDERED: Levemir Flexpen SUBQ ONE (13:30)
[2019-09-25] MEDS: Levemir Flexpen SUBQ SCH (13:47)
[2019-09-25 15:34] VITALS: BP 135/74
--- NOTE | 2019-09-25 15:46 | Cardiac Electrophysiology PN ---
Assessment/Plan Status Narrative 1. Patchy densities and ground-glass opacities throughout right greater than left, concerning for an infectious/inflammatory process and/or pulmonary edema. 2. Small bilateral pleural effusions. 3. No pulmonary embolus identified. 4. Mild prominence of the pulmonary artery is suggestive of pulmonary arterial hypertension. Assessment/Plan 1. Hypertension on Lasix 40 iv bid, Cardizem 30 bid and prn Clonidine Change Lasix to 40 po daily 2. Troponin leak. First 2 troponins were negative. 3rd troponin now mildly elevated and repeat troponin lower at 0.4. Echo EF 65% 3. Fever and UTI on iv Abx. Ruled out for COVID. 4. Diabetes. 5. Contracted gallbladder, packed with stones by Abd US. FU GI 6. Respiratory failure, COPD and pulmonary HTN. Chest CT showed no PE. 7. Hyperlipidemia, on Lipitor. DW RN Subjective Subjective Off oxygen on room air. Comfortable. Covid negative now. Chest CT no PE. BNP > 34841. BP better with Cardizem.In SR. Objective Last 24 Hour Vital Signs Date Time Temp Pulse Resp B/P (MAP) Pulse Ox O2 Delivery O2 Flow Rate FiO2 09/25/19 15:40 100 09/25/19 15:34 97.7 80 18 135/74 (94) 95 09/25/19 12:00 76 09/25/19 11:56 97.5 77 20 153/73 (99) 91 09/25/19 10:24 101 20 96 Room Air 21 09/25/19 09:14 102 174/94 09/25/19 08:43 102 09/25/19 08:41 Room Air 09/25/19 08:12 97.7 97 18 174/94 (120) 97 09/25/19 04:00 98.8 82 20 140/87 (104) 96 09/25/19 04:00 87 09/25/19 00:23 84 16 97 Venturi Mask 6.0 35 09/25/19 00:23 84 16 97 Venturi Mask 6.0 35 09/25/19 00:00 80 09/25/19 00:00 98.4 81 20 164/90 (114) 98 09/24/19 22:00 87 152/78 (102) 09/24/19 21:00 Venturi Mask 6.0 09/24/19 20:42 173/92 09/24/19 20:00 79 09/24/19 20:00 98.8 85 18 173/98 (123) 96 09/24/19 16:00 87 09/24/19 16:00 98.1 87 20 146/83 (104) 97 Intake and Output 09/24/19 09/25/19 19:00 07:00 Intake Total 1200 ml 200 ml Balance 1200 ml 200 ml Intake Oral 1200 ml 200 ml # Voids 7 5 Laboratory Tests Test 09/25/19 07:35 White Blood Count 13.0 K/UL (4.8-10.8) H Red Blood Count 3.84 M/UL (4.20-5.40) L Hemoglobin 11.5 G/DL (12.0-16.0) L Hematocrit 36.0 % (37.0-47.0) L Mean Corpuscular Volume 94 FL (80-99) Mean Corpuscular Hemoglobin 30.0 PG (27.0-31.0) Mean Corpuscular Hemoglobin Concent 32.0 G/DL (32.0-36.0) Red Cell Distribution Width 11.3 % (11.6-14.8) L Platelet Count 451 K/UL (150-450) H Mean Platelet Volume 5.2 FL (6.5-10.1) L Neutrophils (%) (Auto) % (45.0-75.0) Lymphocytes (%) (Auto) % (20.0-45.0) Monocytes (%) (Auto) % (1.0-10.0) Eosinophils (%) (Auto) % (0.0-3.0) Basophils (%) (Auto) % (0.0-2.0) Differential Total Cells Counted 100 Neutrophils % (Manual) 68 % (45-75) Lymphocytes % (Manual) 25 % (20-45) Monocytes % (Manual) 6 % (1-10) Eosinophils % (Manual) 1 % (0-3) Basophils % (Manual) 0 % (0-2) Band Neutrophils 0 % (0-8) Platelet Estimate Adequate Platelet Morphology Normal Hypochromasia 1+ Sodium Level 148 MMOL/L (136-145) H Potassium Level 3.5 MMOL/L (3.5-5.1) Chloride Level 104 MMOL/L (98-107) Carbon Dioxide Level 37 MMOL/L (21-32) H Anion Gap 7 mmol/L (5-15) Blood Urea Nitrogen 41 mg/dL (7-18) H Creatinine 1.7 MG/DL (0.55-1.30) H Estimat Glomerular Filtration Rate 29.9 mL/min (>60) Glucose Level 359 MG/DL (74-106) H Calcium Level 9.5 MG/DL (8.5-10.1) Phosphorus Level 3.5 MG/DL (2.5-4.9) Magnesium Level 2.7 MG/DL (1.8-2.4) H Total Bilirubin 0.2 MG/DL (0.2-1.0) Aspartate Amino Transf (AST/SGOT) 29 U/L (15-37) Alanine Aminotransferase (ALT/SGPT) 30 U/L (12-78) Alkaline Phosphatase 56 U/L (46-116) C-Reactive Protein, Quantitative 1.6 mg/dL (0.00-0.90) H Pro-B-Type Natriuretic Peptide 2033 pg/mL (0-125) H Total Protein 8.4 G/DL (6.4-8.2) H Albumin 3.3 G/DL (3.4-5.0) L Globulin 5.1 g/dL Albumin/Globulin Ratio 0.6 (1.0-2.7) L Objective HEAD AND NECK: No JVD. LUNGS: Clear. CARDIOVASCULAR: Regular S1 and S2 with no gallop. ABDOMEN: Soft. EXTREMITIES: No pitting edema. Noe Galdamez MD Sep 25, 2019 15:46
--- NOTE | 2019-09-25 19:36 | NUR ---
NURSE NOTES: Received patient in bed, awake, alert and oriented x3, on room air, patient is incontinent of both bowel and bladder, IV site is clean dry and intact, call light is within reach, bed is lowered, locked, alarm is on, will continue to monitor for comfort and safety.
[2019-09-25 20:00] VITALS: BP 146/87
[2019-09-26] VITALS (7 sets, daily range): BP systolic 130–180; BP diastolic 75–92
[2019-09-26] MEDS: NovoLOG Insulin Flexpen SUBQ SCH ×7 (05:54→21:18)
--- NOTE | 2019-09-26 07:09 | NUR ---
HAND-OFF: Report given to Joe LINDSAY.
--- NOTE | 2019-09-26 07:20 | NUR ---
NURSE NOTES: Pt awake/alert in bed, breathing easily on room air, denies SOB but c/o cramping abdominal pain at this time. Vital signs stable with SR @ 95 on monitor. IV access LAC, flushed with 10 ml NS and locked. Purewick in place. Heels protected with optifoam. Bed left in low position, side rails up x 3 and call light left near pt's hand.
[2019-09-26] MEDS: Levemir Flexpen SUBQ SCH (09:00)
[2019-09-26] MEDS: Furosemide 40mg tab ORAL SCH (09:01)
[2019-09-26] MEDS: Docusate 100mg cap ORAL SCH ×3 (09:01→17:56)
[2019-09-26] MEDS: dilTIAZem HCl 30mg tab ORAL SCH ×2 (09:01→17:56)
[2019-09-26] MEDS: Levodopa/Carbidopa 25/100 tab ORAL SCH ×3 (09:01→17:56)
--- NOTE | 2019-09-26 10:04 | General Progress Note ---
Assessment/Plan Problem List: (1) Type 2 diabetes mellitus ICD Codes: E11.9 - Type 2 diabetes mellitus without complications SNOMED: 88146921, 106102195 (2) Hyperlipidemia associated with type 2 diabetes mellitus ICD Codes: E11.69 - Type 2 diabetes mellitus with other specified complication ; E78.5 - Hyperlipidemia, unspecified SNOMED: 799495113, 259481388020 (3) Anemia ICD Codes: D64.9 - Anemia, unspecified SNOMED: 232856515 Status: progressing Assessment/Plan: continue Levemir 18 units daily continue Novolog 6 units ac tid continue Novolog sliding scale ac / hs continue Starlix 120 mg ac tid Subjective Allergies: Coded Allergies: No Known Allergies (Unverified , 11/08/15) Subjective events noted glucose values improved Item Value Date Time Bedside Blood Glucose 193 mg/dl H 09/26/19 0900 Bedside Blood Glucose 193 mg/dl H 09/26/19 0554 Bedside Blood Glucose 210 mg/dl H 09/25/19 1655 Bedside Blood Glucose 410 mg/dl H 09/25/19 1347 Bedside Blood Glucose 359 mg/dl H 09/25/19 0630 Objective Last 24 Hour Vital Signs Date Time Temp Pulse Resp B/P (MAP) Pulse Ox O2 Delivery O2 Flow Rate FiO2 09/26/19 09:01 77 130/92 09/26/19 08:11 Room Air 09/26/19 08:11 77 09/26/19 08:03 97.5 87 20 130/92 (105) 97 09/26/19 07:54 81 16 96 Room Air 21 09/26/19 07:08 148/79 (102) 09/26/19 04:30 186/78 09/26/19 04:00 72 09/26/19 04:00 97.9 89 20 180/78 (112) 98 09/26/19 00:00 73 09/26/19 00:00 98.2 74 22 140/86 (104) 98 09/25/19 21:22 Venturi Mask 6.0 09/25/19 20:00 78 09/25/19 20:00 96.1 82 24 146/87 (106) 93 09/25/19 19:30 90 18 97 Room Air 21 09/25/19 18:01 100 135/74 09/25/19 15:40 100 09/25/19 15:34 97.7 80 18 135/74 (94) 95 09/25/19 12:00 76 09/25/19 11:56 97.5 77 20 153/73 (99) 91 09/25/19 10:24 101 20 96 Room Air 21 Intake and Output 09/25/19 09/26/19 19:00 07:00 Intake Total 360 ml Output Total 450 ml 400 ml Balance -90 ml -400 ml Intake Oral 360 ml Output Urine Total 450 ml 400 ml # Voids 5 Height (Feet): 5 Height (Inches): 5.00 Weight (Pounds): 130 General Appearance: no apparent distress Neck: normal alignment Cardiovascular: normal rate Respiratory/Chest: lungs clear Abdomen: normal bowel sounds Objective Current Medications Medications (Trade) Dose Ordered Sig/Tenzin Route PRN Reason Start Time Stop Time Status Last Admin Dose Admin Acetaminophen (Tylenol) 650 mg Q4H PRN ORAL Temp >100.5 09/16/19 23:00 10/16/19 22:59 Atorvastatin Calcium (Lipitor) 10 mg BEDTIME ORAL 09/17/19 21:00 12/16/19 20:59 09/25/19 20:28 Barium Sulfate (Varibar Honey) 250 ml NOW PRN MC RAD 09/24/19 14:45 09/27/19 14:30 Barium Sulfate (Varibar [place]) 240 ml NOW PRN MC RAD 09/24/19 14:45 09/27/19 14:30 Barium Sulfate (Varibar Pudding) 230 ml NOW PRN MC RAD 09/24/19 14:45 09/27/19 14:30 Carbidopa/Levodopa (Sinemet 25/100) 1 tab THREE TIMES A DAY ORAL 09/17/19 09:00 10/17/19 08:59 09/26/19 09:01 Clonidine HCl (Catapres Tab) 0.1 mg Q2H PRN ORAL For High Blood Pressure 09/21/19 09:15 12/20/19 09:14 09/26/19 04:30 Dextrose (Dextrose 50%) 25 ml Q30M PRN IV Hypoglycemia 09/16/19 23:00 12/15/19 22:59 Dextrose (Dextrose 50%) 50 ml Q30M PRN IV Hypoglycemia 09/16/19 23:00 12/15/19 22:59 Diltiazem HCl (Cardizem) 30 mg BID ORAL 09/21/19 09:15 10/21/19 09:14 09/26/19 09:01 Docusate Sodium (Colace) 100 mg THREE TIMES A DAY ORAL 09/17/19 09:00 10/17/19 08:59 09/26/19 09:01 Escitalopram Oxalate (Lexapro) 10 mg DAILY ORAL 09/17/19 09:00 10/17/19 08:59 09/26/19 09:01 Furosemide (Lasix) 40 mg DAILY ORAL 09/26/19 09:00 10/26/19 08:59 09/26/19 09:01 Insulin Aspart (NovoLOG) BEFORE MEALS AND HS SUBQ 09/17/19 06:30 12/16/19 06:29 09/26/19 05:54 Insulin Aspart (NovoLOG) 6 units NOVOTIAC SUBQ 09/25/19 16:50 12/24/19 16:49 09/26/19 05:54 Insulin Detemir (Levemir) 18 units DAILY SUBQ 09/25/19 15:00 12/24/19 14:59 09/26/19 09:00 Mirtazapine (Remeron) 7.5 mg BEDTIME PRN ORAL INSOMNIA 09/19/19 01:00 12/18/19 00:59 Nateglinide (Starlix) 120 mg THREE TIMES A DAY ORAL 09/20/19 13:00 10/17/19 08:59 09/26/19 09:01 Pantoprazole (Protonix) 40 mg EVERY 12 HOURS ORAL 09/17/19 09:00 10/17/19 08:59 09/26/19 09:01 Marcin Munoz MD Sep 26, 2019 10:04
--- NOTE | 2019-09-26 11:32 | Nephrology Progress Note ---
Assessment/Plan Problem List: (1) MER (acute kidney injury) (2) Dehydration (3) Type 2 diabetes mellitus (4) Anemia (5) UTI (urinary tract infection) Assessment Acute renal failure, most likely dehydration Will watch for underlying chronic kidney disease. Anemia, etiology to be identified Toxic metabolic encephalopathy on presentation Diabetes mellitus [id number] with hemoglobin A1c of 8.9 History of COPD History of pulmonary hypertension History of UTI, evidence of UTI on this admission Patient currently full code however on previous admission was DNR Plan September 25: Breathing in room air. Full code. No labs done today. Will check lab tomorrow. Aim to correct today electrolytes September 24: Today's labs still pending. Continue per consultants. We will aim to correct electrolyte abnormalities. September 23: No labs today. Cardiology note appreciated. Medication reviewed. Will check lab tomorrow. Continue per consultants. September 22: Serum creatinine slightly higher to 1.5 today. Remains full code and remains on Venturi mask. Continue per cardiology management. September 21: Renal parameters stable. Continue per cardiology management. Remains full code and on Venturi mask. Will continue to monitor electrolytes and renal parameters. September 20: Discussed with Dr. Galdamez: Serum creatinine down to 1.3. Troponin I went up. Cardizem started for blood pressure. Patient remains on nonrebreather mask. Continue current management. Previously: Serum creatinine gonsalo to 1.6. This morning's blood sugar 455. White blood cells gonsalo to over 17,000. Continue to treat underlying infection. Continue per ID and pulmonary. Avoid nephrotoxic's. Continue to monitor renal parameters. Stop IV hydration. 1 dose of Lasix IV and 1 dose of potassium chloride p.o. ordered. 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 Monitor renal parameters Monitor electrolytes Keep the blood pressure and blood sugar in check Urine studies Antibiotics as needed Per consultants Subjective ROS Limited/Unobtainable: No Constitutional: Reports: malaise Objective Objective Last 24 Hour Vital Signs Date Time Temp Pulse Resp B/P (MAP) Pulse Ox O2 Delivery O2 Flow Rate FiO2 09/26/19 09:01 77 130/92 09/26/19 08:11 Room Air 09/26/19 08:11 77 09/26/19 08:03 97.5 87 20 130/92 (105) 97 09/26/19 07:54 81 16 96 Room Air 21 6/14/20 07:08 148/79 (102) 09/26/19 04:30 186/78 09/26/19 04:00 72 09/26/19 04:00 97.9 89 20 180/78 (112) 98 09/26/19 00:00 73 09/26/19 00:00 98.2 74 22 140/86 (104) 98 09/25/19 21:22 Venturi Mask 6.0 09/25/19 20:00 78 09/25/19 20:00 96.1 82 24 146/87 (106) 93 09/25/19 19:30 90 18 97 Room Air 21 09/25/19 18:01 100 135/74 09/25/19 15:40 100 09/25/19 15:34 97.7 80 18 135/74 (94) 95 09/25/19 12:00 76 09/25/19 11:56 97.5 77 20 153/73 (99) 91 Intake and Output 09/25/19 09/26/19 19:00 07:00 Intake Total 360 ml Output Total 450 ml 400 ml Balance -90 ml -400 ml Intake Oral 360 ml Output Urine Total 450 ml 400 ml # Voids 5 No labs today Height (Feet): 5 Height (Inches): 5.00 Weight (Pounds): 130 General Appearance: no apparent distress EENT: other - No more rebreathing mask or Venturi mask Cardiovascular: normal rate Respiratory/Chest: decreased breath sounds, other Abdomen: soft José Miguel Calvert MD Sep 26, 2019 11:32
--- NOTE | 2019-09-26 12:37 | Pulmonology Progress Note ---
Subjective ROS Limited/Unobtainable: No Interval Events: Much improved; now on RA Constitutional: Reports: no symptoms HEENT: Repors: no symptoms Respiratory: Reports: shortness of breath Cardiovascular: Reports: no symptoms Gastrointestinal/Abdominal: Reports: no symptoms Allergies: Coded Allergies: No Known Allergies (Unverified , 11/08/15) Objective Last 24 Hour Vital Signs Date Time Temp Pulse Resp B/P (MAP) Pulse Ox O2 Delivery O2 Flow Rate FiO2 09/26/19 11:45 86 09/26/19 11:42 97.7 86 20 145/75 (98) 98 09/26/19 09:01 77 130/92 09/26/19 08:11 Room Air 09/26/19 08:11 77 09/26/19 08:03 97.5 87 20 130/92 (105) 97 09/26/19 07:54 81 16 96 Room Air 21 09/26/19 07:08 148/79 (102) 09/26/19 04:30 186/78 09/26/19 04:00 72 09/26/19 04:00 97.9 89 20 180/78 (112) 98 09/26/19 00:00 73 09/26/19 00:00 98.2 74 22 140/86 (104) 98 09/25/19 21:22 Venturi Mask 6.0 09/25/19 20:00 78 09/25/19 20:00 96.1 82 24 146/87 (106) 93 09/25/19 19:30 90 18 97 Room Air 21 09/25/19 18:01 100 135/74 09/25/19 15:40 100 09/25/19 15:34 97.7 80 18 135/74 (94) 95 Intake and Output 09/25/19 09/26/19 19:00 07:00 Intake Total 360 ml Output Total 450 ml 400 ml Balance -90 ml -400 ml Intake Oral 360 ml Output Urine Total 450 ml 400 ml # Voids 5 General Appearance: no acute distress HEENT: normocephalic Respiratory: chest wall non-tender, decreased breath sounds Cardiovascular: normal peripheral pulses, normal rate Abdomen: normal bowel sounds, soft, non tender Extremities: no cyanosis Current Medications Medications (Trade) Dose Ordered Sig/Tenzin Route PRN Reason Start Time Stop Time Status Last Admin Dose Admin Acetaminophen (Tylenol) 650 mg Q4H PRN ORAL Temp >100.5 09/16/19 23:00 10/16/19 22:59 Atorvastatin Calcium (Lipitor) 10 mg BEDTIME ORAL 09/17/19 21:00 12/16/19 20:59 09/25/19 20:28 Barium Sulfate (Varibar [place]) 250 ml NOW PRN RAD 09/24/19 14:45 09/27/19 14:30 Barium Sulfate (Varibar [place]) 240 ml NOW PRN RAD 09/24/19 14:45 09/27/19 14:30 Barium Sulfate (Varibar [place]) 230 ml NOW PRN RAD 09/24/19 14:45 09/27/19 14:30 Carbidopa/Levodopa (Sinemet 25/) 1 tab THREE TIMES A DAY ORAL 09/17/19 09:00 10/17/19 08:59 09/26/19 09:01 Clonidine HCl (Catapres Tab) 0.1 mg Q2H PRN ORAL For High Blood Pressure 09/21/19 09:15 12/20/19 09:14 09/26/19 04:30 Dextrose (Dextrose 50%) 25 ml Q30M PRN IV Hypoglycemia 09/16/19 23:00 12/15/19 22:59 Dextrose (Dextrose 50%) 50 ml Q30M PRN IV Hypoglycemia 09/16/19 23:00 12/15/19 22:59 Diltiazem HCl (Cardizem) 30 mg BID ORAL 09/21/19 09:15 10/21/19 09:14 09/26/19 09:01 Docusate Sodium (Colace) 100 mg THREE TIMES A DAY ORAL 09/17/19 09:00 10/17/19 08:59 09/26/19 09:01 Escitalopram Oxalate (Lexapro) 10 mg DAILY ORAL 09/17/19 09:00 10/17/19 08:59 09/26/19 09:01 Furosemide (Lasix) 40 mg DAILY ORAL 09/26/19 09:00 10/26/19 08:59 09/26/19 09:01 Insulin Aspart (NovoLOG) BEFORE MEALS AND HS SUBQ 09/17/19 06:30 12/16/19 06:29 09/26/19 11:51 Insulin Aspart (NovoLOG) 6 units NOVOTIAC SUBQ 09/25/19 16:50 12/24/19 16:49 09/26/19 11:51 Insulin Detemir (Levemir) 18 units DAILY SUBQ 09/25/19 15:00 12/24/19 14:59 09/26/19 09:00 Mirtazapine (Remeron) 7.5 mg BEDTIME PRN ORAL INSOMNIA 09/19/19 01:00 12/18/19 00:59 Nateglinide (Starlix) 120 mg THREE TIMES A DAY ORAL 09/20/19 13:00 10/17/19 08:59 09/26/19 09:01 Pantoprazole (Protonix) 40 mg EVERY 12 HOURS ORAL 09/17/19 09:00 10/17/19 08:59 09/26/19 09:01 Assessment/Plan Assessment/Plan IMPRESSION: 1. Hypoxemia. Suspect pulm edema 2. Diabetes mellitus. 3. Decubitus ulcer, sacrum. 4. UTI. 5. Hypertension. 6. Hyperlipidemia. DISCUSSION: Will continue to diurese Has lost 5kg in weight Is I/O negatuive COVID 19 pcr x1 is negative Continue O2 prn Abx for UTI Negative venous duplex lower extremities Dc planning to SNF Valery Lee Omar Syed MD Sep 26, 2019 12:37
--- NOTE | 2019-09-26 13:18 | Hematology/Onc Progress Note ---
Assessment/Plan Assessment/Plan Assessment and Recs: # Anemia of iron deficiency -- hgb remains low, anemia panel reviewed, ferritin in prior was 20 --> consider iron as needed, if low will order ferritin --> cea is 4.9 --> no hemolysis is seen --> r/o gi bleed, gi is on board --> hgb 9.5->9.9->11 # Leukocytosis with Sepsis likely due to uti --> has now improved --> abx: ceftriaxone --> as per Dr. Martinez --> urine cx positive --> wbc 12-->17->13-->13 --> 09/20 cxr bilat infiltrates # Respiratory failure, r/o chf v copd --> diuresis started prn # Ryan on admission --> per renal on ivf --> per Dr. Calvert # Elevated lactic acid level --> sp abx lecquin # Type 2 diabetes mellitus --> acucchecks qac and qhs --> iss, consider endo # Stage I decubitus ulcer sacrum # Dvt ppx scds Appreciate consultation and dw Rn Subjective Cardiovascular: Denies: no symptoms, chest pain, edema, irregular heart rate, lightheadedness, palpitations, syncope, other Respiratory: Denies: no symptoms, cough, shortness of breath, SOB with excertion, SOB at rest, sputum, wheezing, other Genitourinary: Denies: no symptoms, burning, discharge, frequency, flank pain, hematuria, incontinence, pain, urgency, other Endocrine: Denies: no symptoms, excessive sweating, flushing, intolerance to cold, intolerance to heat, increased hunger, increased thirst, increased urine, unexplained weight gain, unexplained weight loss, other Hematologic/Lymphatic: Denies: no symptoms, anemia, easy bleeding, easy bruising, adenopathy, other Allergies: Coded Allergies: No Known Allergies (Unverified , 11/08/15) Subjective 09/18 tele, no acute events, nc, labs pending 09/19 labs are reviewed, no bleeding, wbc 17, on abx on diurestic, ct noted 09/20 tachy, nrb 14L, iv abx, afebrile, labs pending 09/21 cxr w/ bilat infiltrates, vmask, cftx, no distress 09/22 remains on venturi mask, labs noted, cftx per id 09/23 no new changes, no distress, meds reviewed 09/25 in bed, alert, oriented, no bleeding, meds noted Objective Objective Current Medications Medications (Trade) Dose Ordered Sig/Tenzin Route PRN Reason Start Time Stop Time Status Last Admin Dose Admin Acetaminophen (Tylenol) 650 mg Q4H PRN ORAL Temp >100.5 09/16/19 23:00 10/16/19 22:59 Atorvastatin Calcium (Lipitor) 10 mg BEDTIME ORAL 09/17/19 21:00 12/16/19 20:59 09/25/19 20:28 Barium Sulfate (Varibar [place]) 250 ml NOW PRN MC RAD 09/24/19 14:45 09/27/19 14:30 Barium Sulfate (Varibar [place]) 240 ml NOW PRN MC RAD 09/24/19 14:45 09/27/19 14:30 Barium Sulfate (Varibar [place]) 230 ml NOW PRN MC RAD 09/24/19 14:45 09/27/19 14:30 Carbidopa/Levodopa (Sinemet 25/100) 1 tab THREE TIMES A DAY ORAL 09/17/19 09:00 10/17/19 08:59 09/26/19 13:05 Clonidine HCl (Catapres Tab) 0.1 mg Q2H PRN ORAL For High Blood Pressure 09/21/19 09:15 12/20/19 09:14 09/26/19 04:30 Dextrose (Dextrose 50%) 25 ml Q30M PRN IV Hypoglycemia 09/16/19 23:00 12/15/19 22:59 Dextrose (Dextrose 50%) 50 ml Q30M PRN IV Hypoglycemia 09/16/19 23:00 12/15/19 22:59 Diltiazem HCl (Cardizem) 30 mg BID ORAL 09/21/19 09:15 10/21/19 09:14 09/26/19 09:01 Docusate Sodium (Colace) 100 mg THREE TIMES A DAY ORAL 09/17/19 09:00 10/17/19 08:59 09/26/19 13:05 Escitalopram Oxalate (Lexapro) 10 mg DAILY ORAL 09/17/19 09:00 10/17/19 08:59 09/26/19 09:01 Furosemide (Lasix) 40 mg DAILY ORAL 09/26/19 09:00 10/26/19 08:59 09/26/19 09:01 Insulin Aspart (NovoLOG) BEFORE MEALS AND HS SUBQ 09/17/19 06:30 12/16/19 06:29 09/26/19 11:51 Insulin Aspart (NovoLOG) 6 units NOVOTIAC SUBQ 09/25/19 16:50 12/24/19 16:49 09/26/19 11:51 Insulin Detemir (Levemir) 18 units DAILY SUBQ 09/25/19 15:00 12/24/19 14:59 09/26/19 09:00 Mirtazapine (Remeron) 7.5 mg BEDTIME PRN ORAL INSOMNIA 09/19/19 01:00 12/18/19 00:59 Nateglinide (Starlix) 120 mg THREE TIMES A DAY ORAL 09/20/19 13:00 10/17/19 08:59 09/26/19 13:05 Pantoprazole (Protonix) 40 mg EVERY 12 HOURS ORAL 09/17/19 09:00 10/17/19 08:59 09/26/19 09:01 Last 24 Hour Vital Signs Date Time Temp Pulse Resp B/P (MAP) Pulse Ox O2 Delivery O2 Flow Rate FiO2 09/26/19 11:45 86 09/26/19 11:42 97.7 86 20 145/75 (98) 98 09/26/19 09:01 77 130/92 09/26/19 08:11 Room Air 09/26/19 08:11 77 09/26/19 08:03 97.5 87 20 130/92 (105) 97 09/26/19 07:54 81 16 96 Room Air 21 09/26/19 07:08 148/79 (102) 09/26/19 04:30 186/78 09/26/19 04:00 72 09/26/19 04:00 97.9 89 20 180/78 (112) 98 09/26/19 00:00 73 09/26/19 00:00 98.2 74 22 140/86 (104) 98 09/25/19 21:22 Venturi Mask 6.0 09/25/19 20:00 78 09/25/19 20:00 96.1 82 24 146/87 (106) 93 09/25/19 19:30 90 18 97 Room Air 21 09/25/19 18:01 100 135/74 09/25/19 15:40 100 09/25/19 15:34 97.7 80 18 135/74 (94) 95 09/25/19 12:00 76 09/25/19 11:56 97.5 77 20 153/73 (99) 91 09/25/19 10:24 101 20 96 Room Air 21 09/25/19 09:14 102 174/94 09/25/19 08:43 102 09/25/19 08:41 Room Air 09/25/19 08:12 97.7 97 18 174/94 (120) 97 09/25/19 04:00 98.8 82 20 140/87 (104) 96 09/25/19 04:00 87 09/25/19 00:23 84 16 97 Venturi Mask 6.0 35 09/25/19 00:23 84 16 97 Venturi Mask 6.0 35 09/25/19 00:00 80 09/25/19 00:00 98.4 81 20 164/90 (114) 98 09/24/19 22:00 87 152/78 (102) 09/24/19 21:00 Venturi Mask 6.0 09/24/19 20:42 173/92 09/24/19 20:00 79 09/24/19 20:00 98.8 85 18 173/98 (123) 96 09/24/19 16:00 87 09/24/19 16:00 98.1 87 20 146/83 (104) 97 09/24/19 13:49 87 115/76 Intake and Output 09/25/19 09/26/19 19:00 07:00 Intake Total 360 ml Output Total 450 ml 400 ml Balance -90 ml -400 ml Intake Oral 360 ml Output Urine Total 450 ml 400 ml # Voids 5 Labs Test 09/25/19 07:35 White Blood Count 13.0 K/UL (4.8-10.8) Red Blood Count 3.84 M/UL (4.20-5.40) Hemoglobin 11.5 G/DL (12.0-16.0) Hematocrit 36.0 % (37.0-47.0) Mean Corpuscular Volume 94 FL (80-99) Mean Corpuscular Hemoglobin 30.0 PG (27.0-31.0) Mean Corpuscular Hemoglobin Concent 32.0 G/DL (32.0-36.0) Red Cell Distribution Width 11.3 % (11.6-14.8) Platelet Count 451 K/UL (150-450) Mean Platelet Volume 5.2 FL (6.5-10.1) Neutrophils (%) (Auto) % (45.0-75.0) Lymphocytes (%) (Auto) % (20.0-45.0) Monocytes (%) (Auto) % (1.0-10.0) Eosinophils (%) (Auto) % (0.0-3.0) Basophils (%) (Auto) % (0.0-2.0) Differential Total Cells Counted 100 Neutrophils % (Manual) 68 % (45-75) Lymphocytes % (Manual) 25 % (20-45) Monocytes % (Manual) 6 % (1-10) Eosinophils % (Manual) 1 % (0-3) Basophils % (Manual) 0 % (0-2) Band Neutrophils 0 % (0-8) Platelet Estimate Adequate Platelet Morphology Normal Hypochromasia 1+ Sodium Level 148 MMOL/L (136-145) Potassium Level 3.5 MMOL/L (3.5-5.1) Chloride Level 104 MMOL/L (98-107) Carbon Dioxide Level 37 MMOL/L (21-32) Anion Gap 7 mmol/L (5-15) Blood Urea Nitrogen 41 mg/dL (7-18) Creatinine 1.7 MG/DL (0.55-1.30) Estimat Glomerular Filtration Rate 29.9 mL/min (>60) Glucose Level 359 MG/DL (74-106) Calcium Level 9.5 MG/DL (8.5-10.1) Phosphorus Level 3.5 MG/DL (2.5-4.9) Magnesium Level 2.7 MG/DL (1.8-2.4) Total Bilirubin 0.2 MG/DL (0.2-1.0) Aspartate Amino Transf (AST/SGOT) 29 U/L (15-37) Alanine Aminotransferase (ALT/SGPT) 30 U/L (12-78) Alkaline Phosphatase 56 U/L (46-116) C-Reactive Protein, Quantitative 1.6 mg/dL (0.00-0.90) Pro-B-Type Natriuretic Peptide 2033 pg/mL (0-125) Total Protein 8.4 G/DL (6.4-8.2) Albumin 3.3 G/DL (3.4-5.0) Globulin 5.1 g/dL Albumin/Globulin Ratio 0.6 (1.0-2.7) Height (Feet): 5 Height (Inches): 5.00 Weight (Pounds): 130 Objective Physical Exam Vitals: reviewed General: alert, non-toxic, thin, other - Frail, Chronically Ill Head: normocephalic, atraumatic Heent: bilateral eye normal inspection, bilateral eye PERRl Respiratory: lungs clear, normal breath sounds, vmask++ Cardiovascular: regular rate, rhythm, no edema Gi: non tender, soft, decreased bowel sounds Gu: no CVA tenderness Msk: no calf tenderness, + Atrophy Neuro: alert, sensory intact, w motor weakness Psychiatric: mood/affect normal Skin: ++ Danie Jackson MD Sep 26, 2019 13:18
--- NOTE | 2019-09-26 13:54 | Infectious Diseases Prog Note ---
Assessment/Plan Assessment/Plan IMPRESSION: Sepsis resolved Pneumonia treated E. coli UTI, treated Diabetes mellitus with hyperglycemia, COPD, Hypertension, pulmonary hypertension, Diastolic CHF, Parkinson disease, anemia, major depression. RECOMMENDATION: Observe off antibiotic Subjective ROS Limited/Unobtainable: No Constitutional: Reports: no symptoms Respiratory: Reports: no symptoms Cardiovascular: Reports: no symptoms Gastrointestinal/Abdominal: Reports: no symptoms Genitourinary: Reports: no symptoms Allergies: Coded Allergies: No Known Allergies (Unverified , 11/08/15) Objective Vital Signs Last 24 Hour Vital Signs Date Time Temp Pulse Resp B/P (MAP) Pulse Ox O2 Delivery O2 Flow Rate FiO2 09/26/19 11:45 86 09/26/19 11:42 97.7 86 20 145/75 (98) 98 09/26/19 09:01 77 130/92 09/26/19 08:11 Room Air 09/26/19 08:11 77 09/26/19 08:03 97.5 87 20 130/92 (105) 97 09/26/19 07:54 81 16 96 Room Air 21 09/26/19 07:08 148/79 (102) 09/26/19 04:30 186/78 09/26/19 04:00 72 09/26/19 04:00 97.9 89 20 180/78 (112) 98 09/26/19 00:00 73 09/26/19 00:00 98.2 74 22 140/86 (104) 98 09/25/19 21:22 Venturi Mask 6.0 09/25/19 20:00 78 09/25/19 20:00 96.1 82 24 146/87 (106) 93 09/25/19 19:30 90 18 97 Room Air 21 09/25/19 18:01 100 135/74 09/25/19 15:40 100 09/25/19 15:34 97.7 80 18 135/74 (94) 95 Height (Feet): 5 Height (Inches): 5.00 Weight (Pounds): 130 General Appearance: no acute distress HEENT: mucous membranes moist Respiratory/Chest: lungs clear Cardiovascular: normal rate Abdomen: soft, non tender Extremities: no edema Neurologic/Psychiatric: alert, responsive, other - tremor Current Medications Medications (Trade) Dose Ordered Sig/Tenzin Route PRN Reason Start Time Stop Time Status Last Admin Dose Admin Acetaminophen (Tylenol) 650 mg Q4H PRN ORAL Temp >100.5 09/16/19 23:00 10/16/19 22:59 Atorvastatin Calcium (Lipitor) 10 mg BEDTIME ORAL 09/17/19 21:00 12/16/19 20:59 09/25/19 20:28 Barium Sulfate (Varibar [place]) 250 ml NOW PRN MC RAD 09/24/19 14:45 09/27/19 14:30 Barium Sulfate (Varibar [place]) 240 ml NOW PRN MC RAD 09/24/19 14:45 09/27/19 14:30 Barium Sulfate (Varibar [place]ud[place]) 230 ml NOW PRN MC RAD 09/24/19 14:45 09/27/19 14:30 Carbidopa/Levodopa (Sinemet 25/100) 1 tab THREE TIMES A DAY ORAL 09/17/19 09:00 10/17/19 08:59 09/26/19 13:05 Clonidine HCl (Catapres Tab) 0.1 mg Q2H PRN ORAL For High Blood Pressure 09/21/19 09:15 12/20/19 09:14 09/26/19 04:30 Dextrose (Dextrose 50%) 25 ml Q30M PRN IV Hypoglycemia 09/16/19 23:00 12/15/19 22:59 Dextrose (Dextrose 50%) 50 ml Q30M PRN IV Hypoglycemia 09/16/19 23:00 12/15/19 22:59 Diltiazem HCl (Cardizem) 30 mg BID ORAL 09/21/19 09:15 10/21/19 09:14 09/26/19 09:01 Docusate Sodium (Colace) 100 mg THREE TIMES A DAY ORAL 09/17/19 09:00 10/17/19 08:59 09/26/19 13:05 Escitalopram Oxalate (Lexapro) 10 mg DAILY ORAL 09/17/19 09:00 10/17/19 08:59 09/26/19 09:01 Furosemide (Lasix) 40 mg DAILY ORAL 09/26/19 09:00 10/26/19 08:59 09/26/19 09:01 Insulin Aspart (NovoLOG) BEFORE MEALS AND HS SUBQ 09/17/19 06:30 12/16/19 06:29 09/26/19 11:51 Insulin Aspart (NovoLOG) 6 units NOVOTIAC SUBQ 09/25/19 16:50 12/24/19 16:49 09/26/19 11:51 Insulin Detemir (Levemir) 18 units DAILY SUBQ 09/25/19 15:00 12/24/19 14:59 09/26/19 09:00 Mirtazapine (Remeron) 7.5 mg BEDTIME PRN ORAL INSOMNIA 09/19/19 01:00 12/18/19 00:59 Nateglinide (Starlix) 120 mg THREE TIMES A DAY ORAL 09/20/19 13:00 10/17/19 08:59 09/26/19 13:05 Pantoprazole (Protonix) 40 mg EVERY 12 HOURS ORAL 09/17/19 09:00 10/17/19 08:59 09/26/19 09:01 Rogelio Martinez MD Sep 26, 2019 13:54
[2019-09-26] MEDS ORDERED: Tubing IV Secondary IV ONE (17:56)
[2019-09-26] MEDS ORDERED: NS 500ML ONE (17:56)
--- NOTE | 2019-09-26 19:17 | NUR ---
NURSE NOTES: Received patient in bed, awake ,alert , oriented x3, on room air, IV site is clean dry and intact. Call light is within reach, bed is lowered, locked, alarm is on, will continue to monitor for fever, comfort and safety.
--- NOTE | 2019-09-26 20:12 | General Progress Note ---
Assessment/Plan Problem List: (1) Severe sepsis ICD Codes: A41.9 - Sepsis, unspecified organism; R65.20 - Severe sepsis without septic shock SNOMED: 32177104 (2) Constipation ICD Codes: K59.00 - Constipation, unspecified SNOMED: 24316107 (3) Cholelithiasis ICD Codes: K80.20 - Calculus of gallbladder without cholecystitis without obstruction SNOMED: 656101123 (4) Pulmonary hypertension ICD Codes: I27.20 - Pulmonary hypertension, unspecified SNOMED: 44849738 (5) Dehydration ICD Codes: E86.0 - Dehydration SNOMED: 08477712 (6) UTI (urinary tract infection) ICD Codes: N39.0 - Urinary tract infection, site not specified SNOMED: 43335146 (7) Encephalopathy ICD Codes: G93.40 - Encephalopathy, unspecified SNOMED: 05634180, 143265023 (8) Anemia ICD Codes: D64.9 - Anemia, unspecified SNOMED: 348581895 (9) Hyperlipidemia associated with type 2 diabetes mellitus ICD Codes: E11.69 - Type 2 diabetes mellitus with other specified complication ; E78.5 - Hyperlipidemia, unspecified SNOMED: 827707547, 177533563284 (10) Type 2 diabetes mellitus ICD Codes: E11.9 - Type 2 diabetes mellitus without complications SNOMED: 73430809, 953414490 Status: progressing Assessment/Plan: cleared by pulmonary so dc pt back to snf resp insuff copd chf on RA Subjective ROS Limited/Unobtainable: Yes Allergies: Coded Allergies: No Known Allergies (Unverified , 11/08/15) Objective Last 24 Hour Vital Signs Date Time Temp Pulse Resp B/P (MAP) Pulse Ox O2 Delivery O2 Flow Rate FiO2 09/26/19 19:10 99.9 09/26/19 17:56 81 159/91 09/26/19 16:00 100.3 81 18 159/91 (113) 96 09/26/19 15:18 83 09/26/19 11:45 86 09/26/19 11:42 97.7 86 20 145/75 (98) 98 09/26/19 09:01 77 130/92 09/26/19 08:11 Room Air 09/26/19 08:11 77 09/26/19 08:03 97.5 87 20 130/92 (105) 97 09/26/19 07:54 81 16 96 Room Air 21 09/26/19 07:08 148/79 (102) 09/26/19 04:30 186/78 09/26/19 04:00 72 09/26/19 04:00 97.9 89 20 180/78 (112) 98 09/26/19 00:00 73 09/26/19 00:00 98.2 74 22 140/86 (104) 98 09/25/19 21:22 Venturi Mask 6.0 Intake and Output 09/25/19 09/26/19 19:00 07:00 Intake Total 360 ml Output Total 450 ml 400 ml Balance -90 ml -400 ml Intake Oral 360 ml Output Urine Total 450 ml 400 ml # Voids 5 Height (Feet): 5 Height (Inches): 5.00 Weight (Pounds): 130 Amelie Rios MD Sep 26, 2019 20:12
--- NOTE | 2019-09-26 21:52 | Psych Consult Progress Note ---
Psychiatry Progress Note Psychiatry Progress Note Medications Current Medications Medications (Trade) Dose Ordered Sig/Tenzin Route PRN Reason Start Time Stop Time Status Last Admin Dose Admin Acetaminophen (Tylenol) 650 mg Q4H PRN ORAL Temp >100.5 09/16/19 23:00 10/16/19 22:59 09/26/19 17:57 Atorvastatin Calcium (Lipitor) 10 mg BEDTIME ORAL 09/17/19 21:00 12/16/19 20:59 09/26/19 20:31 Barium Sulfate (Varibar Honey) 250 ml NOW PRN MC RAD 09/24/19 14:45 09/27/19 14:30 Barium Sulfate (Varibar [place]) 240 ml NOW PRN MC RAD 09/24/19 14:45 09/27/19 14:30 Barium Sulfate (Varibar Pudding) 230 ml NOW PRN MC RAD 09/24/19 14:45 09/27/19 14:30 Carbidopa/Levodopa (Sinemet 25/100) 1 tab THREE TIMES A DAY ORAL 09/17/19 09:00 10/17/19 08:59 09/26/19 17:56 Clonidine HCl (Catapres Tab) 0.1 mg Q2H PRN ORAL For High Blood Pressure 09/21/19 09:15 12/20/19 09:14 09/26/19 04:30 Dextrose (Dextrose 50%) 25 ml Q30M PRN IV Hypoglycemia 09/16/19 23:00 12/15/19 22:59 Dextrose (Dextrose 50%) 50 ml Q30M PRN IV Hypoglycemia 09/16/19 23:00 12/15/19 22:59 Diltiazem HCl (Cardizem) 30 mg BID ORAL 09/21/19 09:15 10/21/19 09:14 09/26/19 17:56 Docusate Sodium (Colace) 100 mg THREE TIMES A DAY ORAL 09/17/19 09:00 10/17/19 08:59 09/26/19 17:56 Escitalopram Oxalate (Lexapro) 10 mg DAILY ORAL 09/17/19 09:00 10/17/19 08:59 09/26/19 09:01 Furosemide (Lasix) 40 mg DAILY ORAL 09/26/19 09:00 10/26/19 08:59 09/26/19 09:01 Insulin Aspart (NovoLOG) BEFORE MEALS AND HS SUBQ 09/17/19 06:30 12/16/19 06:29 09/26/19 21:18 Insulin Aspart (NovoLOG) 6 units NOVOTIAC SUBQ 09/25/19 16:50 12/24/19 16:49 09/26/19 11:51 Insulin Detemir (Levemir) 18 units DAILY SUBQ 09/25/19 15:00 12/24/19 14:59 09/26/19 09:00 Mirtazapine (Remeron) 7.5 mg BEDTIME PRN ORAL INSOMNIA 09/19/19 01:00 12/18/19 00:59 Nateglinide (Starlix) 120 mg THREE TIMES A DAY ORAL 09/20/19 13:00 10/17/19 08:59 09/26/19 17:57 Pantoprazole (Protonix) 40 mg EVERY 12 HOURS ORAL 09/17/19 09:00 10/17/19 08:59 09/26/19 20:31 Neurological/Psychiatric: Reports: anxiety, depressed, emotional problems Allergies: Coded Allergies: No Known Allergies (Unverified , 11/08/15) Objective Data Height (Feet): 5 Height (Inches): 5.00 Weight (Pounds): 130 General Appearance: WD/WN, no apparent distress, alert, alert oriented x3 Appearance: no abnormalities noted Behavior Mannerisms: good eye contact Additional Comments: alert and oriented times self. Mood is anxious. Affect is flat. Thought process, there is a paucity of thought content. Thought content, no suicidal or homicidal ideation. Cognition is impaired. Insight and judgment are impaired. Assessment/Plan Status: progressing Assessment/Plan: alert and oriented times self. Mood is anxious. Affect is flat. Thought process, there is a paucity of thought content. Thought content, no suicidal or homicidal ideation. Cognition is impaired. Insight and judgment are impaired. ASSESSMENT: [place] Acute encephalopathy. Major depressive disorder. Anxiety disorder. PLAN: 1. Lexapro 10 mg in the morning 2. remeron 7.5 mg po qhs Stephanie Ybarra MD Sep 26, 2019 21:52
[2019-09-27] VITALS: BP 141/74
[2019-09-27 03:55] VITALS: BP 135/79
[2019-09-27] MEDS: NovoLOG Insulin Flexpen SUBQ SCH ×4 (06:14→11:36)
--- NOTE | 2019-09-27 06:36 | General Progress Note ---
Assessment/Plan Problem List: (1) Type 2 diabetes mellitus ICD Codes: E11.9 - Type 2 diabetes mellitus without complications SNOMED: 92131104, 097331880 (2) Hyperlipidemia associated with type 2 diabetes mellitus ICD Codes: E11.69 - Type 2 diabetes mellitus with other specified complication ; E78.5 - Hyperlipidemia, unspecified SNOMED: 411757464, 651594491158 (3) Anemia ICD Codes: D64.9 - Anemia, unspecified SNOMED: 957282688 Status: progressing Assessment/Plan: increase Levemir 18 to 24 units qam continue Novolog 6 units ac tid continue Novolog sliding scale ac / hs continue Starlix 120 mg ac tid Subjective Allergies: Coded Allergies: No Known Allergies (Unverified , 11/08/15) Subjective events noted fasting glucose is elevated Item Value Date Time Bedside Blood Glucose 267 mg/dl H 09/27/19 0616 Bedside Blood Glucose 286 mg/dl H 09/26/19 2118 Bedside Blood Glucose 109 mg/dl 09/26/19 1644 Bedside Blood Glucose 380 mg/dl H 09/26/19 1151 Bedside Blood Glucose 193 mg/dl H 09/26/19 0900 Bedside Blood Glucose 193 mg/dl H 09/26/19 0554 Objective Last 24 Hour Vital Signs Date Time Temp Pulse Resp B/P (MAP) Pulse Ox O2 Delivery O2 Flow Rate FiO2 09/27/19 04:06 75 09/27/19 03:55 97.9 84 18 135/79 (97) 95 09/27/19 00:00 96.7 78 18 141/74 (96) 98 09/27/19 00:00 71 09/26/19 21:40 Venturi Mask 6.0 09/26/19 20:00 98.4 78 18 137/80 (99) 95 09/26/19 20:00 77 09/26/19 19:10 99.9 09/26/19 17:56 81 159/91 09/26/19 16:00 100.3 81 18 159/91 (113) 96 09/26/19 15:18 83 09/26/19 11:45 86 09/26/19 11:42 97.7 86 20 145/75 (98) 98 09/26/19 09:01 77 130/92 09/26/19 08:11 Room Air 09/26/19 08:11 77 09/26/19 08:03 97.5 87 20 130/92 (105) 97 09/26/19 07:54 81 16 96 Room Air 21 09/26/19 07:08 148/79 (102) Intake and Output 09/26/19 09/27/19 19:00 07:00 Intake Total 840 ml Balance 840 ml Intake Oral 840 ml # Voids 3 Height (Feet): 5 Height (Inches): 5.00 Weight (Pounds): 130 General Appearance: no apparent distress Neck: normal alignment Cardiovascular: normal rate Respiratory/Chest: lungs clear Abdomen: normal bowel sounds Objective Current Medications Medications (Trade) Dose Ordered Sig/Tenzin Route PRN Reason Start Time Stop Time Status Last Admin Dose Admin Acetaminophen (Tylenol) 650 mg Q4H PRN ORAL Temp >100.5 09/16/19 23:00 10/16/19 22:59 09/26/19 17:57 Atorvastatin Calcium (Lipitor) 10 mg BEDTIME ORAL 09/17/19 21:00 12/16/19 20:59 09/26/19 20:31 Barium Sulfate (Varibar Honey) 250 ml NOW PRN MC RAD 09/24/19 14:45 09/27/19 14:30 Barium Sulfate (Varibar [place]) 240 ml NOW PRN MC RAD 09/24/19 14:45 09/27/19 14:30 Barium Sulfate (Varibar Pudding) 230 ml NOW PRN MC RAD 09/24/19 14:45 09/27/19 14:30 Carbidopa/Levodopa (Sinemet 25/100) 1 tab THREE TIMES A DAY ORAL 09/17/19 09:00 10/17/19 08:59 09/26/19 17:56 Clonidine HCl (Catapres Tab) 0.1 mg Q2H PRN ORAL For High Blood Pressure 09/21/19 09:15 12/20/19 09:14 09/26/19 04:30 Dextrose (Dextrose 50%) 25 ml Q30M PRN IV Hypoglycemia 09/16/19 23:00 12/15/19 22:59 Dextrose (Dextrose 50%) 50 ml Q30M PRN IV Hypoglycemia 09/16/19 23:00 12/15/19 22:59 Diltiazem HCl (Cardizem) 30 mg BID ORAL 09/21/19 09:15 7/9/20 09:14 09/26/19 17:56 Docusate Sodium (Colace) 100 mg THREE TIMES A DAY ORAL 09/17/19 09:00 10/17/19 08:59 09/26/19 17:56 Escitalopram Oxalate (Lexapro) 10 mg DAILY ORAL 09/17/19 09:00 10/17/19 08:59 09/26/19 09:01 Furosemide (Lasix) 40 mg DAILY ORAL 09/26/19 09:00 10/26/19 08:59 09/26/19 09:01 Insulin Aspart (NovoLOG) BEFORE MEALS AND HS SUBQ 09/17/19 06:30 12/16/19 06:29 09/27/19 06:14 Insulin Aspart (NovoLOG) 6 units NOVOTIAC SUBQ 09/25/19 16:50 12/24/19 16:49 09/27/19 06:15 Insulin Detemir (Levemir) 18 units DAILY SUBQ 09/25/19 15:00 12/24/19 14:59 09/26/19 09:00 Mirtazapine (Remeron) 7.5 mg BEDTIME PRN ORAL INSOMNIA 09/19/19 01:00 12/18/19 00:59 Nateglinide (Starlix) 120 mg THREE TIMES A DAY ORAL 09/20/19 13:00 10/17/19 08:59 09/26/19 17:57 Pantoprazole (Protonix) 40 mg EVERY 12 HOURS ORAL 09/17/19 09:00 10/17/19 08:59 09/26/19 20:31 Marcin Munoz MD Sep 27, 2019 06:36
[2019-09-27 07:38] LABS: BASOPHILS % (AUTO) 0.8 % (0.0-2.0); EOSINOPHILS % (AUTO) 2.7 % (0.0-3.0); HEMATOCRIT 38.1 % (37.0-47.0); HEMOGLOBIN 11.6 G/DL (12.0-16.0); LYMPHOCYTES % (AUTO) 28.5 % (20.0-45.0); MEAN CORPUSCULAR VOLUME 99 FL (80-99); MONOCYTES % (AUTO) 6.4 % (1.0-10.0); NEUTROPHILS % (AUTO) 61.6 % (45.0-75.0); PLATELET COUNT 452 K/UL (150-450); RED BLOOD COUNT 3.85 M/UL (4.20-5.40); RED CELL DISTRIBUTION WIDTH 13.2 % (11.6-14.8); WHITE BLOOD COUNT 12.8 K/UL (4.8-10.8)
--- NOTE | 2019-09-27 07:42 | NUR ---
NURSE NOTES: Received patient in bed awake. No SOB or acute distress. IV line intact. Purewick on. HOB elevated. Bed locked in lowest position. Bed alarm on. Call light within reach. Will continue plan of care.
[2019-09-27 08:00] VITALS: BP 142/82
[2019-09-27 08:17] LABS: ALANINE AMINOTRANSFERASE 25 U/L (12-78); ALBUMIN 3.2 G/DL (3.4-5.0); ALBUMIN/GLOBULIN RATIO 0.7 (1.0-2.7); ALKALINE PHOSPHATASE 57 U/L (46-116); ANION GAP 8 mmol/L (5-15); ASPARTATE AMINO TRANSFERASE 43 U/L (15-37); BILIRUBIN,TOTAL 0.2 MG/DL (0.2-1.0); BLOOD UREA NITROGEN 35 mg/dL (7-18); CARBON DIOXIDE 35 MMOL/L (21-32); CHLORIDE 103 MMOL/L (98-107); CREATININE 1.4 MG/DL (0.55-1.30); PHOSPHORUS 3.9 MG/DL (2.5-4.9); POTASSIUM 3.2 MMOL/L (3.5-5.1); SODIUM 146 MMOL/L (136-145)
[2019-09-27] MEDS: Levodopa/Carbidopa 25/100 tab ORAL SCH ×2 (08:57→12:35)
[2019-09-27] MEDS: dilTIAZem HCl 30mg tab ORAL SCH (08:57)
[2019-09-27] MEDS: Docusate 100mg cap ORAL SCH ×2 (08:57→12:35)
[2019-09-27] MEDS: Furosemide 40mg tab ORAL SCH (08:57)
[2019-09-27] MEDS ORDERED: Levemir Flexpen SUBQ SCH (09:00)
[2019-09-27] MEDS ORDERED: MIRTAZAPINE7.5 MG ORAL (09:09)
[2019-09-27] MEDS ORDERED: LEXAPRO10 MG ORAL (09:13)
[2019-09-27] MEDS: Sodium Chloride for KCL Premix x 2hrs IV SCH (09:30)
--- NOTE | 2019-09-27 10:02 | NUR ---
*-*DISCHARGE PLANNING*-* PATIENT ENNIS BEEN REFERRED BACK TO: [facility] P: [phone]
--- NOTE | 2019-09-27 10:04 | NUR ---
*-*DISCHARGE PLANNING*-* PATIENT HAS BEEN ACCEPTED AND WILL BE DISCHARGED BACK TO: [facility] P: [phone] ROOM# 14.A SKILLED [facility] SET FOR WILL CALL S/W MAXINE [id number]
--- NOTE | 2019-09-27 10:06 | Hematology/Onc Progress Note ---
Assessment/Plan Assessment/Plan Assessment and Recs: # Anemia of iron deficiency -- hgb remains low, anemia panel reviewed, ferritin in prior was 20 --> consider iron as needed, if low will order ferritin --> cea is 4.9 --> no hemolysis is seen --> r/o gi bleed, gi is on board --> hgb 9.5->9.9->11 # Leukocytosis with Sepsis likely due to uti --> has now improved --> abx: ceftriaxone --> as per Dr. Martinez --> urine cx positive --> wbc 12-->17->13-->13 --> 09/20 cxr bilat infiltrates # Respiratory failure, r/o chf v copd --> diuresis started prn # Ryan on admission --> per renal on ivf --> per Dr. Calvert # Elevated lactic acid level --> sp abx lecquin # Type 2 diabetes mellitus --> acucchecks qac and qhs --> iss, consider endo # Stage I decubitus ulcer sacrum # Dvt ppx --> lovenox sq Appreciate consultation and dw Rn Subjective Constitutional: Denies: no symptoms, chills, fever, malaise, weakness, other HEENT: Denies: no symptoms, eye pain, blurred vision, tearing, double vision, ear pain, ear discharge, nose pain, nose congestion, throat pain, throat swelling, mouth pain, mouth swelling, other Cardiovascular: Denies: no symptoms, chest pain, edema, irregular heart rate, lightheadedness, palpitations, syncope, other Respiratory: Denies: no symptoms, cough, shortness of breath, SOB with excertion, SOB at rest, sputum, wheezing, other Gastrointestinal/Abdominal: Denies: no symptoms, abdomen distended, abdominal pain, black stools, tarry stools, blood in stool, constipated, diarrhea, difficulty swallowing, nausea, poor appetite, poor fluid intake, rectal bleeding , vomiting, other Genitourinary: Denies: no symptoms, burning, discharge, frequency, flank pain, hematuria, incontinence, pain, urgency, other Neurologic/Psychiatric: Denies: no symptoms, anxiety, depressed, emotional problems, headache, numbness, paresthesia, pre-existing deficit, seizure, tingling, tremors, weakness, other Endocrine: Denies: no symptoms, excessive sweating, flushing, intolerance to cold, intolerance to heat, increased hunger, increased thirst, increased urine, unexplained weight gain, unexplained weight loss, other Hematologic/Lymphatic: Denies: no symptoms, anemia, easy bleeding, easy bruising, adenopathy, other Allergies: Coded Allergies: No Known Allergies (Unverified , 11/08/15) Subjective 09/18 tele, no acute events, nc, labs pending 09/19 labs are reviewed, no bleeding, wbc 17, on abx on diurestic, ct noted 09/20 tachy, nrb 14L, iv abx, afebrile, labs pending 09/21 cxr w/ bilat infiltrates, vmask, cftx, no distress 09/22 remains on venturi mask, labs noted, cftx per id 09/23 no new changes, no distress, meds reviewed 09/25 in bed, alert, oriented, no bleeding, meds noted 09/26 in bed, alert, no bleeding, labs noted, no night sweats Objective Objective Current Medications Medications (Trade) Dose Ordered Sig/Tenzin Route PRN Reason Start Time Stop Time Status Last Admin Dose Admin Acetaminophen (Tylenol) 650 mg Q4H PRN ORAL Temp >100.5 09/16/19 23:00 10/16/19 22:59 09/26/19 17:57 Atorvastatin Calcium (Lipitor) 10 mg BEDTIME ORAL 09/17/19 21:00 12/16/19 20:59 09/26/19 20:31 Barium Sulfate (Varibar Honey) 250 ml NOW PRN MC RAD 09/24/19 14:45 09/27/19 14:30 Barium Sulfate (Varibar [place]) 240 ml NOW PRN MC RAD 09/24/19 14:45 09/27/19 14:30 Barium Sulfate (Varibar Pudding) 230 ml NOW PRN MC RAD 09/24/19 14:45 09/27/19 14:30 Carbidopa/Levodopa (Sinemet 25/100) 1 tab THREE TIMES A DAY ORAL 09/17/19 09:00 10/17/19 08:59 09/27/19 08:57 Clonidine HCl (Catapres Tab) 0.1 mg Q2H PRN ORAL For High Blood Pressure 09/21/19 09:15 12/20/19 09:14 09/26/19 04:30 Dextrose (Dextrose 50%) 25 ml Q30M PRN IV Hypoglycemia 09/16/19 23:00 12/15/19 22:59 Dextrose (Dextrose 50%) 50 ml Q30M PRN IV Hypoglycemia 09/16/19 23:00 12/15/19 22:59 Diltiazem HCl (Cardizem) 30 mg BID ORAL 09/21/19 09:15 10/21/19 09:14 09/27/19 08:57 Docusate Sodium (Colace) 100 mg THREE TIMES A DAY ORAL 09/17/19 09:00 10/17/19 08:59 09/27/19 08:57 Escitalopram Oxalate (Lexapro) 10 mg DAILY ORAL 09/17/19 09:00 10/17/19 08:59 09/27/19 08:57 Furosemide (Lasix) 40 mg DAILY ORAL 09/26/19 09:00 10/26/19 08:59 09/27/19 08:57 Insulin Aspart (NovoLOG) BEFORE MEALS AND HS SUBQ 09/17/19 06:30 12/16/19 06:29 09/27/19 06:14 Insulin Aspart (NovoLOG) 6 units NOVOTIAC SUBQ 09/25/19 16:50 12/24/19 16:49 09/27/19 06:15 Insulin Detemir (Levemir) 24 units DAILY SUBQ 09/27/19 09:00 12/24/19 14:59 09/27/19 08:59 Mirtazapine (Remeron) 7.5 mg BEDTIME PRN ORAL INSOMNIA 09/19/19 01:00 12/18/19 00:59 Nateglinide (Starlix) 120 mg THREE TIMES A DAY ORAL 09/20/19 13:00 10/17/19 08:59 09/27/19 08:56 Pantoprazole (Protonix) 40 mg EVERY 12 HOURS ORAL 09/17/19 09:00 10/17/19 08:59 09/27/19 08:57 Potassium Chloride 100 ml @ 100 mls/hr Q1H IVPB 09/27/19 09:30 09/27/19 11:29 09/27/19 09:39 Sodium Chloride 200 ml @ 100 mls/hr Q2H IV 09/27/19 09:30 09/27/19 11:29 Last 24 Hour Vital Signs Date Time Temp Pulse Resp B/P (MAP) Pulse Ox O2 Delivery O2 Flow Rate FiO2 09/27/19 08:57 92 142/82 09/27/19 08:00 97.5 92 20 142/82 (102) 95 09/27/19 04:06 75 09/27/19 03:55 97.9 84 18 135/79 (97) 95 09/27/19 00:00 96.7 78 18 141/74 (96) 98 09/27/19 00:00 71 09/26/19 21:40 Venturi Mask 6.0 09/26/19 20:00 98.4 78 18 137/80 (99) 95 09/26/19 20:00 77 09/26/19 19:10 99.9 09/26/19 17:56 81 159/91 09/26/19 16:00 100.3 81 18 159/91 (113) 96 09/26/19 15:18 83 09/26/19 11:45 86 09/26/19 11:42 97.7 86 20 145/75 (98) 98 09/26/19 09:01 77 130/92 09/26/19 08:11 Room Air 09/26/19 08:11 77 09/26/19 08:03 97.5 87 20 130/92 (105) 97 09/26/19 07:54 81 16 96 Room Air 21 09/26/19 07:08 148/79 (102) 09/26/19 04:30 186/78 09/26/19 04:00 72 09/26/19 04:00 97.9 89 20 180/78 (112) 98 09/26/19 00:00 73 09/26/19 00:00 98.2 74 22 140/86 (104) 98 09/25/19 21:22 Venturi Mask 6.0 09/25/19 20:00 78 09/25/19 20:00 96.1 82 24 146/87 (106) 93 09/25/19 19:30 90 18 97 Room Air 21 09/25/19 18:01 100 135/74 09/25/19 15:40 100 09/25/19 15:34 97.7 80 18 135/74 (94) 95 09/25/19 12:00 76 09/25/19 11:56 97.5 77 20 153/73 (99) 91 09/25/19 10:24 101 20 96 Room Air 21 Intake and Output 09/26/19 09/27/19 19:00 07:00 Intake Total 840 ml Balance 840 ml Intake Oral 840 ml # Voids 3 Labs Test 09/25/19 07:35 09/27/19 06:10 White Blood Count 13.0 K/UL (4.8-10.8) 12.8 K/UL (4.8-10.8) Red Blood Count 3.84 M/UL (4.20-5.40) 3.85 M/UL (4.20-5.40) Hemoglobin 11.5 G/DL (12.0-16.0) 11.6 G/DL (12.0-16.0) Hematocrit 36.0 % (37.0-47.0) 38.1 % (37.0-47.0) Mean Corpuscular Volume 94 FL (80-99) 99 FL (80-99) Mean Corpuscular Hemoglobin 30.0 PG (27.0-31.0) 30.0 PG (27.0-31.0) Mean Corpuscular Hemoglobin Concent 32.0 G/DL (32.0-36.0) 30.4 G/DL (32.0-36.0) Red Cell Distribution Width 11.3 % (11.6-14.8) 13.2 % (11.6-14.8) Platelet Count 451 K/UL (150-450) 452 K/UL (150-450) Mean Platelet Volume 5.2 FL (6.5-10.1) 5.4 FL (6.5-10.1) Neutrophils (%) (Auto) % (45.0-75.0) 61.6 % (45.0-75.0) Lymphocytes (%) (Auto) % (20.0-45.0) 28.5 % (20.0-45.0) Monocytes (%) (Auto) % (1.0-10.0) 6.4 % (1.0-10.0) Eosinophils (%) (Auto) % (0.0-3.0) 2.7 % (0.0-3.0) Basophils (%) (Auto) % (0.0-2.0) 0.8 % (0.0-2.0) Differential Total Cells Counted 100 Neutrophils % (Manual) 68 % (45-75) Lymphocytes % (Manual) 25 % (20-45) Monocytes % (Manual) 6 % (1-10) Eosinophils % (Manual) 1 % (0-3) Basophils % (Manual) 0 % (0-2) Band Neutrophils 0 % (0-8) Platelet Estimate Adequate Platelet Morphology Normal Hypochromasia 1+ Sodium Level 148 MMOL/L (136-145) 146 MMOL/L (136-145) Potassium Level 3.5 MMOL/L (3.5-5.1) 3.2 MMOL/L (3.5-5.1) Chloride Level 104 MMOL/L (98-107) 103 MMOL/L (98-107) Carbon Dioxide Level 37 MMOL/L (21-32) 35 MMOL/L (21-32) Anion Gap 7 mmol/L (5-15) 8 mmol/L (5-15) Blood Urea Nitrogen 41 mg/dL (7-18) 35 mg/dL (7-18) Creatinine 1.7 MG/DL (0.55-1.30) 1.4 MG/DL (0.55-1.30) Estimat Glomerular Filtration Rate 29.9 mL/min (>60) 37.4 mL/min (>60) Glucose Level 359 MG/DL (74-106) 290 MG/DL (74-106) Calcium Level 9.5 MG/DL (8.5-10.1) 9.0 MG/DL (8.5-10.1) Phosphorus Level 3.5 MG/DL (2.5-4.9) 3.9 MG/DL (2.5-4.9) Magnesium Level 2.7 MG/DL (1.8-2.4) 2.6 MG/DL (1.8-2.4) Total Bilirubin 0.2 MG/DL (0.2-1.0) 0.2 MG/DL (0.2-1.0) Aspartate Amino Transf (AST/SGOT) 29 U/L (15-37) 43 U/L (15-37) Alanine Aminotransferase (ALT/SGPT) 30 U/L (12-78) 25 U/L (12-78) Alkaline Phosphatase 56 U/L (46-116) 57 U/L (46-116) C-Reactive Protein, Quantitative 1.6 mg/dL (0.00-0.90) < 0.4 mg/dL (0.00-0.90) Pro-B-Type Natriuretic Peptide 2033 pg/mL (0-125) 1287 pg/mL (0-125) Total Protein 8.4 G/DL (6.4-8.2) 8.0 G/DL (6.4-8.2) Albumin 3.3 G/DL (3.4-5.0) 3.2 G/DL (3.4-5.0) Globulin 5.1 g/dL 4.8 g/dL Albumin/Globulin Ratio 0.6 (1.0-2.7) 0.7 (1.0-2.7) Height (Feet): 5 Height (Inches): 5.00 Weight (Pounds): 130 Objective Physical Exam Vitals: reviewed General: alert, non-toxic, thin, other - Frail, Chronically Ill Head: normocephalic, atraumatic Heent: bilateral eye normal inspection, bilateral eye PERRl Respiratory: lungs clear, normal breath sounds, vmask++ Cardiovascular: regular rate, rhythm, no edema Gi: non tender, soft, decreased bowel sounds Gu: no CVA tenderness Msk: no calf tenderness, + Atrophy Neuro: alert, sensory intact, w motor weakness Psychiatric: mood/affect normal Skin: ++ Danie Jackson MD Sep 27, 2019 10:06
--- NOTE | 2019-09-27 10:21 | Nephrology Progress Note ---
Assessment/Plan Problem List: (1) MER (acute kidney injury) (2) Dehydration (3) Type 2 diabetes mellitus (4) Anemia (5) UTI (urinary tract infection) Assessment Acute renal failure, most likely dehydration Will watch for underlying chronic kidney disease. Anemia, etiology to be identified Toxic metabolic encephalopathy on presentation Diabetes mellitus [id number] with hemoglobin A1c of 8.9 History of COPD History of pulmonary hypertension History of UTI, evidence of UTI on this admission Patient currently full code however on previous admission was DNR Plan September 26: Potassium supplement given. Continue per consultants. Stable from renal standpoint of view. September 25: Breathing in room air. Full code. No labs done today. Will check lab tomorrow. Aim to correct today electrolytes September 24: Today's labs still pending. Continue per consultants. We will aim to correct electrolyte abnormalities. September 23: No labs today. Cardiology note appreciated. Medication reviewed. Will check lab tomorrow. Continue per consultants. September 22: Serum creatinine slightly higher to 1.5 today. Remains full code and remains on Venturi mask. Continue per cardiology management. September 21: Renal parameters stable. Continue per cardiology management. Remains full code and on Venturi mask. Will continue to monitor electrolytes and renal parameters. September 20: Discussed with Dr. Galdamez: Serum creatinine down to 1.3. Troponin I went up. Cardizem started for blood pressure. Patient remains on nonrebreather mask. Continue current management. Previously: Serum creatinine gonsalo to 1.6. This morning's blood sugar 455. White blood cells gonsalo to over 17,000. Continue to treat underlying infection. Continue per ID and pulmonary. Avoid nephrotoxic's. Continue to monitor renal parameters. Stop IV hydration. 1 dose of Lasix IV and 1 dose of potassium chloride p.o. ordered. Defer management of the underlying pulmonary condition to lead cashier. Per orders. Monitor renal parameters Monitor electrolytes Keep the blood pressure and blood sugar in check Urine studies Antibiotics as needed Per consultants Subjective ROS Limited/Unobtainable: No Constitutional: Reports: malaise Objective Objective Last 24 Hour Vital Signs Date Time Temp Pulse Resp B/P (MAP) Pulse Ox O2 Delivery O2 Flow Rate FiO2 09/27/19 08:57 92 142/82 09/27/19 08:00 97.5 92 20 142/82 (102) 95 6/15/20 04:06 75 09/27/19 03:55 97.9 84 18 135/79 (97) 95 09/27/19 00:00 96.7 78 18 141/74 (96) 98 09/27/19 00:00 71 09/26/19 21:40 Venturi Mask 6.0 09/26/19 20:00 98.4 78 18 137/80 (99) 95 09/26/19 20:00 77 09/26/19 19:10 99.9 09/26/19 17:56 81 159/91 09/26/19 16:00 100.3 81 18 159/91 (113) 96 09/26/19 15:18 83 09/26/19 11:45 86 09/26/19 11:42 97.7 86 20 145/75 (98) 98 Intake and Output 09/26/19 09/27/19 19:00 07:00 Intake Total 840 ml Balance 840 ml Intake Oral 840 ml # Voids 3 Current Medications Medications (Trade) Dose Ordered Sig/Tenzin Route PRN Reason Start Time Stop Time Status Last Admin Dose Admin Acetaminophen (Tylenol) 650 mg Q4H PRN ORAL Temp >100.5 09/16/19 23:00 10/16/19 22:59 09/26/19 17:57 Atorvastatin Calcium (Lipitor) 10 mg BEDTIME ORAL 09/17/19 21:00 12/16/19 20:59 09/26/19 20:31 Barium Sulfate (Varibar Honey) 250 ml NOW PRN MC RAD 09/24/19 14:45 09/27/19 14:30 Barium Sulfate (Varibar [place]) 240 ml NOW PRN MC RAD 09/24/19 14:45 09/27/19 14:30 Barium Sulfate (Varibar Pudding) 230 ml NOW PRN MC RAD 09/24/19 14:45 09/27/19 14:30 Carbidopa/Levodopa (Sinemet 25/100) 1 tab THREE TIMES A DAY ORAL 09/17/19 09:00 10/17/19 08:59 09/27/19 08:57 Clonidine HCl (Catapres Tab) 0.1 mg Q2H PRN ORAL For High Blood Pressure 09/21/19 09:15 12/20/19 09:14 09/26/19 04:30 Dextrose (Dextrose 50%) 25 ml Q30M PRN IV Hypoglycemia 09/16/19 23:00 12/15/19 22:59 Dextrose (Dextrose 50%) 50 ml Q30M PRN IV Hypoglycemia 09/16/19 23:00 12/15/19 22:59 Diltiazem HCl (Cardizem) 30 mg BID ORAL 09/21/19 09:15 10/21/19 09:14 09/27/19 08:57 Docusate Sodium (Colace) 100 mg THREE TIMES A DAY ORAL 09/17/19 09:00 10/17/19 08:59 09/27/19 08:57 Enoxaparin Sodium (Lovenox) 40 mg DAILY SUBQ 09/28/19 09:00 12/27/19 08:59 Escitalopram Oxalate (Lexapro) 10 mg DAILY ORAL 09/17/19 09:00 10/17/19 08:59 09/27/19 08:57 Furosemide (Lasix) 40 mg DAILY ORAL 09/26/19 09:00 10/26/19 08:59 09/27/19 08:57 Insulin Aspart (NovoLOG) BEFORE MEALS AND HS SUBQ 09/17/19 06:30 12/16/19 06:29 09/27/19 06:14 Insulin Aspart (NovoLOG) 6 units NOVOTIAC SUBQ 09/25/19 16:50 12/24/19 16:49 09/27/19 06:15 Insulin Detemir (Levemir) 24 units DAILY SUBQ 09/27/19 09:00 12/24/19 14:59 09/27/19 08:59 Mirtazapine (Remeron) 7.5 mg BEDTIME PRN ORAL INSOMNIA 09/19/19 01:00 12/18/19 00:59 Nateglinide (Starlix) 120 mg THREE TIMES A DAY ORAL 09/20/19 13:00 10/17/19 08:59 09/27/19 08:56 Pantoprazole (Protonix) 40 mg EVERY 12 HOURS ORAL 09/17/19 09:00 10/17/19 08:59 09/27/19 08:57 Potassium Chloride 100 ml @ 100 mls/hr Q1H IVPB 09/27/19 09:30 09/27/19 11:29 09/27/19 09:39 Potassium Chloride (K-Dur) 20 meq DAILY ORAL 09/27/19 10:30 12/26/19 10:29 09/27/19 10:25 Sodium Chloride 200 ml @ 100 mls/hr Q2H IV 09/27/19 09:30 09/27/19 11:29 09/27/19 09:30 Laboratory Tests 09/27/19 06:10: White Blood Count 12.8H, Red Blood Count 3.85L, Hemoglobin 11.6L, Hematocrit 38.1, Mean Corpuscular Volume 99, Mean Corpuscular Hemoglobin 30.0, Mean Corpuscular Hemoglobin Concent 30.4L, Red Cell Distribution Width 13.2, Platelet Count 452H, Mean Platelet Volume 5.4L, Neutrophils (%) (Auto) 61.6, Lymphocytes (%) (Auto) 28.5, Monocytes (%) (Auto) 6.4, Eosinophils (%) (Auto) 2.7, Basophils (%) (Auto) 0.8, Sodium Level 146H, Potassium Level 3.2L, Chloride Level 103, Carbon Dioxide Level 35H, Anion Gap 8, Blood Urea Nitrogen 35H, Creatinine 1.4H, Estimat Glomerular Filtration Rate 37.4, Glucose Level 290H, Calcium Level 9.0, Phosphorus Level 3.9, Magnesium Level 2.6H, Total Bilirubin 0.2, Aspartate Amino Transf (AST/SGOT) 43H, Alanine Aminotransferase ( ALT/SGPT) 25, Alkaline Phosphatase 57, C-Reactive Protein, Quantitative < 0.4, Pro-B-Type Natriuretic Peptide 1287H, Total Protein 8.0, Albumin 3.2L, Globulin 4.8, Albumin/Globulin Ratio 0.7L Height (Feet): 5 Height (Inches): 5.00 Weight (Pounds): 130 General Appearance: no apparent distress EENT: other - On room air and at times of Venturi mask Cardiovascular: bradycardia Respiratory/Chest: decreased breath sounds Abdomen: soft José Miguel Calvert MD Sep 27, 2019 10:21
--- NOTE | 2019-09-27 10:30 | Progress Note ---
DATE: 09/24/2019 SUBJECTIVE: The patient's mental condition is unchanged since previous encounter. She has anxiety and is slightly more confused today than previous encounter, low energy. MENTAL STATUS EXAM: The patient is alert and oriented times, self, place. Mood is anxious. Affect is flat. Thought process is concrete. Thought content, no suicidal or homicidal ideation. Cognition is impaired. Insight and judgment are impaired. ASSESSMENT: Stable. PLAN: 1. Continue 00:47 citalopram. 2. Continue mirtazapine p.r.n. 3. Continue to follow and adjust the medication. Stephanie Ybarra M.D. DR: ZACHERY JOB#: [id number] CC:
--- NOTE | 2019-09-27 10:50 | Pulmonology Progress Note ---
Subjective ROS Limited/Unobtainable: No Interval Events: Much improved; now on RA Constitutional: Reports: no symptoms HEENT: Repors: no symptoms Respiratory: Reports: shortness of breath Cardiovascular: Reports: no symptoms Gastrointestinal/Abdominal: Reports: no symptoms Allergies: Coded Allergies: No Known Allergies (Unverified , 11/08/15) Objective Last 24 Hour Vital Signs Date Time Temp Pulse Resp B/P (MAP) Pulse Ox O2 Delivery O2 Flow Rate FiO2 09/27/19 09:00 Room Air 09/27/19 08:57 92 142/82 09/27/19 08:00 97.5 92 20 142/82 (102) 95 09/27/19 04:06 75 09/27/19 03:55 97.9 84 18 135/79 (97) 95 09/27/19 00:00 96.7 78 18 141/74 (96) 98 09/27/19 00:00 71 09/26/19 21:40 Venturi Mask 6.0 09/26/19 20:00 98.4 78 18 137/80 (99) 95 09/26/19 20:00 77 09/26/19 19:10 99.9 09/26/19 17:56 81 159/91 09/26/19 16:00 100.3 81 18 159/91 (113) 96 09/26/19 15:18 83 09/26/19 11:45 86 09/26/19 11:42 97.7 86 20 145/75 (98) 98 Intake and Output 09/26/19 09/27/19 19:00 07:00 Intake Total 840 ml Balance 840 ml Intake Oral 840 ml # Voids 3 General Appearance: no acute distress HEENT: normocephalic Respiratory: chest wall non-tender, decreased breath sounds Cardiovascular: normal peripheral pulses, normal rate Abdomen: normal bowel sounds, soft, non tender Extremities: no cyanosis Laboratory Tests 09/27/19 06:10: White Blood Count 12.8H, Red Blood Count 3.85L, Hemoglobin 11.6L, Hematocrit 38.1, Mean Corpuscular Volume 99, Mean Corpuscular Hemoglobin 30.0, Mean Corpuscular Hemoglobin Concent 30.4L, Red Cell Distribution Width 13.2, Platelet Count 452H, Mean Platelet Volume 5.4L, Neutrophils (%) (Auto) 61.6, Lymphocytes (%) (Auto) 28.5, Monocytes (%) (Auto) 6.4, Eosinophils (%) (Auto) 2.7, Basophils (%) (Auto) 0.8, Sodium Level 146H, Potassium Level 3.2L, Chloride Level 103, Carbon Dioxide Level 35H, Anion Gap 8, Blood Urea Nitrogen 35H, Creatinine 1.4H, Estimat Glomerular Filtration Rate 37.4, Glucose Level 290H, Calcium Level 9.0, Phosphorus Level 3.9, Magnesium Level 2.6H, Total Bilirubin 0.2, Aspartate Amino Transf (AST/SGOT) 43H, Alanine Aminotransferase ( ALT/SGPT) 25, Alkaline Phosphatase 57, C-Reactive Protein, Quantitative < 0.4, Pro-B-Type Natriuretic Peptide 1287H, Total Protein 8.0, Albumin 3.2L, Globulin 4.8, Albumin/Globulin Ratio 0.7L Current Medications Medications (Trade) Dose Ordered Sig/Tenzin Route PRN Reason Start Time Stop Time Status Last Admin Dose Admin Acetaminophen (Tylenol) 650 mg Q4H PRN ORAL Temp >100.5 09/16/19 23:00 10/16/19 22:59 09/26/19 17:57 Atorvastatin Calcium (Lipitor) 10 mg BEDTIME ORAL 09/17/19 21:00 12/16/19 20:59 09/26/19 20:31 Barium Sulfate (Varibar Honey) 250 ml NOW PRN MC RAD 09/24/19 14:45 09/27/19 14:30 Barium Sulfate (Varibar [place]) 240 ml NOW PRN MC RAD 09/24/19 14:45 09/27/19 14:30 Barium Sulfate (Varibar Pudding) 230 ml NOW PRN MC RAD 09/24/19 14:45 09/27/19 14:30 Carbidopa/Levodopa (Sinemet 25/100) 1 tab THREE TIMES A DAY ORAL 09/17/19 09:00 10/17/19 08:59 09/27/19 08:57 Clonidine HCl (Catapres Tab) 0.1 mg Q2H PRN ORAL For High Blood Pressure 09/21/19 09:15 12/20/19 09:14 09/26/19 04:30 Dextrose (Dextrose 50%) 25 ml Q30M PRN IV Hypoglycemia 09/16/19 23:00 12/15/19 22:59 Dextrose (Dextrose 50%) 50 ml Q30M PRN IV Hypoglycemia 09/16/19 23:00 12/15/19 22:59 Diltiazem HCl (Cardizem) 30 mg BID ORAL 09/21/19 09:15 10/21/19 09:14 09/27/19 08:57 Docusate Sodium (Colace) 100 mg THREE TIMES A DAY ORAL 09/17/19 09:00 10/17/19 08:59 09/27/19 08:57 Enoxaparin Sodium (Lovenox) 40 mg DAILY SUBQ 09/28/19 09:00 12/27/19 08:59 Escitalopram Oxalate (Lexapro) 10 mg DAILY ORAL 09/17/19 09:00 10/17/19 08:59 09/27/19 08:57 Furosemide (Lasix) 40 mg DAILY ORAL 09/26/19 09:00 10/26/19 08:59 09/27/19 08:57 Insulin Aspart (NovoLOG) BEFORE MEALS AND HS SUBQ 09/17/19 06:30 12/16/19 06:29 09/27/19 06:14 Insulin Aspart (NovoLOG) 6 units NOVOTIAC SUBQ 09/25/19 16:50 12/24/19 16:49 09/27/19 06:15 Insulin Detemir (Levemir) 24 units DAILY SUBQ 09/27/19 09:00 12/24/19 14:59 09/27/19 08:59 Mirtazapine (Remeron) 7.5 mg BEDTIME PRN ORAL INSOMNIA 09/19/19 01:00 12/18/19 00:59 Nateglinide (Starlix) 120 mg THREE TIMES A DAY ORAL 09/20/19 13:00 10/17/19 08:59 09/27/19 08:56 Pantoprazole (Protonix) 40 mg EVERY 12 HOURS ORAL 09/17/19 09:00 10/17/19 08:59 09/27/19 08:57 Potassium Chloride 100 ml @ 100 mls/hr Q1H IVPB 09/27/19 09:30 09/27/19 11:29 09/27/19 10:42 Potassium Chloride (K-Dur) 20 meq DAILY ORAL 09/27/19 10:30 12/26/19 10:29 09/27/19 10:25 Sodium Chloride 200 ml @ 100 mls/hr Q2H IV 09/27/19 09:30 09/27/19 11:29 09/27/19 09:30 Assessment/Plan Assessment/Plan IMPRESSION: 1. Hypoxemia. Suspect pulm edema 2. Diabetes mellitus. 3. Decubitus ulcer, sacrum. 4. UTI. 5. Hypertension. 6. Hyperlipidemia. DISCUSSION: Will continue to diurese Has lost 5kg in weight Is I/O negatuive COVID 19 pcr x1 is negative Continue O2 prn Abx for UTI Negative venous duplex lower extremities Dc planning to SNF Valery Lee Omar Syed MD Sep 27, 2019 10:49
--- NOTE | 2019-09-27 10:58 | Infectious Diseases Prog Note ---
Assessment/Plan Assessment/Plan IMPRESSION: Sepsis resolved Pneumonia treated E. coli UTI, treated Diabetes mellitus with hyperglycemia, COPD, Hypertension, pulmonary hypertension, Diastolic CHF, Parkinson disease, anemia, major depression. RECOMMENDATION: Observe off antibiotic Agree with discharge Subjective ROS Limited/Unobtainable: Yes Allergies: Coded Allergies: No Known Allergies (Unverified , 11/08/15) Objective Vital Signs Last 24 Hour Vital Signs Date Time Temp Pulse Resp B/P (MAP) Pulse Ox O2 Delivery O2 Flow Rate FiO2 09/27/19 09:00 Room Air 09/27/19 08:57 92 142/82 09/27/19 08:00 97.5 92 20 142/82 (102) 95 09/27/19 04:06 75 09/27/19 03:55 97.9 84 18 135/79 (97) 95 09/27/19 00:00 96.7 78 18 141/74 (96) 98 09/27/19 00:00 71 09/26/19 21:40 Venturi Mask 6.0 09/26/19 20:00 98.4 78 18 137/80 (99) 95 09/26/19 20:00 77 09/26/19 19:10 99.9 09/26/19 17:56 81 159/91 09/26/19 16:00 100.3 81 18 159/91 (113) 96 09/26/19 15:18 83 09/26/19 11:45 86 09/26/19 11:42 97.7 86 20 145/75 (98) 98 Height (Feet): 5 Height (Inches): 5.00 Weight (Pounds): 130 HEENT: mucous membranes moist Respiratory/Chest: lungs clear Cardiovascular: normal rate Abdomen: soft, non tender Extremities: no edema Neurologic/Psychiatric: other - sleeping Laboratory Tests Test 09/27/19 06:10 White Blood Count 12.8 K/UL (4.8-10.8) H Red Blood Count 3.85 M/UL (4.20-5.40) L Hemoglobin 11.6 G/DL (12.0-16.0) L Hematocrit 38.1 % (37.0-47.0) Mean Corpuscular Volume 99 FL (80-99) Mean Corpuscular Hemoglobin 30.0 PG (27.0-31.0) Mean Corpuscular Hemoglobin Concent 30.4 G/DL (32.0-36.0) L Red Cell Distribution Width 13.2 % (11.6-14.8) Platelet Count 452 K/UL (150-450) H Mean Platelet Volume 5.4 FL (6.5-10.1) L Neutrophils (%) (Auto) 61.6 % (45.0-75.0) Lymphocytes (%) (Auto) 28.5 % (20.0-45.0) Monocytes (%) (Auto) 6.4 % (1.0-10.0) Eosinophils (%) (Auto) 2.7 % (0.0-3.0) Basophils (%) (Auto) 0.8 % (0.0-2.0) Sodium Level 146 MMOL/L (136-145) H Potassium Level 3.2 MMOL/L (3.5-5.1) L Chloride Level 103 MMOL/L (98-107) Carbon Dioxide Level 35 MMOL/L (21-32) H Anion Gap 8 mmol/L (5-15) Blood Urea Nitrogen 35 mg/dL (7-18) H Creatinine 1.4 MG/DL (0.55-1.30) H Estimat Glomerular Filtration Rate 37.4 mL/min (>60) Glucose Level 290 MG/DL (74-106) H Calcium Level 9.0 MG/DL (8.5-10.1) Phosphorus Level 3.9 MG/DL (2.5-4.9) Magnesium Level 2.6 MG/DL (1.8-2.4) H Total Bilirubin 0.2 MG/DL (0.2-1.0) Aspartate Amino Transf (AST/SGOT) 43 U/L (15-37) H Alanine Aminotransferase (ALT/SGPT) 25 U/L (12-78) Alkaline Phosphatase 57 U/L (46-116) C-Reactive Protein, Quantitative < 0.4 mg/dL (0.00-0.90) Pro-B-Type Natriuretic Peptide 1287 pg/mL (0-125) H Total Protein 8.0 G/DL (6.4-8.2) Albumin 3.2 G/DL (3.4-5.0) L Globulin 4.8 g/dL Albumin/Globulin Ratio 0.7 (1.0-2.7) L Current Medications Medications (Trade) Dose Ordered Sig/Tenzin Route PRN Reason Start Time Stop Time Status Last Admin Dose Admin Acetaminophen (Tylenol) 650 mg Q4H PRN ORAL Temp >100.5 09/16/19 23:00 10/16/19 22:59 09/26/19 17:57 Atorvastatin Calcium (Lipitor) 10 mg BEDTIME ORAL 09/17/19 21:00 12/16/19 20:59 09/26/19 20:31 Barium Sulfate (Varibar [place]) 250 ml NOW PRN MC RAD 09/24/19 14:45 09/27/19 14:30 Barium Sulfate (Varibar [place]) 240 ml NOW PRN MC RAD 09/24/19 14:45 09/27/19 14:30 Barium Sulfate (Varibar Pudding) 230 ml NOW PRN MC RAD 09/24/19 14:45 09/27/19 14:30 Carbidopa/Levodopa (Sinemet 25/100) 1 tab THREE TIMES A DAY ORAL 09/17/19 09:00 10/17/19 08:59 09/27/19 08:57 Clonidine HCl (Catapres Tab) 0.1 mg Q2H PRN ORAL For High Blood Pressure 09/21/19 09:15 12/20/19 09:14 09/26/19 04:30 Dextrose (Dextrose 50%) 25 ml Q30M PRN IV Hypoglycemia 09/16/19 23:00 12/15/19 22:59 Dextrose (Dextrose 50%) 50 ml Q30M PRN IV Hypoglycemia 09/16/19 23:00 12/15/19 22:59 Diltiazem HCl (Cardizem) 30 mg BID ORAL 09/21/19 09:15 10/21/19 09:14 09/27/19 08:57 Docusate Sodium (Colace) 100 mg THREE TIMES A DAY ORAL 09/17/19 09:00 10/17/19 08:59 09/27/19 08:57 Enoxaparin Sodium (Lovenox) 40 mg DAILY SUBQ 09/28/19 09:00 12/27/19 08:59 Escitalopram Oxalate (Lexapro) 10 mg DAILY ORAL 09/17/19 09:00 10/17/19 08:59 09/27/19 08:57 Furosemide (Lasix) 40 mg DAILY ORAL 09/26/19 09:00 10/26/19 08:59 09/27/19 08:57 Insulin Aspart (NovoLOG) BEFORE MEALS AND HS SUBQ 09/17/19 06:30 12/16/19 06:29 09/27/19 06:14 Insulin Aspart (NovoLOG) 6 units NOVOTIAC SUBQ 09/25/19 16:50 12/24/19 16:49 09/27/19 06:15 Insulin Detemir (Levemir) 24 units DAILY SUBQ 09/27/19 09:00 12/24/19 14:59 09/27/19 08:59 Mirtazapine (Remeron) 7.5 mg BEDTIME PRN ORAL INSOMNIA 09/19/19 01:00 12/18/19 00:59 Nateglinide (Starlix) 120 mg THREE TIMES A DAY ORAL 09/20/19 13:00 10/17/19 08:59 09/27/19 08:56 Pantoprazole (Protonix) 40 mg EVERY 12 HOURS ORAL 09/17/19 09:00 10/17/19 08:59 09/27/19 08:57 Potassium Chloride 100 ml @ 100 mls/hr Q1H IVPB 09/27/19 09:30 09/27/19 11:29 09/27/19 10:42 Potassium Chloride (K-Dur) 20 meq DAILY ORAL 09/27/19 10:30 12/26/19 10:29 09/27/19 10:25 Sodium Chloride 200 ml @ 100 mls/hr Q2H IV 09/27/19 09:30 09/27/19 11:29 09/27/19 09:30 Rogelio Martinez MD Sep 27, 2019 10:58
--- NOTE | 2019-09-27 11:45 | Cardiac Electrophysiology PN ---
Assessment/Plan Status Narrative 1. Patchy densities and ground-glass opacities throughout right greater than left, concerning for an infectious/inflammatory process and/or pulmonary edema. 2. Small bilateral pleural effusions. 3. No pulmonary embolus identified. 4. Mild prominence of the pulmonary artery is suggestive of pulmonary arterial hypertension. Assessment/Plan 1. Hypertension on Lasix 40 po daily, Cardizem 30 bid and prn Clonidine 2. Troponin leak. First 2 troponins were negative. 3rd troponin now mildly elevated and repeat troponin lower at 0.4. Echo EF 65% 3. Fever and UTI on iv Abx. Ruled out for COVID. 4. Diabetes. 5. Contracted gallbladder, packed with stones by Abd US. 6. S/P Respiratory failure, COPD and pulmonary HTN. Chest CT showed no PE. 7. Hyperlipidemia, on Lipitor. DW RN DC today pending Subjective Subjective Off oxygen on room air. Comfortable. Off Covid isolation. Chest CT no PE. BNP > 71904. BP better with Cardizem.In SR. DC back to [facility] pending. Objective Last 24 Hour Vital Signs Date Time Temp Pulse Resp B/P (MAP) Pulse Ox O2 Delivery O2 Flow Rate FiO2 09/27/19 09:00 Room Air 09/27/19 08:57 92 142/82 09/27/19 08:00 97.5 92 20 142/82 (102) 95 09/27/19 04:06 75 09/27/19 03:55 97.9 84 18 135/79 (97) 95 09/27/19 00:00 96.7 78 18 141/74 (96) 98 09/27/19 00:00 71 09/26/19 21:40 Venturi Mask 6.0 09/26/19 20:00 98.4 78 18 137/80 (99) 95 09/26/19 20:00 77 09/26/19 19:10 99.9 09/26/19 17:56 81 159/91 09/26/19 16:00 100.3 81 18 159/91 (113) 96 09/26/19 15:18 83 09/26/19 11:45 86 09/26/19 11:42 97.7 86 20 145/75 (98) 98 Intake and Output 09/26/19 09/27/19 19:00 07:00 Intake Total 840 ml Balance 840 ml Intake Oral 840 ml # Voids 3 Laboratory Tests Test 09/27/19 06:10 White Blood Count 12.8 K/UL (4.8-10.8) H Red Blood Count 3.85 M/UL (4.20-5.40) L Hemoglobin 11.6 G/DL (12.0-16.0) L Hematocrit 38.1 % (37.0-47.0) Mean Corpuscular Volume 99 FL (80-99) Mean Corpuscular Hemoglobin 30.0 PG (27.0-31.0) Mean Corpuscular Hemoglobin Concent 30.4 G/DL (32.0-36.0) L Red Cell Distribution Width 13.2 % (11.6-14.8) Platelet Count 452 K/UL (150-450) H Mean Platelet Volume 5.4 FL (6.5-10.1) L Neutrophils (%) (Auto) 61.6 % (45.0-75.0) Lymphocytes (%) (Auto) 28.5 % (20.0-45.0) Monocytes (%) (Auto) 6.4 % (1.0-10.0) Eosinophils (%) (Auto) 2.7 % (0.0-3.0) Basophils (%) (Auto) 0.8 % (0.0-2.0) Sodium Level 146 MMOL/L (136-145) H Potassium Level 3.2 MMOL/L (3.5-5.1) L Chloride Level 103 MMOL/L (98-107) Carbon Dioxide Level 35 MMOL/L (21-32) H Anion Gap 8 mmol/L (5-15) Blood Urea Nitrogen 35 mg/dL (7-18) H Creatinine 1.4 MG/DL (0.55-1.30) H Estimat Glomerular Filtration Rate 37.4 mL/min (>60) Glucose Level 290 MG/DL (74-106) H Calcium Level 9.0 MG/DL (8.5-10.1) Phosphorus Level 3.9 MG/DL (2.5-4.9) Magnesium Level 2.6 MG/DL (1.8-2.4) H Total Bilirubin 0.2 MG/DL (0.2-1.0) Aspartate Amino Transf (AST/SGOT) 43 U/L (15-37) H Alanine Aminotransferase (ALT/SGPT) 25 U/L (12-78) Alkaline Phosphatase 57 U/L (46-116) C-Reactive Protein, Quantitative < 0.4 mg/dL (0.00-0.90) Pro-B-Type Natriuretic Peptide 1287 pg/mL (0-125) H Total Protein 8.0 G/DL (6.4-8.2) Albumin 3.2 G/DL (3.4-5.0) L Globulin 4.8 g/dL Albumin/Globulin Ratio 0.7 (1.0-2.7) L Objective HEAD AND NECK: No JVD. LUNGS: Clear. CARDIOVASCULAR: Regular S1 and S2 with no gallop. ABDOMEN: Soft. EXTREMITIES: No pitting edema. Noe Galdamez MD Sep 27, 2019 11:45
[2019-09-27 12:00] VITALS: BP 164/84
--- NOTE | 2019-09-27 14:15 | NUR ---
*-*DISCHARGE PLANNED*-* PATIENT HAS BEEN ACCEPTED AND WILL BE DISCHARGED BACK TO: [facility] P: [phone] FOR NURSE TO NURSE REPORT ROOM# 4.A SKILLED [facility] TRANSPORTATION SET FOR 2:20 S/W MAXINE [id number]
--- NOTE | 2019-09-27 15:00 | NUR ---
NURSE NOTES: Patient discharged to [facility] in stable condition. Report given to Leilani LINDSAY. Discharge instructions given, verbalized understanding. IV line removed. ID band removed. No new skin issues noted. No belongings. Transported by ambulance accompanied by ambulance personnel.
--- NOTE | 2019-09-27 22:25 | Psych Consult Progress Note ---
Psychiatry Progress Note Psychiatry Progress Note Neurological/Psychiatric: Reports: anxiety, depressed, emotional problems Allergies: Coded Allergies: No Known Allergies (Unverified , 11/08/15) Objective Data Height (Feet): 5 Height (Inches): 5.00 Weight (Pounds): 130 General Appearance: WD/WN, no apparent distress, alert, alert oriented x3, other Assessment/Plan Status: progressing Assessment/Plan: alert and oriented times self. Mood is anxious. Affect is flat. Thought process, there is a paucity of thought content. Thought content, no suicidal or homicidal ideation. Cognition is impaired. Insight and judgment are impaired. ASSESSMENT: [place] I Acute encephalopathy. Major depressive disorder. Anxiety disorder. PLAN: 1. Lexapro 10 mg in the morning 2. remeron 7.5 mg po qhs Stephanie Ybarra MD Sep 27, 2019 22:25
[2019-09-28] MEDS ORDERED: Enoxaparin 40mg Inj SUBQ SCH (09:00)
--- NOTE | 2019-09-28 14:53 | Discharge Summary ---
Discharge Summary Discharge Summary _ DATE OF ADMISSION: 09/16/2019 DATE OF DISCHARGE: 09/27/2019 DISCHARGED BY: Dr. Rios REASON FOR ADMISSION: 68 years old female with past medical history of diabetes mellitus, presented from the retirement facility due to altered mental status. About 6 hours prior to presentation at the dinnertime patient was noted to be altered. Patient was sent to emergency room for evaluation. No reported fever or chills. No cough or shortness of breath. No nausea or vomiting. Upon evaluation patient was febrile with temperature of 103.5. Pulse oximetry was stable on room air , blood pressure 150/111. Laboratory work-up revealed leukocytosis WBC 12.1, hemoglobin 10.3 ,hematocrit 29.5, platelet count 270. Urinalysis revealed findings consistent with UTI. Stable electrolytes. BUN 36, creatinine 1.6. Glucose 280. Hemoglobin A1c 8.9. Troponin - 0.003 , pro BNP 3009 . EKG revealed sinus rhythm , no acute ischemic changes ; right bundle branch block noted. Chest x-ray demonstrated no acute cardiopulmonary pathology. Patient was swabbed for COVID-19 and subsequently admitted for further management. CONSULTANTS: working supervisor Dr. Ann pulmonary Dr. Byrne ID specialist Dr. Rogelio Martinez donor relations officer Dr. Calvert endocrinology Dr. Munoz rn assessment/oncologist Dr. Marin psychiatrist Dr. Ybarra [facility] COURSE: Patient admitted to telemetry floor. Patient initially was kept in isolation. Blood culture were negative. SARS COV 2 on 09/15 was not detected. Urine culture revealed E. coli. Leukocytosis initially was trended up and then started to trend down. Fevers resolved. Antibiotic provided as per ID specialist recommendation . Patient completed antibiotic treatment while in the hospital. Due to elevated d-dimer (3.36 ), patient undergone venous duplex bilateral lower extremity, which revealed no evidence of acute DVT. CTA of the chest revealed patchy density and ground-glass opacity throughout right greater than left , lungs. Concerning for infectious/inflammatory process and /or pulmonary edema. No pulmonary emboli was identified. Mild prominence of pulmonary artery was suggestive of pulmonary arterial hypertension. Small bilateral pleural effusion. Supplemental oxygen provided and titrated to keep pulse oximetry above 92% . Pulmonary toilet provided. Patient at some point required nonrebreathing mask and Venturi mask. Prior to discharge pulse oximetry stable on room air. Patient was followed-up with chest x-ray . Last chest x-ray showed resolution of previously demonstrated bilateral infiltrates versus edema. No definite acute process. Blood pressure was managed with Cardizem and Lasix. Clonidine was on board as needed for blood pressure spikes. Volumes were closely monitored. First 2 troponin were negative. Last troponin 0.4. EKG sinus rhythm, no acute ischemic changes. Echocardiogram revealed preserved ejection fraction. According to working supervisor, minimally elevated troponin was likely troponin leak. Blood sugar was managed as per chemistry department chair recommendation . Diabetic diet and diabetic teaching provided. Blood sugar improved. Hemoglobin A1c 8.9. Patient will need further optimization of anti-glycemic regimen as outpatient. Renal parameters and electrolytes were closely monitored. Patient initially was hydrated. Electrolytes corrected as needed , and nephrotoxins were avoided. IV hydration later stopped . Prior to discharge creatinine down to 1.4 from initial 1.8. Psychiatrist followed. Psychiatric medication regimen was optimized. Patient clinically stabilized and was ready for discharge back to retirement facility for continuation of care. FINAL DIAGNOSES: Sepsis Pneumonia E. coli UTI Acute hypoxemia Suspected pulmonary edema Acute kidney injury , most likely dehydration probably on chronic kidney insufficiency Acute toxic metabolic encephalopathy Diabetes mellitus [id number] with hyperglycemia COPD Pulmonary hypertension Hypertension Troponin leak Diastolic CHF Parkinson disease Anemia Major depressive disorder Anxiety disorder DISCHARGE MEDICATIONS: See Medication Reconciliation list. DISCHARGE INSTRUCTIONS: Patient was discharged to the retirement facility. Follow up with medical doctor at the facility. I have been assigned to dictate discharge summary for this account. I was not involved in the patient's management. Patti Durham NP Sep 28, 2019 14:53
--- NOTE | 2019-09-28 16:57 | Diagnostic Imaging Report ---
Swallow Function Video CLINICAL HISTORY: Reason For Exam: DYSPHAGIA. COMPARISON: None FINDINGS: Video swallow is performed with patient's given various consistencies of barium and swallowing mechanism is evaluated under direct fluoroscopy. The patient demonstrates transient penetration, but no aspiration. Fluoroscopy time was 92.7 seconds and 8 cine series were obtained. Fluoroscopy dose is 0.18684 uGy*m2. Please see separate detailed notes from speech therapy. IMPRESSION: VIDEOFLUOROSCOPY FOR SPEECH EVALUATION PERFORMED. PLEASE SEE SEPARATE DETAILED NOTES SPEECH THERAPY.
== END 2019-09-27 15:15 | DRG 871 ==
LOC: EDBD 18:03 → EMR 18:29 → 2E 18:40 → EDBEDREQ 20:12 → 2E 09-21 08:32
DX: A41.9 Sepsis, unspecified organism (principal); G92 Toxic encephalopathy; J18.9 Pneumonia, unspecified organism; N17.9 Acute kidney failure, unspecified; N39.0 Urinary tract infection, site not specified; I50.30 Unspecified diastolic (congestive) heart failure; E86.0 Dehydration; Z20.828 Contact with and (suspected) exposure to other viral communicable diseases; E11.65 Type 2 diabetes mellitus with hyperglycemia; E11.22 Type 2 diabetes mellitus with diabetic chronic kidney disease; R65.20 Severe sepsis without septic shock; I12.9 Hypertensive chronic kidney disease with stage 1 through stage 4 chronic kidney disease, or unspecified chronic kidney disease; F41.9 Anxiety disorder, unspecified; L89.151 Pressure ulcer of sacral region, stage 1; J44.9 Chronic obstructive pulmonary disease, unspecified; E11.69 Type 2 diabetes mellitus with other specified complication; E78.5 Hyperlipidemia, unspecified; I25.10 Atherosclerotic heart disease of native coronary artery without angina pectoris; G20 Parkinson's disease; Z79.4 Long term (current) use of insulin; B96.20 Unspecified Escherichia coli [E. coli] as the cause of diseases classified elsewhere; I27.20 Pulmonary hypertension, unspecified; F32.9 Major depressive disorder, single episode, unspecified; K21.9 Gastro-esophageal reflux disease without esophagitis; D50.9 Iron deficiency anemia, unspecified; F03.90 Unspecified dementia, unspecified severity, without behavioral disturbance, psychotic disturbance, mood disturbance, and anxiety; E11.319 Type 2 diabetes mellitus with unspecified diabetic retinopathy without macular edema; K80.20 Calculus of gallbladder without cholecystitis without obstruction; K59.00 Constipation, unspecified; R09.02 Hypoxemia
CPT/HCPCS: 36415; 36600; 71045; 71275; 74230; 76700; 80053; 80061; 81003; 82140; 82550; 82553; 82607; 82728; 82746; 82803; 82962; 83036; 83540; 83550; 83605; 83615; 83735; 83880; 84100; 84443; 84484; 84550; 85007; 85025; 85379; 85610; 85730; 86140; 87040; 87086; 87181; 93005; 93306; 93970; 94640; 94664; 96361; 96365; 99285; J1815; J7030; J7620; J8499; S5561

== ENCOUNTER 2020-03-12 10:22 | Inpatient (IN) | payer MEDICARE, MEDICAID ==
[~2020-03-12] VITALS: Ht 162.6 cm; Wt 83.9 kg
[~2020-03-12 10:22] MED LIST changes: -ATORVASTATIN CA20 MG GT; +ATORVASTATIN CA20 MG PO; -CATAPRES0.1 MG GT; +CATAPRES0.1 MG PO; +CITALOPRAM HBR20 M1 ORAL; -DOCUSATE SODIU100 MG GT; +DOCUSATE SODIU100 MG PO; -LACTULOSE20 GM/301 GT; +LACTULOSE20 GM/301 PO; +LEXAPRO10 MG ORAL; +MIRTAZAPINE7.5 MG ORAL; -NEURONTIN100 MG GT; +NEURONTIN100 MG PO; +VALPROIC ACID250 MG PO; +VIRT-CAPS SOFTGE1 MG PO; +VITAMIN C500 M1 ORAL
[2020-03-12] MEDS ORDERED: ALBUTEROL2.5 MG/3 M INH (10:32)
[2020-03-12] MEDS ORDERED: BENADRYL25 MG ORAL (10:32)
[2020-03-12] MEDS ORDERED: CRANBERRY450 M5 PO (10:39)
[2020-03-12] MEDS ORDERED: LANTUS SOL100 UNIT/1 SUBQ (10:39)
[2020-03-12] MEDS ORDERED: Morphine Sulfate 4mg/ml Inj (IV USE ONLY) IVP ONE (10:45)
--- NOTE | 2020-03-12 10:45 | Emergency Room Report ---
History of Present Illness General Chief Complaint: Vomiting Source: Patient, EMS, PMD Present Illness HPI The patient presents with 3 to 4 days of diffuse abdominal pain although she motions more to the right upper quadrant. This is associated with nausea and vomiting. When the pain hits it severe. She rates it 10/10. Currently she says the pain is 8/10. Her physician reports that she has reported a loss of sense of smell and taste and is concerned about possible COVID-19 infection. She says that the loss of taste is more intermittent. She denies any diarrhea. She last moved her bowels yesterday without any blood. She denies any constipation although she is complaining about some rectal pain. She has had urinary tract infections in the past but denies any dysuria at the moment. When she vomits his food stuff and that there is no coffee-ground or blood. She has been able to keep down some liquids. She is uncertain with what medicines have been used for pain. She denies fevers or chills. In September and ultrasound performed revealed multiple gallstones. Patient is diabetic. Patient has Parkinson's disease. Patient resides in a half-way facility. She tested negative for COVID-19 on March 07. No sore throat, chest pain, palpitations, shortness of breath, joint pain, rashes, depression, visual changes, dizziness, headache. 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 Reviewed Nursing Documentation: PMH: Agreed; PSxH: Agreed Nursing Documentation-PMH Hx Cardiac Problems: Yes - Hyperlipidemia, Atherosclerosis Hx Hypertension: Yes Hx COPD: Yes Hx Diabetes: Yes - acute pancreatitis Hx Gastrointestinal Problems: Yes - hepatic failure, GERD Hx Dementia: Yes Hx Seizures: Yes Hx Weakness: Yes Review of Systems All Other Systems: negative except mentioned in HPI Physical Exam Vital Signs Date Time Temp Pulse Resp B/P (MAP) Pulse Ox O2 Delivery O2 Flow Rate FiO2 03/12/20 10:23 98.8 90 20 142/84 (103) 95 Room Air Sp02 EP Interpretation: reviewed, normal General Appearance: well appearing, no apparent distress, GCS 15, non-toxic Head: normocephalic Eyes: bilateral eye normal inspection, bilateral eye PERRL, bilateral eye EOMI ENT: moist mucus membranes Neck: supple Respiratory: lungs clear, normal breath sounds Cardiovascular #1: regular rate, rhythm Cardiovascular #2: 2+ radial (R) Gastrointestinal: normal inspection, normal bowel sounds, no mass, non- distended, no guarding, no rebound, tenderness Genitourinary: no CVA tenderness Musculoskeletal: back normal, normal range of motion Neurologic: alert, oriented - X2, other - resting tremor Psychiatric: mood/affect normal Skin: no rash, warm/dry Medical Decision Making Diagnostic Impression: Primary Impression: Abdominal pain Qualified Codes: R10.11 - Right upper quadrant pain Additional Impressions: Nausea & vomiting Qualified Codes: R11.2 - Nausea with vomiting, unspecified Elevated lactic acid level Hyperglycemia Gall stones Renal insufficiency ER Course Patient with known gallstones presents with right upper quadrant and generalized abdominal pain that is colicky with nausea and vomiting. Differential includes Janis lithiasis, cholecystitis, constipation, urinary tract infection, diverticulitis, food poisoning amongst others. Evaluation with EKG, chest x-ray and ultrasound with labs. Patient treated with IV hydration, Zofran and morphine. Patient placed on a awake overnight monitor. Her private physician is concerned about Covid and requested a Covid test. This will be performed. EKG NSR, NSSTTW changes. CXR no infiltrates. WBC normal. CMP with renal insufficiency (improved from prior values) and elevated blood glucose. BNP elevated. Urinalysis essentially normal. Called with lactate = 3.1. Bolus ordered. Cefepime ordered. Ultrasound reveals gallstones and sludge with no wall thickening. Patient pain is improved. Repeat lactate acid normal. Covid test pending. Suspicion is low. Patient admitted to medical floor. Results discussed with Dr. Rios. Laboratory Tests Test 03/12/20 10:40 03/12/20 13:00 White Blood Count 7.3 K/UL (4.8-10.8) Red Blood Count 4.15 M/UL (4.20-5.40) L Hemoglobin 12.9 G/DL (12.0-16.0) Hematocrit 38.4 % (37.0-47.0) Mean Corpuscular Volume 92 FL (80-99) Mean Corpuscular Hemoglobin 31.0 PG (27.0-31.0) Mean Corpuscular Hemoglobin Concent 33.5 G/DL (32.0-36.0) Red Cell Distribution Width 14.8 % (11.6-14.8) Platelet Count 252 K/UL (150-450) Mean Platelet Volume 6.8 FL (6.5-10.1) Neutrophils (%) (Auto) 48.9 % (45.0-75.0) Lymphocytes (%) (Auto) 31.6 % (20.0-45.0) Monocytes (%) (Auto) 17.9 % (1.0-10.0) H Eosinophils (%) (Auto) 0.4 % (0.0-3.0) Basophils (%) (Auto) 1.2 % (0.0-2.0) Prothrombin Time 10.5 SEC (9.30-11.50) Prothrombin Time INR 0.9 (0.9-1.1) Activated Partial Thromboplast Time 24 SEC (23-33) D-Dimer 0.71 mg/L FEU (0.00-0.49) H Urine Color Yellow Urine Appearance Slightly cloudy Urine pH 5 (4.5-8.0) Urine Specific [place] 1.020 (1.005-1.035) Urine Protein 2+ (NEGATIVE) H Urine Glucose (UA) 2+ (NEGATIVE) H Urine Ketones Negative (NEGATIVE) Urine Blood 4+ (NEGATIVE) H Urine Nitrite Negative (NEGATIVE) Urine Bilirubin Negative (NEGATIVE) Urine Urobilinogen Normal MG/DL (0.0-1.0) Urine Leukocyte Esterase 1+ (NEGATIVE) H Urine RBC 5-10 /HPF (0 - 2) H Urine WBC 0-2 /HPF (0 - 2) Urine Squamous Epithelial Cells Moderate /LPF (NONE/OCC) H Urine Bacteria Few /HPF (NONE) Sodium Level 134 MMOL/L (136-145) L Potassium Level 5.2 MMOL/L (3.5-5.1) H Chloride Level 97 MMOL/L (98-107) L Carbon Dioxide Level 30 MMOL/L (21-32) Anion Gap 7 mmol/L (5-15) Blood Urea Nitrogen 42 mg/dL (7-18) H Creatinine 1.8 MG/DL (0.55-1.30) H Estimated Glomerular Filtration Rate 27.9 mL/min (>60) Glucose Level 434 MG/DL (74-106) H Lactic Acid Level 3.10 mmol/L (0.4-2.0) H 1.50 mmol/L (0.66-2.22) Calcium Level 8.7 MG/DL (8.5-10.1) Magnesium Level 2.6 MG/DL (1.8-2.4) H Ferritin 213 NG/ML (8-388) Total Bilirubin 0.3 MG/DL (0.2-1.0) Aspartate Amino Transferase (AST) 101 U/L (15-37) H Alanine Aminotransferase (ALT) 90 U/L (12-78) H Alkaline Phosphatase 88 U/L (46-116) Lactate Dehydrogenase 276 U/L (81-234) H Total Creatine Kinase 816 U/L (26-308) H Troponin I 0.042 ng/mL (0.000-0.056) C-Reactive Protein, Quantitative 0.5 mg/dL (0.00-0.90) Pro-B-Type Natriuretic Peptide 1011 pg/mL (0-125) H Total Protein 7.9 G/DL (6.4-8.2) Albumin 3.2 G/DL (3.4-5.0) L Globulin 4.7 g/dL Albumin/Globulin Ratio 0.7 (1.0-2.7) L Lipase 281 U/L (73-393) EKG Diagnostic Results Rate: normal Rhythm: NSR ST Segments: no acute changes - nssttw changes Rhythm Strip Diag. Results EP Interpretation: yes Rhythm: NSR, no PVC's, no ectopy Chest X-Ray Diagnostic Results Chest X-Ray Diagnostic Results : Chest X-Ray Ordered: Yes # of Views/Limited/Complete: 1 View Indication: Other EP Interpretation: Yes Interpretation: no consolidation, no effusion, no pneumothorax Impression: No acute disease Electronically Signed by: Electronically signed by Walker Jennings MD CT/MRI/US Diagnostic Results CT/MRI/US Diagnostic Results : Imaging Test Ordered: US abd Impression gall stones no wall thickening Last Vital Signs Date Time Temp Pulse Resp B/P (MAP) Pulse Ox O2 Delivery O2 Flow Rate FiO2 03/12/20 16:00 97.0 81 19 138/59 (85) 97 03/12/20 15:48 Room Air Status: improved Disposition: ADMITTED INPATIENT Condition: Serious Walker Jennings MD Mar 12, 2020 10:45
[2020-03-12] MEDS ORDERED: VALPROIC ACID250 MG PO (10:49)
[2020-03-12] MEDS ORDERED: ACETAMINOPHEN325 M1 ORAL (10:49)
[2020-03-12 11:00] VITALS: BP 142/84
[2020-03-12 11:23] LABS: BASOPHILS % (AUTO) 1.2 % (0.0-2.0); EOSINOPHILS % (AUTO) 0.4 % (0.0-3.0); HEMATOCRIT 38.4 % (37.0-47.0); HEMOGLOBIN 12.9 G/DL (12.0-16.0); LYMPHOCYTES % (AUTO) 31.6 % (20.0-45.0); MEAN CORPUSCULAR VOLUME 92 FL (80-99); MONOCYTES % (AUTO) 17.9 % (1.0-10.0); NEUTROPHILS % (AUTO) 48.9 % (45.0-75.0); PLATELET COUNT 252 K/UL (150-450); RED BLOOD COUNT 4.15 M/UL (4.20-5.40); RED CELL DISTRIBUTION WIDTH 14.8 % (11.6-14.8); WHITE BLOOD COUNT 7.3 K/UL (4.8-10.8)
[2020-03-12 11:24] LABS: APPEARANCE,URINE SLIGHTLY CLOUDY; BILIRUBIN, URINE NEGATIVE (NEGATIVE); GLUCOSE, URINE (UA) 2+ (NEGATIVE); KETONES,URINE NEGATIVE (NEGATIVE); LEUKOCYTE ESTERASE ,URINE 1+ (NEGATIVE); NITRITE,URINE NEGATIVE (NEGATIVE); PH,URINE 5 (4.5-8.0); PROTEIN,URINE 2+ (NEGATIVE); UROBILINOGEN,URINE NORMAL MG/DL (0.0-1.0)
[2020-03-12 11:27] LABS: COLOR,URINE YELLOW
[2020-03-12 11:33] LABS: INR 0.9 (0.9-1.1)
[2020-03-12 11:35] LABS: ANION GAP 7 mmol/L (5-15); BLOOD UREA NITROGEN 42 mg/dL (7-18); CALCIUM 8.7 MG/DL (8.5-10.1); CARBON DIOXIDE 30 MMOL/L (21-32); CHLORIDE 97 MMOL/L (98-107); CREATININE 1.8 MG/DL (0.55-1.30); POTASSIUM 5.2 MMOL/L (3.5-5.1); SODIUM 134 MMOL/L (136-145)
[2020-03-12 11:50] LABS: ALANINE AMINOTRANSFERASE 90 U/L (12-78); ALBUMIN 3.2 G/DL (3.4-5.0); ALBUMIN/GLOBULIN RATIO 0.7 (1.0-2.7); ALKALINE PHOSPHATASE 88 U/L (46-116); ASPARTATE AMINO TRANSFERASE 101 U/L (15-37); BILIRUBIN,TOTAL 0.3 MG/DL (0.2-1.0); CREATINE KINASE 816 U/L (26-308); FERRITIN 213 NG/ML (8-388); LACTATE DEHYDROGENASE 276 U/L (81-234)
[2020-03-12] MEDS ORDERED: Cefepime HCl 1 GM in D5W 55 ML IVPB ONE (12:15)
--- NOTE | 2020-03-12 12:44 | Diagnostic Imaging Report ---
EXAM: XR Chest, 1 View CLINICAL HISTORY: ABD PAIN TECHNIQUE: Frontal view of the chest. COMPARISON: Chest radiograph on 09/24/2019 FINDINGS: Hardware: None. Lungs/pleura: Similar elevation of the right hemidiaphragm. No focal consolidation. No pleural effusion or pneumothorax. Heart/mediastinum: Normal. No cardiomegaly. Soft tissues: Unremarkable. Bones: No acute fracture. Upper abdomen: Normal. IMPRESSION: No acute disease identified.
--- NOTE | 2020-03-12 13:11 | Diagnostic Imaging Report ---
EXAM: US Abdomen Complete CLINICAL HISTORY: ABD PAIN TECHNIQUE: Real-time ultrasound of the abdomen with image documentation. COMPARISON: Ultrasound abdomen on 09/17/2019 FINDINGS: Liver: Liver measures 14.4 cm. No intrahepatic bile duct dilation. Gallbladder: Stones and sludge in the gallbladder. Nonspecific mild prominence of the gallbladder wall which appears to contain calcifications. No significant pericholecystic fluid. Negative sonographic Vargas's sign. Common bile duct: Normal common bile duct measuring 3.3 mm. No stones. No dilation. Pancreas: Pancreas is not well-visualized due to overlying bowel gas. Kidneys: Right kidney measures 8.8 cm in length. No hydronephrosis or stone. Left kidney measures 9.6 cm in length. No hydronephrosis. Nonobstructing left renal stones measuring up to 10 mm. Spleen: Spleen measures 8.8 cm. No focal lesion. Aorta: Unremarkable. No aneurysm. Inferior vena cava: Unremarkable. Free fluid: No ascites. IMPRESSION: 1. Stones and sludge in the gallbladder. Nonspecific mild prominence of the gallbladder wall which appears to contain calcifications. No significant pericholecystic fluid. Negative sonographic Vargas's sign. 2. Left renal stones.
[2020-03-12 16:00] VITALS: BP 138/59
--- NOTE | 2020-03-12 16:56 | Cardiac Electrophysiology PN ---
Subjective Subjective [id number] Objective Last 24 Hour Vital Signs Date Time Temp Pulse Resp B/P (MAP) Pulse Ox O2 Delivery O2 Flow Rate FiO2 03/12/20 15:48 Room Air 03/12/20 11:00 90 20 Room Air 03/12/20 11:00 98.8 20 142/84 95 Room Air 03/12/20 10:23 98.8 90 20 142/84 (103) 95 Room Air Laboratory Tests Test 03/12/20 10:40 03/12/20 13:00 White Blood Count 7.3 K/UL (4.8-10.8) Red Blood Count 4.15 M/UL (4.20-5.40) L Hemoglobin 12.9 G/DL (12.0-16.0) Hematocrit 38.4 % (37.0-47.0) Mean Corpuscular Volume 92 FL (80-99) Mean Corpuscular Hemoglobin 31.0 PG (27.0-31.0) Mean Corpuscular Hemoglobin Concent 33.5 G/DL (32.0-36.0) Red Cell Distribution Width 14.8 % (11.6-14.8) Platelet Count 252 K/UL (150-450) Mean Platelet Volume 6.8 FL (6.5-10.1) Neutrophils (%) (Auto) 48.9 % (45.0-75.0) Lymphocytes (%) (Auto) 31.6 % (20.0-45.0) Monocytes (%) (Auto) 17.9 % (1.0-10.0) H Eosinophils (%) (Auto) 0.4 % (0.0-3.0) Basophils (%) (Auto) 1.2 % (0.0-2.0) Prothrombin Time 10.5 SEC (9.30-11.50) Prothromb Time International Ratio 0.9 (0.9-1.1) Activated Partial Thromboplast Time 24 SEC (23-33) D-Dimer 0.71 mg/L FEU (0.00-0.49) H Urine Color Yellow Urine Appearance Slightly cloudy Urine pH 5 (4.5-8.0) Urine Specific [place] 1.020 (1.005-1.035) Urine Protein 2+ (NEGATIVE) H Urine Glucose (UA) 2+ (NEGATIVE) H Urine Ketones Negative (NEGATIVE) Urine Blood 4+ (NEGATIVE) H Urine Nitrite Negative (NEGATIVE) Urine Bilirubin Negative (NEGATIVE) Urine Urobilinogen Normal MG/DL (0.0-1.0) Urine Leukocyte Esterase 1+ (NEGATIVE) H Urine RBC 5-10 /HPF (0 - 2) H Urine WBC 0-2 /HPF (0 - 2) Urine Squamous Epithelial Cells Moderate /LPF (NONE/OCC) H Urine Bacteria Few /HPF (NONE) Sodium Level 134 MMOL/L (136-145) L Potassium Level 5.2 MMOL/L (3.5-5.1) H Chloride Level 97 MMOL/L (98-107) L Carbon Dioxide Level 30 MMOL/L (21-32) Anion Gap 7 mmol/L (5-15) Blood Urea Nitrogen 42 mg/dL (7-18) H Creatinine 1.8 MG/DL (0.55-1.30) H Estimat Glomerular Filtration Rate 27.9 mL/min (>60) Glucose Level 434 MG/DL (74-106) H Lactic Acid Level 3.10 mmol/L (0.4-2.0) H 1.50 mmol/L (0.66-2.22) Calcium Level 8.7 MG/DL (8.5-10.1) Magnesium Level 2.6 MG/DL (1.8-2.4) H Ferritin 213 NG/ML (8-388) Total Bilirubin 0.3 MG/DL (0.2-1.0) Aspartate Amino Transf (AST/SGOT) 101 U/L (15-37) H Alanine Aminotransferase (ALT/SGPT) 90 U/L (12-78) H Alkaline Phosphatase 88 U/L (46-116) Lactate Dehydrogenase 276 U/L (81-234) H Total Creatine Kinase 816 U/L (26-308) H Troponin I 0.042 ng/mL (0.000-0.056) C-Reactive Protein, Quantitative 0.5 mg/dL (0.00-0.90) Pro-B-Type Natriuretic Peptide 1011 pg/mL (0-125) H Total Protein 7.9 G/DL (6.4-8.2) Albumin 3.2 G/DL (3.4-5.0) L Globulin 4.7 g/dL Albumin/Globulin Ratio 0.7 (1.0-2.7) L Lipase 281 U/L (73-393) Noe Galdamez MD Mar 12, 2020 16:56
[2020-03-12 20:00] VITALS: BP 123/78
--- NOTE | 2020-03-12 20:14 | Consultation ---
DATE OF CONSULTATION: 03/12/2020 CONSULTING PHYSICIAN: Noe Galdamez M.D. REFERRING PHYSICIAN: Amelie Rois M.D. REASON FOR CONSULTATION: Shortness of breath, abdominal pain, loss of sense of smell and taste will be ruled out for positive COVID. HISTORY OF PRESENT ILLNESS: The patient is a 69-year-old lady with history of hypertension was brought in for 2 to 4 days of abdominal pain as well as nausea and vomiting. The pain was severe 10/10. The patient also had loss of sense of smell and taste and the patient was then admitted to be ruled out for COVID. The patient denies any prior myocardial infarction or coronary artery disease or congestive heart failure. She vomits food. There is no coffee-ground or blood. REVIEW OF SYSTEMS: Negative other than what was mentioned in history of present illness. PAST MEDICAL HISTORY: As mentioned above. FAMILY HISTORY: Noncontributory. SOCIAL HISTORY: She denies smoke or drink alcohol. PHYSICAL EXAMINATION: VITAL SIGNS: Show blood pressure of 142/84, pulse is 90, respirations 18, and temperature is 98.8. HEAD AND NECK: No JVD. LUNGS: Coarse rhonchi. CARDIOVASCULAR: Regular S1 and S2 with no gallop or murmur. ABDOMEN: Soft. EXTREMITIES: No pitting edema. LABORATORY AND DIAGNOSTIC DATA: Her labs show white count 7.2, hemoglobin 12.9, hematocrit 38.5, and platelet count 252. Sodium 134, potassium 5.2, BUN of 42, creatinine 1.8, and glucose of 434. First troponin is negative. ASSESSMENT AND PLAN: 1. Shortness of breath due to COVID, especially, the patient has loss of sense of smell and taste and diarrhea that has been ruled out. We will get an echocardiogram and completely rule out MD protocol. 2. History of hypertension. Resume the other antihypertensive agents. The patient is on Lasix to continue. 3. Uncontrolled diabetes, on metformin and insulin for further evaluation by Dr. Munoz. On the previous admission in September, the patient was on Lasix and Cardizem 30 mg b.i.d. p.r.n. clonidine. 4. History of contracted gallbladder, which is packed with stones by abdominal ultrasound. 5. History of COPD and pulmonary hypertension. 6. Hyperlipidemia. Thank you very much for allowing me to participate in the care of this patient. Please do not hesitate to contact me for any questions regarding my evaluation. Noe Galdamez M.D. DR: Aung JOB#: [id number] CC:
[2020-03-12] MEDS: NovoLOG Insulin Flexpen SUBQ SCH (21:05)
[2020-03-13] VITALS: BP 122/74
[2020-03-13 04:30] VITALS: BP 136/54
[2020-03-13] MEDS: NovoLOG Insulin Flexpen SUBQ SCH ×6 (06:28→21:00)
[2020-03-13 07:02] LABS: BASOPHILS % (AUTO) 1.7 % (0.0-2.0); EOSINOPHILS % (AUTO) 1.3 % (0.0-3.0); HEMATOCRIT 33.4 % (37.0-47.0); HEMOGLOBIN 11.7 G/DL (12.0-16.0); LYMPHOCYTES % (AUTO) 21.8 % (20.0-45.0); MEAN CORPUSCULAR VOLUME 89 FL (80-99); MONOCYTES % (AUTO) 11.6 % (1.0-10.0); NEUTROPHILS % (AUTO) 63.6 % (45.0-75.0); PLATELET COUNT 216 K/UL (150-450); RED BLOOD COUNT 3.75 M/UL (4.20-5.40); WHITE BLOOD COUNT 7.1 K/UL (4.8-10.8)
--- NOTE | 2020-03-13 07:29 | Consultation ---
DATE OF CONSULTATION: 03/13/2020 CONSULTING PHYSICIAN: Marcin Munoz M.D. REFERRING PHYSICIAN: Amelie Rios MD. REASON FOR CONSULTATION: Diabetes management. HISTORY OF PRESENT ILLNESS: The patient is a 69-year-old female with past medical history of diabetes, insulin treated, presented to the hospital with glucose of 400, loss of smell and taste, nausea, vomiting, abdominal pain, admitted for rule out COVID. Glucose is also elevated. No evidence of ketoacidosis. Lactic acid was positive. PAST MEDICAL HISTORY: 1. Type 2 diabetes. 2. Hypertension. PAST SURGICAL HISTORY: None. SOCIAL HISTORY: No smoking, alcohol, or drug use. REVIEW OF SYSTEMS: As per HPI. MEDICATIONS: Reviewed and reconciled. FAMILY HISTORY: Noncontributory. PHYSICAL EXAMINATION: VITAL SIGNS: Blood pressure 166/54, heart rate 98, heart rate 80, and temperature 99. HEENT: Pupils are reactive to light. Conjunctivae pink. NECK: No JVD. No thyromegaly. HEART: Regular rate and rhythm. ABDOMEN: Positive bowel sounds. EXTREMITIES: No clubbing, cyanosis, edema. LABORATORY VALUES: WBC 7, hemoglobin 12.9, hematocrit 38.4, platelets of 252. Sodium 134, potassium 5.2, chloride 97, bicarb 30, BUN 42, creatinine 1.8, glucose of 434, LDH is 276. TSH pending. A1c is pending. Lactic acid 3.1. Repeat was 1.5. DIAGNOSIS: 1. Rule out COVID. 2. Diabetes out of control. 3. Lactic acidosis. PLAN: 1. Start Levemir 18 units daily. 2. Start NovoLog 6 units before each meal. 3. NovoLog sliding scale before meals and at bedtime. 4. Hold metformin. 5. Check A1c. 6. Further adjustment according to the blood glucose values. Thank you, Dr. Riso, for the courtesy of this consultation. Marcin Munoz M.D. DR: Bryanna JOB#: [id number] CC:
[2020-03-13 07:35] LABS: PHOSPHORUS 3.7 MG/DL (2.5-4.9)
[2020-03-13 08:00] VITALS: BP 133/81
[2020-03-13 08:08] LABS: ALANINE AMINOTRANSFERASE 84 U/L (12-78); ALBUMIN 2.9 G/DL (3.4-5.0); ALBUMIN/GLOBULIN RATIO 0.7 (1.0-2.7); ALKALINE PHOSPHATASE 72 U/L (46-116); ANION GAP 9 mmol/L (5-15); ASPARTATE AMINO TRANSFERASE 92 U/L (15-37); BILIRUBIN,TOTAL 0.3 MG/DL (0.2-1.0); BLOOD UREA NITROGEN 25 mg/dL (7-18); CALCIUM 7.9 MG/DL (8.5-10.1); CARBON DIOXIDE 26 MMOL/L (21-32); CHLORIDE 102 MMOL/L (98-107); CHOLESTEROL 111 MG/DL (< 200); CREATININE 1.2 MG/DL (0.55-1.30); HDL CHOLESTEROL 36 MG/DL (40-60); POTASSIUM 5.1 MMOL/L (3.5-5.1); SODIUM 137 MMOL/L (136-145); TRIGLYCERIDES 185 MG/DL (30-150)
[2020-03-13] MEDS: Levemir Flexpen SUBQ SCH (09:41)
[2020-03-13] MEDS: Furosemide 40mg tab ORAL SCH (09:42)
[2020-03-13 12:00] VITALS: BP 127/79
--- NOTE | 2020-03-13 13:26 | Consultation ---
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 This is associated with nausea and vomiting. When the pain hits it severe. She rates it 10/10. Currently she says the pain is 8/10. Her physician reports that she has reported a loss of sense of smell and taste and is concerned about possible COVID-19 infection. She says that the loss of taste is more intermittent. She denies any diarrhea. She last moved her bowels yesterday without any blood. She denies any constipation although she is complaining about some rectal pain. She has had urinary tract infections in the past but denies any dysuria at the moment. When she vomits his food stuff and that there is no coffee-ground or blood. She has been able to keep down some liquids. She is uncertain with what medicines have been used for pain. She denies fevers or chills. In September and ultrasound performed revealed multiple gallstones. Allergies: Coded Allergies: No Known Allergies (Unverified , 11/08/15) COVID-19 Screening Contact w/high risk pt: Yes Recent Travel to affected area: No Experienced COVID-19 symptoms?: Yes Coronavirus symptoms experienc: Loss of taste or smell, Nausea/Vomiting Medication History Scheduled Acidophilus/Bulgaricus (Floranex Granules Packet), 1 EACH GT TID, (Reported) Amantadine HCl (Amantadine), 100 MG ORAL TWICE A DAY, (Reported) Ascorbic Acid* (Ascorbic Acid*), 500 MG GT DAILY, (Reported) Ascorbic Acid* (Vitamin C*), 500 MG ORAL DAILY, (Reported) Atorvastatin Calcium* (Atorvastatin Calcium*), 10 MG PO BEDTIME, (Reported) Carbidopa/Levodopa 25-100 Mg* (Sinemet 25-100 Mg Tablet*), 1 TAB ORAL THREE TIMES A DAY, (Reported) Citalopram Hydrobromide (Citalopram Hbr), 10 MG ORAL DAILY, (Reported) Citalopram Hydrobromide* (Celexa*), 20 MG ORAL DAILY, (Reported) Citalopram Hydrobromide* (Citalopram Hbr*), 20 MG ORAL DAILY, (Reported) Clonidine Hcl* (Catapres*), 0.1 MG PO Q8HR, (Reported) Cranberry Fruit (Cranberry), 450 MG PO DAILY, (Reported) Docusate Sodium* (Docusate Sodium*), 100 MG PO DAILY, (Reported) Docusate Sodium* (Colace*), 100 MG ORAL THREE TIMES A DAY, (Reported) Escitalopram Oxalate* (Lexapro*), 10 MG ORAL DAILY, (Reported) Ferrous Sulfate* (Ferrous Sulfate*), 325 MG ORAL DAILY, (Reported) Furosemide* (Lasix*), 40 MG ORAL DAILY, (Reported) Furosemide* (Lasix*), 40 MG ORAL DAILY, (Reported) Furosemide* (Lasix*), 40 MG ORAL DAILY, (Reported) Gabapentin* (Neurontin*), 100 MG PO DAILY, (Reported) Insulin Glargine (Lantus), 15 SUBQ BEDTIME, (Reported) Insulin Lispro (Humalog), 10 SUBQ THREE TIMES A DAY, (Reported) Insulin Regular, Human* (Novolin R*), 0 SUBQ NEEDED, (Reported) Magnesium Hydroxide (Milk of Magnesia), 30 ML ORAL DAILY, (Reported) Metformin Hcl* (Metformin Hcl*), 1,000 MG GT BID, (Reported) Nateglinide* (Starlix*), 60 MG ORAL THREE TIMES A DAY, (Reported) Pantoprazole* (Protonix*), 40 MG ORAL EVERY 12 HOURS, (Reported) Polyethylene Glycol 3350* (Miralax*), 17 GM ORAL DAILY, (Reported) Valproic Acid (Valproic Acid), 125 MG GT EVERY 12 HOURS, (Reported) Valproic Acid (Valproic Acid), 500 MG PO DAILY, (Reported) Scheduled PRN Acetaminophen* (Acetaminophen 325MG Tablet*), 650 MG ORAL Q4H PRN for For Pain, (Reported) Albuterol Sulfate* (Albuterol Sulfate Hhn*), Unknown Dose INH Q4H PRN for Sh ortness of Breath, (Reported) Diphenhydramine Hcl* (Benadryl*), 25 MG ORAL Q4HR PRN for Itching, (Reported) Lactulose (Lactulose*), 15 ML PO Q8HR PRN for Constipation, (Reported) Mirtazapine* (Mirtazapine*), 7.5 MG ORAL BEDTIME PRN for Insomnia, (Reported) Miscellaneous Medications Acetaminophen (Acetaminophen), 160 MG GT, (Reported) B Complex & C No.20/Folic Acid (Virt-Caps Softgel), 1 MG PO, (Reported) Bisacodyl (Dulcolax), 10 MG RC, (Reported) Glucagon,Human Recombinant (Glucagen), 1 MG IJ, (Reported) Insulin Aspart (Novolog Flexpen), (Reported) Insulin Detemir (Levemir Flexpen), 10 SUBQ, (Reported) Multivit-Min/Iron Fum/Folic AC (Fxtkt-Cxqjagb-Pdovawuv Tablet), 1 EACH PO, (Reported) Valproate Sodium (Valproic Acid), 250 MG PO, (Reported) Valproic Acid (Valproic Acid), 500 MG PO, (Reported) Patient History History Provided By: Patient, Medical Record, PMD Healthcare decision maker Resuscitation status Advanced Directive on File Review of Systems Review of Symptoms General ROS: no weight loss or fever Psychological ROS: no depression or mood changes, no memory loss Ophthalmic ROS: no visual changes or eye irritation ENT ROS: no nasal congestion, hearing loss, dizziness Allergy and Immunology ROS: no allergic symptoms or urticaria Hematological and Lymphatic ROS: no swollen glands, unusual bleeding or bruising Endocrine ROS: no polyuria, polydipsia, weight changes, temperature intolerance Respiratory ROS: no cough, shortness of breath, or wheezing Cardiovascular ROS: no chest pain or dyspnea on exertion Gastrointestinal ROS: denies abdominal pain, bright red blood in stool. Musculoskeletal ROS: no myalgias or arthralgias Neurological ROS: no TIA or stroke symptoms Dermatological ROS: no new or changing skin lesions, rashes or pruritis Physical Exam Physical Exam General appearance: alert, cooperative, no distress, appears stated age Head: Normocephalic, without obvious abnormality, atraumatic Eyes: conjunctivae/corneas clear. PERRL, EOM's intact. Fundi benign Throat: Lips, mucosa, and tongue normal. Teeth and gums normal Neck: supple, symmetrical, trachea midline, no adenopathy, thyroid: not enlarged, symmetric, no tenderness/mass/nodules, no carotid bruit and no JVD Lungs: clear to auscultation bilaterally Heart: regular rate and rhythm, S1, S2 normal, no murmur, click, rub or gallop Abdomen: soft, non-tender. Bowel sounds normal. No masses, no organomegaly Extremities: extremities normal, atraumatic, no cyanosis or edema Pulses: 2+ and symmetric Skin: Skin color, texture, turgor normal. No rashes or lesions Neurologic: Grossly normal Last 24 Hour Vital Signs Date Time Temp Pulse Resp B/P (MAP) Pulse Ox O2 Delivery O2 Flow Rate FiO2 03/13/20 09:42 96 133/81 03/13/20 09:00 Nasal Cannula 2.0 03/13/20 08:00 98.2 96 18 133/81 (98) 94 03/13/20 04:30 99.0 86 18 136/54 (81) 94 03/13/20 00:00 98.6 82 18 122/74 (90) 100 03/12/20 21:00 Nasal Cannula 2.0 03/12/20 20:00 98.6 89 18 123/78 (93) 95 03/12/20 16:00 97.0 81 19 138/59 (85) 97 03/12/20 15:48 Room Air Laboratory Tests Test 03/12/20 20:57 03/13/20 06:00 03/13/20 06:21 03/13/20 12:00 POC Whole Blood Glucose 294 MG/DL (74-106) H 311 MG/DL (74-106) H Pending White Blood Count 7.1 K/UL (4.8-10.8) Red Blood Count 3.75 M/UL (4.20-5.40) L Hemoglobin 11.7 G/DL (12.0-16.0) L Hematocrit 33.4 % (37.0-47.0) L Mean Corpuscular Volume 89 FL (80-99) Mean Corpuscular Hemoglobin 31.2 PG (27.0-31.0) H Mean Corpuscular Hemoglobin Concent 35.0 G/DL (32.0-36.0) Red Cell Distribution Width 16.0 % (11.6-14.8) H Platelet Count 216 K/UL (150-450) Mean Platelet Volume 6.3 FL (6.5-10.1) L Neutrophils (%) (Auto) 63.6 % (45.0-75.0) Lymphocytes (%) (Auto) 21.8 % (20.0-45.0) Monocytes (%) (Auto) 11.6 % (1.0-10.0) H Eosinophils (%) (Auto) 1.3 % (0.0-3.0) Basophils (%) (Auto) 1.7 % (0.0-2.0) Urine Random Sodium 36 mmol/L (20-110) Sodium Level 137 MMOL/L (136-145) Potassium Level 5.1 MMOL/L (3.5-5.1) Chloride Level 102 MMOL/L (98-107) Carbon Dioxide Level 26 MMOL/L (21-32) Anion Gap 9 mmol/L (5-15) Blood Urea Nitrogen 25 mg/dL (7-18) H Creatinine 1.2 MG/DL (0.55-1.30) Estimat Glomerular Filtration Rate 44.5 mL/min (>60) Glucose Level 314 MG/DL (74-106) #H Hemoglobin A1c 10.5 % (4.3-6.0) H Uric Acid 7.8 MG/DL (2.6-7.2) H Calcium Level 7.9 MG/DL (8.5-10.1) L Phosphorus Level 3.7 MG/DL (2.5-4.9) Magnesium Level 2.3 MG/DL (1.8-2.4) Total Bilirubin 0.3 MG/DL (0.2-1.0) Aspartate Amino Transf (AST/SGOT) 92 U/L (15-37) H Alanine Aminotransferase (ALT/SGPT) 84 U/L (12-78) H Alkaline Phosphatase 72 U/L (46-116) Troponin I 0.020 ng/mL (0.000-0.056) C-Reactive Protein, Quantitative < 0.4 mg/dL (0.00-0.90) Pro-B-Type Natriuretic Peptide 735 pg/mL (0-125) H Total Protein 7.1 G/DL (6.4-8.2) Albumin 2.9 G/DL (3.4-5.0) L Globulin 4.2 g/dL Albumin/Globulin Ratio 0.7 (1.0-2.7) L Triglycerides Level 185 MG/DL (30-150) H Cholesterol Level 111 MG/DL (< 200) LDL Cholesterol 51 mg/dL (<100) HDL Cholesterol 36 MG/DL (40-60) L Cholesterol/HDL Ratio 3.1 (3.3-4.4) L Thyroid Stimulating Hormone (TSH) 2.046 uiU/mL (0.358-3.740) Height (Feet): 5 Height (Inches): 4.00 Weight (Pounds): 185 Medications Current Medications Medications (Trade) Dose Ordered Sig/Tenzin Route PRN Reason Start Time Stop Time Status Last Admin Dose Admin Amlodipine Besylate (Norvasc) 5 mg DAILY ORAL 03/13/20 09:00 04/12/20 08:59 03/13/20 09:42 Dextrose (Dextrose 50%) 25 ml Q30M PRN IV Hypoglycemia 03/12/20 16:45 06/10/20 16:44 Dextrose (Dextrose 50%) 50 ml Q30M PRN IV Hypoglycemia 03/12/20 16:45 06/10/20 16:44 Furosemide (Lasix) 40 mg DAILY ORAL 03/13/20 09:00 04/12/20 08:59 03/13/20 09:42 Ibuprofen (Advil) 400 mg Q6H PRN ORAL For Pain 03/12/20 16:45 04/11/20 16:44 03/13/20 06:12 Insulin Aspart (NovoLOG) BEFORE MEALS AND HS SUBQ 03/12/20 21:00 06/10/20 20:59 03/13/20 12:02 Insulin Aspart (NovoLOG) 8 units NOVOTIAC SUBQ 03/13/20 11:50 06/11/20 11:49 03/13/20 12:03 Insulin Detemir (Levemir) 24 units DAILY SUBQ 03/13/20 09:00 06/11/20 08:59 03/13/20 09:41 Ondansetron HCl (Zofran) 4 mg Q6H PRN IVP Nausea & Vomiting 03/12/20 16:45 04/11/20 16:44 Assessment/Plan Problem List: (1) Fever ICD Codes: R50.9 - Fever, unspecified SNOMED: 488676763 (2) Hypoalbuminemia ICD Codes: E88.09 - Other disorders of plasma-protein metabolism, not elsewhere classified SNOMED: 716086602 (3) Abnormal LFTs ICD Codes: R79.89 - Other specified abnormal findings of blood chemistry SNOMED: 413121279 (4) Elevated CEA ICD Codes: R97.0 - Elevated carcinoembryonic antigen [CEA] SNOMED: 36798482, 839010572 (5) Vaginal discharge ICD Codes: N89.8 - Other specified noninflammatory disorders of vagina SNOMED: 563435984 (6) Vomiting and diarrhea ICD Codes: R11.10 - Vomiting, unspecified; R19.7 - Diarrhea, unspecified SNOMED: 745631067 (7) COPD exacerbation ICD Codes: J44.1 - Chronic obstructive pulmonary disease with (acute) exacerbation SNOMED: 734139920 (8) Dehydration ICD Codes: E86.0 - Dehydration SNOMED: 92150923 (9) Constipation ICD Codes: K59.00 - Constipation, unspecified SNOMED: 85483768 (10) Cholelithiasis ICD Codes: K80.20 - Calculus of gallbladder without cholecystitis without ob struction SNOMED: 236524570 (11) Severe sepsis ICD Codes: A41.9 - Sepsis, unspecified organism; R65.20 - Severe sepsis without septic shock SNOMED: 26430650 (12) Altered level of consciousness ICD Codes: R40.4 - Transient alteration of awareness SNOMED: 6063023 (13) MER (acute kidney injury) ICD Codes: N17.9 - Acute kidney failure, unspecified SNOMED: 5503956, 72839727 (14) Pulmonary hypertension ICD Codes: I27.20 - Pulmonary hypertension, unspecified SNOMED: 88761236 (15) Renal insufficiency ICD Codes: N28.9 - Disorder of kidney and ureter, unspecified SNOMED: 833491386, 104129629 (16) Hyperglycemia ICD Codes: R73.9 - Hyperglycemia, unspecified SNOMED: 23569738 (17) Gall stones ICD Codes: K80.20 - Calculus of gallbladder without cholecystitis without obstr uction SNOMED: 324622090 (18) Nausea & vomiting ICD Codes: R11.2 - Nausea with vomiting, unspecified SNOMED: 44035894 Qualifiers: Qualified Codes: R11.2 - Nausea with vomiting, unspecified (19) Elevated lactic acid level ICD Codes: R79.89 - Other specified abnormal findings of blood chemistry SNOMED: 5804406 (20) Abdominal pain Assessment & Plan: 69F with acute abdominal pain. likely biliary colic? resolved now does not seem likely cholecystitis as resolved quickly US noted. lft's mild elevated improving lip wnl pain resolving no n/v US noted lab snoted okay for diet cont iv fluids cont abx will follow with serial exams Liver: Liver measures 14.4 cm. No intrahepatic bile duct dilation. Gallbladder: Stones and sludge in the gallbladder. Nonspecific mild prominence of the gallbladder wall which appears to contain calcifications. No significant pericholecystic fluid. Negative sonographic Vargas's sign. Common bile duct: Normal common bile duct measuring 3.3 mm. No stones. No dilation. Pancreas: Pancreas is not well-visualized due to overlying bowel gas. Kidneys: Right kidney measures 8.8 cm in length. No hydronephrosis or stone. Left kidney measures 9.6 cm in length. No hydronephrosis. Nonobstructing left renal stones measuring up to 10 mm. Spleen: Spleen measures 8.8 cm. No focal lesion. Aorta: Unremarkable. No aneurysm. Inferior vena cava: Unremarkable. Free fluid: No ascites. IMPRESSION: 1. Stones and sludge in the gallbladder. Nonspecific mild prominence of the gallbladder wall which appears to contain calcifications. No significant pericholecystic fluid. Negative sonographic Vargas's sign. 2. Left renal stones. ICD Codes: R10.9 - Unspecified abdominal pain SNOMED: 32127236 Qualifiers: Qualified Codes: R10.11 - Right upper quadrant pain (21) UTI (urinary tract infection) ICD Codes: N39.0 - Urinary tract infection, site not specified SNOMED: 41727863 (22) Encephalopathy ICD Codes: G93.40 - Encephalopathy, unspecified SNOMED: 53945465, 172878011 (23) Anemia ICD Codes: D64.9 - Anemia, unspecified SNOMED: 486746446 (24) Hyperlipidemia associated with type 2 diabetes mellitus ICD Codes: E11.69 - Type 2 diabetes mellitus with other specified complication; E78.5 - Hyperlipidemia, unspecified SNOMED: 470828270, 476685836355 (25) Type 2 diabetes mellitus ICD Codes: E11.9 - Type 2 diabetes mellitus without complications SNOMED: 59196637, 510922045 (26) Azotemia ICD Codes: R79.89 - Other specified abnormal findings of blood chemistry SNOMED: 136093332 Oliver Last Mar 13, 2020 13:26
[2020-03-13] MEDS ORDERED: HUMALOG 75/255 UNIT1 SUBQ (14:41)
[2020-03-13] MEDS ORDERED: ACETAMINOPHEN500 M3 ORAL (14:41)
[2020-03-13] MEDS ORDERED: HYDROCORTISO453.6 G2 TP (14:41)
[2020-03-13] MEDS ORDERED: RENA-VITE TABL0.8 M1 PO (14:41)
[2020-03-13] MEDS ORDERED: ATORVASTATIN CA10 MG ORAL (14:41)
--- NOTE | 2020-03-13 14:47 | Cardiac Electrophysiology PN ---
Assessment/Plan Assessment/Plan 1. Shortness of breath due to COVID, especially, the patient has loss of sense of smell and taste and diarrhea that has been ruled out. Echocardiogram EF 65% and completely ruled out for [place] . 2. History of hypertension. On Lasix 40 and Norvasc 5 daily 3. Uncontrolled diabetes, on metformin and insulin for further evaluation by Dr. Munoz. 4. History of contracted gallbladder, which is packed with stones by abdominal ultrasound. 5. History of COPD and pulmonary hypertension. 6. Hyperlipidemia. Subjective Subjective Being ruled out for Covid Objective Last 24 Hour Vital Signs Date Time Temp Pulse Resp B/P (MAP) Pulse Ox O2 Delivery O2 Flow Rate FiO2 03/13/20 09:42 96 133/81 03/13/20 09:00 Nasal Cannula 2.0 03/13/20 08:00 98.2 96 18 133/81 (98) 94 03/13/20 04:30 99.0 86 18 136/54 (81) 94 03/13/20 00:00 98.6 82 18 122/74 (90) 100 03/12/20 21:00 Nasal Cannula 2.0 03/12/20 20:00 98.6 89 18 123/78 (93) 95 03/12/20 16:00 97.0 81 19 138/59 (85) 97 03/12/20 15:48 Room Air Laboratory Tests Test 03/12/20 20:57 03/13/20 06:00 03/13/20 06:21 03/13/20 12:00 POC Whole Blood Glucose 294 MG/DL (74-106) H 311 MG/DL (74-106) H Pending White Blood Count 7.1 K/UL (4.8-10.8) Red Blood Count 3.75 M/UL (4.20-5.40) L Hemoglobin 11.7 G/DL (12.0-16.0) L Hematocrit 33.4 % (37.0-47.0) L Mean Corpuscular Volume 89 FL (80-99) Mean Corpuscular Hemoglobin 31.2 PG (27.0-31.0) H Mean Corpuscular Hemoglobin Concent 35.0 G/DL (32.0-36.0) Red Cell Distribution Width 16.0 % (11.6-14.8) H Platelet Count 216 K/UL (150-450) Mean Platelet Volume 6.3 FL (6.5-10.1) L Neutrophils (%) (Auto) 63.6 % (45.0-75.0) Lymphocytes (%) (Auto) 21.8 % (20.0-45.0) Monocytes (%) (Auto) 11.6 % (1.0-10.0) H Eosinophils (%) (Auto) 1.3 % (0.0-3.0) Basophils (%) (Auto) 1.7 % (0.0-2.0) Urine Random Sodium 36 mmol/L (20-110) Sodium Level 137 MMOL/L (136-145) Potassium Level 5.1 MMOL/L (3.5-5.1) Chloride Level 102 MMOL/L (98-107) Carbon Dioxide Level 26 MMOL/L (21-32) Anion Gap 9 mmol/L (5-15) Blood Urea Nitrogen 25 mg/dL (7-18) H Creatinine 1.2 MG/DL (0.55-1.30) Estimat Glomerular Filtration Rate 44.5 mL/min (>60) Glucose Level 314 MG/DL (74-106) #H Hemoglobin A1c 10.5 % (4.3-6.0) H Uric Acid 7.8 MG/DL (2.6-7.2) H Calcium Level 7.9 MG/DL (8.5-10.1) L Phosphorus Level 3.7 MG/DL (2.5-4.9) Magnesium Level 2.3 MG/DL (1.8-2.4) Total Bilirubin 0.3 MG/DL (0.2-1.0) Aspartate Amino Transf (AST/SGOT) 92 U/L (15-37) H Alanine Aminotransferase (ALT/SGPT) 84 U/L (12-78) H Alkaline Phosphatase 72 U/L (46-116) Troponin I 0.020 ng/mL (0.000-0.056) C-Reactive Protein, Quantitative < 0.4 mg/dL (0.00-0.90) Pro-B-Type Natriuretic Peptide 735 pg/mL (0-125) H Total Protein 7.1 G/DL (6.4-8.2) Albumin 2.9 G/DL (3.4-5.0) L Globulin 4.2 g/dL Albumin/Globulin Ratio 0.7 (1.0-2.7) L Triglycerides Level 185 MG/DL (30-150) H Cholesterol Level 111 MG/DL (< 200) LDL Cholesterol 51 mg/dL (<100) HDL Cholesterol 36 MG/DL (40-60) L Cholesterol/HDL Ratio 3.1 (3.3-4.4) L Thyroid Stimulating Hormone (TSH) 2.046 uiU/mL (0.358-3.740) Microbiology Date/Time Source Procedure Growth Status 03/12/20 13:00 Rectum Received Objective HEAD AND NECK: No JVD. LUNGS: Coarse rhonchi. CARDIOVASCULAR: Regular S1 and S2 with no gallop or murmur. ABDOMEN: Soft. EXTREMITIES: No pitting edema. Noe Galdamez MD Mar 13, 2020 14:47
[2020-03-13 16:00] VITALS: BP 133/72
[2020-03-13] MEDS: Azithromycin 250mg tab ORAL SCH (16:46)
--- NOTE | 2020-03-13 18:44 | Consultation ---
DATE OF CONSULTATION: 03/13/2020 INFECTIOUS DISEASE CONSULTATION CONSULTING PHYSICIAN: Rogelio Martinez MD PRIMARY ATTENDING PHYSICIAN: Amelie Rios MD REASON FOR CONSULT: COPD, rule out of COVID-19. HISTORY OF PRESENT ILLNESS: This is a 69-year-old white female admitted yesterday from a nursing facility complaining of abdominal pain and loss of smell and taste. She was concerned about COVID-19. The patient also had shortness of breath. She has COPD and is getting oxygen in the senior care, but says that she has more productive cough. PAST MEDICAL HISTORY: Parkinson disease, cholelithiasis, pulmonary hypertension, diastolic CHF, anemia, and depression. ALLERGIES: No known drug allergies. MEDICATIONS: Insulin aspart, insulin detemir, Lasix, amlodipine, and ibuprofen. SOCIAL HISTORY: shelter resident. Former smoker. . She has no child. REVIEW OF SYSTEMS: No fever. No chills. She recently has productive cough more than before. No chest pain. No nausea. No vomiting. No dysuria. PHYSICAL EXAMINATION: VITAL SIGNS: Temperature 98.2, pulse 93, blood pressure 127/79. GENERAL APPEARANCE: No acute distress. HEAD AND NECK: Getting oxygen by nasal cannula. She has pink conjunctivae. HEART: Normal rate. LUNGS: Clear. ABDOMEN: Soft, nontender. EXTREMITIES: No edema. NEUROLOGIC: She is awake, alert, and responsive. She has tremor in arms. LABORATORY AND DIAGNOSTIC DATA: WBC 7.1, hemoglobin 11.7, hematocrit 33.7, and platelet is 216,000. Glucose is 311, sodium 137, potassium 5.1, chloride 102, bicarbonate 26, BUN 25, creatinine 1.2. AST 82, ALT 84, albumin 2.9. Nasal MRSA positive. Chest x-ray showed no acute disease. Abdominal ultrasound showed cholelithiasis and left kidney stone. IMPRESSION: COPD, may have mild exacerbation. The patient is MRSA positive. We will try to rule out COVID-19. She has diabetes mellitus with hyperglycemia, pulmonary hypertension, diastolic CHF, Parkinson disease, elevated transaminase, and mild anemia. RECOMMENDATION: We will start on Zithromax. We will follow up the COVID test. We will follow up the cultures. At the end of my exam, I thank Dr. Rios for involving me in the care of this patient. Rogelio Martinez M.D. DR: Francisco J JOB#: [id number] CC:
[2020-03-13 20:00] VITALS: BP 134/78
--- NOTE | 2020-03-13 21:44 | History and Physical Report ---
DATE OF ADMISSION: 03/12/2020 HISTORY OF PRESENT ILLNESS: The patient comes in, has been complaining of abdominal pain for couple of days, mostly in the right upper quadrant that was associated with vomiting. The patient also been having loss of appetite and loss of taste and also headache. Comes from a halfway. Denies diarrhea. Denies rectal bleeding. Denies constipation. Denies shortness of breath. Denies cough. Denies fever or chills. The patient has also been complaining of stuffy nose and headache. The patient's sugar is also elevated. She is also admitted for gallstones as well as azotemia, hyperkalemia, and elevated LFTs. PAST MEDICAL HISTORY: Significant for hyperlipidemia, COPD, hypertension, constipation, iron-deficiency anemia, neuropathy, NIDDM, GERD, mood disorder, history of anemia. PAST SURGICAL HISTORY: Denies. ALLERGIES: No known allergies. MEDICATIONS: Albuterol, vitamin C, Lipitor, bisacodyl, ferrous sulfate, gabapentin, insulin, Protonix, Starlix, and Depakote. FAMILY HISTORY: Noncontributory. SOCIAL HISTORY: Denies history of smoking. Denies history of alcohol or street drugs. Comes from a halfway. REVIEW OF SYSTEMS: HEENT: Denies headaches. RESPIRATORY: Denies shortness of breath. Does have stuffy nose. Denies cough. CARDIOVASCULAR: Denies chest pain. No orthopnea. GASTROINTESTINAL: Reports abdominal pain and vomiting for a couple of days. CARDIOVASCULAR: Denies chest pain. EXTREMITIES: Denies pain in the lower extremities. CENTRAL NERVOUS SYSTEM: Denies change in speech pattern. PHYSICAL EXAMINATION: VITAL SIGNS: Temperature 98.2, pulse is 96, blood pressure 133/81. HEENT: PERRLA. NECK: Supple. No lymphadenopathy. CHEST: Clear to auscultation. CARDIOVASCULAR: Regular rate and rhythm. No murmurs or extra sounds. GASTROINTESTINAL: Soft, nontender. Tender in the right upper quadrant. Abdomen is soft. No organomegaly. Positive bowel sounds. EXTREMITIES: No edema. Reflexes equal on both sides. Able to move all extremities. SKIN: Poor skin integrity per the nursing notes. Dorsalis pedis pulses are present. LABORATORY DATA: WBC of 7.3, hemoglobin of 12.9, platelets of 252. ASSESSMENT AND PLAN: Gallstones, vomiting, elevated sugar nonketotic, acute renal failure, electrolyte imbalance, hyperkalemia, elevated LFTs, loss of appetite. I have consulted following doctors. Mainly, Dr. Lsat to see if the patient cholecystectomy. Also, Dr. Munoz, Dr. Calvert, Dr. Galdamez, Dr. Last, Dr. Rogelio Martinez, and Dr. Bianchi. I have also been consulted to help with the management of the above-mentioned abnormal imaging, abnormal laboratories, and abnormal symptoms. Monitor the patient closely. Amelie Rios M.D. DR: ROBERTH JOB#: [id number] CC:
--- NOTE | 2020-03-13 23:44 | General Progress Note ---
Subjective Allergies: Coded Allergies: No Known Allergies (Unverified , 11/08/15) Objective Last 24 Hour Vital Signs Date Time Temp Pulse Resp B/P (MAP) Pulse Ox O2 Delivery O2 Flow Rate FiO2 03/13/20 20:09 Nasal Cannula 2.0 03/13/20 20:00 98.8 100 18 134/78 (96) 97 03/13/20 16:00 97.7 92 18 133/72 (92) 95 03/13/20 12:00 98.2 93 18 127/79 (95) 95 03/13/20 09:42 96 133/81 03/13/20 09:00 Nasal Cannula 2.0 03/13/20 08:00 98.2 96 18 133/81 (98) 94 03/13/20 04:30 99.0 86 18 136/54 (81) 94 03/13/20 00:00 98.6 82 18 122/74 (90) 100 Laboratory Tests 03/13/20 06:00: White Blood Count 7.1, Red Blood Count 3.75L, Hemoglobin 11.7L, Hematocrit 33.4L , Mean Corpuscular Volume 89, Mean Corpuscular Hemoglobin 31.2H, Mean Corpuscular Hemoglobin Concent 35.0, Red Cell Distribution Width 16.0H, Platelet Count 216, Mean Platelet Volume 6.3L, Neutrophils (%) (Auto) 63.6, Lymphocytes (%) (Auto) 21.8, Monocytes (%) (Auto) 11.6H, Eosinophils (%) (Auto) 1.3, Basophils (%) (Auto) 1.7, Urine Random Sodium 36, Sodium Level 137, Potassium Level 5.1, Chloride Level 102, Carbon Dioxide Level 26, Anion Gap 9, Blood Urea Nitrogen 25H, Creatinine 1.2, Estimat Glomerular Filtration Rate 44.5, Glucose Level 314#H, Hemoglobin A1c 10.5H, Uric Acid 7.8H, Calcium Level 7.9L, Phosphorus Level 3.7, Magnesium Level 2.3, Total Bilirubin 0.3, Aspartate Amino Transf (AST/SGOT) 92H, Alanine Aminotransferase (ALT/SGPT) 84H, Alkaline Phosphatase 72, Troponin I 0.020, C-Reactive Protein, Quantitative < 0.4, Pro-B-Type Natriuretic Peptide 735H, Total Protein 7.1, Albumin 2.9L, Globulin 4.2, Albumin/Globulin Ratio 0.7L, Triglycerides Level 185H, Cholesterol Level 111, LDL Cholesterol 51, HDL Cholesterol 36L, Cholesterol/HDL Ratio 3.1L, Th yroid Stimulating Hormone (TSH) 2.046 03/13/20 06:21: POC Whole Blood Glucose 311H 03/13/20 12:00: POC Whole Blood Glucose [Pending] 03/13/20 16:48: POC Whole Blood Glucose [Pending] 03/13/20 21:02: POC Whole Blood Glucose [Pending] Height (Feet): 5 Height (Inches): 4.00 Weight (Pounds): 185 Assessment/Plan Assessment/Plan: GI CONSULT Dictated Thank you P Sangeeta Moctezuma MD Mar 13, 2020 23:44
[2020-03-14] VITALS: BP 127/60
[2020-03-14 04:00] VITALS: BP 109/81
[2020-03-14] MEDS: NovoLOG Insulin Flexpen SUBQ SCH ×7 (06:13→21:05)
--- NOTE | 2020-03-14 06:42 | General Progress Note ---
Subjective ROS Limited/Unobtainable: Yes Allergies: Coded Allergies: No Known Allergies (Unverified , 11/08/15) Subjective events noted glucose values improved A1c is very high Item Value Date Time Bedside Blood Glucose 145 mg/dl H 03/14/20 0613 Bedside Blood Glucose 109 mg/dl 03/13/20 2100 Bedside Blood Glucose 127 mg/dl H 03/13/20 1651 Bedside Blood Glucose 273 mg/dl H 03/13/20 1203 Bedside Blood Glucose 311 mg/dl H 03/13/20 0941 Objective Last 24 Hour Vital Signs Date Time Temp Pulse Resp B/P (MAP) Pulse Ox O2 Delivery O2 Flow Rate FiO2 03/14/20 04:00 98.8 105 18 109/81 (90) 97 03/14/20 00:00 98.8 100 17 127/60 (82) 95 03/13/20 20:09 Nasal Cannula 2.0 03/13/20 20:00 98.8 100 18 134/78 (96) 97 03/13/20 16:00 97.7 92 18 133/72 (92) 95 03/13/20 12:00 98.2 93 18 127/79 (95) 95 03/13/20 09:42 96 133/81 03/13/20 09:00 Nasal Cannula 2.0 03/13/20 08:00 98.2 96 18 133/81 (98) 94 Intake and Output 03/13/20 03/14/20 19:00 07:00 Intake Total 480 ml Balance 480 ml Intake Oral 480 ml # Voids 2 Laboratory Tests 03/13/20 12:00: POC Whole Blood Glucose [Pending] 03/13/20 16:48: POC Whole Blood Glucose [Pending] 03/13/20 21:02: POC Whole Blood Glucose [Pending] 03/14/20 06:09: POC Whole Blood Glucose 145H Height (Feet): 5 Height (Inches): 4.00 Weight (Pounds): 185 General Appearance: no apparent distress Neck: normal alignment Cardiovascular: normal rate Respiratory/Chest: lungs clear Abdomen: normal bowel sounds Objective Current Medications Medications (Trade) Dose Ordered Sig/Tenzin Route PRN Reason Start Time Stop Time Status Last Admin Dose Admin Amlodipine Besylate (Norvasc) 5 mg DAILY ORAL 03/13/20 09:00 04/12/20 08:59 03/13/20 09:42 Azithromycin (Zithromax) 500 mg DAILY ORAL 03/13/20 16:30 03/20/20 16:29 03/13/20 16:46 Dextrose (Dextrose 50%) 25 ml Q30M PRN IV Hypoglycemia 03/12/20 16:45 06/10/20 16:44 Dextrose (Dextrose 50%) 50 ml Q30M PRN IV Hypoglycemia 03/12/20 16:45 06/10/20 16:44 Furosemide (Lasix) 40 mg DAILY ORAL 03/13/20 09:00 04/12/20 08:59 03/13/20 09:42 Ibuprofen (Advil) 400 mg Q6H PRN ORAL For Pain 03/12/20 16:45 04/11/20 16:44 03/13/20 06:12 Insulin Aspart (NovoLOG) BEFORE MEALS AND HS SUBQ 03/12/20 21:00 06/10/20 20:59 03/14/20 06:13 Insulin Aspart (NovoLOG) 8 units NOVOTIAC SUBQ 03/13/20 11:50 06/11/20 11:49 03/13/20 16:51 Insulin Detemir (Levemir) 24 units DAILY SUBQ 03/13/20 09:00 06/11/20 08:59 03/13/20 09:41 Ondansetron HCl (Zofran) 4 mg Q6H PRN IVP Nausea & Vomiting 03/12/20 16:45 04/11/20 16:44 Assessment/Plan Problem List: (1) Type 2 diabetes mellitus ICD Codes: E11.9 - Type 2 diabetes mellitus without complications SNOMED: 82933439, 155844809 (2) Hyperglycemia ICD Codes: R73.9 - Hyperglycemia, unspecified SNOMED: 79776574 (3) Renal insufficiency ICD Codes: N28.9 - Disorder of kidney and ureter, unspecified SNOMED: 869883208, 428757933 (4) Elevated lactic acid level ICD Codes: R79.89 - Other specified abnormal findings of blood chemistry SNOMED: 6763000 Assessment/Plan: continue Levemir 24 units daily continue Novolog 8 units ac tid + SSI hypoglycemia protocol in order Marcin Munoz MD Mar 14, 2020 06:42
[2020-03-14 07:16] LABS: ALBUMIN 2.8 G/DL (3.4-5.0); ALBUMIN/GLOBULIN RATIO 0.7 (1.0-2.7); BILIRUBIN,TOTAL 0.3 MG/DL (0.2-1.0); CALCIUM 7.9 MG/DL (8.5-10.1); CREATININE 1.1 MG/DL (0.55-1.30); POTASSIUM 3.7 MMOL/L (3.5-5.1)
[2020-03-14 07:30] LABS: BASOPHILS % (AUTO) 0.8 % (0.0-2.0); EOSINOPHILS % (AUTO) 0.3 % (0.0-3.0); HEMATOCRIT 32.5 % (37.0-47.0); HEMOGLOBIN 11.3 G/DL (12.0-16.0); LYMPHOCYTES % (AUTO) 24.2 % (20.0-45.0); MEAN CORPUSCULAR VOLUME 85 FL (80-99); MONOCYTES % (AUTO) 14.1 % (1.0-10.0); NEUTROPHILS % (AUTO) 60.7 % (45.0-75.0); PLATELET COUNT 202 K/UL (150-450); RED BLOOD COUNT 3.82 M/UL (4.20-5.40); RED CELL DISTRIBUTION WIDTH 15.9 % (11.6-14.8); WHITE BLOOD COUNT 5.3 K/UL (4.8-10.8)
--- NOTE | 2020-03-14 07:30 | Consultation ---
DATE OF CONSULTATION: 03/13/2020 GASTROENTEROLOGY CONSULTATION CONSULTING PHYSICIAN: Sangeeta Bianchi M.D. CHIEF COMPLAINT: I was asked to see this patient by Dr. Amelie Rios for evaluation of abdominal pain. HISTORY OF PRESENT ILLNESS: The patient is a 69-year-old woman from a retirement, who comes in for abdominal pain. She is somewhat of a poor historian and has difficulty expressing herself. She states that she is having abdominal pain for several days without nausea, vomiting, diarrhea, or constipation. However, she has vomited. In addition, she told me the pain is more on the left side than was on the right side. She does have some loss of taste and some headaches and she has been ruled out for COVID at this time. She has never had endoscopy or colonoscopy in the past. PAST MEDICAL HISTORY: History of hyperlipidemia, COPD, hypertension, constipation, iron-deficiency anemia, neuropathy, [id number] diabetes, gastroesophageal reflux, mood disorder. PAST SURGICAL HISTORY: None noted. ALLERGIES: None. FAMILY HISTORY: Noncontributory. SOCIAL HISTORY: The patient does not smoke or drink alcohol. MEDICATIONS: Albuterol, vitamin C, Lipitor, bisacodyl, ferrous sulfate, gabapentin, insulin, Protonix, Starlix, and Depakote. PHYSICAL EXAMINATION: GENERAL: Elderly woman, seen in her room. HEENT: Normocephalic and atraumatic. Dentition is poor. NECK: Supple. CHEST: Clear to auscultation. CARDIOVASCULAR: Revealed a regular rate. ABDOMEN: Soft with good bowel sounds. There was no significant tenderness on my examination. EXTREMITIES: Revealed no edema. LABORATORY AND DIAGNOSTIC DATA: Laboratory data were noted. Ultrasound was noted. The patient had a gallstone with sludge in the gallbladder. ASSESSMENT: This patient presents with somewhat of a vague abdominal complaint for several days. This combined with a gallbladder stone brings biliary colic into question. Alternatively, gastric ulcers can explain the abdominal pain. She is going to have an endoscopy. Colonic ulcers do not usually result in this type of pain, but the patient has never had a colonoscopy and this can be done at a later date. For the time being, I would follow the patient's symptoms closely. A CT scan of the abdomen and pelvis can be done when she is better to evaluate other pathology in the abdomen. Eventually, an endoscopy and colonoscopy can also be considered. The HIDA scan can also be done to evaluate the gallbladder function. RECOMMENDATIONS: Per above discussion and per orders written in the chart. Thank you for asking me to participate in the care of this patient. Sangeeta Bianchi M.D. DR: ОЛЬГА JOB#: [id number] CC: LAVELL
[2020-03-14 08:00] VITALS: BP 136/70
[2020-03-14] MEDS: Furosemide 40mg tab ORAL SCH (09:21)
[2020-03-14] MEDS: Azithromycin 250mg tab ORAL SCH (09:21)
[2020-03-14] MEDS: Levemir Flexpen SUBQ SCH (09:23)
[2020-03-14 12:00] VITALS: BP 136/85
--- NOTE | 2020-03-14 12:06 | Cardiac Electrophysiology PN ---
Assessment/Plan Assessment/Plan 1. Shortness of breath due to COVID, especially, the patient has loss of sense of smell and taste and diarrhea . Echocardiogram EF 65% and completely ruled out for [place] . 2. History of hypertension. On Lasix 40 and Norvasc 5 daily 3. Uncontrolled diabetes, on metformin and insulin for further evaluation by Dr. Munoz. 4. History of contracted gallbladder, which is packed with stones by abdominal ultrasound. 5. History of COPD and pulmonary hypertension. 6. Hyperlipidemia. Subjective Subjective Being ruled out for Covid. No new events Objective Last 24 Hour Vital Signs Date Time Temp Pulse Resp B/P (MAP) Pulse Ox O2 Delivery O2 Flow Rate FiO2 03/14/20 09:21 98 136/70 03/14/20 09:00 Nasal Cannula 2.0 03/14/20 08:00 97.7 98 20 136/70 (92) 98 03/14/20 04:00 98.8 105 18 109/81 (90) 97 03/14/20 00:00 98.8 100 17 127/60 (82) 95 03/13/20 20:09 Nasal Cannula 2.0 03/13/20 20:00 98.8 100 18 134/78 (96) 97 03/13/20 16:00 97.7 92 18 133/72 (92) 95 Intake and Output 03/13/20 03/14/20 19:00 07:00 Intake Total 480 ml 360 ml Output Total 400 ml Balance 480 ml -40 ml Intake Oral 480 ml Other 360 ml Output Urine Total 400 ml # Voids 2 Laboratory Tests Test 03/13/20 16:48 03/13/20 21:02 03/14/20 06:09 03/14/20 06:30 POC Whole Blood Glucose Pending Pending 145 MG/DL (74-106) H White Blood Count 5.3 K/UL (4.8-10.8) Red Blood Count 3.82 M/UL (4.20-5.40) L Hemoglobin 11.3 G/DL (12.0-16.0) L Hematocrit 32.5 % (37.0-47.0) L Mean Corpuscular Volume 85 FL (80-99) Mean Corpuscular Hemoglobin 29.5 PG (27.0-31.0) Mean Corpuscular Hemoglobin Concent 34.6 G/DL (32.0-36.0) Red Cell Distribution Width 15.9 % (11.6-14.8) H Platelet Count 202 K/UL (150-450) Mean Platelet Volume 7.3 FL (6.5-10.1) Neutrophils (%) (Auto) 60.7 % (45.0-75.0) Lymphocytes (%) (Auto) 24.2 % (20.0-45.0) Monocytes (%) (Auto) 14.1 % (1.0-10.0) H Eosinophils (%) (Auto) 0.3 % (0.0-3.0) Basophils (%) (Auto) 0.8 % (0.0-2.0) Erythrocyte Sedimentation Rate 74 MM/HR (0-30) H Sodium Level 136 MMOL/L (136-145) Potassium Level 3.7 MMOL/L (3.5-5.1) Chloride Level 100 MMOL/L (98-107) Carbon Dioxide Level 30 MMOL/L (21-32) Anion Gap 6 mmol/L (5-15) Blood Urea Nitrogen 20 mg/dL (7-18) H Creatinine 1.1 MG/DL (0.55-1.30) Estimat Glomerular Filtration Rate 49.3 mL/min (>60) Glucose Level 150 MG/DL (74-106) #H Calcium Level 7.9 MG/DL (8.5-10.1) L Total Bilirubin 0.3 MG/DL (0.2-1.0) Aspartate Amino Transf (AST/SGOT) 71 U/L (15-37) H Alanine Aminotransferase (ALT/SGPT) 58 U/L (12-78) Alkaline Phosphatase 69 U/L (46-116) C-Reactive Protein, Quantitative 0.6 mg/dL (0.00-0.90) Total Protein 6.9 G/DL (6.4-8.2) Albumin 2.8 G/DL (3.4-5.0) L Globulin 4.1 g/dL Albumin/Globulin Ratio 0.7 (1.0-2.7) L Amylase Level 94 U/L (25-115) Lipase 302 U/L (73-393) Hepatitis A IgM Antibody Pending Hepatitis B Surface Antigen Pending Hepatitis B Core IgM Antibody Pending Hepatitis C Antibody Pending Test 03/14/20 09:20 POC Whole Blood Glucose 267 MG/DL (74-106) H Microbiology Date/Time Source Procedure Growth Status 03/12/20 13:00 Rectum - Final NO CARBAPENEM-RESISTANT ENTEROBACTERI... Complete 03/12/20 13:00 Rectum VRE Culture - Final NO VANCOMYCIN RESISTANT ENTEROCOCCUS ... Complete 03/12/20 13:00 Nasal Nares MRSA Culture - Final Complete 03/12/20 10:40 Blood Blood Culture - Preliminary NO GROWTH AFTER 24 HOURS Resulted 03/12/20 10:25 Blood Blood Culture - Preliminary NO GROWTH AFTER 24 HOURS Resulted Objective HEAD AND NECK: No JVD. LUNGS: Coarse rhonchi. CARDIOVASCULAR: Regular S1 and S2 with no gallop or murmur. ABDOMEN: Soft. EXTREMITIES: No pitting edema. Noe Galdamez MD Mar 14, 2020 12:06
--- NOTE | 2020-03-14 15:59 | Consultation ---
DATE OF CONSULTATION: 03/14/2020 PULMONARY CONSULTATION HISTORY OF PRESENT ILLNESS: This is a 69-year-old female who came to the hospital with abdominal pain. The patient reports a recent sensation of lack of smell and taste. There was concern about COVID-19 infection. A PCR test was sent on 03/12/2020 and the results are still pending. At this time, she reports mild constipation. She reports shortness of breath. PAST MEDICAL HISTORY: Parkinson disease, cholelithiasis, diabetes mellitus, residential resident. It is notable that she did have negative COVID-19 approximately a week ago. REVIEW OF SYSTEMS: Denies any headaches, hematemesis, melena, hematochezia, or weight loss. CURRENT MEDICATIONS: Amlodipine, azithromycin, Lasix, Advil, insulin, Levemir. PHYSICAL EXAMINATION: GENERAL: A 69-year-old female. HEENT: Unremarkable. LUNGS: Clear breath sounds bilaterally. ABDOMEN: Soft. EXTREMITIES: There is no edema. NEUROLOGIC: Nonfocal. VITAL SIGNS: Blood pressure is 130/60, heart rate 97, respirations are 20. She is afebrile. O2 sat 98% use of oxygen. LABORATORY DATA: Lab testing shows BUN 20, creatinine 1.1. Glucose is 243. Hematology is normal except for , D-dimer 0.7. Urinalysis shows a few pus cells. Serology is negative. IMAGING STUDIES: X-ray chest obtained, which shows elevated right hemidiaphragm, otherwise clear lung montiel bilaterally. IMPRESSION: 1. Anosmia and dysgeusia, concern high for COVID-19 pneumonia. 2. Normoxemia . 3. Parkinson's. DISCUSSION: At this point, although there is a reason behind suspicion of COVID-19 due to her unusual symptoms of anosmia and dysgeusia, I feel it is prudent to wait for the PCR results before initiating any sort of therapy. Currently, she is not a candidate for either steroids or remdesivir given minimal symptomatology due to COVID-19 possibility. We will follow as bellows tester. Cezar Byrne M.D. DR: DEEPALI JOB#: [id number] CC:
[2020-03-14 16:00] VITALS: BP 140/78
--- NOTE | 2020-03-14 16:21 | Surgery Progress Note ---
Surgery Progress Note Subjective Additional Comments improved pain improved no n/v/f/c lab snoted and wnl diet no acute surgical intervention Objective Last 24 Hour Vital Signs Date Time Temp Pulse Resp B/P (MAP) Pulse Ox O2 Delivery O2 Flow Rate FiO2 03/14/20 12:00 99.1 97 20 136/85 (102) 98 03/14/20 09:21 98 136/70 03/14/20 09:00 Nasal Cannula 2.0 03/14/20 08:00 97.7 98 20 136/70 (92) 98 03/14/20 04:00 98.8 105 18 109/81 (90) 97 03/14/20 00:00 98.8 100 17 127/60 (82) 95 03/13/20 20:09 Nasal Cannula 2.0 03/13/20 20:00 98.8 100 18 134/78 (96) 97 I&O Intake and Output 03/13/20 03/14/20 19:00 07:00 Intake Total 480 ml 360 ml Output Total 400 ml Balance 480 ml -40 ml Intake Oral 480 ml Other 360 ml Output Urine Total 400 ml # Voids 2 Cardiovascular: RSR Respiratory: clear Abdomen: soft, flat, non-tender, present bowel sounds, non-distended Extremities: no edema, no tenderness, no cyanosis Laboratory Tests Test 03/13/20 16:48 03/13/20 21:02 03/14/20 06:09 03/14/20 06:30 POC Whole Blood Glucose Pending Pending 145 MG/DL (74-106) H White Blood Count 5.3 K/UL (4.8-10.8) Red Blood Count 3.82 M/UL (4.20-5.40) L Hemoglobin 11.3 G/DL (12.0-16.0) L Hematocrit 32.5 % (37.0-47.0) L Mean Corpuscular Volume 85 FL (80-99) Mean Corpuscular Hemoglobin 29.5 PG (27.0-31.0) Mean Corpuscular Hemoglobin Concent 34.6 G/DL (32.0-36.0) Red Cell Distribution Width 15.9 % (11.6-14.8) H Platelet Count 202 K/UL (150-450) Mean Platelet Volume 7.3 FL (6.5-10.1) Neutrophils (%) (Auto) 60.7 % (45.0-75.0) Lymphocytes (%) (Auto) 24.2 % (20.0-45.0) Monocytes (%) (Auto) 14.1 % (1.0-10.0) H Eosinophils (%) (Auto) 0.3 % (0.0-3.0) Basophils (%) (Auto) 0.8 % (0.0-2.0) Erythrocyte Sedimentation Rate 74 MM/HR (0-30) H Sodium Level 136 MMOL/L (136-145) Potassium Level 3.7 MMOL/L (3.5-5.1) Chloride Level 100 MMOL/L (98-107) Carbon Dioxide Level 30 MMOL/L (21-32) Anion Gap 6 mmol/L (5-15) Blood Urea Nitrogen 20 mg/dL (7-18) H Creatinine 1.1 MG/DL (0.55-1.30) Estimat Glomerular Filtration Rate 49.3 mL/min (>60) Glucose Level 150 MG/DL (74-106) #H Calcium Level 7.9 MG/DL (8.5-10.1) L Total Bilirubin 0.3 MG/DL (0.2-1.0) Aspartate Amino Transf (AST/SGOT) 71 U/L (15-37) H Alanine Aminotransferase (ALT/SGPT) 58 U/L (12-78) Alkaline Phosphatase 69 U/L (46-116) C-Reactive Protein, Quantitative 0.6 mg/dL (0.00-0.90) Total Protein 6.9 G/DL (6.4-8.2) Albumin 2.8 G/DL (3.4-5.0) L Globulin 4.1 g/dL Albumin/Globulin Ratio 0.7 (1.0-2.7) L Amylase Level 94 U/L (25-115) Lipase 302 U/L (73-393) Hepatitis A IgM Antibody Pending Hepatitis B Surface Antigen Pending Hepatitis B Core IgM Antibody Pending Hepatitis C Antibody Pending Test 03/14/20 09:20 03/14/20 12:11 03/14/20 16:07 POC Whole Blood Glucose 267 MG/DL (74-106) H 243 MG/DL (74-106) H 250 MG/DL (74-106) H Plan Problems: (1) Fever (2) Hypoalbuminemia (3) Abnormal LFTs (4) Elevated CEA (5) Vaginal discharge (6) Vomiting and diarrhea (7) COPD exacerbation (8) Dehydration (9) Constipation (10) Cholelithiasis (11) Severe sepsis (12) Altered level of consciousness (13) MER (acute kidney injury) (14) Pulmonary hypertension (15) Renal insufficiency (16) Hyperglycemia (17) Gall stones (18) Nausea & vomiting (19) Elevated lactic acid level (20) Abdominal pain Assessment & Plan: 69F with acute abdominal pain. likely biliary colic? resolved now does not seem likely cholecystitis as resolved quickly US noted. lft's mild elevated improving lip wnl pain resolving no n/v US noted lab snoted okay for diet cont iv fluids cont abx will follow with serial exams Liver: Liver measures 14.4 cm. No intrahepatic bile duct dilation. Gallbladder: Stones and sludge in the gallbladder. Nonspecific mild prominence of the gallbladder wall which appears to contain calcifications. No significant pericholecystic fluid. Negative sonographic Vargas's sign. Common bile duct: Normal common bile duct measuring 3.3 mm. No stones. No dilation. Pancreas: Pancreas is not well-visualized due to overlying bowel gas. Kidneys: Right kidney measures 8.8 cm in length. No hydronephrosis or stone. Left kidney measures 9.6 cm in length. No hydronephrosis. Nonobstructing left renal stones measuring up to 10 mm. Spleen: Spleen measures 8.8 cm. No focal lesion. Aorta: Unremarkable. No aneurysm. Inferior vena cava: Unremarkable. Free fluid: No ascites. IMPRESSION: 1. Stones and sludge in the gallbladder. Nonspecific mild prominence of the gallbladder wall which appears to contain calcifications. No significant pericholecystic fluid. Negative sonographic Vargas's sign. 2. Left renal stones. (21) UTI (urinary tract infection) (22) Encephalopathy (23) Anemia (24) Hyperlipidemia associated with type 2 diabetes mellitus (25) Type 2 diabetes mellitus (26) Azotemia Oliver Last Mar 14, 2020 16:21
--- NOTE | 2020-03-14 17:20 | Infectious Diseases Prog Note ---
Assessment/Plan Assessment/Plan IMPRESSION: Fever COPD, may have mild exacerbation. MRSA carrier We will try to rule out COVID-19. Diabetes mellitus with hyperglycemia, Pulmonary hypertension, Diastolic CHF, Parkinson disease, Elevated transaminase, anemia. RECOMMENDATION: Continue Zithromax add Rocephin. Repeat CXR We will follow up the COVID19 test. We will follow up the cultures. Subjective ROS Limited/Unobtainable: Yes Constitutional: Reports: fever, other - Nr=660.6 Respiratory: Reports: productive cough Genitourinary: Reports: no symptoms Allergies: Coded Allergies: No Known Allergies (Unverified , 11/08/15) Objective Last 24 Hour Vital Signs Date Time Temp Pulse Resp B/P (MAP) Pulse Ox O2 Delivery O2 Flow Rate FiO2 03/14/20 16:00 100.0 99 20 140/78 (98) 97 03/14/20 12:00 99.1 97 20 136/85 (102) 98 03/14/20 09:21 98 136/70 03/14/20 09:00 Nasal Cannula 2.0 03/14/20 08:00 97.7 98 20 136/70 (92) 98 03/14/20 04:00 98.8 105 18 109/81 (90) 97 03/14/20 00:00 98.8 100 17 127/60 (82) 95 03/13/20 20:09 Nasal Cannula 2.0 03/13/20 20:00 98.8 100 18 134/78 (96) 97 Height (Feet): 5 Height (Inches): 4.00 Weight (Pounds): 185 General Appearance: no acute distress HEENT: mucous membranes moist Respiratory/Chest: lungs clear, other - oxygen by nasal cannula Cardiovascular: normal rate Abdomen: soft, non tender Extremities: no edema Neurologic/Psychiatric: alert, responsive, other - tremor Microbiology Date/Time Source Procedure Growth Status 03/12/20 13:00 Rectum - Final NO CARBAPENEM-RESISTANT ENTEROBACTERI... Complete 03/12/20 13:00 Rectum VRE Culture - Final NO VANCOMYCIN RESISTANT ENTEROCOCCUS ... Complete 03/12/20 13:00 Nasal Nares MRSA Culture - Final Complete 03/12/20 10:40 Blood Blood Culture - Preliminary NO GROWTH AFTER 24 HOURS Resulted 03/12/20 10:25 Blood Blood Culture - Preliminary NO GROWTH AFTER 24 HOURS Resulted Laboratory Tests Test 03/13/20 21:02 03/14/20 06:09 03/14/20 06:30 03/14/20 09:20 POC Whole Blood Glucose Pending 145 MG/DL (74-106) H 267 MG/DL (74-106) H White Blood Count 5.3 K/UL (4.8-10.8) Red Blood Count 3.82 M/UL (4.20-5.40) L Hemoglobin 11.3 G/DL (12.0-16.0) L Hematocrit 32.5 % (37.0-47.0) L Mean Corpuscular Volume 85 FL (80-99) Mean Corpuscular Hemoglobin 29.5 PG (27.0-31.0) Mean Corpuscular Hemoglobin Concent 34.6 G/DL (32.0-36.0) Red Cell Distribution Width 15.9 % (11.6-14.8) H Platelet Count 202 K/UL (150-450) Mean Platelet Volume 7.3 FL (6.5-10.1) Neutrophils (%) (Auto) 60.7 % (45.0-75.0) Lymphocytes (%) (Auto) 24.2 % (20.0-45.0) Monocytes (%) (Auto) 14.1 % (1.0-10.0) H Eosinophils (%) (Auto) 0.3 % (0.0-3.0) Basophils (%) (Auto) 0.8 % (0.0-2.0) Erythrocyte Sedimentation Rate 74 MM/HR (0-30) H Sodium Level 136 MMOL/L (136-145) Potassium Level 3.7 MMOL/L (3.5-5.1) Chloride Level 100 MMOL/L (98-107) Carbon Dioxide Level 30 MMOL/L (21-32) Anion Gap 6 mmol/L (5-15) Blood Urea Nitrogen 20 mg/dL (7-18) H Creatinine 1.1 MG/DL (0.55-1.30) Estimat Glomerular Filtration Rate 49.3 mL/min (>60) Glucose Level 150 MG/DL (74-106) #H Calcium Level 7.9 MG/DL (8.5-10.1) L Total Bilirubin 0.3 MG/DL (0.2-1.0) Aspartate Amino Transf (AST/SGOT) 71 U/L (15-37) H Alanine Aminotransferase (ALT/SGPT) 58 U/L (12-78) Alkaline Phosphatase 69 U/L (46-116) C-Reactive Protein, Quantitative 0.6 mg/dL (0.00-0.90) Total Protein 6.9 G/DL (6.4-8.2) Albumin 2.8 G/DL (3.4-5.0) L Globulin 4.1 g/dL Albumin/Globulin Ratio 0.7 (1.0-2.7) L Amylase Level 94 U/L (25-115) Lipase 302 U/L (73-393) Hepatitis A IgM Antibody Pending Hepatitis B Surface Antigen Pending Hepatitis B Core IgM Antibody Pending Hepatitis C Antibody Pending Test 03/14/20 12:11 03/14/20 16:07 POC Whole Blood Glucose 243 MG/DL (74-106) H 250 MG/DL (74-106) H Current Medications Medications (Trade) Dose Ordered Sig/Tenzin Route PRN Reason Start Time Stop Time Status Last Admin Dose Admin Acetaminophen (Tylenol) 500 mg Q4H PRN ORAL Temp >100.5 03/14/20 16:15 04/13/20 16:14 Amlodipine Besylate (Norvasc) 5 mg DAILY ORAL 03/13/20 09:00 04/12/20 08:59 03/14/20 09:21 Azithromycin (Zithromax) 500 mg DAILY ORAL 03/13/20 16:30 03/20/20 16:29 03/14/20 09:21 Dextrose (Dextrose 50%) 25 ml Q30M PRN IV Hypoglycemia 03/12/20 16:45 06/10/20 16:44 Dextrose (Dextrose 50%) 50 ml Q30M PRN IV Hypoglycemia 03/12/20 16:45 06/10/20 16:44 Furosemide (Lasix) 40 mg DAILY ORAL 03/13/20 09:00 04/12/20 08:59 03/14/20 09:21 Ibuprofen (Advil) 400 mg Q6H PRN ORAL For Pain 03/12/20 16:45 04/11/20 16:44 03/13/20 06:12 Insulin Aspart (NovoLOG) BEFORE MEALS AND HS SUBQ 03/12/20 21:00 2/27/21 20:59 03/14/20 17:14 Insulin Aspart (NovoLOG) 8 units NOVOTIAC SUBQ 03/13/20 11:50 06/11/20 11:49 03/14/20 12:27 Insulin Detemir (Levemir) 24 units DAILY SUBQ 03/13/20 09:00 06/11/20 08:59 03/14/20 09:23 Ondansetron HCl (Zofran) 4 mg Q6H PRN IVP Nausea & Vomiting 03/12/20 16:45 04/11/20 16:44 Rogelio Martinez MD Mar 14, 2020 17:20
[2020-03-14] MEDS: Acetaminophen 500mg (ES) tab ORAL PRN (17:21)
[2020-03-14] MEDS: cefTRIAXone 1 GM in D5W 55 ML IVPB SCH (17:32)
[2020-03-14 20:00] VITALS: BP 116/71
--- NOTE | 2020-03-14 21:08 | General Progress Note ---
Subjective ROS Limited/Unobtainable: Yes Allergies: Coded Allergies: No Known Allergies (Unverified , 11/08/15) Objective Last 24 Hour Vital Signs Date Time Temp Pulse Resp B/P (MAP) Pulse Ox O2 Delivery O2 Flow Rate FiO2 03/14/20 20:00 98.1 83 20 116/71 (86) 94 03/14/20 17:51 98.4 03/14/20 17:51 98.4 03/14/20 17:21 100.7 03/14/20 16:00 100.0 99 20 140/78 (98) 97 03/14/20 12:00 99.1 97 20 136/85 (102) 98 03/14/20 09:21 98 136/70 03/14/20 09:00 Nasal Cannula 2.0 03/14/20 08:00 97.7 98 20 136/70 (92) 98 03/14/20 04:00 98.8 105 18 109/81 (90) 97 03/14/20 00:00 98.8 100 17 127/60 (82) 95 Intake and Output 03/13/20 03/14/20 19:00 07:00 Intake Total 480 ml 360 ml Output Total 400 ml Balance 480 ml -40 ml Intake Oral 480 ml Other 360 ml Output Urine Total 400 ml # Voids 2 Laboratory Tests 03/14/20 06:09: POC Whole Blood Glucose 145H 03/14/20 06:30: White Blood Count 5.3, Red Blood Count 3.82L, Hemoglobin 11.3L, Hematocrit 32.5L , Mean Corpuscular Volume 85, Mean Corpuscular Hemoglobin 29.5, Mean Corpuscular Hemoglobin Concent 34.6, Red Cell Distribution Width 15.9H, Platelet Count 202, Mean Platelet Volume 7.3, Neutrophils (%) (Auto) 60.7, Lymphocytes (%) (Auto) 24.2, Monocytes (%) (Auto) 14.1H, Eosinophils (%) (Auto) 0.3, Basophils (%) (Auto) 0.8, Erythrocyte Sedimentation Rate 74H, Sodium Level 136, Potassium Level 3.7, Chloride Level 100, Carbon Dioxide Level 30, Anion Gap 6, Blood Urea Nitrogen 20H, Creatinine 1.1, Estimat Glomerular Filtration Rate 49.3, Glucose Level 150#H, Calcium Level 7.9L, Total Bilirubin 0.3, Aspartate Amino Transf (AST/SGOT) 71H, Alanine Aminotransferase (ALT/SGPT) 58, Alkaline Phosphatase 69, C-Reactive Protein, Quantitative 0.6, Total Protein 6.9, Albumin 2.8L, Globulin 4.1, Albumin/Globulin Ratio 0.7L, Amylase Level 94, Lipase 302, Hepatitis A IgM Antibody [Pending], Hepatitis B Surface Antigen [Pending], Hepatitis B Core IgM Antibody [Pending], Hepatitis C Antibody [Pending] 03/14/20 09:20: POC Whole Blood Glucose 267H 03/14/20 12:11: POC Whole Blood Glucose 243H 03/14/20 16:07: POC Whole Blood Glucose 250H Height (Feet): 5 Height (Inches): 4.00 Weight (Pounds): 185 Assessment/Plan Problem List: (1) Pulmonary hypertension ICD Codes: I27.20 - Pulmonary hypertension, unspecified SNOMED: 67062800 (2) Cholelithiasis ICD Codes: K80.20 - Calculus of gallbladder without cholecystitis without obstruction SNOMED: 252964413 (3) Dehydration ICD Codes: E86.0 - Dehydration SNOMED: 38407774 (4) Fever ICD Codes: R50.9 - Fever, unspecified SNOMED: 512857943 (5) Abdominal pain ICD Codes: R10.9 - Unspecified abdominal pain SNOMED: 26993212 Qualifiers: Qualified Codes: R10.11 - Right upper quadrant pain (6) Severe sepsis ICD Codes: A41.9 - Sepsis, unspecified organism; R65.20 - Severe sepsis without septic shock SNOMED: 13825386 (7) MER (acute kidney injury) ICD Codes: N17.9 - Acute kidney failure, unspecified SNOMED: 3418970, 44549435 (8) Abnormal LFTs ICD Codes: R79.89 - Other specified abnormal findings of blood chemistry SNOMED: 367528227 (9) COPD exacerbation ICD Codes: J44.1 - Chronic obstructive pulmonary disease with (acute) exacerbation SNOMED: 853951364 (10) Anemia ICD Codes: D64.9 - Anemia, unspecified SNOMED: 111884625 (11) Type 2 diabetes mellitus ICD Codes: E11.9 - Type 2 diabetes mellitus without complications SNOMED: 19564374, 451000155 (12) Azotemia ICD Codes: R79.89 - Other specified abnormal findings of blood chemistry SNOMED: 128635872 Status: progressing Assessment/Plan: gallstone abdominal pain elevated sugar is improving afebrile vitals stable reviewed chart Amelie Rios MD Mar 14, 2020 21:08
--- NOTE | 2020-03-14 21:57 | General Progress Note ---
Subjective Allergies: Coded Allergies: No Known Allergies (Unverified , 11/08/15) Subjective Feels better today no abd pain labs noted Objective Last 24 Hour Vital Signs Date Time Temp Pulse Resp B/P (MAP) Pulse Ox O2 Delivery O2 Flow Rate FiO2 03/14/20 21:00 Nasal Cannula 2.0 03/14/20 20:00 98.1 83 20 116/71 (86) 94 03/14/20 17:51 98.4 03/14/20 17:51 98.4 03/14/20 17:21 100.7 03/14/20 16:00 100.0 99 20 140/78 (98) 97 03/14/20 12:00 99.1 97 20 136/85 (102) 98 03/14/20 09:21 98 136/70 03/14/20 09:00 Nasal Cannula 2.0 03/14/20 08:00 97.7 98 20 136/70 (92) 98 03/14/20 04:00 98.8 105 18 109/81 (90) 97 03/14/20 00:00 98.8 100 17 127/60 (82) 95 Intake and Output 03/13/20 03/14/20 19:00 07:00 Intake Total 480 ml 360 ml Output Total 400 ml Balance 480 ml -40 ml Intake Oral 480 ml Other 360 ml Output Urine Total 400 ml # Voids 2 Laboratory Tests 03/14/20 06:09: POC Whole Blood Glucose 145H 03/14/20 06:30: White Blood Count 5.3, Red Blood Count 3.82L, Hemoglobin 11.3L, Hematocrit 32.5L , Mean Corpuscular Volume 85, Mean Corpuscular Hemoglobin 29.5, Mean Corpuscular Hemoglobin Concent 34.6, Red Cell Distribution Width 15.9H, Platelet Count 202, Mean Platelet Volume 7.3, Neutrophils (%) (Auto) 60.7, Lymphocytes (%) (Auto) 24.2, Monocytes (%) (Auto) 14.1H, Eosinophils (%) (Auto) 0.3, Basophils (%) (Auto) 0.8, Erythrocyte Sedimentation Rate 74H, Sodium Level 136, Potassium Level 3.7, Chloride Level 100, Carbon Dioxide Level 30, Anion Gap 6, Blood Urea Nitrogen 20H, Creatinine 1.1, Estimat Glomerular Filtration Rate 49.3, Glucose Level 150#H, Calcium Level 7.9L, Total Bilirubin 0.3, Aspartate Amino Transf (AST/SGOT) 71H, Alanine Aminotransferase (ALT/SGPT) 58, Alkaline Phosphatase 69, C-Reactive Protein, Quantitative 0.6, Total Protein 6.9, Albumin 2.8L, Globulin 4.1, Albumin/Globulin Ratio 0.7L, Amylase Level 94, Lipase 302, Hepatitis A IgM Antibody [Pending], Hepatitis B Surface Antigen [Pending], Hepatitis B Core IgM Antibody [Pending], Hepatitis C Antibody [Pending] 03/14/20 09:20: POC Whole Blood Glucose 267H 03/14/20 12:11: POC Whole Blood Glucose 243H 03/14/20 16:07: POC Whole Blood Glucose 250H Height (Feet): 5 Height (Inches): 4.00 Weight (Pounds): 185 Objective WDWN NCAT supple Coarse BS RR abd soft ND NT no edema Assessment/Plan Status: progressing Assessment/Plan: Assessment - vague, mild abd pain - resolved - abnormal LFT, better today - cholelithiasis - DM - r/o COVID Recommendations - po as tolerated - imaging to follow - f/u hepatitis serologies Sangeeta Bianchi MD Mar 14, 2020 21:57
[2020-03-15] VITALS: BP 122/76
[2020-03-15 04:00] VITALS: BP 145/82
[2020-03-15] MEDS: NovoLOG Insulin Flexpen SUBQ SCH ×7 (05:42→21:00)
--- NOTE | 2020-03-15 06:37 | General Progress Note ---
Subjective Allergies: Coded Allergies: No Known Allergies (Unverified , 11/08/15) All Systems: reviewed and negative except above Subjective events noted glucose values improved Item Value Date Time Bedside Blood Glucose 167 mg/dl H 03/15/20 0542 Bedside Blood Glucose 144 mg/dl H 03/14/20 2105 Bedside Blood Glucose 250 mg/dl H 03/14/20 1714 Bedside Blood Glucose 243 mg/dl H 03/14/20 1227 Bedside Blood Glucose 267 mg/dl H 03/14/20 0923 Bedside Blood Glucose 145 mg/dl H 03/14/20 0642 Objective Last 24 Hour Vital Signs Date Time Temp Pulse Resp B/P (MAP) Pulse Ox O2 Delivery O2 Flow Rate FiO2 03/15/20 04:00 97.2 66 18 145/82 (103) 92 03/14/20 21:00 Nasal Cannula 2.0 03/14/20 20:00 98.1 83 20 116/71 (86) 94 03/14/20 17:51 98.4 03/14/20 17:51 98.4 03/14/20 17:21 100.7 03/14/20 16:00 100.0 99 20 140/78 (98) 97 03/14/20 12:00 99.1 97 20 136/85 (102) 98 03/14/20 09:21 98 136/70 03/14/20 09:00 Nasal Cannula 2.0 03/14/20 08:00 97.7 98 20 136/70 (92) 98 Intake and Output 03/14/20 03/15/20 19:00 07:00 Intake Total 455 ml Output Total 200 ml 400 ml Balance 255 ml -400 ml Intake Oral 400 ml IV Total 55 ml Output Urine Total 200 ml 400 ml # Bowel Movements 1 Laboratory Tests 03/14/20 09:20: POC Whole Blood Glucose 267H 03/14/20 12:11: POC Whole Blood Glucose 243H 03/14/20 16:07: POC Whole Blood Glucose 250H 03/15/20 05:40: POC Whole Blood Glucose [Pending] Height (Feet): 5 Height (Inches): 4.00 Weight (Pounds): 185 General Appearance: no apparent distress Neck: normal alignment Cardiovascular: normal rate Respiratory/Chest: decreased breath sounds Abdomen: normal bowel sounds Objective Current Medications Medications (Trade) Dose Ordered Sig/Tenzin Route PRN Reason Start Time Stop Time Status Last Admin Dose Admin Acetaminophen (Tylenol) 500 mg Q4H PRN ORAL Temp >100.5 03/14/20 16:15 04/13/20 16:14 03/14/20 17:21 Amlodipine Besylate (Norvasc) 5 mg DAILY ORAL 03/13/20 09:00 04/12/20 08:59 03/14/20 09:21 Azithromycin (Zithromax) 500 mg DAILY ORAL 03/13/20 16:30 03/20/20 16:29 03/14/20 09:21 Ceftriaxone Sodium 1 gm/ Dextrose 55 ml @ 110 mls/hr Q24H IVPB 03/14/20 18:00 03/21/20 17:59 03/14/20 17:32 Dextrose (Dextrose 50%) 25 ml Q30M PRN IV Hypoglycemia 03/12/20 16:45 06/10/20 16:44 Dextrose (Dextrose 50%) 50 ml Q30M PRN IV Hypoglycemia 03/12/20 16:45 06/10/20 16:44 Furosemide (Lasix) 40 mg DAILY ORAL 03/13/20 09:00 04/12/20 08:59 03/14/20 09:21 Ibuprofen (Advil) 400 mg Q6H PRN ORAL For Pain 03/12/20 16:45 04/11/20 16:44 03/13/20 06:12 Insulin Aspart (NovoLOG) BEFORE MEALS AND HS SUBQ 03/12/20 21:00 06/10/20 20:59 03/15/20 05:42 Insulin Aspart (NovoLOG) 8 units NOVOTIAC SUBQ 03/13/20 11:50 06/11/20 11:49 03/15/20 05:42 Insulin Detemir (Levemir) 24 units DAILY SUBQ 03/13/20 09:00 06/11/20 08:59 03/14/20 09:23 Ondansetron HCl (Zofran) 4 mg Q6H PRN IVP Nausea & Vomiting 03/12/20 16:45 04/11/20 16:44 Assessment/Plan Problem List: (1) Type 2 diabetes mellitus ICD Codes: E11.9 - Type 2 diabetes mellitus without complications SNOMED: 69471268, 936070403 (2) Hyperglycemia ICD Codes: R73.9 - Hyperglycemia, unspecified SNOMED: 50951949 (3) Renal insufficiency ICD Codes: N28.9 - Disorder of kidney and ureter, unspecified SNOMED: 385246144, 212882974 (4) Elevated lactic acid level ICD Codes: R79.89 - Other specified abnormal findings of blood chemistry SNOMED: 0096510 Status: progressing Assessment/Plan: continue Levemir 24 units daily continue Novolog 8 units ac tid + SSI hypoglycemia protocol in order Marcin uMnoz MD Mar 15, 2020 06:37
[2020-03-15 08:00] VITALS: BP 143/50
[2020-03-15] MEDS: Furosemide 40mg tab ORAL SCH (09:12)
[2020-03-15] MEDS: Azithromycin 250mg tab ORAL SCH (09:12)
[2020-03-15] MEDS: Levemir Flexpen SUBQ SCH (09:13)
--- NOTE | 2020-03-15 10:30 | Pulmonology Progress Note ---
Subjective ROS Limited/Unobtainable: Yes Interval Events: None new Constitutional: Reports: no symptoms, other - Pd=742.6 HEENT: Repors: no symptoms Respiratory: Reports: no symptoms Cardiovascular: Reports: no symptoms Gastrointestinal/Abdominal: Reports: no symptoms Genitourinary: Reports: no symptoms Neurologic: Reports: no symptoms Allergies: Coded Allergies: No Known Allergies (Unverified , 11/08/15) All Systems: reviewed and negative except above Objective Last 24 Hour Vital Signs Date Time Temp Pulse Resp B/P (MAP) Pulse Ox O2 Delivery O2 Flow Rate FiO2 03/15/20 09:11 95 143/50 03/15/20 09:00 Nasal Cannula 2.0 03/15/20 08:00 99.1 95 17 143/50 (81) 97 03/15/20 04:00 97.2 66 18 145/82 (103) 92 03/14/20 21:00 Nasal Cannula 2.0 03/14/20 20:00 98.1 83 20 116/71 (86) 94 03/14/20 17:51 98.4 03/14/20 17:51 98.4 03/14/20 17:21 100.7 03/14/20 16:00 100.0 99 20 140/78 (98) 97 03/14/20 12:00 99.1 97 20 136/85 (102) 98 Intake and Output 03/14/20 03/15/20 19:00 07:00 Intake Total 455 ml Output Total 200 ml 400 ml Balance 255 ml -400 ml Intake Oral 400 ml IV Total 55 ml Output Urine Total 200 ml 400 ml # Bowel Movements 1 General Appearance: no acute distress HEENT: normocephalic Respiratory: chest wall non-tender Cardiovascular: normal peripheral pulses, normal rate Abdomen: normal bowel sounds Microbiology Date/Time Source Procedure Growth Status 03/12/20 13:00 Rectum - Final NO CARBAPENEM-RESISTANT ENTEROBACTERI... Complete 03/12/20 13:00 Rectum VRE Culture - Final NO VANCOMYCIN RESISTANT ENTEROCOCCUS ... Complete 03/12/20 13:00 Nasal Nares MRSA Culture - Final Complete 03/12/20 13:00 Nasopharynx Coronavirus COVID-19 PCR ([facility]) - Final Complete 03/12/20 10:40 Blood Blood Culture - Preliminary NO GROWTH AFTER 48 HOURS Resulted Laboratory Tests 03/14/20 12:11: POC Whole Blood Glucose 243H 03/14/20 16:07: POC Whole Blood Glucose 250H 03/15/20 05:40: POC Whole Blood Glucose [Pending] Current Medications Medications (Trade) Dose Ordered Sig/Tenzin Route PRN Reason Start Time Stop Time Status Last Admin Dose Admin Acetaminophen (Tylenol) 500 mg Q4H PRN ORAL Temp >100.5 03/14/20 16:15 04/13/20 16:14 03/14/20 17:21 Amlodipine Besylate (Norvasc) 5 mg DAILY ORAL 03/13/20 09:00 04/12/20 08:59 03/15/20 09:11 Azithromycin (Zithromax) 500 mg DAILY ORAL 03/13/20 16:30 03/20/20 16:29 03/15/20 09:12 Ceftriaxone Sodium 1 gm/ Dextrose 55 ml @ 110 mls/hr Q24H IVPB 03/14/20 18:00 03/21/20 17:59 03/14/20 17:32 Dextrose (Dextrose 50%) 25 ml Q30M PRN IV Hypoglycemia 03/12/20 16:45 06/10/20 16:44 Dextrose (Dextrose 50%) 50 ml Q30M PRN IV Hypoglycemia 03/12/20 16:45 06/10/20 16:44 Furosemide (Lasix) 40 mg DAILY ORAL 03/13/20 09:00 04/12/20 08:59 03/15/20 09:12 Ibuprofen (Advil) 400 mg Q6H PRN ORAL For Pain 03/12/20 16:45 04/11/20 16:44 03/13/20 06:12 Insulin Aspart (NovoLOG) BEFORE MEALS AND HS SUBQ 03/12/20 21:00 06/10/20 20:59 03/15/20 05:42 Insulin Aspart (NovoLOG) 8 units NOVOTIAC SUBQ 03/13/20 11:50 06/11/20 11:49 03/15/20 05:42 Insulin Detemir (Levemir) 24 units DAILY SUBQ 03/13/20 09:00 06/11/20 08:59 03/15/20 09:13 Ondansetron HCl (Zofran) 4 mg Q6H PRN IVP Nausea & Vomiting 03/12/20 16:45 04/11/20 16:44 Assessment/Plan Assessment/Plan IMPRESSION: 1. Anosmia and dysgeusia, concern high for COVID-19 pneumonia. 2. Normoxemia 3. Parkinson's. 4. Confirmed COVID 19 pneumonia DISCUSSION: A I will continue to follow No current need fopr steroids or Remdesivir Continue abx per ID Valery Lee Omar Syed MD Mar 15, 2020 10:30
[2020-03-15 12:00] VITALS: BP 139/73
--- NOTE | 2020-03-15 12:52 | Infectious Diseases Prog Note ---
Assessment/Plan Assessment/Plan IMPRESSION: COVID19 disease, O2sat =93% in room air COPD, may have mild exacerbation. MRSA carrier Diabetes mellitus with hyperglycemia, Pulmonary hypertension, Diastolic CHF, Parkinson disease, Elevated transaminase, anemia. RECOMMENDATION: Continue Zithromax add Rocephin. Will f/u CXR Subjective ROS Limited/Unobtainable: Yes Constitutional: Reports: other - dosen't feel good; Denies: fever Respiratory: Reports: shortness of breath Allergies: Coded Allergies: No Known Allergies (Unverified , 11/08/15) Objective Last 24 Hour Vital Signs Date Time Temp Pulse Resp B/P (MAP) Pulse Ox O2 Delivery O2 Flow Rate FiO2 03/15/20 12:00 98.6 86 19 139/73 (95) 97 03/15/20 09:11 95 143/50 03/15/20 09:00 Nasal Cannula 2.0 03/15/20 08:00 99.1 95 17 143/50 (81) 97 03/15/20 04:00 97.2 66 18 145/82 (103) 92 03/14/20 21:00 Nasal Cannula 2.0 03/14/20 20:00 98.1 83 20 116/71 (86) 94 03/14/20 17:51 98.4 03/14/20 17:51 98.4 03/14/20 17:21 100.7 03/14/20 16:00 100.0 99 20 140/78 (98) 97 Height (Feet): 5 Height (Inches): 4.00 Weight (Pounds): 185 General Appearance: no acute distress HEENT: mucous membranes moist Respiratory/Chest: lungs clear, other - oxygen by nasal cannula Cardiovascular: normal rate Abdomen: soft, non tender Extremities: no edema Neurologic/Psychiatric: alert, responsive, other - tremor Microbiology Date/Time Source Procedure Growth Status 03/12/20 13:00 Rectum - Final NO CARBAPENEM-RESISTANT ENTEROBACTERI... Complete 03/12/20 13:00 Rectum VRE Culture - Final NO VANCOMYCIN RESISTANT ENTEROCOCCUS ... Complete 03/12/20 13:00 Nasal Nares MRSA Culture - Final Complete 03/12/20 13:00 Nasopharynx Coronavirus COVID-19 PCR ([facility]) - Final Complete Laboratory Tests Test 03/14/20 16:07 03/15/20 05:40 POC Whole Blood Glucose 250 MG/DL (74-106) H Pending Current Medications Medications (Trade) Dose Ordered Sig/Tenzin Route PRN Reason Start Time Stop Time Status Last Admin Dose Admin Acetaminophen (Tylenol) 500 mg Q4H PRN ORAL Temp >100.5 03/14/20 16:15 04/13/20 16:14 03/14/20 17:21 Amlodipine Besylate (Norvasc) 5 mg DAILY ORAL 03/13/20 09:00 04/12/20 08:59 03/15/20 09:11 Azithromycin (Zithromax) 500 mg DAILY ORAL 03/13/20 16:30 03/20/20 16:29 03/15/20 09:12 Ceftriaxone Sodium 1 gm/ Dextrose 55 ml @ 110 mls/hr Q24H IVPB 03/14/20 18:00 03/21/20 17:59 03/14/20 17:32 Dextrose (Dextrose 50%) 25 ml Q30M PRN IV Hypoglycemia 03/12/20 16:45 06/10/20 16:44 Dextrose (Dextrose 50%) 50 ml Q30M PRN IV Hypoglycemia 03/12/20 16:45 06/10/20 16:44 Furosemide (Lasix) 40 mg DAILY ORAL 03/13/20 09:00 04/12/20 08:59 03/15/20 09:12 Ibuprofen (Advil) 400 mg Q6H PRN ORAL For Pain 03/12/20 16:45 04/11/20 16:44 03/13/20 06:12 Insulin Aspart (NovoLOG) BEFORE MEALS AND HS SUBQ 03/12/20 21:00 06/10/20 20:59 03/15/20 05:42 Insulin Aspart (NovoLOG) 8 units NOVOTIAC SUBQ 03/13/20 11:50 06/11/20 11:49 03/15/20 11:54 Insulin Detemir (Levemir) 24 units DAILY SUBQ 03/13/20 09:00 06/11/20 08:59 03/15/20 09:13 Ondansetron HCl (Zofran) 4 mg Q6H PRN IVP Nausea & Vomiting 03/12/20 16:45 04/11/20 16:44 Rogelio Martinez MD Mar 15, 2020 12:52
--- NOTE | 2020-03-15 15:22 | Cardiac Electrophysiology PN ---
Assessment/Plan Assessment/Plan 1. Shortness of breath due to COVID, the patient has loss of sense of smell and taste and diarrhea . Echo EF 65% and ruled out for NM . 2. History of hypertension. On Lasix 40 and Norvasc 5 daily 3. Uncontrolled diabetes, on metformin and insulin for further evaluation by Dr. Munoz. 4. History of contracted gallbladder, which is packed with stones by abdominal ultrasound. 5. History of COPD and pulmonary hypertension. 6. Hyperlipidemia. Subjective Subjective Covid is positive now in isolation . No new events Objective Last 24 Hour Vital Signs Date Time Temp Pulse Resp B/P (MAP) Pulse Ox O2 Delivery O2 Flow Rate FiO2 03/15/20 12:00 98.6 86 19 139/73 (95) 97 03/15/20 09:11 95 143/50 03/15/20 09:00 Nasal Cannula 2.0 03/15/20 08:00 99.1 95 17 143/50 (81) 97 03/15/20 04:00 97.2 66 18 145/82 (103) 92 03/14/20 21:00 Nasal Cannula 2.0 03/14/20 20:00 98.1 83 20 116/71 (86) 94 03/14/20 17:51 98.4 03/14/20 17:51 98.4 03/14/20 17:21 100.7 03/14/20 16:00 100.0 99 20 140/78 (98) 97 Intake and Output 03/14/20 03/15/20 19:00 07:00 Intake Total 455 ml Output Total 200 ml 400 ml Balance 255 ml -400 ml Intake Oral 400 ml IV Total 55 ml Output Urine Total 200 ml 400 ml # Bowel Movements 1 Laboratory Tests Test 03/14/20 16:07 03/15/20 05:40 POC Whole Blood Glucose 250 MG/DL (74-106) H Pending Objective HEAD AND NECK: No JVD. LUNGS: Coarse rhonchi. CARDIOVASCULAR: Regular S1 and S2 with no gallop or murmur. ABDOMEN: Soft. EXTREMITIES: No pitting edema. Noe Galdamez MD Mar 15, 2020 15:22
--- NOTE | 2020-03-15 15:36 | Diagnostic Imaging Report ---
Indication: Shortness of breath Technique: One view of the chest Comparison: 09/24/2019 Findings: Lungs and pleural spaces are clear. Heart size is normal. Tortuous calcified aorta. No significant change Impression: No acute process
[2020-03-15 16:00] VITALS: BP 143/82
[2020-03-15] MEDS: cefTRIAXone 1 GM in D5W 55 ML IVPB SCH (17:16)
--- NOTE | 2020-03-15 19:14 | Surgery Progress Note ---
Surgery Progress Note Subjective Symptoms: improved, tolerating diet, voiding well, passing flatus, pain decreased Objective Last 24 Hour Vital Signs Date Time Temp Pulse Resp B/P (MAP) Pulse Ox O2 Delivery O2 Flow Rate FiO2 03/15/20 16:00 97.2 89 20 143/82 (102) 97 03/15/20 12:00 98.6 86 19 139/73 (95) 97 03/15/20 09:11 95 143/50 03/15/20 09:00 Nasal Cannula 2.0 03/15/20 08:00 99.1 95 17 143/50 (81) 97 03/15/20 04:00 97.2 66 18 145/82 (103) 92 03/14/20 21:00 Nasal Cannula 2.0 03/14/20 20:00 98.1 83 20 116/71 (86) 94 I&O Intake and Output 03/14/20 03/15/20 19:00 07:00 Intake Total 455 ml Output Total 200 ml 400 ml Balance 255 ml -400 ml Intake Oral 400 ml IV Total 55 ml Output Urine Total 200 ml 400 ml # Bowel Movements 1 Cardiovascular: RSR Respiratory: clear Abdomen: soft, flat, non-tender, present bowel sounds Extremities: no edema, no tenderness, no cyanosis Laboratory Tests Test 03/15/20 05:40 POC Whole Blood Glucose Pending Plan Problems: (1) Fever (2) Hypoalbuminemia (3) Abnormal LFTs (4) Elevated CEA (5) Vaginal discharge (6) Vomiting and diarrhea (7) COPD exacerbation (8) Dehydration (9) Constipation (10) Cholelithiasis (11) Severe sepsis (12) Altered level of consciousness (13) MER (acute kidney injury) (14) Pulmonary hypertension (15) Renal insufficiency (16) Hyperglycemia (17) Gall stones (18) Nausea & vomiting (19) Elevated lactic acid level (20) Abdominal pain Assessment & Plan: 69F with acute abdominal pain. likely biliary colic? resolved now does not seem likely cholecystitis as resolved quickly US noted. lft's mild elevated improving lip wnl pain resolving no n/v US noted lab snoted okay for diet cont iv fluids cont abx will follow with serial exams Liver: Liver measures 14.4 cm. No intrahepatic bile duct dilation. Gallbladder: Stones and sludge in the gallbladder. Nonspecific mild prominence of the gallbladder wall which appears to contain calcifications. No significant pericholecystic fluid. Negative sonographic Vargas's sign. Common bile duct: Normal common bile duct measuring 3.3 mm. No stones. No dilation. Pancreas: Pancreas is not well-visualized due to overlying bowel gas. Kidneys: Right kidney measures 8.8 cm in length. No hydronephrosis or stone. Left kidney measures 9.6 cm in length. No hydronephrosis. Nonobstructing left renal stones measuring up to 10 mm. Spleen: Spleen measures 8.8 cm. No focal lesion. Aorta: Unremarkable. No aneurysm. Inferior vena cava: Unremarkable. Free fluid: No ascites. IMPRESSION: 1. Stones and sludge in the gallbladder. Nonspecific mild prominence of the gallbladder wall which appears to contain calcifications. No significant pericholecystic fluid. Negative sonographic Vargas's sign. 2. Left renal stones. (21) UTI (urinary tract infection) (22) Encephalopathy (23) Anemia (24) Hyperlipidemia associated with type 2 diabetes mellitus (25) Type 2 diabetes mellitus (26) Azotemia Oliver Last Mar 15, 2020 19:13
[2020-03-15 20:00] VITALS: BP 123/73
[2020-03-15] MEDS ORDERED: NS 275ml ONE (21:04)
[2020-03-15] MEDS ORDERED: Tubing IV Secondary IV ONE (21:04)
--- NOTE | 2020-03-15 21:22 | General Progress Note ---
Subjective ROS Limited/Unobtainable: Yes Allergies: Coded Allergies: No Known Allergies (Unverified , 11/08/15) Objective Last 24 Hour Vital Signs Date Time Temp Pulse Resp B/P (MAP) Pulse Ox O2 Delivery O2 Flow Rate FiO2 03/15/20 16:00 97.2 89 20 143/82 (102) 97 03/15/20 12:00 98.6 86 19 139/73 (95) 97 03/15/20 09:11 95 143/50 03/15/20 09:00 Nasal Cannula 2.0 03/15/20 08:00 99.1 95 17 143/50 (81) 97 03/15/20 04:00 97.2 66 18 145/82 (103) 92 Intake and Output 03/14/20 03/15/20 19:00 07:00 Intake Total 455 ml Output Total 200 ml 400 ml Balance 255 ml -400 ml Intake Oral 400 ml IV Total 55 ml Output Urine Total 200 ml 400 ml # Bowel Movements 1 Laboratory Tests 03/15/20 05:40: POC Whole Blood Glucose [Pending] 03/15/20 20:39: POC Whole Blood Glucose 88 Height (Feet): 5 Height (Inches): 4.00 Weight (Pounds): 185 Assessment/Plan Problem List: (1) Pulmonary hypertension ICD Codes: I27.20 - Pulmonary hypertension, unspecified SNOMED: 91345947 (2) Cholelithiasis ICD Codes: K80.20 - Calculus of gallbladder without cholecystitis without obstruction SNOMED: 237354618 (3) Dehydration ICD Codes: E86.0 - Dehydration SNOMED: 52488623 (4) Fever ICD Codes: R50.9 - Fever, unspecified SNOMED: 467215187 (5) Abdominal pain ICD Codes: R10.9 - Unspecified abdominal pain SNOMED: 00974065 Qualifiers: Qualified Codes: R10.11 - Right upper quadrant pain (6) Severe sepsis ICD Codes: A41.9 - Sepsis, unspecified organism; R65.20 - Severe sepsis without septic shock SNOMED: 64057767 (7) MER (acute kidney injury) ICD Codes: N17.9 - Acute kidney failure, unspecified SNOMED: 1088788, 10881414 (8) Abnormal LFTs ICD Codes: R79.89 - Other specified abnormal findings of blood chemistry SNOMED: 156808037 (9) COPD exacerbation ICD Codes: J44.1 - Chronic obstructive pulmonary disease with (acute) exacerbation SNOMED: 801744430 (10) Anemia ICD Codes: D64.9 - Anemia, unspecified SNOMED: 899286049 (11) Type 2 diabetes mellitus ICD Codes: E11.9 - Type 2 diabetes mellitus without complications SNOMED: 52112156, 101265987 (12) Azotemia ICD Codes: R79.89 - Other specified abnormal findings of blood chemistry SNOMED: 875369066 Status: progressing Assessment/Plan: gallstone no acute events covid positive resp insuff abx per id abdominal pain elevated sugar Amelie Rios MD Mar 15, 2020 21:22
--- NOTE | 2020-03-15 21:44 | General Progress Note ---
Subjective Allergies: Coded Allergies: No Known Allergies (Unverified , 11/08/15) Subjective c/o mild abd pain Objective Last 24 Hour Vital Signs Date Time Temp Pulse Resp B/P (MAP) Pulse Ox O2 Delivery O2 Flow Rate FiO2 03/15/20 16:00 97.2 89 20 143/82 (102) 97 03/15/20 12:00 98.6 86 19 139/73 (95) 97 03/15/20 09:11 95 143/50 03/15/20 09:00 Nasal Cannula 2.0 03/15/20 08:00 99.1 95 17 143/50 (81) 97 03/15/20 04:00 97.2 66 18 145/82 (103) 92 Intake and Output 03/14/20 03/15/20 19:00 07:00 Intake Total 455 ml Output Total 200 ml 400 ml Balance 255 ml -400 ml Intake Oral 400 ml IV Total 55 ml Output Urine Total 200 ml 400 ml # Bowel Movements 1 Laboratory Tests 03/15/20 05:40: POC Whole Blood Glucose [Pending] 03/15/20 20:39: POC Whole Blood Glucose 88 Height (Feet): 5 Height (Inches): 4.00 Weight (Pounds): 185 Objective WDWN NCAT supple Coarse BS RR abd soft ND NT no edema Assessment/Plan Status: progressing Assessment/Plan: Assessment - vague, mild abd pain - improved - abnormal LFT, better - cholelithiasis - DM - r/o COVID Recommendations - po as tolerated - imaging to follow - f/u hepatitis serologies Sangeeta Bianchi MD Mar 15, 2020 21:44
[2020-03-16] VITALS: BP 137/82
[2020-03-16 04:00] VITALS: BP 106/64
[2020-03-16] MEDS: Acetaminophen 500mg (ES) tab ORAL PRN (05:11)
[2020-03-16] MEDS: NovoLOG Insulin Flexpen SUBQ SCH ×7 (06:22→20:56)
--- NOTE | 2020-03-16 06:49 | General Progress Note ---
Subjective Allergies: Coded Allergies: No Known Allergies (Unverified , 11/08/15) All Systems: reviewed and negative except above Subjective events noted glucose values are controlled Item Value Date Time Bedside Blood Glucose 185 mg/dl H 03/16/20 0623 Bedside Blood Glucose 88 mg/dl 03/15/20 2100 Bedside Blood Glucose 179 mg/dl H 03/15/20 1727 Bedside Blood Glucose 110 mg/dl 03/15/20 1154 Bedside Blood Glucose 167 mg/dl H 03/15/20 0913 Objective Last 24 Hour Vital Signs Date Time Temp Pulse Resp B/P (MAP) Pulse Ox O2 Delivery O2 Flow Rate FiO2 03/16/20 05:41 99.3 03/16/20 04:00 100.7 85 19 106/64 (78) 93 03/16/20 00:00 99.9 59 17 137/82 (100) 96 03/15/20 21:00 Nasal Cannula 3.0 03/15/20 20:00 99.0 101 22 123/73 (90) 97 03/15/20 16:00 97.2 89 20 143/82 (102) 97 03/15/20 12:00 98.6 86 19 139/73 (95) 97 03/15/20 09:11 95 143/50 03/15/20 09:00 Nasal Cannula 2.0 03/15/20 08:00 99.1 95 17 143/50 (81) 97 Intake and Output 03/15/20 03/16/20 19:00 07:00 Intake Total 590 ml Balance 590 ml Intake Oral 480 ml IV Total 110 ml # Voids 2 2 # Bowel Movements 2 Laboratory Tests 03/15/20 20:39: POC Whole Blood Glucose 88 03/16/20 06:13: POC Whole Blood Glucose 185H Height (Feet): 5 Height (Inches): 4.00 Weight (Pounds): 185 General Appearance: no apparent distress Neck: normal alignment Cardiovascular: normal rate Respiratory/Chest: lungs clear Abdomen: normal bowel sounds Objective Current Medications Medications (Trade) Dose Ordered Sig/Tenzin Route PRN Reason Start Time Stop Time Status Last Admin Dose Admin Acetaminophen (Tylenol) 500 mg Q4H PRN ORAL Temp >100.5 03/14/20 16:15 04/13/20 16:14 03/16/20 05:11 Amlodipine Besylate (Norvasc) 5 mg DAILY ORAL 11/30/20 09:00 04/12/20 08:59 03/15/20 09:11 Azithromycin (Zithromax) 500 mg DAILY ORAL 03/13/20 16:30 03/20/20 16:29 03/15/20 09:12 Ceftriaxone Sodium 1 gm/ Dextrose 55 ml @ 110 mls/hr Q24H IVPB 03/14/20 18:00 03/21/20 17:59 03/15/20 17:16 Dextrose (Dextrose 50%) 25 ml Q30M PRN IV Hypoglycemia 03/12/20 16:45 06/10/20 16:44 Dextrose (Dextrose 50%) 50 ml Q30M PRN IV Hypoglycemia 03/12/20 16:45 06/10/20 16:44 Furosemide (Lasix) 40 mg DAILY ORAL 03/13/20 09:00 04/12/20 08:59 03/15/20 09:12 Ibuprofen (Advil) 400 mg Q6H PRN ORAL For Pain 03/12/20 16:45 04/11/20 16:44 03/13/20 06:12 Insulin Aspart (NovoLOG) BEFORE MEALS AND HS SUBQ 03/12/20 21:00 06/10/20 20:59 03/16/20 06:22 Insulin Aspart (NovoLOG) 8 units NOVOTIAC SUBQ 03/13/20 11:50 06/11/20 11:49 03/16/20 06:23 Insulin Detemir (Levemir) 24 units DAILY SUBQ 03/13/20 09:00 06/11/20 08:59 03/15/20 09:13 Ondansetron HCl (Zofran) 4 mg Q6H PRN IVP Nausea & Vomiting 03/12/20 16:45 04/11/20 16:44 Assessment/Plan Problem List: (1) Type 2 diabetes mellitus ICD Codes: E11.9 - Type 2 diabetes mellitus without complications SNOMED: 11079920, 447972027 (2) Hyperglycemia ICD Codes: R73.9 - Hyperglycemia, unspecified SNOMED: 30651285 (3) Renal insufficiency ICD Codes: N28.9 - Disorder of kidney and ureter, unspecified SNOMED: 210446189, 800776174 (4) Elevated lactic acid level ICD Codes: R79.89 - Other specified abnormal findings of blood chemistry SNOMED: 0399469 Status: progressing Assessment/Plan: continue Levemir 24 units daily continue Novolog 8 units ac tid + SSI hypoglycemia protocol in order Marcin Munoz MD Mar 16, 2020 06:49
[2020-03-16 08:00] VITALS: BP 136/91
[2020-03-16] MEDS: Azithromycin 250mg tab ORAL SCH (08:33)
[2020-03-16] MEDS: Furosemide 40mg tab ORAL SCH (08:33)
[2020-03-16] MEDS: Levemir Flexpen SUBQ SCH (08:53)
--- NOTE | 2020-03-16 09:25 | Pulmonology Progress Note ---
Subjective ROS Limited/Unobtainable: No Interval Events: fever overnight, controlled with acetaminophen Constitutional: Reports: other - dosen't feel good; Denies: fever HEENT: Repors: no symptoms Respiratory: Reports: no symptoms, other - mild intermittent cough Cardiovascular: Reports: no symptoms Gastrointestinal/Abdominal: Reports: no symptoms Genitourinary: Reports: no symptoms Neurologic: Reports: no symptoms Allergies: Coded Allergies: No Known Allergies (Unverified , 11/08/15) All Systems: reviewed and negative except above Objective Last 24 Hour Vital Signs Date Time Temp Pulse Resp B/P (MAP) Pulse Ox O2 Delivery O2 Flow Rate FiO2 03/16/20 08:33 82 136/91 03/16/20 08:00 98.1 82 20 136/91 (106) 96 03/16/20 05:41 99.3 03/16/20 04:00 100.7 85 19 106/64 (78) 93 03/16/20 00:00 99.9 59 17 137/82 (100) 96 03/15/20 21:00 Nasal Cannula 3.0 03/15/20 20:00 99.0 101 22 123/73 (90) 97 03/15/20 16:00 97.2 89 20 143/82 (102) 97 03/15/20 12:00 98.6 86 19 139/73 (95) 97 Intake and Output 03/15/20 03/16/20 19:00 07:00 Intake Total 590 ml 360 ml Output Total 300 ml Balance 590 ml 60 ml Intake Oral 480 ml IV Total 110 ml Other 360 ml Output Urine Total 300 ml # Voids 2 2 # Bowel Movements 2 Objective 03/16/2020 alert, laying in bed; saturating 93% on 3.5 lpm NC General Appearance: no acute distress HEENT: normocephalic Respiratory: chest wall non-tender Cardiovascular: normal peripheral pulses, normal rate, other - murmur appreciated Abdomen: normal bowel sounds Laboratory Tests 03/15/20 20:39: POC Whole Blood Glucose 88 03/16/20 06:13: POC Whole Blood Glucose 185H 03/16/20 08:41: POC Whole Blood Glucose 107H Current Medications Medications (Trade) Dose Ordered Sig/Tenzin Route PRN Reason Start Time Stop Time Status Last Admin Dose Admin Acetaminophen (Tylenol) 500 mg Q4H PRN ORAL Temp >100.5 03/14/20 16:15 04/13/20 16:14 03/16/20 05:11 Amlodipine Besylate (Norvasc) 5 mg DAILY ORAL 03/13/20 09:00 04/12/20 08:59 03/16/20 08:33 Azithromycin (Zithromax) 500 mg DAILY ORAL 03/13/20 16:30 03/20/20 16:29 03/16/20 08:33 Ceftriaxone Sodium 1 gm/ Dextrose 55 ml @ 110 mls/hr Q24H IVPB 03/14/20 18:00 03/21/20 17:59 03/15/20 17:16 Dextrose (Dextrose 50%) 25 ml Q30M PRN IV Hypoglycemia 03/12/20 16:45 06/10/20 16:44 Dextrose (Dextrose 50%) 50 ml Q30M PRN IV Hypoglycemia 03/12/20 16:45 06/10/20 16:44 Furosemide (Lasix) 40 mg DAILY ORAL 03/13/20 09:00 04/12/20 08:59 03/16/20 08:33 Ibuprofen (Advil) 400 mg Q6H PRN ORAL For Pain 03/12/20 16:45 04/11/20 16:44 03/13/20 06:12 Insulin Aspart (NovoLOG) BEFORE MEALS AND HS SUBQ 03/12/20 21:00 06/10/20 20:59 03/16/20 06:22 Insulin Aspart (NovoLOG) 8 units NOVOTIAC SUBQ 03/13/20 11:50 06/11/20 11:49 03/16/20 06:23 Insulin Detemir (Levemir) 24 units DAILY SUBQ 03/13/20 09:00 06/11/20 08:59 03/16/20 08:53 Ondansetron HCl (Zofran) 4 mg Q6H PRN IVP Nausea & Vomiting 03/12/20 16:45 04/11/20 16:44 Assessment/Plan Assessment/Plan 1. Anosmia and dysgeusia, - Serology confirmed COVID-19 - Saturating 93% on 3.5 lpm NC - No current need fop steroids or Remdesivir 2. Parkinson's. 3. Confirmed COVID 19 pneumonia - Cont Abx per ID The care for this patient was discussed with my supervising physician Seen and examined by Dr. Byrne as well Time spent for this case was approximately 31 minutes Tony Weathers Mar 16, 2020 09:25 Cezar Byrne MD Mar 16, 2020 10:32
[2020-03-16 12:00] VITALS: BP 120/78
--- NOTE | 2020-03-16 13:02 | Infectious Diseases Prog Note ---
Assessment/Plan Assessment/Plan IMPRESSION: COVID19 disease, COPD, may have mild exacerbation. MRSA carrier Diabetes mellitus with hyperglycemia, Pulmonary hypertension, Diastolic CHF, Parkinson disease, Elevated transaminase, anemia. RECOMMENDATION: Continue Zithromax & Rocephin. Add Dexamethasone Subjective ROS Limited/Unobtainable: Yes Constitutional: Reports: fever, other - Tb=773.7 Respiratory: Reports: productive cough; Denies: shortness of breath Allergies: Coded Allergies: No Known Allergies (Unverified , 11/08/15) Objective Last 24 Hour Vital Signs Date Time Temp Pulse Resp B/P (MAP) Pulse Ox O2 Delivery O2 Flow Rate FiO2 03/16/20 09:00 Nasal Cannula 3.0 03/16/20 08:33 82 136/91 03/16/20 08:00 98.1 82 20 136/91 (106) 96 03/16/20 05:41 99.3 03/16/20 04:00 100.7 85 19 106/64 (78) 93 03/16/20 00:00 99.9 59 17 137/82 (100) 96 03/15/20 21:00 Nasal Cannula 3.0 03/15/20 20:00 99.0 101 22 123/73 (90) 97 03/15/20 16:00 97.2 89 20 143/82 (102) 97 Height (Feet): 5 Height (Inches): 4.00 Weight (Pounds): 185 General Appearance: no acute distress HEENT: mucous membranes moist Respiratory/Chest: lungs clear, other - oxygen by nasal cannula Cardiovascular: normal rate Abdomen: soft, non tender Extremities: no edema Neurologic/Psychiatric: alert, responsive Laboratory Tests Test 03/15/20 20:39 03/16/20 06:13 03/16/20 08:41 03/16/20 11:07 POC Whole Blood Glucose 88 MG/DL (74-106) 185 MG/DL (74-106) H 107 MG/DL (74-106) H 132 MG/DL (74-106) H Current Medications Medications (Trade) Dose Ordered Sig/Tenzin Route PRN Reason Start Time Stop Time Status Last Admin Dose Admin Acetaminophen (Tylenol) 500 mg Q4H PRN ORAL Temp >100.5 03/14/20 16:15 04/13/20 16:14 03/16/20 05:11 Amlodipine Besylate (Norvasc) 5 mg DAILY ORAL 03/13/20 09:00 04/12/20 08:59 03/16/20 08:33 Azithromycin (Zithromax) 500 mg DAILY ORAL 03/13/20 16:30 03/20/20 16:29 03/16/20 08:33 Ceftriaxone Sodium 1 gm/ Dextrose 55 ml @ 110 mls/hr Q24H IVPB 03/14/20 18:00 03/21/20 17:59 03/15/20 17:16 Dextrose (Dextrose 50%) 25 ml Q30M PRN IV Hypoglycemia 03/12/20 16:45 06/10/20 16:44 Dextrose (Dextrose 50%) 50 ml Q30M PRN IV Hypoglycemia 03/12/20 16:45 06/10/20 16:44 Furosemide (Lasix) 40 mg DAILY ORAL 03/13/20 09:00 04/12/20 08:59 03/16/20 08:33 Ibuprofen (Advil) 400 mg Q6H PRN ORAL For Pain 03/12/20 16:45 04/11/20 16:44 03/13/20 06:12 Insulin Aspart (NovoLOG) BEFORE MEALS AND HS SUBQ 03/12/20 21:00 06/10/20 20:59 03/16/20 06:22 Insulin Aspart (NovoLOG) 8 units NOVOTIAC SUBQ 03/13/20 11:50 06/11/20 11:49 03/16/20 11:22 Insulin Detemir (Levemir) 24 units DAILY SUBQ 03/13/20 09:00 06/11/20 08:59 03/16/20 08:53 Ondansetron HCl (Zofran) 4 mg Q6H PRN IVP Nausea & Vomiting 03/12/20 16:45 04/11/20 16:44 Rogelio Martinez MD Mar 16, 2020 13:02
--- NOTE | 2020-03-16 13:03 | Surgery Progress Note ---
Surgery Progress Note Subjective Symptoms: improved, tolerating diet, passing flatus, BM Objective Last 24 Hour Vital Signs Date Time Temp Pulse Resp B/P (MAP) Pulse Ox O2 Delivery O2 Flow Rate FiO2 03/16/20 09:00 Nasal Cannula 3.0 03/16/20 08:33 82 136/91 03/16/20 08:00 98.1 82 20 136/91 (106) 96 03/16/20 05:41 99.3 03/16/20 04:00 100.7 85 19 106/64 (78) 93 03/16/20 00:00 99.9 59 17 137/82 (100) 96 03/15/20 21:00 Nasal Cannula 3.0 03/15/20 20:00 99.0 101 22 123/73 (90) 97 03/15/20 16:00 97.2 89 20 143/82 (102) 97 I&O Intake and Output 03/15/20 03/16/20 19:00 07:00 Intake Total 590 ml 360 ml Output Total 300 ml Balance 590 ml 60 ml Intake Oral 480 ml IV Total 110 ml Other 360 ml Output Urine Total 300 ml # Voids 2 2 # Bowel Movements 2 Cardiovascular: RSR Respiratory: clear Abdomen: soft, non-tender, present bowel sounds Extremities: no edema, no tenderness, no cyanosis Laboratory Tests Test 03/15/20 20:39 03/16/20 06:13 03/16/20 08:41 03/16/20 11:07 POC Whole Blood Glucose 88 MG/DL (74-106) 185 MG/DL (74-106) H 107 MG/DL (74-106) H 132 MG/DL (74-106) H Plan Problems: (1) Fever (2) Hypoalbuminemia (3) Abnormal LFTs (4) Elevated CEA (5) Vaginal discharge (6) Vomiting and diarrhea (7) COPD exacerbation (8) Dehydration (9) Constipation (10) Cholelithiasis (11) Severe sepsis (12) Altered level of consciousness (13) MER (acute kidney injury) (14) Pulmonary hypertension (15) Renal insufficiency (16) Hyperglycemia (17) Gall stones (18) Nausea & vomiting (19) Elevated lactic acid level (20) Abdominal pain Assessment & Plan: 69F with acute abdominal pain. likely biliary colic? resolved now does not seem likely cholecystitis as resolved quickly US noted. lft's mild elevated improving lip wnl pain resolving no n/v US noted lab snoted okay for diet cont iv fluids cont abx will follow with serial exams Liver: Liver measures 14.4 cm. No intrahepatic bile duct dilation. Gallbladder: Stones and sludge in the gallbladder. Nonspecific mild prominence of the gallbladder wall which appears to contain calcifications. No significant pericholecystic fluid. Negative sonographic Vargas's sign. Common bile duct: Normal common bile duct measuring 3.3 mm. No stones. No dilation. Pancreas: Pancreas is not well-visualized due to overlying bowel gas. Kidneys: Right kidney measures 8.8 cm in length. No hydronephrosis or stone. Left kidney measures 9.6 cm in length. No hydronephrosis. Nonobstructing left renal stones measuring up to 10 mm. Spleen: Spleen measures 8.8 cm. No focal lesion. Aorta: Unremarkable. No aneurysm. Inferior vena cava: Unremarkable. Free fluid: No ascites. IMPRESSION: 1. Stones and sludge in the gallbladder. Nonspecific mild prominence of the gallbladder wall which appears to contain calcifications. No significant pericholecystic fluid. Negative sonographic Vargas's sign. 2. Left renal stones. (21) UTI (urinary tract infection) (22) Encephalopathy (23) Anemia (24) Hyperlipidemia associated with type 2 diabetes mellitus (25) Type 2 diabetes mellitus (26) Azotemia Oliver Last Mar 16, 2020 13:03
--- NOTE | 2020-03-16 15:54 | Cardiac Electrophysiology PN ---
Assessment/Plan Assessment/Plan 1. Shortness of breath due to COVID and loss of sense of smell and taste and diarrhea. Echo EF 65% and ruled out for NE . 2. History of hypertension. On Lasix 40 and Norvasc 5 daily 3. Uncontrolled diabetes, on metformin and insulin for further evaluation by Dr. Munoz. 4. History of contracted gallbladder, which is packed with stones by abdominal ultrasound. 5. History of COPD and pulmonary hypertension. 6. Hyperlipidemia. Subjective Subjective Covid is positive in isolation . No new events Objective Last 24 Hour Vital Signs Date Time Temp Pulse Resp B/P (MAP) Pulse Ox O2 Delivery O2 Flow Rate FiO2 03/16/20 12:00 96.3 73 20 120/78 (92) 96 03/16/20 09:00 Nasal Cannula 3.0 03/16/20 08:33 82 136/91 03/16/20 08:00 98.1 82 20 136/91 (106) 96 03/16/20 05:41 99.3 03/16/20 04:00 100.7 85 19 106/64 (78) 93 03/16/20 00:00 99.9 59 17 137/82 (100) 96 03/15/20 21:00 Nasal Cannula 3.0 03/15/20 20:00 99.0 101 22 123/73 (90) 97 03/15/20 16:00 97.2 89 20 143/82 (102) 97 Intake and Output 03/15/20 03/16/20 19:00 07:00 Intake Total 590 ml 360 ml Output Total 300 ml Balance 590 ml 60 ml Intake Oral 480 ml IV Total 110 ml Other 360 ml Output Urine Total 300 ml # Voids 2 2 # Bowel Movements 2 Laboratory Tests Test 03/15/20 20:39 03/16/20 06:13 03/16/20 08:41 03/16/20 11:07 POC Whole Blood Glucose 88 MG/DL (74-106) 185 MG/DL (74-106) H 107 MG/DL (74-106) H 132 MG/DL (74-106) H Objective HEAD AND NECK: No JVD. LUNGS: Coarse rhonchi. CARDIOVASCULAR: Regular S1 and S2 with no gallop or murmur. ABDOMEN: Soft. EXTREMITIES: No pitting edema. Noe Galdamez MD Mar 16, 2020 15:54
[2020-03-16 16:00] VITALS: BP 123/72
[2020-03-16] MEDS: cefTRIAXone 1 GM in D5W 55 ML IVPB SCH (17:18)
[2020-03-16 20:00] VITALS: BP 100/67
--- NOTE | 2020-03-16 23:54 | General Progress Note ---
Subjective Allergies: Coded Allergies: No Known Allergies (Unverified , 11/08/15) Subjective feels OK no abd pain HCV (+) serology Objective Last 24 Hour Vital Signs Date Time Temp Pulse Resp B/P (MAP) Pulse Ox O2 Delivery O2 Flow Rate FiO2 03/16/20 21:00 Nasal Cannula 3.0 03/16/20 20:00 98.9 79 18 100/67 (78) 97 03/16/20 16:00 100.0 88 20 123/72 (89) 98 03/16/20 12:00 96.3 73 20 120/78 (92) 96 03/16/20 09:00 Nasal Cannula 3.0 03/16/20 08:33 82 136/91 03/16/20 08:00 98.1 82 20 136/91 (106) 96 03/16/20 05:41 99.3 03/16/20 04:00 100.7 85 19 106/64 (78) 93 03/16/20 00:00 99.9 59 17 137/82 (100) 96 Intake and Output 03/15/20 03/16/20 19:00 07:00 Intake Total 590 ml 360 ml Output Total 300 ml Balance 590 ml 60 ml Intake Oral 480 ml IV Total 110 ml Other 360 ml Output Urine Total 300 ml # Voids 2 2 # Bowel Movements 2 Laboratory Tests 03/16/20 06:13: POC Whole Blood Glucose 185H 03/16/20 08:41: POC Whole Blood Glucose 107H 03/16/20 11:07: POC Whole Blood Glucose 132H 03/16/20 17:14: POC Whole Blood Glucose [Pending] 03/16/20 20:48: POC Whole Blood Glucose [Pending] Height (Feet): 5 Height (Inches): 4.00 Weight (Pounds): 185 Objective WDWN NCAT supple Coarse BS RR abd soft ND NT no edema Assessment/Plan Status: progressing Assessment/Plan: Assessment - vague, mild abd pain - improved - abnormal LFT- Hepatitis C (+) - cholelithiasis - DM - r/o COVID Recommendations - po as tolerated - imaging to follow - Outpatient HCV eradication Sangeeta Bianchi MD Mar 16, 2020 23:54
[2020-03-17] VITALS: BP 131/76
[2020-03-17 04:00] VITALS: BP 129/72
[2020-03-17] MEDS: NovoLOG Insulin Flexpen SUBQ SCH ×7 (06:14→22:35)
--- NOTE | 2020-03-17 06:45 | General Progress Note ---
Subjective Allergies: Coded Allergies: No Known Allergies (Unverified , 11/08/15) All Systems: reviewed and negative except above Subjective events noted glucose values are elevated Item Value Date Time Bedside Blood Glucose 236 mg/dl H 03/17/20 0630 Bedside Blood Glucose 256 mg/dl H 03/16/20 2100 Bedside Blood Glucose 124 mg/dl H 03/16/20 1716 Bedside Blood Glucose 132 mg/dl H 03/16/20 1122 Coma Scale Total 15 Points 03/16/20 0900 Bedside Blood Glucose 185 mg/dl H 03/16/20 0623 Bedside Blood Glucose 107 mg/dl 03/16/20 0853 Objective Last 24 Hour Vital Signs Date Time Temp Pulse Resp B/P (MAP) Pulse Ox O2 Delivery O2 Flow Rate FiO2 03/17/20 04:00 98.3 74 20 129/72 (91) 94 03/17/20 00:00 97.6 70 18 131/76 (94) 94 03/16/20 21:00 Nasal Cannula 3.0 03/16/20 20:00 98.9 79 18 100/67 (78) 97 03/16/20 16:00 100.0 88 20 123/72 (89) 98 03/16/20 12:00 96.3 73 20 120/78 (92) 96 03/16/20 09:00 Nasal Cannula 3.0 03/16/20 08:33 82 136/91 03/16/20 08:00 98.1 82 20 136/91 (106) 96 Intake and Output 03/16/20 03/17/20 19:00 07:00 Intake Total 834 ml 300 ml Output Total 300 ml 700 ml Balance 534 ml -400 ml Intake Oral 834 ml 300 ml Output Urine Total 300 ml 700 ml # Voids 4 Laboratory Tests 03/16/20 08:41: POC Whole Blood Glucose 107H 03/16/20 11:07: POC Whole Blood Glucose 132H 03/16/20 17:14: POC Whole Blood Glucose [Pending] 03/16/20 20:48: POC Whole Blood Glucose [Pending] 03/17/20 06:04: POC Whole Blood Glucose [Pending] Height (Feet): 5 Height (Inches): 4.00 Weight (Pounds): 185 General Appearance: no apparent distress Neck: normal alignment Cardiovascular: normal rate Objective Current Medications Medications (Trade) Dose Ordered Sig/Tenzin Route PRN Reason Start Time Stop Time Status Last Admin Dose Admin Acetaminophen (Tylenol) 500 mg Q4H PRN ORAL Temp >100.5 03/14/20 16:15 04/13/20 16:14 03/16/20 05:11 Amlodipine Besylate (Norvasc) 5 mg DAILY ORAL 03/13/20 09:00 04/12/20 08:59 03/16/20 08:33 Azithromycin (Zithromax) 500 mg DAILY ORAL 03/13/20 16:30 03/20/20 16:29 03/16/20 08:33 Ceftriaxone Sodium 1 gm/ Dextrose 55 ml @ 110 mls/hr Q24H IVPB 03/14/20 18:00 03/21/20 17:59 03/16/20 17:18 Dexamethasone (Decadron) 6 mg DAILY ORAL 03/17/20 09:00 03/25/20 09:01 Dextrose (Dextrose 50%) 25 ml Q30M PRN IV Hypoglycemia 03/12/20 16:45 06/10/20 16:44 Dextrose (Dextrose 50%) 50 ml Q30M PRN IV Hypoglycemia 03/12/20 16:45 06/10/20 16:44 Furosemide (Lasix) 40 mg DAILY ORAL 03/13/20 09:00 04/12/20 08:59 03/16/20 08:33 Ibuprofen (Advil) 400 mg Q6H PRN ORAL For Pain 03/12/20 16:45 04/11/20 16:44 03/13/20 06:12 Insulin Aspart (NovoLOG) BEFORE MEALS AND HS SUBQ 03/12/20 21:00 06/10/20 20:59 03/17/20 06:14 Insulin Aspart (NovoLOG) 8 units NOVOTIAC SUBQ 03/13/20 11:50 06/11/20 11:49 03/17/20 06:17 Insulin Detemir (Levemir) 24 units DAILY SUBQ 03/13/20 09:00 06/11/20 08:59 03/16/20 08:53 Ondansetron HCl (Zofran) 4 mg Q6H PRN IVP Nausea & Vomiting 03/12/20 16:45 04/11/20 16:44 Assessment/Plan Problem List: (1) Type 2 diabetes mellitus ICD Codes: E11.9 - Type 2 diabetes mellitus without complications SNOMED: 09239301, 305210243 (2) Hyperglycemia ICD Codes: R73.9 - Hyperglycemia, unspecified SNOMED: 02838211 (3) Renal insufficiency ICD Codes: N28.9 - Disorder of kidney and ureter, unspecified SNOMED: 693300847, 521221044 (4) Elevated lactic acid level ICD Codes: R79.89 - Other specified abnormal findings of blood chemistry SNOMED: 0421788 Status: progressing Assessment/Plan: increase Levemir to 30 units qam continue Novolog 8 units ac tid + SSI hypoglycemia protocol in order Marcin Munoz MD Mar 17, 2020 06:45
[2020-03-17 08:00] VITALS: BP 126/80
[2020-03-17] MEDS: Azithromycin 250mg tab ORAL SCH (09:06)
[2020-03-17] MEDS: Furosemide 40mg tab ORAL SCH (09:06)
[2020-03-17] MEDS: Levemir Flexpen SUBQ SCH (10:25)
--- NOTE | 2020-03-17 11:56 | Infectious Diseases Prog Note ---
Assessment/Plan Assessment/Plan IMPRESSION: COVID19 disease, COPD, may have mild exacerbation. MRSA carrier Diabetes mellitus with hyperglycemia, Pulmonary hypertension, Diastolic CHF, Parkinson disease, Elevated transaminase, anemia. RECOMMENDATION: Continue Zithromax & Rocephin. Continue Dexamethasone Subjective ROS Limited/Unobtainable: Yes Constitutional: Reports: other - dosen't feel good Respiratory: Reports: no symptoms Allergies: Coded Allergies: No Known Allergies (Unverified , 11/08/15) Objective Last 24 Hour Vital Signs Date Time Temp Pulse Resp B/P (MAP) Pulse Ox O2 Delivery O2 Flow Rate FiO2 03/17/20 09:06 77 126/80 03/17/20 08:00 96.3 77 20 126/80 (95) 98 03/17/20 04:00 98.3 74 20 129/72 (91) 94 03/17/20 00:00 97.6 70 18 131/76 (94) 94 03/16/20 21:00 Nasal Cannula 3.0 03/16/20 20:00 98.9 79 18 100/67 (78) 97 03/16/20 16:00 100.0 88 20 123/72 (89) 98 03/16/20 12:00 96.3 73 20 120/78 (92) 96 Height (Feet): 5 Height (Inches): 4.00 Weight (Pounds): 185 General Appearance: no acute distress HEENT: mucous membranes moist Respiratory/Chest: lungs clear, other - oxygen by nasal cannula Cardiovascular: normal rate Abdomen: soft, non tender Extremities: no edema Neurologic/Psychiatric: alert, responsive, other - tremor Laboratory Tests Test 03/16/20 17:14 03/16/20 20:48 03/17/20 06:04 03/17/20 11:36 POC Whole Blood Glucose Pending Pending Pending 353 MG/DL (74-106) H Current Medications Medications (Trade) Dose Ordered Sig/Tenzin Route PRN Reason Start Time Stop Time Status Last Admin Dose Admin Acetaminophen (Tylenol) 500 mg Q4H PRN ORAL Temp >100.5 03/14/20 16:15 04/13/20 16:14 03/16/20 05:11 Amlodipine Besylate (Norvasc) 5 mg DAILY ORAL 03/13/20 09:00 04/12/20 08:59 03/17/20 09:06 Azithromycin (Zithromax) 500 mg DAILY ORAL 03/13/20 16:30 03/20/20 16:29 03/17/20 09:06 Ceftriaxone Sodium 1 gm/ Dextrose 55 ml @ 110 mls/hr Q24H IVPB 03/14/20 18:00 03/21/20 17:59 03/16/20 17:18 Dexamethasone (Decadron) 6 mg DAILY ORAL 03/17/20 09:00 03/25/20 09:01 03/17/20 09:06 Dextrose (Dextrose 50%) 25 ml Q30M PRN IV Hypoglycemia 03/12/20 16:45 06/10/20 16:44 Dextrose (Dextrose 50%) 50 ml Q30M PRN IV Hypoglycemia 03/12/20 16:45 06/10/20 16:44 Furosemide (Lasix) 40 mg DAILY ORAL 03/13/20 09:00 04/12/20 08:59 03/17/20 09:06 Ibuprofen (Advil) 400 mg Q6H PRN ORAL For Pain 03/12/20 16:45 04/11/20 16:44 03/13/20 06:12 Insulin Aspart (NovoLOG) BEFORE MEALS AND HS SUBQ 03/12/20 21:00 06/10/20 20:59 03/17/20 06:14 Insulin Aspart (NovoLOG) 8 units NOVOTIAC SUBQ 03/13/20 11:50 06/11/20 11:49 03/17/20 06:17 Insulin Detemir (Levemir) 30 units DAILY SUBQ 03/17/20 09:00 06/11/20 08:59 03/17/20 10:25 Ondansetron HCl (Zofran) 4 mg Q6H PRN IVP Nausea & Vomiting 03/12/20 16:45 04/11/20 16:44 Rogelio Martinez MD Mar 17, 2020 11:56
[2020-03-17 12:00] VITALS: BP 141/54
[2020-03-17 12:18] LABS: BASOPHILS % (AUTO) 0.4 % (0.0-2.0); EOSINOPHILS % (AUTO) 0.1 % (0.0-3.0); HEMATOCRIT 37.2 % (37.0-47.0); HEMOGLOBIN 12.5 G/DL (12.0-16.0); LYMPHOCYTES % (AUTO) 16.2 % (20.0-45.0); MEAN CORPUSCULAR VOLUME 90 FL (80-99); MONOCYTES % (AUTO) 7.4 % (1.0-10.0); PLATELET COUNT 201 K/UL (150-450); RED BLOOD COUNT 4.13 M/UL (4.20-5.40); RED CELL DISTRIBUTION WIDTH 14.6 % (11.6-14.8); WHITE BLOOD COUNT 6.9 K/UL (4.8-10.8)
[2020-03-17 12:48] LABS: ALANINE AMINOTRANSFERASE 38 U/L (12-78); ALBUMIN 2.6 G/DL (3.4-5.0); ALBUMIN/GLOBULIN RATIO 0.6 (1.0-2.7); ALKALINE PHOSPHATASE 59 U/L (46-116); ANION GAP 5 mmol/L (5-15); ASPARTATE AMINO TRANSFERASE 50 U/L (15-37); BILIRUBIN,TOTAL 0.2 MG/DL (0.2-1.0); BLOOD UREA NITROGEN 33 mg/dL (7-18); CALCIUM 8.4 MG/DL (8.5-10.1); CARBON DIOXIDE 31 MMOL/L (21-32); CHLORIDE 98 MMOL/L (98-107); CHOLESTEROL 132 MG/DL (< 200); CREATININE 1.2 MG/DL (0.55-1.30); GAMMA GLUTAMYL TRANSPEPTIDASE 44 U/L (5-85); HDL CHOLESTEROL 40 MG/DL (40-60); LACTATE DEHYDROGENASE 290 U/L (81-234); PHOSPHORUS 3.9 MG/DL (2.5-4.9); POTASSIUM 4.9 MMOL/L (3.5-5.1); SODIUM 134 MMOL/L (136-145); TRIGLYCERIDES 138 MG/DL (30-150)
--- NOTE | 2020-03-17 13:22 | Pulmonology Progress Note ---
Subjective ROS Limited/Unobtainable: Yes Interval Events: none major Constitutional: Reports: other - dosen't feel good HEENT: Repors: no symptoms Respiratory: Reports: no symptoms, other - mild intermittent cough Cardiovascular: Reports: no symptoms Gastrointestinal/Abdominal: Reports: no symptoms Genitourinary: Reports: no symptoms Neurologic: Reports: no symptoms, other Allergies: Coded Allergies: No Known Allergies (Unverified , 11/08/15) All Systems: reviewed and negative except above Subjective still having abd pain- stable Objective Last 24 Hour Vital Signs Date Time Temp Pulse Resp B/P (MAP) Pulse Ox O2 Delivery O2 Flow Rate FiO2 03/17/20 12:00 97.3 85 20 141/54 (83) 95 03/17/20 09:06 77 126/80 03/17/20 08:00 96.3 77 20 126/80 (95) 98 03/17/20 04:00 98.3 74 20 129/72 (91) 94 03/17/20 00:00 97.6 70 18 131/76 (94) 94 03/16/20 21:00 Nasal Cannula 3.0 03/16/20 20:00 98.9 79 18 100/67 (78) 97 03/16/20 16:00 100.0 88 20 123/72 (89) 98 Intake and Output 03/16/20 03/17/20 19:00 07:00 Intake Total 834 ml 300 ml Output Total 300 ml 700 ml Balance 534 ml -400 ml Intake Oral 834 ml 300 ml Output Urine Total 300 ml 700 ml # Voids 4 Objective 03/17/2020 alert, watching tv in bed; saturating 94% on 3 lpm NC 03/16/2020 alert, laying in bed; saturating 93% on 3.5 lpm NC General Appearance: no acute distress HEENT: normocephalic Respiratory: chest wall non-tender Cardiovascular: normal peripheral pulses, normal rate, other - murmur appreciated Abdomen: normal bowel sounds Neurologic: other - tremor Laboratory Tests 03/16/20 17:14: POC Whole Blood Glucose [Pending] 03/16/20 20:48: POC Whole Blood Glucose [Pending] 03/17/20 06:04: POC Whole Blood Glucose [Pending] 03/17/20 11:36: POC Whole Blood Glucose 353H 03/17/20 11:45: White Blood Count 6.9, Red Blood Count 4.13L, Hemoglobin 12.5, Hematocrit 37.2, Mean Corpuscular Volume 90, Mean Corpuscular Hemoglobin 30.2, Mean Corpuscular Hemoglobin Concent 33.5, Red Cell Distribution Width 14.6, Platelet Count 201, Mean Platelet Volume 6.8, Neutrophils (%) (Auto) 76.0H, Lymphocytes (%) (Auto) 16.2L, Monocytes (%) (Auto) 7.4, Eosinophils (%) (Auto) 0.1, Basophils (%) ( Auto) 0.4, Sodium Level 134L, Potassium Level 4.9, Chloride Level 98, Carbon Dioxide Level 31, Anion Gap 5, Blood Urea Nitrogen 33H, Creatinine 1.2, Estimat Glomerular Filtration Rate 44.5, Glucose Level 363H, Hemoglobin A1c 9.8H, Uric Acid 6.8, Calcium Level 8.4L, Phosphorus Level 3.9, Magnesium Level 1.9, Total Bilirubin 0.2, Gamma Glutamyl Transpeptidase 44, Aspartate Amino Transf (AST/SGOT) 50H, Alanine Aminotransferase (ALT/SGPT) 38, Alkaline Phosphatase 59, Lactate Dehydrogenase 290H, C-Reactive Protein, Quantitative < 0.4, Pro-B-Type Natriuretic Peptide 424H, Total Protein 7.0, Albumin 2.6L, Globulin 4.4, Albumin/Globulin Ratio 0.6L, Triglycerides Level 138, Cholesterol Level 132, LDL Cholesterol 62, HDL Cholesterol 40, Cholesterol/HDL Ratio 3.3, Thyroid Stimulating Hormone (TSH) 0.235L Current Medications Medications (Trade) Dose Ordered Sig/Tenzin Route PRN Reason Start Time Stop Time Status Last Admin Dose Admin Acetaminophen (Tylenol) 500 mg Q4H PRN ORAL Temp >100.5 03/14/20 16:15 04/13/20 16:14 03/16/20 05:11 Amlodipine Besylate (Norvasc) 5 mg DAILY ORAL 03/13/20 09:00 04/12/20 08:59 03/17/20 09:06 Azithromycin (Zithromax) 500 mg DAILY ORAL 03/13/20 16:30 03/20/20 16:29 03/17/20 09:06 Ceftriaxone Sodium 1 gm/ Dextrose 55 ml @ 110 mls/hr Q24H IVPB 03/14/20 18:00 03/21/20 17:59 03/16/20 17:18 Dexamethasone (Decadron) 6 mg DAILY ORAL 03/17/20 09:00 03/25/20 09:01 03/17/20 09:06 Dextrose (Dextrose 50%) 25 ml Q30M PRN IV Hypoglycemia 03/12/20 16:45 06/10/20 16:44 Dextrose (Dextrose 50%) 50 ml Q30M PRN IV Hypoglycemia 03/12/20 16:45 06/10/20 16:44 Furosemide (Lasix) 40 mg DAILY ORAL 03/13/20 09:00 04/12/20 08:59 03/17/20 09:06 Ibuprofen (Advil) 400 mg Q6H PRN ORAL For Pain 03/12/20 16:45 04/11/20 16:44 03/13/20 06:12 Insulin Aspart (NovoLOG) BEFORE MEALS AND HS SUBQ 03/12/20 21:00 06/10/20 20:59 03/17/20 12:19 Insulin Aspart (NovoLOG) 8 units NOVOTIAC SUBQ 03/13/20 11:50 06/11/20 11:49 03/17/20 12:19 Insulin Detemir (Levemir) 30 units DAILY SUBQ 03/17/20 09:00 06/11/20 08:59 03/17/20 10:25 Ondansetron HCl (Zofran) 4 mg Q6H PRN IVP Nausea & Vomiting 03/12/20 16:45 04/11/20 16:44 Assessment/Plan Assessment/Plan 1. Anosmia and dysgeusia, concern high for COVID-19 pneumonia. - Serology confirmed COVID-19 - Saturating 94% on 3 lpm NC 2. Parkinson's. 3. Confirmed COVID 19 pneumonia - Cont Dexamethasone, zithromax, and rocephin per ID 4. Hep C serology positive - Elevated AST - Outpatinet HCV eradication 5. Uncontrolled blood glucose - A1c 9.8 - glucose-lowering agents added per general MD The care for this patient was discussed with my supervising physician Seen and examined by Dr. Byrne as well Time spent for this case was approximately 31 minutes Tony Weathers Mar 17, 2020 13:22
--- NOTE | 2020-03-17 14:28 | Cardiac Electrophysiology PN ---
Assessment/Plan Assessment/Plan 1. COVID PNA and loss of sense of smell and taste and diarrhea. Echo EF 65% and ruled out for [place] . 2. History of hypertension. On Lasix 40 and Norvasc 5 daily 3. Uncontrolled diabetes, on metformin and insulin by Dr. Munoz. 4. History of contracted gallbladder, which is packed with stones by abdominal ultrasound. 5. History of COPD and pulmonary hypertension. 6. Hyperlipidemia. Subjective Subjective In Covid isolation . No new events Objective Last 24 Hour Vital Signs Date Time Temp Pulse Resp B/P (MAP) Pulse Ox O2 Delivery O2 Flow Rate FiO2 03/17/20 12:00 97.3 85 20 141/54 (83) 95 03/17/20 09:06 77 126/80 03/17/20 08:00 96.3 77 20 126/80 (95) 98 03/17/20 04:00 98.3 74 20 129/72 (91) 94 03/17/20 00:00 97.6 70 18 131/76 (94) 94 03/16/20 21:00 Nasal Cannula 3.0 03/16/20 20:00 98.9 79 18 100/67 (78) 97 03/16/20 16:00 100.0 88 20 123/72 (89) 98 Intake and Output 03/16/20 03/17/20 19:00 07:00 Intake Total 834 ml 300 ml Output Total 300 ml 700 ml Balance 534 ml -400 ml Intake Oral 834 ml 300 ml Output Urine Total 300 ml 700 ml # Voids 4 Laboratory Tests Test 03/16/20 17:14 03/16/20 20:48 03/17/20 06:04 03/17/20 11:36 POC Whole Blood Glucose Pending Pending Pending 353 MG/DL (74-106) H Test 03/17/20 11:45 White Blood Count 6.9 K/UL (4.8-10.8) Red Blood Count 4.13 M/UL (4.20-5.40) L Hemoglobin 12.5 G/DL (12.0-16.0) Hematocrit 37.2 % (37.0-47.0) Mean Corpuscular Volume 90 FL (80-99) Mean Corpuscular Hemoglobin 30.2 PG (27.0-31.0) Mean Corpuscular Hemoglobin Concent 33.5 G/DL (32.0-36.0) Red Cell Distribution Width 14.6 % (11.6-14.8) Platelet Count 201 K/UL (150-450) Mean Platelet Volume 6.8 FL (6.5-10.1) Neutrophils (%) (Auto) 76.0 % (45.0-75.0) H Lymphocytes (%) (Auto) 16.2 % (20.0-45.0) L Monocytes (%) (Auto) 7.4 % (1.0-10.0) Eosinophils (%) (Auto) 0.1 % (0.0-3.0) Basophils (%) (Auto) 0.4 % (0.0-2.0) Sodium Level 134 MMOL/L (136-145) L Potassium Level 4.9 MMOL/L (3.5-5.1) Chloride Level 98 MMOL/L (98-107) Carbon Dioxide Level 31 MMOL/L (21-32) Anion Gap 5 mmol/L (5-15) Blood Urea Nitrogen 33 mg/dL (7-18) H Creatinine 1.2 MG/DL (0.55-1.30) Estimat Glomerular Filtration Rate 44.5 mL/min (>60) Glucose Level 363 MG/DL (74-106) H Hemoglobin A1c 9.8 % (4.3-6.0) H Uric Acid 6.8 MG/DL (2.6-7.2) Calcium Level 8.4 MG/DL (8.5-10.1) L Phosphorus Level 3.9 MG/DL (2.5-4.9) Magnesium Level 1.9 MG/DL (1.8-2.4) Total Bilirubin 0.2 MG/DL (0.2-1.0) Gamma Glutamyl Transpeptidase 44 U/L (5-85) Aspartate Amino Transf (AST/SGOT) 50 U/L (15-37) H Alanine Aminotransferase (ALT/SGPT) 38 U/L (12-78) Alkaline Phosphatase 59 U/L (46-116) Lactate Dehydrogenase 290 U/L (81-234) H C-Reactive Protein, Quantitative < 0.4 mg/dL (0.00-0.90) Pro-B-Type Natriuretic Peptide 424 pg/mL (0-125) H Total Protein 7.0 G/DL (6.4-8.2) Albumin 2.6 G/DL (3.4-5.0) L Globulin 4.4 g/dL Albumin/Globulin Ratio 0.6 (1.0-2.7) L Triglycerides Level 138 MG/DL (30-150) Cholesterol Level 132 MG/DL (< 200) LDL Cholesterol 62 mg/dL (<100) HDL Cholesterol 40 MG/DL (40-60) Cholesterol/HDL Ratio 3.3 (3.3-4.4) Thyroid Stimulating Hormone (TSH) 0.235 uiU/mL (0.358-3.740) Objective HEAD AND NECK: No JVD. LUNGS: Coarse rhonchi. CARDIOVASCULAR: Regular S1 and S2 with no gallop or murmur. ABDOMEN: Soft. EXTREMITIES: No pitting edema. Noe Galdamez MD Mar 17, 2020 14:28
[2020-03-17 16:00] VITALS: BP 144/82
--- NOTE | 2020-03-17 16:21 | Surgery Progress Note ---
Surgery Progress Note Subjective Symptoms: improved Objective Last 24 Hour Vital Signs Date Time Temp Pulse Resp B/P (MAP) Pulse Ox O2 Delivery O2 Flow Rate FiO2 03/17/20 12:00 97.3 85 20 141/54 (83) 95 03/17/20 09:06 77 126/80 03/17/20 08:00 96.3 77 20 126/80 (95) 98 03/17/20 04:00 98.3 74 20 129/72 (91) 94 03/17/20 00:00 97.6 70 18 131/76 (94) 94 03/16/20 21:00 Nasal Cannula 3.0 03/16/20 20:00 98.9 79 18 100/67 (78) 97 I&O Intake and Output 03/16/20 03/17/20 19:00 07:00 Intake Total 834 ml 300 ml Output Total 300 ml 700 ml Balance 534 ml -400 ml Intake Oral 834 ml 300 ml Output Urine Total 300 ml 700 ml # Voids 4 Dressing: dry Cardiovascular: RSR Respiratory: clear Abdomen: soft, non-tender, present bowel sounds Extremities: no edema, no tenderness, no cyanosis Laboratory Tests Test 03/16/20 17:14 03/16/20 20:48 03/17/20 06:04 03/17/20 11:36 POC Whole Blood Glucose Pending Pending Pending 353 MG/DL (74-106) H Test 03/17/20 11:45 White Blood Count 6.9 K/UL (4.8-10.8) Red Blood Count 4.13 M/UL (4.20-5.40) L Hemoglobin 12.5 G/DL (12.0-16.0) Hematocrit 37.2 % (37.0-47.0) Mean Corpuscular Volume 90 FL (80-99) Mean Corpuscular Hemoglobin 30.2 PG (27.0-31.0) Mean Corpuscular Hemoglobin Concent 33.5 G/DL (32.0-36.0) Red Cell Distribution Width 14.6 % (11.6-14.8) Platelet Count 201 K/UL (150-450) Mean Platelet Volume 6.8 FL (6.5-10.1) Neutrophils (%) (Auto) 76.0 % (45.0-75.0) H Lymphocytes (%) (Auto) 16.2 % (20.0-45.0) L Monocytes (%) (Auto) 7.4 % (1.0-10.0) Eosinophils (%) (Auto) 0.1 % (0.0-3.0) Basophils (%) (Auto) 0.4 % (0.0-2.0) Sodium Level 134 MMOL/L (136-145) L Potassium Level 4.9 MMOL/L (3.5-5.1) Chloride Level 98 MMOL/L (98-107) Carbon Dioxide Level 31 MMOL/L (21-32) Anion Gap 5 mmol/L (5-15) Blood Urea Nitrogen 33 mg/dL (7-18) H Creatinine 1.2 MG/DL (0.55-1.30) Estimat Glomerular Filtration Rate 44.5 mL/min (>60) Glucose Level 363 MG/DL (74-106) H Hemoglobin A1c 9.8 % (4.3-6.0) H Uric Acid 6.8 MG/DL (2.6-7.2) Calcium Level 8.4 MG/DL (8.5-10.1) L Phosphorus Level 3.9 MG/DL (2.5-4.9) Magnesium Level 1.9 MG/DL (1.8-2.4) Total Bilirubin 0.2 MG/DL (0.2-1.0) Gamma Glutamyl Transpeptidase 44 U/L (5-85) Aspartate Amino Transf (AST/SGOT) 50 U/L (15-37) H Alanine Aminotransferase (ALT/SGPT) 38 U/L (12-78) Alkaline Phosphatase 59 U/L (46-116) Lactate Dehydrogenase 290 U/L (81-234) H C-Reactive Protein, Quantitative < 0.4 mg/dL (0.00-0.90) Pro-B-Type Natriuretic Peptide 424 pg/mL (0-125) H Total Protein 7.0 G/DL (6.4-8.2) Albumin 2.6 G/DL (3.4-5.0) L Globulin 4.4 g/dL Albumin/Globulin Ratio 0.6 (1.0-2.7) L Triglycerides Level 138 MG/DL (30-150) Cholesterol Level 132 MG/DL (< 200) LDL Cholesterol 62 mg/dL (<100) HDL Cholesterol 40 MG/DL (40-60) Cholesterol/HDL Ratio 3.3 (3.3-4.4) Thyroid Stimulating Hormone (TSH) 0.235 uiU/mL (0.358-3.740) Plan Problems: (1) Fever (2) Hypoalbuminemia (3) Abnormal LFTs (4) Elevated CEA (5) Vaginal discharge (6) Vomiting and diarrhea (7) COPD exacerbation (8) Dehydration (9) Constipation (10) Cholelithiasis (11) Severe sepsis (12) Altered level of consciousness (13) MER (acute kidney injury) (14) Pulmonary hypertension (15) Renal insufficiency (16) Hyperglycemia (17) Gall stones (18) Nausea & vomiting (19) Elevated lactic acid level (20) Abdominal pain Assessment & Plan: 69F with acute abdominal pain. likely biliary colic? resolved now does not seem likely cholecystitis as resolved quickly US noted. lft's mild elevated improving lip wnl pain resolving no n/v US noted lab snoted okay for diet cont iv fluids cont abx will follow with serial exams Liver: Liver measures 14.4 cm. No intrahepatic bile duct dilation. Gallbladder: Stones and sludge in the gallbladder. Nonspecific mild prominence of the gallbladder wall which appears to contain calcifications. No significant pericholecystic fluid. Negative sonographic Vargas's sign. Common bile duct: Normal common bile duct measuring 3.3 mm. No stones. No dilation. Pancreas: Pancreas is not well-visualized due to overlying bowel gas. Kidneys: Right kidney measures 8.8 cm in length. No hydronephrosis or stone. Left kidney measures 9.6 cm in length. No hydronephrosis. Nonobstructing left renal stones measuring up to 10 mm. Spleen: Spleen measures 8.8 cm. No focal lesion. Aorta: Unremarkable. No aneurysm. Inferior vena cava: Unremarkable. Free fluid: No ascites. IMPRESSION: 1. Stones and sludge in the gallbladder. Nonspecific mild prominence of the gallbladder wall which appears to contain calcifications. No significant pericholecystic fluid. Negative sonographic Vargas's sign. 2. Left renal stones. (21) UTI (urinary tract infection) (22) Encephalopathy (23) Anemia (24) Hyperlipidemia associated with type 2 diabetes mellitus (25) Type 2 diabetes mellitus (26) Azotemia Oliver Last Mar 17, 2020 16:21
[2020-03-17] MEDS: cefTRIAXone 1 GM in D5W 55 ML IVPB SCH (18:08)
[2020-03-17 20:00] VITALS: BP 123/74
--- NOTE | 2020-03-17 21:42 | General Progress Note ---
Subjective ROS Limited/Unobtainable: Yes Allergies: Coded Allergies: No Known Allergies (Unverified , 11/08/15) Objective Last 24 Hour Vital Signs Date Time Temp Pulse Resp B/P (MAP) Pulse Ox O2 Delivery O2 Flow Rate FiO2 03/17/20 16:00 98.4 71 20 144/82 (102) 95 03/17/20 12:00 97.3 85 20 141/54 (83) 95 03/17/20 09:06 77 126/80 03/17/20 09:00 Nasal Cannula 3.0 03/17/20 08:00 96.3 77 20 126/80 (95) 98 03/17/20 04:00 98.3 74 20 129/72 (91) 94 03/17/20 00:00 97.6 70 18 131/76 (94) 94 Intake and Output 03/16/20 03/17/20 19:00 07:00 Intake Total 834 ml 300 ml Output Total 300 ml 700 ml Balance 534 ml -400 ml Intake Oral 834 ml 300 ml Output Urine Total 300 ml 700 ml # Voids 4 Laboratory Tests 03/17/20 06:04: POC Whole Blood Glucose [Pending] 03/17/20 11:36: POC Whole Blood Glucose 353H 03/17/20 11:45: White Blood Count 6.9, Red Blood Count 4.13L, Hemoglobin 12.5, Hematocrit 37.2, Mean Corpuscular Volume 90, Mean Corpuscular Hemoglobin 30.2, Mean Corpuscular Hemoglobin Concent 33.5, Red Cell Distribution Width 14.6, Platelet Count 201, Mean Platelet Volume 6.8, Neutrophils (%) (Auto) 76.0H, Lymphocytes (%) (Auto) 16.2L, Monocytes (%) (Auto) 7.4, Eosinophils (%) (Auto) 0.1, Basophils (%) (Auto) 0.4, Sodium Level 134L, Potassium Level 4.9, Chloride Level 98, Carbon Dioxide Level 31, Anion Gap 5, Blood Urea Nitrogen 33H, Creatinine 1.2, Estimat Glomerular Filtration Rate 44.5, Glucose Level 363H, Hemoglobin A1c 9.8H, Uric Acid 6.8, Calcium Level 8.4L, Phosphorus Level 3.9, Magnesium Level 1.9, Total Bilirubin 0.2, Gamma Glutamyl Transpeptidase 44, Aspartate Amino Transf (AST/SGOT) 50H, Alanine Aminotransferase (ALT/SGPT) 38, Alkaline Phosphatase 59, Lactate Dehydrogenase 290H, C-Reactive Protein, Quantitative < 0.4, Pro-B-Type Natriuretic Peptide 424H, Total Protein 7.0, Albumin 2.6L, Globulin 4.4, Albumin/Globulin Ratio 0.6L, Triglycerides Level 138, Cholesterol Level 132, LDL Cholesterol 62, HDL Cholesterol 40, Cholesterol/HDL Ratio 3.3, Thyroid Stimulating Hormone (TSH) 0.235L 03/17/20 18:11: POC Whole Blood Glucose 339H Height (Feet): 5 Height (Inches): 4.00 Weight (Pounds): 185 Assessment/Plan Problem List: (1) Pulmonary hypertension ICD Codes: I27.20 - Pulmonary hypertension, unspecified SNOMED: 48984139 (2) Cholelithiasis ICD Codes: K80.20 - Calculus of gallbladder without cholecystitis without obstruction SNOMED: 436276309 (3) Dehydration ICD Codes: E86.0 - Dehydration SNOMED: 93793192 (4) Fever ICD Codes: R50.9 - Fever, unspecified SNOMED: 375800845 (5) Abdominal pain ICD Codes: R10.9 - Unspecified abdominal pain SNOMED: 70313148 Qualifiers: Qualified Codes: R10.11 - Right upper quadrant pain (6) Severe sepsis ICD Codes: A41.9 - Sepsis, unspecified organism; R65.20 - Severe sepsis without septic shock SNOMED: 15711792 (7) MER (acute kidney injury) ICD Codes: N17.9 - Acute kidney failure, unspecified SNOMED: 2099005, 65625419 (8) Abnormal LFTs ICD Codes: R79.89 - Other specified abnormal findings of blood chemistry SNOMED: 780499629 (9) COPD exacerbation ICD Codes: J44.1 - Chronic obstructive pulmonary disease with (acute) exacerbation SNOMED: 749350077 (10) Anemia ICD Codes: D64.9 - Anemia, unspecified SNOMED: 607630653 (11) Type 2 diabetes mellitus ICD Codes: E11.9 - Type 2 diabetes mellitus without complications SNOMED: 98914766, 389786000 (12) Azotemia ICD Codes: R79.89 - Other specified abnormal findings of blood chemistry SNOMED: 458153976 Status: progressing Assessment/Plan: gallstone clinically improving sugar is improving covid positive abdominal pain elevated sugar Amelie Rios MD Mar 17, 2020 21:42
--- NOTE | 2020-03-17 23:49 | General Progress Note ---
Subjective Allergies: Coded Allergies: No Known Allergies (Unverified , 11/08/15) Subjective feels OK no abd pain HCV (+) serology Objective Last 24 Hour Vital Signs Date Time Temp Pulse Resp B/P (MAP) Pulse Ox O2 Delivery O2 Flow Rate FiO2 03/17/20 21:00 Nasal Cannula 3.0 03/17/20 20:00 97.8 99 20 123/74 (90) 99 03/17/20 16:00 98.4 71 20 144/82 (102) 95 03/17/20 12:00 97.3 85 20 141/54 (83) 95 03/17/20 09:06 77 126/80 03/17/20 09:00 Nasal Cannula 3.0 03/17/20 08:00 96.3 77 20 126/80 (95) 98 03/17/20 04:00 98.3 74 20 129/72 (91) 94 03/17/20 00:00 97.6 70 18 131/76 (94) 94 Intake and Output 03/16/20 03/17/20 18:59 06:59 Intake Total 834 ml 300 ml Output Total 300 ml 700 ml Balance 534 ml -400 ml Intake Oral 834 ml 300 ml Output Urine Total 300 ml 700 ml # Voids 4 Laboratory Tests 03/17/20 06:04: POC Whole Blood Glucose [Pending] 03/17/20 11:36: POC Whole Blood Glucose 353H 03/17/20 11:45: White Blood Count 6.9, Red Blood Count 4.13L, Hemoglobin 12.5, Hematocrit 37.2, Mean Corpuscular Volume 90, Mean Corpuscular Hemoglobin 30.2, Mean Corpuscular Hemoglobin Concent 33.5, Red Cell Distribution Width 14.6, Platelet Count 201, Mean Platelet Volume 6.8, Neutrophils (%) (Auto) 76.0H, Lymphocytes (%) (Auto) 16.2L, Monocytes (%) (Auto) 7.4, Eosinophils (%) (Auto) 0.1, Basophils (%) (Auto) 0.4, Sodium Level 134L, Potassium Level 4.9, Chloride Level 98, Carbon Dioxide Level 31, Anion Gap 5, Blood Urea Nitrogen 33H, Creatinine 1.2, Estimat Glomerular Filtration Rate 44.5, Glucose Level 363H, Hemoglobin A1c 9.8H, Uric Acid 6.8, Calcium Level 8.4L, Phosphorus Level 3.9, Magnesium Level 1.9, Total Bilirubin 0.2, Gamma Glutamyl Transpeptidase 44, Aspartate Amino Transf (AST/SGOT) 50H, Alanine Aminotransferase (ALT/SGPT) 38, Alkaline Phosphatase 59, Lactate Dehydrogenase 290H, C-Reactive Protein, Quantitative < 0.4, Pro-B-Type Natriuretic Peptide 424H, Total Protein 7.0, Albumin 2.6L, Globulin 4.4, A lbumin/Globulin Ratio 0.6L, Triglycerides Level 138, Cholesterol Level 132, LDL Cholesterol 62, HDL Cholesterol 40, Cholesterol/HDL Ratio 3.3, Thyroid Stimulating Hormone (TSH) 0.235L 03/17/20 18:11: POC Whole Blood Glucose 339H 03/17/20 22:21: POC Whole Blood Glucose 332H Height (Feet): 5 Height (Inches): 4.00 Weight (Pounds): 185 Objective WDWN NCAT supple Coarse BS RR abd soft ND NT no edema Assessment/Plan Status: progressing Assessment/Plan: Assessment - vague, mild abd pain - improved - abnormal LFT- Hepatitis C (+) - cholelithiasis - DM - r/o COVID Recommendations - po as tolerated - imaging to follow - Outpatient HCV eradication Sangeeta Bianchi MD Mar 17, 2020 23:49
[2020-03-18] VITALS: BP 131/82
[2020-03-18 04:00] VITALS: BP 111/69
[2020-03-18] MEDS: NovoLOG Insulin Flexpen SUBQ SCH ×7 (06:30→21:01)
--- NOTE | 2020-03-18 06:52 | General Progress Note ---
Subjective ROS Limited/Unobtainable: No Allergies: Coded Allergies: No Known Allergies (Unverified , 11/08/15) Objective Last 24 Hour Vital Signs Date Time Temp Pulse Resp B/P (MAP) Pulse Ox O2 Delivery O2 Flow Rate FiO2 03/18/20 04:00 98.6 108 18 111/69 (83) 95 03/18/20 00:00 98.3 111 18 131/82 (98) 94 03/17/20 21:00 Nasal Cannula 3.0 03/17/20 20:00 97.8 99 20 123/74 (90) 99 03/17/20 16:00 98.4 71 20 144/82 (102) 95 03/17/20 12:00 97.3 85 20 141/54 (83) 95 03/17/20 09:06 77 126/80 03/17/20 09:00 Nasal Cannula 3.0 03/17/20 08:00 96.3 77 20 126/80 (95) 98 Intake and Output 03/17/20 03/18/20 19:00 07:00 Intake Total 480 ml 320 ml Output Total 500 ml 700 ml Balance -20 ml -380 ml Intake Oral 480 ml 320 ml Output Urine Total 500 ml 700 ml # Voids 2 Laboratory Tests 03/17/20 11:36: POC Whole Blood Glucose 353H 03/17/20 11:45: White Blood Count 6.9, Red Blood Count 4.13L, Hemoglobin 12.5, Hematocrit 37.2, Mean Corpuscular Volume 90, Mean Corpuscular Hemoglobin 30.2, Mean Corpuscular Hemoglobin Concent 33.5, Red Cell Distribution Width 14.6, Platelet Count 201, Mean Platelet Volume 6.8, Neutrophils (%) (Auto) 76.0H, Lymphocytes (%) (Auto) 16.2L, Monocytes (%) (Auto) 7.4, Eosinophils (%) (Auto) 0.1, Basophils (%) (Auto) 0.4, Sodium Level 134L, Potassium Level 4.9, Chloride Level 98, Carbon Dioxide Level 31, Anion Gap 5, Blood Urea Nitrogen 33H, Creatinine 1.2, Estimat Glomerular Filtration Rate 44.5, Glucose Level 363H, Hemoglobin A1c 9.8H, Uric Acid 6.8, Calcium Level 8.4L, Phosphorus Level 3.9, Magnesium Level 1.9, Total Bilirubin 0.2, Gamma Glutamyl Transpeptidase 44, Aspartate Amino Transf (AST/SGOT) 50H, Alanine Aminotransferase (ALT/SGPT) 38, Alkaline Phosphatase 59, Lactate Dehydrogenase 290H, C-Reactive Protein, Quantitative < 0.4, Pro-B-Type Natriuretic Peptide 424H, Total Protein 7.0, Albumin 2.6L, Globulin 4.4, Albumin/Globulin Ratio 0.6L, Triglycerides Level 138, Cholesterol Level 132, LDL Cholesterol 62, HDL Cholesterol 40, Cholesterol/HDL Ratio 3.3, Thyroid Stimulating Hormone (TSH) 0.235L 03/17/20 18:11: POC Whole Blood Glucose 339H 03/17/20 22:21: POC Whole Blood Glucose 332H Height (Feet): 5 Height (Inches): 4.00 Weight (Pounds): 185 General Appearance: no apparent distress EENT: normal ENT inspection Neck: supple Cardiovascular: normal rate Respiratory/Chest: decreased breath sounds Abdomen: normal bowel sounds, non tender, soft Extremities: non-tender Assessment/Plan Status: progressing Assessment/Plan: Assessment/Plan Status: progressing Assessment/Plan: Assessment - vague, mild abd pain - improved - abnormal LFT- Hepatitis C (+) - cholelithiasis - DM - r/o COVID Recommendations - po as tolerated - imaging to follow - Outpatient HCV eradication Isaias Tamez MD Mar 18, 2020 06:52
[2020-03-18 08:00] VITALS: BP 116/80
[2020-03-18] MEDS ORDERED: Tubing IV Secondary IV ONE (08:23)
[2020-03-18] MEDS: Furosemide 40mg tab ORAL SCH (09:11)
[2020-03-18] MEDS: Azithromycin 250mg tab ORAL SCH (09:13)
[2020-03-18] MEDS: Levemir Flexpen SUBQ SCH (09:15)
--- NOTE | 2020-03-18 09:37 | Pulmonology Progress Note ---
Subjective ROS Limited/Unobtainable: No Interval Events: none major Constitutional: Reports: other - dosen't feel good HEENT: Repors: no symptoms Respiratory: Reports: no symptoms, other - mild intermittent cough Cardiovascular: Reports: no symptoms Gastrointestinal/Abdominal: Reports: no symptoms Genitourinary: Reports: no symptoms Neurologic: Reports: no symptoms Allergies: Coded Allergies: No Known Allergies (Unverified , 11/08/15) All Systems: reviewed and negative except above Subjective still having abd pain- stable Objective Last 24 Hour Vital Signs Date Time Temp Pulse Resp B/P (MAP) Pulse Ox O2 Delivery O2 Flow Rate FiO2 03/18/20 09:12 84 116/80 03/18/20 08:00 97.9 84 20 116/80 (92) 95 03/18/20 04:00 98.6 108 18 111/69 (83) 95 03/18/20 00:00 98.3 111 18 131/82 (98) 94 03/17/20 21:00 Nasal Cannula 3.0 03/17/20 20:00 97.8 99 20 123/74 (90) 99 03/17/20 16:00 98.4 71 20 144/82 (102) 95 03/17/20 12:00 97.3 85 20 141/54 (83) 95 Intake and Output 03/17/20 03/18/20 19:00 07:00 Intake Total 480 ml 320 ml Output Total 500 ml 700 ml Balance -20 ml -380 ml Intake Oral 480 ml 320 ml Output Urine Total 500 ml 700 ml # Voids 2 Objective 03/18/2020 alert, watching tv; saturating 95% on 3 lpm NC 03/17/2020 alert, watching tv in bed; saturating 94% on 3 lpm NC 03/16/2020 alert, laying in bed; saturating 93% on 3.5 lpm NC General Appearance: no acute distress HEENT: normocephalic Respiratory: chest wall non-tender Cardiovascular: normal peripheral pulses, normal rate, other - murmur appreciated Abdomen: normal bowel sounds Neurologic: other - tremor Laboratory Tests 03/17/20 11:36: POC Whole Blood Glucose 353H 03/17/20 11:45: White Blood Count 6.9, Red Blood Count 4.13L, Hemoglobin 12.5, Hematocrit 37.2, Mean Corpuscular Volume 90, Mean Corpuscular Hemoglobin 30.2, Mean Corpuscular Hemoglobin Concent 33.5, Red Cell Distribution Width 14.6, Platelet Count 201, Mean Platelet Volume 6.8, Neutrophils (%) (Auto) 76.0H, Lymphocytes (%) (Auto) 16.2L, Monocytes (%) (Auto) 7.4, Eosinophils (%) (Auto) 0.1, Basophils (%) (Auto) 0.4, Sodium Level 134L, Potassium Level 4.9, Chloride Level 98, Carbon Dioxide Level 31, Anion Gap 5, Blood Urea Nitrogen 33H, Creatinine 1.2, Estimat Glomerular Filtration Rate 44.5, Glucose Level 363H, Hemoglobin A1c 9.8H, Uric Acid 6.8, Calcium Level 8.4L, Phosphorus Level 3.9, Magnesium Level 1.9, Total Bilirubin 0.2, Gamma Glutamyl Transpeptidase 44, Aspartate Amino Transf (AST/SGOT) 50H, Alanine Aminotransferase (ALT/SGPT) 38, Alkaline Phosphatase 59, Lactate Dehydrogenase 290H, C-Reactive Protein, Quantitative < 0.4, Pro-B-Type Natriuretic Peptide 424H, Total Protein 7.0, Albumin 2.6L, Globulin 4.4, Albumin/Globulin Ratio 0.6L, Triglycerides Level 138, Cholesterol Level 132, LDL Cholesterol 62, HDL Cholesterol 40, Cholesterol/HDL Ratio 3.3, Thyroid Stimulating Hormone (TSH) 0.235L 03/17/20 18:11: POC Whole Blood Glucose 339H 03/17/20 22:21: POC Whole Blood Glucose 332H 03/18/20 06:53: POC Whole Blood Glucose 107H Current Medications Medications (Trade) Dose Ordered Sig/Tenzin Route PRN Reason Start Time Stop Time Status Last Admin Dose Admin Acetaminophen (Tylenol) 500 mg Q4H PRN ORAL Temp >100.5 03/14/20 16:15 04/13/20 16:14 03/16/20 05:11 Amlodipine Besylate (Norvasc) 5 mg DAILY ORAL 03/13/20 09:00 04/12/20 08:59 03/18/20 09:12 Azithromycin (Zithromax) 500 mg DAILY ORAL 03/13/20 16:30 03/20/20 16:29 03/18/20 09:13 Ceftriaxone Sodium 1 gm/ Dextrose 55 ml @ 110 mls/hr Q24H IVPB 03/14/20 18:00 03/21/20 17:59 03/17/20 18:08 Cetylpyridinium Chloride (Cepacol) 1 lozg Q6H PRN CARRIE sore throat 03/18/20 09:15 06/16/20 09:14 03/18/20 09:26 Dexamethasone (Decadron) 6 mg DAILY ORAL 03/17/20 09:00 03/25/20 09:01 03/18/20 09:11 Dextrose (Dextrose 50%) 25 ml Q30M PRN IV Hypoglycemia 03/12/20 16:45 06/10/20 16:44 Dextrose (Dextrose 50%) 50 ml Q30M PRN IV Hypoglycemia 03/12/20 16:45 06/10/20 16:44 Furosemide (Lasix) 40 mg DAILY ORAL 03/13/20 09:00 04/12/20 08:59 03/18/20 09:11 Ibuprofen (Advil) 400 mg Q6H PRN ORAL For Pain 03/12/20 16:45 04/11/20 16:44 03/13/20 06:12 Insulin Aspart (NovoLOG) BEFORE MEALS AND HS SUBQ 03/12/20 21:00 06/10/20 20:59 03/17/20 22:35 Insulin Aspart (NovoLOG) 8 units NOVOTIAC SUBQ 03/13/20 11:50 06/11/20 11:49 03/18/20 06:59 Insulin Detemir (Levemir) 30 units DAILY SUBQ 03/17/20 09:00 06/11/20 08:59 03/18/20 09:15 Ondansetron HCl (Zofran) 4 mg Q6H PRN IVP Nausea & Vomiting 03/12/20 16:45 04/11/20 16:44 Assessment/Plan Assessment/Plan 1. Anosmia and dysgeusia, concern high for COVID-19 pneumonia. - Serology confirmed COVID-19 - Saturating 95% on 3 lpm NC 2. Parkinson's. 3. Confirmed COVID 19 pneumonia - Cont Dexamethasone, zithromax, and rocephin per ID 4. Hep C serology positive - Elevated AST - Outpatient HCV eradication 5. Uncontrolled blood glucose - A1c 9.8 - glucose-lowering agents added per general MD - sugar improving The care for this patient was discussed with my supervising physician Seen and examined by Dr. Byrne as well Time spent for this case was approximately 31 minutes Tony Weathers Mar 18, 2020 09:37
[2020-03-18 12:00] VITALS: BP 129/80
--- NOTE | 2020-03-18 13:10 | Cardiology Report ---
ADDENDUM APPROVED REPORT EKG Measurement Heart [id number] AL [id number] <Conclusion> Normal sinus rhythm Possible Left atrial enlargement Nonspecific ST abnormality Subendocardial ischemia pattern Abnormal ECG
--- NOTE | 2020-03-18 13:27 | Cardiology Report ---
APPROVED REPORT EXAM: Two-dimensional and M-mode echocardiogram with Doppler and color Doppler. INDICATION Congestive Heart Failure M-Mode DIMENSIONS IVSd1.0 (0.7-1.1cm)Left Atrium (MM)3.8 (1.6-4.0cm) LVDd5.6 (3.5-5.6cm)Aortic Root3.3 (2.0-3.7cm) PWd1.0 (0.7-1.1cm)Aortic Cusp Exc.1.4 (1.5-2.0cm) IVSs1.9 cmEPSS0.6 (>1.0cm) LVDs3.4 (2.5-4.0cm) PWs1.8 cm <Conclusion> Normal left ventricular chamber size, systolic function and wall motion. Left ventricular ejection fraction estimated to be 60-65 %. Mild left ventricular hypertrophy. No evidence of pericardial effusion. Mild left atrial enlargement. Right cardiac chamber sizes are within normal limits. Focal aortic valve sclerosis with adequate cusp excursion. Thickened mitral valve leaflets with normal excursion. Mitral annulus and heavy posterior aortic root calcification. Pulmonic valve not well visualized. Normal tricuspid valve structure. IVC unobtainable. A color flow and spectral Doppler study was performed and revealed: No aortic regurgitation. Severe mitral regurgitation. Mitral diastolic velocities suggest reduced left ventricular relaxation c/w mild LV diastolic dysfunction (Grade I ). Trace tricuspid regurgitation. Tricuspid systolic velocities suggests peak right ventricular systolic pressure of 8 mmHg. No pulmonic regurgitation present.
[2020-03-18 16:00] VITALS: BP 119/74
--- NOTE | 2020-03-18 17:04 | General Progress Note ---
Subjective ROS Limited/Unobtainable: Yes Allergies: Coded Allergies: No Known Allergies (Unverified , 11/08/15) Objective Last 24 Hour Vital Signs Date Time Temp Pulse Resp B/P (MAP) Pulse Ox O2 Delivery O2 Flow Rate FiO2 03/18/20 16:00 97.8 85 20 119/74 (89) 98 03/18/20 12:00 98.2 97 18 129/80 (96) 97 03/18/20 09:12 84 116/80 03/18/20 09:00 Nasal Cannula 3.0 03/18/20 08:00 97.9 84 20 116/80 (92) 95 03/18/20 04:00 98.6 108 18 111/69 (83) 95 03/18/20 00:00 98.3 111 18 131/82 (98) 94 03/17/20 21:00 Nasal Cannula 3.0 03/17/20 20:00 97.8 99 20 123/74 (90) 99 Intake and Output 03/17/20 03/18/20 19:00 07:00 Intake Total 480 ml 320 ml Output Total 500 ml 700 ml Balance -20 ml -380 ml Intake Oral 480 ml 320 ml Output Urine Total 500 ml 700 ml # Voids 2 Laboratory Tests 03/17/20 18:11: POC Whole Blood Glucose 339H 03/17/20 22:21: POC Whole Blood Glucose 332H 03/18/20 06:53: POC Whole Blood Glucose 107H 03/18/20 11:46: POC Whole Blood Glucose [Pending] Height (Feet): 5 Height (Inches): 4.00 Weight (Pounds): 185 Assessment/Plan Problem List: (1) Pulmonary hypertension ICD Codes: I27.20 - Pulmonary hypertension, unspecified SNOMED: 46955701 (2) Cholelithiasis ICD Codes: K80.20 - Calculus of gallbladder without cholecystitis without obstruction SNOMED: 901877801 (3) Dehydration ICD Codes: E86.0 - Dehydration SNOMED: 73476881 (4) Fever ICD Codes: R50.9 - Fever, unspecified SNOMED: 115998358 (5) Abdominal pain ICD Codes: R10.9 - Unspecified abdominal pain SNOMED: 35969070 Qualifiers: Qualified Codes: R10.11 - Right upper quadrant pain (6) Severe sepsis ICD Codes: A41.9 - Sepsis, unspecified organism; R65.20 - Severe sepsis without septic shock SNOMED: 27824726 (7) MER (acute kidney injury) ICD Codes: N17.9 - Acute kidney failure, unspecified SNOMED: 3979457, 09065098 (8) Abnormal LFTs ICD Codes: R79.89 - Other specified abnormal findings of blood chemistry SNOMED: 357123060 (9) COPD exacerbation ICD Codes: J44.1 - Chronic obstructive pulmonary disease with (acute) exacerbation SNOMED: 541768377 (10) Anemia ICD Codes: D64.9 - Anemia, unspecified SNOMED: 152798653 (11) Type 2 diabetes mellitus ICD Codes: E11.9 - Type 2 diabetes mellitus without complications SNOMED: 34149492, 576245423 (12) Azotemia ICD Codes: R79.89 - Other specified abnormal findings of blood chemistry SNOMED: 487415015 Status: progressing Assessment/Plan: pulmonary htn afebrile no sob dm reviewed chart and labs sugar is improving covid positive elevated sugar improving Amelie Rios MD Mar 18, 2020 17:04
[2020-03-18] MEDS: cefTRIAXone 1 GM in D5W 55 ML IVPB SCH (17:10)
--- NOTE | 2020-03-18 18:29 | Cardiac Electrophysiology PN ---
Assessment/Plan Assessment/Plan 1. COVID PNA and loss of sense of smell and taste and diarrhea. Echo EF 65% and ruled out for DE . 2. History of hypertension. On Lasix 40 and Norvasc 5 daily 3. Uncontrolled diabetes, on metformin and insulin by Dr. Munoz. 4. History of contracted gallbladder, which is packed with stones by abdominal ultrasound. 5. History of COPD and pulmonary hypertension.On 3 liter NC 6. Hyperlipidemia. Subjective Subjective In Covid isolation on 3 liters Nasal Cannula . No new events Objective Last 24 Hour Vital Signs Date Time Temp Pulse Resp B/P (MAP) Pulse Ox O2 Delivery O2 Flow Rate FiO2 03/18/20 16:00 97.8 85 20 119/74 (89) 98 03/18/20 12:00 98.2 97 18 129/80 (96) 97 03/18/20 09:12 84 116/80 03/18/20 09:00 Nasal Cannula 3.0 03/18/20 08:00 97.9 84 20 116/80 (92) 95 03/18/20 04:00 98.6 108 18 111/69 (83) 95 03/18/20 00:00 98.3 111 18 131/82 (98) 94 03/17/20 21:00 Nasal Cannula 3.0 03/17/20 20:00 97.8 99 20 123/74 (90) 99 Intake and Output 03/17/20 03/18/20 18:59 06:59 Intake Total 480 ml 320 ml Output Total 500 ml 700 ml Balance -20 ml -380 ml Intake Oral 480 ml 320 ml Output Urine Total 500 ml 700 ml # Voids 2 Laboratory Tests Test 03/17/20 22:21 03/18/20 06:53 03/18/20 11:46 03/18/20 17:16 POC Whole Blood Glucose 332 MG/DL (74-106) H 107 MG/DL (74-106) H Pending Pending Objective HEAD AND NECK: No JVD. LUNGS: Coarse rhonchi. CARDIOVASCULAR: Regular S1 and S2 with no gallop or murmur. ABDOMEN: Soft. EXTREMITIES: No pitting edema. Noe Galdamez MD Mar 18, 2020 18:29
[2020-03-18 20:00] VITALS: BP 117/72
--- NOTE | 2020-03-18 23:08 | Surgery Progress Note ---
Surgery Progress Note Subjective Symptoms: improved, pain absent Objective Last 24 Hour Vital Signs Date Time Temp Pulse Resp B/P (MAP) Pulse Ox O2 Delivery O2 Flow Rate FiO2 03/18/20 21:00 Nasal Cannula 3.0 03/18/20 20:00 98.2 84 16 117/72 (87) 96 03/18/20 16:00 97.8 85 20 119/74 (89) 98 03/18/20 12:00 98.2 97 18 129/80 (96) 97 03/18/20 09:12 84 116/80 03/18/20 09:00 Nasal Cannula 3.0 03/18/20 08:00 97.9 84 20 116/80 (92) 95 03/18/20 04:00 98.6 108 18 111/69 (83) 95 03/18/20 00:00 98.3 111 18 131/82 (98) 94 I&O Intake and Output 03/17/20 03/18/20 19:00 07:00 Intake Total 480 ml 320 ml Output Total 500 ml 700 ml Balance -20 ml -380 ml Intake Oral 480 ml 320 ml Output Urine Total 500 ml 700 ml # Voids 2 Cardiovascular: RSR Respiratory: clear Abdomen: soft, non-tender, present bowel sounds, non-distended Extremities: no tenderness, no cyanosis Laboratory Tests Test 03/18/20 06:53 03/18/20 11:46 03/18/20 17:16 03/18/20 20:58 POC Whole Blood Glucose 107 MG/DL (74-106) H Pending Pending 277 MG/DL (74-106) H Plan Problems: (1) Fever (2) Hypoalbuminemia (3) Abnormal LFTs (4) Elevated CEA (5) Vaginal discharge (6) Vomiting and diarrhea (7) COPD exacerbation (8) Dehydration (9) Constipation (10) Cholelithiasis (11) Severe sepsis (12) Altered level of consciousness (13) MER (acute kidney injury) (14) Pulmonary hypertension (15) Renal insufficiency (16) Hyperglycemia (17) Gall stones (18) Nausea & vomiting (19) Elevated lactic acid level (20) Abdominal pain Assessment & Plan: 69F with acute abdominal pain. likely biliary colic? resolved now does not seem likely cholecystitis as resolved quickly US noted. lft's mild elevated improving lip wnl pain resolving no n/v US noted lab snoted okay for diet cont iv fluids cont abx will follow with serial exams Liver: Liver measures 14.4 cm. No intrahepatic bile duct dilation. Gallbladder: Stones and sludge in the gallbladder. Nonspecific mild prominence of the gallbladder wall which appears to contain calcifications. No significant pericholecystic fluid. Negative sonographic Vargas's sign. Common bile duct: Normal common bile duct measuring 3.3 mm. No stones. No dilation. Pancreas: Pancreas is not well-visualized due to overlying bowel gas. Kidneys: Right kidney measures 8.8 cm in length. No hydronephrosis or stone. Left kidney measures 9.6 cm in length. No hydronephrosis. Nonobstructing left renal stones measuring up to 10 mm. Spleen: Spleen measures 8.8 cm. No focal lesion. Aorta: Unremarkable. No aneurysm. Inferior vena cava: Unremarkable. Free fluid: No ascites. IMPRESSION: 1. Stones and sludge in the gallbladder. Nonspecific mild prominence of the gallbladder wall which appears to contain calcifications. No significant pericholecystic fluid. Negative sonographic Vargas's sign. 2. Left renal stones. (21) UTI (urinary tract infection) (22) Encephalopathy (23) Anemia (24) Hyperlipidemia associated with type 2 diabetes mellitus (25) Type 2 diabetes mellitus (26) Azotemia Oliver Last Mar 18, 2020 23:08
[2020-03-19] VITALS: BP 120/70
--- NOTE | 2020-03-19 03:00 | Consultation ---
DATE OF CONSULTATION: 03/19/2020 ENDOCRINOLOGY CONSULTATION CONSULTING PHYSICIAN: Hitesh Thomas M.D. REFERRING PHYSICIAN: Amelie Rios M.D. REASON FOR CONSULTATION: I was asked to see this 69-year-old female by Dr. Amelie Rios in endocrinology consultation for evaluation and management of type 2 diabetes mellitus, out of control. COVID-positive pneumonia and was found to be hyperglycemic. The patient was placed on . PHYSICAL EXAMINATION: GENERAL: The patient is in no acute distress. VITAL SIGNS: Blood pressure 170/72, pulse 74, respiratory rate 18, temperature . HEAD AND NECK: Unremarkable. No jugular venous distention. LUNGS: Clear. HEART: Distant. ABDOMEN: Soft. Bowel sounds present. EXTREMITIES: No edema. NEUROLOGIC: Cranial nerves II through XII are grossly intact with toes downgoing to plantar stimulation. . ASSESSMENT: 1. Diabetes mellitus type 2, out of control. 2. COVID-positive pneumonia. PLAN: . Hitesh Thomas M.D. DR: MONTRELL JOB#: [id number] CC:
[2020-03-19 04:00] VITALS: BP 123/69
[2020-03-19] MEDS: NovoLOG Insulin Flexpen SUBQ SCH ×7 (06:17→21:32)
--- NOTE | 2020-03-19 08:41 | General Progress Note ---
Subjective ROS Limited/Unobtainable: No Allergies: Coded Allergies: No Known Allergies (Unverified , 11/08/15) Objective Last 24 Hour Vital Signs Date Time Temp Pulse Resp B/P (MAP) Pulse Ox O2 Delivery O2 Flow Rate FiO2 03/19/20 04:00 98.2 80 16 123/69 (87) 96 03/19/20 00:00 98.4 77 16 120/70 (87) 96 03/18/20 21:00 Nasal Cannula 3.0 03/18/20 20:00 98.2 84 16 117/72 (87) 96 03/18/20 16:00 97.8 85 20 119/74 (89) 98 03/18/20 12:00 98.2 97 18 129/80 (96) 97 03/18/20 09:12 84 116/80 03/18/20 09:00 Nasal Cannula 3.0 Intake and Output 03/18/20 03/19/20 19:00 07:00 Intake Total 600 ml Output Total 600 ml 900 ml Balance 0 ml -900 ml Intake Oral 600 ml Output Urine Total 600 ml 900 ml # Voids 1 Laboratory Tests 03/18/20 11:46: POC Whole Blood Glucose [Pending] 03/18/20 17:16: POC Whole Blood Glucose [Pending] 03/18/20 20:58: POC Whole Blood Glucose 277H 03/19/20 06:14: POC Whole Blood Glucose 134H Height (Feet): 5 Height (Inches): 4.00 Weight (Pounds): 185 General Appearance: no apparent distress EENT: normal ENT inspection Neck: supple Cardiovascular: normal rate Respiratory/Chest: decreased breath sounds Abdomen: hypoactive bowel sounds Extremities: non-tender Assessment/Plan Status: progressing Assessment/Plan: Assessment/Plan Status: progressing Assessment/Plan: Assessment - vague, mild abd pain - improved - abnormal LFT- Hepatitis C (+) - cholelithiasis - DM - COVID>> positive Recommendations - po as tolerated - repeat labs-fu ID and pulm recs - Outpatient HCV eradication Isaias Tamez MD Mar 19, 2020 08:41
[2020-03-19 08:55] VITALS: BP_SYST 122; BP_SYST 132; BP_DIAS 83; BP_DIAS 88
[2020-03-19] MEDS: Azithromycin 250mg tab ORAL SCH (09:00)
[2020-03-19] MEDS: Furosemide 40mg tab ORAL SCH (09:01)
[2020-03-19] MEDS: Levemir Flexpen SUBQ SCH (09:05)
[2020-03-19] MEDS ORDERED: NS 500ML ONE (09:40)
--- NOTE | 2020-03-19 10:15 | Pulmonology Progress Note ---
Subjective ROS Limited/Unobtainable: No Interval Events: none major Constitutional: Reports: other - dosen't feel good HEENT: Repors: no symptoms Respiratory: Reports: no symptoms, other - mild intermittent cough Cardiovascular: Reports: no symptoms Gastrointestinal/Abdominal: Reports: no symptoms Genitourinary: Reports: no symptoms Neurologic: Reports: no symptoms Allergies: Coded Allergies: No Known Allergies (Unverified , 11/08/15) All Systems: reviewed and negative except above Subjective still having abd pain- stable Objective Last 24 Hour Vital Signs Date Time Temp Pulse Resp B/P (MAP) Pulse Ox O2 Delivery O2 Flow Rate FiO2 03/19/20 09:00 88 132/83 03/19/20 08:55 96.8 20 20 132/83 (99) 92 03/19/20 04:00 98.2 80 16 123/69 (87) 96 03/19/20 00:00 98.4 77 16 120/70 (87) 96 03/18/20 21:00 Nasal Cannula 3.0 03/18/20 20:00 98.2 84 16 117/72 (87) 96 03/18/20 16:00 97.8 85 20 119/74 (89) 98 03/18/20 12:00 98.2 97 18 129/80 (96) 97 Intake and Output 03/18/20 03/19/20 19:00 07:00 Intake Total 600 ml Output Total 600 ml 900 ml Balance 0 ml -900 ml Intake Oral 600 ml Output Urine Total 600 ml 900 ml # Voids 1 Objective 03/19/2020 alert, watching tv; saturating 96% on 3 lpm NC 03/18/2020 alert, watching tv; saturating 95% on 3 lpm NC 03/17/2020 alert, watching tv in bed; saturating 94% on 3 lpm NC 03/16/2020 alert, laying in bed; saturating 93% on 3.5 lpm NC General Appearance: no acute distress HEENT: normocephalic Respiratory: chest wall non-tender Cardiovascular: normal peripheral pulses, normal rate, other - murmur appreciated Abdomen: normal bowel sounds Neurologic: other - tremor Laboratory Tests 03/18/20 11:46: POC Whole Blood Glucose [Pending] 03/18/20 17:16: POC Whole Blood Glucose [Pending] 03/18/20 20:58: POC Whole Blood Glucose 277H 03/19/20 06:14: POC Whole Blood Glucose 134H Current Medications Medications (Trade) Dose Ordered Sig/Tenzin Route PRN Reason Start Time Stop Time Status Last Admin Dose Admin Acetaminophen (Tylenol) 500 mg Q4H PRN ORAL Temp >100.5 03/14/20 16:15 04/13/20 16:14 03/16/20 05:11 Amlodipine Besylate (Norvasc) 5 mg DAILY ORAL 03/13/20 09:00 04/12/20 08:59 03/19/20 09:00 Azithromycin (Zithromax) 500 mg DAILY ORAL 03/13/20 16:30 03/20/20 16:29 03/19/20 09:00 Ceftriaxone Sodium 1 gm/ Dextrose 55 ml @ 110 mls/hr Q24H IVPB 03/14/20 18:00 03/21/20 17:59 03/18/20 17:10 Cetylpyridinium Chloride (Cepacol) 1 lozg Q6H PRN CARRIE sore throat 03/18/20 09:15 06/16/20 09:14 03/18/20 09:26 Dexamethasone (Decadron) 6 mg DAILY ORAL 03/17/20 09:00 03/25/20 09:01 03/19/20 09:01 Dextrose (Dextrose 50%) 25 ml Q30M PRN IV Hypoglycemia 03/12/20 16:45 06/10/20 16:44 Dextrose (Dextrose 50%) 50 ml Q30M PRN IV Hypoglycemia 03/12/20 16:45 06/10/20 16:44 Furosemide (Lasix) 40 mg DAILY ORAL 03/13/20 09:00 04/12/20 08:59 03/19/20 09:01 Ibuprofen (Advil) 400 mg Q6H PRN ORAL For Pain 03/12/20 16:45 04/11/20 16:44 03/13/20 06:12 Insulin Aspart (NovoLOG) BEFORE MEALS AND HS SUBQ 03/12/20 21:00 06/10/20 20:59 03/18/20 21:01 Insulin Aspart (NovoLOG) 10 units NOVOTIAC SUBQ 03/19/20 06:30 06/11/20 11:49 Insulin Detemir (Levemir) 30 units DAILY SUBQ 03/17/20 09:00 06/11/20 08:59 03/19/20 09:05 Ondansetron HCl (Zofran) 4 mg Q6H PRN IVP Nausea & Vomiting 03/12/20 16:45 04/11/20 16:44 Assessment/Plan Assessment/Plan 1. Anosmia and dysgeusia, concern high for COVID-19 pneumonia. - Serology confirmed COVID-19 - Saturating 96% on 3 lpm NC 2. Parkinson's. 3. Confirmed COVID 19 pneumonia - Cont Dexamethasone, zithromax, and rocephin per ID 4. Hep C serology positive - Elevated AST 101 -> 50 - Outpatient HCV eradication 5. Uncontrolled blood glucose - A1c 9.8 - glucose-lowering agents added per general MD - sugar improving The care for this patient was discussed with my supervising physician Seen and examined by Dr. Byrne as well The history of Vesna Fan has been reviewed and management options for her have been examined and discussed by Cezar Byrne. I have personally examined and interviewed the patient. Time spent for this case was approximately 31 minutes Tony Weathers Mar 19, 2020 10:15 Cezar Byrne MD Mar 19, 2020 16:55
[2020-03-19 12:00] VITALS: BP 128/79
--- NOTE | 2020-03-19 15:52 | Infectious Diseases Prog Note ---
Assessment/Plan Assessment/Plan IMPRESSION: COVID19 disease, COPD, may have mild exacerbation. MRSA carrier Diabetes mellitus with hyperglycemia, Pulmonary hypertension, Diastolic CHF, Parkinson disease, Elevated transaminase, anemia. RECOMMENDATION: Continue Zithromax & Rocephin. Continue Dexamethasone Subjective ROS Limited/Unobtainable: Yes Constitutional: Denies: fever Allergies: Coded Allergies: No Known Allergies (Unverified , 11/08/15) Objective Last 24 Hour Vital Signs Date Time Temp Pulse Resp B/P (MAP) Pulse Ox O2 Delivery O2 Flow Rate FiO2 03/19/20 12:00 97.2 85 20 128/79 (95) 95 03/19/20 09:00 88 132/83 03/19/20 09:00 Nasal Cannula 3.0 03/19/20 08:55 96.8 88 20 132/83 (99) 92 03/19/20 04:00 98.2 80 16 123/69 (87) 96 03/19/20 00:00 98.4 77 16 120/70 (87) 96 03/18/20 21:00 Nasal Cannula 3.0 03/18/20 20:00 98.2 84 16 117/72 (87) 96 03/18/20 16:00 97.8 85 20 119/74 (89) 98 Height (Feet): 5 Height (Inches): 4.00 Weight (Pounds): 185 General Appearance: no acute distress HEENT: mucous membranes moist Respiratory/Chest: other - oxygen by nasal cannula Cardiovascular: normal rate Abdomen: soft, non tender Extremities: no edema Neurologic/Psychiatric: other - sleeping Laboratory Tests Test 03/18/20 17:16 03/18/20 20:58 03/19/20 06:14 03/19/20 11:56 POC Whole Blood Glucose Pending 277 MG/DL (74-106) H 134 MG/DL (74-106) H 243 MG/DL (74-106) H Test 03/19/20 12:55 Hemoglobin A1c 9.7 % (4.3-6.0) H Current Medications Medications (Trade) Dose Ordered Sig/Tenzin Route PRN Reason Start Time Stop Time Status Last Admin Dose Admin Acetaminophen (Tylenol) 500 mg Q4H PRN ORAL Temp >100.5 03/14/20 16:15 04/13/20 16:14 03/16/20 05:11 Amlodipine Besylate (Norvasc) 5 mg DAILY ORAL 03/13/20 09:00 04/12/20 08:59 03/19/20 09:00 Azithromycin (Zithromax) 500 mg DAILY ORAL 03/13/20 16:30 03/21/20 16:29 03/19/20 09:00 Ceftriaxone Sodium 1 gm/ Dextrose 55 ml @ 110 mls/hr Q24H IVPB 03/14/20 18:00 03/21/20 17:59 03/18/20 17:10 Cetylpyridinium Chloride (Cepacol) 1 lozg Q6H PRN CARRIE sore throat 03/18/20 09:15 06/16/20 09:14 03/18/20 09:26 Dexamethasone (Decadron) 6 mg DAILY ORAL 03/17/20 09:00 03/25/20 09:01 03/19/20 09:01 Dextrose (Dextrose 50%) 25 ml Q30M PRN IV Hypoglycemia 03/12/20 16:45 06/10/20 16:44 Dextrose (Dextrose 50%) 50 ml Q30M PRN IV Hypoglycemia 03/12/20 16:45 06/10/20 16:44 Furosemide (Lasix) 40 mg DAILY ORAL 03/13/20 09:00 04/12/20 08:59 03/19/20 09:01 Ibuprofen (Advil) 400 mg Q6H PRN ORAL For Pain 03/12/20 16:45 04/11/20 16:44 03/13/20 06:12 Insulin Aspart (NovoLOG) BEFORE MEALS AND HS SUBQ 03/12/20 21:00 06/10/20 20:59 03/19/20 12:47 Insulin Aspart (NovoLOG) 10 units NOVOTIAC SUBQ 03/19/20 06:30 06/11/20 11:49 03/19/20 12:48 Insulin Detemir (Levemir) 30 units DAILY SUBQ 03/17/20 09:00 06/11/20 08:59 03/19/20 09:05 Ondansetron HCl (Zofran) 4 mg Q6H PRN IVP Nausea & Vomiting 03/12/20 16:45 04/11/20 16:44 Rogelio Martinez MD Mar 19, 2020 15:52
[2020-03-19 16:00] VITALS: BP 116/76
[2020-03-19] MEDS: cefTRIAXone 1 GM in D5W 55 ML IVPB SCH (17:30)
--- NOTE | 2020-03-19 18:08 | Surgery Progress Note ---
Surgery Progress Note Subjective Symptoms: tolerating diet, passing flatus, BM Objective Last 24 Hour Vital Signs Date Time Temp Pulse Resp B/P (MAP) Pulse Ox O2 Delivery O2 Flow Rate FiO2 03/19/20 16:00 97.5 91 20 116/76 (89) 95 03/19/20 12:00 97.2 85 20 128/79 (95) 95 03/19/20 09:00 88 132/83 03/19/20 09:00 Nasal Cannula 3.0 03/19/20 08:55 96.8 88 20 132/83 (99) 92 03/19/20 04:00 98.2 80 16 123/69 (87) 96 03/19/20 00:00 98.4 77 16 120/70 (87) 96 03/18/20 21:00 Nasal Cannula 3.0 03/18/20 20:00 98.2 84 16 117/72 (87) 96 I&O Intake and Output 03/18/20 03/19/20 18:59 06:59 Intake Total 600 ml Output Total 600 ml 900 ml Balance 0 ml -900 ml Intake Oral 600 ml Output Urine Total 600 ml 900 ml # Voids 1 Cardiovascular: RSR Respiratory: clear Abdomen: soft, non-tender, present bowel sounds Extremities: no edema, no tenderness, no cyanosis Laboratory Tests Test 03/18/20 20:58 03/19/20 06:14 03/19/20 11:56 03/19/20 12:55 POC Whole Blood Glucose 277 MG/DL (74-106) H 134 MG/DL (74-106) H 243 MG/DL (74-106) H Hemoglobin A1c 9.7 % (4.3-6.0) H Test 03/19/20 17:35 POC Whole Blood Glucose 190 MG/DL (74-106) H Plan Problems: (1) Fever (2) Hypoalbuminemia (3) Abnormal LFTs (4) Elevated CEA (5) Vaginal discharge (6) Vomiting and diarrhea (7) COPD exacerbation (8) Dehydration (9) Constipation (10) Cholelithiasis (11) Severe sepsis (12) Altered level of consciousness (13) MER (acute kidney injury) (14) Pulmonary hypertension (15) Renal insufficiency (16) Hyperglycemia (17) Gall stones (18) Nausea & vomiting (19) Elevated lactic acid level (20) Abdominal pain Assessment & Plan: 69F with acute abdominal pain. likely biliary colic? resolved now does not seem likely cholecystitis as resolved quickly US noted. lft's mild elevated improving lip wnl pain resolving no n/v US noted lab snoted okay for diet cont iv fluids cont abx will follow with serial exams Liver: Liver measures 14.4 cm. No intrahepatic bile duct dilation. Gallbladder: Stones and sludge in the gallbladder. Nonspecific mild prominence of the gallbladder wall which appears to contain calcifications. No significant pericholecystic fluid. Negative sonographic Vargas's sign. Common bile duct: Normal common bile duct measuring 3.3 mm. No stones. No dilation. Pancreas: Pancreas is not well-visualized due to overlying bowel gas. Kidneys: Right kidney measures 8.8 cm in length. No hydronephrosis or stone. Left kidney measures 9.6 cm in length. No hydronephrosis. Nonobstructing left renal stones measuring up to 10 mm. Spleen: Spleen measures 8.8 cm. No focal lesion. Aorta: Unremarkable. No aneurysm. Inferior vena cava: Unremarkable. Free fluid: No ascites. IMPRESSION: 1. Stones and sludge in the gallbladder. Nonspecific mild prominence of the gallbladder wall which appears to contain calcifications. No significant pericholecystic fluid. Negative sonographic Vargas's sign. 2. Left renal stones. (21) UTI (urinary tract infection) (22) Encephalopathy (23) Anemia (24) Hyperlipidemia associated with type 2 diabetes mellitus (25) Type 2 diabetes mellitus (26) Azotemia Oliver Last Mar 19, 2020 18:08
[2020-03-19 20:00] VITALS: BP 122/78
--- NOTE | 2020-03-19 20:41 | Cardiac Electrophysiology PN ---
Assessment/Plan Assessment/Plan 1. COVID PNA and loss of sense of smell and taste. Echo EF 65% and ruled out for DC . 2. History of hypertension. On Lasix 40 and Norvasc 5 daily 3. Uncontrolled diabetes, on metformin and insulin by Dr. Munoz. 4. History of contracted gallbladder, which is packed with stones by abdominal ultrasound. 5. History of COPD and pulmonary hypertension.On 3 liter NC 6. Hyperlipidemia. Subjective Subjective In Covid isolation on 3 liters Nasal Cannula . No new events Objective Last 24 Hour Vital Signs Date Time Temp Pulse Resp B/P (MAP) Pulse Ox O2 Delivery O2 Flow Rate FiO2 03/19/20 20:11 Nasal Cannula 3.0 03/19/20 16:00 97.5 91 20 116/76 (89) 95 03/19/20 12:00 97.2 85 20 128/79 (95) 95 03/19/20 09:00 88 132/83 03/19/20 09:00 Nasal Cannula 3.0 03/19/20 08:55 96.8 88 20 132/83 (99) 92 03/19/20 04:00 98.2 80 16 123/69 (87) 96 03/19/20 00:00 98.4 77 16 120/70 (87) 96 03/18/20 21:00 Nasal Cannula 3.0 Intake and Output 03/18/20 03/19/20 19:00 07:00 Intake Total 600 ml Output Total 600 ml 900 ml Balance 0 ml -900 ml Intake Oral 600 ml Output Urine Total 600 ml 900 ml # Voids 1 Laboratory Tests Test 03/18/20 20:58 03/19/20 06:14 03/19/20 11:56 03/19/20 12:55 POC Whole Blood Glucose 277 MG/DL (74-106) H 134 MG/DL (74-106) H 243 MG/DL (74-106) H Hemoglobin A1c 9.7 % (4.3-6.0) H Test 03/19/20 17:35 POC Whole Blood Glucose 190 MG/DL (74-106) H Objective HEAD AND NECK: No JVD. LUNGS: Coarse rhonchi. CARDIOVASCULAR: Regular S1 and S2 with no gallop or murmur. ABDOMEN: Soft. EXTREMITIES: No pitting edema. Noe Galdamez MD Mar 19, 2020 20:41
--- NOTE | 2020-03-19 21:34 | General Progress Note ---
Subjective ROS Limited/Unobtainable: Yes Allergies: Coded Allergies: No Known Allergies (Unverified , 11/08/15) Objective Last 24 Hour Vital Signs Date Time Temp Pulse Resp B/P (MAP) Pulse Ox O2 Delivery O2 Flow Rate FiO2 03/19/20 20:11 Nasal Cannula 3.0 03/19/20 16:00 97.5 91 20 116/76 (89) 95 03/19/20 12:00 97.2 85 20 128/79 (95) 95 03/19/20 09:00 88 132/83 03/19/20 09:00 Nasal Cannula 3.0 03/19/20 08:55 96.8 88 20 132/83 (99) 92 03/19/20 04:00 98.2 80 16 123/69 (87) 96 03/19/20 00:00 98.4 77 16 120/70 (87) 96 Intake and Output 03/18/20 03/19/20 19:00 07:00 Intake Total 600 ml Output Total 600 ml 900 ml Balance 0 ml -900 ml Intake Oral 600 ml Output Urine Total 600 ml 900 ml # Voids 1 Laboratory Tests 03/19/20 06:14: POC Whole Blood Glucose 134H 03/19/20 11:56: POC Whole Blood Glucose 243H 03/19/20 12:55: Hemoglobin A1c 9.7H 03/19/20 17:35: POC Whole Blood Glucose 190H Height (Feet): 5 Height (Inches): 4.00 Weight (Pounds): 185 Assessment/Plan Problem List: (1) Pulmonary hypertension ICD Codes: I27.20 - Pulmonary hypertension, unspecified SNOMED: 85612268 (2) Cholelithiasis ICD Codes: K80.20 - Calculus of gallbladder without cholecystitis without obstruction SNOMED: 895042446 (3) Dehydration ICD Codes: E86.0 - Dehydration SNOMED: 03286777 (4) Fever ICD Codes: R50.9 - Fever, unspecified SNOMED: 008222029 (5) Abdominal pain ICD Codes: R10.9 - Unspecified abdominal pain SNOMED: 92064662 Qualifiers: Qualified Codes: R10.11 - Right upper quadrant pain (6) Severe sepsis ICD Codes: A41.9 - Sepsis, unspecified organism; R65.20 - Severe sepsis without septic shock SNOMED: 32034532 (7) MER (acute kidney injury) ICD Codes: N17.9 - Acute kidney failure, unspecified SNOMED: 8874120, 40907737 (8) Abnormal LFTs ICD Codes: R79.89 - Other specified abnormal findings of blood chemistry SNOMED: 864147360 (9) COPD exacerbation ICD Codes: J44.1 - Chronic obstructive pulmonary disease with (acute) exacerbation SNOMED: 394122970 (10) Anemia ICD Codes: D64.9 - Anemia, unspecified SNOMED: 072119389 (11) Type 2 diabetes mellitus ICD Codes: E11.9 - Type 2 diabetes mellitus without complications SNOMED: 06276359, 730944897 (12) Azotemia ICD Codes: R79.89 - Other specified abnormal findings of blood chemistry SNOMED: 430319051 Status: progressing Assessment/Plan: pulmonary htn covid positive pna prn supportive rx psychosis reviewed chart and labs elevated sugar improving Amelie Rios MD Mar 19, 2020 21:34
[2020-03-20] VITALS: BP 134/75
[2020-03-20 04:00] VITALS: BP 129/76
[2020-03-20] MEDS: NovoLOG Insulin Flexpen SUBQ SCH ×6 (05:35→16:56)
--- NOTE | 2020-03-20 06:16 | General Progress Note ---
Subjective Allergies: Coded Allergies: No Known Allergies (Unverified , 11/08/15) Subjective events noted in COVID isolation glucose values are stable Item Value Date Time Bedside Blood Glucose 96 mg/dl 03/20/20 0546 Bedside Blood Glucose 174 mg/dl H 03/19/20 2132 Bedside Blood Glucose 190 mg/dl H 03/19/20 1742 Bedside Blood Glucose 243 mg/dl H 03/19/20 1248 Bedside Blood Glucose 134 mg/dl H 03/19/20 0905 Objective Last 24 Hour Vital Signs Date Time Temp Pulse Resp B/P (MAP) Pulse Ox O2 Delivery O2 Flow Rate FiO2 03/20/20 04:00 97.8 79 20 129/76 (93) 96 03/20/20 00:00 97.5 84 18 134/75 (94) 95 03/19/20 20:11 Nasal Cannula 3.0 03/19/20 20:00 97.2 88 19 122/78 (93) 96 03/19/20 16:00 97.5 91 20 116/76 (89) 95 03/19/20 12:00 97.2 85 20 128/79 (95) 95 03/19/20 09:00 88 132/83 03/19/20 09:00 Nasal Cannula 3.0 03/19/20 08:55 96.8 88 20 132/83 (99) 92 Intake and Output 03/19/20 03/20/20 18:59 06:59 Intake Total 1015 ml Output Total 700 ml Balance 315 ml Intake Oral 960 ml IV Total 55 ml Output Urine Total 700 ml # Voids 1 # Bowel Movements 3 1 Laboratory Tests 03/19/20 11:56: POC Whole Blood Glucose 243H 03/19/20 12:55: Hemoglobin A1c 9.7H 03/19/20 17:35: POC Whole Blood Glucose 190H Height (Feet): 5 Height (Inches): 4.00 Weight (Pounds): 185 Objective Current Medications Medications (Trade) Dose Ordered Sig/Tenzin Route PRN Reason Start Time Stop Time Status Last Admin Dose Admin Acetaminophen (Tylenol) 500 mg Q4H PRN ORAL Temp >100.5 03/14/20 16:15 04/13/20 16:14 03/16/20 05:11 Amlodipine Besylate (Norvasc) 5 mg DAILY ORAL 03/13/20 09:00 04/12/20 08:59 03/19/20 09:00 Azithromycin (Zithromax) 500 mg DAILY ORAL 03/13/20 16:30 03/21/20 16:29 03/19/20 09:00 Ceftriaxone Sodium 1 gm/ Dextrose 55 ml @ 110 mls/hr Q24H IVPB 03/14/20 18:00 03/21/20 17:59 03/19/20 17:30 Cetylpyridinium Chloride (Cepacol) 1 lozg Q6H PRN CARRIE sore throat 03/18/20 09:15 06/16/20 09:14 03/18/20 09:26 Dexamethasone (Decadron) 6 mg DAILY ORAL 03/17/20 09:00 03/25/20 09:01 03/19/20 09:01 Dextrose (Dextrose 50%) 25 ml Q30M PRN IV Hypoglycemia 03/12/20 16:45 06/10/20 16:44 Dextrose (Dextrose 50%) 50 ml Q30M PRN IV Hypoglycemia 03/12/20 16:45 06/10/20 16:44 Furosemide (Lasix) 40 mg DAILY ORAL 03/13/20 09:00 04/12/20 08:59 03/19/20 09:01 Ibuprofen (Advil) 400 mg Q6H PRN ORAL For Pain 03/12/20 16:45 04/11/20 16:44 03/13/20 06:12 Insulin Aspart (NovoLOG) BEFORE MEALS AND HS SUBQ 03/12/20 21:00 06/10/20 20:59 03/19/20 21:32 Insulin Aspart (NovoLOG) 10 units NOVOTIAC SUBQ 03/19/20 06:30 06/11/20 11:49 03/19/20 17:42 Insulin Detemir (Levemir) 30 units DAILY SUBQ 03/17/20 09:00 06/11/20 08:59 03/19/20 09:05 Ondansetron HCl (Zofran) 4 mg Q6H PRN IVP Nausea & Vomiting 03/12/20 16:45 04/11/20 16:44 Assessment/Plan Problem List: (1) Type 2 diabetes mellitus ICD Codes: E11.9 - Type 2 diabetes mellitus without complications SNOMED: 85747566, 595770629 (2) Hyperglycemia ICD Codes: R73.9 - Hyperglycemia, unspecified SNOMED: 02576710 (3) Renal insufficiency ICD Codes: N28.9 - Disorder of kidney and ureter, unspecified SNOMED: 388981677, 735482683 (4) Elevated lactic acid level ICD Codes: R79.89 - Other specified abnormal findings of blood chemistry SNOMED: 3792857 Status: progressing Assessment/Plan: continue Levemir 30 units qam continue Novolog 10 units ac tid + SSI hypoglycemia protocol in order Marcin Munoz MD Mar 20, 2020 06:16
[2020-03-20 07:32] LABS: ALBUMIN 2.6 G/DL (3.4-5.0); ALBUMIN/GLOBULIN RATIO 0.6 (1.0-2.7); BILIRUBIN,TOTAL 0.1 MG/DL (0.2-1.0); CALCIUM 8.7 MG/DL (8.5-10.1); POTASSIUM 4.5 MMOL/L (3.5-5.1)
[2020-03-20 07:43] LABS: BASOPHILS % (AUTO) 0.9 % (0.0-2.0); HEMATOCRIT 34.7 % (37.0-47.0); HEMOGLOBIN 12.3 G/DL (12.0-16.0); LYMPHOCYTES % (AUTO) 18.8 % (20.0-45.0); MEAN CORPUSCULAR VOLUME 87 FL (80-99); MONOCYTES % (AUTO) 7.3 % (1.0-10.0); PLATELET COUNT 229 K/UL (150-450); RED BLOOD COUNT 4.01 M/UL (4.20-5.40); RED CELL DISTRIBUTION WIDTH 14.1 % (11.6-14.8); WHITE BLOOD COUNT 7.5 K/UL (4.8-10.8)
[2020-03-20 08:00] VITALS: BP 159/91
--- NOTE | 2020-03-20 08:57 | Pulmonology Progress Note ---
Subjective ROS Limited/Unobtainable: Yes Interval Events: none major Constitutional: Reports: other - feeling better than yesterday HEENT: Repors: no symptoms Respiratory: Reports: no symptoms, other - mild intermittent cough Cardiovascular: Reports: no symptoms Genitourinary: Reports: no symptoms Neurologic: Reports: no symptoms Allergies: Coded Allergies: No Known Allergies (Unverified , 11/08/15) All Systems: reviewed and negative except above Subjective still having abd pain- stable Objective Last 24 Hour Vital Signs Date Time Temp Pulse Resp B/P (MAP) Pulse Ox O2 Delivery O2 Flow Rate FiO2 03/20/20 04:00 97.8 79 20 129/76 (93) 96 03/20/20 00:00 97.5 84 18 134/75 (94) 95 03/19/20 20:11 Nasal Cannula 3.0 03/19/20 20:00 97.2 88 19 122/78 (93) 96 03/19/20 16:00 97.5 91 20 116/76 (89) 95 03/19/20 12:00 97.2 85 20 128/79 (95) 95 03/19/20 09:00 88 132/83 03/19/20 09:00 Nasal Cannula 3.0 Intake and Output 03/19/20 03/20/20 19:00 07:00 Intake Total 1015 ml 320 ml Output Total 700 ml Balance 315 ml 320 ml Intake Oral 960 ml 320 ml IV Total 55 ml Output Urine Total 700 ml # Voids 1 2 # Bowel Movements 3 1 Objective 03/20/2020 eating breakfast in bed; saturating well on low flow oxygen 03/19/2020 alert, watching tv; saturating 96% on 3 lpm NC 03/18/2020 alert, watching tv; saturating 95% on 3 lpm NC 03/17/2020 alert, watching tv in bed; saturating 94% on 3 lpm NC 03/16/2020 alert, laying in bed; saturating 93% on 3.5 lpm NC General Appearance: no acute distress HEENT: normocephalic Respiratory: chest wall non-tender Cardiovascular: normal peripheral pulses, normal rate, other - murmur appreciated Abdomen: normal bowel sounds Genitourinary: other - female external catheter Neurologic: other - tremor Laboratory Tests 03/19/20 11:56: POC Whole Blood Glucose 243H 03/19/20 12:55: Hemoglobin A1c 9.7H 12/6/20 17:35: POC Whole Blood Glucose 190H 03/20/20 03:30: White Blood Count 7.5, Red Blood Count 4.01L, Hemoglobin 12.3, Hematocrit 34.7L, Mean Corpuscular Volume 87, Mean Corpuscular Hemoglobin 30.7, Mean Corpuscular Hemoglobin Concent 35.5, Red Cell Distribution Width 14.1, Platelet Count 229, Mean Platelet Volume 6.7, Neutrophils (%) (Auto) 73.0, Lymphocytes (%) (Auto) 18.8L, Monocytes (%) (Auto) 7.3, Eosinophils (%) (Auto) 0.0, Basophils (%) (Auto) 0.9, Sodium Level 138, Potassium Level 4.5, Chloride Level 104, Carbon Dioxide Level 28, Anion Gap 6, Blood Urea Nitrogen 39H, Creatinine 1.0, Estimat Glomerular Filtration Rate 55.0, Glucose Level 79, Calcium Level 8.7, Total Bilirubin 0.1L, Aspartate Amino Transf (AST/SGOT) 54H, Alanine Aminotransferase (ALT/SGPT) 45, Alkaline Phosphatase 54, Total Protein 7.2, Albumin 2.6L, Globulin 4.6, Albumin/Globulin Ratio 0.6L Current Medications Medications (Trade) Dose Ordered Sig/Tenzin Route PRN Reason Start Time Stop Time Status Last Admin Dose Admin Acetaminophen (Tylenol) 500 mg Q4H PRN ORAL Temp >100.5 03/14/20 16:15 04/13/20 16:14 03/16/20 05:11 Amlodipine Besylate (Norvasc) 5 mg DAILY ORAL 03/13/20 09:00 04/12/20 08:59 03/19/20 09:00 Azithromycin (Zithromax) 500 mg DAILY ORAL 03/13/20 16:30 03/21/20 16:29 03/19/20 09:00 Ceftriaxone Sodium 1 gm/ Dextrose 55 ml @ 110 mls/hr Q24H IVPB 03/14/20 18:00 03/21/20 17:59 03/19/20 17:30 Cetylpyridinium Chloride (Cepacol) 1 lozg Q6H PRN CARRIE sore throat 03/18/20 09:15 06/16/20 09:14 03/18/20 09:26 Dexamethasone (Decadron) 6 mg DAILY ORAL 03/17/20 09:00 03/25/20 09:01 03/19/20 09:01 Dextrose (Dextrose 50%) 25 ml Q30M PRN IV Hypoglycemia 03/12/20 16:45 06/10/20 16:44 Dextrose (Dextrose 50%) 50 ml Q30M PRN IV Hypoglycemia 03/12/20 16:45 06/10/20 16:44 Furosemide (Lasix) 40 mg DAILY ORAL 03/13/20 09:00 04/12/20 08:59 03/19/20 09:01 Ibuprofen (Advil) 400 mg Q6H PRN ORAL For Pain 03/12/20 16:45 04/11/20 16:44 03/13/20 06:12 Insulin Aspart (NovoLOG) BEFORE MEALS AND HS SUBQ 03/12/20 21:00 06/10/20 20:59 03/19/20 21:32 Insulin Aspart (NovoLOG) 10 units NOVOTIAC SUBQ 03/19/20 06:30 06/11/20 11:49 03/20/20 06:36 Insulin Detemir (Levemir) 30 units DAILY SUBQ 03/17/20 09:00 06/11/20 08:59 03/19/20 09:05 Ondansetron HCl (Zofran) 4 mg Q6H PRN IVP Nausea & Vomiting 03/12/20 16:45 04/11/20 16:44 Assessment/Plan Assessment/Plan 1. Anosmia and dysgeusia, concern high for COVID-19 pneumonia. - Serology confirmed COVID-19 - Saturating 95% on 3 lpm NC 2. Parkinson's. 3. Confirmed COVID 19 pneumonia - Cont Dexamethasone, zithromax, and rocephin per ID 4. Hep C serology positive - Elevated AST 101 -> 50 -> 54 - Outpatient HCV eradication 5. Uncontrolled blood glucose - A1c 9.8 - glucose-lowering agents added per general MD - sugar improving dc planned for today The care for this patient was discussed with my supervising physician The history of Vesna Fan has been reviewed and management options for her have been examined and discussed by Cezar Byrne. I have personally examined and interviewed the patient. Time spent for this case was approximately 31 minutes Tony Weathers Mar 20, 2020 08:57 Cezar Byrne MD Mar 20, 2020 17:36
[2020-03-20] MEDS: Azithromycin 250mg tab ORAL SCH (09:34)
[2020-03-20] MEDS: Furosemide 40mg tab ORAL SCH (09:34)
--- NOTE | 2020-03-20 09:48 | Cardiac Electrophysiology PN ---
Assessment/Plan Assessment/Plan 1. COVID PNA and loss of sense of smell and taste. Echo EF 65% and ruled out for VT . 2. Hypertension. On Lasix 40 po daily and Norvasc 5 daily 3. Uncontrolled diabetes, on metformin and insulin by Dr. Munoz. 4. Contracted gallbladder packed with stones by abdominal ultrasound. FU Dr Last 5. History of COPD and pulmonary hypertension.On 3 liter NC 6. Hyperlipidemia. PATRICK RN and Dr Manley Subjective Subjective In Covid isolation on 3 liters Nasal Cannula Objective Last 24 Hour Vital Signs Date Time Temp Pulse Resp B/P (MAP) Pulse Ox O2 Delivery O2 Flow Rate FiO2 03/20/20 09:34 95 159/91 03/20/20 04:00 97.8 79 20 129/76 (93) 96 03/20/20 00:00 97.5 84 18 134/75 (94) 95 03/19/20 20:11 Nasal Cannula 3.0 03/19/20 20:00 97.2 88 19 122/78 (93) 96 03/19/20 16:00 97.5 91 20 116/76 (89) 95 03/19/20 12:00 97.2 85 20 128/79 (95) 95 Intake and Output 03/19/20 03/20/20 19:00 07:00 Intake Total 1015 ml 320 ml Output Total 700 ml Balance 315 ml 320 ml Intake Oral 960 ml 320 ml IV Total 55 ml Output Urine Total 700 ml # Voids 1 2 # Bowel Movements 3 1 Laboratory Tests Test 03/19/20 11:56 03/19/20 12:55 03/19/20 17:35 03/20/20 03:30 POC Whole Blood Glucose 243 MG/DL (74-106) H 190 MG/DL (74-106) H Hemoglobin A1c 9.7 % (4.3-6.0) H White Blood Count 7.5 K/UL (4.8-10.8) Red Blood Count 4.01 M/UL (4.20-5.40) L Hemoglobin 12.3 G/DL (12.0-16.0) Hematocrit 34.7 % (37.0-47.0) L Mean Corpuscular Volume 87 FL (80-99) Mean Corpuscular Hemoglobin 30.7 PG (27.0-31.0) Mean Corpuscular Hemoglobin Concent 35.5 G/DL (32.0-36.0) Red Cell Distribution Width 14.1 % (11.6-14.8) Platelet Count 229 K/UL (150-450) Mean Platelet Volume 6.7 FL (6.5-10.1) Neutrophils (%) (Auto) 73.0 % (45.0-75.0) Lymphocytes (%) (Auto) 18.8 % (20.0-45.0) L Monocytes (%) (Auto) 7.3 % (1.0-10.0) Eosinophils (%) (Auto) 0.0 % (0.0-3.0) Basophils (%) (Auto) 0.9 % (0.0-2.0) Sodium Level 138 MMOL/L (136-145) Potassium Level 4.5 MMOL/L (3.5-5.1) Chloride Level 104 MMOL/L (98-107) Carbon Dioxide Level 28 MMOL/L (21-32) Anion Gap 6 mmol/L (5-15) Blood Urea Nitrogen 39 mg/dL (7-18) H Creatinine 1.0 MG/DL (0.55-1.30) Estimat Glomerular Filtration Rate 55.0 mL/min (>60) Glucose Level 79 MG/DL (74-106) Calcium Level 8.7 MG/DL (8.5-10.1) Total Bilirubin 0.1 MG/DL (0.2-1.0) L Aspartate Amino Transf (AST/SGOT) 54 U/L (15-37) H Alanine Aminotransferase (ALT/SGPT) 45 U/L (12-78) Alkaline Phosphatase 54 U/L (46-116) Total Protein 7.2 G/DL (6.4-8.2) Albumin 2.6 G/DL (3.4-5.0) L Globulin 4.6 g/dL Albumin/Globulin Ratio 0.6 (1.0-2.7) L Objective HEAD AND NECK: No JVD. LUNGS: Coarse rhonchi. CARDIOVASCULAR: Regular S1 and S2 with no gallop or murmur. ABDOMEN: Soft. EXTREMITIES: No pitting edema. Noe Galdamez MD Mar 20, 2020 09:48
[2020-03-20] MEDS: Levemir Flexpen SUBQ SCH (09:55)
[2020-03-20 12:00] VITALS: BP 132/91
--- NOTE | 2020-03-20 12:27 | Infectious Diseases Prog Note ---
Assessment/Plan Assessment/Plan IMPRESSION: COVID19 disease, COPD, may have mild exacerbation. MRSA carrier Diabetes mellitus with hyperglycemia, Pulmonary hypertension, Diastolic CHF, Parkinson disease, Elevated transaminase, anemia. RECOMMENDATION: Discontinue Zithromax & Rocephin. Discontinue Dexamethasone Continue oxygen Subjective ROS Limited/Unobtainable: Yes Respiratory: Reports: shortness of breath, other - mild Gastrointestinal/Abdominal: Reports: no symptoms Genitourinary: Reports: no symptoms Allergies: Coded Allergies: No Known Allergies (Unverified , 11/08/15) Objective Last 24 Hour Vital Signs Date Time Temp Pulse Resp B/P (MAP) Pulse Ox O2 Delivery O2 Flow Rate FiO2 03/20/20 09:34 95 159/91 03/20/20 08:00 97.0 95 20 159/91 (113) 90 03/20/20 04:00 97.8 79 20 129/76 (93) 96 03/20/20 00:00 97.5 84 18 134/75 (94) 95 03/19/20 20:11 Nasal Cannula 3.0 03/19/20 20:00 97.2 88 19 122/78 (93) 96 03/19/20 16:00 97.5 91 20 116/76 (89) 95 Height (Feet): 5 Height (Inches): 4.00 Weight (Pounds): 185 General Appearance: no acute distress HEENT: mucous membranes moist Respiratory/Chest: lungs clear, other - oxygen by nasal cannula Abdomen: soft, non tender Extremities: no edema Neurologic/Psychiatric: alert, responsive, other - tremor Laboratory Tests Test 03/19/20 12:55 03/19/20 17:35 03/20/20 03:30 03/20/20 09:48 Hemoglobin A1c 9.7 % (4.3-6.0) H POC Whole Blood Glucose 190 MG/DL (74-106) H 61 MG/DL (74-106) L White Blood Count 7.5 K/UL (4.8-10.8) Red Blood Count 4.01 M/UL (4.20-5.40) L Hemoglobin 12.3 G/DL (12.0-16.0) Hematocrit 34.7 % (37.0-47.0) L Mean Corpuscular Volume 87 FL (80-99) Mean Corpuscular Hemoglobin 30.7 PG (27.0-31.0) Mean Corpuscular Hemoglobin Concent 35.5 G/DL (32.0-36.0) Red Cell Distribution Width 14.1 % (11.6-14.8) Platelet Count 229 K/UL (150-450) Mean Platelet Volume 6.7 FL (6.5-10.1) Neutrophils (%) (Auto) 73.0 % (45.0-75.0) Lymphocytes (%) (Auto) 18.8 % (20.0-45.0) L Monocytes (%) (Auto) 7.3 % (1.0-10.0) Eosinophils (%) (Auto) 0.0 % (0.0-3.0) Basophils (%) (Auto) 0.9 % (0.0-2.0) Sodium Level 138 MMOL/L (136-145) Potassium Level 4.5 MMOL/L (3.5-5.1) Chloride Level 104 MMOL/L (98-107) Carbon Dioxide Level 28 MMOL/L (21-32) Anion Gap 6 mmol/L (5-15) Blood Urea Nitrogen 39 mg/dL (7-18) H Creatinine 1.0 MG/DL (0.55-1.30) Estimat Glomerular Filtration Rate 55.0 mL/min (>60) Glucose Level 79 MG/DL (74-106) Calcium Level 8.7 MG/DL (8.5-10.1) Total Bilirubin 0.1 MG/DL (0.2-1.0) L Aspartate Amino Transf (AST/SGOT) 54 U/L (15-37) H Alanine Aminotransferase (ALT/SGPT) 45 U/L (12-78) Alkaline Phosphatase 54 U/L (46-116) Total Protein 7.2 G/DL (6.4-8.2) Albumin 2.6 G/DL (3.4-5.0) L Globulin 4.6 g/dL Albumin/Globulin Ratio 0.6 (1.0-2.7) L Test 03/20/20 10:12 03/20/20 11:49 POC Whole Blood Glucose 106 MG/DL (74-106) 239 MG/DL (74-106) H Current Medications Medications (Trade) Dose Ordered Sig/Tenzin Route PRN Reason Start Time Stop Time Status Last Admin Dose Admin Acetaminophen (Tylenol) 500 mg Q4H PRN ORAL Temp >100.5 03/14/20 16:15 04/13/20 16:14 03/16/20 05:11 Amlodipine Besylate (Norvasc) 5 mg DAILY ORAL 03/13/20 09:00 04/12/20 08:59 03/20/20 09:34 Azithromycin (Zithromax) 500 mg DAILY ORAL 03/13/20 16:30 03/21/20 16:29 03/20/20 09:34 Ceftriaxone Sodium 1 gm/ Dextrose 55 ml @ 110 mls/hr Q24H IVPB 03/14/20 18:00 03/21/20 17:59 03/19/20 17:30 Cetylpyridinium Chloride (Cepacol) 1 lozg Q6H PRN CARRIE sore throat 03/18/20 09:15 06/16/20 09:14 03/18/20 09:26 Dexamethasone (Decadron) 6 mg DAILY ORAL 03/17/20 09:00 03/25/20 09:01 03/20/20 09:34 Dextrose (Dextrose 50%) 25 ml Q30M PRN IV Hypoglycemia 03/12/20 16:45 06/10/20 16:44 Dextrose (Dextrose 50%) 50 ml Q30M PRN IV Hypoglycemia 03/12/20 16:45 06/10/20 16:44 Furosemide (Lasix) 40 mg DAILY ORAL 03/13/20 09:00 04/12/20 08:59 03/20/20 09:34 Ibuprofen (Advil) 400 mg Q6H PRN ORAL For Pain 03/12/20 16:45 04/11/20 16:44 03/13/20 06:12 Insulin Aspart (NovoLOG) BEFORE MEALS AND HS SUBQ 03/12/20 21:00 06/10/20 20:59 03/20/20 11:55 Insulin Aspart (NovoLOG) 10 units NOVOTIAC SUBQ 03/19/20 06:30 06/11/20 11:49 03/20/20 11:59 Insulin Detemir (Levemir) 30 units DAILY SUBQ 03/17/20 09:00 06/11/20 08:59 03/19/20 09:05 Ondansetron HCl (Zofran) 4 mg Q6H PRN IVP Nausea & Vomiting 03/12/20 16:45 04/11/20 16:44 Rogelio Martinez MD Mar 20, 2020 12:27
[2020-03-20 16:00] VITALS: BP 134/97
--- NOTE | 2020-03-20 17:03 | Surgery Progress Note ---
Surgery Progress Note Subjective Symptoms: improved, tolerating diet, passing flatus, BM Objective Last 24 Hour Vital Signs Date Time Temp Pulse Resp B/P (MAP) Pulse Ox O2 Delivery O2 Flow Rate FiO2 03/20/20 12:00 97.2 98 19 132/91 (105) 90 03/20/20 09:34 95 159/91 03/20/20 09:00 Nasal Cannula 2.0 03/20/20 08:00 97.0 95 20 159/91 (113) 90 03/20/20 04:00 97.8 79 20 129/76 (93) 96 03/20/20 00:00 97.5 84 18 134/75 (94) 95 03/19/20 20:11 Nasal Cannula 3.0 03/19/20 20:00 97.2 88 19 122/78 (93) 96 I&O Intake and Output 03/19/20 03/20/20 19:00 07:00 Intake Total 1015 ml 320 ml Output Total 700 ml Balance 315 ml 320 ml Intake Oral 960 ml 320 ml IV Total 55 ml Output Urine Total 700 ml # Voids 1 2 # Bowel Movements 3 1 Cardiovascular: RSR Respiratory: decreased breath sounds Abdomen: non-tender, present bowel sounds, non-distended Extremities: no edema, no tenderness, no cyanosis Laboratory Tests Test 03/19/20 17:35 03/20/20 03:30 03/20/20 09:48 03/20/20 10:12 POC Whole Blood Glucose 190 MG/DL (74-106) H 61 MG/DL (74-106) L 106 MG/DL (74-106) White Blood Count 7.5 K/UL (4.8-10.8) Red Blood Count 4.01 M/UL (4.20-5.40) L Hemoglobin 12.3 G/DL (12.0-16.0) Hematocrit 34.7 % (37.0-47.0) L Mean Corpuscular Volume 87 FL (80-99) Mean Corpuscular Hemoglobin 30.7 PG (27.0-31.0) Mean Corpuscular Hemoglobin Concent 35.5 G/DL (32.0-36.0) Red Cell Distribution Width 14.1 % (11.6-14.8) Platelet Count 229 K/UL (150-450) Mean Platelet Volume 6.7 FL (6.5-10.1) Neutrophils (%) (Auto) 73.0 % (45.0-75.0) Lymphocytes (%) (Auto) 18.8 % (20.0-45.0) L Monocytes (%) (Auto) 7.3 % (1.0-10.0) Eosinophils (%) (Auto) 0.0 % (0.0-3.0) Basophils (%) (Auto) 0.9 % (0.0-2.0) Sodium Level 138 MMOL/L (136-145) Potassium Level 4.5 MMOL/L (3.5-5.1) Chloride Level 104 MMOL/L (98-107) Carbon Dioxide Level 28 MMOL/L (21-32) Anion Gap 6 mmol/L (5-15) Blood Urea Nitrogen 39 mg/dL (7-18) H Creatinine 1.0 MG/DL (0.55-1.30) Estimat Glomerular Filtration Rate 55.0 mL/min (>60) Glucose Level 79 MG/DL (74-106) Calcium Level 8.7 MG/DL (8.5-10.1) Total Bilirubin 0.1 MG/DL (0.2-1.0) L Aspartate Amino Transf (AST/SGOT) 54 U/L (15-37) H Alanine Aminotransferase (ALT/SGPT) 45 U/L (12-78) Alkaline Phosphatase 54 U/L (46-116) Total Protein 7.2 G/DL (6.4-8.2) Albumin 2.6 G/DL (3.4-5.0) L Globulin 4.6 g/dL Albumin/Globulin Ratio 0.6 (1.0-2.7) L Test 03/20/20 11:49 03/20/20 16:43 POC Whole Blood Glucose 239 MG/DL (74-106) H Pending Plan Problems: (1) Fever (2) Hypoalbuminemia (3) Abnormal LFTs (4) Elevated CEA (5) Vaginal discharge (6) Vomiting and diarrhea (7) COPD exacerbation (8) Dehydration (9) Constipation (10) Cholelithiasis (11) Severe sepsis (12) Altered level of consciousness (13) MER (acute kidney injury) (14) Pulmonary hypertension (15) Renal insufficiency (16) Hyperglycemia (17) Gall stones (18) Nausea & vomiting (19) Elevated lactic acid level (20) Abdominal pain Assessment & Plan: 69F with acute abdominal pain. likely biliary colic? resolved now does not seem likely cholecystitis as resolved quickly US noted. lft's mild elevated improving lip wnl pain resolving no n/v US noted lab snoted okay for diet cont iv fluids cont abx will follow with serial exams Liver: Liver measures 14.4 cm. No intrahepatic bile duct dilation. Gallbladder: Stones and sludge in the gallbladder. Nonspecific mild prominence of the gallbladder wall which appears to contain calcifications. No significant pericholecystic fluid. Negative sonographic Vargas's sign. Common bile duct: Normal common bile duct measuring 3.3 mm. No stones. No dilation. Pancreas: Pancreas is not well-visualized due to overlying bowel gas. Kidneys: Right kidney measures 8.8 cm in length. No hydronephrosis or stone. Left kidney measures 9.6 cm in length. No hydronephrosis. Nonobstructing left renal stones measuring up to 10 mm. Spleen: Spleen measures 8.8 cm. No focal lesion. Aorta: Unremarkable. No aneurysm. Inferior vena cava: Unremarkable. Free fluid: No ascites. IMPRESSION: 1. Stones and sludge in the gallbladder. Nonspecific mild prominence of the gallbladder wall which appears to contain calcifications. No significant pericholecystic fluid. Negative sonographic Vargas's sign. 2. Left renal stones. (21) UTI (urinary tract infection) (22) Encephalopathy (23) Anemia (24) Hyperlipidemia associated with type 2 diabetes mellitus (25) Type 2 diabetes mellitus (26) Azotemia Oliver Last Mar 20, 2020 17:03
--- NOTE | 2020-03-20 21:24 | General Progress Note ---
Subjective Allergies: Coded Allergies: No Known Allergies (Unverified , 11/08/15) Subjective seen this am no abd pain HCV (+) serology Objective Last 24 Hour Vital Signs Date Time Temp Pulse Resp B/P (MAP) Pulse Ox O2 Delivery O2 Flow Rate FiO2 03/20/20 16:00 97.0 95 19 134/97 (109) 91 03/20/20 12:00 97.2 98 19 132/91 (105) 90 03/20/20 09:34 95 159/91 03/20/20 09:00 Nasal Cannula 2.0 03/20/20 08:00 97.0 95 20 159/91 (113) 90 03/20/20 04:00 97.8 79 20 129/76 (93) 96 03/20/20 00:00 97.5 84 18 134/75 (94) 95 Intake and Output 03/19/20 03/20/20 19:00 07:00 Intake Total 1015 ml 320 ml Output Total 700 ml Balance 315 ml 320 ml Intake Oral 960 ml 320 ml IV Total 55 ml Output Urine Total 700 ml # Voids 1 2 # Bowel Movements 3 1 Laboratory Tests 03/20/20 03:30: White Blood Count 7.5, Red Blood Count 4.01L, Hemoglobin 12.3, Hematocrit 34.7L, Mean Corpuscular Volume 87, Mean Corpuscular Hemoglobin 30.7, Mean Corpuscular Hemoglobin Concent 35.5, Red Cell Distribution Width 14.1, Platelet Count 229, Mean Platelet Volume 6.7, Neutrophils (%) (Auto) 73.0, Lymphocytes (%) (Auto) 18.8L, Monocytes (%) (Auto) 7.3, Eosinophils (%) (Auto) 0.0, Basophils (%) (Auto) 0.9, Sodium Level 138, Potassium Level 4.5, Chloride Level 104, Carbon Dioxide Level 28, Anion Gap 6, Blood Urea Nitrogen 39H, Creatinine 1.0, Estimat Glomerular Filtration Rate 55.0, Glucose Level 79, Calcium Level 8.7, Total Bilirubin 0.1L, Aspartate Amino Transf (AST/SGOT) 54H, Alanine Aminotransferase (ALT/SGPT) 45, Alkaline Phosphatase 54, Total Protein 7.2, Albumin 2.6L, G lobulin 4.6, Albumin/Globulin Ratio 0.6L 03/20/20 09:48: POC Whole Blood Glucose 61L 03/20/20 10:12: POC Whole Blood Glucose 106 03/20/20 11:49: POC Whole Blood Glucose 239H 03/20/20 16:43: POC Whole Blood Glucose [Pending] Height (Feet): 5 Height (Inches): 4.00 Weight (Pounds): 185 Objective WDWN NCAT supple Coarse BS RR abd soft ND NT no edema Assessment/Plan Status: progressing Assessment/Plan: Assessment - vague, mild abd pain - resolved - abnormal LFT- Hepatitis C (+) - cholelithiasis - DM - COVID Recommendations - po as tolerated - d/c planning - Outpatient HCV eradication Sangeeta Bianchi MD Mar 20, 2020 21:24
--- NOTE | 2020-03-22 13:28 | Discharge Summary ---
Discharge Summary Discharge Summary _ DATE OF ADMISSION: 03/12/2020 DATE OF DISCHARGE: 03/20/2020 DISCHARGED BY: Dr. Rios REASON FOR ADMISSION: 69 years old female with past medical history of diabetes mellitus, Parkinson disease, hypertension, COPD, GERD, dementia, seizure disorder, presented with 3 to 4 days of diffuse abdominal pain , more concentrated in the right upper quadrant and associated with nausea and vomiting. Patient reported loss of sense of smell and taste and was concerned of possible COVID-19 infection. She denied diarrhea. She denied constipation ; no blood in the stool . Patient reported history of urinary tract infection in the past, but denied any dysuria. Upon evaluation vital signs were stable. Laboratory work-up revealed no leukocytosis , stable hemoglobin , hematocrit and platelet count. Urinalysis revealed no pyuria, moderate bacteria, +2 protein, +2 glucose. Sodium 134 , potassium 5.2 ,chloride 97. BUN 42 creatinine 1.8. Lactic acid 3.1, repeated 1.5 Glucose 434. AST 101 , ALT 90. Lipase 281 Troponin 0.042 , pro BNP 1011. \EKG reveals sinus rhythm no acute ischemic changes CRP 0.5 , LDH 276, Chest x-ray revealed no acute cardiopulmonary pathology. Abdominal ultrasound demonstrated stones and sludge in the gallbladder with nonspecific mild prominence of the gallbladder , which appeared to contain calcification. No significant pericholecystic fluid. Negative sonographic Vargas sign. Left renal stone. In emergency department patient received analgesic , placed on gear lapper , received IV hydration and Zofran . Patient pancultured . COVID-19 was positive in emergency department p. Patient subsequently admitted to isolation room to medical surgical floor. CONSULTANTS: invasive cardiologist Dr. Ann general passenger agent Dr. Munoz pulmonary ID specialist Dr. Rogelio Martinez GI specialist Dr. Davalos surgery Dr. Last [facility] COURSE: Patient admitted to medical surgical floor to isolation room. Supplemental oxygen provided and titrated to keep pulse oximetry above 92% ; pulmonary toilet was on board as needed. Blood culture came back negative. Pulse oximetry remained stable on oxygen 2 L via nasal cannula. Patient was on steroids and empiric antibiotics, discontinued prior to disc harge. Hepatitis panel revealed evidence of hepatitis C. LFT trending down. Patient was advised on outpatient HCV eradication. Blood sugar was managed as per general passenger agent recommendation. Patient was on long-acting Levemir , short acting premeal insulin and sliding scale of insulin as needed. Hypoglycemia protocol was in place. Hemoglobin A1c 9.8 clearly not at goal. Diabetic diet and diabetic teaching provided. Patient was counseled on compliance with medication regimen and diet. Patient will need further optimization of anti-glycemic regimen as outpatient to bring blood sugar and hemoglobin A1c under control. Blood pressure was managed with calcium channel ariella and Lasix. Echocardiogram demonstrated preserved ejection fraction 60 to 65%. No evidence of wall motion abnormality. Severe mitral regurgitation. Volumes were closely monitored. Pro BNP from 1011 down to 424. Follow-up chest x-ray revealed no acute cardiopulmonary pathology. Renal parameters and electrolytes were closely monitored, electrolytes corrected as needed; creatinine from 1.8 down to 1.0. Patient clinically stabilized and was ready for discharge FINAL DIAGNOSES: Anosmia and dysgeusia Confirmed COVID-19 pneumonia Parkinson disease Hepatitis C Diabetes mellitus [id number] Hypertension COPD Parkinson disease CHF diastolic Transaminitis DISCHARGE MEDICATIONS: See Medication Reconciliation list. DISCHARGE INSTRUCTIONS: Patient was discharged to the [facility] facility. Follow up with medical doctor at the facility. I have been assigned to dictate discharge summary for this account. I was not involved in the patient's management. Patti Durham NP Mar 22, 2020 13:28
--- NOTE | 2020-03-23 22:32 | Coder Physician Query ---
Clarification is required for compliance, coding accuracy, and to reflect severity of illness for this patient. Dear Dr. 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 She is also admitted for gallstones as well as azotemia, hyperkalemia, and elevated LFTs. WBC:03/12 7.3, 03/13 7.1 , 03/14 5.3, 03/17 6.9, 03/20 7.5 Laboratory work-up revealed no leukocytosis , stable hemoglobin , hematocrit and platelet count. Blood culture came back negative. COVID-19 was positive in emergency department severe sepsis mentioned on your progress notes on 03/14 FINAL DIAGNOSES: Anosmia and dysgeusia Confirmed COVID-19 pneumonia A posssible diagnois of Sepsis was made in the medical record on 03/14/20. Upon review, it is difficult to determine whether this diagnosis has been ruled in, ruled out,or is still being worked up. Please indicate below the status of the aforementioned diagnosis. [] Ruled out [] Treated and resolve [] Currently under treatment [] Still being worked-up Physician signature Date Please also document in your Progress Notes and/or Discharge Summary and indicate if the condition was present on admission. LAVELL
== END 2020-03-20 18:35 | DRG 871 ==
LOC: EDBD 10:22 → EDUNIT# 10:22 → EMR 10:45 → 3E 10:55 → EDBEDREQ 13:23 → 4E 14:18
DX: A41.89 Other specified sepsis (principal); U07.1 COVID-19; J12.89 Other viral pneumonia; J44.1 Chronic obstructive pulmonary disease with (acute) exacerbation; I50.30 Unspecified diastolic (congestive) heart failure; N17.9 Acute kidney failure, unspecified; N39.0 Urinary tract infection, site not specified; G93.40 Encephalopathy, unspecified; R65.20 Severe sepsis without septic shock; K80.20 Calculus of gallbladder without cholecystitis without obstruction; E11.65 Type 2 diabetes mellitus with hyperglycemia; D64.9 Anemia, unspecified; Z22.322 Carrier or suspected carrier of Methicillin resistant Staphylococcus aureus; I27.20 Pulmonary hypertension, unspecified; E86.0 Dehydration; G20 Parkinson's disease; E87.5 Hyperkalemia; Z87.891 Personal history of nicotine dependence; Z79.4 Long term (current) use of insulin; E78.5 Hyperlipidemia, unspecified; J44.9 Chronic obstructive pulmonary disease, unspecified; I11.0 Hypertensive heart disease with heart failure; G62.9 Polyneuropathy, unspecified; K21.9 Gastro-esophageal reflux disease without esophagitis
CPT/HCPCS: 36415; 71045; 76700; 80053; 80061; 81003; 82150; 82550; 82728; 82962; 82977; 83036; 83605; 83615; 83690; 83735; 83880; 84100; 84300; 84443; 84484; 84550; 85025; 85379; 85610; 85651; 85730; 86140; 86705; 86709; 86803; 86900; 86901; 87040; 87081; 87340; 93005; 93306; 96361; 96365; 96375; 99285; J1815; J2405; J7030; S5561